=== PATIENT | female | born 1955 | race Two or more races ===

== ENCOUNTER 2024-04-03 16:12 | Inpatient (IN) | payer MEDICAID ==
[~2024-04-03] VITALS: Ht 165.1 cm; Wt 78.1 kg
[~2024-04-03 16:12] MED LIST: CEPH-37 PO; CIPR-173 PO; FURO1TAB31 PO; FURO40TA4; IBUP-1456; LISI10TA34; METO25TA5; OXYGEN; POTA-220 PO; POTA-264 OR; WARF-110 PO
[2024-04-03 18:14] LABS: Urine Bacteria FEW /hpf (None Seen); Urine Blood 2+ /uL (Negative); Urine Clarity Turbid (Clear); Urine Color Colorless (Yellow); Urine Hyaline Cast FEW /lpf (0 - 2); Urine Protein, UAD 1+ (Negative); Urine Specific Gravity 1.009 (1.001-1.035); Urine Urobilinogen Normal (Negative); Urine WBC 110 /hpf (0 - 5); Urine pH 5.5 (5.0-9.0)
[2024-04-03 18:49] LABS: Basophils # (auto) 0 10 ^3/uL (0-0.2); Basophils % (auto) 0.6 % (0.0-2.0); Eosinophils # (auto) 0.2 10 ^3/uL (0-0.8); Eosinophils % (auto) 2.1 % (0.0-7.0); Hematocrit 38.7 % (36.0-46.0); Hemoglobin 12.5 g/dL (12.2-16.2); Lymphocytes # (auto) 1.1 10 ^3/uL (0.4-5.4); Mean Corpuscular Hemoglobin 32.1 pg (28.0-32.0); Mean Corpuscular Hgb Conc. 32.3 g/dL (32.0-36.0); Mean Corpuscular Volume 99.4 fL (80.0-100.0); Monocytes # (auto) 0.5 10 ^3/uL (0-1.3); Monocytes % (auto) 7.1 % (0.0-12.0); Neutrophils # (auto) 5.5 10 ^3/uL (1.6-8.6); Neutrophils % (auto) 75.2 % (37.0-80.0); Nucleated Red Blood Cells % 0.1 %; Red Blood Cells 3.89 10^6/uL (4.0-5.20); Red Cell Distribution Width 14.5 % (11.8-14.3); White Blood Cell 7.3 10^3/uL (4.4-10.8)
[2024-04-03 19:01] LABS: Alanine Aminotransferase 10 U/L (7-40); Albumin 4.2 g/dL (3.2-4.8); Alkaline Phosphatase 101 U/L (46-116); Anion Gap 4 (5-15); Aspartate Aminotransferase 16 U/L (13-40); Bilirubin, Total 0.4 mg/dL (0.2-1.0); Blood Urea Nitrogen 50 mg/dL (9-23); Calcium 9.7 mg/dL (8.5-10.1); Carbon Dioxide 35 mmol/L (20-30); Chloride 101 mmol/L (98-107); Glucose 128 mg/dL (74-106); Sodium 140 mmol/L (136-145); Total Protein 7.4 g/dL (5.7-8.2)
[2024-04-03] MEDS ORDERED: ALBUTEROL SULF 2.5 MG/0.5ML(0.5%) NEB SOLN NEB ONE (19:30)
[2024-04-03] MEDS: CALCIUM GLUC 1,000mg/50ml-NS 50 ML IV ONE (21:08)
[2024-04-03] MEDS: FUROSEMIDE 20 MG/2 ML VIAL IV ONE (21:09)
[2024-04-03] MEDS: SODIUM ZIRCONIUM CYCL 10 GM PAK PO ONE (21:09)
[2024-04-03] MEDS: InsuLIN REG 1unit/0.01ml Soln (100units/ml) IV ONE (21:10)
[2024-04-03] MEDS: DEXTROSE (50%) 50ML SYRG IV ONE (21:19)
[2024-04-03] MEDS: SODIUM BICARB 8.4% 50Meq/50ml SYR INJ IV ONE (21:19)
[2024-04-03] MEDS ORDERED: ONDANSETRON HCL 4 MG/2 ML VIAL IV PRN (21:45)
[2024-04-03] MEDS ORDERED: DEXTROSE (50%) 50ML SYRG IV PRN (21:45)
[2024-04-03] MEDS ORDERED: ALBUTEROL SULF 2.5 MG/0.5ML(0.5%) NEB SOLN NEB PRN (21:45)
[2024-04-03] MEDS ORDERED: NITROGLYCERIN 0.4 MG SL TAB SL PRN (21:45)
[2024-04-03] MEDS: cefTRIAXone 1GM/50ML D5W 50 ML IV ONE (22:15)
[2024-04-03] MEDS: ATORVASTATIN 20 MG TAB PO SCH (22:15)
[2024-04-03 22:40] LABS: INR 1.02 (0.9-1.15); Partial Thromboplastin Time 23.8 SEC (24.5-34.5); Prothrombin Time 10.8 sec (9.3-11.8)
[2024-04-03] MEDS: InsuLIN REG 1unit/0.01ml Soln (100units/ml) SC SCH (22:49)
[2024-04-03] MEDS: ACCU-CHEK COMFORT CURVE STRIP VI SCH (22:49)
[2024-04-03] MEDS: METOPROLOL TARTRATE 50 MG TAB PO ONE (22:54)
[2024-04-03 23:43] VITALS: BP 147/69; PULSE 109; RESP 20; TEMP 98; O2SAT 100; O2SAT 97
[2024-04-04] MEDS: HYDROcodone-ACET 7.5/325MG TAB ONE (01:17)
[2024-04-04] MEDS: HYDROcodone-ACET 7.5/325MG TAB PO PRN (01:54)
[2024-04-04 05:02] LABS: Basophils # (auto) 0 10 ^3/uL (0-0.2); Basophils % (auto) 0.4 % (0.0-2.0); Eosinophils # (auto) 0.1 10 ^3/uL (0-0.8); Lymphocytes % (auto) 12.5 % (10.0-50.0); Mean Corpuscular Hemoglobin 32.7 pg (28.0-32.0); Mean Corpuscular Hgb Conc. 32.3 g/dL (32.0-36.0); Mean Corpuscular Volume 101.2 fL (80.0-100.0); Monocytes # (auto) 0.6 10 ^3/uL (0-1.3); Monocytes % (auto) 7.9 % (0.0-12.0); Neutrophils # (auto) 6.4 10 ^3/uL (1.6-8.6); Neutrophils % (auto) 78.2 % (37.0-80.0); Nucleated Red Blood Cells % 0.1 %; Red Blood Cells 3.66 10^6/uL (4.0-5.20); Red Cell Distribution Width 14.5 % (11.8-14.3); White Blood Cell 8.2 10^3/uL (4.4-10.8)
[2024-04-04] MEDS: ENOXAPARIN SOD 100 MG/1 ML SYRINGE SC ONE (05:27)
[2024-04-04 05:51] LABS: Albumin 3.7 g/dL (3.2-4.8); Alkaline Phosphatase 89 U/L (46-116); Anion Gap 6 (5-15); Aspartate Aminotransferase 16 U/L (13-40); BUN/Creatinine Ratio 26.3 (10.0-20.0); Bilirubin, Total 0.3 mg/dL (0.2-1.0); Calcium 9.4 mg/dL (8.5-10.1); Carbon Dioxide 27 mmol/L (20-30); Chloride 101 mmol/L (98-107); Glucose 131 mg/dL (74-106); Potassium 4.8 mmol/L (3.5-5.1); Total Protein 7.1 g/dL (5.7-8.2)
[2024-04-04 05:52] LABS: Alanine Aminotransferase 9 U/L (7-40); Blood Urea Nitrogen 30 mg/dL (9-23); Sodium 134 mmol/L (136-145)
[2024-04-04] MEDS: FUROSEMIDE 20 MG/2 ML VIAL IV SCH (06:50)
[2024-04-04 07:23] VITALS: PULSE 96; RESP 18; O2SAT 91
[2024-04-04] MEDS: ASPirin 81 mg TAB PO SCH ×2 (10:00→10:18)
[2024-04-04] MEDS: SPIRONOLACTONE 25 MG TAB PO SCH (10:18)
[2024-04-04] MEDS: BENAZEPRIL HCL 10 MG TAB PO SCH (10:19)
[2024-04-04] MEDS: METOPROLOL TARTRATE 50 MG TAB PO SCH (10:19)
[2024-04-04 10:26] VITALS: O2SAT 99
[2024-04-04 11:48] LABS: Magnesium 2.6 mg/dL (1.6-2.6)
[2024-04-04 11:50] LABS: Phosphorus 3.9 mg/dL (2.4-5.1)
[2024-04-04 12:53] LABS: Protein, Urine 14.4 mg/dL (0.0-11.9)
[2024-04-04 12:56] LABS: Creatinine, Urine 32.18 mg/dL (30.0-125.0); Urine Protein/Creatinine Ratio 0.45
[2024-04-04 13:19] LABS: Base Excess 7.8 mmol/L (-2.0-2.0)
[2024-04-04 18:34] VITALS: BP 106/62; PULSE 99; RESP 17; TEMP 98.1; O2SAT 95
[2024-04-04] MEDS ORDERED: BENA-36 PO (18:55)
[2024-04-04] MEDS ORDERED: ASPI81CH59 PO (18:56)
[2024-04-04] MEDS ORDERED: SPIR25TA8 PO (18:56)
[2024-04-04] MEDS ORDERED: METO25TA5 PO (18:57)
[2024-04-04] MEDS ORDERED: FURO80TA3 PO (18:58)
[2024-04-04] MEDS ORDERED: IBUP-1454 PO (19:02)
[2024-04-04] MEDS ORDERED: HYDR-4798 PO (19:04)
[2024-04-04 20:00] VITALS: BP 111/55; PULSE 107; PULSE 87; RESP 22; TEMP 97.7; O2SAT 96
[2024-04-04 20:55] LABS: Triglycerides 163 mg/dL (< 150)
[2024-04-04 20:56] LABS: LDL Cholesterol 127 mg/dL (< 100)
[2024-04-04 20:57] LABS: Cholesterol 192 mg/dL (< 200); HDL Cholesterol 48 mg/dL (40-59)
[2024-04-04 21:00] VITALS: BP 111/55; PULSE 87; RESP 22; TEMP 97.7; O2SAT 95
[2024-04-04] MEDS ORDERED: AZITHROMYCIN 500MG/ 250ML 250 ML IV SCH (21:00)
[2024-04-04] MEDS: DOXYCYCLINE 100MG/250ML 250 ML IV SCH (21:01)
[2024-04-04] MEDS: cefTRIAXone 1GM/50ML D5W 50 ML IV SCH (21:01)
[2024-04-04] MEDS: ATORVASTATIN 20 MG TAB PO SCH (21:02)
[2024-04-04] MEDS: ENOXAPARIN SOD 150 MG/1 ML SYRINGE SC SCH (23:00)
[2024-04-05] VITALS (9 sets, daily range): BP systolic 98–131; BP diastolic 62–75; PULSE 69–107; RESP 15–18; TEMP 97.6–98.4; O2SAT 94–100
[2024-04-05 07:36] LABS: Base Excess 8.2 mmol/L (-2.0-2.0)
[2024-04-05] MEDS: ASPirin 81 mg TAB PO SCH (08:52)
[2024-04-05] MEDS ORDERED: ENOXAPARIN SOD 100 MG/1 ML SYRINGE SC SCH (09:00)
[2024-04-05 09:59] LABS: Basophils # (auto) 0 10 ^3/uL (0-0.2); Basophils % (auto) 0.7 % (0.0-2.0); Eosinophils # (auto) 0.2 10 ^3/uL (0-0.8); Eosinophils % (auto) 2.9 % (0.0-7.0); Hematocrit 36.8 % (36.0-46.0); Hemoglobin 11.7 g/dL (12.2-16.2); Lymphocytes # (auto) 0.9 10 ^3/uL (0.4-5.4); Lymphocytes % (auto) 15.5 % (10.0-50.0); Mean Corpuscular Hemoglobin 31.8 pg (28.0-32.0); Mean Corpuscular Hgb Conc. 31.7 g/dL (32.0-36.0); Mean Corpuscular Volume 100.3 fL (80.0-100.0); Monocytes # (auto) 0.4 10 ^3/uL (0-1.3); Monocytes % (auto) 6.8 % (0.0-12.0); Neutrophils # (auto) 4.1 10 ^3/uL (1.6-8.6); Neutrophils % (auto) 74.1 % (37.0-80.0); Nucleated Red Blood Cells % 0.2 %; Red Blood Cells 3.67 10^6/uL (4.0-5.20); Red Cell Distribution Width 14.1 % (11.8-14.3); White Blood Cell 5.6 10^3/uL (4.4-10.8)
[2024-04-05 10:35] LABS: Albumin 3.7 g/dL (3.2-4.8); Alkaline Phosphatase 90 U/L (46-116); Anion Gap 4 (5-15); Aspartate Aminotransferase 18 U/L (13-40); BUN/Creatinine Ratio 27.4 (10.0-20.0); Bilirubin, Total 0.4 mg/dL (0.2-1.0); Blood Urea Nitrogen 26 mg/dL (9-23); Calcium 9.5 mg/dL (8.5-10.1); Carbon Dioxide 34 mmol/L (20-30); Chloride 98 mmol/L (98-107); Glucose 141 mg/dL (74-106); Magnesium 2.3 mg/dL (1.6-2.6); Potassium 4.6 mmol/L (3.5-5.1); Sodium 136 mmol/L (136-145)
[2024-04-05 10:53] LABS: Alanine Aminotransferase < 9 U/L (7-40)
[2024-04-05] MEDS: LACTULOSE 20Gm/30ML SOLN PO SCH (14:57)
[2024-04-06] VITALS (7 sets, daily range): BP systolic 91–146; BP diastolic 55–70; PULSE 72–107; RESP 16–20; TEMP 36.8; O2SAT 93–98
[2024-04-06] MEDS ORDERED: AMOX500T86 PO (09:14)
== END 2024-04-06 14:45 | disposition home or self-care (01) | DRG 137 ==
LOC: ER 16:12 → TELE 21:53 → TELE-CENTR 04-04 17:54
PROVIDERS: ADMIT Internal Medicine Pulmonary Disease; ATTEND Internal Medicine Pulmonary Disease
DX: J15.69 Pneumonia due to other Gram-negative bacteria (principal); J96.01 Acute respiratory failure with hypoxia; I50.33 Acute on chronic diastolic (congestive) heart failure; I13.0 Hypertensive heart and chronic kidney disease with heart failure and stage 1 through stage 4 chronic kidney disease, or unspecified chronic kidney disease; E87.4 Mixed disorder of acid-base balance; E11.22 Type 2 diabetes mellitus with diabetic chronic kidney disease; J15.9 Unspecified bacterial pneumonia; E87.5 Hyperkalemia; Z68.28 Body mass index [BMI] 28.0-28.9, adult; E66.01 Morbid (severe) obesity due to excess calories; N18.9 Chronic kidney disease, unspecified; G47.33 Obstructive sleep apnea (adult) (pediatric); E78.5 Hyperlipidemia, unspecified; M19.90 Unspecified osteoarthritis, unspecified site; I48.20 Chronic atrial fibrillation, unspecified; I25.10 Atherosclerotic heart disease of native coronary artery without angina pectoris; N95.0 Postmenopausal bleeding; Z79.82 Long term (current) use of aspirin; Z79.899 Other long term (current) drug therapy
CPT/HCPCS: 36415; 36600; 71045; 71275; 76604; 76775; 76830; 76856; 80053; 80061; 81001; 82306; 82570; 82805; 82962; 83036; 83735; 83880; 83970; 84100; 84156; 84300; 84484; 85025; 85379; 85610; 85730; 93005; 93306; 93970; 94644; G0378; J1815; J3490

== ENCOUNTER 2024-06-27 03:04 | Inpatient (IN) | payer MEDICAID ==
[~2024-06-27] VITALS: Ht 165.1 cm; Wt 178.0 kg
[~2024-06-27 03:04] MED LIST changes: +AMOX500T86 PO; +ASPI81CH59 PO; +BENA-36 PO; -CEPH-37 PO; -CIPR-173 PO; -FURO1TAB31 PO; -FURO40TA4; +FURO80TA3 PO; +HYDR-4798 PO; +IBUP-1454 PO; -IBUP-1456; -LISI10TA34; -METO25TA5; +METO25TA5 PO; -POTA-220 PO; +SPIR25TA8 PO; -WARF-110 PO
[2024-06-27 03:27] LABS: Basophils # (auto) 0 10 ^3/uL (0-0.2); Basophils % (auto) 0.6 % (0.0-2.0); Eosinophils # (auto) 0.1 10 ^3/uL (0-0.8); Eosinophils % (auto) 1.9 % (0.0-7.0); Hematocrit 35.6 % (36.0-46.0); Hemoglobin 11.1 g/dL (12.2-16.2); Lymphocytes # (auto) 1.3 10 ^3/uL (0.4-5.4); Lymphocytes % (auto) 21.4 % (10.0-50.0); Mean Corpuscular Hemoglobin 27.9 pg (28.0-32.0); Mean Corpuscular Hgb Conc. 31.2 g/dL (32.0-36.0); Mean Corpuscular Volume 89.3 fL (80.0-100.0); Monocytes # (auto) 0.5 10 ^3/uL (0-1.3); Monocytes % (auto) 8.6 % (0.0-12.0); Neutrophils # (auto) 4.2 10 ^3/uL (1.6-8.6); Neutrophils % (auto) 67.5 % (37.0-80.0); Nucleated Red Blood Cells % 0.1 %; Red Blood Cells 3.99 10^6/uL (4.0-5.20); Red Cell Distribution Width 16.7 % (11.8-14.3); White Blood Cell 6.2 10^3/uL (4.4-10.8)
[2024-06-27 03:40] LABS: Albumin 4.2 g/dL (3.2-4.8); Alkaline Phosphatase 91 U/L (46-116); Anion Gap 4 (5-15); Aspartate Aminotransferase < 8 U/L (13-40); BUN/Creatinine Ratio 26.8 (10.0-20.0); Blood Urea Nitrogen 33 mg/dL (9-23); Calcium 9.8 mg/dL (8.7-10.4); Carbon Dioxide 35 mmol/L (20-30); Chloride 99 mmol/L (98-107); Glucose 129 mg/dL (74-106); Magnesium 2.7 mg/dL (1.6-2.6); Potassium 5.4 mmol/L (3.5-5.1); Sodium 138 mmol/L (136-145)
[2024-06-27 03:41] LABS: Bilirubin, Total 0.6 mg/dL (0.2-1.0); Total Protein 7.4 g/dL (5.7-8.2)
[2024-06-27 03:44] LABS: INR 1.05 (0.9-1.15); Partial Thromboplastin Time 24.5 SEC (24.5-34.5); Prothrombin Time 11.1 sec (9.3-11.8)
[2024-06-27 03:45] LABS: Alanine Aminotransferase < 9 U/L (7-40)
[2024-06-27] MEDS: dilTIAZem 125mg/125ml BAG KIT 125 ML IV ONE (04:35)
[2024-06-27] MEDS: dilTIAZem 25 MG/5 ML VIAL IV ONE ×2 (04:41→05:55)
[2024-06-27 04:51] LABS: INR 1.03 (0.9-1.15); Prothrombin Time 10.9 sec (9.3-11.8)
[2024-06-27] MEDS: HYDROcodone-ACET 10/325MG TAB PO ONE (04:57)
[2024-06-27] MEDS: ASPirin 81 mg TAB PO ONE (05:50)
[2024-06-27 06:12] LABS: Urine Bacteria FEW /hpf (None Seen); Urine Blood TRACE /uL (Negative); Urine Clarity Clear (Clear); Urine Color Yellow (Yellow); Urine Protein, UAD Negative (Negative); Urine Urobilinogen Normal (Negative); Urine WBC 6 /hpf (0 - 5); Urine pH 6.5 (5.0-9.0)
[2024-06-27] MEDS ORDERED: PATIENTS OWN MEDICATION (Lisinopril 40 MG) PO SCH (10:00)
[2024-06-27] MEDS ORDERED: NITROGLYCERIN 0.4 MG SL TAB SL PRN (10:00)
[2024-06-27] MEDS ORDERED: PATIENTS OWN MEDICATION (Carvedilol (Coreg) 1 TAB) PO SCH (10:00)
[2024-06-27] MEDS: HYDROcodone-ACET 5/325MG TAB PO PRN (10:52)
[2024-06-27] MEDS: SODIUM ZIRCONIUM CYCL 10 GM PAK PO ONE (10:52)
[2024-06-27] MEDS: BUMETANIDE 2.5mg/10ml (0.25 mg/ml) INJ IV ONE (10:56)
[2024-06-27 11:17] LABS: Triglycerides 98 mg/dL (< 150)
[2024-06-27 11:18] LABS: LDL Cholesterol 43 mg/dL (< 100)
[2024-06-27 11:19] LABS: Cholesterol 105 mg/dL (< 200); HDL Cholesterol 48 mg/dL (40-59)
[2024-06-27 11:49] LABS: Amphetamine Screen, Urine Neg (NEGATIVE); Barbiturate Scree,Urine Neg (NEGATIVE); Benzodiazephine Screen, Urine Neg (NEGATIVE); Cannabinoid Screen, Urine Neg (NEGATIVE); Cocaine Screen, Urine Neg (NEGATIVE); Opiate Scree,Urine Pos (NEGATIVE); Phencyclidine Screen, Urine Neg (NEGATIVE)
[2024-06-27 12:25] VITALS: BP 112/64; PULSE 94; RESP 16; TEMP 98.1; O2SAT 96
[2024-06-27 16:00] VITALS: BP 101/67; PULSE 83; RESP 20; TEMP 98.3; O2SAT 98
[2024-06-27] MEDS: BUMETANIDE 2.5mg/10ml (0.25 mg/ml) INJ IV SCH (18:22)
[2024-06-27] MEDS: dilTIAZem HCL 60 MG TAB PO SCH (18:23)
[2024-06-27 20:00] VITALS: PULSE 115; PULSE 92; RESP 20; O2SAT 96
[2024-06-27 21:00] VITALS: BP 102/56; PULSE 92; RESP 20; TEMP 98.8; O2SAT 96
[2024-06-27] MEDS: ATORVASTATIN 20 MG TAB PO SCH (22:12)
[2024-06-27] MEDS: CARVEDILOL 12.5 MG TAB PO SCH (22:13)
[2024-06-28] VITALS (9 sets, daily range): BP systolic 83–134; BP diastolic 37–89; PULSE 59–95; RESP 16–20; TEMP 97.5–98.7; O2SAT 93–99
[2024-06-28 06:44] LABS: Basophils # (auto) 0 10 ^3/uL (0-0.2); Basophils % (auto) 0.5 % (0.0-2.0); Eosinophils # (auto) 0.1 10 ^3/uL (0-0.8); Eosinophils % (auto) 2.3 % (0.0-7.0); Hematocrit 31.8 % (36.0-46.0); Hemoglobin 9.9 g/dL (12.2-16.2); Lymphocytes # (auto) 0.7 10 ^3/uL (0.4-5.4); Lymphocytes % (auto) 14.8 % (10.0-50.0); Mean Corpuscular Hemoglobin 27.8 pg (28.0-32.0); Mean Corpuscular Hgb Conc. 31.2 g/dL (32.0-36.0); Monocytes # (auto) 0.4 10 ^3/uL (0-1.3); Monocytes % (auto) 8.6 % (0.0-12.0); Neutrophils # (auto) 3.7 10 ^3/uL (1.6-8.6); Neutrophils % (auto) 73.8 % (37.0-80.0); Nucleated Red Blood Cells % 0.1 %; Red Blood Cells 3.57 10^6/uL (4.0-5.20)
[2024-06-28 06:50] LABS: Albumin 3.6 g/dL (3.2-4.8); Alkaline Phosphatase 76 U/L (46-116); Anion Gap 0 (5-15); Aspartate Aminotransferase < 8 U/L (13-40); BUN/Creatinine Ratio 28.6 (10.0-20.0); Bilirubin, Total 0.8 mg/dL (0.2-1.0); Blood Urea Nitrogen 30 mg/dL (9-23); Calcium 9.4 mg/dL (8.7-10.4); Carbon Dioxide 39 mmol/L (20-30); Chloride 100 mmol/L (98-107); Glucose 103 mg/dL (74-106); Sodium 139 mmol/L (136-145); Total Protein 6.4 g/dL (5.7-8.2)
[2024-06-28 07:20] LABS: Alanine Aminotransferase < 9 U/L (7-40); Potassium 5.6 mmol/L (3.5-5.1)
[2024-06-28] MEDS: SODIUM ZIRCONIUM CYCL 10 GM PAK PO ONE (09:37)
[2024-06-28] MEDS: LISINOPRIL 20 MG TAB PO SCH (09:38)
[2024-06-28] MEDS: LORazepam 2MG/ML-1ML VIAL IV PRN (09:39)
[2024-06-28] MEDS ORDERED: CYCL-839 PO (17:20)
[2024-06-28] MEDS ORDERED: OMEP1CAP70 PO (17:20)
[2024-06-28] MEDS ORDERED: ATOR20TA PO (17:20)
[2024-06-28] MEDS ORDERED: BUMEX2MG PO (17:20)
[2024-06-28 23:24] LABS: Alkaline Phosphatase 72 U/L (46-116); Aspartate Aminotransferase 12 U/L (13-40); BUN/Creatinine Ratio 31.1 (10.0-20.0); Blood Urea Nitrogen 32 mg/dL (9-23); Carbon Dioxide 37 mmol/L (20-30); Chloride 100 mmol/L (98-107); Glucose 119 mg/dL (74-106); Potassium 5.4 mmol/L (3.5-5.1)
[2024-06-28 23:25] LABS: Albumin 3.5 g/dL (3.2-4.8); Bilirubin, Total 0.5 mg/dL (0.2-1.0); Total Protein 6.2 g/dL (5.7-8.2)
[2024-06-28 23:45] LABS: Alanine Aminotransferase < 9 U/L (7-40); Anion Gap 0 (5-15); Sodium 134 mmol/L (136-145)
[2024-06-29] VITALS (8 sets, daily range): BP systolic 102–114; BP diastolic 42–58; PULSE 67–91; RESP 17–20; TEMP 97.4–98.4; O2SAT 90–97
[2024-06-29 06:22] LABS: Basophils # (auto) 0 10 ^3/uL (0-0.2); Basophils % (auto) 0.5 % (0.0-2.0); Eosinophils # (auto) 0.1 10 ^3/uL (0-0.8); Eosinophils % (auto) 1.9 % (0.0-7.0); Hematocrit 31.1 % (36.0-46.0); Hemoglobin 9.9 g/dL (12.2-16.2); Lymphocytes # (auto) 0.9 10 ^3/uL (0.4-5.4); Lymphocytes % (auto) 16.6 % (10.0-50.0); Mean Corpuscular Hemoglobin 28.6 pg (28.0-32.0); Mean Corpuscular Hgb Conc. 31.8 g/dL (32.0-36.0); Mean Corpuscular Volume 89.7 fL (80.0-100.0); Monocytes # (auto) 0.5 10 ^3/uL (0-1.3); Monocytes % (auto) 8.4 % (0.0-12.0); Neutrophils # (auto) 3.9 10 ^3/uL (1.6-8.6); Neutrophils % (auto) 72.6 % (37.0-80.0); Red Blood Cells 3.46 10^6/uL (4.0-5.20); Red Cell Distribution Width 16.4 % (11.8-14.3); White Blood Cell 5.4 10^3/uL (4.4-10.8)
[2024-06-29 07:46] LABS: Alanine Aminotransferase < 9 U/L (7-40); Albumin 3.7 g/dL (3.2-4.8); Alkaline Phosphatase 75 U/L (46-116); Anion Gap 3 (5-15); Aspartate Aminotransferase 9 U/L (13-40); Bilirubin, Total 0.6 mg/dL (0.2-1.0); Blood Urea Nitrogen 24 mg/dL (9-23); Calcium 9.2 mg/dL (8.7-10.4); Carbon Dioxide 35 mmol/L (20-30); Chloride 99 mmol/L (98-107); Glucose 95 mg/dL (74-106); Potassium 5.1 mmol/L (3.5-5.1); Sodium 137 mmol/L (136-145); Total Protein 6.5 g/dL (5.7-8.2)
[2024-06-30] VITALS (7 sets, daily range): BP systolic 89–126; BP diastolic 52–81; PULSE 65–91; RESP 18–20; TEMP 97.7–98.6; O2SAT 93–96
[2024-06-30 06:27] LABS: Basophils # (auto) 0 10 ^3/uL (0-0.2); Basophils % (auto) 0.4 % (0.0-2.0); Eosinophils # (auto) 0.1 10 ^3/uL (0-0.8); Eosinophils % (auto) 1.8 % (0.0-7.0); Hematocrit 31.3 % (36.0-46.0); Lymphocytes # (auto) 0.9 10 ^3/uL (0.4-5.4); Lymphocytes % (auto) 16.4 % (10.0-50.0); Mean Corpuscular Hemoglobin 28.4 pg (28.0-32.0); Mean Corpuscular Hgb Conc. 32.1 g/dL (32.0-36.0); Mean Corpuscular Volume 88.3 fL (80.0-100.0); Monocytes # (auto) 0.5 10 ^3/uL (0-1.3); Monocytes % (auto) 9.8 % (0.0-12.0); Neutrophils % (auto) 71.6 % (37.0-80.0); Nucleated Red Blood Cells % 0.1 %; Red Blood Cells 3.54 10^6/uL (4.0-5.20); Red Cell Distribution Width 16.7 % (11.8-14.3); White Blood Cell 5.6 10^3/uL (4.4-10.8)
[2024-06-30 07:11] LABS: Erythrocyte Sedimentation Rate 27 mm/hr (0-20)
[2024-06-30] MEDS: DOCUSATE SOD 100 MG CAP PO PRN (14:01)
[2024-06-30] MEDS: dilTIAZem 120MG ER CAP PO ONE (14:02)
[2024-06-30] MEDS: POLYETHYLENE GLYCOL 17 GM PWDR PO ONE (17:26)
[2024-07-01 01:00] VITALS: BP 109/67; PULSE 81; RESP 18; TEMP 98; O2SAT 94
[2024-07-01 05:00] VITALS: BP 104/61; PULSE 84; RESP 18; TEMP 97.5; O2SAT 91
[2024-07-01 08:00] VITALS: PULSE 82; PULSE 88; RESP 20; O2SAT 94
[2024-07-01 08:50] VITALS: BP 115/79; PULSE 88; RESP 20; TEMP 98.5; O2SAT 94
[2024-07-01] MEDS: dilTIAZem 120MG ER CAP PO SCH (08:58)
[2024-07-01] MEDS: POLYETHYLENE GLYCOL 17 GM PWDR PO SCH (08:58)
[2024-07-01 12:30] VITALS: BP 126/69; PULSE 71; RESP 20; TEMP 98.4; O2SAT 94
[2024-07-01] MEDS ORDERED: DILT-29 PO (15:48)
[2024-07-01 16:25] VITALS: BP 115/57; PULSE 76; RESP 19; TEMP 98.3; O2SAT 96
[2024-07-02 09:22] LABS: Hepatitis B Core Total AB Negative (Negative)
[2024-07-02 10:58] LABS: Hepatitis A Total Antibody Positive (Negative)
[2024-07-02 10:59] LABS: Hepatitis B Surface Antibody Negative (Negative); Hepatitis B Surface Antigen Negative (Negative); Hepatitis C Antibody Negative (Negative)
== END 2024-07-01 16:50 | disposition home or self-care (01) | DRG 133 ==
LOC: ER 03:04 → TELE 10:15 → ER 10:15 → EDUNIT# 10:15 → TELE-WESTW 12:16
PROVIDERS: ADMIT Internal Medicine Geriatric Medicine; ATTEND Internal Medicine Geriatric Medicine
DX: J96.01 Acute respiratory failure with hypoxia (principal); N17.0 Acute kidney failure with tubular necrosis; I21.A1 Myocardial infarction type 2; I50.43 Acute on chronic combined systolic (congestive) and diastolic (congestive) heart failure; D69.6 Thrombocytopenia, unspecified; I27.20 Pulmonary hypertension, unspecified; I48.20 Chronic atrial fibrillation, unspecified; J44.1 Chronic obstructive pulmonary disease with (acute) exacerbation; I13.0 Hypertensive heart and chronic kidney disease with heart failure and stage 1 through stage 4 chronic kidney disease, or unspecified chronic kidney disease; Z68.44 Body mass index [BMI] 60.0-69.9, adult; E66.01 Morbid (severe) obesity due to excess calories; E87.5 Hyperkalemia; K74.60 Unspecified cirrhosis of liver; N18.9 Chronic kidney disease, unspecified; N93.9 Abnormal uterine and vaginal bleeding, unspecified; K80.20 Calculus of gallbladder without cholecystitis without obstruction; G47.33 Obstructive sleep apnea (adult) (pediatric); F41.9 Anxiety disorder, unspecified; E78.5 Hyperlipidemia, unspecified; D50.9 Iron deficiency anemia, unspecified; K59.00 Constipation, unspecified; R73.03 Prediabetes; Z98.61 Coronary angioplasty status; Z99.81 Dependence on supplemental oxygen; Z79.84 Long term (current) use of oral hypoglycemic drugs; Z79.899 Other long term (current) drug therapy; Z79.82 Long term (current) use of aspirin; Z83.3 Family history of diabetes mellitus; Z74.01 Bed confinement status; Z99.3 Dependence on wheelchair
CPT/HCPCS: 36415; 71045; 73502; 74176; 76856; 80053; 80061; 80307; 81001; 82140; 82270; 82728; 82962; 83036; 83605; 83735; 83880; 84443; 84484; 85025; 85379; 85610; 85652; 85730; 86038; 86141; 86704; 86706; 86708; 86803; 87340; 93005; 93306; 96365; 96375; G0378

== ENCOUNTER 2025-02-19 10:53 | Inpatient (IN) | payer MEDICAID ==
[~2025-02-19] VITALS: Ht 165.1 cm; Wt 152.5 kg
[~2025-02-19 10:53] MED LIST changes: -AMOX500T86 PO; +ATOR20TA PO; +BUMEX2MG PO; +CYCL-839 PO; +DILT-29 PO; -FURO80TA3 PO; -IBUP-1454 PO; +OMEP1CAP70 PO; -OXYGEN; -POTA-264 OR
--- NOTE | 2025-02-19 11:19 | ED.PDOC ---
History of Present Illness HPI Comments This is a 69-year-old female who comes in with chief complaint of bilateral leg swelling times approximately one month. The patient was also complaining of some shortness for breath and chest pain. She was rolled into the emergency department's in a wheelchair by her family. The patient states that the shor tness a breath has been worsening and the leg swelling has been significantly increasing. She was actually admitted to [facility] about 1-1/2 months ago for an elevated potassium as well as significant anemia and elevated CO2 level. She is currently on home oxygen at 2 L nasal cannula. She has had a cough which is somewhat productive with white sputum. She denies any fever or chills. There is no one else in the house who was ill at this time. Does take a water pill which she states that she takes consistently but the symptoms seem to be worsening at this time. Chief Complaint: Extremity Swelling Time Seen by MD: 10:55 Reviewed Notes: Nurses Notes, Medications, Allergies (No allergies to medications) Allergies: Coded Allergies: NO KNOWN ALLERGIES (Unverified , 02/19/25) Information Source: Patient Mode of Arrival: Ambulatory Severity: Moderate Timing: Days Duration: Since onset Prehospital treatment: None Associated signs and symptoms Bilateral leg swelling with chest pressure and shortness for breath Past Medical History PAST MEDICAL HISTORY: AFIB, CHF, CKF, DM, HTN Surgical History: [employer] History: Denies all [employer] Hx Family History Family History: Reviewed,noncontributory to illness Social History Smoker: Non-Smoker Alcohol: Denies ETOH Use Drugs: Denies Drug Use Lives In: Home Constitutional: reports: weakness; denies: chills, diaphoresis, fatigue, fever, malaise, sweats, others EENTM: denies: blurred vision, double vision, ear bleeding, ear discharge, ear drainage, ear pain, ear ringing, eye pain, eye redness, hearing loss, mouth pain, mouth swelling, nasal discharge, nose bleeding, nose congestion, nose pain, photophobia, tearing, throat pain, throat swelling, voice changes, others Respiratory: reports: cough, shortness of breath; denies: hemoptysis, orthopnea, SOB at rest, SOB with excertion, stridor, wheezing, others Cardiovascular: reports: chest pain; denies: dizzy spells, diaphoresis, Dyspnea on exertion, edema, irregular heart beat, left arm pain, lightheadedness, palpitations, PND, syncope, others Gastrointestinal: denies: abdomen distended, abdominal pain, blood streaked bow els, constipated, diarrhea, dysphagia, difficulty swallowing, hematemesis, melena, nausea, poor appetite, poor fluid intake, rectal bleeding, rectal pain, vomiting, others Genitourinary: denies: abnormal vagina bleeding, burning, dyspareunia, dysuria, flank pain, frequency, hematuria, incontinence, pain, , vagina discharge, urgency, others Neurological: denies: dizziness, fainting, headache, left sided numbness, left sided weakness, numbness, paresthesia, pre-existing deficit, right sided numbness, right sided weakness, seizure, speech problems, tingling, tremors, weakness, others Musculoskeletal: reports: others (Bilateral leg swelling); denies: back pain, gout, joint pain, joint swelling, muscle pain, muscle stiffness, neck pain Integumetry: denies: bruises, change in color, change in hair/nails, dryness, laceration, lesions, lumps, rash, wounds, others Allergic/Immunocompromised: denies: Difficulty Healing, Frequent Infections, Hives, Itching, others Hematologic/Lymphatic: denies: anemia, blood clots, easy bleeding, easy bruising, swollen glands, others Endocrine: denies: excessive hunger, excessive sweating, excessive thirst, excessive urination, flushing, intolerance to cold, intolerance to heat, unex plained weight gain, unexplained weight loss, others Psychiatric: denies: anxiety, bipolar disorder, depression, hopeless, panic disorder, schizophrenia, sleepless, suicidal, others Physical Exam General Appearance: Moderate Distress, Obese HEENT: Pale Conjuntivae (L), Pale Conjuntivae (R), Pharynx Normal, TMs Normal Neck: Full Range of Motion, Non-Tender, Normal, Normal Inspection Respiratory: Chest Non-Tender, Decreased Breath Sounds, No Accessory Muscle Use, Rales, Respiratory Distress Cardiovascular: No Edema, No JVD, No Murmur, No Gallop, Normal Peripheral Pulses, Regular Rate/Rhythm Breast Exam: Deferred Gastrointestinal: No Organomegaly, Non Tender, No Pulsatile Mass, Normal Bowel Sounds, Soft Genitalia: Deferred Pelvic: Deferred Rectal: Deferred Extremities: No calf tenderness, Normal capillary refill, Pedal edema Musculoskeletal : Apperance: Normal Neurologic: Alert, colorer II-XII nml as Tested, Motor Weakness, Normal Affect, Normal Mood, No Sensory Deficits Cerebellar Function: Normal Reflexes: Normal Skin: Dry, Pallor, Warm Lymphatic: No Adenopathy Was a procedure done? Was a procedure done?: No Differential Dx Considerations may include: CHF, PE, generalized weakness, electrolyte imbalance, acute on chronic diastolic heart failure X-Ray, Labs, Meds, VS Vital Signs Date Time Temp Pulse Resp B/P (MAP) Pulse Ox O2 Delivery O2 Flow Rate FiO2 02/19/25 14:49 98.3 90 19 104/70 (81) 95 98.3 02/19/25 12:34 18 98 Room Air* 0 21 02/19/25 12:32 103/66 02/19/25 12:27 83 17 95 Room Air 2.0 02/19/25 12:27 97.5 83 17 103/66 (78) 95 97.5 02/19/25 11:07 97.9 75 20 96/64 (75) 97 97.9 Lab Test 02/19/25 13:11 02/19/25 11:28 Range/Units Troponin I High Sensitivity 44 *H 42 *H </=34 ng/L White Blood Count 5.7 4.4-10.8 10^3/uL Red Blood Count 3.33 L 4.0-5.20 10^6/uL Hemoglobin 10.2 L 12.2-16.2 g/dL Hematocrit 32.6 L 36.0-46.0 % Mean Corpuscular Volume 97.9 80.0-100.0 fL Mean Corpuscular Hemoglobin 30.5 28.0-32.0 pg Mean Corpuscular Hemoglobin Concent 31.1 L 32.0-36.0 g/dL Red Cell Distribution Width 24.2 H 11.8-14.3 % Platelet Count 124 L 140-450 10^3/uL Mean Platelet Volume 8.3 6.9-10.8 fL Neutrophils (%) (Auto) 79.5 37.0-80.0 % Lymphocytes (%) (Auto) 10.0 10.0-50.0 % Monocytes (%) (Auto) 10.1 0.0-12.0 % Eosinophils (%) (Auto) 0.1 0.0-7.0 % Basophils (%) (Auto) 0.3 0.0-2.0 % Neutrophils # (Auto) 4.6 1.6-8.6 10 ^3/uL Lymphocytes # (Auto) 0.6 0.4-5.4 10 ^3/uL Monocytes # (Auto) 0.6 0-1.3 10 ^3/uL Eosinophils # (Auto) 0 0-0.8 10 ^3/uL Basophils # (Auto) 0 0-0.2 10 ^3/uL Nucleated Red Blood Cells 0.7 % Platelet Estimate Decreased Anisocytosis (manual) Slight B-Type Natriuretic Peptide 551.22 0-100 pg/mL The troponin level is elevated x2. The patient's CBC is within normal limits The BNP is 551.22 The patient was initially hypotensive but now the blood pressure has increased The chest x-ray shows: IMPRESSION: Pulmonary edema and/or multifocal airspace disease. The patient was given Lasix 40 mg IV push The patient was being admitted at this time Images Reviewed?: Images reviewed and evaluated by me Time of 1ST Reevaluation: 11:19 Reevaluation 1ST: Unchanged Patient Education/Counseling: Diagnosis, Treatment, Prognosis Family Education/Counseling: Diagnosis, Treatment, Prognosis Departure 1 Departure Time of Disposition: 15:21 Impression: Primary Impression: Acute on chronic diastolic heart failure Additional Impressions: Pulmonary edema Qualified Codes: J81.0 - Acute pulmonary edema Leg edema Elevated troponin Disposition: ADMITTED INPATIENT Admit to: [facility] Condition: Fair Critical Care Note Critical Care Time?: Yes (55 min-critical care time only) Stability Stability form required: Yes Unstable for transfer: Telemetry monitoring (Telemetry monitoring required), ED Physician Assesment (Clinical assesment) Heart Score Heart Score: Heart Score Response (Comments) Value History Moderate Suspicious 1 EKG Repolarization Disturb 1 Age >65 2 Risk Factors >3 or Hx ASHD 2 Troponin Normal limit 0 Total 6 MANNY TAVERA MD Feb 19, 2025 11:19
--- NOTE | 2025-02-19 11:37 | DVH ---
CHEST RADIOGRAPH Indication: sob Technique: Single frontal view of the chest was obtained COMPARISON: None FINDINGS: Lines and Tubes: None Lungs: Multifocal airspace disease. Pleura: No effusion. No pneumothorax. Cardiomediastinal contours: Cardiomegaly Bones: Unremarkable IMPRESSION: Pulmonary edema and/or multifocal airspace disease.
[2025-02-19 11:51] LABS: Basophils # (auto) 0 10 ^3/uL (0-0.2); Eosinophils # (auto) 0 10 ^3/uL (0-0.8); Eosinophils % (auto) 0.1 % (0.0-7.0); Hemoglobin 10.2 g/dL (12.2-16.2); Mean Corpuscular Hemoglobin 30.5 pg (28.0-32.0); Neutrophils # (auto) 4.6 10 ^3/uL (1.6-8.6); Nucleated Red Blood Cells % 0.7 %; Platelet Count (auto) 124 10^3/uL (140-450); Red Blood Cells 3.33 10^6/uL (4.0-5.20); White Blood Cell 5.7 10^3/uL (4.4-10.8)
[2025-02-19 11:53] LABS: Basophils % (auto) 0.3 % (0.0-2.0); Hematocrit 32.6 % (36.0-46.0); Lymphocytes # (auto) 0.6 10 ^3/uL (0.4-5.4); Mean Corpuscular Hgb Conc. 31.1 g/dL (32.0-36.0); Mean Corpuscular Volume 97.9 fL (80.0-100.0); Monocytes # (auto) 0.6 10 ^3/uL (0-1.3); Monocytes % (auto) 10.1 % (0.0-12.0); Neutrophils % (auto) 79.5 % (37.0-80.0)
[2025-02-19 12:00] LABS: Red Cell Distribution Width 24.2 % (11.8-14.3)
[2025-02-19 12:20] LABS: Anisocytosis Slight; Platelet Estimate Decreased
[2025-02-19] MEDS: FUROSEMIDE 40 MG/4 ML VIAL IV ONE (12:32)
[2025-02-19 12:34] VITALS: RESP 18; O2SAT 98
[2025-02-19] MEDS ORDERED: NITROGLYCERIN 0.4 MG SL TAB SL PRN (15:15)
--- NOTE | 2025-02-19 15:19 | DVHHPRES ---
History of Present Illness Resident Creating Document: NIKIA DAWN RESIDENT History of Present Illness This is a 69-year-old female with past medical history of hypertension, type 2 diabetes mellitus, atrial fibrillation with Eliquis, CHF, COPD on 2 L home oxygen presented to the ED with a chief complaint of bilateral leg swelling for last 1 month that prior to this admission. the patient states that bilateral leg swelling started 1 month ago getting worse and associated with shortness of breath and chest pain that prompted this visit. she also mentioned cough with productive greenish sputum for the same duration. According to the family She was admitted to [facility] 1-2 months ago for elevated potassium, anemia and elevated carbon dioxide and later diagnosed with arrhythmia. denies fever, chills, dizziness, palpitation, abdominal pain, nausea, vomiting, dysuria or any change in bowel and bladder habit. Cardiovascular: AFIB, CHF, HTN, hyperipidemia Pulmonary: COPD Past Medical History Hypertension, type 2 diabetes mellitus, atrial fibrillation with Eliquis, CHF, COPD on 2 L home oxygen Past Surgical History None Family History No significant family history of cardiac disease Past Social History Nonsmoker, nonalcoholic and never tried any drugs Lives with family Review of Systems Review of Systems Constitutional: No: Fever, Chills, Sweats, Weakness, Malaise, Other Eyes: No: Pain, Vision change, Conjunctivae inflammation, Eyelid inflammation, Other, Redness ENT: No: Ear pain, Ear discharge, Nose pain, Nose discharge, Nose congestion, M outh pain, Mouth swelling, Throat pain, Throat swelling, Other Respiratory: Shortness of breath, Cough, sputum, Dry,Wheezing, Hemoptysis, Pleuritic Pain, Sputum, Wheezing, Other Cardiovascular: No: Chest Pain, Palpitations, Orthopnea, Paroxysmal Noc. Dyspnea, Edema, Lt Headedness, Other Gastrointestinal: No: Nausea, Vomiting, Abdominal Pain, Diarrhea, Constipation, Melena, Hematochezia, Other Musculoskeletal: No: other, neck pain, shoulder pain, arm pain, back pain, hand pain, leg pain, foot pain Neurological:; No: Weakness, Numbness, Incoordination, Change in speech, Confusion, Seizures Allergies: Coded Allergies: NO KNOWN ALLERGIES (Unverified , 02/19/25) Medications Current Medications Medications Dose Ordered Sig/[facility] Route Start Time Stop Time Status Last Admin Dose Admin Nitroglycerin 0.4 mg Q5MINP PRN SL 02/19/25 15:15 UNV Morphine Sulfate 2 mg Q30M PRN IV 02/19/25 15:15 UNV Furosemide 40 mg BID IV 02/19/25 22:00 UNV Albuterol 2.5 mg Q6HR NEB 02/19/25 18:00 UNV Ipratropium [place] 0.5 mg Q6HR NEB 02/19/25 18:00 UNV Metoprolol Tartrate 25 mg BID PO 02/19/25 22:00 UNV Apixaban 5 mg BID PO 02/19/25 22:00 UNV Exam Vital Signs Vital Signs Date Time Temp Pulse Resp B/P (MAP) Pulse Ox O2 Delivery O2 Flow Rate FiO2 02/19/25 14:49 98.3 90 19 104/70 (81) 95 98.3 02/19/25 12:34 Room Air* 0 21 Exam Physical examination: General Appearance: Alert, Oriented X3, Cooperative, mild distress and on 3 L oxygen HEENT: Atraumatic, PERRLA, EOMI, Mucous membrane moist/pink Respiratory: Bilateral decreased breath sounds and basal crackles. Cardiovascular: Regular rate, Normal S1, Normal S2, No murmurs, no chest wall tenderness Abdominal: Normal bowel sounds, Soft, No tenderness, No hepatospenomegaly, No masses Extremities: Bilateral pedal edema 1+, No clubbing, No cyanosis, Normal pulses, No tenderness/swelling Skin: No rashes, No breakdown, No significant lesion Neuro: Normal speech, Strength at 5/5 X4 ext, Normal tone, Sensation intact, grossly intact cranial nerves. Psych/Mental Status: Mental status NL, Mood NL Labs/Xrays Labs Test 02/19/25 13:11 02/19/25 11:28 Range/Units Troponin I High Sensitivity 44 *H </=34 ng/L White Blood Count 5.7 4.4-10.8 10^3/uL Red Blood Count 3.33 L 4.0-5.20 10^6/uL Hemoglobin 10.2 L 12.2-16.2 g/dL Hematocrit 32.6 L 36.0-46.0 % Mean Corpuscular Volume 97.9 80.0-100.0 fL Mean Corpuscular Hemoglobin 30.5 28.0-32.0 pg Mean Corpuscular Hemoglobin Concent 31.1 L 32.0-36.0 g/dL Red Cell Distribution Width 24.2 H 11.8-14.3 % Platelet Count 124 L 140-450 10^3/uL Mean Platelet Volume 8.3 6.9-10.8 fL Neutrophils (%) (Auto) 79.5 37.0-80.0 % Lymphocytes (%) (Auto) 10.0 10.0-50.0 % Monocytes (%) (Auto) 10.1 0.0-12.0 % Eosinophils (%) (Auto) 0.1 0.0-7.0 % Basophils (%) (Auto) 0.3 0.0-2.0 % Neutrophils # (Auto) 4.6 1.6-8.6 10 ^3/uL Lymphocytes # (Auto) 0.6 0.4-5.4 10 ^3/uL Monocytes # (Auto) 0.6 0-1.3 10 ^3/uL Eosinophils # (Auto) 0 0-0.8 10 ^3/uL Basophils # (Auto) 0 0-0.2 10 ^3/uL Nucleated Red Blood Cells 0.7 % Platelet Estimate Decreased Anisocytosis (manual) Slight B-Type Natriuretic Peptide 551.22 0-100 pg/mL Assessment/Plan Assessment/Plan Assessment and plan: # Acute on chronic hypoxic hypercapnic respiratory failure likely due to acute exacerbation of chronic diastolic heart failure # Possible community acquired Gram-positive/Gram-negative pneumonia # NSTEMI likely type 2 secondary to above # Chronic COPD # History of obstructive sleep apnea - Patient is on 3 L oxygen with saturation 95% - CXR demonstrated pulmonary edema and or multifocal airspace disease. - BNP is elevated - med neb with albuterol and ipratropium q.6 hours - IV ceftriaxone 1 g daily and IV azithromycin 500 mg daily - IV Lasix 40 mg b.i.d. - Pending echo and sputum C/S - CPAP at night # Paroxysmal atrial fibrillation with secondary hypercoagulable state [id number] score 5 - Continue metoprolol 25 mg b.i.d. and Eliquis 5 mg b.i.d. # DVT prophylaxis - Lovenox 40 mg sc daily Goal of care discussed with the patient for more than 20 minutes full code Plan discussed with Dr. Jacobs Plan discussed with: Patient, Other My Orders Orders - NIKIA DAWN RESIDENT Procedure Category Date Status Time Admit ADMIT 02/19/25 Transmitted 15:10 Nitroglycerin PHA 02/19/25 Logged Sublingual (Ntrostat 15:15 Morphine Sulfate PHA 02/19/25 Logged Injection 15:15 Oxygen By Nasal RT 02/19/25 Transmitted Cannula 15:10 Stat Ekg For Chest [facility] 02/19/25 In Process Pain 15:10 Notify Md Of Changes [facility] 02/19/25 In Process From Base 15:10 Delinquent Account Clerk For [facility] 02/19/25 In Process 24 Hours 15:10 Emergency Dysrhythmia [facility] 02/19/25 In Process Protocol 15:10 Rhythm Strips Once [facility] 02/19/25 In Process Every Shift 15:10 Furosemide Injection PHA 02/19/25 Logged (Lasix Injection) 22:00 Albuterol Medneb PHA 02/19/25 Logged (Ventolin Medneb) 18:00 Ipratropium Medneb PHA 02/19/25 Logged (Atrovent Medneb) 18:00 Metoprolol Tartrate [facility] 02/19/25 Logged Tablet (Lopressor Ta 22:00 Apixaban (Eliquis) PHA 02/19/25 Logged 22:00 Methylprednisolone PHA 02/20/25 Verified Sod Succ (Solu Medrol 10:00 Date of Service: Feb 19, 2025 Billing Provider: ZIGGY JACOBS MD Common Visit Codes: [id number] INP/OBS CARE (HIGH) Secondary Visit Codes: [id number] CARE PLAN 30 MINUTES NIKIA DAWN RESIDENT Feb 19, 2025 15:19 ZIGGY JACOBS MD Feb 19, 2025 17:26
[2025-02-19 15:20] VITALS: BP 104/70; PULSE 90; RESP 19; TEMP 98.3; O2SAT 95
[2025-02-19 16:07] VITALS: O2SAT 95
[2025-02-19 17:23] LABS: Alanine Aminotransferase 16 U/L (7-40); Albumin 4.4 g/dL (3.2-4.8); Anion Gap 13 (5-15); Aspartate Aminotransferase 31 U/L (13-40); BUN/Creatinine Ratio 18.1 (10.0-20.0); Bilirubin, Total 0.9 mg/dL (0.2-1.0); Calcium 9.8 mg/dL (8.7-10.4); Carbon Dioxide 27 mmol/L (20-31); Glucose 89 mg/dL (74-106); Total Protein 7.9 g/dL (5.7-8.2)
[2025-02-19 17:29] LABS: Alkaline Phosphatase 137 U/L (46-116); Blood Urea Nitrogen 42 mg/dL (9-23); Chloride 89 mmol/L (98-107); Sodium 129 mmol/L (136-145)
[2025-02-19 17:31] LABS: Potassium 6.5 mmol/L (3.5-5.1)
[2025-02-19] MEDS: ALBUTEROL SULF 2.5 MG/0.5ML(0.5%) NEB SOLN NEB SCH (18:00)
--- NOTE | 2025-02-19 18:13 | ECG ---
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
--- NOTE | 2025-02-19 18:21 | DVH ---
Bilateral lower extremity venous duplex Clinical History: leg swelling Comparison: None Technique: Duplex Doppler evaluation of the deep venous systems of both lower extremities from the co mmon femoral veins to the popliteal veins including color Doppler and spectral/pulsed waveform analys is was performed. Findings: Evaluation is very limited due to presence of open ones and body habitus. The bilateral common femor al, greater saphenous junction and femoral veins could not be evaluated. The bilateral popliteal, tib ioperoneal trunks and posterior tibial veins are seen and are patent. The popliteal veins are compre ssible bilaterally. Moderate subcutaneous edema in the bilateral calves noted. No drainable fluid col lection is seen. Impression: 1. Suboptimal exam due to open wounds and body habitus. The bilateral Common femoral and femoral vei ns were not evaluated. 2. No evidence of DVT in the bilateral popliteal, tibioperoneal trunk posterior tibial veins.
[2025-02-19 18:25] VITALS: PULSE 103; RESP 16; O2SAT 94
[2025-02-19] MEDS: ALBUTEROL SULF 2.5 MG/0.5ML(0.5%) NEB SOLN NEB ONE (18:26)
[2025-02-19] MEDS: IPRATROPIUM BROM 0.5 MG/2.5ML INH SOL NEB SCH (18:29)
[2025-02-19] MEDS: CALCIUM GLUC 1,000mg/50ml-NS 50 ML IV ONE (18:49)
[2025-02-19 19:11] LABS: Urine Bacteria None Seen /hpf (None Seen)
[2025-02-19 19:27] LABS: Urine Blood 1+ /uL (Negative); Urine Clarity Turbid (Clear); Urine Color Yellow (Yellow); Urine Hyaline Cast MANY /lpf (0 - 2); Urine Protein, UAD 2+ (Negative); Urine Specific Gravity 1.019 (1.001-1.035); Urine Squamous Epithelial Cell FEW /hpf (<5); Urine Urobilinogen Normal (Negative); Urine WBC 14 /HPF (0-5)
[2025-02-19 19:30] VITALS: PULSE 120; RESP 20; O2SAT 95
[2025-02-19] MEDS: InsuLIN REG 1unit/0.01ml Soln (100units/ml) IV ONE (20:16)
[2025-02-19] MEDS: DEXTROSE (50%) 50ML SYRG IV ONE (20:17)
[2025-02-19] MEDS: SODIUM ZIRCONIUM CYCL 10 GM PAK PO ONE (20:34)
[2025-02-19] MEDS: FUROSEMIDE 20 MG/2 ML VIAL IV ONE (20:34)
[2025-02-19] MEDS: cefTRIAXone 1GM/50ML D5W 50 ML IV ONE (20:34)
[2025-02-19] MEDS: AZITHROMYCIN 500MG/ 250ML 250 ML IV ONE (20:51)
[2025-02-19] MEDS: MORPHINE SULFATE INJ 2 MG/ml SYRG IV PRN (21:24)
[2025-02-20] VITALS (12 sets, daily range): BP systolic 91–129; BP diastolic 44–90; PULSE 70–151; RESP 18–28; O2SAT 88–100
[2025-02-20] MEDS: METOPROLOL TARTRATE 25 MG TAB PO SCH (03:35)
[2025-02-20] MEDS: FUROSEMIDE 40 MG/4 ML VIAL IV SCH (03:36)
[2025-02-20 04:42] LABS: Hemoglobin 10.5 g/dL (12.2-16.2); Mean Corpuscular Hgb Conc. 29.9 g/dL (32.0-36.0); Nucleated Red Blood Cells % 0.7 %
[2025-02-20 04:43] LABS: Basophils # (auto) 0 10 ^3/uL (0-0.2); Basophils % (auto) 0.1 % (0.0-2.0); Eosinophils # (auto) 0 10 ^3/uL (0-0.8); Eosinophils % (auto) 0.1 % (0.0-7.0); Hematocrit 35.1 % (36.0-46.0); Lymphocytes # (auto) 0.4 10 ^3/uL (0.4-5.4); Lymphocytes % (auto) 5.1 % (10.0-50.0); Mean Corpuscular Hemoglobin 30.6 pg (28.0-32.0); Mean Corpuscular Volume 102.4 fL (80.0-100.0); Monocytes # (auto) 0.9 10 ^3/uL (0-1.3); Monocytes % (auto) 11.3 % (0.0-12.0); Neutrophils # (auto) 6.8 10 ^3/uL (1.6-8.6); Neutrophils % (auto) 83.4 % (37.0-80.0); Platelet Count (auto) 128 10^3/uL (140-450); Red Blood Cells 3.43 10^6/uL (4.0-5.20); White Blood Cell 8.2 10^3/uL (4.4-10.8)
[2025-02-20 04:45] LABS: Anion Gap 7 (5-15); Calcium 9.6 mg/dL (8.7-10.4); Carbon Dioxide 28 mmol/L (20-31)
[2025-02-20 04:50] LABS: BUN/Creatinine Ratio 16.7 (10.0-20.0); Glucose 97 mg/dL (74-106)
[2025-02-20 04:52] LABS: Blood Urea Nitrogen 43 mg/dL (9-23); Chloride 93 mmol/L (98-107); Sodium 128 mmol/L (136-145)
[2025-02-20 04:54] LABS: Potassium 5.7 mmol/L (3.5-5.1)
--- NOTE | 2025-02-20 05:18 | DVH ---
EXAM: XR Chest, 1 View CLINICAL INDICATION: Shortness of breath TECHNIQUE: Frontal view of the chest. COMPARISON: XY CHEST PORTABLE on DOS: 02/19/25 FINDINGS: LUNGS AND PLEURAL SPACES: See below. HEART: Cardiomegaly with moderate congestion. MEDIASTINUM: Unremarkable. Normal mediastinal contour. BONES/JOINTS: Unremarkable. No acute fracture. OTHER FINDINGS: . .. IMPRESSION: Cardiomegaly with moderate congestion.
[2025-02-20] MEDS: ALBUTEROL SULF 2.5 MG/0.5ML(0.5%) NEB SOLN NEB ONE (05:31)
[2025-02-20] MEDS: DEXTROSE (50%) 50ML SYRG IV ONE (05:37)
[2025-02-20] MEDS: CALCIUM GLUC 1,000mg/50ml-NS 50 ML IV ONE (05:37)
[2025-02-20] MEDS: InsuLIN REG 1unit/0.01ml Soln (100units/ml) IV ONE (05:42)
[2025-02-20] MEDS: SODIUM ZIRCONIUM CYCL 10 GM PAK PO ONE (05:49)
[2025-02-20] MEDS: FUROSEMIDE 20 MG/2 ML VIAL IV ONE (05:49)
[2025-02-20 08:07] LABS: Base Excess 0.8 mmol/L (-2.0-3.0)
[2025-02-20] MEDS: ETOMIDATE (2MG/ML) 20ML VIAL IV ONE (09:15)
[2025-02-20] MEDS: MIDAZOLAM DRIP 50 mg/50mL 50 ML IV SCH (09:15)
[2025-02-20] MEDS: MIDAZOLAM DRIP 50 mg/50mL 50 ML IV ONE (09:16)
[2025-02-20] MEDS: ROCURONIUM 10MG/ML 10ML VIAL IV ONE (09:16)
[2025-02-20 09:48] LABS: Base Excess 0.8 mmol/L (-2.0-3.0)
--- NOTE | 2025-02-20 09:56 | DVHNC2 ---
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 Physician Indication: Hypotension, CVP monitoring Room prepared for procedure: Yes Timber Buyer performed hand hygien: Yes Maximal sterile barrier precau: Mask/Eye shield, Sterile gown Skin Preparation: Chlorhexidine gluconate, Providine iodine Skin preparation completely dr: Yes Insertion site: Left, Internal jugular Central line catheter type: Eyv-uzreieau-oiz dialysis Number of lumens: 3 Antiseptic ointment applied to: Yes Post Assessment: Chest X-Ray Intubation Indication: Respiratory Insufficiency Prep: Preoxygenation Pretreated with: Analgesia, Sedation Medicated with: Vecuronium Intubation Approach: Orotracheal Intubation size: cm (8) Date of Service: Feb 20, 2025 Billing Provider: GURMEET RODRIGUEZ MD Common Visit Codes: 38036-[id number] INP/OBS CARE (HIGH) Secondary Visit Codes: 13278-[id number] [employer] Consultation Codes: 22776-[id number] CONSULT <45MIN Procedure Codes: 55120-[id number], 48652-DKXFBI NON-TUNNEL CV CATH GURMEET RODRIGUEZ MD Feb 20, 2025 09:56
[2025-02-20] MEDS ORDERED: CEFEPIME 1GM/ 50ML 50 ML IV SCH (10:00)
[2025-02-20] MEDS ORDERED: cefTRIAXone 1GM/50ML D5W 50 ML IV SCH (10:00)
[2025-02-20] MEDS ORDERED: methylPREDNISolone SOD SUCC 40 MG/ML VL IV SCH (10:00)
[2025-02-20] MEDS ORDERED: AZITHROMYCIN 500MG/ 250ML 250 ML IV SCH (10:00)
[2025-02-20] MEDS ORDERED: ENOXAPARIN SOD 40 MG/0.4 ML SYRINGE SC SCH (10:00)
[2025-02-20] MEDS: DOXYCYCLINE 100MG/100ML 100 ML IV SCH (10:20)
[2025-02-20] MEDS: APIXABAN 5 MG TAB PO SCH (10:20)
[2025-02-20] MEDS: FUROSEMIDE INJECTION 100 MG in SODIUM CHL 0.9% 100 ML IV SCH (10:20)
--- NOTE | 2025-02-20 10:31 | DVH ---
EXAM: XY CHEST XRAY 1 VIEW Indication: S/P INTUBATION Technique: Single frontal view of the chest was obtained Comparison: XY CHEST XRAY 1 VIEW on DOS: 02/20/25, XY CHEST PORTABLE on DOS: 02/19/25 FINDINGS: Lines and Tubes: Endotracheal tube projects 2 cm above the sejal. Left internal jugular central veno us catheter tip projects over the brachiocephalic vein. Lungs: Complete opacification of the left hemithorax. No pneumothorax. Cardiomediastinal contours: Obscured. Bones: No acute osseous abnormality. IMPRESSION: Complete opacification of the left hemithorax, worsened compared to prior exam.
[2025-02-20] MEDS: AMIODARONE BOLUS KIT 100 ML IV ONE (11:30)
[2025-02-20] MEDS: fentaNYL Drip 2500mCg/250mlNS 250 ML IV SCH (11:30)
[2025-02-20] MEDS: AMIODARONE 360mg/200mL PREMIX 200 ML IV ONE (11:44)
[2025-02-20] MEDS: methylPREDNISolone SOD SUCC 40 MG/ML VL IV ONE (11:56)
[2025-02-20 12:09] LABS: Base Excess 1.3 mmol/L (-2.0-3.0)
[2025-02-20] MEDS: CEFEPIME 2GM/50ML NS 50 ML IV SCH (13:41)
[2025-02-20] MEDS: NOREPINEPHRINE 8 MG/250ML KIT 250 ML IV SCH (14:00)
--- NOTE | 2025-02-20 16:50 | DVHPNRES ---
Progress Note Date Seen: Feb 20, 2025 Resident Creating Document: NIKIA DAWN RESIDENT Medical Necessity Reason Pt with a Central, PICC or Fol: Yes Subjective Review of Systems Patient was seen and examined on the bedside. The patient was intubated and on mechanical ventilation with tidal volume 500, PEEP 5 and FiO2 50%. Objective vital signs Vital Sign Date Time Temp Pulse Resp B/P (MAP) Pulse Ox O2 Delivery O2 Flow Rate FiO2 02/20/25 16:15 77 24 112/64 (80) 99 40 02/20/25 14:00 98.5 98.5 02/20/25 07:30 Bi-Pap+ 02/20/25 05:31 8 Total Intake and Output 02/19/25 02/19/25 02/20/25 15:00 23:00 07:00 Intake Total 100 ml Balance 100 ml medications Current Medications Medications Dose Ordered Sig/Adolfo Route Start Time Stop Time Status Last Admin Dose Admin Nitroglycerin 0.4 mg Q5MINP PRN SL 02/19/25 15:15 Morphine Sulfate 2 mg Q30M PRN IV 02/19/25 15:15 02/19/25 21:24 2 MG Albuterol 2.5 mg Q6HR NEB 02/19/25 18:00 02/20/25 12:30 2.5 MG Ipratropium [place] 0.5 mg Q6HR NEB 02/19/25 18:00 02/20/25 12:29 0.5 MG Metoprolol Tartrate 25 mg BID PO 02/19/25 22:00 Hold Apixaban 5 mg BID PO 02/19/25 22:00 02/20/25 10:20 5 MG Midazolam HCl 50 ml @ 1 mls/hr Q24H IV 02/20/25 08:30 02/20/25 16:00 1 MLS/HR Furosemide 100 mg/ Sodium Chloride 110 ml @ 4.4 mls/hr Q24H IV 02/20/25 09:45 02/20/25 10:20 4.4 MLS/HR Norepinephrine Bitartrate 250 ml @ 3.75 mls/hr Q24H IV 02/20/25 09:45 02/20/25 14:00 3.75 MLS/HR Doxycycline Hyclate 100 ml @ 50 mls/hr Q12H IV 02/20/25 10:00 02/20/25 10:20 50 MLS/HR Methylprednisolone Sodium Succinate 40 mg DAILY IV 02/21/25 10:00 Fentanyl Citrate 250 ml @ 2.5 mls/hr Q24H IV 02/20/25 11:00 02/20/25 11:30 2.5 MLS/HR Cefepime HCl 50 ml @ 12.5 mls/hr Q12H IV 02/20/25 11:30 02/20/25 13:41 12.5 MLS/HR Examination Physical examination: General Appearance: Intubated and on mechanical ventilation . HEENT: Atraumatic, PERRLA, EOMI, Mucous membrane moist/pink Respiratory: Lt sided absent breath sound and rt sided crackles and wheezing. Cardiovascular: Regular rate, Normal S1, Normal S2, No murmurs, no chest wall tenderness Abdominal: Normal bowel sounds, Soft, No tenderness, No hepatospenomegaly, No masses Extremities: Bilateral pedal edema+, No clubbing, No cyanosis, No edema, Normal pulses, No tenderness/swelling Skin: No rashes, No breakdown, No significant lesion laboratory and microbiology Laboratory Tests 02/20/25 04:18 Test 02/20/25 04:18 Range/Units Serum Glucose 97 74-106 mg/dL Labs and/or images reviewed: Labs reviewed by me, Image(s) reviewed by me Problem List/Assessment/Plan Problem List/Assessment/Plan Assessment and plan: # Acute on chronic hypoxic hypercapnic respiratory failure likely due to acute exacerbation of chronic diastolic heart failure # Possible community acquired Gram-positive/Gram-negative pneumonia # NSTEMI likely type 2 secondary to above # AN on CKD likely hemodynamically mediated/VMN # Chronic COPD # History of obstructive sleep apnea - Patient is on mechanical ventilation with tidal volume 500, PEEP and FIO2 50% - Patient is on IV Levophed as per protocol, fentanyl drip and Versed - CXR complete opacification of the left hemidiaphragm worsened from the previous exam - BNP is elevated - med neb with albuterol and ipratropium q.6 hours - IV cefepime 1 g b.i.d. and IV doxycycline 100 mg b.i.d. - IV Lasix drip at 4 microgram/hours - IV methylprednisolone 40 mg daily - Pending echo and sputum C/S - Pulmonology on board # Paroxysmal atrial fibrillation with secondary hypercoagulable state [id number] score 5 - Continue metoprolol 25 mg b.i.d. and Eliquis 5 mg b.i.d. # DVT prophylaxis - Patient is on Eloquis Goal of care discussed with the family for more than 20 minutes full code Plan discussed with Dr. Francisco Plan discussed with: Patient, Other My Orders My Orders Orders - NIKIA DAWN Procedure Category Date Status Time Chest Xray 1 View XY 02/20/25 Resulted 04:00 Basic Metabolic Panel LAB 02/20/25 Logged 00:10 Sodium Chl 0.9% PHA 02/20/25 In Process (So... W/Furosemide 09:45 Norepinephrine 8 PHA 02/20/25 In Process Mg/250ml Kit 09:45 Doxycycline PHA 02/20/25 In Process 100mg/100ml 10:00 Abg W/ Co-Ox RT 02/20/25 Logged 11:00 Mrsa Screen MINA 02/20/25 Uncollected 10:03 Methylprednisolone PHA 02/21/25 In Process Sod Succ (Solu Medrol 10:00 *Consult CONS 02/20/25 Transmitted / 14:29 Date of Service: Feb 20, 2025 Billing Provider: EZINA CARPIO MD Common Visit Codes: [id number] CARE 30-74 MIN NIKIA DAWN Feb 20, 2025 16:50 ZEINA CARPIO MD Feb 24, 2025 22:49
[2025-02-20] MEDS: AMIODARONE 360mg/200mL PREMIX 200 ML IV SCH (17:09)
[2025-02-20 17:53] LABS: Base Excess 1.6 mmol/L (-2.0-3.0)
--- NOTE | 2025-02-20 18:41 | DVHNC2 ---
Procedure - Bronchoscopy procedure note: Indications: Left lung collapse, Possible mucous plugging. Medicines: See [facility] notes. Complications: None Procedure: Patient medications and allergies reviewed. The risks and benefits of the procedure and the sedation options and risk were discussed with the patient's healthcare proxy. All questions were answered and informed consent was obtained. Patient identification and proposed procedure were verified prior to the procedure by the physician, and a nurse, and the respiratory therapist in ED room. The heart rate, respiratory rate, oxygen saturations, blood pressure, adequacy of pulmonary ventilation, and response to care were monitored throughout the procedure. The physical status of the patient was reassessed after the procedure. After obtaining informed consent, the bronchoscope was introduced through the endotracheal tube and advanced into the trachea bronchial tree of both lungs. The procedure was accomplished without difficulty. The patient tolerated the procedure well. Findings: The trachea is in normal caliber. The sejal is sharp. The tracheobronchial tree of the right lung was examined to at least the first subsegmental level. The bronchial mucosa and anatomy in the right lung are normal. There are no endobronchial lesions. There was scant whitish secretions from right main stem bronchus onward throughout R1-R10. Right middle lobe (RML) Bronchoalveolar lavage (BAL) obtained. RML BAL sent for gram stain and culture,and fungal culture. The left upper lobe, lingula, and left lower lobe were examined to at least the first subsegmental level. Bronchial mucosa and anatomy in the left upper lobe and lingula are normal. There were no endobronchial lesions. There was copious whitish secretions from left main stem bronchus onward throughout L1-L10. Mucous plugging removed from L1-L10. 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 There was no active bleeding at the completion of the procedure. Estimated blood loss: Less than 5 mL. Impression: Left lung collapse due to mucous plugging Mucous plugging from L1-L10 RML BAL performed Recommendation: Follow-up RML BAL results. Procedure codes: 39360, bronchoscopy, rigid and flexible, including fluoroscopic guidance, one performed; with bronchial endobronchial broncho-alveolar lavage, single or multiple sites RADHA BRANDT MD Feb 20, 2025 18:41
--- NOTE | 2025-02-20 18:43 | DVHINCON2 ---
Date of service: Feb 20, [address] Roa Reason for Consultation Assess for bronchoscopy and ventilator management. History of Present Illness 69-year-old woman history of hypertension, type 2 diabetes, atrial fibrillation on Eliquis, CHF, COPD, chronic hypoxic respiratory failure, dependence on supplemental oxygen presented to the ED with a chief complaint of bilateral lower extremity swelling for the last month. She was currently sedated, intubated on mechanical ventilator. Chest x-ray had complete opacification of the left lung field. Pulmonary consultation is called due to acute hypoxic respiratory failure and abnormal chest x-ray. Review of systems: Unable to obtain due to patient's critical condition. Past medical history: Hypertension, type 2 diabetes mellitus, atrial fibrillation, Eliquis, CHF, COPD, chronic hypoxic respiratory failure, dependence on supplemental oxygen Past surgical history: None mentioned in prior surgeries. Medications: Reviewed Allergies: No known drug allergies. Family history: No family history of premature CAD. No family history of lung disease. Social history: Nonsmoker. No alcohol or illicit drug use. Lives with family. Allergies: Coded Allergies: NO KNOWN ALLERGIES (Unverified , 02/19/25) Home Meds Reported Medications Spironolactone (Spironolactone) 25 Mg Tab, 1 TAB PO DAILY for 90 Days, #90 02/20/25 Estradiol Vaginal (Estradiol) 0.1 Mg/Gm Cre, 2 GRAMS VA TWICE WEEKLY for 70 Days, #42.5 02/20/25 Fluticasone Propionate (Nasal) (Fluticasone Propionate Na) 50 Mcg/Act Spr, 2 SPRAYS EACHNOSTRI DAILY for 30 Days, #16 02/20/25 Albuterol Sulfate (Albuterol Sulfate Hfa) 108 Mcg/Act Aer, 2 PUFF IN Q4HR PRN for 16 Days, #8.5 02/20/25 Benazepril Hcl (Benazepril Hcl) 20 Mg Tab, 1 TAB PO DAILY for 90 Days, #90 02/20/25 Senna (Senokot) 8.6 Mg Tab, 1 TAB PO QPM PRN for FOR CONSTIPATION for 30 Days, #30 02/20/25 Ferrous Sulfate (Ferosul) 325 Mg Tab, 1 TAB PO DAILY for 30 Days, #30 02/20/25 B-Complex W/ C & Folic Acid (Maryana-Jennifer Rx) Tab, 1 TAB PO DAILY for 30 Days, #30 02/20/25 Apixaban Base (ELIQUIS) 5 Mg Tab, 1 TAB PO BID for 30 Days, #60 02/20/25 Pantoprazole Sodium Sesquihydr (Protonix) 40 Mg Tab, 1 TAB PO DAILY for 30 Days, #30 02/20/25 Furosemide (Furosemide) 40 Mg Tab, 1 TAB PO BID for 30 Days, #60 02/20/25 Metoprolol Tartrate (LOPRESSOR TABLET) 50 Mg Tb, 1 TAB PO BID for 30 Days, #60 02/20/25 Diclofenac Sodium (Topical) (Voltaren Arthritis Pain) 1 % Gel, 2 GRAMS TOP QID PRN for 25 Days, #200 02/20/25 Hydrocodone-Acetaminophen (Hydrocodone Bitartrate/AC 10-325 mg) 1 Tab Tab, 1 TAB PO TID PRN for 30 Days, #90 02/20/25 Aspirin (Aspirin Low Dose) 81 Mg Chw, 1 TAB PO DAILY for 30 Days, #30 02/20/25 Cholecalciferol (VITAMIN D3) 2,000 Unit Tab, 1 TAB PO DAILY for 90 Days, #90 02/20/25 Current Medications Current Medications Medications (Trade) Dose Ordered Sig/Adolfo Route PRN Reason Start Time Stop Time Status Last Admin Furosemide (Lasix Injection) 40 mg BID IV 02/19/25 22:00 02/20/25 09:49 DC Metoprolol Tartrate (Lopressor Tablet) 25 mg BID PO 02/19/25 22:00 Hold Apixaban (Eliquis) 5 mg BID PO 02/19/25 22:00 02/20/25 10:20 Methylprednisolone Sodium Succinate (Solu Medrol) 40 mg DAILY IV 02/20/25 10:00 02/19/25 15:25 DC Ceftriaxone Sodium 50 ml @ 100 mls/hr DAILY IV 02/20/25 10:00 02/20/25 09:49 DC Azithromycin 250 ml @ 125 mls/hr DAILY IV 02/20/25 10:00 02/20/25 09:49 DC Enoxaparin Sodium (Lovenox) 40 mg DAILY SC 02/20/25 10:00 02/20/25 07:36 DC Midazolam HCl 50 ml @ 1 mls/hr Q24H IV 02/20/25 08:30 02/20/25 16:00 Furosemide 100 mg/ Sodium Chloride 110 ml @ 4.4 mls/hr Q24H IV 02/20/25 09:45 02/20/25 10:20 Norepinephrine Bitartrate 250 ml @ 3.75 mls/hr Q24H IV 02/20/25 09:45 02/20/25 14:00 Cefepime HCl 50 ml @ 12.5 mls/hr DAILY IV 02/20/25 10:00 02/20/25 11:00 DC Doxycycline Hyclate 100 ml @ 50 mls/hr Q12H IV 02/20/25 10:00 02/20/25 10:20 Methylprednisolone Sodium Succinate (Solu Medrol) 40 mg DAILY IV 02/21/25 10:00 Cefepime HCl 50 ml @ 12.5 mls/hr DAILY IV 02/21/25 10:00 02/20/25 11:04 DC Fentanyl Citrate 250 ml @ 2.5 mls/hr Q24H IV 02/20/25 11:00 02/20/25 11:30 Cefepime HCl 50 ml @ 12.5 mls/hr Q12H IV 02/20/25 11:30 02/20/25 13:41 Vital Signs Vital Signs Date Time Temp Pulse Resp B/P (MAP) Pulse Ox O2 Delivery O2 Flow Rate FiO2 02/20/25 18:00 109/59 02/20/25 18:00 77 23 93 02/20/25 16:15 40 02/20/25 16:00 98.4 98.4 02/20/25 07:30 Bi-Pap+ 02/20/25 05:31 8 Physical Exam Gen.: Patient lying in bed in medical ICU. Sedated, intubated on mechanical ventilator. Head: Normocephalic, atraumatic. Eyes: PERRLA. Ears: Normal external anatomy. Throat: Endotracheal tube and orogastric tube in place. Neck: Supple, trachea midline. Chest: Transmitted breath sounds bilaterally. Decreased air entry bilaterally. No wheezing. Bibasilar crackles. Cardio vascular: Positive S1, positive S2. Regular rate and rhythm. Abdomen: Positive bowel sounds in all 4 quadrants. Soft, nontender, nondistended. : Colin in place. Normal external genitalia. Rectal: Deferred Skin: Warm, dry. Intact. Extremities: 2+ radial pulses bilaterally. No lower extremity edema. Neuro: Sedated. Labs/Diagnostic Data Labs Test 02/20/25 17:49 02/20/25 11:40 02/20/25 04:18 02/19/25 19:01 Range/Units Blood Gas Specimen Type Arterial Blood Gas Sample Site Left radial Blood Gas Patient Temperature 37.0 Arterial Blood Date Drawn [id number] Arterial Blood pH 7.379 7.350-7.450 Arterial Blood Partial Pressure CO2 47.0 H 32.0-45.0 mmHg Arterial Blood Partial Pressure O2 55.6 L 83.0-108.0 mmHg Arterial Blood HCO3 27.1 21.0-28.0 mmol/L Arterial Blood Oxygen Saturation 89.0 L 94.0-98.0 % Arterial Blood Base Excess 1.6 -2.0-3.0 mmol/L Arterial Blood Oxyhemoglobin 87.9 L 94.0-98.0 % Arterial Blood Carboxyhemoglobin 0.5 0.5-1.5 % Arterial Blood Methemoglobin 0.7 0.0-1.5 % Rodrigo Test Modified Blood Gas Total Hemoglobin 10.20 L 12.0-16.0 g/dL Blood Gas Set Respiration Rate 28.0 Blood Gas Modality Vent - ac FiO2 % 30.0 Blood Gas Tidal Volume 450.0 Blood Gas PEEP or CPAP 5.0 Blood Gas Critical Value Read Back Yes Blood Gas Notified Whom jaskaran Francisco md Blood Gas Notified Time [id number] Blood Gas Notified By Sakina maier rrt White Blood Count 8.2 # 4.4-10.8 10^3/uL Red Blood Count 3.43 L 4.0-5.20 10^6/uL Hemoglobin 10.5 L 12.2-16.2 g/dL Hematocrit 35.1 L 36.0-46.0 % Mean Corpuscular Volume 102.4 #H 80.0-100.0 fL Mean Corpuscular Hemoglobin 30.6 28.0-32.0 pg Mean Corpuscular Hemoglobin Concent 29.9 L 32.0-36.0 g/dL Red Cell Distribution Width 24.0 H 11.8-14.3 % Platelet Count 128 L 140-450 10^3/uL Mean Platelet Volume 8.1 6.9-10.8 fL Neutrophils (%) (Auto) 83.4 H 37.0-80.0 % Lymphocytes (%) (Auto) 5.1 L 10.0-50.0 % Monocytes (%) (Auto) 11.3 0.0-12.0 % Eosinophils (%) (Auto) 0.1 0.0-7.0 % Basophils (%) (Auto) 0.1 0.0-2.0 % Neutrophils # (Auto) 6.8 1.6-8.6 10 ^3/uL Lymphocytes # (Auto) 0.4 0.4-5.4 10 ^3/uL Monocytes # (Auto) 0.9 0-1.3 10 ^3/uL Eosinophils # (Auto) 0 0-0.8 10 ^3/uL Basophils # (Auto) 0 0-0.2 10 ^3/uL Nucleated Red Blood Cells 0.7 % Sodium Level 128 L 136-145 mmol/L Potassium Level 5.7 *H 3.5-5.1 mmol/L Chloride Level 93 L 98-107 mmol/L Carbon Dioxide Level 28 20-31 mmol/L Anion Gap 7 5-15 Blood Urea Nitrogen 43 H 9-23 mg/dL Creatinine 2.57 H 0.550-1.02 mg/dL Glomerular Filtration Rate Calc 20 >90 mL/min BUN/Creatinine Ratio 16.7 10.0-20.0 Serum Glucose 97 74-106 mg/dL Calcium Level 9.6 8.7-10.4 mg/dL Urine Color Yellow Yellow Urine Clarity Turbid H Clear Urine pH 5.0 5.0-9.0 Urine Specific [place] 1.019 1.001-1.035 Urine Protein 2+ H Negative Urine Ketones Negative Negative Urine Blood 1+ H Negative /uL Urine Nitrite Negative Negative Urine Bilirubin Negative Negative Urine Urobilinogen Normal Negative mg/dL Urine Leukocyte Esterase Trace Negative /uL Urine RBC 6 0 - 4 /hpf Urine Microscopic WBC 14 H 0-5 /HPF Urine Squamous Epithelial Cells Few <5 /hpf Urine Bacteria None seen None Seen /hpf Urine Hyaline Casts Many 0 - 2 /lpf Urine Glucose Normal Normal mg/dL Test 02/19/25 15:21 02/19/25 13:11 02/19/25 11:28 Range/Units Troponin I High Sensitivity 48 *H </=34 ng/L Total Bilirubin 0.9 0.2-1.0 mg/dL Aspartate Amino Transferase (AST) 31 13-40 U/L Alanine Aminotransferase (ALT) 16 7-40 U/L Alkaline Phosphatase 137 H 46-116 U/L Total Protein 7.9 5.7-8.2 g/dL Albumin 4.4 3.2-4.8 g/dL Platelet Estimate Decreased Anisocytosis (manual) Slight B-Type Natriuretic Peptide 551.22 0-100 pg/mL Thyroid Stimulating Hormone (TSH) 6.93 H 0.55-4.78 uIU/mL Assessment Impression: Acute on chronic hypoxic respiratory failure Acute on chronic hypercarbic respiratory failure On mechanical ventilator Tracheobronchomalacia NSTEMI Pneumonia Gram-positive/Gram-negative pneumonia COPD Obstructive sleep apnea Morbid obesity, BMI 63.4 Paroxysmal atrial fibrillation Plan: s/p intubation on mechanical ventilator CXR image and report reviewed. ABG reviewed. Acidemia, Co2 65.7 Placed on RR 28, Vt 450 mL, Peep 5, FIo2 30% Titrate FIO2 to keep O2 saturation 88-94%. VAP bundle Daily ABG and CXR while intubated. Sedate for ventilatory synchrony Bronchodilators IV steroids On pressors for hemodynamic support. Titrate to keep MAP above 65 mmHg/SBP above 90 mmHg. Continue antibiotics. F/u cultures. F/u RML BAL Amio drip F/u Cardio recs On Lasix drip for diuresis Monitor renal function due to Acute kidney injury. Monitor electrolytes. Supplement as necessary. Monitor ins/outs Nutritional support. Accucheks, ISS. DVT prophylaxis- on Eliquis. Condition: Critical Prognosis: Poor given multiple comorbidities. Rest of plan per hospitalist and other consultants. A total of 40 minutes of critical care time was spent reviewing the patient record, examining the patient, making a diagnostic and therapeutic plan, discussing this plan with the medical personnel, following up on diagnostic studies and following the patient for clinical stability excluding any and all procedures. At least 50% of this time was spent in direct, [id number] contact. Thank you Dr. Roa for allowing me to participate in this patient's care. Further recommendations will depend on patient's clinical course. Please do not hesitate to contact me if you have any questions or concerns. This medical document was created using an electronic medical record system with [employer] dictation system. Although this document has been carefully reviewed, there may still be some phonetic and typographical errors. These areas are purely typographical due to imperfections of the software programs, and do not reflect any compromise in the patient's medical care. Plan discussed with: Spouse, Other (RN Theo, RT, MD) RADHA BRANDT MD Feb 20, 2025 18:43
--- NOTE | 2025-02-20 18:49 | DVHSR ---
APPROVED REPORT EXAM: LIMITED Two-dimensional and M-mode echocardiogram with Doppler and color Doppler. Blood Pressure: 100/64 mmHg INDICATION SOB RISK FACTORS Obesity: Height: 5' 5", Weight: 380 DIMENSIONS LVDd5.1 (3.8-5.7cm)LA (2D)5.6 (1.9-4.0cm)Aortic Root3.6 (2.0-3.7cm) LVDs3.6 (2.5-4.0cm)LA (MM) (1.9-4.0cm)Aortic Cusp Exc1.5 (1.5-2.0cm) EF (%) 55.0 (55-70%)Rt. Atrium6.5 (1.9-4.0cm)Asc. Aorta cm IVSd1.2 (0.7-1.1cm)RV (D) (1.8-2.4cm) PWd1.3 (0.7-1.1cm) Mitral Valve MitralMitral Stenosis E wave1.20m/sMV Mean GR.mmHg E/A ratio0.02D MVAcm2 Aortic Valve Aortic ValveAortic Stenosis V10.80m/Mena Mean GR.4mmHg V21.20m/Mena Peak GR.6mmHg LVOT Diameter2.1 (1.8-2.4cm)Doppler AVA2.31cm2 Pulmonic Valve V20.90m/s Tricuspid Valve TR Velocity3.30m/s [id number] Other Information Quality : Technically LimitedRhythm : Atrial Fibrillation Technically limited study due to body habitus, body habitus, on vent and patient moving. Conclusion Technically good study. Underlying atrial fibrillation. Right ventricular and left atrial enlargement. Aortic sclerosis. Mild mitral annular calcification. Left ventricular function appears preserved. EF of about 50-55% with moderately decreased RV functio n. Doming of the interventricular septum in systole highly suggestive of pulmonary hypertension. Ri ght ventricular pressure overload. Mild mitral regurgitation. [id number] tricuspid regurgitation with moderate pulmonic insuffi ciency. Noted pulmonary hypertension. There is a moderate pericardial effusion. It does not appear to be hemodynamically significant were impinging upon filling of the RV or RA. It appears to be mostly inferiorly and does not appear to be accessible subcostally. No masses or vegetations discernible.
--- NOTE | 2025-02-20 19:21 | DVH ---
EXAM: XR Chest, 1 View CLINICAL INDICATION: s/p bronch TECHNIQUE: Frontal view of the chest. COMPARISON: XY CHEST XRAY 1 VIEW on DOS: 02/20/25, XY CHEST XRAY 1 VIEW on DOS: 02/20/25, XY CHEST PO RTABLE on DOS: 02/19/25 FINDINGS: LUNGS AND PLEURAL SPACES: See below. HEART: Cardiomegaly with pulmonary congestion and edema. Superimposed pneumonia cannot be excluded. MEDIASTINUM: Unremarkable. Normal mediastinal contour. BONES/JOINTS: Unremarkable. No acute fracture. TUBES, LINES AND DEVICES: The endotracheal tube (ETT) is in satisfactory position. Left internal j ugular central venous catheter tip in the superior vena cava. Enteric tube tip in the stomach. OTHER FINDINGS: . IMPRESSION: Cardiomegaly with pulmonary congestion and edema. Superimposed pneumonia cannot be excluded.
[2025-02-20 22:13] LABS: Basophils # (auto) 0 10 ^3/uL (0-0.2); Basophils % (auto) 0.1 % (0.0-2.0); Eosinophils # (auto) 0 10 ^3/uL (0-0.8); Hematocrit 28.5 % (36.0-46.0); Lymphocytes # (auto) 0.2 10 ^3/uL (0.4-5.4); Lymphocytes % (auto) 4.8 % (10.0-50.0); Mean Corpuscular Hemoglobin 30.4 pg (28.0-32.0); Mean Corpuscular Hgb Conc. 31.5 g/dL (32.0-36.0); Mean Corpuscular Volume 96.7 fL (80.0-100.0); Monocytes # (auto) 0.1 10 ^3/uL (0-1.3); Neutrophils # (auto) 4.3 10 ^3/uL (1.6-8.6); Neutrophils % (auto) 93.1 % (37.0-80.0); Nucleated Red Blood Cells % 0.3 %; Platelet Count (auto) 103 10^3/uL (140-450); Red Blood Cells 2.95 10^6/uL (4.0-5.20); White Blood Cell 4.7 10^3/uL (4.4-10.8)
[2025-02-20 22:15] LABS: Red Cell Distribution Width 23.2 % (11.8-14.3)
[2025-02-20 22:17] LABS: Anion Gap 11 (5-15); Carbon Dioxide 28 mmol/L (20-31)
[2025-02-20 22:18] LABS: Calcium 9.1 mg/dL (8.7-10.4)
[2025-02-20 22:22] LABS: BUN/Creatinine Ratio 18.6 (10.0-20.0)
[2025-02-20 22:23] LABS: Base Excess 0.4 mmol/L (-2.0-3.0)
[2025-02-20 22:25] LABS: Blood Urea Nitrogen 45 mg/dL (9-23); Chloride 92 mmol/L (98-107); Glucose 114 mg/dL (74-106); Potassium 5.5 mmol/L (3.5-5.1); Sodium 131 mmol/L (136-145)
[2025-02-21] VITALS (81 sets, daily range): BP systolic 97–137; BP diastolic 38–73; PULSE 64–163; RESP 19–34; TEMP 97.7–98.4; O2SAT 93–100
[2025-02-21] MEDS: ALBUTEROL SULF 2.5 MG/0.5ML(0.5%) NEB SOLN NEB ONE
[2025-02-21] MEDS: CALCIUM GLUC 1,000mg/50ml-NS 50 ML IV ONE (00:02)
--- NOTE | 2025-02-21 05:40 | DVH ---
EXAM: XR Chest, 1 View CLINICAL INDICATION: Patient is intubated, pneumonia TECHNIQUE: Frontal view of the chest. COMPARISON: XY CHEST XRAY 1 VIEW on DOS: 02/20/25, XY CHEST XRAY 1 VIEW on DOS: 02/20/25, XY CHEST XR AY 1 VIEW on DOS: 02/20/25, XY CHEST PORTABLE on DOS: 02/19/25 FINDINGS: LUNGS AND PLEURAL SPACES: See below. HEART: Cardiomegaly with pulmonary congestion and edema. Superimposed pneumonia cannot be excluded. MEDIASTINUM: Unremarkable. Normal mediastinal contour. BONES/JOINTS: Unremarkable. No acute fracture. TUBES, LINES AND DEVICES: Stable tubes and lines. OTHER FINDINGS: . .. IMPRESSION: 1. Cardiomegaly with pulmonary congestion and edema. Superimposed pneumonia cannot be excluded. 2. No significant change from the prior exam.
[2025-02-21 06:29] LABS: Basophils # (auto) 0 10 ^3/uL (0-0.2); Basophils % (auto) 0.1 % (0.0-2.0); Eosinophils # (auto) 0 10 ^3/uL (0-0.8); Hematocrit 27.8 % (36.0-46.0); Hemoglobin 8.8 g/dL (12.2-16.2); Lymphocytes # (auto) 0.2 10 ^3/uL (0.4-5.4); Lymphocytes % (auto) 5.9 % (10.0-50.0); Mean Corpuscular Hemoglobin 30.6 pg (28.0-32.0); Mean Corpuscular Hgb Conc. 31.7 g/dL (32.0-36.0); Mean Corpuscular Volume 96.5 fL (80.0-100.0); Monocytes # (auto) 0.1 10 ^3/uL (0-1.3); Monocytes % (auto) 3.2 % (0.0-12.0); Neutrophils # (auto) 3.4 10 ^3/uL (1.6-8.6); Neutrophils % (auto) 90.8 % (37.0-80.0); Nucleated Red Blood Cells % 0.3 %; Platelet Count (auto) 105 10^3/uL (140-450); Red Blood Cells 2.88 10^6/uL (4.0-5.20); Red Cell Distribution Width 23.5 % (11.8-14.3); White Blood Cell 3.8 10^3/uL (4.4-10.8)
[2025-02-21 06:39] LABS: Alanine Aminotransferase 12 U/L (7-40); Alkaline Phosphatase 100 U/L (46-116); Anion Gap 9 (5-15); BUN/Creatinine Ratio 22.1 (10.0-20.0); Calcium 9.3 mg/dL (8.7-10.4); Carbon Dioxide 29 mmol/L (20-31)
[2025-02-21 06:40] LABS: Albumin 3.2 g/dL (3.2-4.8); Aspartate Aminotransferase 19 U/L (13-40); Bilirubin, Total 0.6 mg/dL (0.2-1.0); Blood Urea Nitrogen 50 mg/dL (9-23); Chloride 93 mmol/L (98-107); Glucose 122 mg/dL (74-106); Potassium 5.3 mmol/L (3.5-5.1); Sodium 131 mmol/L (136-145)
[2025-02-21] MEDS ORDERED: CEFEPIME 2GM/50ML NS 50 ML IV SCH (10:00)
[2025-02-21] MEDS ORDERED: SODIUM ZIRCONIUM CYCL 10 GM PAK PO SCH (10:00)
[2025-02-21] MEDS: methylPREDNISolone SOD SUCC 40 MG/ML VL IV SCH (10:13)
[2025-02-21] MEDS: FUROSEMIDE INJECTION 100 MG in SODIUM CHL 0.9% 100 ML IV SCH (11:27)
[2025-02-21] MEDS: SODIUM ZIRCONIUM CYCL 10 GM PAK ONE (11:48)
[2025-02-21] MEDS: SODIUM ZIRCONIUM CYCL 10 GM PAK PO SCH (12:17)
[2025-02-21] MEDS: Glucerna 1.2 Cal 1Liter BOTTLE GT SCH (20:39)
--- NOTE | 2025-02-21 20:55 | DVHPNRES ---
Progress Note Date Seen: Feb 21, 2025 Resident Creating Document: NIKIA DAWN RESIDENT Medical Necessity Reason Pt with a Central, PICC or Fol: Yes Subjective Review of Systems Patient was seen and examined on the bedside. The patient was intubated and on mechanical ventilation with tidal volume 450, PEEP 8 and FiO2 40% and RR 28. Objective vital signs Vital Sign Date Time Temp Pulse Resp B/P (MAP) Pulse Ox O2 Delivery O2 Flow Rate FiO2 02/21/25 20:19 94 28 117/61 (79) 97 40 02/21/25 19:30 98.1 98.1 02/21/25 19:30 Mechanical Ventilator+ 02/20/25 05:31 8 Total Intake and Output 02/20/25 02/20/25 02/21/25 15:00 23:00 07:00 Intake Total 193.32 ml 354.52 ml 432.32 ml Output Total 500 ml 1500 ml Balance 193.32 ml -145.48 ml -1067.68 ml medications Current Medications Medications Dose Ordered Sig/Adolfo Route Start Time Stop Time Status Last Admin Dose Admin Nitroglycerin 0.4 mg Q5MINP PRN SL 02/19/25 15:15 Morphine Sulfate 2 mg Q30M PRN IV 02/19/25 15:15 02/19/25 21:24 2 MG Albuterol 2.5 mg Q6HR NEB 02/19/25 18:00 02/21/25 19:44 2.5 MG Ipratropium [place] 0.5 mg Q6HR NEB 02/19/25 18:00 02/21/25 19:44 0.5 MG Metoprolol Tartrate 25 mg BID PO 02/19/25 22:00 Hold Apixaban 5 mg BID PO 02/19/25 22:00 02/21/25 10:13 5 MG Midazolam HCl 50 ml @ 1 mls/hr Q24H IV 02/20/25 08:30 02/21/25 09:08 13 MLS/HR Norepinephrine Bitartrate 250 ml @ 3.75 mls/hr Q24H IV 02/20/25 09:45 02/20/25 14:00 3.75 MLS/HR Doxycycline Hyclate 100 ml @ 50 mls/hr Q12H IV 02/20/25 10:00 02/21/25 10:11 50 MLS/HR Methylprednisolone Sodium Succinate 40 mg DAILY IV 02/21/25 10:00 02/21/25 10:13 40 MG Fentanyl Citrate 250 ml @ 2.5 mls/hr Q24H IV 02/20/25 11:00 02/20/25 11:30 2.5 MLS/HR Cefepime HCl 50 ml @ 12.5 mls/hr Q12H IV 02/20/25 11:30 02/21/25 12:17 12.5 MLS/HR Enteral Nutritional Formula 1,000 ml 30ML/HR GT 02/21/25 10:15 02/21/25 20:39 1,000 ML Furosemide 100 mg/ Sodium Chloride 110 ml @ 6.6 mls/hr [id number] IV 02/21/25 11:00 02/21/25 11:27 6.6 MLS/HR Zirconium Oxide 10 gm BID PO 02/21/25 11:00 02/21/25 12:17 10 GM Examination Physical examination: General Appearance: Intubated and on mechanical ventilation . HEENT: Atraumatic, PERRLA, EOMI, Mucous membrane moist/pink Respiratory: Lt sided absent breath sound and rt sided crackles and wheezing. Cardiovascular: Regular rate, Normal S1, Normal S2, No murmurs, no chest wall tenderness Abdominal: Normal bowel sounds, Soft, No tenderness, No hepatospenomegaly, No masses Extremities: Bilateral pedal edema+, No clubbing, No cyanosis, No edema, Normal pulses, No tenderness/swelling Skin: No rashes, No breakdown, No significant lesion laboratory and microbiology Laboratory Tests 02/21/25 05:50 Test 02/21/25 05:50 Range/Units Serum Glucose 122 H 74-106 mg/dL Microbiology Date/Time Source Procedure Growth Status 02/20/25 18:28 Other Pending Resulted 02/20/25 18:28 Other Pending Resulted 02/20/25 18:28 Other Pending Resulted 02/20/25 18:28 Other Pending Resulted 02/20/25 18:28 Other - Final See Separate Report... Resulted 02/20/25 18:28 Bronchial Washings Gram Stain - Final Resulted 02/20/25 18:28 Bronchial Washings Respiratory Culture - Preliminary Resulted Labs and/or images reviewed: Labs reviewed by me, Image(s) reviewed by me Problem List/Assessment/Plan Problem List/Assessment/Plan Assessment and plan: # Acute on chronic hypoxic hypercapnic respiratory failure likely due to acute exacerbation of chronic diastolic heart failure # Possible community acquired Gram-positive/Gram-negative pneumonia # NSTEMI likely type 2 secondary to above # AN on CKD likely hemodynamically mediated/VMN # Chronic COPD # History of obstructive sleep apnea - Patient is on mechanical ventilation with tidal volume 500, PEEP and FIO2 50% - Patient is on IV Levophed as per protocol, fentanyl drip and Versed - CXR complete opacification of the left hemidiaphragm worsened from the previous exam - BNP is elevated - med neb with albuterol and ipratropium q.6 hours - IV cefepime 1 g b.i.d. and IV doxycycline 100 mg b.i.d. - IV Lasix drip at 6 microgram/hours - IV methylprednisolone 40 mg daily - Pending echo and sputum C/S - Pulmonology on board - the patient underwent bronchoscopy yesterday and the BAL sent for cytology and culture - CPAP trial tomorrow AM # Paroxysmal atrial fibrillation with secondary hypercoagulable state [id number] score 5 - Continue metoprolol 25 mg b.i.d. and Eliquis 5 mg b.i.d. # DVT prophylaxis - Patient is on Eloquis Goal of care discussed with the family for more than 20 minutes full code Plan discussed with Dr. Francisco Plan discussed with: Patient, Other My Orders My Orders Orders - NIKIA DAWN RESIDENT Procedure Category Date Status Time Blood Culture MINA 02/21/25 In Process 11:23 Urine Bacterial MINA 02/21/25 In Process Culture 09:51 Insert Midline ORDERS 02/21/25 Transmitted 10:03 Sodium Chl 0.9% PHA 02/21/25 In Process (So... W/Furosemide 11:00 Sodium Zirconium PHA 02/21/25 In Process Cyclosilicate 11:00 * Wound Consult CONS 02/21/25 Transmitted * Dietary Consult CONS 02/21/25 Transmitted 15:03 * Canvas Cutter Machine CONS 02/21/25 Transmitted Consult Complete Blood Count LAB 02/22/25 Verified 04:00 Basic Metabolic Panel LAB 02/22/25 Verified 04:00 Cpap/Sed Vacation Med ORDERS 02/21/25 Transmitted Weaning 19:12 Cpap Trial For Am ORDERS 02/21/25 Transmitted 19:12 Potassium LAB 02/21/25 Logged 20:47 Date of Service: Feb 21, 2025 Billing Provider: ZEINA CARPIO MD Common Visit Codes: [id number] CARE 30-74 MIN NIKIA DAWN RESIDENT Feb 21, 2025 20:55 ZEINA CARPIO MD Feb 24, 2025 22:50
--- NOTE | 2025-02-21 22:37 | DVHPN2 ---
Progress Note - Dictate Date Seen: Feb 21, 2025 Medical Necessity Reason Pt with a Central, PICC or Fol: Yes The following are medically ne: Serrano Catheter Reason for serrano catheter: Strict I&O Subjective Patient seen and examined at bedside. Intubated on mechanical ventilator. Overnight events reviewed vital signs Vital Sign Date Time Temp Pulse Resp B/P (MAP) Pulse Ox O2 Delivery O2 Flow Rate FiO2 02/21/25 22:30 92 28 103/60 (74) 95 02/21/25 22:00 Mechanical Ventilator+ 40 40 02/21/25 20:00 98.4 98.4 02/20/25 05:31 8 Total Intake and Output 02/20/25 02/20/25 02/21/25 15:00 23:00 07:00 Intake Total 193.32 ml 354.52 ml 432.32 ml Output Total 500 ml 1500 ml Balance 193.32 ml -145.48 ml -1067.68 ml medications Current Medications Medications Dose Ordered Sig/Adolfo Route Start Time Stop Time Status Last Admin Dose Admin Nitroglycerin 0.4 mg Q5MINP PRN SL 02/19/25 15:15 Morphine Sulfate 2 mg Q30M PRN IV 02/19/25 15:15 02/19/25 21:24 2 MG Albuterol 2.5 mg Q6HR NEB 02/19/25 18:00 02/21/25 19:44 2.5 MG Ipratropium [place] 0.5 mg Q6HR NEB 02/19/25 18:00 02/21/25 19:44 0.5 MG Metoprolol Tartrate 25 mg BID PO 02/19/25 22:00 Hold Apixaban 5 mg BID PO 02/19/25 22:00 02/21/25 21:59 5 MG Midazolam HCl 50 ml @ 1 mls/hr Q24H IV 02/20/25 08:30 02/21/25 09:08 13 MLS/HR Norepinephrine Bitartrate 250 ml @ 3.75 mls/hr Q24H IV 02/20/25 09:45 02/20/25 14:00 3.75 MLS/HR Doxycycline Hyclate 100 ml @ 50 mls/hr Q12H IV 02/20/25 10:00 02/21/25 21:59 50 MLS/HR Methylprednisolone Sodium Succinate 40 mg DAILY IV 02/21/25 10:00 02/21/25 10:13 40 MG Fentanyl Citrate 250 ml @ 2.5 mls/hr Q24H IV 02/20/25 11:00 02/20/25 11:30 2.5 MLS/HR Cefepime HCl 50 ml @ 12.5 mls/hr Q12H IV 02/20/25 11:30 02/21/25 12:17 12.5 MLS/HR Enteral Nutritional Formula 1,000 ml 30ML/HR GT 02/21/25 10:15 02/21/25 20:39 1,000 ML Furosemide 100 mg/ Sodium Chloride 110 ml @ 6.6 mls/hr [id number] IV 02/21/25 11:00 02/21/25 21:59 6.6 MLS/HR Zirconium Oxide 10 gm BID PO 02/21/25 11:00 02/21/25 12:17 10 GM objective Gen.: Patient lying in bed in medical ICU. Intubated on mechanical ventilator. Head: Normocephalic, atraumatic. Eyes: PERRLA. Ears: Normal external anatomy. Throat: Endotracheal tube and orogastric tube in place. Neck: Supple, trachea midline. Chest: Transmitted breath sounds bilaterally. Decreased air entry bilaterally. No wheezing. Bibasilar crackles. Cardiovascular: Positive S1, positive S2. Regular rate and rhythm. Abdomen: Positive bowel sounds in all 4 quadrants. Soft, nontender, nondistended. : Serrano in place. Normal external genitalia. Rectal: Deferred. Skin: Warm, dry. Intact. Extremities: 2+ radial pulses bilaterally. No lower extremity edema. Neuro: Off sedation laboratory and microbiology Laboratory Tests 02/21/25 20:55 02/21/25 05:50 Test 02/21/25 05:50 Range/Units Serum Glucose 122 H 74-106 mg/dL Assessment/Plan Impression: Acute on chronic hypoxic respiratory failure Acute on chronic hypercarbic respiratory failure On mechanical ventilator Tracheobronchomalacia NSTEMI Pneumonia Gram-positive/Gram-negative pneumonia COPD Obstructive sleep apnea Morbid obesity, BMI 63.4 Paroxysmal atrial fibrillation Events: Remains on vent support Tapered sedation Off Versed, Fentanyl since 2 PM CPAP with PS 8, PEEP of 5 OK to use Precedex drip if necessary Amiodarone drip Diurese to euvolemia w/ Lasix Monitor renal function due to Acute kidney injury. Monitor electrolytes. Supplement as necessary. ABG reviewed, compensated. CXR reviewed, cardiomegaly with pulmonary congestion and edema. Superimposed pneumonia cannot be excluded. Labs and imaging reviewed. Rest of plan as noted below. Plan: s/p intubation on mechanical ventilator AC mode w/ RR 28, Vt 450 mL, Peep 8, FIo2 40% Titrate FIO2 to keep O2 saturation 88-94%. VAP bundle Daily ABG and CXR while intubated. Off sedation Bronchodilators IV steroids Pressors as necessary for hemodynamic support. Titrate to keep MAP above 65 mmHg/SBP above 90 mmHg. Continue antibiotics. F/u cultures. F/u RML BAL Amio drip Cardio recs appreciated On Lasix drip for diuresis Monitor renal function due to Acute kidney injury. Monitor electrolytes. Supplement as necessary. Monitor ins/outs Nutritional support. Accucheks, ISS. DVT prophylaxis- on Eliquis. Condition: Critical Prognosis: Poor given multiple comorbidities. Rest of plan per hospitalist and other consultants. A total of 35 minutes of critical care time was spent reviewing the patient record, examining the patient, making a diagnostic and therapeutic plan, discussing this plan with the medical personnel, following up on diagnostic studies and following the patient for clinical stability excluding any and all procedures. At least 50% of this time was spent in direct, [id number] contact. Thank you Dr. Roa for allowing me to participate in this patient's care. Further recommendations will depend on patient's clinical course. Please do not hesitate to contact me if you have any questions or concerns. This medical document was created using an electronic medical record system with [employer] dictation system. Although this document has been carefully reviewed, there may still be some phonetic and typographical errors. These areas are purely typographical due to imperfections of the software programs, and do not reflect any compromise in the patient's medical care. Plan discussed with: Other (BETSEY Hinojosa) Critical Care Time(min): 35 RADHA BRANDT MD Feb 21, 2025 22:37
[2025-02-22] VITALS (110 sets, daily range): BP systolic 75–132; BP diastolic 22–82; PULSE 67–192; RESP 13–43; TEMP 97.5–98.8; O2SAT 90–99
[2025-02-22] MEDS: AMIODARONE 360mg/200mL PREMIX 200 ML IV ONE ×2 (00:23→02:20)
[2025-02-22 00:26] LABS: Basophils # (auto) 0 10 ^3/uL (0-0.2); Eosinophils # (auto) 0 10 ^3/uL (0-0.8); Hematocrit 30.1 % (36.0-46.0); Hemoglobin 10.1 g/dL (12.2-16.2); Lymphocytes # (auto) 0.3 10 ^3/uL (0.4-5.4); Lymphocytes % (auto) 5.3 % (10.0-50.0); Mean Corpuscular Hemoglobin 31.5 pg (28.0-32.0); Mean Corpuscular Hgb Conc. 33.6 g/dL (32.0-36.0); Mean Corpuscular Volume 93.9 fL (80.0-100.0); Monocytes # (auto) 0.2 10 ^3/uL (0-1.3); Monocytes % (auto) 3.1 % (0.0-12.0); Neutrophils # (auto) 4.6 10 ^3/uL (1.6-8.6); Neutrophils % (auto) 91.6 % (37.0-80.0); Nucleated Red Blood Cells % 0.1 %; Platelet Count (auto) 127 10^3/uL (140-450); Red Blood Cells 3.21 10^6/uL (4.0-5.20); Red Cell Distribution Width 24.6 % (11.8-14.3)
[2025-02-22 00:36] LABS: Alanine Aminotransferase 14 U/L (7-40); Albumin 3.8 g/dL (3.2-4.8); Alkaline Phosphatase 110 U/L (46-116); Anion Gap 9 (5-15); Aspartate Aminotransferase 19 U/L (13-40); BUN/Creatinine Ratio 24.4 (10.0-20.0); Bilirubin, Total 0.6 mg/dL (0.2-1.0); Calcium 9.8 mg/dL (8.7-10.4); Carbon Dioxide 30 mmol/L (20-31); Potassium 4.7 mmol/L (3.5-5.1); Total Protein 6.8 g/dL (5.7-8.2)
[2025-02-22 00:41] LABS: Blood Urea Nitrogen 50 mg/dL (9-23); Chloride 93 mmol/L (98-107); Glucose 164 mg/dL (74-106); Sodium 132 mmol/L (136-145)
[2025-02-22] MEDS: AMIODARONE 360mg/200mL PREMIX 200 ML IV SCH ×2 (01:04→08:55)
[2025-02-22] MEDS: VASOPRESSIN 20 UNIT/ML ONE (02:30)
[2025-02-22] MEDS: PHENYLEPHRINE IV 250 ML IV SCH (02:30)
[2025-02-22] MEDS: VASOPRESSIN 20 UNITS in SODIUM CHL 0.9% 99 ML IV SCH (02:30)
[2025-02-22] MEDS: PROPOFOL 100 ML IV SCH (03:00)
[2025-02-22 03:50] LABS: Basophils # (auto) 0 10 ^3/uL (0-0.2); Eosinophils # (auto) 0 10 ^3/uL (0-0.8); Hematocrit 31.5 % (36.0-46.0); Hemoglobin 10.1 g/dL (12.2-16.2); Lymphocytes # (auto) 0.2 10 ^3/uL (0.4-5.4); Lymphocytes % (auto) 3.6 % (10.0-50.0); Mean Corpuscular Hemoglobin 30.3 pg (28.0-32.0); Mean Corpuscular Hgb Conc. 32.1 g/dL (32.0-36.0); Mean Corpuscular Volume 94.4 fL (80.0-100.0); Monocytes # (auto) 0.2 10 ^3/uL (0-1.3); Monocytes % (auto) 4.4 % (0.0-12.0); Nucleated Red Blood Cells % 0.1 %; Platelet Count (auto) 117 10^3/uL (140-450); Red Blood Cells 3.33 10^6/uL (4.0-5.20); Red Cell Distribution Width 24.4 % (11.8-14.3); White Blood Cell 4.4 10^3/uL (4.4-10.8)
[2025-02-22 04:02] LABS: Potassium 4.5 mmol/L (3.5-5.1)
[2025-02-22 04:03] LABS: Anion Gap 12 (5-15); Calcium 9.9 mg/dL (8.7-10.4); Carbon Dioxide 28 mmol/L (20-31)
[2025-02-22 04:08] LABS: BUN/Creatinine Ratio 24.9 (10.0-20.0)
[2025-02-22 04:16] LABS: Blood Urea Nitrogen 52 mg/dL (9-23); Chloride 92 mmol/L (98-107); Glucose 181 mg/dL (74-106); Sodium 132 mmol/L (136-145)
[2025-02-22] MEDS ORDERED: DEXTROSE (50%) 50ML SYRG IV PRN (07:15)
[2025-02-22] MEDS: ACCU-CHEK COMFORT CURVE STRIP VI SCH (07:19)
[2025-02-22 07:25] LABS: Base Excess 1.2 mmol/L (-2.0-3.0)
[2025-02-22] MEDS: InsuLIN REG 1unit/0.01ml Soln (100units/ml) SC SCH (09:02)
--- NOTE | 2025-02-22 09:18 | DVHPNRES ---
Progress Note Date Seen: Feb 22, 2025 Resident Creating Document: NIKIA DAWN RESIDENT Medical Necessity Reason Pt with a Central, PICC or Fol: Yes The following are medically ne: Serrano Catheter Reason for serrano catheter: Strict I&O Subjective Review of Systems Patient was seen and examined on the bedside. She is intubated and on mechanical ventilation with tidal volume 450 mL, PEEP 8, respiratory 28 and FiO2 40%. patient had an episode of AFib with RVR yesterday. Sedation/ vacation started since yesterday and today morning patient failed CPAP trial. We will try again CPAP trial tomorrow. Objective vital signs Vital Sign Date Time Temp Pulse Resp B/P (MAP) Pulse Ox O2 Delivery O2 Flow Rate FiO2 02/22/25 09:13 113/59 02/22/25 07:38 103 28 95 40 02/22/25 06:30 97.7 207.9 02/22/25 06:00 Mechanical Ventilator+ Total Intake and Output 02/21/25 02/21/25 02/22/25 15:00 23:00 07:00 Intake Total 356.78 ml 298.58 ml 541.451 ml Output Total 1800 ml 1375 ml Balance 356.78 ml -1501.42 ml -833.549 ml medications Current Medications Medications Dose Ordered Sig/Adolfo Route Start Time Stop Time Status Last Admin Dose Admin Nitroglycerin 0.4 mg Q5MINP PRN SL 02/19/25 15:15 Morphine Sulfate 2 mg Q30M PRN IV 02/19/25 15:15 02/19/25 21:24 2 MG Albuterol 2.5 mg Q6HR NEB 02/19/25 18:00 02/22/25 05:58 2.5 MG Ipratropium [place] 0.5 mg Q6HR NEB 02/19/25 18:00 02/22/25 05:58 0.5 MG Metoprolol Tartrate 25 mg BID PO 02/19/25 22:00 Hold Apixaban 5 mg BID PO 02/19/25 22:00 02/22/25 09:12 5 MG Midazolam HCl 50 ml @ 1 mls/hr Q24H IV 02/20/25 08:30 02/22/25 06:34 15 MLS/HR Norepinephrine Bitartrate 250 ml @ 3.75 mls/hr Q24H IV 02/20/25 09:45 02/22/25 02:21 3.75 MLS/HR Doxycycline Hyclate 100 ml @ 50 mls/hr Q12H IV 02/20/25 10:00 02/22/25 09:12 50 MLS/HR Methylprednisolone Sodium Succinate 40 mg DAILY IV 02/21/25 10:00 02/22/25 09:03 40 MG Fentanyl Citrate 250 ml @ 2.5 mls/hr Q24H IV 02/20/25 11:00 02/21/25 23:00 2.5 MLS/HR Cefepime HCl 50 ml @ 12.5 mls/hr Q12H IV 02/20/25 11:30 02/21/25 23:07 12.5 MLS/HR Enteral Nutritional Formula 1,000 ml 30ML/HR GT 02/21/25 10:15 02/21/25 20:39 1,000 ML Furosemide 100 mg/ Sodium Chloride 110 ml @ 6.6 mls/hr [id number] IV 02/21/25 11:00 02/21/25 21:59 6.6 MLS/HR Zirconium Oxide 10 gm BID PO 02/21/25 11:00 02/21/25 12:17 10 GM Propofol 100 ml @ 5.181 mls/ hr [id number] IV 02/22/25 00:30 02/22/25 08:16 36.267 MLS/HR Phenylephrine HCl 250 ml @ 30 mls/hr Q8H20M IV 02/22/25 02:30 Vasopressin 20 units/Sodium Chloride 100 ml @ 9 mls/hr Q11H7M IV 02/22/25 02:30 02/22/25 02:30 9 MLS/HR Diagnostic Test (Pha) 1 strip ACHS 02/22/25 07:19 02/22/25 07:19 1 STRIP Insulin Human Regular ACHS SC 02/22/25 07:19 02/22/25 09:02 4 UNITS Dextrose 50 ml UD PRN IV 02/22/25 07:15 Examination Physical examination: General Appearance: Intubated and on mechanical ventilation . HEENT: Atraumatic, PERRLA, EOMI, Mucous membrane moist/pink Respiratory: Lt sided absent breath sound and rt sided crackles and wheezing. Cardiovascular: Regular rate, Normal S1, Normal S2, No murmurs, no chest wall tenderness Abdominal: Normal bowel sounds, Soft, No tenderness, No hepatospenomegaly, No masses Extremities: Bilateral pedal edema+, No clubbing, No cyanosis, No edema, Normal pulses, No tenderness/swelling Skin: No rashes, No breakdown, No significant lesion laboratory and microbiology Laboratory Tests 02/22/25 03:30 Test 02/22/25 03:30 Range/Units Serum Glucose 181 H 74-106 mg/dL Microbiology Date/Time Source Procedure Growth Status 02/20/25 18:28 Other Pending Resulted 02/20/25 18:28 Other Pending Resulted 02/20/25 18:28 Other Pending Resulted 02/20/25 18:28 Other Pending Resulted 02/20/25 18: Other - Final See Separate Report... Resulted 02/20/25 18:28 Bronchial Washings Gram Stain - Final Resulted 02/20/25 18:28 Bronchial Washings Respiratory Culture - Preliminary Resulted Labs and/or images reviewed: Labs reviewed by me, Image(s) reviewed by me Problem List/Assessment/Plan Problem List/Assessment/Plan Assessment and plan: # Acute on chronic hypoxic hypercapnic respiratory failure likely due to acute exacerbation of chronic diastolic heart failure # Possible community acquired Gram-positive/Gram-negative pneumonia # NSTEMI likely type 2 secondary to above # Chronic COPD # History of obstructive sleep apnea - Patient is on mechanical ventilation with tidal volume 500, PEEP and FIO2 50% - Patient is on IV Levophed as per protocol, fentanyl drip and Versed, vesopressin. - CXR complete opacification of the left hemidiaphragm worsened from the previous exam - BNP is elevated - med neb with albuterol and ipratropium q.6 hours - IV cefepime 1 g b.i.d. and IV doxycycline 100 mg b.i.d. - IV Lasix drip at 6 microgram/hours - IV methylprednisolone 40 mg daily - Pending echo and sputum C/S - Pulmonology on board - patient underwent bronchoscopy and the BAL sent for cytology and culture - patient's fail CPAP trial today and we will try again tomorrow. # Paroxysmal atrial fibrillation with secondary hypercoagulable state [id number] score 5 - IV amiodarone as per protocol. - Continue metoprolol 25 mg b.i.d. and Eliquis 5 mg b.i.d. # DVT prophylaxis - Patient is on Eloquis Goal of care discussed with the family for more than 20 minutes full code Plan discussed with Dr. Francisco Plan discussed with: Patient, Other My Orders My Orders Orders - NIKIA DAWN Procedure Category Date Status Time Blood Culture MINA 02/21/25 In Process 11:23 Urine Bacterial MINA 02/21/25 In Process Culture 09:51 Insert Midline ORDERS 02/21/25 Transmitted 10:03 Sodium Chl 0.9% PHA 02/21/25 In Process (So... W/Furosemide 11:00 Sodium Zirconium PHA 02/21/25 In Process Cyclosilicate 11:00 * Wound Consult CONS 02/21/25 Transmitted * Dietary Consult CONS 02/21/25 Transmitted 15:03 * Physician Assistant Certified CONS 02/21/25 Transmitted Consult Cpap/Sed Vacation Med ORDERS 02/21/25 Transmitted Weaning 19:12 Cpap Trial For Am ORDERS 02/21/25 Transmitted 19:12 Glucose Blood PHA 02/22/25 In Process (Accu-Chek Comfort 07:19 Insulin R (Human) PHA 02/22/25 In Process (Insulin R) 07:19 Dextrose 50% Syringe PHA 02/22/25 In Process 07:15 Amiodarone PHA 02/22/25 In Process 360mg/200ml Premix 08:41 Date of Service: Feb 22, 2025 Billing Provider: ZEINA CARPIO MD Common Visit Codes: [id number] CARE 30-74 MIN NIKIA DAWN RESIDENT Feb 22, 2025 09:18 ZEINA CARPIO MD Feb 24, 2025 22:51
--- NOTE | 2025-02-22 09:27 | DVH ---
INDICATION: vented TECHNIQUE: Frontal view of the chest. COMPARISON: XY CHEST PORTABLE on DOS: 02/21/25, XY CHEST XRAY 1 VIEW on DOS: 02/20/25, XY CHEST XRAY 1 VIEW on DOS: 02/20/25, XY CHEST XRAY 1 VIEW on DOS: 02/20/25, XY CHEST PORTABLE on DOS: 02/19/25, XY YAA ST PORTABLE on DOS: 02/21/25 FINDINGS: LUNGS AND PLEURAL SPACES: See below. HEART: Cardiomegaly with pulmonary congestion and edema. Superimposed pneumonia cannot be excluded. MEDIASTINUM: Unremarkable. Normal mediastinal contour. BONES/JOINTS: Unremarkable. No acute fracture. TUBES, LINES AND DEVICES: Stable tubes and lines. OTHER FINDINGS: . .. IMPRESSION: 1. Cardiomegaly with pulmonary congestion and edema. Superimposed pneumonia cannot be excluded. 2. No significant change from the prior exam.
--- NOTE | 2025-02-22 23:31 | DVHPN2 ---
Progress Note - Dictate Date Seen: Feb 22, 2025 Medical Necessity Reason Pt with a Central, PICC or Fol: Yes The following are medically ne: Serrano Catheter Reason for serrano catheter: Strict I&O Subjective Patient seen and examined at bedside. Sedated, intubated on mechanical ventilator. Overnight events reviewed vital signs Vital Sign Date Time Temp Pulse Resp B/P (MAP) Pulse Ox O2 Delivery O2 Flow Rate FiO2 02/22/25 22:52 105/66 02/22/25 22:14 82 28 95 50 02/22/25 18:15 97.8 97.8 02/22/25 18:00 Mechanical Ventilator+ Total Intake and Output 02/21/25 02/21/25 02/22/25 14:59 22:59 06:59 Intake Total 365.08 ml 261.08 ml 614.711 ml Output Total 1800 ml 1375 ml Balance 365.08 ml -1538.92 ml -760.289 ml medications Current Medications Medications Dose Ordered Sig/Adolfo Route Start Time Stop Time Status Last Admin Dose Admin Nitroglycerin 0.4 mg Q5MINP PRN SL 02/19/25 15:15 Morphine Sulfate 2 mg Q30M PRN IV 02/19/25 15:15 02/19/25 21:24 2 MG Albuterol 2.5 mg Q6HR NEB 02/19/25 18:00 02/22/25 18:05 2.5 MG Ipratropium [place] 0.5 mg Q6HR NEB 02/19/25 18:00 02/22/25 18:05 0.5 MG Metoprolol Tartrate 25 mg BID PO 02/19/25 22:00 Hold Apixaban 5 mg BID PO 02/19/25 22:00 02/22/25 22:48 5 MG Midazolam HCl 50 ml @ 1 mls/hr Q24H IV 02/20/25 08:30 02/22/25 22:32 15 MLS/HR Norepinephrine Bitartrate 250 ml @ 3.75 mls/hr Q24H IV 02/20/25 09:45 02/22/25 02:21 3.75 MLS/HR Doxycycline Hyclate 100 ml @ 50 mls/hr Q12H IV 02/20/25 10:00 02/22/25 23:21 50 MLS/HR Methylprednisolone Sodium Succinate 40 mg DAILY IV 02/21/25 10:00 02/22/25 09:03 40 MG Fentanyl Citrate 250 ml @ 2.5 mls/hr Q24H IV 02/20/25 11:00 02/22/25 22:52 10 MLS/HR Cefepime HCl 50 ml @ 12.5 mls/hr Q12H IV 02/20/25 11:30 02/22/25 23:22 12.5 MLS/HR Enteral Nutritional Formula 1,000 ml 30ML/HR GT 02/21/25 10:15 02/21/25 20:39 1,000 ML Furosemide 100 mg/ Sodium Chloride 110 ml @ 6.6 mls/hr [id number] IV 02/21/25 11:00 02/22/25 18:34 6.6 MLS/HR Zirconium Oxide 10 gm BID PO 02/21/25 11:00 02/22/25 22:53 10 GM Propofol 100 ml @ 5.181 mls/ hr [id number] IV 02/22/25 00:30 02/22/25 22:33 31.086 MLS/HR Phenylephrine HCl 250 ml @ 30 mls/hr Q8H20M IV 02/22/25 02:30 Vasopressin 20 units/Sodium Chloride 100 ml @ 9 mls/hr Q11H7M IV 02/22/25 02:30 02/22/25 12:16 9 MLS/HR Diagnostic Test (Pha) 1 strip ACHS 02/22/25 07:19 02/22/25 22:54 1 STRIP Insulin Human Regular ACHS SC 02/22/25 07:19 02/22/25 22:53 2 UNITS Dextrose 50 ml UD PRN IV 02/22/25 07:15 Dexmedetomidine HCl 400 mcg/ Dextrose 100 ml @ 8.87 mls/hr [id number] IV 02/22/25 17:30 02/22/25 22:49 8.87 MLS/HR objective Gen.: Patient lying in bed in medical ICU. Sedated, intubated on mechanical ventilator. Head: Normocephalic, atraumatic. Eyes: PERRLA. Ears: Normal external anatomy. Throat: Endotracheal tube and orogastric tube in place. Neck: Supple, trachea midline. Chest: Transmitted breath sounds bilaterally. Decreased air entry bilaterally. No wheezing. Bibasilar crackles. Cardiovascular: Positive S1, positive S2. Regular rate and rhythm. Abdomen: Positive bowel sounds in all 4 quadrants. Soft, nontender, nondistended. : Serrano in place. Normal external genitalia. Rectal: Deferred. Skin: Warm, dry. Intact. Extremities: 2+ radial pulses bilaterally. No lower extremity edema. Neuro: Sedated laboratory and microbiology Laboratory Tests 02/22/25 03:30 Test 02/22/25 03:30 Range/Units Serum Glucose 181 H 74-106 mg/dL Assessment/Plan Impression: Acute on chronic hypoxic respiratory failure Acute on chronic hypercarbic respiratory failure On mechanical ventilator Tracheobronchomalacia NSTEMI Pneumonia Gram-positive/Gram-negative pneumonia COPD Obstructive sleep apnea Morbid obesity, BMI 63.4 Paroxysmal atrial fibrillation Events: Remains on vent support AC mode w/ RR 28, Vt 450 mL, Peep 8, FIo2 45% Sedated on Versed, Fentanyl, Propofol Amiodarone drip Precedex drip Pressors for hemodynamic support. On vasopressin 0.03 units/min Titrate to keep MAP above 65 mmHg/SBP above 90 mmHg. Diurese to euvolemia w/ Lasix drip Monitor renal function due to Acute kidney injury. Monitor electrolytes. Supplement as necessary. Taper sedation CPAP in AM with PS 8, PEEP 5. Obtain chest x-ray and ABG in AM. Labs and imaging reviewed. Rest of plan as noted below. Plan: s/p intubation on mechanical ventilator AC mode w/ RR 28, Vt 450 mL, Peep 8, FIo2 45% Titrate FIO2 to keep O2 saturation 88-94%. VAP bundle Daily ABG and CXR while intubated. Sedate for vent synchrony Bronchodilators IV steroids Pressors for hemodynamic support. Titrate to keep MAP above 65 mmHg/SBP above 90 mmHg. Continue antibiotics. F/u cultures. F/u RML BAL Amio drip Cardio recs appreciated On Lasix drip for diuresis Monitor renal function due to Acute kidney injury. Monitor electrolytes. Supplement as necessary. Monitor ins/outs Nutritional support. Accucheks, ISS. DVT prophylaxis- on Eliquis. Condition: Critical Prognosis: Poor given multiple comorbidities. Rest of plan per hospitalist and other consultants. A total of 35 minutes of critical care time was spent reviewing the patient record, examining the patient, making a diagnostic and therapeutic plan, discussing this plan with the medical personnel, following up on diagnostic studies and following the patient for clinical stability excluding any and all procedures. At least 50% of this time was spent in direct, [id number] contact. Thank you Dr. Roa for allowing me to participate in this patient's care. Further recommendations will depend on patient's clinical course. Please do not hesitate to contact me if you have any questions or concerns. This medical document was created using an electronic medical record system with [employer] dictation system. Although this document has been carefully reviewed, there may still be some phonetic and typographical errors. These areas are purely typographical due to imperfections of the software programs, and do not reflect any compromise in the patient's medical care. Dietary Evaluation Review Comments: 1. Disagree with current TF orders, change to Vital HP @ 40 ml/hr continuously 2. Provide free water flushes of 30 ml Q8 hrs (90 ml total); adjust PRN 3. Monitor BMP/lytes and replete to WNL 4. When appropriate for oral diet, recommend Cardiac diet as tolerated TF Provision: TF at goal to provide 960 ml total volume, 960 kcal (+958 kcal via propofol = 1918 kcal), 84 gm pro, 0 gm fiber, 107 gm CHO, 801 ml H20 (meets 100% est. kcal needs, 100% est. pro needs) Expected Outcomes/Goals: Improved nutritional status, hemodynamic stability. Plan discussed with: Other (BETSEY Bertrand) Critical Care Time(min): 35 RADHA BRANDT MD Feb 22, 2025 23:31
[2025-02-23] VITALS (108 sets, daily range): BP systolic 96–175; BP diastolic 55–95; PULSE 67–138; RESP 12–41; TEMP 97.6–98.2; O2SAT 94–100
[2025-02-23 03:42] LABS: Basophils # (auto) 0 10 ^3/uL (0-0.2); Basophils % (auto) 0.3 % (0.0-2.0); Eosinophils # (auto) 0 10 ^3/uL (0-0.8); Hematocrit 27.7 % (36.0-46.0); Hemoglobin 9.2 g/dL (12.2-16.2); Lymphocytes # (auto) 0.2 10 ^3/uL (0.4-5.4); Mean Corpuscular Hemoglobin 31.2 pg (28.0-32.0); Mean Corpuscular Hgb Conc. 33.2 g/dL (32.0-36.0); Mean Corpuscular Volume 93.9 fL (80.0-100.0); Monocytes # (auto) 0.1 10 ^3/uL (0-1.3); Monocytes % (auto) 4.6 % (0.0-12.0); Neutrophils # (auto) 2.6 10 ^3/uL (1.6-8.6); Neutrophils % (auto) 89.1 % (37.0-80.0); Nucleated Red Blood Cells % 0.3 %; Platelet Count (auto) 104 10^3/uL (140-450); Red Blood Cells 2.95 10^6/uL (4.0-5.20); White Blood Cell 2.9 10^3/uL (4.4-10.8)
--- NOTE | 2025-02-23 03:50 | DVH ---
CHEST RADIOGRAPH Indication: pneumonia Technique: Single frontal view of the chest was obtained COMPARISON: XY CHEST PORTABLE on DOS: 02/22/25, XY CHEST PORTABLE on DOS: 02/21/25, XY CHEST XRAY 1 VIE W on DOS: 02/20/25, XY CHEST XRAY 1 VIEW on DOS: 02/20/25, XY CHEST XRAY 1 VIEW on DOS: 02/20/25 FINDINGS: Lines and Tubes: Unchanged. Lungs: Stable appearing diffuse increased prominence of the pulmonary vasculature. Bibasilar airspace disease not excluded. Pleura: No definite effusion. No pneumothorax. Cardiomediastinal contours: Cardiomegaly. Bones: Unremarkable IMPRESSION: 1. Stable appearing diffuse increased prominence of the pulmonary vasculature and cardiomegaly. 2. Bibasilar pulmonary airspace disease not excluded. 3. Lines and tubes unchanged.
[2025-02-23 03:52] LABS: Anion Gap 11 (5-15); Carbon Dioxide 30 mmol/L (20-31)
[2025-02-23 03:53] LABS: Calcium 9.7 mg/dL (8.7-10.4)
[2025-02-23 03:55] LABS: Chloride 91 mmol/L (98-107); Sodium 132 mmol/L (136-145)
[2025-02-23 04:15] LABS: Blood Urea Nitrogen 51 mg/dL (9-23); Glucose 210 mg/dL (74-106)
[2025-02-23 08:49] LABS: Base Excess 4.4 mmol/L (-2.0-3.0)
[2025-02-23] MEDS: METOPROLOL TARTRATE 50 MG TAB PO SCH (11:51)
--- NOTE | 2025-02-23 17:17 | DVHPN2 ---
Subjective 02/23-while sedated the patient's heart rate AFib is rate controlled. We will try CPAP trial today again and start metoprolol. Cardiology consult has still not seen patient or have given any recommendations for AFib. We will continue diuresis and try extubation. Reviewed: H&P Changes from previous H/P or p: No Changes General: Per HPI Objective Vitals Vital Signs Date Time Temp Pulse Resp B/P (MAP) Pulse Ox O2 Delivery O2 Flow Rate FiO2 02/23/25 16:40 100 20 144/57 (86) 98 40 02/23/25 16:00 Mechanical Ventilator+ 02/23/25 12:00 97.7 97.7 Intake/Output Intake and Output 02/23/25 07:00 Intake Total 2343.465 ml Output Total 3050 ml Balance -706.535 ml Intake Oral 60 ml IV Total 2283.465 ml Output Urine Total 3050 ml Exam General Appearance: Intubated and on mechanical ventilation . HEENT: Atraumatic, PERRLA, EOMI, Mucous membrane moist/pink Respiratory: Lt sided absent breath sound and rt sided crackles and wheezing. Cardiovascular: Regular rate, Normal S1, Normal S2, No murmurs, no chest wall tenderness Abdominal: Normal bowel sounds, Soft, No tenderness, No hepatospenomegaly, No masses Extremities: Bilateral pedal edema+, No clubbing, No cyanosis, No edema, Normal pulses, No tenderness/swelling Skin: No rashes, No breakdown, No significant lesion Medications Current Medications Medications Dose Ordered Sig/Adolfo Route Start Time Stop Time Status Last Admin Dose Admin Nitroglycerin 0.4 mg Q5MINP PRN SL 02/19/25 15:15 Morphine Sulfate 2 mg Q30M PRN IV 02/19/25 15:15 02/19/25 21:24 2 MG Albuterol 2.5 mg Q6HR NEB 02/19/25 18:00 02/23/25 11:41 2.5 MG Ipratropium [place] 0.5 mg Q6HR NEB 02/19/25 18:00 02/23/25 11:42 0.5 MG Apixaban 5 mg BID PO 02/19/25 22:00 02/23/25 10:15 5 MG Midazolam HCl 50 ml @ 1 mls/hr Q24H IV 02/20/25 08:30 02/23/25 02:38 7 MLS/HR Norepinephrine Bitartrate 250 ml @ 3.75 mls/hr Q24H IV 02/20/25 09:45 02/22/25 02:21 3.75 MLS/HR Doxycycline Hyclate 100 ml @ 50 mls/hr Q12H IV 02/20/25 10:00 02/23/25 10:15 50 MLS/HR Methylprednisolone Sodium Succinate 40 mg DAILY IV 02/21/25 10:00 02/23/25 10:15 40 MG Fentanyl Citrate 250 ml @ 2.5 mls/hr Q24H IV 02/20/25 11:00 02/22/25 22:52 7.5 MLS/HR Cefepime HCl 50 ml @ 12.5 mls/hr Q12H IV 02/20/25 11:30 02/23/25 11:51 12.5 MLS/HR Enteral Nutritional Formula 1,000 ml 30ML/HR GT 02/21/25 10:15 02/21/25 20:39 1,000 ML Furosemide 100 mg/ Sodium Chloride 110 ml @ 6.6 mls/hr [id number] IV 02/21/25 11:00 02/23/25 06:50 6.6 MLS/HR Propofol 100 ml @ 5.181 mls/ hr [id number] IV 02/22/25 00:30 02/23/25 06:38 15.543 MLS/HR Phenylephrine HCl 250 ml @ 30 mls/hr Q8H20M IV 02/22/25 02:30 Vasopressin 20 units/Sodium Chloride 100 ml @ 9 mls/hr Q11H7M IV 02/22/25 02:30 02/23/25 06:50 9 MLS/HR Diagnostic Test (Pha) 1 strip ACHS 02/22/25 07:19 02/23/25 11:51 1 STRIP Insulin Human Regular ACHS SC 02/22/25 07:19 02/23/25 12:00 4 UNITS Dextrose 50 ml UD PRN IV 02/22/25 07:15 Dexmedetomidine HCl 400 mcg/ Dextrose 100 ml @ 8.87 mls/hr [id number] IV 02/22/25 17:30 02/23/25 10:47 13.305 MLS/HR Metoprolol Tartrate 50 mg BID PO 02/23/25 11:00 02/23/25 11:51 50 MG Zirconium Oxide 10 gm DAILY PO 02/23/25 22:00 Laboratory Results Laboratory Tests 02/23/25 03:11 Chemistry Test 02/23/25 03:11 Calcium Level 9.7 mg/dL (8.7-10.4) Urinalysis Test 02/19/25 19:01 Urine Color Yellow (Yellow) Urine Clarity Turbid (Clear) H Urine pH 5.0 (5.0-9.0) Urine Specific [place] 1.019 (1.001-1.035) Urine Protein 2+ (Negative) H Urine Ketones Negative (Negative) Urine Blood 1+ /uL (Negative) H Urine Nitrite Negative (Negative) Urine Bilirubin Negative (Negative) Urine Urobilinogen Normal mg/dL (Negative) Urine Leukocyte Esterase Trace /uL (Negative) Urine RBC 6 /hpf (0 - 4) Urine Microscopic WBC 14 /HPF (0-5) H Urine Squamous Epithelial Cells Few /hpf (<5) Urine Bacteria None seen /hpf (None Seen) Urine Hyaline Casts Many /lpf (0 - 2) Urine Glucose Normal mg/dL (Normal) Blood Gas Results Test 02/23/25 08:17 Arterial Blood pH 7.452 (7.350-7.450) FiO2 % 45.0 Microbiology Microbiology Date/Time Source Procedure Growth Status 02/21/25 11:22 Blood Blood Culture - Preliminary NO GROWTH AFTER 48 HOURS OF INCUBATION. Resulted 02/21/25 09:30 Nose MRSA Screen - Final Complete 02/21/25 09:30 Voided Urine Urine Culture - Final Complete 02/20/25 18:28 Bronchial Washings Gram Stain - Final Resulted 02/20/25 18:28 Bronchial Washings Respiratory Culture - Preliminary Resulted Labs and/or images reviewed: Labs reviewed by me, Image(s) reviewed by me Assessment/Plan Assessment/Plan 02/23-while sedated the patient's heart rate AFib is rate controlled. We will try CPAP trial today again and start metoprolol. Cardiology consult has still not seen patient or have given any recommendations for AFib. We will continue diuresis and try extubation. # Acute on chronic hypoxic hypercapnic respiratory failure, requiring invasive mechanical ventilation, likely due to acute exacerbation of chronic diastolic heart failure # Possible community acquired pneumonia, Gram-positive/Gram-negative likely # NSTEMI likely type 2 secondary to above # Chronic COPD # obstructive sleep apnea # obesity hyperventilation syndrome - Patient is on mechanical ventilation - Patient is on IV Levophed as per protocol, fentanyl drip and Versed, - CXR complete opacification of the left hemidiaphragm worsened from the previous exam - BNP is elevated - med neb with albuterol and ipratropium q.6 hours - IV cefepime 1 g b.i.d. and IV doxycycline 100 mg b.i.d. - IV Lasix drip at 6 microgram/hours - IV methylprednisolone 40 mg daily - Pending echo and sputum C/S - Pulmonology on board - patient underwent bronchoscopy and the BAL sent for cytology and culture - patient's fail CPAP trial today # Paroxysmal atrial fibrillation with secondary hypercoagulable state [id number] score 5 - IV amiodarone as per protocol. - Continue metoprolol 25 mg b.i.d. and Eliquis 5 mg b.i.d. # DVT prophylaxis - Patient is on Eloquis Plan discussed with: Patient My Orders Orders - ZEINA CARPIO MD Procedure Category Date Status Time Metoprolol Tartrate PHA 02/23/25 In Process Tablet (Lopressor Ta 11:00 Sodium Zirconium PHA 02/23/25 In Process Cyclosilicate 22:00 Date of Service: Feb 23, 2025 Billing Provider: ZEINA CARPIO MD Common Visit Codes: 22786-[id number] CARE 30-74 MIN ZEINA CARPIO MD Feb 23, 2025 17:17
[2025-02-23] MEDS: SODIUM ZIRCONIUM CYCL 10 GM PAK PO SCH (21:53)
--- NOTE | 2025-02-23 23:30 | DVHPN2 ---
Progress Note - Dictate Date Seen: Feb 23, 2025 Medical Necessity Reason Pt with a Central, PICC or Fol: Yes The following are medically ne: Serrano Catheter Reason for serrano catheter: Strict I&O Subjective Patient seen and examined at bedside. Sedated, intubated on mechanical ventilator. Overnight events reviewed vital signs Vital Sign Date Time Temp Pulse Resp B/P (MAP) Pulse Ox O2 Delivery O2 Flow Rate FiO2 02/23/25 23:02 123/66 02/23/25 22:01 123 28 98 40 02/23/25 18:00 Mechanical Ventilator+ 02/23/25 16:00 97.9 97.9 Total Intake and Output 02/22/25 02/22/25 02/23/25 15:00 23:00 07:00 Intake Total 754.745 ml 745.380 ml 843.340 ml Output Total 1200 ml 1850 ml Balance 754.745 ml -454.620 ml -1006.660 ml medications Current Medications Medications Dose Ordered Sig/Adolfo Route Start Time Stop Time Status Last Admin Dose Admin Nitroglycerin 0.4 mg Q5MINP PRN SL 02/19/25 15:15 Morphine Sulfate 2 mg Q30M PRN IV 02/19/25 15:15 02/19/25 21:24 2 MG Albuterol 2.5 mg Q6HR NEB 02/19/25 18:00 02/23/25 18:15 2.5 MG Ipratropium [place] 0.5 mg Q6HR NEB 02/19/25 18:00 02/23/25 18:15 0.5 MG Apixaban 5 mg BID PO 02/19/25 22:00 02/23/25 21:54 5 MG Midazolam HCl 50 ml @ 1 mls/hr Q24H IV 02/20/25 08:30 02/23/25 02:38 7 MLS/HR Norepinephrine Bitartrate 250 ml @ 3.75 mls/hr Q24H IV 02/20/25 09:45 02/22/25 02:21 3.75 MLS/HR Doxycycline Hyclate 100 ml @ 50 mls/hr Q12H IV 02/20/25 10:00 02/23/25 21:53 50 MLS/HR Methylprednisolone Sodium Succinate 40 mg DAILY IV 02/21/25 10:00 02/23/25 10:15 40 MG Fentanyl Citrate 250 ml @ 2.5 mls/hr Q24H IV 02/20/25 11:00 02/22/25 22:52 7.5 MLS/HR Cefepime HCl 50 ml @ 12.5 mls/hr Q12H IV 02/20/25 11:30 02/23/25 21:54 12.5 MLS/HR Enteral Nutritional Formula 1,000 ml 30ML/HR GT 02/21/25 10:15 02/21/25 20:39 1,000 ML Furosemide 100 mg/ Sodium Chloride 110 ml @ 6.6 mls/hr [id number] IV 02/21/25 11:00 02/23/25 21:54 6.6 MLS/HR Propofol 100 ml @ 5.181 mls/ hr [id number] IV 02/22/25 00:30 02/23/25 06:38 15.543 MLS/HR Phenylephrine HCl 250 ml @ 30 mls/hr Q8H20M IV 02/22/25 02:30 Vasopressin 20 units/Sodium Chloride 100 ml @ 9 mls/hr Q11H7M IV 02/22/25 02:30 02/23/25 06:50 9 MLS/HR Diagnostic Test (Pha) 1 strip ACHS 02/22/25 07:19 02/23/25 21:55 1 STRIP Insulin Human Regular ACHS SC 02/22/25 07:19 02/23/25 22:16 3 UNITS Dextrose 50 ml UD PRN IV 02/22/25 07:15 Dexmedetomidine HCl 400 mcg/ Dextrose 100 ml @ 8.87 mls/hr [id number] IV 02/22/25 17:30 02/23/25 10:47 13.305 MLS/HR Metoprolol Tartrate 50 mg BID PO 02/23/25 11:00 02/23/25 21:55 50 MG Zirconium Oxide 10 gm DAILY PO 02/23/25 22:00 02/23/25 21:53 10 GM objective Gen.: Patient lying in bed in medical ICU. Sedated, intubated on mechanical ventilator. Head: Normocephalic, atraumatic. Eyes: PERRLA. Ears: Normal external anatomy. Throat: Endotracheal tube and orogastric tube in place. Neck: Supple, trachea midline. Chest: Transmitted breath sounds bilaterally. Decreased air entry bilaterally. No wheezing. Bibasilar crackles. Cardiovascular: Positive S1, positive S2. Regular rate and rhythm. Abdomen: Positive bowel sounds in all 4 quadrants. Soft, nontender, nondistended. : Serrano in place. Normal external genitalia. Rectal: Deferred. Skin: Warm, dry. Intact. Extremities: 2+ radial pulses bilaterally. No lower extremity edema. Neuro: Sedated laboratory and microbiology Laboratory Tests 02/23/25 03:11 Test 02/23/25 03:11 Range/Units Serum Glucose 210 H 74-106 mg/dL Assessment/Plan Impression: Acute on chronic hypoxic respiratory failure Acute on chronic hypercarbic respiratory failure On mechanical ventilator Tracheobronchomalacia NSTEMI Pneumonia Gram-positive/Gram-negative pneumonia COPD Obstructive sleep apnea Morbid obesity, BMI 63.4 Paroxysmal atrial fibrillation Events: Remains on vent support AC mode w/ RR 28, Vt 450 mL, Peep 8, FIo2 45% ABG notable for alkalemia CXR reviewed; stable appearing diffuse increased prominence of the pulmonary vasculature and cardiomegaly. Bibasilar pulmonary airspace disease not excluded. Devices in place. Sedated on Versed, Propofol Precedex drip Pressors for hemodynamic support. On vasopressin 0.01 units/min Titrate to keep MAP above 65 mmHg/SBP above 90 mmHg. Off Amiodarone drip Continue antibiotics Tube feeds for nutritional support Diurese to euvolemia w/ Lasix drip Monitor renal function due to Acute kidney injury. Monitor electrolytes. Supplement as necessary. CPAP with PS 14, PEEP 8. Patient failed CPAP, RR of 8 Labs and imaging reviewed. Rest of plan as noted below. Plan: s/p intubation on mechanical ventilator AC mode w/ RR 28, Vt 450 mL, Peep 8, FIo2 45% Titrate FIO2 to keep O2 saturation 88-94%. VAP bundle Daily ABG and CXR while intubated. Sedate for vent synchrony Bronchodilators IV steroids Pressors for hemodynamic support. Titrate to keep MAP above 65 mmHg/SBP above 90 mmHg. Continue antibiotics. F/u cultures. F/u RML BAL Amio drip - held Cardio recs appreciated On Lasix drip for diuresis Monitor renal function due to Acute kidney injury. Monitor electrolytes. Supplement as necessary. Monitor ins/outs Nutritional support. Accu-Cheks, ISS. DVT prophylaxis- on Eliquis. Condition: Critical Prognosis: Poor given multiple comorbidities. Rest of plan per hospitalist and other consultants. A total of 35 minutes of critical care time was spent reviewing the patient record, examining the patient, making a diagnostic and therapeutic plan, discussing this plan with the medical personnel, following up on diagnostic studies and following the patient for clinical stability excluding any and all procedures. At least 50% of this time was spent in direct, [id number] contact. Thank you Dr. Roa for allowing me to participate in this patient's care. Further recommendations will depend on patient's clinical course. Please do not hesitate to contact me if you have any questions or concerns. This medical document was created using an electronic medical record system with [employer] dictation system. Although this document has been carefully reviewed, there may still be some phonetic and typographical errors. These areas are purely typographical due to imperfections of the software programs, and do not reflect any compromise in the patient's medical care. Dietary Evaluation Review Comments: 1. Disagree with current TF orders, change to Vital HP @ 40 ml/hr continuously 2. Provide free water flushes of 30 ml Q8 hrs (90 ml total); adjust PRN 3. Monitor BMP/lytes and replete to WNL 4. When appropriate for oral diet, recommend Cardiac diet as tolerated TF Provision: TF at goal to provide 960 ml total volume, 960 kcal (+958 kcal via propofol = 1918 kcal), 84 gm pro, 0 gm fiber, 107 gm CHO, 801 ml H20 (meets 100% est. kcal needs, 100% est. pro needs) Expected Outcomes/Goals: Improved nutritional status, hemodynamic stability. Plan discussed with: Other (BETSEY Morales) Critical Care Time(min): 35 RADHA BRANDT MD Feb 23, 2025 23:30
[2025-02-24] VITALS (108 sets, daily range): BP systolic 81–145; BP diastolic 48–86; PULSE 83–144; RESP 18–29; TEMP 97–100; O2SAT 92–100
[2025-02-24 04:17] LABS: Basophils # (auto) 0 10 ^3/uL (0-0.2); Basophils % (auto) 0.1 % (0.0-2.0); Eosinophils # (auto) 0 10 ^3/uL (0-0.8); Hematocrit 32.9 % (36.0-46.0); Hemoglobin 10.4 g/dL (12.2-16.2); Lymphocytes # (auto) 0.2 10 ^3/uL (0.4-5.4); Lymphocytes % (auto) 3.2 % (10.0-50.0); Mean Corpuscular Hemoglobin 29.3 pg (28.0-32.0); Mean Corpuscular Hgb Conc. 31.6 g/dL (32.0-36.0); Mean Corpuscular Volume 92.8 fL (80.0-100.0); Monocytes # (auto) 0.3 10 ^3/uL (0-1.3); Monocytes % (auto) 4.6 % (0.0-12.0); Neutrophils # (auto) 5.6 10 ^3/uL (1.6-8.6); Neutrophils % (auto) 92.1 % (37.0-80.0); Nucleated Red Blood Cells % 0.1 %; Platelet Count (auto) 150 10^3/uL (140-450); Red Blood Cells 3.54 10^6/uL (4.0-5.20)
[2025-02-24 04:22] LABS: Potassium 3.7 mmol/L (3.5-5.1)
[2025-02-24 04:23] LABS: Anion Gap 8 (5-15)
[2025-02-24 04:24] LABS: Calcium 9.8 mg/dL (8.7-10.4)
[2025-02-24 04:28] LABS: BUN/Creatinine Ratio 26.9 (10.0-20.0)
[2025-02-24 04:29] LABS: Red Cell Distribution Width 24.2 % (11.8-14.3)
[2025-02-24 04:49] LABS: Blood Urea Nitrogen 53 mg/dL (9-23); Carbon Dioxide 33 mmol/L (20-31); Chloride 91 mmol/L (98-107); Glucose 188 mg/dL (74-106); Sodium 132 mmol/L (136-145)
[2025-02-24 05:50] LABS: Anisocytosis Moderate; Platelet Estimate Adequate
[2025-02-24 07:51] LABS: Base Excess 8.3 mmol/L (-2.0-3.0)
[2025-02-24] MEDS: LACTULOSE 20Gm/30ML SOLN PO SCH (10:22)
--- NOTE | 2025-02-24 10:55 | DVHPNRES ---
Progress Note Date Seen: Feb 24, 2025 Resident Creating Document: NIKIA DAWN Medical Necessity Reason Pt with a Central, PICC or Fol: Yes The following are medically ne: Serrano Catheter Reason for serrano catheter: Strict I&O Subjective Review of Systems Patient was seen and examined on the bedside. She is on intubated and on mechanical ventilation. The patient failed CPAP trial 2 times and we will do another trial tomorrow morning. Objective vital signs Vital Sign Date Time Temp Pulse Resp B/P (MAP) Pulse Ox O2 Delivery O2 Flow Rate FiO2 02/24/25 10:06 119 28 116/65 (82) 95 40 02/24/25 08:00 98.4 209.1 02/24/25 06:00 Mechanical Ventilator+ Total Intake and Output 02/23/25 02/23/25 02/24/25 15:00 23:00 07:00 Intake Total 409.537 ml 430.202 ml 473.035 ml Output Total 2000 ml 1150 ml Balance 409.537 ml -1569.798 ml -676.965 ml medications Current Medications Medications Dose Ordered Sig/Adolfo Route Start Time Stop Time Status Last Admin Dose Admin Nitroglycerin 0.4 mg Q5MINP PRN SL 02/19/25 15:15 Morphine Sulfate 2 mg Q30M PRN IV 02/19/25 15:15 02/19/25 21:24 2 MG Albuterol 2.5 mg Q6HR NEB 02/19/25 18:00 02/24/25 06:28 2.5 MG Ipratropium [place] 0.5 mg Q6HR NEB 02/19/25 18:00 02/24/25 06:28 0.5 MG Apixaban 5 mg BID PO 02/19/25 22:00 02/24/25 10:22 5 MG Midazolam HCl 50 ml @ 1 mls/hr Q24H IV 02/20/25 08:30 02/24/25 03:30 2 MLS/HR Norepinephrine Bitartrate 250 ml @ 3.75 mls/hr Q24H IV 02/20/25 09:45 02/22/25 02:21 3.75 MLS/HR Doxycycline Hyclate 100 ml @ 50 mls/hr Q12H IV 02/20/25 10:00 02/24/25 10:21 50 MLS/HR Methylprednisolone Sodium Succinate 40 mg DAILY IV 02/21/25 10:00 02/24/25 10:22 40 MG Fentanyl Citrate 250 ml @ 2.5 mls/hr Q24H IV 02/20/25 11:00 02/22/25 22:52 7.5 MLS/HR Cefepime HCl 50 ml @ 12.5 mls/hr Q12H IV 02/20/25 11:30 02/23/25 21:54 12.5 MLS/HR Enteral Nutritional Formula 1,000 ml 30ML/HR GT 02/21/25 10:15 02/21/25 20:39 1,000 ML Furosemide 100 mg/ Sodium Chloride 110 ml @ 6.6 mls/hr [id number] IV 02/21/25 11:00 02/23/25 21:54 6.6 MLS/HR Propofol 100 ml @ 5.181 mls/ hr [id number] IV 02/22/25 00:30 02/24/25 01:20 15.543 MLS/HR Phenylephrine HCl 250 ml @ 30 mls/hr Q8H20M IV 02/22/25 02:30 Vasopressin 20 units/Sodium Chloride 100 ml @ 9 mls/hr Q11H7M IV 02/22/25 02:30 02/23/25 06:50 9 MLS/HR Diagnostic Test (Pha) 1 strip ACHS 02/22/25 07:19 02/24/25 05:51 1 STRIP Insulin Human Regular ACHS SC 02/22/25 07:19 02/24/25 06:45 3 UNITS Dextrose 50 ml UD PRN IV 02/22/25 07:15 Dexmedetomidine HCl 400 mcg/ Dextrose 100 ml @ 8.87 mls/hr [id number] IV 02/22/25 17:30 02/23/25 10:47 13.305 MLS/HR Metoprolol Tartrate 50 mg BID PO 02/23/25 11:00 02/23/25 21:55 50 MG Zirconium Oxide 10 gm DAILY PO 02/23/25 22:00 02/23/25 21:53 10 GM Lactulose 30 ml DAILY PO 02/24/25 10:00 02/24/25 10:22 30 ML Examination Physical examination: General Appearance: Intubated and on mechanical ventilation . HEENT: Atraumatic, PERRLA, EOMI, Mucous membrane moist/pink Respiratory: Bilateral basal crackles Cardiovascular: Regular rate, Normal S1, Normal S2, No murmurs, no chest wall tenderness Abdominal: Normal bowel sounds, Soft, No tenderness, No hepatospenomegaly, No masses Extremities: Bilateral pedal edema+, No clubbing, No cyanosis, No edema, Normal pulses, No tenderness/swelling Skin: No rashes, No breakdown, No significant lesion laboratory and microbiology Laboratory Tests 02/24/25 03:20 Test 02/24/25 03:20 Range/Units Serum Glucose 188 H 74-106 mg/dL Microbiology Date/Time Source Procedure Growth Status 02/21/25 11:22 Blood Blood Culture - Preliminary NO GROWTH AFTER 48 HOURS OF INCUBATION. Resulted 02/21/25 09:30 Nose MRSA Screen - Final Complete 02/21/25 09:30 Voided Urine Urine Culture - Final Complete 02/20/25 18:28 Bronchial Washings Gram Stain - Final Resulted 02/20/25 18:28 Bronchial Washings Respiratory Culture - Preliminary Resulted Labs and/or images reviewed: Labs reviewed by me, Image(s) reviewed by me Problem List/Assessment/Plan Problem List/Assessment/Plan Assessment and plan: # Acute on chronic hypoxic hypercapnic respiratory failure likely due to acute exacerbation of chronic diastolic heart failure # Possible community acquired Gram-positive/Gram-negative pneumonia # NSTEMI likely type 2 secondary to above # AN on CKD likely hemodynamically mediated/VMN # Chronic COPD # History of obstructive sleep apnea - Patient is on mechanical ventilation with tidal volume 450, PEEP 8 and FIO2 40%, RR 28 - Patient is on IV Levophed as per protocol, fentanyl drip and Versed - CXR showed increased cardiac silhouette and pulmonary vascular congestion - BNP is elevated - med neb with albuterol and ipratropium q.6 hours - IV cefepime 1 g b.i.d. and IV doxycycline 100 mg b.i.d. - IV Lasix drip at 6 microgram/hours - IV methylprednisolone 40 mg daily - Sputum c/s negative - Pulmonology on board - BAL was negative for gram stain and culture and pending fungal culture - Echo revealed ejection fraction 50-55% and RVSP 60 mm Hg - CPAP trial tomorrow AM # Paroxysmal atrial fibrillation with RVR and secondary hypercoagulable state [id number] score 5 - Continue metoprolol 25 mg b.i.d. and Eliquis 5 mg b.i.d. # DVT prophylaxis - Patient is on Eloquis Goal of care discussed with the family for more than 20 minutes full code Plan discussed with Dr. Francisco Plan discussed with: Patient, Other My Orders My Orders Orders - NIKIA DAWN Procedure Category Date Status Time Chest Xray 1 View XY 02/24/25 Taken 05:00 Lactulose Oral PHA 02/24/25 In Process 10:00 Dietary Evaluation Review Comments: 1. Disagree with current TF orders, change to Vital HP @ 40 ml/hr continuously 2. Provide free water flushes of 30 ml Q8 hrs (90 ml total); adjust PRN 3. Monitor BMP/lytes and replete to WNL 4. When appropriate for oral diet, recommend Cardiac diet as tolerated TF Provision: TF at goal to provide 960 ml total volume, 960 kcal (+958 kcal via propofol = 1918 kcal), 84 gm pro, 0 gm fiber, 107 gm CHO, 801 ml H20 (meets 100% est. kcal needs, 100% est. pro needs) Expected Outcomes/Goals: Improved nutritional status, hemodynamic stability. Date of Service: Feb 24, 2025 Billing Provider: ZEINA CARPIO MD Common Visit Codes: [id number] CARE 30-74 MIN NIKIA DAWN Feb 24, 2025 10:55 ZEINA CARPIO MD Feb 24, 2025 22:52
--- NOTE | 2025-02-24 11:48 | DVH ---
CHEST RADIOGRAPH Indication: ET and OG Tube Placement Confirmation Technique: Single frontal view of the chest was obtained COMPARISON: XY CHEST XRAY 1 VIEW on DOS: 02/23/25, XY CHEST PORTABLE on DOS: 02/22/25, XY CHEST PORTABL E on DOS: 02/21/25, XY CHEST XRAY 1 VIEW on DOS: 02/20/25, XY CHEST XRAY 1 VIEW on DOS: 02/20/25 FINDINGS: Lines and Tubes: Endotracheal tube terminates above the sejal. Enteric tube courses below the diaph ragm with tip in the region of the proximal stomach Lungs: Multifocal pneumonia throughout both lungs. Pleura: No effusion. No pneumothorax. Cardiomediastinal contours: Cardiomegaly Bones: Unremarkable IMPRESSION: 1. Multifocal pneumonia throughout both lungs 2. Lines and tubes as above. 3.
--- NOTE | 2025-02-24 23:17 | DVHPN2 ---
Progress Note - Dictate Date Seen: Feb 24, 2025 Medical Necessity Reason Pt with a Central, PICC or Fol: Yes The following are medically ne: Serrano Catheter Reason for serrano catheter: Strict I&O Subjective Patient seen and examined at bedside. Intubated on mechanical ventilator. Overnight events reviewed vital signs Vital Sign Date Time Temp Pulse Resp B/P (MAP) Pulse Ox O2 Delivery O2 Flow Rate FiO2 02/24/25 22:27 107 28 118/74 (89) 95 40 02/24/25 18:30 99.9 211.8 02/24/25 18:00 Mechanical Ventilator+ Total Intake and Output 02/23/25 02/23/25 02/24/25 15:00 23:00 07:00 Intake Total 409.537 ml 430.202 ml 473.035 ml Output Total 2000 ml 1150 ml Balance 409.537 ml -1569.798 ml -676.965 ml medications Current Medications Medications Dose Ordered Sig/Adolfo Route Start Time Stop Time Status Last Admin Dose Admin Nitroglycerin 0.4 mg Q5MINP PRN SL 02/19/25 15:15 Morphine Sulfate 2 mg Q30M PRN IV 02/19/25 15:15 02/19/25 21:24 2 MG Albuterol 2.5 mg Q6HR NEB 02/19/25 18:00 02/24/25 18:24 2.5 MG Ipratropium [place] 0.5 mg Q6HR NEB 02/19/25 18:00 02/24/25 18:24 0.5 MG Apixaban 5 mg BID PO 02/19/25 22:00 02/24/25 22:10 5 MG Midazolam HCl 50 ml @ 1 mls/hr Q24H IV 02/20/25 08:30 02/24/25 03:30 2 MLS/HR Norepinephrine Bitartrate 250 ml @ 3.75 mls/hr Q24H IV 02/20/25 09:45 02/22/25 02:21 3.75 MLS/HR Doxycycline Hyclate 100 ml @ 50 mls/hr Q12H IV 02/20/25 10:00 02/24/25 22:26 50 MLS/HR Methylprednisolone Sodium Succinate 40 mg DAILY IV 02/21/25 10:00 02/24/25 10:22 40 MG Fentanyl Citrate 250 ml @ 2.5 mls/hr Q24H IV 02/20/25 11:00 02/22/25 22:52 7.5 MLS/HR Cefepime HCl 50 ml @ 12.5 mls/hr Q12H IV 02/20/25 11:30 02/24/25 22:11 12.5 MLS/HR Enteral Nutritional Formula 1,000 ml 30ML/HR GT 02/21/25 10:15 02/21/25 20:39 1,000 ML Furosemide 100 mg/ Sodium Chloride 110 ml @ 6.6 mls/hr [id number] IV 02/21/25 11:00 02/24/25 16:20 6.6 MLS/HR Propofol 100 ml @ 5.181 mls/ hr [id number] IV 02/22/25 00:30 02/24/25 01:20 15.543 MLS/HR Phenylephrine HCl 250 ml @ 30 mls/hr Q8H20M IV 02/22/25 02:30 Vasopressin 20 units/Sodium Chloride 100 ml @ 9 mls/hr Q11H7M IV 02/22/25 02:30 02/23/25 06:50 9 MLS/HR Diagnostic Test (Pha) 1 strip ACHS 02/22/25 07:19 02/24/25 22:11 1 STRIP Insulin Human Regular ACHS SC 02/22/25 07:19 02/24/25 22:12 4 UNITS Dextrose 50 ml UD PRN IV 02/22/25 07:15 Dexmedetomidine HCl 400 mcg/ Dextrose 100 ml @ 8.87 mls/hr [id number] IV 02/22/25 17:30 02/24/25 22:27 8.87 MLS/HR Metoprolol Tartrate 50 mg BID PO 02/23/25 11:00 02/24/25 22:10 50 MG Zirconium Oxide 10 gm DAILY PO 02/23/25 22:00 02/23/25 21:53 10 GM Lactulose 30 ml DAILY PO 02/24/25 10:00 02/24/25 10:22 30 ML objective Gen.: Patient lying in bed in medical ICU. Intubated on mechanical ventilator. Head: Normocephalic, atraumatic. Eyes: PERRLA. Ears: Normal external anatomy. Throat: Endotracheal tube and orogastric tube in place. Neck: Supple, trachea midline. Chest: Transmitted breath sounds bilaterally. Decreased air entry bilaterally. No wheezing. Bibasilar crackles. Cardiovascular: Positive S1, positive S2. Regular rate and rhythm. Abdomen: Positive bowel sounds in all 4 quadrants. Soft, nontender, nondistended. : Serrano in place. Normal external genitalia. Rectal: Deferred. Skin: Warm, dry. Intact. Extremities: 2+ radial pulses bilaterally. No lower extremity edema. Neuro: Off sedation laboratory and microbiology Laboratory Tests 02/24/25 03:20 Test 02/24/25 03:20 Range/Units Serum Glucose 188 H 74-106 mg/dL Assessment/Plan Impression: Acute on chronic hypoxic respiratory failure Acute on chronic hypercarbic respiratory failure On mechanical ventilator Tracheobronchomalacia NSTEMI Pneumonia Gram-positive/Gram-negative pneumonia COPD Obstructive sleep apnea Morbid obesity, BMI 63.4 Paroxysmal atrial fibrillation Events: Remains on vent support AC mode w/ RR 28, Vt 450 mL, Peep 8, FIo2 40% ABG notable for alkalemia CXR reviewed; multifocal pneumonia throughout both lungs. Devices in place. Off sedation Off vasopressin, hemodynamically stable. Patient failed CPAP - developed tachycardia, AFib with RVR AFib - on Amiodarone drip Awaiting further Cardiology recommendations CPAP in AM with PS 12, PEEP 8 OK to increase PS to max 20 cmH2O to achieve tidal volume 400-500 mL. Continue antibiotics Continue bronchodilators Tube feeds for nutritional support Diurese to euvolemia w/ Lasix drip Monitor renal function due to Acute kidney injury. Monitor electrolytes. Supplement as necessary. Labs and imaging reviewed. Rest of plan as noted below. Plan: s/p intubation on mechanical ventilator AC mode w/ RR 28, Vt 450 mL, Peep 8, FIo2 40% Titrate FIO2 to keep O2 saturation 88-94%. VAP bundle Daily ABG and CXR while intubated. Off sedation Bronchodilators IV steroids Pressors if necessary for hemodynamic support. Titrate to keep MAP above 65 mmHg/SBP above 90 mmHg. Continue antibiotics. F/u cultures. F/u RML BAL Amio drip Cardio recs appreciated On Lasix drip for diuresis Monitor renal function due to Acute kidney injury. Monitor electrolytes. Supplement as necessary. Monitor ins/outs Nutritional support. Accu-Cheks, ISS. DVT prophylaxis- on Eliquis. Condition: Critical Prognosis: Poor given multiple comorbidities. Rest of plan per hospitalist and other consultants. A total of 35 minutes of critical care time was spent reviewing the patient record, examining the patient, making a diagnostic and therapeutic plan, discussing this plan with the medical personnel, following up on diagnostic studies and following the patient for clinical stability excluding any and all procedures. At least 50% of this time was spent in direct, ihlu-do-srid contact. Thank you Dr. Roa for allowing me to participate in this patient's care. Further recommendations will depend on patient's clinical course. Please do not hesitate to contact me if you have any questions or concerns. This medical document was created using an electronic medical record system with [employer] dictation system. Although this document has been carefully reviewed, there may still be some phonetic and typographical errors. These areas are purely typographical due to imperfections of the software programs, and do not reflect any compromise in the patient's medical care. Dietary Evaluation Review Comments: 1. Disagree with current TF orders, change to Vital HP @ 40 ml/hr continuously 2. Provide free water flushes of 30 ml Q8 hrs (90 ml total); adjust PRN 3. Monitor BMP/lytes and replete to WNL 4. When appropriate for oral diet, recommend Cardiac diet as tolerated TF Provision: TF at goal to provide 960 ml total volume, 960 kcal (+958 kcal via propofol = 1918 kcal), 84 gm pro, 0 gm fiber, 107 gm CHO, 801 ml H20 (meets 100% est. kcal needs, 100% est. pro needs) Expected Outcomes/Goals: Improved nutritional status, hemodynamic stability. Plan discussed with: Other (BETSEY Hinojosa) Critical Care Time(min): 35 RADHA BRANDT MD Feb 24, 2025 23:17
[2025-02-25] VITALS (107 sets, daily range): BP systolic 43–160; BP diastolic 24–97; PULSE 73–157; RESP 11–31; TEMP 97.9–100; O2SAT 91–100
[2025-02-25 03:36] LABS: Basophils # (auto) 0 10 ^3/uL (0-0.2); Eosinophils # (auto) 0 10 ^3/uL (0-0.8); Hematocrit 30.5 % (36.0-46.0); Hemoglobin 10.2 g/dL (12.2-16.2); Lymphocytes # (auto) 0.2 10 ^3/uL (0.4-5.4); Lymphocytes % (auto) 4.1 % (10.0-50.0); Mean Corpuscular Hemoglobin 31.1 pg (28.0-32.0); Mean Corpuscular Hgb Conc. 33.5 g/dL (32.0-36.0); Mean Corpuscular Volume 92.7 fL (80.0-100.0); Monocytes # (auto) 0.3 10 ^3/uL (0-1.3); Monocytes % (auto) 5.8 % (0.0-12.0); Neutrophils # (auto) 5.4 10 ^3/uL (1.6-8.6); Neutrophils % (auto) 90.1 % (37.0-80.0); Nucleated Red Blood Cells % 0.2 %; Platelet Count (auto) 100 10^3/uL (140-450); Red Cell Distribution Width 24.2 % (11.8-14.3)
[2025-02-25 03:51] LABS: Anion Gap 7 (5-15); Potassium 3.6 mmol/L (3.5-5.1)
[2025-02-25 03:53] LABS: Calcium 9.9 mg/dL (8.7-10.4)
[2025-02-25 03:58] LABS: BUN/Creatinine Ratio 28.6 (10.0-20.0)
[2025-02-25 04:07] LABS: Blood Urea Nitrogen 54 mg/dL (9-23); Carbon Dioxide 37 mmol/L (20-31); Chloride 90 mmol/L (98-107); Glucose 223 mg/dL (74-106); Sodium 134 mmol/L (136-145)
--- NOTE | 2025-02-25 04:43 | DVH ---
CHEST RADIOGRAPH Indication: pneumonia Technique: Single frontal view of the chest was obtained Comparison: XY CHEST XRAY 1 VIEW on DOS: 02/24/25 FINDINGS: Lines and Tubes: The endotracheal tube terminates 3.8 cm above the sejal. The enteric tube courses b elow the left hemidiaphragm and the tip extends outside the field of view. Left central venous cathet er not visualized. Lungs: Patient rotation limits evaluation. Bilateral airspace disease. Pleura: No effusion. No pneumothorax. Cardiomediastinal contours: Cardiomegaly. Bones: No acute osseous abnormality. IMPRESSION: 1. Rotation limits evaluation. Left central venous catheter not visualized and May have been removed. 2. Hazy bilateral airspace disease which may reflect multifocal pneumonia. 3. Cardiomegaly.
[2025-02-25 05:17] LABS: Anisocytosis Moderate; Platelet Estimate Decreased
[2025-02-25] MEDS: FUROSEMIDE INJECTION 10 ML ONE (06:50)
[2025-02-25 07:12] LABS: Base Excess 10.2 mmol/L (-2.0-3.0)
--- NOTE | 2025-02-25 10:18 | DVHPNRES ---
Progress Note Date Seen: Feb 25, 2025 Resident Creating Document: PILI AGLICIA Medical Necessity Reason Pt with a Central, PICC or Fol: Yes The following are medically ne: Serrano Catheter Reason for serrano catheter: Strict I&O Subjective Review of Systems Patient is 69 years old female with a past medical history of hypertension, type 2 diabetes mellitus, atrial fibrillation on Eliquis, CHF, COPD on [place] O2 2 L/min at home came to the ER with a complaint of bilateral leg swelling. Information was gathered from chart review and speaking to the family. As per patient patient has been having bilateral leg swelling for last 1 month which was getting worse. Patient also endorsed shortness of breath and chest pain that prompted this visit. Patient also reported productive cough with greenish sputum for the same duration according to the family She was admitted to [facility] 1-1/2 months ago for elevated potassium, anemia and elevated carbon dioxide and later diagnosed with arrhythmia. Lab workup revealed WBC 5.7, hemoglobin 10.1, BUN 124, sodium 129, potassium 6.5, anion gap 13, BUN 42, serum creatinine 2.32, lactic acid 0.7, calcium 9.8, Ambien 0.9, AST 31, ALT 16, alkaline phosphatase 137, troponin I 42>> 44 48, BNP 551, TSH 4.0, albumin 4.4. Urinalysis negative for UTI. CXR revealed pulmonary edema/Tuesday airspace disease. Doppler study of the lower extremity negative for DVT. On 02/21/2020 Echo 2D revealed LVEF 50-55% with moderately decreased RV function, Doming of the interventricular septum in systole highly suggestive of pulmonary hypertension. Right ventricular pressure overload. Mild MR, uxcbumgb-ay-[id number] TR, moderate pulmonary insufficiency, noted pulmonary hypertension. Moderate pericardial effusion. Patient had tracheostomy before during COVID infection around 2020 and had tracheostomy for 2 months patient had an episode of AFib with RVR on admission. [id number] score 5. P ost admission patient was retaining CO2 as per ABG patient was put on CPAP but later on patient became very confused and poorly responsive and patient was intubated 05/23/2025.. PMH-hypertension, type 2 diabetes mellitus, atrial fibrillation on Eliquis, CHF, COPD on [place] O2 2 L/min at home PSH- Allergy- NKDA Personal History/ Social History- lives with family, Nonsmoker, nonalcoholic and never tried any drugs Patient was intubated on 02/20/2025 Central line placed on 02/20/2025 Patient had bronchoscopy on 02/20/2025Left lung collapse due to mucous plugging, Mucous plugging from L1-L10. RML BAL performed CPAP trial done on 02/22/25-CPAP trial-patient's arrival to open her eyes, very weak On 02/23/2025 patient was placed on CPAP trial and patient went apneic Patient was seen today for clinical evaluation. Labs and chart reviewed Ordered cardiology consult acute heart failure with atrial fibrillation and rapid ventricular rate Ordered Gynecology and Obstetrics consult due to vaginal bleeding Pelvic Ultrasound and vaginal ultrasound-Unable to visualize uterus and both ovaries. On 02/21/2025-blood culture no growth BAL-report pending On 0 02/21/25-urine culture no growth MRSA screening negative Started metoprolol 25 b.i.d. On 02/20/2025 respiratory culture no growth Over last Couple of day patient had 4 failed CPAP trial. overnight BP was ranging from -BP 87-118 /51-67, pulse 77-98, 99.1-100.0 I/O- intake 1170, output 5300, negative balance 4129 Labs revealed PH 7.50, pCO2 46.5, PO2 70.3, bicarbonate 35.4 WBC 5.7> 0.2> 3.8> 5.0> 4.8> 2.9> 6.0> 6.0 Hemoglobin 10.2> 10.5> 9.0> 8.8> 10.1> 10.1> 9.2> 10.8> 10.2 Platelet 127> 128> 103>> 105>127> 117> 104> 150> 100 Sodium 129> 128> 131> 131> 132> 132> 132>134 Potassium 6.5> 5.7> 5.5> 5.3>> 4.7 4.7> 4.5> 4.0> 3.7>3.6 BUN 42>> 43> 45 >50> 52> 51> 53> 54 Serum creatinine 2.32> 2.57> 2.42> 2.06> 2.05> 2.09> 2.04> 1.97> 1.89 GFR 22> 20>> 21> 23 >26> 25> 26> 27>28 On 02/21/2020 Echo 2D revealed LVEF 50-55% with moderately decreased RV function, Doming of the interventricular septum in systole highly suggestive of pulmonary hypertension. Right ventricular pressure overload. IR, [id number]-zy-[id number] TR, moderate pulmonary insufficiency, noted pulmonary hypertension. Moderate pericardial effusion. Spoke to patient's Danae , viscous versus current medical condition, plan of care and answered his questions Objective vital signs Vital Sign Date Time Temp Pulse Resp B/P (MAP) Pulse Ox O2 Delivery O2 Flow Rate FiO2 02/25/25 09:39 95 22 110/74 (86) 98 40 02/25/25 06:00 Mechanical Ventilator+ 02/25/25 05:45 99.0 210.2 Total Intake and Output 02/24/25 02/24/25 02/25/25 15:00 23:00 07:00 Intake Total 365.19 ml 332.04 ml 464.54 ml Output Total 2000 ml 3300 ml Balance 365.19 ml -1667.96 ml -2835.46 ml medications Current Medications Medications Dose Ordered Sig/Adolfo Route Start Time Stop Time Status Last Admin Dose Admin Nitroglycerin 0.4 mg Q5MINP PRN SL 02/19/25 15:15 Morphine Sulfate 2 mg Q30M PRN IV 02/19/25 15:15 02/19/25 21:24 2 MG Albuterol 2.5 mg Q6HR NEB 02/19/25 18:00 02/25/25 06:50 2.5 MG Ipratropium [place] 0.5 mg Q6HR NEB 02/19/25 18:00 02/25/25 06:49 0.5 MG Apixaban 5 mg BID PO 02/19/25 22:00 02/24/25 22:10 5 MG Midazolam HCl 50 ml @ 1 mls/hr Q24H IV 02/20/25 08:30 02/24/25 03:30 2 MLS/HR Norepinephrine Bitartrate 250 ml @ 3.75 mls/hr Q24H IV 02/20/25 09:45 02/22/25 02:21 3.75 MLS/HR Doxycycline Hyclate 100 ml @ 50 mls/hr Q12H IV 02/20/25 10:00 02/25/25 09:08 50 MLS/HR Methylprednisolone Sodium Succinate 40 mg DAILY IV 02/21/25 10:00 02/25/25 09:09 40 MG Fentanyl Citrate 250 ml @ 2.5 mls/hr Q24H IV 02/20/25 11:00 02/22/25 22:52 7.5 MLS/HR Cefepime HCl 50 ml @ 12.5 mls/hr Q12H IV 02/20/25 11:30 02/24/25 22:11 12.5 MLS/HR Enteral Nutritional Formula 1,000 ml 30ML/HR GT 02/21/25 10:15 02/21/25 20:39 1,000 ML Furosemide 100 mg/ Sodium Chloride 110 ml @ 6.6 mls/hr [id number] IV 02/21/25 11:00 02/25/25 06:50 6.6 MLS/HR Propofol 100 ml @ 5.181 mls/ hr [id number] IV 02/22/25 00:30 02/24/25 01:20 15.543 MLS/HR Phenylephrine HCl 250 ml @ 30 mls/hr Q8H20M IV 02/22/25 02:30 Vasopressin 20 units/Sodium Chloride 100 ml @ 9 mls/hr Q11H7M IV 02/22/25 02:30 02/23/25 06:50 9 MLS/HR Diagnostic Test (Pha) 1 strip ACHS 02/22/25 07:19 02/25/25 06:29 1 STRIP Insulin Human Regular ACHS SC 02/22/25 07:19 02/25/25 06:32 6 UNITS Dextrose 50 ml UD PRN IV 02/22/25 07:15 Dexmedetomidine HCl 400 mcg/ Dextrose 100 ml @ 8.87 mls/hr [id number] IV 02/22/25 17:30 02/24/25 22:27 8.87 MLS/HR Metoprolol Tartrate 50 mg BID PO 02/23/25 11:00 02/25/25 09:09 50 MG Zirconium Oxide 10 gm DAILY PO 02/23/25 22:00 02/23/25 21:53 10 GM Lactulose 30 ml DAILY PO 02/24/25 10:00 02/25/25 09:08 30 ML Examination General examination- morbid obesity HEENT- PEERLA, no acute nasal discharge Cardiovascular- S1-S2 audible, rate and rhythm irregular Respiratory-bilateral lung crackles+ Gastrointestinal-nontender, bowel sound+. Nondistended, skin blister on the bilateral abdominal wall Musculoskeletal-no acute joint swelling or tenderness or redness Lower extremity- + leg edema bilateral Skin- bruise on the arms laboratory and microbiology Laboratory Tests 02/25/25 03:00 Test 02/25/25 03:00 Range/Units Serum Glucose 223 H 74-106 mg/dL Microbiology Date/Time Source Procedure Growth Status 02/21/25 11:22 Blood Blood Culture - Preliminary NO GROWTH AFTER 72 HOURS OF INCUBATION. Resulted 02/21/25 09:30 Nose MRSA Screen - Final Complete 02/21/25 09:30 Voided Urine Urine Culture - Final Complete 02/20/25 18:28 Bronchial Washings Gram Stain - Final Complete 02/20/25 18:28 Bronchial Washings Respiratory Culture - Final Complete Problem List/Assessment/Plan Problem List/Assessment/Plan Assessment and plan #Neurology -metabolic encephalopathy likely due acute hypoxic respiratory failure/acute hypercapnic respiratory failure/septic shock Patient on mechanical ventilation -continue current management #Cardiovascular -Septic shock AcuteHFpEF, EF 50-55% AF with RVR - NSTEMI Type2 -pericardial effusion Continue dialysis as prescribed #Respiratory -acute hypoxic respiratory failure Acute hypoxemic respiratory failure Acute mg positive BC Gram-negative -acute pulmonary edema -history of obstructive sleep apnea - continue antibiotic cefepime and doxycycline #Gastrointestinal -on PPI prophylaxis #Renal/genitourinary -AN on CKD likely due to VMN -avoid dehydration and nephrotoxic drugs #Hematology Secondary hypercoagulable state Moderate anemia -thrombocytopenia #Infectious disease Septic shock likely due to pneumonia Pneumonia Gram-positive versus Gram-negative #Metabolic or endocrine disorder -hyperkalemia corrected -morbid obesity, BMI 64.9 #Skin/elementary -skin discharged with the excoriation on the abdominal wall # Reproductive system -acute vaginal bleeding Central Line -left internal jugular-on 02/20/2025 ETT-intubated on 02/20/2025 Serrano's catheter Goals of care, Code status ; discussed with >25 minutes PUD prophylaxis: Pantoprazole DVT prophylaxis: SCD Plan discussed with Dr. Holley , nursing staff, Total time spent on patient evaluation, chart review, total time spent for critical care including mechanical ventilation excluding procedures 84 minute Plan discussed with: Patient, Spouse (RN), Daughter, Other (RN) Dietary Evaluation Review Comments: 1. Disagree with current TF orders, change to Vital HP @ 40 ml/hr continuously 2. Provide free water flushes of 30 ml Q8 hrs (90 ml total); adjust PRN 3. Monitor BMP/lytes and replete to WNL 4. When appropriate for oral diet, recommend Cardiac diet as tolerated TF Provision: TF at goal to provide 960 ml total volume, 960 kcal (+958 kcal via propofol = 1918 kcal), 84 gm pro, 0 gm fiber, 107 gm CHO, 801 ml H20 (meets 100% est. kcal needs, 100% est. pro needs) Expected Outcomes/Goals: Improved nutritional status, hemodynamic stability. Date of Service: Feb 25, 2025 Billing Provider: MARY LOU HOLLEY MD Common Visit Codes: 21259-[id number] CARE 30-74 MIN, 83046-[id number] CARE-EACH +30MIN PILI GALICIA RESIDENT Feb 25, 2025 10:18 MARY LOU HOLLEY MD Feb 26, 2025 16:20
[2025-02-25] MEDS ORDERED: FUROSEMIDE 40 MG/4 ML VIAL IV ONE (11:45)
[2025-02-25 12:04] LABS: Magnesium 2.1 mg/dL (1.6-2.6)
--- NOTE | 2025-02-25 12:24 | DVHINCON2 ---
Date Seen: Feb 25, 2025 Referring Physician MD Annabelle Reason for Consultation A-fib with RVR History of Present Illness This is a 69-year-old female who presented to the emergency room with a chief complaint of lower extremity edema. At time of assessment, the patient was found endotracheally intubated with a 40% FiO2, off sedation, off pressors, and on an amiodarone drip. Information obtained from records which indicate she presented with a chief complaint of progressive bilateral lower extremity edema associated with shortness of breath, a productive cough with white sputum, and unspecified chest pain. She was admitted dual [facility] approximately 1.5 months ago for hyperkalemia and elevated CO2 levels. Per and daughter over the phone primary mass communications professor is Dr. Coyne. A 12 lead electrocardiogram revealed an atrial fibrillation rhythm with rapid ventricular rate at 108 bpm. Serial troponin levels remained flat in the 40s ng/L. Significant medical history includes unspecified atrial fibrillation on Eliquis/Lopressor, congestive heart failure with HFpEF, hypertension, dyslipidemia, COPD with home O2 dependence, diabetes mellitus, and morbid obesity. Past Medical History Past medical history reviewed. No other significant than mentioned above. Past Surgical History Unknown past surgical history. Family History: FH: cancer Family History Unknown family history. Social History Unknown social history. Allergies: Coded Allergies: NO KNOWN ALLERGIES (Unverified , 02/19/25) Home Meds Reported Medications Spironolactone (Spironolactone) 25 Mg Tab, 1 TAB PO DAILY for 90 Days, #90 02/20/25 Estradiol Vaginal (Estradiol) 0.1 Mg/Gm Cre, 2 GRAMS VA TWICE WEEKLY for 70 Days, #42.5 02/20/25 Fluticasone Propionate (Nasal) (Fluticasone Propionate Na) 50 Mcg/Act Spr, 2 SPRAYS EACHNOSTRI DAILY for 30 Days, #16 02/20/25 Albuterol Sulfate (Albuterol Sulfate Hfa) 108 Mcg/Act Aer, 2 PUFF IN Q4HR PRN for 16 Days, #8.5 02/20/25 Benazepril Hcl (Benazepril Hcl) 20 Mg Tab, 1 TAB PO DAILY for 90 Days, #90 02/20/25 Senna (Senokot) 8.6 Mg Tab, 1 TAB PO QPM PRN for FOR CONSTIPATION for 30 Days, #30 02/20/25 Ferrous Sulfate (Ferosul) 325 Mg Tab, 1 TAB PO DAILY for 30 Days, #30 02/20/25 B-Complex W/ C & Folic Acid (Maryana-Jennifer Rx) Tab, 1 TAB PO DAILY for 30 Days, #30 02/20/25 Apixaban Base (ELIQUIS) 5 Mg Tab, 1 TAB PO BID for 30 Days, #60 02/20/25 Pantoprazole Sodium Sesquihydr (Protonix) 40 Mg Tab, 1 TAB PO DAILY for 30 Days, #30 02/20/25 Furosemide (Furosemide) 40 Mg Tab, 1 TAB PO BID for 30 Days, #60 02/20/25 Metoprolol Tartrate (LOPRESSOR TABLET) 50 Mg Tb, 1 TAB PO BID for 30 Days, #60 02/20/25 Diclofenac Sodium (Topical) (Voltaren Arthritis Pain) 1 % Gel, 2 GRAMS TOP QID PRN for 25 Days, #200 02/20/25 Hydrocodone-Acetaminophen (Hydrocodone Bitartrate/AC 10-325 mg) 1 Tab Tab, 1 TAB PO TID PRN for 30 Days, #90 02/20/25 Aspirin (Aspirin Low Dose) 81 Mg Chw, 1 TAB PO DAILY for 30 Days, #30 02/20/25 Cholecalciferol (VITAMIN D3) 2,000 Unit Tab, 1 TAB PO DAILY for 90 Days, #90 02/20/25 Home Meds Home medications reviewed. Current Medications Current Medications Medications (Trade) Dose Ordered Sig/Adolfo Route PRN Reason Start Time Stop Time Status Last Admin Pantoprazole Sodium (Protonix) 40 mg DAILY IV 02/26/25 10:00 UNV Review of Systems Constitutional: No symptom reported Ears, Nose, & Throat: No symptom reported Eyes: No symptom reported Neurological: No symptoms reported Pulmonary/Respiratory: SOB, productive cough Cardiovascular: BLE edema, chest pain Gastrointestinal: No symptom reported Genitourinary: No symptom reported Musculoskeletal: No symptom reported Skin: No symptom reported Psychiatric: No symptom reported Endocrine: No symptom reported Hemotologic/Lymphatic: No symptom reported Vital Signs Vital Signs Date Time Temp Pulse Resp B/P (MAP) Pulse Ox O2 Delivery O2 Flow Rate FiO2 02/25/25 09:39 95 22 110/74 (86) 98 40 02/25/25 06:00 Mechanical Ventilator+ 02/25/25 05:45 99.0 210.2 Physical Exam General Appearance: Off sedation following very simple commands. Endotracheally intubated 40% FiO2. Morbidly obese Head Exam: Normal inspection Neck Exam: Normal inspection. Normal alignment Pulmonary/Respiratory: Coarse bilateral breath sounds. Endotracheally intubated with a% FiO2, PEEP 8.0 Cardiovascular/Chest: Regular rate and rhythm. S1, S2. No murmurs. No JVD. Peripheral Pulses: 2+ Radial (R). 2+ Radial (L). 2+ Pedal (R). 2+ Pedal (L) Abdominal Exam: Normal bowel sounds. Soft. Ankle Exam: Negative ankle edema Lower extremities: Negative lower extremity edema Neuro/Mental Status: Off sedation following simple commands Thoughts/Psych: Unable to assess at this time Appearance: In no acute distress Skin Exam: Normal inspection. Normal color. Warm. Dry Labs/Diagnostic Data Labs Test 02/25/25 10:20 02/25/25 06:58 02/25/25 06:28 02/25/25 03:00 Range/Units Blood Gas Specimen Type Arterial Blood Gas Sample Site Left radial Blood Gas Patient Temperature 37.0 Arterial Blood Date Drawn [id number] Arterial Blood pH 7.500 H 7.350-7.450 Arterial Blood Partial Pressure CO2 46.5 H 32.0-45.0 mmHg Arterial Blood Partial Pressure O2 70.3 L 83.0-108.0 mmHg Arterial Blood HCO3 35.4 H 21.0-28.0 mmol/L Arterial Blood Oxygen Saturation 93.9 L 94.0-98.0 % Arterial Blood Base Excess 11.0 H -2.0-3.0 mmol/L Arterial Blood Oxyhemoglobin 93.4 L 94.0-98.0 % Arterial Blood Carboxyhemoglobin 0.3 L 0.5-1.5 % Arterial Blood Methemoglobin 0.2 0.0-1.5 % Rodrigo Test Modified Blood Gas Total Hemoglobin 11.40 L 12.0-16.0 g/dL Blood Gas Set Respiration Rate 22.0 Blood Gas Modality Vent - ac FiO2 % 40.0 Blood Gas Tidal Volume 450.0 Blood Gas PEEP or CPAP 8.0 Blood Gas Critical Value Read Back yes Blood Gas Notified Whom Blood Gas Notified Time [id number] Blood Gas Notified By dk martin POC Glucose 254 H 70-106 mg/dl White Blood Count 6.0 4.4-10.8 10^3/uL Red Blood Count 3.30 L 4.0-5.20 10^6/uL Hemoglobin 10.2 L 12.2-16.2 g/dL Hematocrit 30.5 L 36.0-46.0 % Mean Corpuscular Volume 92.7 80.0-100.0 fL Mean Corpuscular Hemoglobin 31.1 28.0-32.0 pg Mean Corpuscular Hemoglobin Concent 33.5 32.0-36.0 g/dL Red Cell Distribution Width 24.2 H 11.8-14.3 % Platelet Count 100 L 140-450 10^3/uL Mean Platelet Volume 8.3 6.9-10.8 fL Neutrophils (%) (Auto) 90.1 H 37.0-80.0 % Lymphocytes (%) (Auto) 4.1 L 10.0-50.0 % Monocytes (%) (Auto) 5.8 0.0-12.0 % Eosinophils (%) (Auto) 0.0 0.0-7.0 % Basophils (%) (Auto) 0.0 0.0-2.0 % Neutrophils # (Auto) 5.4 1.6-8.6 10 ^3/uL Lymphocytes # (Auto) 0.2 L 0.4-5.4 10 ^3/uL Monocytes # (Auto) 0.3 0-1.3 10 ^3/uL Eosinophils # (Auto) 0 0-0.8 10 ^3/uL Basophils # (Auto) 0 0-0.2 10 ^3/uL Nucleated Red Blood Cells 0.2 % Platelet Estimate Decreased Clumped Platelets Few Anisocytosis (manual) Moderate Sodium Level 134 L 136-145 mmol/L Potassium Level 3.6 3.5-5.1 mmol/L Chloride Level 90 L 98-107 mmol/L Carbon Dioxide Level 37 H 20-31 mmol/L Anion Gap 7 5-15 Blood Urea Nitrogen 54 H 9-23 mg/dL Creatinine 1.89 H 0.550-1.02 mg/dL Glomerular Filtration Rate Calc 28 >90 mL/min BUN/Creatinine Ratio 28.6 H 10.0-20.0 Serum Glucose 223 H 74-106 mg/dL Calcium Level 9.9 8.7-10.4 mg/dL Test 02/24/25 07:22 02/22/25 00:00 02/21/25 17:13 02/19/25 19:01 Range/Units Specimen Drawn By Gabby hicks Total Bilirubin 0.6 0.2-1.0 mg/dL Aspartate Amino Transferase (AST) 19 13-40 U/L Alanine Aminotransferase (ALT) 14 7-40 U/L Alkaline Phosphatase 110 46-116 U/L Total Protein 6.8 5.7-8.2 g/dL Albumin 3.8 3.2-4.8 g/dL Lactic Acid Level 0.7 0.4-2.0 mmol/L Urine Color Yellow Yellow Urine Clarity Turbid H Clear Urine pH 5.0 5.0-9.0 Urine Specific [place] 1.019 1.001-1.035 Urine Protein 2+ H Negative Urine Ketones Negative Negative Urine Blood 1+ H Negative /uL Urine Nitrite Negative Negative Urine Bilirubin Negative Negative Urine Urobilinogen Normal Negative mg/dL Urine Leukocyte Esterase Trace Negative /uL Urine RBC 6 0 - 4 /hpf Urine Microscopic WBC 14 H 0-5 /HPF Urine Squamous Epithelial Cells Few <5 /hpf Urine Bacteria None seen None Seen /hpf Urine Hyaline Casts Many 0 - 2 /lpf Urine Glucose Normal Normal mg/dL Test 02/19/25 15:21 02/19/25 11:28 Range/Units Troponin I High Sensitivity 48 *H </=34 ng/L Thyroid Stimulating Hormone (TSH) 6.93 H 0.55-4.78 uIU/mL Microbiology Date/Time Source Procedure Growth Status 02/21/25 11:22 Blood Blood Culture - Preliminary NO GROWTH AFTER 72 HOURS OF INCUBATION. Resulted 02/21/25 09:30 Nose MRSA Screen - Final Complete 02/21/25 09:30 Voided Urine Urine Culture - Final Complete 02/20/25 18:28 Bronchial Washings Gram Stain - Final Complete 02/20/25 18:28 Bronchial Washings Respiratory Culture - Final Complete Assessment Acute on chronic decompensated HFpEF with LVEF 50-55%, NYHA Class III Unspecified atrial fibrillation with rapid ventricular rate, on Eliquis therapy, now controlled rate Pulmonary hypertension with decreased RV function, [id number] degree Tricuspid regurgitation, [id number] degree Pericardial effusion, moderate degree Sepsis with multifocal pneumonia Acute on chronic hypoxic respiratory failure Acute kidney injury Vaginal bleed Borderline thrombocytopenia Morbid obesity Plan/Recommendation We will continue the following plan/recommendations (Dr. Bowie): * Transthoracic echocardiogram revealed EF 50-55% * Moderately decreased RV function. PAH at 60 mmHg. Moderate to severe TR. Moderate pericardial effusion * Repeat limited transthoracic echocardiogram for Pericardial Effusion reassessment * Antiarrhythmic therapy, continue amiodarone drip per pharmacy protocol * Rate control, held at this time given borderline BPs * DOAC therapy, Eliquis therapy held given reported vaginal bleed * [id number] Score: 5 points. HAS-BLED Score: 3 points * At high risk for CVA being off DOAC therapy * Nephrology consultation for AN. Pulmonology/ELECTR[employer] APPLIANCE SERVICER recommendations * Thyroid work-up & ABX therapy per primary care team * Obtain COVID-19 & Influenza swabs * DVT prophylaxis: SCDs Thank you for allowing us to participate in this patient's care. Please call if you have any questions or concerns. Critical care time: 45 min. This medical document was created using an electronic medical record system with voice recognition software and computerized dictation system. Although this document has been carefully reviewed, there might still be some phonetic and typographical errors. Occasional wrong-word or ``sound-alike substitutions may have occurred due to the inherent limitations of voice recognition software. These areas are purely typographical due to imperfections of the software programs and do not reflect any compromise in the patient's medical care. Please read the chart carefully and recognize, using context, where these substitutions have occurred. Plan discussed with: Spouse, Daughter, Other NYHA Physical activity limitations: Class3(Marked) ordinary (activity causes symtoms) Date of Service: Feb 25, 2025 Billing Provider: PAUL PASCAL Cardiology Common Codes: 46202-MMGUPQTU CARE 30-74 MIN PAUL PASCAL Feb 25, 2025 12:24
--- NOTE | 2025-02-25 12:41 | DVH ---
INDICATION: heavy vaginal bleeding TECHNIQUE: Multiple real-time grayscale transabdominal and transvaginal. sonographic images along wit h color and duplex Doppler of the uterus and ovaries were obtained. COMPARISON: None FINDINGS: Unable to visualize uterus and both ovaries. IMPRESSION: 1. Unable to visualize uterus and both ovaries.
[2025-02-25] MEDS: PANTOPRAZOLE 40 MG/10 ML VIAL INJ IV ONE (12:50)
[2025-02-25] MEDS: FUROSEMIDE 20 MG/2 ML VIAL IV SCH (12:51)
[2025-02-25] MEDS: POTASSIUM CHL 20MEQ/50ML 50 ML IV ONE (12:56)
--- NOTE | 2025-02-25 13:55 | DVHINCON2 ---
CHIEF COMPLAINT: Postmenopausal bleeding. HISTORY OF PRESENT ILLNESS: The patient is a 69-year-old 6 para 4-0-2-4, intubated female in ICU who has been having a lot of vaginal bleeding for the last week or so. The patient's family reports she has been having bleeding for couple of years but it has been heavy the last two days. The patient is intubated, cannot give any history. There is no report of whether the patient has had Pap smear. She is morbidly obese. She was brought in for shortness of breath, diagnosed with CHF and AFib. PAST MEDICAL HISTORY: AFib, CHF, COPD, diabetes, hypertension. PAST SURGICAL HISTORY: C-sections. SOCIAL HISTORY: Unremarkable. FAMILY HISTORY: Unremarkable. ALLERGIES: No known drug allergies. REVIEW OF SYSTEMS: Consistent with HPI. PHYSICAL EXAMINATION: GENERAL: The patient remains intubated. BREASTS: Symmetrical. No masses. ABDOMEN: Morbidly obese. PELVIC: Reveals some dark blood on the pad. I was unable to reach her cervix and uterus due to morbid obesity. Subsequently, pelvic ultrasound is ordered. EXTREMITIES: Bilateral clubbing and edema. IMPRESSION: * Postmenopausal bleeding, suspect cancer. In view of morbid obesity, the patient is very high risk for endometrial cancer. * Morbid obesity. * Atrial fibrillation, congestive heart failure, hypertension, diabetes, chronic obstructive pulmonary disease per history. RECOMMENDATION: * Pelvic ultrasound to assess endometrial thickness and assessment of cervix. * Hold any blood thinners. * Supportive care. Thank you very much for this consultation. DO CHRISTINA Mendez TID: [id number] RECEIPT: [id number]
[2025-02-25 14:11] LABS: COVID19 ANTIGEN SOFIA FIA NEGATIVE (NEGATIVE)
[2025-02-25 14:12] LABS: Rapid Influenza A Negative (Negative); Rapid Influenza B Negative (Negative)
--- NOTE | 2025-02-25 14:13 | ECG ---
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
[2025-02-25] MEDS: METOPROLOL TARTRATE 25 MG TAB PO ONE (15:00)
[2025-02-25 16:56] LABS: Free T4 (Free Thyroxine) 1.36 ng/dL (0.89-1.76); T3 Total 0.53 ng/mL (0.60-1.81)
[2025-02-25] MEDS ORDERED: FUROSEMIDE 40 MG/4 ML VIAL IV SCH (18:00)
[2025-02-25] MEDS: NOREPINEPHRINE 8 MG/250ML KIT 250 ML IV ONE (18:34)
[2025-02-25] MEDS: NOREPINEPHRINE 8 MG/250ML KIT 250 ML IV SCH (18:45)
[2025-02-25] MEDS: VASOPRESSIN 40 UNITS in D5W 5% 198 ML IV SCH (18:45)
[2025-02-25 19:21] LABS: Hematocrit 26.8 % (36.0-46.0); Hemoglobin 8.7 g/dL (12.2-16.2)
[2025-02-25] MEDS: VASOPRESSIN 20 UNIT/ML ONE ×2 (22:19→22:24)
[2025-02-25] MEDS: ATORVASTATIN 20 MG TAB PO SCH (22:39)
[2025-02-25] MEDS: METOPROLOL TARTRATE 25 MG TAB PO SCH (22:39)
[2025-02-26] VITALS (102 sets, daily range): BP systolic 77–154; BP diastolic 36–102; PULSE 69–145; RESP 12–30; TEMP 98–99.7; O2SAT 95–100
[2025-02-26 04:12] LABS: Alanine Aminotransferase 14 U/L (7-40); Alkaline Phosphatase 79 U/L (46-116); Anion Gap 7 (5-15); BUN/Creatinine Ratio 30.7 (10.0-20.0); Calcium 9.6 mg/dL (8.7-10.4)
[2025-02-26 04:13] LABS: Albumin 3.3 g/dL (3.2-4.8); Aspartate Aminotransferase 18 U/L (13-40); Bilirubin, Total 0.6 mg/dL (0.2-1.0)
[2025-02-26 04:14] LABS: Blood Urea Nitrogen 54 mg/dL (9-23); Carbon Dioxide 38 mmol/L (20-31); Chloride 89 mmol/L (98-107); Glucose 226 mg/dL (74-106); Sodium 134 mmol/L (136-145)
[2025-02-26 04:16] LABS: Basophils # (auto) 0 10 ^3/uL (0-0.2); Basophils % (auto) 0.2 % (0.0-2.0); Eosinophils # (auto) 0 10 ^3/uL (0-0.8); Eosinophils % (auto) 0.1 % (0.0-7.0); Hematocrit 27.9 % (36.0-46.0); Lymphocytes # (auto) 0.6 10 ^3/uL (0.4-5.4); Lymphocytes % (auto) 4.8 % (10.0-50.0); Mean Corpuscular Hemoglobin 29.8 pg (28.0-32.0); Mean Corpuscular Hgb Conc. 32.4 g/dL (32.0-36.0); Mean Corpuscular Volume 91.9 fL (80.0-100.0); Monocytes # (auto) 0.8 10 ^3/uL (0-1.3); Monocytes % (auto) 6.2 % (0.0-12.0); Neutrophils # (auto) 11.8 10 ^3/uL (1.6-8.6); Neutrophils % (auto) 88.7 % (37.0-80.0); Nucleated Red Blood Cells % 0.1 %; Platelet Count (auto) 99 10^3/uL (140-450); Red Blood Cells 3.03 10^6/uL (4.0-5.20); Red Cell Distribution Width 22.6 % (11.8-14.3); White Blood Cell 13.3 10^3/uL (4.4-10.8)
--- NOTE | 2025-02-26 05:13 | DVH ---
EXAM: XR Chest, 1 View CLINICAL INDICATION: PT INTUBATED TECHNIQUE: Frontal view of the chest. COMPARISON: XY CHEST XRAY 1 VIEW on DOS: 02/25/25, XY CHEST XRAY 1 VIEW on DOS: 02/24/25, XY CHEST XR AY 1 VIEW on DOS: 02/23/25, XY CHEST PORTABLE on DOS: 02/22/25, XY CHEST PORTABLE on DOS: 02/21/25 FINDINGS: LUNGS AND PLEURAL SPACES: Pleural effusions. HEART: Cardiomegaly with mild congestion. MEDIASTINUM: Unremarkable. Normal mediastinal contour. BONES/JOINTS: Unremarkable. No acute fracture. TUBES, LINES AND DEVICES: The endotracheal tube (ETT) is in satisfactory position. Enteric tube ti p in the stomach. OTHER FINDINGS: . IMPRESSION: Cardiomegaly with mild congestion.
[2025-02-26 05:15] LABS: Anisocytosis Slight; Stomatocytes Few
[2025-02-26 05:16] LABS: Platelet Estimate Decreased
[2025-02-26 05:17] LABS: Ovalocytes FEW
[2025-02-26] MEDS ORDERED: POTASSIUM CHL 20MEQ/100ML 100 ML IV SCH (07:15)
--- NOTE | 2025-02-26 07:40 | DVHSR ---
APPROVED REPORT EXAM: LIMITED Two-dimensional and M-mode echocardiogram. Blood Pressure: 137/94 mmHg INDICATION Limited for pericardial effusion re-assessment RISK FACTORS Obesity: Height: 5'5", Weight: 389 Mitral Valve MitralMitral Stenosis E/A ratio0.02D MVAcm2 Other Information Quality : Technically LimitedRhythm : Technically limited study due to body habitus, patient laying on right side. Limited repeat. Conclusion lvef 45-50% by visual estiate left atrium enlarged trivial effusion of pericardium adjacent to RV< mild adjacnet to LV, no HD compromise
--- NOTE | 2025-02-26 07:43 | DVHPNRES ---
Progress Note Date Seen: Feb 26, 2025 Resident Creating Document: PILI GALICIA Medical Necessity Reason Pt with a Central, PICC or Fol: Yes The following are medically ne: Serrano Catheter Reason for serrano catheter: Strict I&O Subjective Review of Systems Patient is 69 years old female with a past medical history of hypertension, type 2 diabetes mellitus, atrial fibrillation on Eliquis, CHF, COPD on [place] O2 2 L/min at home came to the ER with a complaint of bilateral leg swelling. Information was gathered from chart review and speaking to the family. As per patient patient has been having bilateral leg swelling for last 1 month which was getting worse. Patient also endorsed shortness of breath and chest pain that prompted this visit. Patient also reported productive cough with greenish sputum for the same duration according to the family She was admitted to [facility] 1-1/2 months ago for elevated potassium, anemia and elevated carbon dioxide and later diagnosed with arrhythmia. Lab workup revealed WBC 5.7, hemoglobin 10.1, BUN 124, sodium 129, potassium 6.5, anion gap 13, BUN 42, serum creatinine 2.32, lactic acid 0.7, calcium 9.8, Ambien 0.9, AST 31, ALT 16, alkaline phosphatase 137, troponin I 42>> 44> 48, BNP 551, TSH 4.0, albumin 4.4. Urinalysis negative for UTI. Negative for COVID-19 and influenza type A and B. CXR revealed pulmonary edema/Tuesday airspace disease. Doppler study of the lower extremity negative for DVT. On 02/21/2020 Echo 2D revealed LVEF 50-55% with moderately decreased RV function, Doming of the interventricular septum in systole highly suggestive of pulmonary hypertension. Right ventricular pressure overload. Mild MR, bwjdbuhm-mp-hsidac TR, moderate pulmonary insufficiency, noted pulmonary hypertension. Moderate pericardial effusion. Patient had tracheostomy before during COVID infection around 2020 and had tracheostomy for 2 months patient had an episode of AFib with RVR on admission. [id number] score 5. P ost admission patient was retaining CO2 as per ABG patient was put on CPAP but later on patient became very confused and poorly responsive and patient was intubated 05/23/2025.. PMH-hypertension, type 2 diabetes mellitus, atrial fibrillation on Eliquis, CHF, COPD on [place] O2 2 L/min at home PSH- Allergy- NKDA Personal History/ Social History- lives with family, Nonsmoker, nonalcoholic and never tried any drugs Patient was intubated on 02/20/2025 Central line placed on 02/20/2025 Patient had bronchoscopy on 02/20/2025Left lung collapse due to mucous plugging, Mucous plugging from L1-L10. RML BAL performed CPAP trial done on 02/22/25-CPAP trial-patient's arrival to open her eyes, very weak On 02/23/2025 patient was placed on CPAP trial and patient went apneic Patient was seen today for clinical evaluation. Labs and chart reviewed Patient had. CPAP trial toda on 02/27/2020 Discontinuing metoprolol, ordered digoxin overnight BP was ranging from -BP-75-147 /45-102, pulse 70-110, temperature- 98.3 99.3 I/O- intake 723, output 7300, negative balance 6576 Labs revealed PH-PH 7.52, PCO2 47.4, PO2 95.9, HCO3 38.3 WBC 5.7> 0.2> 3.8> 5.0> 4.8> 2.9> 6.0> 6.0> 13.3 Hemoglobin 10.2> 10.5> 9.0> 8.8> 10.1> 10.1> 9.2> 10.8> 10.2>> 8.7 9.0 Platelet 127> 128> 103>> 105>127> 117> 104> 150> 100> 99 Sodium 129> 128> 131> 131> 132> 132> 132>134> 134 Potassium 6.5> 5.7> 5.5> 5.3>> 4.7 4.7> 4.5> 4.0> 3.7>3.6> 3.0 BUN 42>> 43> 45 >50> 52> 51> 53> 54> 54 Serum creatinine 2.32> 2.57> 2.42> 2.06> 2.05> 2.09> 2.04> 1.97> 1.89> 1.76 GFR 22> 20>> 21> 23 >26> 25> 26> 27>28> 31 On 02/21/2020 Echo 2D revealed LVEF 50-55% with moderately decreased RV function, Doming of the interventricular septum in systole highly suggestive of pulmonary hypertension. Right ventricular pressure overload. IR, xihgtboh-vr-gowmad TR, moderate pulmonary insufficiency, noted pulmonary hypertension. Moderate pericardial effusion. Pelvic Ultrasound and vaginal ultrasound-Unable to visualize uterus and both ovaries. On 02/21/2025 urine CS no growth Blood CS no growth MRSA screening negative ON 02/20/2025 respiratory culture no growth Spoke to patient's Danae , viscous versus current medical condition, plan of care and answered his questions Objective vital signs Vital Sign Date Time Temp Pulse Resp B/P (MAP) Pulse Ox O2 Delivery O2 Flow Rate FiO2 02/26/25 07:15 75/45 02/26/25 06:46 81 22 98 02/26/25 06:24 40 02/26/25 06:00 Mechanical Ventilator+ 02/26/25 00:00 98.3 98.3 Total Intake and Output 02/25/25 02/25/25 02/26/25 15:00 23:00 07:00 Intake Total 322.18 ml 181.28 ml 187.5 ml Output Total 3600 ml 3700 ml Balance 322.18 ml -3418.72 ml -3512.5 ml medications Current Medications Medications Dose Ordered Sig/Adolfo Route Start Time Stop Time Status Last Admin Dose Admin Nitroglycerin 0.4 mg Q5MINP PRN SL 02/19/25 15:15 Morphine Sulfate 2 mg Q30M PRN IV 02/19/25 15:15 02/19/25 21:24 2 MG Ipratropium [place] 0.5 mg Q6HR NEB 02/19/25 18:00 02/26/25 06:23 0.5 MG Midazolam HCl 50 ml @ 1 mls/hr Q24H IV 02/20/25 08:30 02/24/25 03:30 2 MLS/HR Doxycycline Hyclate 100 ml @ 50 mls/hr Q12H IV 02/20/25 10:00 02/25/25 22:31 50 MLS/HR Fentanyl Citrate 250 ml @ 2.5 mls/hr Q24H IV 02/20/25 11:00 02/22/25 22:52 7.5 MLS/HR Cefepime HCl 50 ml @ 12.5 mls/hr Q12H IV 02/20/25 11:30 02/25/25 22:31 12.5 MLS/HR Propofol 100 ml @ 5.181 mls/ hr [id number] IV 02/22/25 00:30 02/24/25 01:20 15.543 MLS/HR Diagnostic Test (Pha) 1 strip ACHS 02/22/25 07:19 02/25/25 22:00 1 STRIP Insulin Human Regular ACHS SC 02/22/25 07:19 02/26/25 06:35 6 UNITS Dextrose 50 ml UD PRN IV 02/22/25 07:15 Dexmedetomidine HCl 400 mcg/ Dextrose 100 ml @ 8.87 mls/hr [id number] IV 02/22/25 17:30 02/25/25 23:47 8.87 MLS/HR Lactulose 30 ml DAILY PO 02/24/25 10:00 02/25/25 09:08 30 ML Pantoprazole Sodium 40 mg DAILY IV 02/26/25 10:00 Furosemide 20 mg DAILY IV 02/25/25 11:51 02/25/25 12:51 20 MG Atorvastatin Calcium 40 mg HS PO 02/25/25 22:00 02/25/25 22:39 40 MG Metoprolol Tartrate 25 mg BID PO 02/25/25 22:00 02/25/25 22:39 25 MG Enteral Nutritional Formula 1,000 ml 30ML/HR GT 02/25/25 14:30 Norepinephrine Bitartrate 250 ml @ 3.75 mls/hr Q24H IV 02/25/25 18:45 02/25/25 18:45 11.25 MLS/HR Vasopressin 40 units/Dextrose 200 ml @ 60 mls/hr Q3H20M IV 02/25/25 18:45 02/25/25 22:31 60 MLS/HR Potassium Chloride 100 ml @ 50 mls/hr Q2H IV 02/26/25 07:15 02/26/25 13:14 UNV Potassium Chloride 100 ml @ 50 mls/hr Q2H IV 02/26/25 07:15 02/26/25 13:14 UNV Examination General examination- morbid obesity HEENT- PEERLA, no acute nasal discharge Cardiovascular- S1-S2 audible, rate and rhythm irregular Respiratory-bilateral lung crackles+ Gastrointestinal-nontender, bowel sound+. Nondistended, skin blister on the bilateral abdominal wall Musculoskeletal-no acute joint swelling or tenderness or redness Lower extremity- + leg edema bilateral Skin- bruise on the arms laboratory and microbiology Laboratory Tests 02/26/25 03:33 Test 02/26/25 03:33 Range/Units Serum Glucose 226 H 74-106 mg/dL Microbiology Date/Time Source Procedure Growth Status 02/21/25 11:22 Blood Blood Culture - Preliminary NO GROWTH AFTER 72 HOURS OF INCUBATION. Resulted 02/21/25 09:30 Nose MRSA Screen - Final Complete 02/21/25 09:30 Voided Urine Urine Culture - Final Complete 02/20/25 18:28 Bronchial Washings Gram Stain - Final Complete 02/20/25 18:28 Bronchial Washings Respiratory Culture - Final Complete Problem List/Assessment/Plan Problem List/Assessment/Plan Assessment and plan #Neurology -metabolic encephalopathy likely due acute hypoxic respiratory failure/acute hypercapnic respiratory failure/septic shock Patient on mechanical ventilation -continue current management #Cardiovascular -Septic shock AcuteHFpEF, EF 50-55% AF with RVR - NSTEMI Type2 -pericardial effusion Continue lasix as prescribed -continue digoxin as per Cardiology recommendation #Respiratory -acute hypoxic respiratory failure Acute hypercapnic respiratory failure Acute pneumonia Gram-positive versus Gram-negative -acute pulmonary edema -history of obstructive sleep apnea - continue antibiotic cefepime and doxycycline #Gastrointestinal -on PPI prophylaxis #Renal/genitourinary -AN on CKD likely due to VMN -avoid dehydration and nephrotoxic drugs #Hematology Secondary hypercoagulable state Moderate anemia -thrombocytopenia #Infectious disease Septic shock likely due to pneumonia Pneumonia Gram-positive versus Gram-negative -continue cefepime and doxycycline as prescribed #Metabolic or endocrine disorder -hyperkalemia corrected -morbid obesity, BMI 64.9 #Skin/elementary -skin discharged with the excoriation on the abdominal wall # Reproductive system -acute vaginal bleeding -pelvic ultrasound and transvaginal ultrasound not well visualized Status post banding and obesity consult Central Line -left internal jugular-on 02/20/2025 ETT-intubated on 02/20/2025 Serrano's catheter Goals of care, Code status ; discussed with >25 minutes PUD prophylaxis: Pantoprazole DVT prophylaxis: SCD Plan discussed with Dr. Holley , nursing staff, Total time spent on patient evaluation, chart review, total time spent for critical care including mechanical ventilation including CPAP trial, excluding procedure 89 minute Plan discussed with: Spouse, Other (RN) My Orders My Orders Orders - BABU,MOHAMMED RESIDENT Procedure Category Date Status Time * Cardiology Consult CONS 02/25/25 Transmitted 11:01 * Spring Tacker Consultation CONS 02/25/25 Transmitted 11:01 Pantoprazole PHA 02/26/25 In Process (Protonix) 10:00 Sequential THEO 02/25/25 In Process Compression Device 11:29 Transvaginal Us Non Ob US 02/25/25 Resulted Norepinephrine 8 PHA 02/25/25 In Process Mg/250ml Kit 18:45 D5w 5% (Dextrose 5%) PHA 02/25/25 In Process W/Vasopressin 18:45 Chest Portable XY 02/26/25 Resulted 04:00 Abg W/ Co-Ox RT 02/26/25 Logged 05:25 Cpap Trial For Am ORDERS 02/26/25 Transmitted 06:31 Communication Order ORDERS 02/26/25 Transmitted 06:36 Potassium Chl PHA 02/26/25 Logged 20meq/100ml 07:15 Potassium Chl PHA 02/26/25 Logged 20meq/100ml 07:15 Dietary Evaluation Review Comments: 1. Disagree with current TF orders, change to Vital HP @ 40 ml/hr continuously 2. Provide free water flushes of 30 ml Q8 hrs (90 ml total); adjust PRN 3. Monitor BMP/lytes and replete to WNL 4. When appropriate for oral diet, recommend Cardiac diet as tolerated TF Provision: TF at goal to provide 960 ml total volume, 960 kcal (+958 kcal via propofol = 1918 kcal), 84 gm pro, 0 gm fiber, 107 gm CHO, 801 ml H20 (meets 100% est. kcal needs, 100% est. pro needs) Expected Outcomes/Goals: Improved nutritional status, hemodynamic stability. Date of Service: Feb 26, 2025 Billing Provider: MARY LOU HOLLEY MD Common Visit Codes: 25883-[id number] CARE 30-74 MIN, 83476-[id number] CARE-EACH +30MIN PILI GALICIA Feb 26, 2025 07:43 MARY LOU HOLLEY MD Mar 09, 2025 20:17
[2025-02-26 09:59] LABS: Base Excess 12.1 mmol/L (-2.0-3.0)
[2025-02-26] MEDS: PANTOPRAZOLE 40 MG/10 ML VIAL INJ IV SCH (10:58)
[2025-02-26] MEDS: POTASSIUM CHL 20MEQ/50ML 50 ML IV SCH (12:10)
--- NOTE | 2025-02-26 12:34 | DVHPN2 ---
Consult Progress Note Date Seen: Feb 26, 2025 Subjective Other Systems: Notified of A-fib with RVR during CPAP trial Objective vital signs Vital Sign Date Time Temp Pulse Resp B/P (MAP) Pulse Ox O2 Delivery O2 Flow Rate FiO2 02/26/25 12:11 106 119/71 02/26/25 12:07 16 99 40 02/26/25 10:00 Mechanical Ventilator+ 02/26/25 08:00 98.0 98.0 Total Intake and Output 02/25/25 02/25/25 02/26/25 15:00 23:00 07:00 Intake Total 322.18 ml 181.28 ml 216.78 ml Output Total 3600 ml 3700 ml Balance 322.18 ml -3418.72 ml -3483.22 ml medications Current Medications Medications Dose Ordered Sig/Adolfo Route Start Time Stop Time Status Last Admin Dose Admin Nitroglycerin 0.4 mg Q5MINP PRN SL 02/19/25 15:15 Morphine Sulfate 2 mg Q30M PRN IV 02/19/25 15:15 02/19/25 21:24 2 MG Ipratropium [place] 0.5 mg Q6HR NEB 02/19/25 18:00 02/26/25 12:13 0.5 MG Midazolam HCl 50 ml @ 1 mls/hr Q24H IV 02/20/25 08:30 02/24/25 03:30 2 MLS/HR Doxycycline Hyclate 100 ml @ 50 mls/hr Q12H IV 02/20/25 10:00 02/26/25 10:58 50 MLS/HR Fentanyl Citrate 250 ml @ 2.5 mls/hr Q24H IV 02/20/25 11:00 02/22/25 22:52 7.5 MLS/HR Cefepime HCl 50 ml @ 12.5 mls/hr Q12H IV 02/20/25 11:30 02/26/25 10:58 12.5 MLS/HR Propofol 100 ml @ 5.181 mls/ hr [id number] IV 02/22/25 00:30 02/24/25 01:20 15.543 MLS/HR Diagnostic Test (Pha) 1 strip ACHS 02/22/25 07:19 02/26/25 10:58 1 STRIP Insulin Human Regular ACHS SC 02/22/25 07:19 02/26/25 11:07 3 UNITS Dextrose 50 ml UD PRN IV 02/22/25 07:15 Dexmedetomidine HCl 400 mcg/ Dextrose 100 ml @ 8.87 mls/hr [id number] IV 02/22/25 17:30 02/25/25 23:47 8.87 MLS/HR Lactulose 30 ml DAILY PO 02/24/25 10:00 02/26/25 10:57 30 ML Pantoprazole Sodium 40 mg DAILY IV 02/26/25 10:00 02/26/25 10:58 40 MG Furosemide 20 mg DAILY IV 02/25/25 11:51 02/26/25 10:57 20 MG Atorvastatin Calcium 40 mg HS PO 02/25/25 22:00 02/25/25 22:39 40 MG Metoprolol Tartrate 25 mg BID PO 02/25/25 22:00 02/26/25 10:57 25 MG Enteral Nutritional Formula 1,000 ml 30ML/HR GT 02/25/25 14:30 Norepinephrine Bitartrate 250 ml @ 3.75 mls/hr Q24H IV 02/25/25 18:45 02/25/25 18:45 11.25 MLS/HR Vasopressin 40 units/Dextrose 200 ml @ 60 mls/hr Q3H20M IV 02/25/25 18:45 02/25/25 22:31 60 MLS/HR Potassium Chloride 50 ml @ 25 mls/hr Q2H IV 02/26/25 09:45 02/26/25 15:44 02/26/25 12:10 25 MLS/HR Acetaminophen/ Hydrocodone Bitart 1 tab Q4HP PRN PO 02/26/25 09:45 Examination: GENERAL:Abnormal (Morbidly obese), LUNGS:Abnormal (Endotracheally intubated 40% FiO2), CVS:Abnormal (A-fib controlled rate. On levophed drip), NEURO:Normal (Followd simple commands) laboratory and microbiology Laboratory Tests 02/26/25 03:33 Test 02/26/25 03:33 Range/Units Serum Glucose 226 H 74-106 mg/dL Problem List/Assessment/Plan Problem List/Assessment/Plan Acute on chronic decompensated HFpEF with LVEF 50-55%, NYHA Class III Unspecified atrial fibrillation with rapid ventricular rate, on Eliquis therapy, now controlled rate Pulmonary hypertension with decreased RV function, [id number] degree Tricuspid regurgitation, [id number] degree Pericardial effusion, resolved Sepsis with multifocal pneumonia Acute on chronic hypoxic respiratory failure Acute kidney injury Vaginal bleed Borderline thrombocytopenia Morbid obesity Plan/Recommendation (Dr. Bowie) * Transthoracic echocardiogram revealed EF 50-55% * Moderately decreased RV function. PAH at 60 mmHg. Moderate to severe TR. Moderate pericardial effusion * Antiarrhythmic therapy, continue amiodarone drip per pharmacy protocol * Rate control, discontinue metoprolol and initiate digoxin therapy including loading dose * DOAC therapy, Eliquis therapy held given reported vaginal bleed * [id number] Score: 5 points. 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 Please call if you have any questions or concerns. Critical care time: 45 min. This medical document was created using an electronic medical record system with voice recognition software and computerized dictation system. Although this document has been carefully reviewed, there might still be some phonetic and typographical errors. Occasional wrong-word or ``sound-alike substitutions may have occurred due to the inherent limitations of voice recognition software. These areas are purely typographical due to imperfections of the software programs and do not reflect any compromise in the patient's medical care. Please read the chart carefully and recognize, using context, where these substitutions have occurred. Plan discussed with: Patient, Spouse, Other Dietary Evaluation Review Comments: 1. Disagree with current TF orders, change to Vital HP @ 40 ml/hr continuously 2. Provide free water flushes of 30 ml Q8 hrs (90 ml total); adjust PRN 3. Monitor BMP/lytes and replete to WNL 4. When appropriate for oral diet, recommend Cardiac diet as tolerated TF Provision: TF at goal to provide 960 ml total volume, 960 kcal (+958 kcal via propofol = 1918 kcal), 84 gm pro, 0 gm fiber, 107 gm CHO, 801 ml H20 (meets 100% est. kcal needs, 100% est. pro needs) Expected Outcomes/Goals: Improved nutritional status, hemodynamic stability. Date of Service: Feb 26, 2025 Billing Provider: PAUL PASCAL Cardiology Common Codes: 52570-[id number] CARE 30-74 MIN PAUL PASCAL Feb 26, 2025 12:33
[2025-02-26] MEDS: HYDROcodone-ACET 10/325MG TAB PO PRN (12:53)
[2025-02-26] MEDS: DIGOXIN (250MCG/ML) 2 ML AMPULE IV ONE (12:53)
[2025-02-26] MEDS: Glucerna 1.2 Cal 1Liter BOTTLE GT SCH (15:51)
[2025-02-26 20:09] LABS: Anion Gap 6 (5-15); Calcium 9.6 mg/dL (8.7-10.4)
[2025-02-26 20:14] LABS: BUN/Creatinine Ratio 28.7 (10.0-20.0)
[2025-02-26 20:15] LABS: Carbon Dioxide 38 mmol/L (20-31); Chloride 90 mmol/L (98-107); Potassium 3.5 mmol/L (3.5-5.1); Sodium 134 mmol/L (136-145)
[2025-02-26 20:16] LABS: Blood Urea Nitrogen 51 mg/dL (9-23); Glucose 198 mg/dL (74-106)
[2025-02-26] MEDS: FUROSEMIDE 20 MG/2 ML VIAL IV SCH (21:11)
[2025-02-27] VITALS (108 sets, daily range): BP systolic 87–150; BP diastolic 42–83; PULSE 75–151; RESP 10–30; TEMP 98–99.2; O2SAT 94–100
[2025-02-27 04:27] LABS: Basophils # (auto) 0.1 10 ^3/uL (0-0.2); Basophils % (auto) 0.4 % (0.0-2.0); Eosinophils # (auto) 0.1 10 ^3/uL (0-0.8); Eosinophils % (auto) 0.8 % (0.0-7.0); Hematocrit 25.2 % (36.0-46.0); Hemoglobin 8.3 g/dL (12.2-16.2); Lymphocytes # (auto) 0.9 10 ^3/uL (0.4-5.4); Lymphocytes % (auto) 5.6 % (10.0-50.0); Mean Corpuscular Hemoglobin 30.5 pg (28.0-32.0); Mean Corpuscular Volume 92.6 fL (80.0-100.0); Monocytes % (auto) 6.5 % (0.0-12.0); Neutrophils # (auto) 13.7 10 ^3/uL (1.6-8.6); Neutrophils % (auto) 86.7 % (37.0-80.0); Nucleated Red Blood Cells % 0.1 %; Platelet Count (auto) 88 10^3/uL (140-450); Red Blood Cells 2.72 10^6/uL (4.0-5.20); White Blood Cell 15.8 10^3/uL (4.4-10.8)
[2025-02-27 04:50] LABS: Alanine Aminotransferase 13 U/L (7-40); Albumin 3.3 g/dL (3.2-4.8); Alkaline Phosphatase 76 U/L (46-116); Anion Gap 6 (5-15); Aspartate Aminotransferase 20 U/L (13-40); BUN/Creatinine Ratio 31.4 (10.0-20.0); Bilirubin, Total 0.6 mg/dL (0.2-1.0); Calcium 9.4 mg/dL (8.7-10.4); Magnesium 1.8 mg/dL (1.6-2.6); Sodium 136 mmol/L (136-145); Total Protein 5.8 g/dL (5.7-8.2)
[2025-02-27 04:56] LABS: Blood Urea Nitrogen 54 mg/dL (9-23); Carbon Dioxide 40 mmol/L (20-31); Chloride 90 mmol/L (98-107); Glucose 147 mg/dL (74-106); Potassium 3.1 mmol/L (3.5-5.1)
--- NOTE | 2025-02-27 05:11 | DVH ---
EXAM: XR Chest, 1 View CLINICAL INDICATION: PNA TECHNIQUE: Frontal view of the chest. COMPARISON: XY CHEST XRAY 1 VIEW on DOS: 04/05/24, XY CHEST PORTABLE on DOS: 04/03/24 FINDINGS: LUNGS AND PLEURAL SPACES: Bilateral pleural effusions. HEART: Cardiomegaly with mild congestion. MEDIASTINUM: Unremarkable. Normal mediastinal contour. BONES/JOINTS: Unremarkable. No acute fracture. TUBES, LINES AND DEVICES: The endotracheal tube (ETT) is in satisfactory position. Tip of the ente mariella tube can not be clearly visualized. OTHER FINDINGS: . .. IMPRESSION: 1. Cardiomegaly with mild congestion. 2. Bilateral pleural effusions.
[2025-02-27 06:04] LABS: Base Excess 10.7 mmol/L (-2.0-3.0)
--- NOTE | 2025-02-27 06:42 | DVHPNRES ---
Progress Note Date Seen: Feb 27, 2025 Resident Creating Document: PILI GALICIA Medical Necessity Reason Pt with a Central, PICC or Fol: Yes The following are medically ne: Serrano Catheter Reason for serrano catheter: Strict I&O Subjective Review of Systems Patient is 69 years old female with a past medical history of hypertension, type 2 diabetes mellitus, atrial fibrillation on Eliquis, CHF, COPD on [place] O2 2 L/min at home came to the ER with a complaint of bilateral leg swelling. Information was gathered from chart review and speaking to the family. As per patient patient has been having bilateral leg swelling for last 1 month which was getting worse. Patient also endorsed shortness of breath and chest pain that prompted this visit. Patient also reported productive cough with greenish sputum for the same duration according to the family She was admitted to [facility] 1-1/2 months ago for elevated potassium, anemia and elevated carbon dioxide and later diagnosed with arrhythmia. Lab workup revealed WBC 5.7, hemoglobin 10.1, BUN 124, sodium 129, potassium 6.5, anion gap 13, BUN 42, serum creatinine 2.32, lactic acid 0.7, calcium 9.8, Ambien 0.9, AST 31, ALT 16, alkaline phosphatase 137, troponin I 42>> 44> 48, BNP 551, TSH 4.0, albumin 4.4. Urinalysis negative for UTI. Negative for COVID-19 and influenza type A and B. CXR revealed pulmonary edema/Multifocal airspace disease. Doppler study of the lower extremity negative for DVT. On 02/21/2020 Echo 2D revealed LVEF 50-55% with moderately decreased RV function, Doming of the interventricular septum in systole highly suggestive of pulmonary hypertension. Right ventricular pressure overload. Mild MR, bdhzpzvl-cq-nvskty TR, moderate pulmonary insufficiency, noted pulmonary hypertension. Moderate pericardial effusion. Patient had tracheostomy before during COVID infection around 2020 and had tracheostomy for 2 months patient had an episode of AFib with RVR on admission. [id number] score 5. P ost admission patient was retaining CO2 as per ABG patient was put on CPAP but later on patient became very confused and poorly responsive and patient was intubated 05/23/2025.. PMH-hypertension, type 2 diabetes mellitus, atrial fibrillation on Eliquis, CHF, COPD on [place] O2 2 L/min at home PSH- Allergy- NKDA Personal History/ Social History- lives with family, Nonsmoker, nonalcoholic and never tried any drugs Patient was intubated on 02/20/2025 Central line placed on 02/20/2025 Patient had bronchoscopy on 02/20/2025Left lung collapse due to mucous plugging, Mucous plugging from L1-L10. RML BAL performed CPAP trial done on 02/22/25-CPAP trial-patient's arrival to open her eyes, very weak On 02/23/2025 patient was placed on CPAP trial and patient went apneic Patient was seen today for clinical evaluation. Labs and chart reviewed On 02/26/25 Patient had a failed CPAP trial at a.m., On 02/27/2025 patient had failed CPAP trial at a.m.. patient has no air leak, patient was put on methylprednisolone 60 mg q.8h. Discontinued cefepime Ordered acetazolamide 250 IV b.i.d. for 3 days Lovenox DVT prophylaxis was on hold due to thrombocytopenia overnight BP was ranging from -BP-94-126 /52-66, pulse 75-106, temperature-97.9-98.9 I/O- intake 1262, output 4250, negative balance 2987 Labs revealed PH-pH 7.52, pCO2 42.2, PO2 83.1, HCO3-34.4 WBC 5.7> 0.2> 3.8> 5.0> 4.8> 2.9> 6.0> 6.0> 13.3> 15.8 Hemoglobin 10.2> 10.5> 9.0> 8.8> 10.1> 10.1> 9.2> 10.8> 10.2>> 8.7 >9.0> 8.3 Platelets-124> 128> 103> 105> 127> 117> 104> 150> 100> 99> 88 Sodium-129> 128> 131> 132> 132>> 134 134> 136 Potassium 6.5> 5.7> 5.5> 5.3>> 4.7 4.7> 4.5> 4.0> 3.7>3.6> 3.0> 3.5> 3.1 supplimented BUN 42>> 43> 45 >50> 52> 51> 53> 54> 54> 54 Serum creatinine 2.32> 2.57> 2.42> 2.06> 2.05> 2.09> 2.04> 1.97> 1.89> 1.76> 1.72 GFR 22> 20>> 21> 23 >26> 25> 26> 27>28> 31> 32 On 02/21/2020 Echo 2D revealed LVEF 50-55% with moderately decreased RV function, Doming of the interventricular septum in systole highly suggestive of pulmonary hypertension. Right ventricular pressure overload. IR, [id number]-po-whluax TR, moderate pulmonary insufficiency, noted pulmonary hypertension. Moderate pericardial effusion. Pelvic Ultrasound and vaginal ultrasound-Unable to visualize uterus and both ovaries. On 02/21/2025 urine CS no growth Blood CS no growth MRSA screening negative On 02/20/2025 respiratory culture no growth Spoke to patient's Bipin mckeon , viscous versus current medical condition, plan of care and answered his question Objective vital signs Vital Sign Date Time Temp Pulse Resp B/P (MAP) Pulse Ox O2 Delivery O2 Flow Rate FiO2 02/27/25 06:30 79 22 94/49 (64) 99 02/27/25 06:00 98.8 98.8 02/27/25 06:00 Mechanical Ventilator+ 35 35 Total Intake and Output 02/26/25 02/26/25 02/27/25 14:59 22:59 06:59 Intake Total 412.99 ml 413.76 ml 436.02 ml Output Total 1750 ml 2500 ml Balance 412.99 ml -1336.24 ml -2063.98 ml medications Current Medications Medications Dose Ordered Sig/Adolfo Route Start Time Stop Time Status Last Admin Dose Admin Nitroglycerin 0.4 mg Q5MINP PRN SL 02/19/25 15:15 Morphine Sulfate 2 mg Q30M PRN IV 02/19/25 15:15 02/19/25 21:24 2 MG Ipratropium [place] 0.5 mg Q6HR NEB 02/19/25 18:00 02/27/25 05:45 0.5 MG Midazolam HCl 50 ml @ 1 mls/hr Q24H IV 02/20/25 08:30 02/24/25 03:30 2 MLS/HR Doxycycline Hyclate 100 ml @ 50 mls/hr Q12H IV 02/20/25 10:00 02/26/25 22:00 50 MLS/HR Fentanyl Citrate 250 ml @ 2.5 mls/hr Q24H IV 02/20/25 11:00 02/22/25 22:52 7.5 MLS/HR Cefepime HCl 50 ml @ 12.5 mls/hr Q12H IV 02/20/25 11:30 02/26/25 23:47 12.5 MLS/HR Propofol 100 ml @ 5.181 mls/ hr [id number] IV 02/22/25 00:30 02/24/25 01:20 15.543 MLS/HR Diagnostic Test (Pha) 1 strip ACHS 02/22/25 07:19 02/27/25 06:26 1 STRIP Insulin Human Regular ACHS SC 02/22/25 07:19 02/27/25 06:24 3 UNITS Dextrose 50 ml UD PRN IV 02/22/25 07:15 Dexmedetomidine HCl 400 mcg/ Dextrose 100 ml @ 8.87 mls/hr [id number] IV 02/22/25 17:30 02/27/25 03:33 8.87 MLS/HR Lactulose 30 ml DAILY PO 02/24/25 10:00 02/26/25 10:57 30 ML Pantoprazole Sodium 40 mg DAILY IV 02/26/25 10:00 02/26/25 10:58 40 MG Atorvastatin Calcium 40 mg HS PO 02/25/25 22:00 02/26/25 21:12 40 MG Enteral Nutritional Formula 1,000 ml 30ML/HR GT 02/25/25 14:30 02/26/25 15:51 1,000 ML Norepinephrine Bitartrate 250 ml @ 3.75 mls/hr Q24H IV 02/25/25 18:45 02/26/25 23:51 7.5 MLS/HR Acetaminophen/ Hydrocodone Bitart 1 tab Q4HP PRN PO 02/26/25 09:45 02/26/25 19:14 1 TAB Digoxin 0.125 mg EOD PO 02/28/25 10:00 Furosemide 20 mg BID IV 02/26/25 22:00 02/26/25 21:11 20 MG Examination General examination- morbid obesity HEENT- PEERLA, no acute nasal discharge Cardiovascular- S1-S2 audible, rate and rhythm irregular Respiratory-bilateral lung crackles+ Gastrointestinal-nontender, bowel sound+. Nondistended, skin blister on the bilateral abdominal wall Musculoskeletal-no acute joint swelling or tenderness or redness Lower extremity- + leg edema bilateral Skin- bruise on the arms laboratory and microbiology Laboratory Tests 02/27/25 03:35 Test 02/27/25 03:35 Range/Units Serum Glucose 147 H 74-106 mg/dL Microbiology Date/Time Source Procedure Growth Status 02/21/25 11:22 Blood Blood Culture - Final NO GROWTH AFTER 5 DAYS OF INCUBATION. Complete 02/21/25 09:30 Nose MRSA Screen - Final Complete 02/21/25 09:30 Voided Urine Urine Culture - Final Complete 02/20/25 18:28 Bronchial Washings Gram Stain - Final Complete 02/20/25 18:28 Bronchial Washings Respiratory Culture - Final Complete Problem List/Assessment/Plan Problem List/Assessment/Plan Assessment and plan #Neurology -metabolic encephalopathy likely due acute hypoxic respiratory failure/acute hypercapnic respiratory failure/septic shock Patient on mechanical ventilation -continue current management #Cardiovascular -Septic shock AcuteHFpEF, EF 50-55% AF with RVR - NSTEMI Type2 -pericardial effusion Continue lasix as prescribed -continue digoxin as per Cardiology recommendation #Respiratory -acute hypoxic respiratory failure Acute hypercapnic respiratory failure Acute pneumonia Gram-positive versus Gram-negative -acute pulmonary edema -history of obstructive sleep apnea - continue antibiotic cefepime and doxycycline -continue methylprednisolone 60 mg IV q.8h On 02/26/25 Patient had a failed CPAP trial at a.m., On 02/27/2025 patient had failed CPAP trial at a.m. #Gastrointestinal -on PPI prophylaxis #Renal/genitourinary -AN on CKD likely due to VMN -avoid dehydration and nephrotoxic drugs #Hematology Secondary hypercoagulable state Moderate anemia -thrombocytopenia #Infectious disease Septic shock likely due to pneumonia Pneumonia Gram-positive versus Gram-negative -continue cefepime and doxycycline as prescribed #Metabolic or endocrine disorder -hyperkalemia corrected -morbid obesity, BMI 64.9 #Skin/elementary -skin discharged with the excoriation on the abdominal wall # Reproductive system -acute vaginal bleeding -pelvic ultrasound and transvaginal ultrasound not well visualized Status post banding and obesity consult Central Line -left internal jugular-on 02/20/2025 ETT-intubated on 02/20/2025 Serrano's catheter Goals of care, Code status ; discussed with >25 minutes PUD prophylaxis: Pantoprazole DVT prophylaxis: SCD, no Lovenox as patient has thrombocytopenia Plan discussed with Dr. Asif , nursing staff, Total time spent on patient evaluation, chart review, total time spent for critical care including mechanical ventilation including CPAP trial, excluding procedure 87 minute Plan discussed with: Spouse, Other (RN) My Orders My Orders Orders - PILI GALICIA Procedure Category Date Status Time Hydrocodone-Acet PHA 02/26/25 In Process 10/325mg Tab ([place] 09:45 Abg W/ Co-Ox RT 02/26/25 Logged 09:40 Cpap Trial For Am ORDERS 02/26/25 Transmitted 11:05 Chest Portable XY 02/27/25 Resulted 04:00 Dietary Evaluation Review Comments: 1. Disagree with current TF orders, change to Vital HP @ 40 ml/hr continuously 2. Provide free water flushes of 30 ml Q8 hrs (90 ml total); adjust PRN 3. Monitor BMP/lytes and replete to WNL 4. When appropriate for oral diet, recommend Cardiac diet as tolerated TF Provision: TF at goal to provide 960 ml total volume, 960 kcal (+958 kcal via propofol = 1918 kcal), 84 gm pro, 0 gm fiber, 107 gm CHO, 801 ml H20 (meets 100% est. kcal needs, 100% est. pro needs) Expected Outcomes/Goals: Improved nutritional status, hemodynamic stability. Date of Service: Feb 27, 2025 Billing Provider: CARTER ASIF MD Common Visit Codes: NOT BILLABLE PILI GALICIA Feb 27, 2025 06:42 CARTER ASIF MD Mar 12, 2025 09:40
[2025-02-27] MEDS: POTASSIUM CHL 20MEQ/50ML 50 ML IV SCH ×2 (07:39→12:22)
[2025-02-27] MEDS: METOCLOPRAMIDE HCL 5MG/ml INJ 2ml VIAL IV ONE (09:09)
--- NOTE | 2025-02-27 09:20 | DVHPN2 ---
Consult Progress Note Date Seen: Feb 27, 2025 Subjective Other Systems: No overnight cardiac events reported Objective vital signs Vital Sign Date Time Temp Pulse Resp B/P (MAP) Pulse Ox O2 Delivery O2 Flow Rate FiO2 02/27/25 08:45 88 23 99/49 (66) 98 02/27/25 08:19 Mechanical Ventilator+ 35 35 02/27/25 08:00 98.9 98.9 Total Intake and Output 02/26/25 02/26/25 02/27/25 15:00 23:00 07:00 Intake Total 437.99 ml 442.51 ml 386.02 ml Output Total 1750 ml 2500 ml Balance 437.99 ml -1307.49 ml -2113.98 ml medications Current Medications Medications Dose Ordered Sig/Adolfo Route Start Time Stop Time Status Last Admin Dose Admin Nitroglycerin 0.4 mg Q5MINP PRN SL 02/19/25 15:15 Morphine Sulfate 2 mg Q30M PRN IV 02/19/25 15:15 02/19/25 21:24 2 MG Ipratropium [place] 0.5 mg Q6HR NEB 02/19/25 18:00 02/27/25 05:45 0.5 MG Midazolam HCl 50 ml @ 1 mls/hr Q24H IV 02/20/25 08:30 02/24/25 03:30 2 MLS/HR Doxycycline Hyclate 100 ml @ 50 mls/hr Q12H IV 02/20/25 10:00 02/27/25 09:00 50 MLS/HR Fentanyl Citrate 250 ml @ 2.5 mls/hr Q24H IV 02/20/25 11:00 02/22/25 22:52 7.5 MLS/HR Cefepime HCl 50 ml @ 12.5 mls/hr Q12H IV 02/20/25 11:30 02/26/25 23:47 12.5 MLS/HR Propofol 100 ml @ 5.181 mls/ hr [id number] IV 02/22/25 00:30 02/24/25 01:20 15.543 MLS/HR Diagnostic Test (Pha) 1 strip ACHS 02/22/25 07:19 02/27/25 07:39 1 STRIP Insulin Human Regular ACHS SC 02/22/25 07:19 02/27/25 06:24 3 UNITS Dextrose 50 ml UD PRN IV 02/22/25 07:15 Dexmedetomidine HCl 400 mcg/ Dextrose 100 ml @ 8.87 mls/hr [id number] IV 02/22/25 17:30 02/27/25 03:33 8.87 MLS/HR Pantoprazole Sodium 40 mg DAILY IV 02/26/25 10:00 02/27/25 07:39 40 MG Atorvastatin Calcium 40 mg HS PO 02/25/25 22:00 02/26/25 21:12 40 MG Enteral Nutritional Formula 1,000 ml 30ML/HR GT 02/25/25 14:30 02/26/25 15:51 1,000 ML Norepinephrine Bitartrate 250 ml @ 3.75 mls/hr Q24H IV 02/25/25 18:45 02/26/25 23:51 7.5 MLS/HR Acetaminophen/ Hydrocodone Bitart 1 tab Q4HP PRN PO 02/26/25 09:45 02/26/25 19:14 1 TAB Digoxin 0.125 mg EOD PO 02/28/25 10:00 Furosemide 20 mg BID IV 02/26/25 22:00 02/27/25 07:39 20 MG Potassium Chloride 50 ml @ 25 mls/hr Q2H IV 02/27/25 07:30 02/27/25 11:29 02/27/25 07:47 25 MLS/HR Lactulose 30 ml TID PO 02/27/25 14:00 Examination: LUNGS:Abnormal (Endotracheally intubated 35% FiO2 PEEP 8.0), CVS:Abnormal (A-fib controlled rate. On low dose levophed), NEURO:Normal (Awake, following commands) laboratory and microbiology Laboratory Tests 02/27/25 03:35 Test 02/27/25 03:35 Range/Units Serum Glucose 147 H 74-106 mg/dL Problem List/Assessment/Plan Problem List/Assessment/Plan Acute on chronic decompensated HFpEF with LVEF 50-55%, NYHA Class III Unspecified atrial fibrillation with rapid ventricular rate, on Eliquis therapy, now controlled rate Pulmonary hypertension with decreased RV function, [id number]-[id number] degree Tricuspid regurgitation, [id number] degree Pericardial effusion, resolved Sepsis with multifocal pneumonia Acute on chronic hypoxic respiratory failure Acute kidney injury Vaginal bleed Borderline thrombocytopenia Morbid obesity Plan/Recommendation (Dr. Bowie) * Transthoracic echocardiogram revealed EF 50-55% * Moderately decreased RV function. PAH at 60 mmHg. Moderate to severe TR. Moderate pericardial effusion * Antiarrhythmic therapy, continue amiodarone drip per pharmacy protocol * Rate control, digoxin therapy EOD * DOAC therapy, Eliquis therapy held given reported vaginal bleed/thrombocytopenia * [id number] Score: 5 points. HAS-BLED Score: 3 points * At high risk for CVA being off DOAC therapy * Replete electrolytes as necessary, K>4 and Mg>2 * Nephrology/Pulmonology/COMPUTING CONSULTANT recommendations * Thyroid work-up & ABX therapy per primary care team * DVT prophylaxis: SCDs Thank you for allowing us to participate in this patient's care. Please call if you have any questions or concerns. Critical care time: 30 min. This medical document was created using an electronic medical record system with voice recognition software and computerized dictation system. Although this document has been carefully reviewed, there might still be some phonetic and typographical errors. Occasional wrong-word or ``sound-alike substitutions may have occurred due to the inherent limitations of voice recognition software. These areas are purely typographical due to imperfections of the software programs and do not reflect any compromise in the patient's medical care. Please read the chart carefully and recognize, using context, where these substitutions have occurred. Plan discussed with: Patient, Other Dietary Evaluation Review Comments: 1. Disagree with current TF orders, change to Vital HP @ 40 ml/hr continuously 2. Provide free water flushes of 30 ml Q8 hrs (90 ml total); adjust PRN 3. Monitor BMP/lytes and replete to WNL 4. When appropriate for oral diet, recommend Cardiac diet as tolerated TF Provision: TF at goal to provide 960 ml total volume, 960 kcal (+958 kcal via propofol = 1918 kcal), 84 gm pro, 0 gm fiber, 107 gm CHO, 801 ml H20 (meets 100% est. kcal needs, 100% est. pro needs) Expected Outcomes/Goals: Improved nutritional status, hemodynamic stability. Date of Service: Feb 27, 2025 Billing Provider: PAUL PASCAL Cardiology Common Codes: 24068-[id number] CARE 30-74 MIN PAUL PASCAL Feb 27, 2025 09:20
[2025-02-27] MEDS: MAGNESIUM SULFATE 1GM/100ML 100 ML IV ONE (09:39)
[2025-02-27] MEDS ORDERED: ENOXAPARIN SOD 40 MG/0.4 ML SYRINGE SC SCH (11:23)
[2025-02-27] MEDS ORDERED: ENOXAPARIN SOD 40 MG/0.4 ML SYRINGE SC ONE (11:30)
[2025-02-27 11:47] LABS: Sodium 137 mmol/L (136-145)
[2025-02-27 11:48] LABS: Calcium 9.6 mg/dL (8.7-10.4)
[2025-02-27] MEDS: methylPREDNISolone SOD SUCC 125 MG/2 ML VL IV ONE (11:52)
[2025-02-27 11:53] LABS: Chloride 90 mmol/L (98-107); Potassium 3.3 mmol/L (3.5-5.1)
[2025-02-27 11:54] LABS: Anion Gap 6.99999 (5-15); Carbon Dioxide > 40 mmol/L (20-31)
[2025-02-27 11:55] LABS: BUN/Creatinine Ratio 29.9 (10.0-20.0); Blood Urea Nitrogen 53 mg/dL (9-23); Glucose 163 mg/dL (74-106)
[2025-02-27] MEDS: LACTULOSE 20Gm/30ML SOLN PO SCH (11:59)
[2025-02-27] MEDS: methylPREDNISolone SOD SUCC 125 MG/2 ML VL IV SCH (12:31)
[2025-02-27] MEDS: acetaZOLAMIDE SODIUM 500 MG VL IV ONE (12:42)
[2025-02-27] MEDS: METOCLOPRAMIDE HCL 5MG/ml INJ 2ml VIAL IV SCH (16:29)
[2025-02-27 16:39] LABS: Potassium 4.1 mmol/L (3.5-5.1); Sodium 137 mmol/L (136-145)
[2025-02-27 16:40] LABS: Anion Gap 6 (5-15); Calcium 9.7 mg/dL (8.7-10.4)
[2025-02-27 16:45] LABS: BUN/Creatinine Ratio 28.8 (10.0-20.0); Blood Urea Nitrogen 53 mg/dL (9-23); Carbon Dioxide 39 mmol/L (20-31); Chloride 92 mmol/L (98-107); Glucose 197 mg/dL (74-106)
[2025-02-27] MEDS: acetaZOLAMIDE SODIUM 500 MG VL IV SCH (22:06)
[2025-02-28] VITALS (118 sets, daily range): BP systolic 82–154; BP diastolic 46–104; PULSE 96–147; RESP 15–37; TEMP 98.1–99.3; O2SAT 84–99
[2025-02-28 03:59] LABS: Basophils # (auto) 0 10 ^3/uL (0-0.2); Eosinophils # (auto) 0 10 ^3/uL (0-0.8); Hemoglobin 8.2 g/dL (12.2-16.2); Lymphocytes # (auto) 0.2 10 ^3/uL (0.4-5.4); Mean Corpuscular Hgb Conc. 32.3 g/dL (32.0-36.0); Nucleated Red Blood Cells % 0.1 %; Platelet Count (auto) 71 10^3/uL (140-450); Red Cell Distribution Width 21.9 % (11.8-14.3); White Blood Cell 6.1 10^3/uL (4.4-10.8)
[2025-02-28 04:02] LABS: Basophils % (auto) 0.1 % (0.0-2.0); Hematocrit 25.3 % (36.0-46.0); Mean Corpuscular Hemoglobin 30.3 pg (28.0-32.0); Mean Corpuscular Volume 93.8 fL (80.0-100.0); Monocytes # (auto) 0.2 10 ^3/uL (0-1.3); Neutrophils # (auto) 5.6 10 ^3/uL (1.6-8.6); Neutrophils % (auto) 92.9 % (37.0-80.0); Red Blood Cells 2.69 10^6/uL (4.0-5.20)
[2025-02-28 04:12] LABS: Alanine Aminotransferase 21 U/L (7-40); Albumin 3.4 g/dL (3.2-4.8); Alkaline Phosphatase 108 U/L (46-116); Anion Gap 6 (5-15); Aspartate Aminotransferase 28 U/L (13-40); BUN/Creatinine Ratio 27.8 (10.0-20.0); Calcium 9.5 mg/dL (8.7-10.4); Sodium 138 mmol/L (136-145)
[2025-02-28 04:13] LABS: Bilirubin, Total 0.7 mg/dL (0.2-1.0)
[2025-02-28 04:30] LABS: Blood Urea Nitrogen 55 mg/dL (9-23); Carbon Dioxide 36 mmol/L (20-31); Chloride 96 mmol/L (98-107); Glucose 177 mg/dL (74-106); Potassium 3.2 mmol/L (3.5-5.1)
[2025-02-28] MEDS: POTASSIUM CHL 20MEQ/100ML 100 ML IV ONE (05:15)
[2025-02-28 05:23] LABS: Anisocytosis Slight; Stomatocytes Few
[2025-02-28 05:24] LABS: Platelet Estimate Decreased
--- NOTE | 2025-02-28 05:45 | DVH ---
CHEST RADIOGRAPH Indication: CHF Technique: Single frontal view of the chest was obtained Comparison: XY CHEST PORTABLE on DOS: 02/27/25 FINDINGS: Lines and Tubes: The endotracheal tube terminates 4.1 cm sejal left central venous catheter terminat es in the superior vena cava. Lungs: Mild hazy bilateral prominence. Left basilar opacities. Pleura: Left pleural effusion. Improved right pleural effusion. No pneumothorax. Cardiomediastinal contours: Cardiomegaly. Bones: No acute osseous abnormality. IMPRESSION: 1. Pulmonary congestion. Improved right pleural effusion. 2. Cardiomegaly.
--- NOTE | 2025-02-28 07:05 | DVHPNRES ---
Progress Note Date Seen: Feb 28, 2025 Resident Creating Document: PILI GALICIA Medical Necessity Reason Pt with a Central, PICC or Fol: Yes The following are medically ne: Serrano Catheter Reason for serrano catheter: Strict I&O Subjective Review of Systems Patient is 69 years old female with a past medical history of hypertension, type 2 diabetes mellitus, atrial fibrillation on Eliquis, CHF, COPD on [place] O2 2 L/min at home came to the ER with a complaint of bilateral leg swelling. Information was gathered from chart review and speaking to the family. As per patient patient has been having bilateral leg swelling for last 1 month which was getting worse. Patient also endorsed shortness of breath and chest pain that prompted this visit. Patient also reported productive cough with greenish sputum for the same duration according to the family She was admitted to [facility] 1-1/2 months ago for elevated potassium, anemia and elevated carbon dioxide and later diagnosed with arrhythmia. Lab workup revealed WBC 5.7, hemoglobin 10.1, BUN 124, sodium 129, potassium 6.5, anion gap 13, BUN 42, serum creatinine 2.32, lactic acid 0.7, calcium 9.8, Ambien 0.9, AST 31, ALT 16, alkaline phosphatase 137, troponin I 42>> 44> 48, BNP 551, TSH 4.0, albumin 4.4. Urinalysis negative for UTI. Negative for COVID-19 and influenza type A and B. CXR revealed pulmonary edema/Multifocal airspace disease. Doppler study of the lower extremity negative for DVT. On 02/21/2020 Echo 2D revealed LVEF 50-55% with moderately decreased RV function, Doming of the interventricular septum in systole highly suggestive of pulmonary hypertension. Right ventricular pressure overload. Mild MR, rhtqjhwi-vq-nynxsg TR, moderate pulmonary insufficiency, noted pulmonary hypertension. Moderate pericardial effusion. patient had an episode of AFib with RVR on admission. [id number] score 5. Post admission patient was retaining CO2 as per ABG patient was put on CPAP but later on patient became very confused and poorly responsive and patient was intubated 05/23/2025.Central line placed on 02/20/2025. Patient had bronchoscopy on 02/20/2025Left lung collapse due to mucous plugging, Mucous plugging from L1- L10. RML BAL performed . CPAP trial done on 02/22/25-CPAP trial-patient's arrival to open her eyes, very weak. On 02/23/2025 patient was placed on CPAP trial and patient went apneic. Post admission patient had several episodes of vaginal bleeding. Patient was seen by hotel clerk. Ultrasound of the pelvis and transvaginal ultrasound was nonsignificant because of the patient's body status. On 02/26/25 Patient had a failed CPAP trial at a.m. On 02/27/2025 patient had failed CPAP trial at a.m.. patient has no air leak, Lovenox DVT prophylaxis was on hold due to thrombocytopenia. On 02/28/2025-following a CPAP trial Patient was extubated today at a.m. after extubation patient was doing well for short period of time then patient started having some stridor. Methylprednisolone stat 60 mg was given also breathing treatment with racemic was given as well. On 02/21/2025 urine CS no growth, Blood CS no growth, MRSA screening negative. On 02/20/2025 respiratory culture no growth. Patient is being followed by Cardiology for atrial fibrillation. Patient on digoxin. Plan is to add beta tia with a stable BP. Patient on Levophed for hypotension. Once the blood pressure is stable without a vasopressor support we can restart metoprolol. Patient on IV antibiotic doxycycline. Patient had tracheostomy before during COVID infection around 2020 and had tracheostomy for 2 months PMH-hypertension, type 2 diabetes mellitus, atrial fibrillation on Eliquis, CHF, COPD on [place] O2 2 L/min at home PSH- Allergy- NKDA Personal History/ Social History- lives with family, Nonsmoker, nonalcoholic and never tried any drugs Patient was intubated on 02/20/2025 Central line placed on 02/20/2025 Patient had bronchoscopy on 02/20/2025Left lung collapse due to mucous plugging, Mucous plugging from L1-L10. RML BAL performed CPAP trial done on 02/22/25-CPAP trial-patient's arrival to open her eyes, very weak On 02/23/2025 patient was placed on CPAP trial and patient went apneic Patient was seen today for clinical evaluation. Labs and chart reviewed On 02/26/25 Patient had a failed CPAP trial at a.m., On 02/27/2025 patient had failed CPAP trial at a.m.. patient has no air leak, Lovenox DVT prophylaxis was on hold due to thrombocytopenia On 02/28/2025-following a CPAP trial Patient was extubated today at a.m. after extubation patient was doing well for short period of time then patient started having some stridor. Methylprednisolone stat 60 mg was given also breathing treatment with racemic was given as well Dr. Asif has been informed, waiting for response overnight BP was ranging from -BP -82- 124 /55-67, pulse 98-135, temperature-98.0-99.7 I/O- intake 3, output 4150, negative balance 2696 Labs revealed On 02/28/2025 CXR pulmonary congestion, improved right pleural effusion, cardiomegaly ABG on 02/28/2025-pH 7.46, pCO2 49.8, PO2 67.2, HC03 35.1 WBC 5.7> 0.2> 3.8> 5.0> 4.8> 2.9> 6.0> 6.0> 13.3> 15.8> 6.1 Hemoglobin 10.2> 10.5> 9.0> 8.8> 10.1> 10.1> 9.2> 10.8> 10.2>> 8.7 >9.0> 8.3> 8.2 Platelets-124> 128> 103> 105> 127> 117> 104> 150> 100> 99> 88> 71 Sodium-129> 128> 131> 132> 132>> 134 134> 136> 138 Potassium 6.5> 5.7> 5.5> 5.3>> 4.7 4.7> 4.5> 4.0> 3.7>3.6> 3.0> 3.5> 3.1> 4.1> 3.2-supplemented BUN 42>> 43> 45 >50> 52> 51> 53> 54> 54> 54> 55 Serum creatinine 2.32> 2.57> 2.42> 2.06> 2.05> 2.09> 2.04> 1.97> 1.89> 1.76> 1.72> 1.84 1.98 GFR 22> 20>> 21> 23 >26> 25> 26> 27>28> 31> 32> 27 On 02/21/2020 Echo 2D revealed LVEF 50-55% with moderately decreased RV function, Doming of the interventricular septum in systole highly suggestive of pulmonary hypertension. Right ventricular pressure overload. IR, rfenqjwd-va-omahcn TR, moderate pulmonary insufficiency, noted pulmonary hypertension. Moderate pericardial effusion. Pelvic Ultrasound and vaginal ultrasound-Unable to visualize uterus and both ovaries. On 02/21/2025 urine CS no growth Blood CS no growth MRSA screening negative On 02/20/2025 respiratory culture no growth Spoke to patient's Bipin mckeon , viscous versus current medical condition, plan of care and answered his question Objective vital signs Vital Sign Date Time Temp Pulse Resp B/P (MAP) Pulse Ox O2 Delivery O2 Flow Rate FiO2 02/28/25 06:45 106 22 111/60 (77) 97 02/28/25 06:00 35 02/28/25 06:00 Mechanical Ventilator+ 02/28/25 04:00 98.1 98.1 Total Intake and Output 02/27/25 02/27/25 02/28/25 15:00 23:00 07:00 Intake Total 603.795 ml 343.63 ml 472.87 ml Output Total 2200 ml 1950 ml Balance 603.795 ml -1856.37 ml -1477.13 ml medications Current Medications Medications Dose Ordered Sig/Adolfo Route Start Time Stop Time Status Last Admin Dose Admin Nitroglycerin 0.4 mg Q5MINP PRN SL 02/19/25 15:15 Morphine Sulfate 2 mg Q30M PRN IV 02/19/25 15:15 02/19/25 21:24 2 MG Ipratropium [place] 0.5 mg Q6HR NEB 02/19/25 18:00 02/28/25 00:04 0.5 MG Midazolam HCl 50 ml @ 1 mls/hr Q24H IV 02/20/25 08:30 02/24/25 03:30 2 MLS/HR Doxycycline Hyclate 100 ml @ 50 mls/hr Q12H IV 02/20/25 10:00 02/27/25 22:09 50 MLS/HR Fentanyl Citrate 250 ml @ 2.5 mls/hr Q24H IV 02/20/25 11:00 02/27/25 12:13 2.5 MLS/HR Propofol 100 ml @ 5.181 mls/ hr [id number] IV 02/22/25 00:30 02/24/25 01:20 15.543 MLS/HR Diagnostic Test (Pha) 1 strip ACHS 02/22/25 07:19 02/28/25 06:30 1 STRIP Insulin Human Regular ACHS SC 02/22/25 07:19 02/28/25 06:27 3 UNITS Dextrose 50 ml UD PRN IV 02/22/25 07:15 Dexmedetomidine HCl 400 mcg/ Dextrose 100 ml @ 8.87 mls/hr [id number] IV 02/22/25 17:30 02/27/25 03:33 8.87 MLS/HR Pantoprazole Sodium 40 mg DAILY IV 02/26/25 10:00 02/27/25 07:39 40 MG Atorvastatin Calcium 40 mg HS PO 02/25/25 22:00 02/27/25 22:09 40 MG Enteral Nutritional Formula 1,000 ml 30ML/HR GT 02/25/25 14:30 02/26/25 15:51 1,000 ML Norepinephrine Bitartrate 250 ml @ 3.75 mls/hr Q24H IV 02/25/25 18:45 02/26/25 23:51 7.5 MLS/HR Acetaminophen/ Hydrocodone Bitart 1 tab Q4HP PRN PO 02/26/25 09:45 02/26/25 19:14 1 TAB Digoxin 0.125 mg EOD PO 02/28/25 10:00 Furosemide 20 mg BID IV 02/26/25 22:00 02/27/25 22:06 20 MG Lactulose 30 ml TID PO 02/27/25 14:00 02/28/25 05:52 30 ML Methylprednisolone Sodium Succinate 60 mg Q8HR IV 02/27/25 14:00 02/28/25 05:52 60 MG Enoxaparin Sodium 40 mg DAILY SC 02/27/25 11:23 Hold Acetazolamide Sodium 250 mg Q12HR IV 02/27/25 22:00 03/02/25 21:59 02/27/25 22:06 250 MG Metoclopramide HCl 5 mg Q6HR IV 02/27/25 18:00 02/28/25 05:52 5 MG Examination General examination- morbid obesity HEENT- PEERLA, no acute nasal discharge Cardiovascular- S1-S2 audible, rate and rhythm irregular Respiratory-bilateral lung crackles+ Gastrointestinal-nontender, bowel sound+. Nondistended, skin blister on the bilateral abdominal wall Musculoskeletal-no acute joint swelling or tenderness or redness Lower extremity- + leg edema bilateral Skin- bruise on the arms laboratory and microbiology Laboratory Tests 02/28/25 03:40 Test 02/28/25 03:40 Range/Units Serum Glucose 177 H 74-106 mg/dL Microbiology Date/Time Source Procedure Growth Status 02/21/25 11:22 Blood Blood Culture - Final NO GROWTH AFTER 5 DAYS OF INCUBATION. Complete 02/21/25 09:30 Nose MRSA Screen - Final Complete 02/21/25 09:30 Voided Urine Urine Culture - Final Complete 02/20/25 18:28 Bronchial Washings Gram Stain - Final Complete 02/20/25 18:28 Bronchial Washings Respiratory Culture - Final Complete Problem List/Assessment/Plan Problem List/Assessment/Plan Assessment and plan #Neurology -metabolic encephalopathy likely due acute hypoxic respiratory failure/acute hypercapnic respiratory failure/septic shock -patient was extubated on 02/28/2025 -continue current management #Cardiovascular -Septic shock AcuteHFpEF, EF 50-55% AF with RVR - NSTEMI Type2 -pericardial effusion Continue lasix as prescribed -continue digoxin as per Cardiology recommendation #Respiratory -acute hypoxic respiratory failure Acute hypercapnic respiratory failure Acute pneumonia Gram-positive versus Gram-negative -acute pulmonary edema -history of obstructive sleep apnea -stridor-methylprednisolone and racemic treatment was given - continue antibiotic cefepime and doxycycline -continue methylprednisolone 60 mg IV q.8h On 02/26/25 Patient had a failed CPAP trial at a.m., On 02/27/2025 patient had failed CPAP trial at a.m. #Gastrointestinal -on PPI prophylaxis #Renal/genitourinary -AN on CKD likely due to VMN -avoid dehydration and nephrotoxic drugs #Hematology Secondary hypercoagulable state Moderate anemia -thrombocytopenia #Infectious disease Septic shock likely due to pneumonia Pneumonia Gram-positive versus Gram-negative -continue cefepime and doxycycline as prescribed #Metabolic or endocrine disorder -hyperkalemia corrected -morbid obesity, BMI 64.9 #Skin/elementary -skin discharged with the excoriation on the abdominal wall # Reproductive system -acute vaginal bleeding -pelvic ultrasound and transvaginal ultrasound not well visualized Status post banding and obesity consult Central Line -left internal jugular-on 02/20/2025 ETT-intubated on 02/20/2025 Serrano's catheter Goals of care, Code status ; discussed with >25 minutes PUD prophylaxis: Pantoprazole DVT prophylaxis: SCD, no Lovenox as patient has thrombocytopenia Plan discussed with Dr. Asif , nursing staff, Total time spent on patient evaluation, chart review, total time spent for critical care including mechanical ventilation including CPAP trial, excluding procedure 87 minute Plan discussed with: Spouse, Other (RN) My Orders My Orders Orders - PILI GALICIA Procedure Category Date Status Time Lactulose Oral PHA 02/27/25 In Process 14:00 Methylprednisolone PHA 02/27/25 In Process Sod Succ (Solu Medrol 14:00 Chest Portable XY 02/28/25 Resulted 04:00 Abg W/ Co-Ox RT 02/28/25 Logged 04:00 Acetazolamide PHA 02/27/25 In Process Injection (Diamox 22:00 Enoxaparin Sodium PHA 02/27/25 In Process (Lovenox) 11:23 Pharmacy THEO 02/27/25 In Process Clarification: 23:59 Metoclopramide PHA 02/27/25 In Process Injection (Reglan 18:00 Dietary Evaluation Review Comments: 1. Disagree with current TF orders, change to Vital HP @ 40 ml/hr continuously 2. Provide free water flushes of 30 ml Q8 hrs (90 ml total); adjust PRN 3. Monitor BMP/lytes and replete to WNL 4. When appropriate for oral diet, recommend Cardiac diet as tolerated TF Provision: TF at goal to provide 960 ml total volume, 960 kcal (+958 kcal via propofol = 1918 kcal), 84 gm pro, 0 gm fiber, 107 gm CHO, 801 ml H20 (meets 100% est. kcal needs, 100% est. pro needs) Expected Outcomes/Goals: Improved nutritional status, hemodynamic stability. Date of Service: Feb 28, 2025 Billing Provider: CARTER ASIF MD Common Visit Codes: NOT BILLABLE PILI GALICIA Feb 28, 2025 07:05 CARTER ASIF MD Mar 12, 2025 09:42
[2025-02-28] MEDS: POTASSIUM CHL 20MEQ/50ML 50 ML IV ONE (09:45)
[2025-02-28] MEDS: DIGOXIN 0.125 MG TAB PO SCH (10:07)
[2025-02-28] MEDS: MAGNESIUM SULFATE 1GM/100ML 100 ML IV ONE ×2 (10:18→20:23)
[2025-02-28 10:27] LABS: Base Excess 10.2 mmol/L (-2.0-3.0)
--- NOTE | 2025-02-28 12:01 | DVHPN2 ---
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 Patient remains mechanically ventilated at time of assessment Objective vital signs Vital Sign Date Time Temp Pulse Resp B/P (MAP) Pulse Ox O2 Delivery O2 Flow Rate FiO2 02/28/25 11:41 92 Cool Aerosol 10 N/A 02/28/25 11:29 118 28 02/28/25 11:19 138/74 02/28/25 04:00 98.1 98.1 Total Intake and Output 02/27/25 02/27/25 02/28/25 15:00 23:00 07:00 Intake Total 603.795 ml 343.63 ml 472.87 ml Output Total 2200 ml 1950 ml Balance 603.795 ml -1856.37 ml -1477.13 ml medications Current Medications Medications Dose Ordered Sig/Adolfo Route Start Time Stop Time Status Last Admin Dose Admin Nitroglycerin 0.4 mg Q5MINP PRN SL 02/19/25 15:15 Morphine Sulfate 2 mg Q30M PRN IV 02/19/25 15:15 02/19/25 21:24 2 MG Ipratropium [place] 0.5 mg Q6HR NEB 02/19/25 18:00 02/28/25 11:14 0.5 MG Midazolam HCl 50 ml @ 1 mls/hr Q24H IV 02/20/25 08:30 02/24/25 03:30 2 MLS/HR Doxycycline Hyclate 100 ml @ 50 mls/hr Q12H IV 02/20/25 10:00 02/28/25 10:07 50 MLS/HR Fentanyl Citrate 250 ml @ 2.5 mls/hr Q24H IV 02/20/25 11:00 02/27/25 12:13 2.5 MLS/HR Propofol 100 ml @ 5.181 mls/ hr [id number] IV 02/22/25 00:30 02/24/25 01:20 15.543 MLS/HR Diagnostic Test (Pha) 1 strip ACHS 02/22/25 07:19 02/28/25 11:41 1 STRIP Insulin Human Regular ACHS SC 02/22/25 07:19 02/28/25 11:44 3 UNITS Dextrose 50 ml UD PRN IV 02/22/25 07:15 Dexmedetomidine HCl 400 mcg/ Dextrose 100 ml @ 8.87 mls/hr [id number] IV 02/22/25 17:30 02/27/25 03:33 8.87 MLS/HR Pantoprazole Sodium 40 mg DAILY IV 02/26/25 10:00 02/28/25 09:41 40 MG Atorvastatin Calcium 40 mg HS PO 02/25/25 22:00 02/27/25 22:09 40 MG Enteral Nutritional Formula 1,000 ml 30ML/HR GT 02/25/25 14:30 02/26/25 15:51 1,000 ML Norepinephrine Bitartrate 250 ml @ 3.75 mls/hr Q24H IV 02/25/25 18:45 02/26/25 23:51 7.5 MLS/HR Acetaminophen/ Hydrocodone Bitart 1 tab Q4HP PRN PO 02/26/25 09:45 02/26/25 19:14 1 TAB Digoxin 0.125 mg EOD PO 02/28/25 10:00 02/28/25 10:07 0.125 MG Furosemide 20 mg BID IV 02/26/25 22:00 02/28/25 11:15 20 MG Lactulose 30 ml TID PO 02/27/25 14:00 02/28/25 05:52 30 ML Methylprednisolone Sodium Succinate 60 mg Q8HR IV 02/27/25 14:00 02/28/25 05:52 60 MG Enoxaparin Sodium 40 mg DAILY SC 02/27/25 11:23 Hold Acetazolamide Sodium 250 mg Q12HR IV 02/27/25 22:00 03/02/25 21:59 02/28/25 11:19 250 MG Metoclopramide HCl 5 mg Q6HR IV 02/27/25 18:00 02/28/25 05:52 5 MG Examination: GENERAL:Abnormal (Generalized weakness), LUNGS:Abnormal (Mechanically ventilated), CVS:Abnormal (Atrial fibrillation), NEURO:Abnormal (Chemically sedated, able to follow commands) laboratory and microbiology Laboratory Tests 02/28/25 03:40 Test 02/28/25 03:40 Range/Units Serum Glucose 177 H 74-106 mg/dL Problem List/Assessment/Plan Problem List/Assessment/Plan Acute on chronic decompensated HFpEF with LVEF 50-55%, NYHA Class III Unspecified atrial fibrillation with rapid ventricular rate, on Eliquis therapy, now controlled rate Pulmonary hypertension with decreased RV function, okxkzxii-od-acjkuu degree Tricuspid regurgitation, wsgggauw-oa-kmvcme degree Pericardial effusion, resolved Sepsis with multifocal pneumonia Acute on chronic hypoxic respiratory failure Acute kidney injury Vaginal bleed Borderline thrombocytopenia Morbid obesity Plan/Recommendation (Dr. Ruiz) * Transthoracic echocardiogram revealed EF 50-55% * Moderately decreased RV function. PAH at 60 mmHg. Moderate to severe TR. Moderate pericardial effusion * Antiarrhythmic therapy, continue amiodarone drip per pharmacy protocol * Rate control, digoxin therapy EOD. Add beta-tia with stable BP * DOAC therapy, Eliquis therapy held given reported vaginal bleed/thrombocytopenia * [id number] Score: 5 points. HAS-BLED Score: 3 points * At high risk for CVA being off DOAC therapy * Replete electrolytes as necessary, K>4 and Mg>2 * Nephrology/Pulmonology/GLEASON OPERATOR recommendations * Thyroid work-up & ABX therapy per primary care team * DVT prophylaxis: SCDs Thank you for allowing us to participate in this patient's care. Please call if you have any questions or concerns. Critical care time: 30 min. This medical document was created using an electronic medical record system with voice recognition software and computerized dictation system. Although this document has been carefully reviewed, there might still be some phonetic and typographical errors. Occasional wrong-word or ``sound-alike substitutions may have occurred due to the inherent limitations of voice recognition software. These areas are purely typographical due to imperfections of the software programs and do not reflect any compromise in the patient's medical care. Please read the chart carefully and recognize, using context, where these substitutions have occurred. Plan discussed with: Other (Bedside RN) Dietary Evaluation Review Comments: 1. Disagree with current TF orders, change to Vital HP @ 40 ml/hr continuously 2. Provide free water flushes of 30 ml Q8 hrs (90 ml total); adjust PRN 3. Monitor BMP/lytes and replete to WNL 4. When appropriate for oral diet, recommend Cardiac diet as tolerated TF Provision: TF at goal to provide 960 ml total volume, 960 kcal (+958 kcal via propofol = 1918 kcal), 84 gm pro, 0 gm fiber, 107 gm CHO, 801 ml H20 (meets 100% est. kcal needs, 100% est. pro needs) Expected Outcomes/Goals: Improved nutritional status, hemodynamic stability. Date of Service: Feb 28, 2025 Billing Provider: AUGIE MONROY Common Visit Codes: 30117-[id number] CARE 30-74 MIN AUGIE MONROY Feb 28, 2025 12:01
[2025-02-28] MEDS: EPINEPHrine HCL 0.5 ML NEB ONE ×3 (12:02→12:31)
[2025-02-28] MEDS: HYDROCORTISONE SOD SUCC 100 MG/2ML INJ VIAL IV ONE (12:24)
[2025-02-28] MEDS ORDERED: EPINEPHrine HCL 0.5 ML NEB NEB ONE (12:45)
[2025-02-28 13:46] LABS: Base Excess 7.8 mmol/L (-2.0-3.0)
[2025-02-28] MEDS: POTASSIUM CHL 20MEQ/50ML 50 ML IV SCH (21:13)
[2025-03-01] VITALS (110 sets, daily range): BP systolic 101–159; BP diastolic 46–98; PULSE 87–129; RESP 16–38; TEMP 97.9–98.8; O2SAT 87–100
[2025-03-01 01:00] LABS: Sodium 138 mmol/L (136-145)
[2025-03-01 01:01] LABS: Anion Gap 8 (5-15)
[2025-03-01 01:06] LABS: BUN/Creatinine Ratio 25.2 (10.0-20.0)
[2025-03-01 01:08] LABS: Blood Urea Nitrogen 61 mg/dL (9-23); Carbon Dioxide 35 mmol/L (20-31); Chloride 95 mmol/L (98-107); Glucose 221 mg/dL (74-106); Potassium 3.4 mmol/L (3.5-5.1)
[2025-03-01 04:15] LABS: Basophils # (auto) 0 10 ^3/uL (0-0.2); Basophils % (auto) 0.1 % (0.0-2.0); Eosinophils # (auto) 0 10 ^3/uL (0-0.8); Hematocrit 27.6 % (36.0-46.0); Hemoglobin 8.9 g/dL (12.2-16.2); Lymphocytes # (auto) 0.4 10 ^3/uL (0.4-5.4); Lymphocytes % (auto) 4.3 % (10.0-50.0); Mean Corpuscular Hemoglobin 30.7 pg (28.0-32.0); Mean Corpuscular Hgb Conc. 32.3 g/dL (32.0-36.0); Mean Corpuscular Volume 94.9 fL (80.0-100.0); Monocytes # (auto) 0.4 10 ^3/uL (0-1.3); Monocytes % (auto) 4.2 % (0.0-12.0); Neutrophils # (auto) 8.2 10 ^3/uL (1.6-8.6); Neutrophils % (auto) 91.4 % (37.0-80.0); Nucleated Red Blood Cells % 0.1 %; Platelet Count (auto) 128 10^3/uL (140-450); Red Blood Cells 2.91 10^6/uL (4.0-5.20); Red Cell Distribution Width 21.6 % (11.8-14.3); White Blood Cell 8.9 10^3/uL (4.4-10.8)
[2025-03-01 04:35] LABS: Alanine Aminotransferase 37 U/L (7-40); Albumin 3.9 g/dL (3.2-4.8); Alkaline Phosphatase 143 U/L (46-116); Anion Gap 12 (5-15); Aspartate Aminotransferase 33 U/L (13-40); Bilirubin, Total 0.7 mg/dL (0.2-1.0); Blood Urea Nitrogen 63 mg/dL (9-23); Calcium 10.2 mg/dL (8.7-10.4); Carbon Dioxide 34 mmol/L (20-31); Chloride 92 mmol/L (98-107); Glucose 220 mg/dL (74-106); Magnesium 2.6 mg/dL (1.6-2.6); Potassium 3.3 mmol/L (3.5-5.1); Sodium 138 mmol/L (136-145); Total Protein 6.7 g/dL (5.7-8.2)
--- NOTE | 2025-03-01 05:15 | DVH ---
INDICATION: HF TECHNIQUE: Single frontal view of the chest was obtained COMPARISON: XY CHEST PORTABLE on DOS: 02/28/25, XY CHEST PORTABLE on DOS: 02/27/25, XY CHEST XRAY 1 VIEW on DOS: 04/05/24, XY CHEST PORTABLE on DOS: 04/03/24, XY CHEST PORTABLE on DOS: 02/28/25 FINDINGS: Lines and Tubes: ET Tube not seen. NG Tube in stomach Lungs: Mild hazy bilateral prominence. Left basilar opacities. Pleura: Left pleural effusion. Improved right pleural effusion. No pneumothorax. Cardiomediastinal contours: Cardiomegaly. Bones: No acute osseous abnormality. IMPRESSION: 1. Pulmonary congestion. Improved right pleural effusion. 2. Cardiomegaly.
[2025-03-01 05:36] LABS: Anisocytosis Slight; Platelet Estimate Decreased
[2025-03-01 05:37] LABS: Stomatocytes Few
[2025-03-01 05:38] LABS: Ovalocytes FEW
[2025-03-01] MEDS: POTASSIUM CHL 20MEQ/50ML 50 ML IV SCH (06:28)
--- NOTE | 2025-03-01 09:19 | DVHPN2 ---
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 The patient was extubated yesterday Objective vital signs Vital Sign Date Time Temp Pulse Resp B/P (MAP) Pulse Ox O2 Delivery O2 Flow Rate FiO2 03/01/25 08:00 111 03/01/25 08:00 25 93 Bi-Pap+ 40 40 03/01/25 07:28 145/89 03/01/25 04:00 98.5 98.5 02/28/25 16:00 10 Total Intake and Output 02/28/25 02/28/25 03/01/25 15:00 23:00 07:00 Intake Total 385.78 ml 163.28 ml 416.62 ml Output Total 600 ml 325 ml Balance 385.78 ml -436.72 ml 91.62 ml medications Current Medications Medications Dose Ordered Sig/Adolfo Route Start Time Stop Time Status Last Admin Dose Admin Nitroglycerin 0.4 mg Q5MINP PRN SL 02/19/25 15:15 Ipratropium [place] 0.5 mg Q6HR NEB 02/19/25 18:00 03/01/25 06:26 0.5 MG Midazolam HCl 50 ml @ 1 mls/hr Q24H IV 02/20/25 08:30 02/24/25 03:30 2 MLS/HR Doxycycline Hyclate 100 ml @ 50 mls/hr Q12H IV 02/20/25 10:00 02/28/25 21:18 50 MLS/HR Fentanyl Citrate 250 ml @ 2.5 mls/hr Q24H IV 02/20/25 11:00 02/27/25 12:13 2.5 MLS/HR Diagnostic Test (Pha) 1 strip ACHS 02/22/25 07:19 03/01/25 05:20 1 STRIP Insulin Human Regular ACHS SC 02/22/25 07:19 03/01/25 05:25 4 UNITS Dextrose 50 ml UD PRN IV 02/22/25 07:15 Dexmedetomidine HCl 400 mcg/ Dextrose 100 ml @ 8.87 mls/hr [id number] IV 02/22/25 17:30 02/27/25 03:33 8.87 MLS/HR Pantoprazole Sodium 40 mg DAILY IV 02/26/25 10:00 02/28/25 09:41 40 MG Atorvastatin Calcium 40 mg HS PO 02/25/25 22:00 02/28/25 21:18 40 MG Enteral Nutritional Formula 1,000 ml 30ML/HR GT 02/25/25 14:30 02/26/25 15:51 1,000 ML Norepinephrine Bitartrate 250 ml @ 3.75 mls/hr Q24H IV 02/25/25 18:45 02/26/25 23:51 7.5 MLS/HR Acetaminophen/ Hydrocodone Bitart 1 tab Q4HP PRN PO 02/26/25 09:45 02/28/25 22:44 1 TAB Digoxin 0.125 mg EOD PO 02/28/25 10:00 02/28/25 10:07 0.125 MG Furosemide 20 mg BID IV 02/26/25 22:00 02/28/25 21:18 20 MG Lactulose 30 ml TID PO 02/27/25 14:00 03/01/25 05:19 30 ML Methylprednisolone Sodium Succinate 60 mg Q8HR IV 02/27/25 14:00 03/01/25 05:19 60 MG Enoxaparin Sodium 40 mg DAILY SC 02/27/25 11:23 Hold Acetazolamide Sodium 250 mg Q12HR IV 02/27/25 22:00 03/02/25 21:59 02/28/25 21:29 250 MG Metoclopramide HCl 5 mg Q6HR IV 02/27/25 18:00 03/01/25 05:20 5 MG Potassium Chloride 50 ml @ 25 mls/hr Q2H IV 03/01/25 06:15 03/01/25 10:14 03/01/25 08:42 25 MLS/HR Examination: GENERAL:Abnormal (Generalized weakness), LUNGS:Abnormal (On BiPAP), CVS:Abnormal (Atrial fibrillation), NEURO:Normal laboratory and microbiology Laboratory Tests 03/01/25 03:20 Test 03/01/25 03:20 Range/Units Serum Glucose 220 H 74-106 mg/dL Problem List/Assessment/Plan Problem List/Assessment/Plan Acute on chronic decompensated HFpEF with LVEF 50-55%, NYHA Class III Unspecified atrial fibrillation with rapid ventricular rate, on Eliquis therapy, now controlled rate Pulmonary hypertension with decreased RV function, avwikfsl-hv-[id number] degree Tricuspid regurgitation, fctzgodl-cp-[id number] degree Pericardial effusion, resolved Sepsis with multifocal pneumonia Acute on chronic hypoxic respiratory failure Acute kidney injury Vaginal bleed Borderline thrombocytopenia Morbid obesity Plan/Recommendation (Dr. Ruiz) * Transthoracic echocardiogram revealed EF 50-55% * Moderately decreased RV function. PAH at 60 mmHg. Moderate to severe TR. Moderate pericardial effusion * Antiarrhythmic therapy, continue amiodarone drip per pharmacy protocol * Rate control, digoxin therapy EOD. * Initiate low-dose beta-tia, up titrate as tolerated by BP * DOAC therapy, Eliquis therapy held given reported vaginal bleed/thrombocytopenia * [id number] Score: 5 points. HAS-BLED Score: 3 points * At high risk for CVA being off DOAC therapy * Replete electrolytes as necessary, K>4 and Mg>2 * Nephrology/Pulmonology/EXTENSION SERVICE SPECIALIST IN CHARGE recommendations * DVT prophylaxis: SCDs Thank you for allowing us to participate in this patient's care. Please call if you have any questions or concerns. Critical care time: 30 min. This medical document was created using an electronic medical record system with voice recognition software and computerized dictation system. Although this document has been carefully reviewed, there might still be some phonetic and typographical errors. Occasional wrong-word or ``sound-alike substitutions may have occurred due to the inherent limitations of voice recognition software. These areas are purely typographical due to imperfections of the software programs and do not reflect any compromise in the patient's medical care. Please read the chart carefully and recognize, using context, where these substitutions have occurred. Plan discussed with: Patient, Other (Bedside RN) Dietary Evaluation Review Comments: 1. Disagree with current TF orders, change to Vital HP @ 40 ml/hr continuously 2. Provide free water flushes of 30 ml Q8 hrs (90 ml total); adjust PRN 3. Monitor BMP/lytes and replete to WNL 4. When appropriate for oral diet, recommend Cardiac diet as tolerated TF Provision: TF at goal to provide 960 ml total volume, 960 kcal (+958 kcal via propofol = 1918 kcal), 84 gm pro, 0 gm fiber, 107 gm CHO, 801 ml H20 (meets 100% est. kcal needs, 100% est. pro needs) Expected Outcomes/Goals: Improved nutritional status, hemodynamic stability. Date of Service: Mar 01, 2025 Billing Provider: AUGIE MONROY Common Visit Codes: [id number] CARE 30-74 MIN AUGIE MONROY Mar 01, 2025 09:18
[2025-03-01 10:48] LABS: Base Excess 4.1 mmol/L (-2.0-3.0)
--- NOTE | 2025-03-01 11:35 | DVHPN2 ---
Progress Note - Dictate Date Seen: Mar 01, 2025 Medical Necessity Reason Pt with a Central, PICC or Fol: Yes The following are medically ne: Serrano Catheter Reason for serrano catheter: Strict I&O Subjective Covering for Dr. Recio Patient seen and examined Overnight events reviewed vital signs Vital Sign Date Time Temp Pulse Resp B/P (MAP) Pulse Ox O2 Delivery O2 Flow Rate FiO2 03/01/25 10:45 112 29 126/60 (82) 93 03/01/25 10:27 Facial BiPAP Mask 70 03/01/25 08:00 97.9 97.9 02/28/25 16:00 10 Total Intake and Output 02/28/25 02/28/25 03/01/25 15:00 23:00 07:00 Intake Total 385.78 ml 163.28 ml 458.28 ml Output Total 600 ml 325 ml Balance 385.78 ml -436.72 ml 133.28 ml medications Current Medications Medications Dose Ordered Sig/Adolfo Route Start Time Stop Time Status Last Admin Dose Admin Nitroglycerin 0.4 mg Q5MINP PRN SL 02/19/25 15:15 Ipratropium [place] 0.5 mg Q6HR NEB 02/19/25 18:00 03/01/25 06:26 0.5 MG Midazolam HCl 50 ml @ 1 mls/hr Q24H IV 02/20/25 08:30 02/24/25 03:30 2 MLS/HR Doxycycline Hyclate 100 ml @ 50 mls/hr Q12H IV 02/20/25 10:00 03/01/25 10:19 50 MLS/HR Fentanyl Citrate 250 ml @ 2.5 mls/hr Q24H IV 02/20/25 11:00 02/27/25 12:13 2.5 MLS/HR Diagnostic Test (Pha) 1 strip ACHS 02/22/25 07:19 03/01/25 05:20 1 STRIP Insulin Human Regular ACHS SC 02/22/25 07:19 03/01/25 05:25 4 UNITS Dextrose 50 ml UD PRN IV 02/22/25 07:15 Dexmedetomidine HCl 400 mcg/ Dextrose 100 ml @ 8.87 mls/hr [id number] IV 02/22/25 17:30 02/27/25 03:33 8.87 MLS/HR Pantoprazole Sodium 40 mg DAILY IV 02/26/25 10:00 03/01/25 10:19 40 MG Atorvastatin Calcium 40 mg HS PO 02/25/25 22:00 02/28/25 21:18 40 MG Enteral Nutritional Formula 1,000 ml 30ML/HR GT 02/25/25 14:30 02/26/25 15:51 1,000 ML Acetaminophen/ Hydrocodone Bitart 1 tab Q4HP PRN PO 02/26/25 09:45 02/28/25 22:44 1 TAB Digoxin 0.125 mg EOD PO 02/28/25 10:00 02/28/25 10:07 0.125 MG Furosemide 20 mg BID IV 02/26/25 22:00 03/01/25 10:19 20 MG Lactulose 30 ml TID PO 02/27/25 14:00 03/01/25 05:19 30 ML Methylprednisolone Sodium Succinate 60 mg Q8HR IV 02/27/25 14:00 03/01/25 05:19 60 MG Enoxaparin Sodium 40 mg DAILY SC 02/27/25 11:23 Hold Acetazolamide Sodium 250 mg Q12HR IV 02/27/25 22:00 03/02/25 21:59 03/01/25 10:18 250 MG Metoclopramide HCl 5 mg Q6HR IV 02/27/25 18:00 03/01/25 05:20 5 MG Metoprolol Tartrate 12.5 mg BID PO 03/01/25 22:00 laboratory and microbiology Laboratory Tests 03/01/25 03:20 Test 03/01/25 03:20 Range/Units Serum Glucose 220 H 74-106 mg/dL Assessment/Plan Impression Acute hypoxemic respiratory failure Septic shock NSTEMI Pneumonia Patient seen and examined in ICU Events Required bipap overnight Desaturations reported upon turning Respiratory status tenuous Labs and imaging reviewed BUn/Creatinine trending up ABG reviewed pH 7.27, pCO2 71, pO2 69 Management Supplemental oxygen Titrate to maintain sats 90% or above Incentive spirometry Aspiration precautions Prn bipap Continue antibiotics Bronchodilators Monitor renal function F/u nephrology, management deferred Monitor electrolytes Supplement as needed Observe for signs of decline Patient is at significant risk for re-intubation DVT prophylaxis Critical care time 35 minutes Dietary Evaluation Review Comments: 1. Disagree with current TF orders, change to Vital HP @ 40 ml/hr continuously 2. Provide free water flushes of 30 ml Q8 hrs (90 ml total); adjust PRN 3. Monitor BMP/lytes and replete to WNL 4. When appropriate for oral diet, recommend Cardiac diet as tolerated TF Provision: TF at goal to provide 960 ml total volume, 960 kcal (+958 kcal via propofol = 1918 kcal), 84 gm pro, 0 gm fiber, 107 gm CHO, 801 ml H20 (meets 100% est. kcal needs, 100% est. pro needs) Expected Outcomes/Goals: Improved nutritional status, hemodynamic stability. Plan discussed with: Patient, Other (Rn) CARTER ARCE MD Mar 01, 2025 11:35
[2025-03-01] MEDS: METOPROLOL TARTRATE 25 MG TAB PO ONE (12:28)
[2025-03-01] MEDS: FLEET ENEMA(ADULT) 135 ML PR ONE (12:43)
[2025-03-01] MEDS: MORPHINE SULFATE INJ 2 MG/ml SYRG IV ONE (12:45)
[2025-03-01] MEDS: FUROSEMIDE 40 MG/4 ML VIAL IV SCH (15:34)
[2025-03-01] MEDS: METOPROLOL TARTRATE 25 MG TAB PO SCH (22:58)
[2025-03-02] VITALS (113 sets, daily range): BP systolic 89–155; BP diastolic 42–102; PULSE 88–149; RESP 15–33; TEMP 97.7–98.7; O2SAT 86–100
[2025-03-02 03:42] LABS: Basophils # (auto) 0 10 ^3/uL (0-0.2); Eosinophils # (auto) 0 10 ^3/uL (0-0.8); Hemoglobin 8.2 g/dL (12.2-16.2); Lymphocytes # (auto) 0.2 10 ^3/uL (0.4-5.4); Monocytes # (auto) 0.5 10 ^3/uL (0-1.3)
[2025-03-02 03:46] LABS: Hematocrit 25.3 % (36.0-46.0); Lymphocytes % (auto) 2.9 % (10.0-50.0); Mean Corpuscular Hemoglobin 30.6 pg (28.0-32.0); Mean Corpuscular Hgb Conc. 32.2 g/dL (32.0-36.0); Mean Corpuscular Volume 95.2 fL (80.0-100.0); Monocytes % (auto) 7.9 % (0.0-12.0); Neutrophils # (auto) 5.9 10 ^3/uL (1.6-8.6); Neutrophils % (auto) 89.2 % (37.0-80.0); Platelet Count (auto) 122 10^3/uL (140-450); Red Blood Cells 2.66 10^6/uL (4.0-5.20); Red Cell Distribution Width 21.5 % (11.8-14.3); White Blood Cell 6.6 10^3/uL (4.4-10.8)
[2025-03-02 04:01] LABS: Potassium 3.7 mmol/L (3.5-5.1); Sodium 139 mmol/L (136-145)
[2025-03-02 04:02] LABS: Anion Gap 9 (5-15); Calcium 9.8 mg/dL (8.7-10.4)
[2025-03-02 04:08] LABS: BUN/Creatinine Ratio 23.5 (10.0-20.0); Blood Urea Nitrogen 72 mg/dL (9-23); Carbon Dioxide 34 mmol/L (20-31); Chloride 96 mmol/L (98-107); Glucose 191 mg/dL (74-106)
[2025-03-02 05:17] LABS: Anisocytosis Slight; Platelet Estimate Decreased; Stomatocytes Few
[2025-03-02 07:05] LABS: Base Excess 4.7 mmol/L (-2.0-3.0)
[2025-03-02] MEDS: BUMETANIDE INJECTION 25 MG in GIVE UN-DILUTED 0 ML IV SCH (09:00)
--- NOTE | 2025-03-02 10:14 | DVH ---
EXAM: US Retroperitoneal Limited, Renal CLINICAL INDICATION: AN TECHNIQUE: Real-time limited ultrasound of the retroperitoneum with image documentation. COMPARISON: US KIDNEY on DOS: 04/04/24 FINDINGS: RIGHT KIDNEY: Right kidney measures up to 10.9 cm. No stones. No hydronephrosis. LEFT KIDNEY: Left kidney measures up to 11.3 cm. No stones. No hydronephrosis. OTHER FINDINGS: . . IMPRESSION: No acute findings in the retroperitoneum.
--- NOTE | 2025-03-02 10:33 | DVHPN2 ---
Assessment/Plan Assessment/Plan ICU notes 69 F with afib on eliquis, HFpEF, pHTN, RV failure, COPD group E on home O2, IDDM admitted for SOB, intubated 02/20/2025, extubated 02/28. Seen by me today during rounds, on bipap past 48 hours. will have to titrate off Physical exam morbidly obese alert on bipap exam limited by habitus LE edema Labs EKG imaging reviewed Assessment and plan metabolic encephalopathy septic shock acute diastolic heart failure HFpEF RV failure pHTN HERVE/OHS acute on chronic hypoxic hypercarbic RF PNA gp vs gn AN VMN on CKD Type 2 KS anemia thrombocytopenia morbid obesity vaginal bleeding c/w sup o2 maintain spo2 >90% cardio consult appreciated c/w amio drip, dig, metop hold lovenox thrombocytopenia c/w steroid breathing tx c/w abx cefepime and doxy BIPAP at night bumex drip lines serrano TLC R IJ full code condition critical prognosis poor diet NPO on bipap dvt ppx on hold gi ppx protonix critical care time 60 minutes Plan discussed with: Patient Date of Service: Mar 02, 2025 Billing Provider: LIANNA ARTEAGA MD Common Visit Codes: [id number] CARE 30-74 MIN LIANNA ARTEAGA MD Mar 02, 2025 10:33
[2025-03-02] MEDS: METOPROLOL TARTRATE 25 MG TAB PO SCH (10:49)
--- NOTE | 2025-03-02 11:11 | DVH ---
EXAM: XR Chest, 1 View CLINICAL INDICATION: bipap/ work of breathing TECHNIQUE: Frontal view of the chest. COMPARISON: XY CHEST PORTABLE on DOS: 03/01/25, XY CHEST PORTABLE on DOS: 02/28/25, XY CHEST PORTABLE o n DOS: 02/27/25, XY CHEST XRAY 1 VIEW on DOS: 04/05/24, XY CHEST PORTABLE on DOS: 04/03/24 FINDINGS: LUNGS AND PLEURAL SPACES: See below. HEART: Cardiomegaly with mild congestion. MEDIASTINUM: Unremarkable. Normal mediastinal contour. BONES/JOINTS: Unremarkable. No acute fracture. OTHER FINDINGS: . IMPRESSION: Cardiomegaly with mild congestion.
--- NOTE | 2025-03-02 11:26 | DVHPN2 ---
Consult Progress Note Subjective Review of Systems: RESPIRATORY:Abnormal (SOB) Objective vital signs Vital Sign Date Time Temp Pulse Resp B/P (MAP) Pulse Ox O2 Delivery O2 Flow Rate FiO2 03/02/25 10:52 108 03/02/25 10:49 122/101 03/02/25 09:57 98 Facial BiPAP Mask 70 03/02/25 08:00 28 03/02/25 04:00 98.7 98.7 02/28/25 16:00 10 Total Intake and Output 03/01/25 03/01/25 03/02/25 15:00 23:00 07:00 Intake Total 308.28 ml 263.28 ml 233.28 ml Output Total 150 ml 100 ml Balance 308.28 ml 113.28 ml 133.28 ml medications Current Medications Medications Dose Ordered Sig/Adolfo Route Start Time Stop Time Status Last Admin Dose Admin Nitroglycerin 0.4 mg Q5MINP PRN SL 02/19/25 15:15 Ipratropium [place] 0.5 mg Q6HR NEB 02/19/25 18:00 03/02/25 06:17 0.5 MG Doxycycline Hyclate 100 ml @ 50 mls/hr Q12H IV 02/20/25 10:00 03/01/25 21:02 50 MLS/HR Diagnostic Test (Pha) 1 strip ACHS 02/22/25 07:19 03/02/25 06:39 1 STRIP Insulin Human Regular ACHS SC 02/22/25 07:19 03/02/25 06:38 3 UNITS Dextrose 50 ml UD PRN IV 02/22/25 07:15 Pantoprazole Sodium 40 mg DAILY IV 02/26/25 10:00 03/02/25 10:48 40 MG Atorvastatin Calcium 40 mg HS PO 02/25/25 22:00 03/01/25 22:58 40 MG Enteral Nutritional Formula 1,000 ml 30ML/HR GT 02/25/25 14:30 02/26/25 15:51 1,000 ML Acetaminophen/ Hydrocodone Bitart 1 tab Q4HP PRN PO 02/26/25 09:45 02/28/25 22:44 1 TAB Digoxin 0.125 mg EOD PO 02/28/25 10:00 03/02/25 10:52 0.125 MG Lactulose 30 ml TID PO 02/27/25 14:00 03/02/25 05:23 30 ML Methylprednisolone Sodium Succinate 60 mg Q8HR IV 02/27/25 14:00 03/02/25 05:22 60 MG Metoclopramide HCl 5 mg Q6HR IV 02/27/25 18:00 03/02/25 05:23 5 MG Metoprolol Tartrate 25 mg BID PO 03/02/25 10:00 03/02/25 10:49 25 MG Bumetanide 25 mg/ Miscellaneous 100 ml @ 4 mls/hr Q24H IV 03/02/25 09:00 03/02/25 09:00 4 MLS/HR Examination: LUNGS:Abnormal (Bipap, 70% FiO2), CVS:Abnormal (Telemetry reviewed, consistent with atrial fibrillation with RVR 104 beats per minute. ), MSK:Normal ((-) LE edema) laboratory and microbiology Laboratory Tests 03/02/25 03:23 Test 03/02/25 03:23 Range/Units Serum Glucose 191 H 74-106 mg/dL Problem List/Assessment/Plan Problem List/Assessment/Plan Problem List/Assessment/Plan Acute on chronic decompensated HFpEF with LVEF 50-55%, NYHA Class III Unspecified atrial fibrillation with rapid ventricular rate, on Eliquis therapy, now controlled rate Pulmonary hypertension with decreased RV function, rccihqvq-qh-nmshig degree Tricuspid regurgitation, vmyxwzdt-fc-zbcalh degree Pericardial effusion, resolved Sepsis with multifocal pneumonia Acute on chronic hypoxic respiratory failure Acute kidney injury Vaginal bleed Borderline thrombocytopenia Morbid obesity Plan/Recommendation (Dr. Ruiz) * Transthoracic echocardiogram revealed EF 50-55% * Moderately decreased RV function. PAH at 60 mmHg. Moderate to severe TR. Moderate pericardial effusion * Antiarrhythmic therapy, continue amiodarone drip per pharmacy protocol * Rate control, digoxin therapy EOD. * Metoprolol increased to 50 mg p.o. twice daily. * Eliquis held given reported vaginal bleed/thrombocytopenia * [id number] Score: 5 points. HAS-BLED Score: 3 points * At high risk for CVA being off DOAC therapy * Replete electrolytes as necessary, K>4 and Mg>2 * Nephrology/Pulmonology/TELECOMMUNICATIONS MANAGER recommendations * DVT prophylaxis: SCDs Patient with worsening kidney function, Lasix discontinued, now on Bumex drip, nephrology on board, follow up recs. Metoprolol increased to 50 mg p.o. twice daily, continue trending and titrate as tolerated. Patient continues to be on BiPAP at 70%. Thank you for allowing us to participate in this patient's care. Please call if you have any questions or concerns. Plan discussed with: Patient, Other (bedside RN) Dietary Evaluation Review Comments: 1. Disagree with current TF orders, change to Vital HP @ 40 ml/hr continuously 2. Provide free water flushes of 30 ml Q8 hrs (90 ml total); adjust PRN 3. Monitor BMP/lytes and replete to WNL 4. When appropriate for oral diet, recommend Cardiac diet as tolerated TF Provision: TF at goal to provide 960 ml total volume, 960 kcal (+958 kcal via propofol = 1918 kcal), 84 gm pro, 0 gm fiber, 107 gm CHO, 801 ml H20 (meets 100% est. kcal needs, 100% est. pro needs) Expected Outcomes/Goals: Improved nutritional status, hemodynamic stability. Date of Service: Mar 02, 2025 Billing Provider: MAC ARCE Common Visit Codes: [id number] INP/OBS CARE(HIGH), [id number] CARE 30-74 MIN MAC ARCE Mar 02, 2025 11:25
--- NOTE | 2025-03-02 15:22 | DVHINCON2 ---
Date of service: Mar 02, 2025 Referring Physician Reason for Consultation AN History of Present Illness 69 years old female with past medical history of type 2 diabetes, hypertension, Chronic kidney disease, atrial fibrillation, Congestive heart failure, COPD, morbid obesity, chronic hypoxic respiratory failure, BMI greater than 50 presented with chief complaints of bilateral leg swelling for the past one month prior to admission on February 19, patient was intubated for worsening respiratory failure she also needed Levophed for hypotension, eventually she got extubated and was placed on BiPAP Her Levophed has been turned off On admission GFR was found to be 22 which improved to 31 range and then later dropped down to 16 and Nephrology was consulted at this point Patient has been here since February 19 She has been diuresed since admission Currently patient is on BiPAP, in moderate respiratory distress her is bedside Also been treated with IV steroids 3 times a day She had postmenopausal bleeding and OB then was consulted unknown etiology Cardiology has been consulted for atrial fibrillation with rapid ventricular rate and management of congestive heart failure she also has pulmonary hypertension tricuspid regurgitation and pneumonia She has multiple medical comorbidities Her urine output has been going down since yesterday Past Medical History As per HPI Past Surgical History As documented in HPI Allergies: Coded Allergies: NO KNOWN ALLERGIES (Unverified , 04/04/24) Home Meds Active Scripts Diltiazem Hcl (DILTIAZEM HCL ER) 240 Mg Cap, 240 MG PO DAILY for 30 Days, #60 CAP Prov:LARISSA CA RESIDENT 07/01/24 Reported Medications Atorvastatin Calcium (Lipitor) 20 Mg Tab, 1 TAB PO DAILY 06/28/24 Omeprazole (Omeprazole Dr) 20 Mg Cap, 1 CAP PO QAM 06/28/24 Cyclobenzaprine Hcl (Cyclobenzaprine Hcl) 10 Mg Tab, 1 TAB PO TID PRN for FOR MUSCLE SPASM 06/28/24 Bumetanide (Bumex) 2 Mg Tab, 1 TAB PO DAILY 06/28/24 Hydrocodone-Acetaminophen (Hydrocodone Bitartrate/AC 10-325 mg) 1 Tab Tab, 1 TAB PO Q8HR PRN for PAIN SCALE 7 THRU 10 04/04/24 Metoprolol Tartrate (Metoprolol Tartrate) 25 Mg Tab, 1 TAB PO BID, #60 TAB 5 Refills 04/04/24 Spironolactone (Spironolactone) 25 Mg Tab, 1 TAB PO DAILY, #90 TAB 1 Refill 04/04/24 Aspirin (Aspirin Low Dose) 81 Mg Chw, 1 TAB PO DAILY, #30 TAB 3 Refills 04/04/24 Benazepril Hcl (Benazepril Hcl) 20 Mg Tab, 1 TAB PO DAILY, #30 TAB 5 Refills 04/04/24 Current Medications Current Medications Medications (Trade) Dose Ordered Sig/Adolfo Route PRN Reason Start Time Stop Time Status Last Admin Metoprolol Tartrate (Lopressor Tablet) 12.5 mg BID PO 03/01/25 22:00 03/02/25 08:23 DC 03/01/25 22:58 Metoprolol Tartrate (Lopressor Tablet) 25 mg BID PO 03/02/25 10:00 03/02/25 10:49 Furosemide (Lasix Injection) 40 mg BID IV 03/02/25 22:00 03/02/25 09:13 DC Bumetanide 25 mg/ Miscellaneous 100 ml @ 4 mls/hr Q24H IV 03/02/25 09:00 03/02/25 09:00 Levalbuterol HCl (Xopenex Medneb) 1.25 mg Q6HR NEB 03/02/25 18:00 Family History: Patient reports no known family medical history. Review of Systems Unable to obtain H&P Exam Vital Signs/I&O Vital Sign Date Time Temp Pulse Resp B/P (MAP) Pulse Ox O2 Delivery O2 Flow Rate FiO2 03/02/25 14:01 102 131/92 97 Facial BiPAP Mask 60 03/02/25 14:00 26 03/02/25 12:00 98.0 98.0 02/28/25 16:00 10 Intake and Output 03/01/25 03/02/25 19:00 07:00 Intake Total 404.92 ml 399.92 ml Output Total 150 ml 100 ml Balance 254.92 ml 299.92 ml Intake Oral 30 ml 100 ml IV Total 374.92 ml 299.92 ml Output Urine Total 150 ml 100 ml Physical Exam General- obese in respiratory distress HEENT-normocephalic, no icterus, no pallor, neck supple Respiratory-fair air entry bilateral, [id number] heard, irregular rhythm Abdominal-soft, Musculoskeletal-no pedal edema, no calf tenderness Genitourinary-deferred Neuro-awake alert oriented, Psychiatric-not agitated, cooperative, Labs/Diagnostic Data Labs/Diagnostic Data Laboratory Tests Test 03/02/25 07:00 03/02/25 03:23 03/01/25 15:21 03/01/25 10:37 Range/Units Blood Gas Specimen Type Arterial Arterial Blood Gas Sample Site Right radial Right radial Blood Gas Patient Temperature 37.0 37.0 Arterial Blood Date Drawn [id number] Arterial Blood pH 7.391 7.270 L 7.350-7.450 Arterial Blood Partial Pressure CO2 51.1 H 71.9 *H 32.0-45.0 mmHg Arterial Blood Partial Pressure O2 76.1 L 69.3 L 83.0-108.0 mmHg Arterial Blood HCO3 30.3 H 32.3 H 21.0-28.0 mmol/L Arterial Blood Oxygen Saturation 94.9 90.5 L 94.0-98.0 % Arterial Blood Base Excess 4.7 H 4.1 H -2.0-3.0 mmol/L Arterial Blood Oxyhemoglobin 94.3 90.0 L 94.0-98.0 % Arterial Blood Carboxyhemoglobin 0.5 0.4 L 0.5-1.5 % Arterial Blood Methemoglobin 0.1 0.2 0.0-1.5 % Rodrigo Test Modified Modified Blood Gas Total Hemoglobin 8.80 L 9.50 L 12.0-16.0 g/dL Blood Gas Modality Mask - bipap Mask - bipap FiO2 % 70.0 70.0 Blood Gas Pressure Support 8 Blood Gas EPAP 10 7 Blood Gas IPAP 18 14 White Blood Count 6.6 # 4.4-10.8 10^3/uL Red Blood Count 2.66 L 4.0-5.20 10^6/uL Hemoglobin 8.2 L 12.2-16.2 g/dL Hematocrit 25.3 L 36.0-46.0 % Mean Corpuscular Volume 95.2 80.0-100.0 fL Mean Corpuscular Hemoglobin 30.6 28.0-32.0 pg Mean Corpuscular Hemoglobin Concent 32.2 32.0-36.0 g/dL Red Cell Distribution Width 21.5 H 11.8-14.3 % Platelet Count 122 L 140-450 10^3/uL Mean Platelet Volume 8.4 6.9-10.8 fL Neutrophils (%) (Auto) 89.2 H 37.0-80.0 % Lymphocytes (%) (Auto) 2.9 L 10.0-50.0 % Monocytes (%) (Auto) 7.9 0.0-12.0 % Eosinophils (%) (Auto) 0.0 0.0-7.0 % Basophils (%) (Auto) 0.0 0.0-2.0 % Neutrophils # (Auto) 5.9 1.6-8.6 10 ^3/uL Lymphocytes # (Auto) 0.2 L 0.4-5.4 10 ^3/uL Monocytes # (Auto) 0.5 0-1.3 10 ^3/uL Eosinophils # (Auto) 0 0-0.8 10 ^3/uL Basophils # (Auto) 0 0-0.2 10 ^3/uL Nucleated Red Blood Cells 0.0 % Platelet Estimate Decreased Anisocytosis (manual) Slight Stomatocytes Few Sodium Level 139 136-145 mmol/L Potassium Level 3.7 3.7 3.5-5.1 mmol/L Chloride Level 96 L 98-107 mmol/L Carbon Dioxide Level 34 H 20-31 mmol/L Anion Gap 9 5-15 Blood Urea Nitrogen 72 H 9-23 mg/dL Creatinine 3.06 H 0.550-1.02 mg/dL Glomerular Filtration Rate Calc 16 >90 mL/min BUN/Creatinine Ratio 23.5 H 10.0-20.0 Serum Glucose 191 H 74-106 mg/dL Calcium Level 9.8 8.7-10.4 mg/dL Digoxin Level 1.76 0.8-2 ng/mL Blood Gas Set Respiration Rate 12.0 Blood Gas Critical Value Read Back yes Blood Gas Notified Whom rajeev Alanis md Blood Gas Notified Time [id number] Blood Gas Notified By Test 03/01/25 03:20 03/01/25 00:00 02/28/25 18:14 02/28/25 13:38 Range/Units White Blood Count 8.9 # 4.4-10.8 10^3/uL Red Blood Count 2.91 L 4.0-5.20 10^6/uL Hemoglobin 8.9 L 12.2-16.2 g/dL Hematocrit 27.6 L 36.0-46.0 % Mean Corpuscular Volume 94.9 80.0-100.0 fL Mean Corpuscular Hemoglobin 30.7 28.0-32.0 pg Mean Corpuscular Hemoglobin Concent 32.3 32.0-36.0 g/dL Red Cell Distribution Width 21.6 H 11.8-14.3 % Platelet Count 128 L 140-450 10^3/uL Mean Platelet Volume 8.8 6.9-10.8 fL Neutrophils (%) (Auto) 91.4 H 37.0-80.0 % Lymphocytes (%) (Auto) 4.3 L 10.0-50.0 % Monocytes (%) (Auto) 4.2 0.0-12.0 % Eosinophils (%) (Auto) 0.0 0.0-7.0 % Basophils (%) (Auto) 0.1 0.0-2.0 % Neutrophils # (Auto) 8.2 1.6-8.6 10 ^3/uL Lymphocytes # (Auto) 0.4 0.4-5.4 10 ^3/uL Monocytes # (Auto) 0.4 0-1.3 10 ^3/uL Eosinophils # (Auto) 0 0-0.8 10 ^3/uL Basophils # (Auto) 0 0-0.2 10 ^3/uL Nucleated Red Blood Cells 0.1 % Platelet Estimate Decreased Anisocytosis (manual) Slight Ovalocytes Few Stomatocytes Few Sodium Level 138 138 136-145 mmol/L Potassium Level 3.3 L 3.4 L 3.2 L 3.5-5.1 mmol/L Chloride Level 92 L 95 L 98-107 mmol/L Carbon Dioxide Level 34 H 35 H 20-31 mmol/L Anion Gap 12 8 5-15 Blood Urea Nitrogen 63 H 61 H 9-23 mg/dL Creatinine 2.42 H 2.42 H 0.550-1.02 mg/dL Glomerular Filtration Rate Calc 21 21 >90 mL/min BUN/Creatinine Ratio 26.0 H 25.2 H 10.0-20.0 Serum Glucose 220 H 221 H 74-106 mg/dL Calcium Level 10.2 10.0 8.7-10.4 mg/dL Magnesium Level 2.6 1.6-2.6 mg/dL Total Bilirubin 0.7 0.2-1.0 mg/dL Aspartate Amino Transferase (AST) 33 13-40 U/L Alanine Aminotransferase (ALT) 37 7-40 U/L Alkaline Phosphatase 143 H 46-116 U/L Total Protein 6.7 5.7-8.2 g/dL Albumin 3.9 3.2-4.8 g/dL Blood Gas Specimen Type Arterial Blood Gas Sample Site Left radial Blood Gas Patient Temperature 37.0 Arterial Blood Date Drawn [id number] Arterial Blood pH 7.472 H 7.350-7.450 Arterial Blood Partial Pressure CO2 45.1 H 32.0-45.0 mmHg Arterial Blood Partial Pressure O2 78.9 L 83.0-108.0 mmHg Arterial Blood HCO3 32.2 H 21.0-28.0 mmol/L Arterial Blood Oxygen Saturation 95.6 94.0-98.0 % Arterial Blood Base Excess 7.8 H -2.0-3.0 mmol/L Arterial Blood Oxyhemoglobin 95.0 94.0-98.0 % Arterial Blood Carboxyhemoglobin 0.5 0.5-1.5 % Arterial Blood Methemoglobin 0.1 0.0-1.5 % Rodrigo Test Yes Blood Gas Total Hemoglobin 9.00 L 12.0-16.0 g/dL Blood Gas Modality Mask - bipap Blood Gas Spontaneous Rate 25 FiO2 % 40.0 Blood Gas Spontaneous Tidal Volume 457 Blood Gas EPAP 7 Blood Gas IPAP 14 Test 02/28/25 11:40 02/28/25 10:20 02/28/25 06:25 02/28/25 03:40 Range/Units POC Glucose 183 H 188 H 70-106 mg/dl Blood Gas Specimen Type Arterial Blood Gas Sample Site Right radial Blood Gas Patient Temperature 37.0 Arterial Blood Date Drawn [id number] Arterial Blood pH 7.466 H 7.350-7.450 Arterial Blood Partial Pressure CO2 49.8 H 32.0-45.0 mmHg Arterial Blood Partial Pressure O2 67.2 L 83.0-108.0 mmHg Arterial Blood HCO3 35.1 H 21.0-28.0 mmol/L Arterial Blood Oxygen Saturation 93.4 L 94.0-98.0 % Arterial Blood Base Excess 10.2 H -2.0-3.0 mmol/L Arterial Blood Oxyhemoglobin 91.8 L 94.0-98.0 % Arterial Blood Carboxyhemoglobin 1.5 0.5-1.5 % Arterial Blood Methemoglobin 0.2 0.0-1.5 % Rodrigo Test Modified Blood Gas Total Hemoglobin 8.40 L 12.0-16.0 g/dL Blood Gas Modality Vent - cpap Blood Gas Spontaneous Rate 24 FiO2 % 35.0 Blood Gas Spontaneous Tidal Volume 462 Blood Gas Pressure Support 7 Blood Gas PEEP or CPAP 5.0 White Blood Count 6.1 # 4.4-10.8 10^3/uL Red Blood Count 2.69 L 4.0-5.20 10^6/uL Hemoglobin 8.2 L 12.2-16.2 g/dL Hematocrit 25.3 L 36.0-46.0 % Mean Corpuscular Volume 93.8 80.0-100.0 fL Mean Corpuscular Hemoglobin 30.3 28.0-32.0 pg Mean Corpuscular Hemoglobin Concent 32.3 32.0-36.0 g/dL Red Cell Distribution Width 21.9 H 11.8-14.3 % Platelet Count 71 L 140-450 10^3/uL Mean Platelet Volume 8.8 6.9-10.8 fL Neutrophils (%) (Auto) 92.9 H 37.0-80.0 % Lymphocytes (%) (Auto) 4.0 L 10.0-50.0 % Monocytes (%) (Auto) 3.0 0.0-12.0 % Eosinophils (%) (Auto) 0.0 0.0-7.0 % Basophils (%) (Auto) 0.1 0.0-2.0 % Neutrophils # (Auto) 5.6 1.6-8.6 10 ^3/uL Lymphocytes # (Auto) 0.2 L 0.4-5.4 10 ^3/uL Monocytes # (Auto) 0.2 0-1.3 10 ^3/uL Eosinophils # (Auto) 0 0-0.8 10 ^3/uL Basophils # (Auto) 0 0-0.2 10 ^3/uL Nucleated Red Blood Cells 0.1 % Platelet Estimate Decreased Anisocytosis (manual) Slight Stomatocytes Few Sodium Level 138 136-145 mmol/L Potassium Level 3.2 L 3.5-5.1 mmol/L Chloride Level 96 L 98-107 mmol/L Carbon Dioxide Level 36 H 20-31 mmol/L Anion Gap 6 5-15 Blood Urea Nitrogen 55 H 9-23 mg/dL Creatinine 1.98 H 0.550-1.02 mg/dL Glomerular Filtration Rate Calc 27 >90 mL/min BUN/Creatinine Ratio 27.8 H 10.0-20.0 Serum Glucose 177 H 74-106 mg/dL Calcium Level 9.5 8.7-10.4 mg/dL Magnesium Level 2.0 1.6-2.6 mg/dL Total Bilirubin 0.7 0.2-1.0 mg/dL Aspartate Amino Transferase (AST) 28 13-40 U/L Alanine Aminotransferase (ALT) 21 7-40 U/L Alkaline Phosphatase 108 46-116 U/L Total Protein 6.0 5.7-8.2 g/dL Albumin 3.4 3.2-4.8 g/dL Test 02/27/25 22:04 02/27/25 16:30 02/27/25 16:15 02/27/25 11:00 Range/Units POC Glucose 211 H 204 H 70-106 mg/dl Sodium Level 137 137 136-145 mmol/L Potassium Level 4.1 3.3 L 3.5-5.1 mmol/L Chloride Level 92 L 90 L 98-107 mmol/L Carbon Dioxide Level 39 H > 40 *H 20-31 mmol/L Anion Gap 6 6.90072 5-15 Blood Urea Nitrogen 53 H 53 H 9-23 mg/dL Creatinine 1.84 H 1.77 H 0.550-1.02 mg/dL Glomerular Filtration Rate Calc 29 31 >90 mL/min BUN/Creatinine Ratio 28.8 H 29.9 H 10.0-20.0 Serum Glucose 197 H 163 H 74-106 mg/dL Calcium Level 9.7 9.6 8.7-10.4 mg/dL Test 02/27/25 06:20 02/27/25 06:00 02/27/25 03:35 02/26/25 21:57 Range/Units POC Glucose 163 H 175 H 70-106 mg/dl Blood Gas Specimen Type Arterial Blood Gas Sample Site Right radial Blood Gas Patient Temperature 37.0 Arterial Blood Date Drawn [id number] Arterial Blood pH 7.529 H 7.350-7.450 Arterial Blood Partial Pressure CO2 42.2 32.0-45.0 mmHg Arterial Blood Partial Pressure O2 83.1 83.0-108.0 mmHg Arterial Blood HCO3 34.4 H 21.0-28.0 mmol/L Arterial Blood Oxygen Saturation 96.1 94.0-98.0 % Arterial Blood Base Excess 10.7 H -2.0-3.0 mmol/L Arterial Blood Oxyhemoglobin 95.5 94.0-98.0 % Arterial Blood Carboxyhemoglobin 0.3 L 0.5-1.5 % Arterial Blood Methemoglobin 0.3 0.0-1.5 % Rodrigo Test Modified Blood Gas Total Hemoglobin 9.30 L 12.0-16.0 g/dL Blood Gas Set Respiration Rate 22.0 Blood Gas Modality Vent - ac FiO2 % 35.0 Blood Gas Tidal Volume 450.0 Blood Gas PEEP or CPAP 8.0 White Blood Count 15.8 H 4.4-10.8 10^3/uL Red Blood Count 2.72 L 4.0-5.20 10^6/uL Hemoglobin 8.3 L 12.2-16.2 g/dL Hematocrit 25.2 L 36.0-46.0 % Mean Corpuscular Volume 92.6 80.0-100.0 fL Mean Corpuscular Hemoglobin 30.5 28.0-32.0 pg Mean Corpuscular Hemoglobin Concent 33.0 32.0-36.0 g/dL Red Cell Distribution Width 22.0 H 11.8-14.3 % Platelet Count 88 L 140-450 10^3/uL Mean Platelet Volume 8.6 6.9-10.8 fL Neutrophils (%) (Auto) 86.7 H 37.0-80.0 % Lymphocytes (%) (Auto) 5.6 L 10.0-50.0 % Monocytes (%) (Auto) 6.5 0.0-12.0 % Eosinophils (%) (Auto) 0.8 0.0-7.0 % Basophils (%) (Auto) 0.4 0.0-2.0 % Neutrophils # (Auto) 13.7 H 1.6-8.6 10 ^3/uL Lymphocytes # (Auto) 0.9 0.4-5.4 10 ^3/uL Monocytes # (Auto) 1.0 0-1.3 10 ^3/uL Eosinophils # (Auto) 0.1 0-0.8 10 ^3/uL Basophils # (Auto) 0.1 0-0.2 10 ^3/uL Nucleated Red Blood Cells 0.1 % Sodium Level 136 136-145 mmol/L Potassium Level 3.1 L 3.5-5.1 mmol/L Chloride Level 90 L 98-107 mmol/L Carbon Dioxide Level 40 H 20-31 mmol/L Anion Gap 6 5-15 Blood Urea Nitrogen 54 H 9-23 mg/dL Creatinine 1.72 H 0.550-1.02 mg/dL Glomerular Filtration Rate Calc 32 >90 mL/min BUN/Creatinine Ratio 31.4 H 10.0-20.0 Serum Glucose 147 H 74-106 mg/dL Calcium Level 9.4 8.7-10.4 mg/dL Magnesium Level 1.8 1.6-2.6 mg/dL Total Bilirubin 0.6 0.2-1.0 mg/dL Aspartate Amino Transferase (AST) 20 13-40 U/L Alanine Aminotransferase (ALT) 13 7-40 U/L Alkaline Phosphatase 76 46-116 U/L Total Protein 5.8 5.7-8.2 g/dL Albumin 3.3 3.2-4.8 g/dL Test 02/26/25 19:31 02/26/25 17:23 02/26/25 11:01 02/26/25 09:53 Range/Units Sodium Level 134 L 136-145 mmol/L Potassium Level 3.5 3.5-5.1 mmol/L Chloride Level 90 L 98-107 mmol/L Carbon Dioxide Level 38 H 20-31 mmol/L Anion Gap 6 5-15 Blood Urea Nitrogen 51 H 9-23 mg/dL Creatinine 1.78 H 0.550-1.02 mg/dL Glomerular Filtration Rate Calc 31 >90 mL/min BUN/Creatinine Ratio 28.7 H 10.0-20.0 Serum Glucose 198 H 74-106 mg/dL Calcium Level 9.6 8.7-10.4 mg/dL POC Glucose 187 H 193 H 70-106 mg/dl Blood Gas Specimen Type Arterial Blood Gas Sample Site Right radial Blood Gas Patient Temperature 37.0 Arterial Blood Date Drawn [id number] Arterial Blood pH 7.534 H 7.350-7.450 Arterial Blood Partial Pressure CO2 43.6 32.0-45.0 mmHg Arterial Blood Partial Pressure O2 87.4 83.0-108.0 mmHg Arterial Blood HCO3 35.9 H 21.0-28.0 mmol/L Arterial Blood Oxygen Saturation 96.7 94.0-98.0 % Arterial Blood Base Excess 12.1 H -2.0-3.0 mmol/L Arterial Blood Oxyhemoglobin 96.1 94.0-98.0 % Arterial Blood Carboxyhemoglobin 0.3 L 0.5-1.5 % Arterial Blood Methemoglobin 0.3 0.0-1.5 % Rodrigo Test Yes Blood Gas Total Hemoglobin 10.00 L 12.0-16.0 g/dL Blood Gas Modality Vent - cpap FiO2 % 40.0 Blood Gas Pressure Support 8 Blood Gas PEEP or CPAP 5.0 Test 02/26/25 07:43 02/26/25 06:24 02/26/25 03:33 02/25/25 22:46 Range/Units Blood Gas Specimen Type Arterial Blood Gas Sample Site Right radial Blood Gas Patient Temperature 37.0 Arterial Blood Date Drawn [id number] Arterial Blood pH 7.525 H 7.350-7.450 Arterial Blood Partial Pressure CO2 47.4 H 32.0-45.0 mmHg Arterial Blood Partial Pressure O2 95.9 83.0-108.0 mmHg Arterial Blood HCO3 38.3 H 21.0-28.0 mmol/L Arterial Blood Oxygen Saturation 97.2 94.0-98.0 % Arterial Blood Base Excess 14.0 H -2.0-3.0 mmol/L Arterial Blood Oxyhemoglobin 96.6 94.0-98.0 % Arterial Blood Carboxyhemoglobin 0.3 L 0.5-1.5 % Arterial Blood Methemoglobin 0.3 0.0-1.5 % Rodrigo Test Yes Blood Gas Total Hemoglobin 9.80 L 12.0-16.0 g/dL Blood Gas Set Respiration Rate 22.0 Blood Gas Modality Vent - ac FiO2 % 40.0 Blood Gas Tidal Volume 450.0 Blood Gas PEEP or CPAP 8.0 POC Glucose 280 H 252 H 70-106 mg/dl White Blood Count 13.3 #H 4.4-10.8 10^3/uL Red Blood Count 3.03 L 4.0-5.20 10^6/uL Hemoglobin 9.0 L 12.2-16.2 g/dL Hematocrit 27.9 L 36.0-46.0 % Mean Corpuscular Volume 91.9 80.0-100.0 fL Mean Corpuscular Hemoglobin 29.8 28.0-32.0 pg Mean Corpuscular Hemoglobin Concent 32.4 32.0-36.0 g/dL Red Cell Distribution Width 22.6 H 11.8-14.3 % Platelet Count 99 L 140-450 10^3/uL Mean Platelet Volume 8.7 6.9-10.8 fL Neutrophils (%) (Auto) 88.7 H 37.0-80.0 % Lymphocytes (%) (Auto) 4.8 L 10.0-50.0 % Monocytes (%) (Auto) 6.2 0.0-12.0 % Eosinophils (%) (Auto) 0.1 0.0-7.0 % Basophils (%) (Auto) 0.2 0.0-2.0 % Neutrophils # (Auto) 11.8 H 1.6-8.6 10 ^3/uL Lymphocytes # (Auto) 0.6 0.4-5.4 10 ^3/uL Monocytes # (Auto) 0.8 0-1.3 10 ^3/uL Eosinophils # (Auto) 0 0-0.8 10 ^3/uL Basophils # (Auto) 0 0-0.2 10 ^3/uL Nucleated Red Blood Cells 0.1 % Platelet Estimate Decreased Clumped Platelets Few Anisocytosis (manual) Slight Ovalocytes Few Stomatocytes Few Sodium Level 134 L 136-145 mmol/L Potassium Level 3.0 L 3.5-5.1 mmol/L Chloride Level 89 L 98-107 mmol/L Carbon Dioxide Level 38 H 20-31 mmol/L Anion Gap 7 5-15 Blood Urea Nitrogen 54 H 9-23 mg/dL Creatinine 1.76 H 0.550-1.02 mg/dL Glomerular Filtration Rate Calc 31 >90 mL/min BUN/Creatinine Ratio 30.7 H 10.0-20.0 Serum Glucose 226 H 74-106 mg/dL Calcium Level 9.6 8.7-10.4 mg/dL Total Bilirubin 0.6 0.2-1.0 mg/dL Aspartate Amino Transferase (AST) 18 13-40 U/L Alanine Aminotransferase (ALT) 14 7-40 U/L Alkaline Phosphatase 79 46-116 U/L Total Protein 6.0 5.7-8.2 g/dL Albumin 3.3 3.2-4.8 g/dL Test 02/25/25 18:45 02/25/25 16:29 02/25/25 16:10 02/25/25 13:00 Range/Units Hemoglobin 8.7 L 12.2-16.2 g/dL Hematocrit 26.8 #L 36.0-46.0 % POC Glucose 230 H 70-106 mg/dl Free Thyroxine (T4) Calculated 1.36 0.89-1.76 ng/dL Total Triiodothyronine (TT3) 0.53 L 0.60-1.81 ng/mL Influenza Type A Antigen Negative Negative Influenza Type B Antigen Negative Negative SARS-CoV-2 Antigen (Rapid) Negative NEGATIVE Test 02/25/25 12:26 02/25/25 10:20 02/25/25 06:58 02/25/25 06:28 Range/Units POC Glucose 212 H 254 H 70-106 mg/dl Blood Gas Specimen Type Arterial Arterial Blood Gas Sample Site Left radial Left radial Blood Gas Patient Temperature 37.0 37.0 Arterial Blood Date Drawn [id number] Arterial Blood pH 7.500 H 7.560 *H 7.350-7.450 Arterial Blood Partial Pressure CO2 46.5 H 37.8 32.0-45.0 mmHg Arterial Blood Partial Pressure O2 70.3 L 62.1 L 83.0-108.0 mmHg Arterial Blood HCO3 35.4 H 33.1 H 21.0-28.0 mmol/L Arterial Blood Oxygen Saturation 93.9 L 92.5 L 94.0-98.0 % Arterial Blood Base Excess 11.0 H 10.2 H -2.0-3.0 mmol/L Arterial Blood Oxyhemoglobin 93.4 L 92.0 L 94.0-98.0 % Arterial Blood Carboxyhemoglobin 0.3 L 0.3 L 0.5-1.5 % Arterial Blood Methemoglobin 0.2 0.2 0.0-1.5 % Rodrigo Test Modified Modified Blood Gas Total Hemoglobin 11.40 L 11.10 L 12.0-16.0 g/dL Blood Gas Set Respiration Rate 22.0 28.0 Blood Gas Modality Vent - ac Vent - ac FiO2 % 40.0 40.0 Blood Gas Tidal Volume 450.0 450.0 Blood Gas PEEP or CPAP 8.0 8.0 Blood Gas Critical Value Read Back yes Blood Gas Notified Whom Blood Gas Notified Time [id number] Blood Gas Notified By dk martin Test 02/25/25 03:00 02/24/25 22:07 02/24/25 17:37 02/24/25 12:05 Range/Units White Blood Count 6.0 4.4-10.8 10^3/uL Red Blood Count 3.30 L 4.0-5.20 10^6/uL Hemoglobin 10.2 L 12.2-16.2 g/dL Hematocrit 30.5 L 36.0-46.0 % Mean Corpuscular Volume 92.7 80.0-100.0 fL Mean Corpuscular Hemoglobin 31.1 28.0-32.0 pg Mean Corpuscular Hemoglobin Concent 33.5 32.0-36.0 g/dL Red Cell Distribution Width 24.2 H 11.8-14.3 % Platelet Count 100 L 140-450 10^3/uL Mean Platelet Volume 8.3 6.9-10.8 fL Neutrophils (%) (Auto) 90.1 H 37.0-80.0 % Lymphocytes (%) (Auto) 4.1 L 10.0-50.0 % Monocytes (%) (Auto) 5.8 0.0-12.0 % Eosinophils (%) (Auto) 0.0 0.0-7.0 % Basophils (%) (Auto) 0.0 0.0-2.0 % Neutrophils # (Auto) 5.4 1.6-8.6 10 ^3/uL Lymphocytes # (Auto) 0.2 L 0.4-5.4 10 ^3/uL Monocytes # (Auto) 0.3 0-1.3 10 ^3/uL Eosinophils # (Auto) 0 0-0.8 10 ^3/uL Basophils # (Auto) 0 0-0.2 10 ^3/uL Nucleated Red Blood Cells 0.2 % Platelet Estimate Decreased Clumped Platelets Few Anisocytosis (manual) Moderate Sodium Level 134 L 136-145 mmol/L Potassium Level 3.6 3.5-5.1 mmol/L Chloride Level 90 L 98-107 mmol/L Carbon Dioxide Level 37 H 20-31 mmol/L Anion Gap 7 5-15 Blood Urea Nitrogen 54 H 9-23 mg/dL Creatinine 1.89 H 0.550-1.02 mg/dL Glomerular Filtration Rate Calc 28 >90 mL/min BUN/Creatinine Ratio 28.6 H 10.0-20.0 Serum Glucose 223 H 74-106 mg/dL Hemoglobin A1c 5.3 <5.7 % A1C Calcium Level 9.9 8.7-10.4 mg/dL Magnesium Level 2.1 1.6-2.6 mg/dL B-Type Natriuretic Peptide 168.53 0-100 pg/mL Triglycerides Level 116 < 150 mg/dL Cholesterol Level 209 H < 200 mg/dL LDL Cholesterol 124 H < 100 mg/dL HDL Cholesterol 64 H 40-59 mg/dL POC Glucose 227 H 262 H 218 H 70-106 mg/dl Test 02/24/25 07:22 02/24/25 06:00 02/24/25 03:20 02/23/25 21:56 Range/Units Blood Gas Specimen Type Arterial Blood Gas Sample Site Right radial Blood Gas Patient Temperature 37.0 Arterial Blood Date Drawn [id number] Arterial Blood pH 7.512 H 7.350-7.450 Arterial Blood Partial Pressure CO2 40.8 32.0-45.0 mmHg Arterial Blood Partial Pressure O2 67.5 L 83.0-108.0 mmHg Arterial Blood HCO3 32.0 H 21.0-28.0 mmol/L Arterial Blood Oxygen Saturation 93.8 L 94.0-98.0 % Arterial Blood Base Excess 8.3 H -2.0-3.0 mmol/L Arterial Blood Oxyhemoglobin 93.2 L 94.0-98.0 % Arterial Blood Carboxyhemoglobin 0.3 L 0.5-1.5 % Arterial Blood Methemoglobin 0.3 0.0-1.5 % Rodrigo Test Modified Blood Gas Total Hemoglobin 12.00 12.0-16.0 g/dL Blood Gas Set Respiration Rate 28.0 Blood Gas Modality Vent - ac FiO2 % 40.0 Blood Gas Tidal Volume 450.0 Blood Gas PEEP or CPAP 8.0 Specimen Drawn By Gabby mock up maker POC Glucose 195 H 189 H 70-106 mg/dl White Blood Count 6.0 # 4.4-10.8 10^3/uL Red Blood Count 3.54 L 4.0-5.20 10^6/uL Hemoglobin 10.4 L 12.2-16.2 g/dL Hematocrit 32.9 #L 36.0-46.0 % Mean Corpuscular Volume 92.8 80.0-100.0 fL Mean Corpuscular Hemoglobin 29.3 28.0-32.0 pg Mean Corpuscular Hemoglobin Concent 31.6 L 32.0-36.0 g/dL Red Cell Distribution Width 24.2 H 11.8-14.3 % Platelet Count 150 140-450 10^3/uL Mean Platelet Volume 8.3 6.9-10.8 fL Neutrophils (%) (Auto) 92.1 H 37.0-80.0 % Lymphocytes (%) (Auto) 3.2 L 10.0-50.0 % Monocytes (%) (Auto) 4.6 0.0-12.0 % Eosinophils (%) (Auto) 0.0 0.0-7.0 % Basophils (%) (Auto) 0.1 0.0-2.0 % Neutrophils # (Auto) 5.6 1.6-8.6 10 ^3/uL Lymphocytes # (Auto) 0.2 L 0.4-5.4 10 ^3/uL Monocytes # (Auto) 0.3 0-1.3 10 ^3/uL Eosinophils # (Auto) 0 0-0.8 10 ^3/uL Basophils # (Auto) 0 0-0.2 10 ^3/uL Nucleated Red Blood Cells 0.1 % Platelet Estimate Adequate Anisocytosis (manual) Moderate Sodium Level 132 L 136-145 mmol/L Potassium Level 3.7 3.5-5.1 mmol/L Chloride Level 91 L 98-107 mmol/L Carbon Dioxide Level 33 H 20-31 mmol/L Anion Gap 8 5-15 Blood Urea Nitrogen 53 H 9-23 mg/dL Creatinine 1.97 H 0.550-1.02 mg/dL Glomerular Filtration Rate Calc 27 >90 mL/min BUN/Creatinine Ratio 26.9 H 10.0-20.0 Serum Glucose 188 H 74-106 mg/dL Calcium Level 9.8 8.7-10.4 mg/dL Test 02/23/25 17:12 02/23/25 11:53 02/23/25 10:09 02/23/25 08:17 Range/Units POC Glucose 218 H 243 H 228 H 70-106 mg/dl Blood Gas Specimen Type Arterial Blood Gas Sample Site Right radial Blood Gas Patient Temperature 37.0 Arterial Blood Date Drawn [id number] Arterial Blood pH 7.452 H 7.350-7.450 Arterial Blood Partial Pressure CO2 42.2 32.0-45.0 mmHg Arterial Blood Partial Pressure O2 81.3 L 83.0-108.0 mmHg Arterial Blood HCO3 28.8 H 21.0-28.0 mmol/L Arterial Blood Oxygen Saturation 95.5 94.0-98.0 % Arterial Blood Base Excess 4.4 H -2.0-3.0 mmol/L Arterial Blood Oxyhemoglobin 95.2 94.0-98.0 % Arterial Blood Carboxyhemoglobin 0.3 L 0.5-1.5 % Arterial Blood Methemoglobin 0.0 0.0-1.5 % Rodrigo Test Modified Blood Gas Total Hemoglobin 12.10 12.0-16.0 g/dL Blood Gas Set Respiration Rate 28.0 Blood Gas Modality Vent - ac FiO2 % 45.0 Blood Gas Tidal Volume 450.0 Blood Gas PEEP or CPAP 8.0 Test 02/23/25 05:47 02/23/25 03:11 02/22/25 21:07 02/22/25 16:35 Range/Units POC Glucose 222 H 208 H 202 H 70-106 mg/dl White Blood Count 2.9 L 4.4-10.8 10^3/uL Red Blood Count 2.95 L 4.0-5.20 10^6/uL Hemoglobin 9.2 L 12.2-16.2 g/dL Hematocrit 27.7 #L 36.0-46.0 % Mean Corpuscular Volume 93.9 80.0-100.0 fL Mean Corpuscular Hemoglobin 31.2 28.0-32.0 pg Mean Corpuscular Hemoglobin Concent 33.2 32.0-36.0 g/dL Red Cell Distribution Width 24.0 H 11.8-14.3 % Platelet Count 104 L 140-450 10^3/uL Mean Platelet Volume 8.0 6.9-10.8 fL Neutrophils (%) (Auto) 89.1 H 37.0-80.0 % Lymphocytes (%) (Auto) 6.0 L 10.0-50.0 % Monocytes (%) (Auto) 4.6 0.0-12.0 % Eosinophils (%) (Auto) 0.0 0.0-7.0 % Basophils (%) (Auto) 0.3 0.0-2.0 % Neutrophils # (Auto) 2.6 1.6-8.6 10 ^3/uL Lymphocytes # (Auto) 0.2 L 0.4-5.4 10 ^3/uL Monocytes # (Auto) 0.1 0-1.3 10 ^3/uL Eosinophils # (Auto) 0 0-0.8 10 ^3/uL Basophils # (Auto) 0 0-0.2 10 ^3/uL Nucleated Red Blood Cells 0.3 % Sodium Level 132 L 136-145 mmol/L Potassium Level 4.0 3.5-5.1 mmol/L Chloride Level 91 L 98-107 mmol/L Carbon Dioxide Level 30 20-31 mmol/L Anion Gap 11 5-15 Blood Urea Nitrogen 51 H 9-23 mg/dL Creatinine 2.04 H 0.550-1.02 mg/dL Glomerular Filtration Rate Calc 26 >90 mL/min BUN/Creatinine Ratio 25.0 H 10.0-20.0 Serum Glucose 210 H 74-106 mg/dL Calcium Level 9.7 8.7-10.4 mg/dL Test 02/22/25 11:47 02/22/25 08:57 02/22/25 07:16 02/22/25 03:30 Range/Units POC Glucose 208 H 209 H 70-106 mg/dl Blood Gas Specimen Type Arterial Blood Gas Sample Site Left radial Blood Gas Patient Temperature 37.0 Arterial Blood Date Drawn [id number] Arterial Blood pH 7.390 7.350-7.450 Arterial Blood Partial Pressure CO2 44.7 32.0-45.0 mmHg Arterial Blood Partial Pressure O2 83.7 83.0-108.0 mmHg Arterial Blood HCO3 26.5 21.0-28.0 mmol/L Arterial Blood Oxygen Saturation 95.0 94.0-98.0 % Arterial Blood Base Excess 1.2 -2.0-3.0 mmol/L Arterial Blood Oxyhemoglobin 94.6 94.0-98.0 % Arterial Blood Carboxyhemoglobin 0.3 L 0.5-1.5 % Arterial Blood Methemoglobin 0.1 0.0-1.5 % Rodrigo Test Modified Blood Gas Total Hemoglobin 10.60 L 12.0-16.0 g/dL Blood Gas Set Respiration Rate 28.0 Blood Gas Modality Vent - ac FiO2 % 40.0 Blood Gas Tidal Volume 450.0 Blood Gas PEEP or CPAP 8.0 White Blood Count 4.4 4.4-10.8 10^3/uL Red Blood Count 3.33 L 4.0-5.20 10^6/uL Hemoglobin 10.1 L 12.2-16.2 g/dL Hematocrit 31.5 L 36.0-46.0 % Mean Corpuscular Volume 94.4 80.0-100.0 fL Mean Corpuscular Hemoglobin 30.3 28.0-32.0 pg Mean Corpuscular Hemoglobin Concent 32.1 32.0-36.0 g/dL Red Cell Distribution Width 24.4 H 11.8-14.3 % Platelet Count 117 L 140-450 10^3/uL Mean Platelet Volume 8.1 6.9-10.8 fL Neutrophils (%) (Auto) 92.0 H 37.0-80.0 % Lymphocytes (%) (Auto) 3.6 L 10.0-50.0 % Monocytes (%) (Auto) 4.4 0.0-12.0 % Eosinophils (%) (Auto) 0.0 0.0-7.0 % Basophils (%) (Auto) 0.0 0.0-2.0 % Neutrophils # (Auto) 4.0 1.6-8.6 10 ^3/uL Lymphocytes # (Auto) 0.2 L 0.4-5.4 10 ^3/uL Monocytes # (Auto) 0.2 0-1.3 10 ^3/uL Eosinophils # (Auto) 0 0-0.8 10 ^3/uL Basophils # (Auto) 0 0-0.2 10 ^3/uL Nucleated Red Blood Cells 0.1 % Sodium Level 132 L 136-145 mmol/L Potassium Level 4.5 3.5-5.1 mmol/L Chloride Level 92 L 98-107 mmol/L Carbon Dioxide Level 28 20-31 mmol/L Anion Gap 12 5-15 Blood Urea Nitrogen 52 H 9-23 mg/dL Creatinine 2.09 H 0.550-1.02 mg/dL Glomerular Filtration Rate Calc 25 >90 mL/min BUN/Creatinine Ratio 24.9 H 10.0-20.0 Serum Glucose 181 H 74-106 mg/dL Calcium Level 9.9 8.7-10.4 mg/dL Test 02/22/25 00:00 02/21/25 20:55 02/21/25 17:13 02/21/25 05:50 Range/Units White Blood Count 5.0 # 3.8 L 4.4-10.8 10^3/uL Red Blood Count 3.21 L 2.88 L 4.0-5.20 10^6/uL Hemoglobin 10.1 L 8.8 L 12.2-16.2 g/dL Hematocrit 30.1 L 27.8 L 36.0-46.0 % Mean Corpuscular Volume 93.9 96.5 80.0-100.0 fL Mean Corpuscular Hemoglobin 31.5 30.6 28.0-32.0 pg Mean Corpuscular Hemoglobin Concent 33.6 31.7 L 32.0-36.0 g/dL Red Cell Distribution Width 24.6 H 23.5 H 11.8-14.3 % Platelet Count 127 L 105 L 140-450 10^3/uL Mean Platelet Volume 8.3 8.4 6.9-10.8 fL Neutrophils (%) (Auto) 91.6 H 90.8 H 37.0-80.0 % Lymphocytes (%) (Auto) 5.3 L 5.9 L 10.0-50.0 % Monocytes (%) (Auto) 3.1 3.2 0.0-12.0 % Eosinophils (%) (Auto) 0.0 0.0 0.0-7.0 % Basophils (%) (Auto) 0.0 0.1 0.0-2.0 % Neutrophils # (Auto) 4.6 3.4 1.6-8.6 10 ^3/uL Lymphocytes # (Auto) 0.3 L 0.2 L 0.4-5.4 10 ^3/uL Monocytes # (Auto) 0.2 0.1 0-1.3 10 ^3/uL Eosinophils # (Auto) 0 0 0-0.8 10 ^3/uL Basophils # (Auto) 0 0 0-0.2 10 ^3/uL Nucleated Red Blood Cells 0.1 0.3 % Sodium Level 132 L 131 L 136-145 mmol/L Potassium Level 4.7 4.7 5.3 H 3.5-5.1 mmol/L Chloride Level 93 L 93 L 98-107 mmol/L Carbon Dioxide Level 30 29 20-31 mmol/L Anion Gap 9 9 5-15 Blood Urea Nitrogen 50 H 50 H 9-23 mg/dL Creatinine 2.05 H 2.26 H 0.550-1.02 mg/dL Glomerular Filtration Rate Calc 26 23 >90 mL/min BUN/Creatinine Ratio 24.4 H 22.1 H 10.0-20.0 Serum Glucose 164 H 122 H 74-106 mg/dL Calcium Level 9.8 9.3 8.7-10.4 mg/dL Total Bilirubin 0.6 0.6 0.2-1.0 mg/dL Aspartate Amino Transferase (AST) 19 19 13-40 U/L Alanine Aminotransferase (ALT) 14 12 7-40 U/L Alkaline Phosphatase 110 100 46-116 U/L Total Protein 6.8 6.0 5.7-8.2 g/dL Albumin 3.8 3.2 3.2-4.8 g/dL Lactic Acid Level 0.7 0.4-2.0 mmol/L Test 02/21/25 05:45 02/20/25 22:18 02/20/25 21:54 02/20/25 17:49 Range/Units Blood Gas Specimen Type Arterial Arterial Arterial Blood Gas Sample Site Right radial Left radial Left radial Blood Gas Patient Temperature 37.0 37.0 37.0 Arterial Blood Date Drawn [id number] Arterial Blood pH 7.422 7.384 7.379 7.350-7.450 Arterial Blood Partial Pressure CO2 38.1 43.8 47.0 H 32.0-45.0 mmHg Arterial Blood Partial Pressure O2 62.3 L 84.3 55.6 L 83.0-108.0 mmHg Arterial Blood HCO3 24.3 25.6 27.1 21.0-28.0 mmol/L Arterial Blood Oxygen Saturation 91.0 L 95.8 89.0 L 94.0-98.0 % Arterial Blood Base Excess 0.0 0.4 1.6 -2.0-3.0 mmol/L Arterial Blood Oxyhemoglobin 90.1 L 94.8 87.9 L 94.0-98.0 % Arterial Blood Carboxyhemoglobin 0.4 L 0.4 L 0.5 0.5-1.5 % Arterial Blood Methemoglobin 0.6 0.6 0.7 0.0-1.5 % Rodrigo Test Modified Modified Modified Blood Gas Total Hemoglobin 9.80 L 9.90 L 10.20 L 12.0-16.0 g/dL Blood Gas Set Respiration Rate 28.0 28.0 28.0 Blood Gas Modality Vent - ac Vent - ac Vent - ac FiO2 % 40.0 50.0 30.0 Blood Gas Tidal Volume 450.0 450.0 450.0 Blood Gas PEEP or CPAP 8.0 8.0 5.0 White Blood Count 4.7 # 4.4-10.8 10^3/uL Red Blood Count 2.95 L 4.0-5.20 10^6/uL Hemoglobin 9.0 L 12.2-16.2 g/dL Hematocrit 28.5 #L 36.0-46.0 % Mean Corpuscular Volume 96.7 # 80.0-100.0 fL Mean Corpuscular Hemoglobin 30.4 28.0-32.0 pg Mean Corpuscular Hemoglobin Concent 31.5 L 32.0-36.0 g/dL Red Cell Distribution Width 23.2 H 11.8-14.3 % Platelet Count 103 L 140-450 10^3/uL Mean Platelet Volume 8.2 6.9-10.8 fL Neutrophils (%) (Auto) 93.1 H 37.0-80.0 % Lymphocytes (%) (Auto) 4.8 L 10.0-50.0 % Monocytes (%) (Auto) 2.0 0.0-12.0 % Eosinophils (%) (Auto) 0.0 0.0-7.0 % Basophils (%) (Auto) 0.1 0.0-2.0 % Neutrophils # (Auto) 4.3 1.6-8.6 10 ^3/uL Lymphocytes # (Auto) 0.2 L 0.4-5.4 10 ^3/uL Monocytes # (Auto) 0.1 0-1.3 10 ^3/uL Eosinophils # (Auto) 0 0-0.8 10 ^3/uL Basophils # (Auto) 0 0-0.2 10 ^3/uL Nucleated Red Blood Cells 0.3 % Sodium Level 131 L 136-145 mmol/L Potassium Level 5.5 H 3.5-5.1 mmol/L Chloride Level 92 L 98-107 mmol/L Carbon Dioxide Level 28 20-31 mmol/L Anion Gap 11 5-15 Blood Urea Nitrogen 45 H 9-23 mg/dL Creatinine 2.42 H 0.550-1.02 mg/dL Glomerular Filtration Rate Calc 21 >90 mL/min BUN/Creatinine Ratio 18.6 10.0-20.0 Serum Glucose 114 H 74-106 mg/dL Calcium Level 9.1 8.7-10.4 mg/dL Test 02/20/25 11:40 02/20/25 09:40 02/20/25 07:52 02/20/25 04:18 Range/Units Blood Gas Specimen Type Arterial Arterial Arterial Blood Gas Sample Site Right radial Right radial Right radial Blood Gas Patient Temperature 37.0 37.0 37.0 Arterial Blood Date Drawn [id number] Arterial Blood pH 7.269 L 7.234 *L 7.148 *L 7.350-7.450 Arterial Blood Partial Pressure CO2 65.7 *H 71.7 *H 93.3 *H 32.0-45.0 mmHg Arterial Blood Partial Pressure O2 67.3 L 108.1 H 78.8 L 83.0-108.0 mmHg Arterial Blood HCO3 29.4 H 29.6 H 31.6 H 21.0-28.0 mmol/L Arterial Blood Oxygen Saturation 92.8 L 97.9 93.6 L 94.0-98.0 % Arterial Blood Base Excess 1.3 0.8 0.8 -2.0-3.0 mmol/L Arterial Blood Oxyhemoglobin 91.4 L 96.5 92.1 L 94.0-98.0 % Arterial Blood Carboxyhemoglobin 1.2 1.0 1.2 0.5-1.5 % Arterial Blood Methemoglobin 0.3 0.4 0.4 0.0-1.5 % Rodrigo Test Modified Modified Yes Blood Gas Total Hemoglobin 11.10 L 11.10 L 10.80 L 12.0-16.0 g/dL Blood Gas Set Respiration Rate 24.0 18.0 Blood Gas Modality Vent - ac Vent - ac Mask - bipap FiO2 % 50.0 60.0 50.0 Blood Gas Tidal Volume 500.0 500.0 Blood Gas PEEP or CPAP 5.0 5.0 Blood Gas Critical Value Read Back Yes Yes Yes Blood Gas Notified Whom jaskaran Francisco md, t. md Biswas, s. md Blood Gas Notified Time [id number] Blood Gas Notified By Sakina maier camera person Sakina maier camera person grant Lawson camera person White Blood Count 8.2 # 4.4-10.8 10^3/uL Red Blood Count 3.43 L 4.0-5.20 10^6/uL Hemoglobin 10.5 L 12.2-16.2 g/dL Hematocrit 35.1 L 36.0-46.0 % Mean Corpuscular Volume 102.4 #H 80.0-100.0 fL Mean Corpuscular Hemoglobin 30.6 28.0-32.0 pg Mean Corpuscular Hemoglobin Concent 29.9 L 32.0-36.0 g/dL Red Cell Distribution Width 24.0 H 11.8-14.3 % Platelet Count 128 L 140-450 10^3/uL Mean Platelet Volume 8.1 6.9-10.8 fL Neutrophils (%) (Auto) 83.4 H 37.0-80.0 % Lymphocytes (%) (Auto) 5.1 L 10.0-50.0 % Monocytes (%) (Auto) 11.3 0.0-12.0 % Eosinophils (%) (Auto) 0.1 0.0-7.0 % Basophils (%) (Auto) 0.1 0.0-2.0 % Neutrophils # (Auto) 6.8 1.6-8.6 10 ^3/uL Lymphocytes # (Auto) 0.4 0.4-5.4 10 ^3/uL Monocytes # (Auto) 0.9 0-1.3 10 ^3/uL Eosinophils # (Auto) 0 0-0.8 10 ^3/uL Basophils # (Auto) 0 0-0.2 10 ^3/uL Nucleated Red Blood Cells 0.7 % Sodium Level 128 L 136-145 mmol/L Potassium Level 5.7 *H 3.5-5.1 mmol/L Chloride Level 93 L 98-107 mmol/L Carbon Dioxide Level 28 20-31 mmol/L Anion Gap 7 5-15 Blood Urea Nitrogen 43 H 9-23 mg/dL Creatinine 2.57 H 0.550-1.02 mg/dL Glomerular Filtration Rate Calc 20 >90 mL/min BUN/Creatinine Ratio 16.7 10.0-20.0 Serum Glucose 97 74-106 mg/dL Calcium Level 9.6 8.7-10.4 mg/dL Test 02/19/25 19:01 02/19/25 15:21 02/19/25 13:11 02/19/25 11:28 Range/Units Urine Color Yellow Yellow Urine Clarity Turbid H Clear Urine pH 5.0 5.0-9.0 Urine Specific [place] 1.019 1.001-1.035 Urine Protein 2+ H Negative Urine Ketones Negative Negative Urine Blood 1+ H Negative /uL Urine Nitrite Negative Negative Urine Bilirubin Negative Negative Urine Urobilinogen Normal Negative mg/dL Urine Leukocyte Esterase Trace Negative /uL Urine RBC 6 0 - 4 /hpf Urine Microscopic WBC 14 H 0-5 /HPF Urine Squamous Epithelial Cells Few <5 /hpf Urine Bacteria None seen None Seen /hpf Urine Hyaline Casts Many 0 - 2 /lpf Urine Glucose Normal Normal mg/dL Troponin I High Sensitivity 48 *H 44 *H 42 *H </=34 ng/L Sodium Level 129 L 136-145 mmol/L Potassium Level 6.5 *H 3.5-5.1 mmol/L Chloride Level 89 L 98-107 mmol/L Carbon Dioxide Level 27 20-31 mmol/L Anion Gap 13 5-15 Blood Urea Nitrogen 42 H 9-23 mg/dL Creatinine 2.32 H 0.550-1.02 mg/dL Glomerular Filtration Rate Calc 22 >90 mL/min BUN/Creatinine Ratio 18.1 10.0-20.0 Serum Glucose 89 74-106 mg/dL Calcium Level 9.8 8.7-10.4 mg/dL Total Bilirubin 0.9 0.2-1.0 mg/dL Aspartate Amino Transferase (AST) 31 13-40 U/L Alanine Aminotransferase (ALT) 16 7-40 U/L Alkaline Phosphatase 137 H 46-116 U/L Total Protein 7.9 5.7-8.2 g/dL Albumin 4.4 3.2-4.8 g/dL White Blood Count 5.7 4.4-10.8 10^3/uL Red Blood Count 3.33 L 4.0-5.20 10^6/uL Hemoglobin 10.2 L 12.2-16.2 g/dL Hematocrit 32.6 L 36.0-46.0 % Mean Corpuscular Volume 97.9 80.0-100.0 fL Mean Corpuscular Hemoglobin 30.5 28.0-32.0 pg Mean Corpuscular Hemoglobin Concent 31.1 L 32.0-36.0 g/dL Red Cell Distribution Width 24.2 H 11.8-14.3 % Platelet Count 124 L 140-450 10^3/uL Mean Platelet Volume 8.3 6.9-10.8 fL Neutrophils (%) (Auto) 79.5 37.0-80.0 % Lymphocytes (%) (Auto) 10.0 10.0-50.0 % Monocytes (%) (Auto) 10.1 0.0-12.0 % Eosinophils (%) (Auto) 0.1 0.0-7.0 % Basophils (%) (Auto) 0.3 0.0-2.0 % Neutrophils # (Auto) 4.6 1.6-8.6 10 ^3/uL Lymphocytes # (Auto) 0.6 0.4-5.4 10 ^3/uL Monocytes # (Auto) 0.6 0-1.3 10 ^3/uL Eosinophils # (Auto) 0 0-0.8 10 ^3/uL Basophils # (Auto) 0 0-0.2 10 ^3/uL Nucleated Red Blood Cells 0.7 % Platelet Estimate Decreased Anisocytosis (manual) Slight B-Type Natriuretic Peptide 551.22 0-100 pg/mL Thyroid Stimulating Hormone (TSH) 6.93 H 0.55-4.78 uIU/mL Microbiology Date/Time Source Procedure Growth Status 02/21/25 11:22 Blood Blood Culture - Final NO GROWTH AFTER 5 DAYS OF INCUBATION. Complete 02/21/25 09:30 Nose MRSA Screen - Final Complete 02/21/25 09:30 Voided Urine Urine Culture - Final Complete 02/20/25 18:28 Bronchial Washings Gram Stain - Final Complete 02/20/25 18:28 Bronchial Washings Respiratory Culture - Final Complete Assessment Acute kidney injury likely ATN Acute hypoxic respiratory failure status post intubation and extubation currently on BiPAP Atrial fibrillation with RVR Anemia Vaginal bleeding Morbid obesity BMI greater than 50 Congestive heart failure Pulmonary hypertension Severe tricuspid regurg Recommendations Check urine protein creatinine ratio urine electrolytes, urine analysis Kidney ultrasound Bumex drip IV as ordered Currently remains oliguric 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 Thank you for allowing me to participate in the care of your patient. Plan discussed with: Patient, Spouse NAEEM PHELPS MD Mar 02, 2025 15:21
[2025-03-02] MEDS: LEVALBUTEROL HCL 1.25 MG/3 ML NEB NEB SCH (18:06)
[2025-03-02] MEDS: PHENYLEPHRINE IV 250 ML IV ONE (19:12)
--- NOTE | 2025-03-02 20:16 | DVHPN2 ---
Progress Note - Dictate Date Seen: Mar 02, 2025 Medical Necessity Reason Pt with a Central, PICC or Fol: Yes The following are medically ne: Serrano Catheter Reason for serrano catheter: Strict I&O Subjective Patient seen and examined at bedside. S/p extubation, currently on BiPAP Overnight events reviewed. vital signs Vital Sign Date Time Temp Pulse Resp B/P (MAP) Pulse Ox O2 Delivery O2 Flow Rate FiO2 03/02/25 20:04 112 125/77 93 Facial BiPAP Mask 50 03/02/25 19:15 20 03/02/25 16:00 98.3 98.3 02/28/25 16:00 10 Total Intake and Output 03/01/25 03/01/25 03/02/25 15:00 23:00 07:00 Intake Total 308.28 ml 263.28 ml 233.28 ml Output Total 150 ml 100 ml Balance 308.28 ml 113.28 ml 133.28 ml medications Current Medications Medications Dose Ordered Sig/Adolfo Route Start Time Stop Time Status Last Admin Dose Admin Nitroglycerin 0.4 mg Q5MINP PRN SL 02/19/25 15:15 Ipratropium Brady 0.5 mg Q6HR NEB 02/19/25 18:00 03/02/25 18:06 0.5 MG Doxycycline Hyclate 100 ml @ 50 mls/hr Q12H IV 02/20/25 10:00 03/02/25 12:35 50 MLS/HR Diagnostic Test (Pha) 1 strip ACHS 02/22/25 07:19 03/02/25 17:38 1 STRIP Insulin Human Regular ACHS SC 02/22/25 07:19 03/02/25 17:38 4 UNITS Dextrose 50 ml UD PRN IV 02/22/25 07:15 Pantoprazole Sodium 40 mg DAILY IV 02/26/25 10:00 03/02/25 10:48 40 MG Atorvastatin Calcium 40 mg HS PO 02/25/25 22:00 03/01/25 22:58 40 MG Enteral Nutritional Formula 1,000 ml 30ML/HR GT 02/25/25 14:30 02/26/25 15:51 1,000 ML Acetaminophen/ Hydrocodone Bitart 1 tab Q4HP PRN PO 02/26/25 09:45 02/28/25 22:44 1 TAB Digoxin 0.125 mg EOD PO 02/28/25 10:00 03/02/25 10:52 0.125 MG Lactulose 30 ml TID PO 02/27/25 14:00 03/02/25 13:58 30 ML Methylprednisolone Sodium Succinate 60 mg Q8HR IV 02/27/25 14:00 03/02/25 13:58 60 MG Metoclopramide HCl 5 mg Q6HR IV 02/27/25 18:00 03/02/25 17:52 5 MG Metoprolol Tartrate 25 mg BID PO 03/02/25 10:00 03/02/25 10:49 25 MG Bumetanide 25 mg/ Miscellaneous 100 ml @ 4 mls/hr Q24H IV 03/02/25 09:00 03/02/25 09:00 4 MLS/HR Levalbuterol HCl 1.25 mg Q6HR NEB 03/02/25 18:00 03/02/25 18:06 1.25 MG objective Gen.: Patient lying in bed in no apparent distress. On BiPAP Head: Normocephalic, atraumatic. Eyes: EOMI/PERRLA. Ears: Normal hearing. Normal anatomy. Neck/trachea: Trachea midline, supple. Nose: Normal external anatomy. Mouth: Moist mucous membranes. Chest: Decreased air entry bilaterally. No wheezing or rhonchi. Cardiovascular: Positive S1, positive S2. Regular rate and rhythm. Abdomen: Positive bowel sounds in all 4 quadrants. Soft, non-tender, non- distended. : Deferred. Rectal: Deferred. Skin: Warm, dry. Intact. Extremities: 2+ radial pulses bilaterally. No lower extremity edema. Neuro: Awake, alert, oriented x3. No gross motor or sensory deficits. Cranial nerves II through XII intact. Gait not assessed. laboratory and microbiology Laboratory Tests 03/02/25 03:23 Test 03/02/25 03:23 Range/Units Serum Glucose 191 H 74-106 mg/dL Assessment/Plan Impression: Acute on chronic hypoxic respiratory failure Acute on chronic hypercarbic respiratory failure Tracheobronchomalacia NSTEMI Pneumonia Gram-positive/Gram-negative pneumonia COPD Obstructive sleep apnea Morbid obesity, BMI 63.4 Paroxysmal atrial fibrillation Events: Currently on BiPAP - IPAP 18, EPAP 10, RR 12, FiO2 70% Taper FiO2 as tolerated Monitor respiratory status closely. Patient is awake, alert Off pressors, hemodynamically stable. CXR reviewed, remarkable for mild congestion and cardiomegaly. AFib - On Amiodarone 0.5 mg drip Cardiology recommendations appreciated IV Solu-Medrol Continue bronchodilators Continue antibiotics Tube feeds for nutritional support Diurese to euvolemia w/ Bumex Monitor renal function due to acute kidney injury. BUN/Creatinine trending up Monitor electrolytes. Supplement as necessary. Labs and imaging reviewed. Rest of plan as noted below. Plan: s/p extubation on 02/28/25. Continue BiPAP Titrate to keep O2 sats above 92%. Off sedation Pressors if necessary for hemodynamic support. Titrate to keep MAP above 65 mmHg/SBP above 90 mmHg. Bronchodilators IV steroids Continue antibiotics. F/u cultures. Amio drip Cardio recs appreciated Monitor renal function due to Acute kidney injury. Monitor electrolytes. Supplement as necessary. Monitor ins/outs Nutritional support. Accu-Cheks, ISS. DVT prophylaxis- on Eliquis. Condition: Critical Prognosis: Poor given multiple comorbidities. Rest of plan per hospitalist and other consultants. A total of 35 minutes of critical care time was spent reviewing the patient record, examining the patient, making a diagnostic and therapeutic plan, discussing this plan with the medical personnel, following up on diagnostic studies and following the patient for clinical stability excluding any and all procedures. At least 50% of this time was spent in direct, vscf-fr-roer contact. Thank you Dr. Roa for allowing me to participate in this patient's care. Further recommendations will depend on patient's clinical course. Please do not hesitate to contact me if you have any questions or concerns. This medical document was created using an electronic medical record system with [employer] dictation system. Although this document has been carefully reviewed, there may still be some phonetic and typographical errors. These areas are purely typographical due to imperfections of the software programs, and do not reflect any compromise in the patient's medical care. Dietary Evaluation Review Comments: 1. Disagree with current TF orders, change to Vital HP @ 40 ml/hr continuously 2. Provide free water flushes of 30 ml Q8 hrs (90 ml total); adjust PRN 3. Monitor BMP/lytes and replete to WNL 4. When appropriate for oral diet, recommend Cardiac diet as tolerated TF Provision: TF at goal to provide 960 ml total volume, 960 kcal (+958 kcal via propofol = 1918 kcal), 84 gm pro, 0 gm fiber, 107 gm CHO, 801 ml H20 (meets 100% est. kcal needs, 100% est. pro needs) Expected Outcomes/Goals: Improved nutritional status, hemodynamic stability. Plan discussed with: Patient, Other (BETSEY Calderón) RADHA BRANDT MD Mar 02, 2025 20:16
[2025-03-02] MEDS ORDERED: FUROSEMIDE 40 MG/4 ML VIAL IV SCH (22:00)
[2025-03-03] VITALS (107 sets, daily range): BP systolic 78–138; BP diastolic 42–92; PULSE 77–129; RESP 18–42; TEMP 97.9–98.2; O2SAT 76–100
[2025-03-03 04:28] LABS: Basophils # (auto) 0 10 ^3/uL (0-0.2); Eosinophils # (auto) 0 10 ^3/uL (0-0.8); Monocytes # (auto) 0.3 10 ^3/uL (0-1.3); Nucleated Red Blood Cells % 0.2 %
[2025-03-03 04:29] LABS: Basophils % (auto) 0.1 % (0.0-2.0); Hematocrit 24.1 % (36.0-46.0); Hemoglobin 7.7 g/dL (12.2-16.2); Lymphocytes # (auto) 0.2 10 ^3/uL (0.4-5.4); Lymphocytes % (auto) 3.6 % (10.0-50.0); Mean Corpuscular Hemoglobin 30.1 pg (28.0-32.0); Mean Corpuscular Hgb Conc. 31.8 g/dL (32.0-36.0); Mean Corpuscular Volume 94.5 fL (80.0-100.0); Monocytes % (auto) 6.9 % (0.0-12.0); Neutrophils % (auto) 89.4 % (37.0-80.0); Platelet Count (auto) 119 10^3/uL (140-450); Red Blood Cells 2.55 10^6/uL (4.0-5.20); Red Cell Distribution Width 20.8 % (11.8-14.3); White Blood Cell 4.4 10^3/uL (4.4-10.8)
[2025-03-03 04:38] LABS: Anion Gap 12 (5-15)
[2025-03-03 04:42] LABS: Anisocytosis Slight; Hypochromia Slight; Platelet Estimate Decreased
[2025-03-03 04:49] LABS: Alanine Aminotransferase 44 U/L (7-40); Albumin 3.4 g/dL (3.2-4.8); Alkaline Phosphatase 126 U/L (46-116); Aspartate Aminotransferase 33 U/L (13-40); Bilirubin, Total 0.6 mg/dL (0.2-1.0); Calcium 9.5 mg/dL (8.7-10.4); Carbon Dioxide 32 mmol/L (20-31); Chloride 93 mmol/L (98-107); Glucose 210 mg/dL (74-106); Magnesium 2.4 mg/dL (1.6-2.6); Phosphorus 5.6 mg/dL (2.4-5.1); Potassium 3.7 mmol/L (3.5-5.1); Sodium 137 mmol/L (136-145); Total Protein 5.7 g/dL (5.7-8.2)
[2025-03-03 04:50] LABS: Blood Urea Nitrogen 85 mg/dL (9-23)
--- NOTE | 2025-03-03 08:24 | DVH ---
History: serrano placement in bladder Comparison: None Technique: Grayscale and color Doppler ultrasound of the pelvis was obtained Findings: Nonvisualization of the bladder. No free pelvic fluid seen in the provided images. IMPRESSION: 1. Non visualization of the bladder secondary to habitus / possible bladder decompression. CT pelvis can be obtained to further characterize.
--- NOTE | 2025-03-03 08:55 | DVH ---
CHEST RADIOGRAPH Indication: pulm congestion Technique: Single frontal view of the chest was obtained Comparison: XY CHEST PORTABLE on DOS: 03/02/25, XY CHEST PORTABLE on DOS: 03/01/25, XY CHEST PORTABLE on DOS: 02/28/25, XY CHEST PORTABLE on DOS: 02/27/25, XY CHEST XRAY 1 VIEW on DOS: 04/05/24 FINDINGS: There is a nasogastric tube however the tip is not adequately visualized. Left IJ catheter tip projecting over the confluence of the left brachiocephalic vein and SVC. The cardiac silhouette is enlarged. The lungs demonstrate patchy airspace opacities. The pulmonary va sculature is prominent. Moderate left and small to moderate right pleural effusions. There is no pneu mothorax. IMPRESSION: 1. As above. Recommend dedicated abdominal radiograph to assess the nasogastric tube positioning. T he tip is not adequately visualized on this examination
[2025-03-03] MEDS: HEPARIN 1,000 UNITS/ml 1ML VIAL IV ONE (10:30)
--- NOTE | 2025-03-03 10:31 | DVHPN2 ---
Assessment/Plan Assessment/Plan ICU notes 69 F with afib on eliquis, HFpEF, pHTN, RV failure, COPD group E on home O2, IDDM admitted for SOB, intubated 02/20/2025, extubated 02/28. on bipap since, diuresed with lasix and bumex, seen by nephro, for HD. Seen by me today during rounds, still on bipap, discussed with pulm regarding reintubation, family and patient agrees, also discussed trach if reintubation with family, will reassess. slighly improved on bumex drip however output was not addequate. discussed with renal for HD, will place HD cath Physical exam morbidly obese alert on bipap exam limited by habitus LE edema Labs EKG imaging reviewed Assessment and plan metabolic encephalopathy septic shock acute diastolic heart failure HFpEF RV failure pHTN HERVE/OHS acute on chronic hypoxic hypercarbic RF PNA gp vs gn AN ATN Type 2 NM anemia thrombocytopenia morbid obesity vaginal bleeding c/w sup o2 maintain spo2 >90% cardio consult appreciated c/w amio drip, dig, metop hold lovenox thrombocytopenia c/w steroid breathing tx c/w abx cefepime and doxy BIPAP at night bumex drip place HD cath likely starting HD urgently start clinimix lines serrano TLC L IJ placing HDcath full code condition critical prognosis poor diet NPO on bipap dvt ppx on hold gi ppx protonix critical care time 120 minutes Plan discussed with: Patient My Orders Orders - LIANNA ARTEAGA MD Procedure Category Date Status Time Us Guided Vascular US 03/03/25 Logged Access 10:24 Heparin Sodium PHA 03/03/25 Logged (Porcine) 10:30 Date of Service: Mar 03, 2025 Billing Provider: LIANNA ARTEAGA MD Common Visit Codes: [id number] CARE 30-74 MIN, [id number] CARE-EACH +30MIN LIANNA ARTEAGA MD Mar 03, 2025 10:31
[2025-03-03] MEDS: SODIUM CHL 0.9% 1000 ML BAG XX ONE (10:45)
--- NOTE | 2025-03-03 11:31 | DVHPN2 ---
Consult Progress Note Subjective Patient reports: Feels worse Objective vital signs Vital Sign Date Time Temp Pulse Resp B/P (MAP) Pulse Ox O2 Delivery O2 Flow Rate FiO2 03/03/25 10:00 100 117/70 95 Facial BiPAP Mask 70 03/03/25 09:15 25 03/03/25 08:00 98.2 98.2 Total Intake and Output 03/02/25 03/02/25 03/03/25 15:00 23:00 07:00 Intake Total 257.28 ml 319.28 ml 315.94 ml Output Total 120 ml 90 ml Balance 257.28 ml 199.28 ml 225.94 ml medications Current Medications Medications Dose Ordered Sig/Adolfo Route Start Time Stop Time Status Last Admin Dose Admin Nitroglycerin 0.4 mg Q5MINP PRN SL 02/19/25 15:15 Ipratropium [place] 0.5 mg Q6HR NEB 02/19/25 18:00 03/03/25 06:11 0.5 MG Doxycycline Hyclate 100 ml @ 50 mls/hr Q12H IV 02/20/25 10:00 03/03/25 09:03 50 MLS/HR Diagnostic Test (Pha) 1 strip ACHS 02/22/25 07:19 03/03/25 06:15 1 STRIP Insulin Human Regular ACHS SC 02/22/25 07:19 03/03/25 06:16 4 UNITS Dextrose 50 ml UD PRN IV 02/22/25 07:15 Pantoprazole Sodium 40 mg DAILY IV 02/26/25 10:00 03/03/25 09:08 40 MG Atorvastatin Calcium 40 mg HS PO 02/25/25 22:00 03/02/25 22:19 40 MG Enteral Nutritional Formula 1,000 ml 30ML/HR GT 02/25/25 14:30 02/26/25 15:51 1,000 ML Acetaminophen/ Hydrocodone Bitart 1 tab Q4HP PRN PO 02/26/25 09:45 03/02/25 23:52 1 TAB Digoxin 0.125 mg EOD PO 02/28/25 10:00 03/02/25 10:52 0.125 MG Lactulose 30 ml TID PO 02/27/25 14:00 03/03/25 06:01 30 ML Methylprednisolone Sodium Succinate 60 mg Q8HR IV 02/27/25 14:00 03/03/25 06:00 60 MG Metoclopramide HCl 5 mg Q6HR IV 02/27/25 18:00 03/03/25 06:00 5 MG Metoprolol Tartrate 25 mg BID PO 03/02/25 10:00 03/03/25 09:03 25 MG Bumetanide 25 mg/ Miscellaneous 100 ml @ 4 mls/hr Q24H IV 03/02/25 09:00 03/03/25 02:11 4 MLS/HR Levalbuterol HCl 1.25 mg Q6HR NEB 03/02/25 18:00 03/03/25 06:11 1.25 MG Examination: LUNGS:Abnormal (Bipap FiO2 70%), CVS:Abnormal (Telemetry consistent with atirla fibrillation with RVR at 105bpm. ), NEURO:Abnormal (lethargic) laboratory and microbiology Laboratory Tests 03/03/25 04:19 Test 03/03/25 04:19 Range/Units Serum Glucose 210 H 74-106 mg/dL Problem List/Assessment/Plan Problem List/Assessment/Plan Problem List/Assessment/Plan Acute on chronic decompensated HFpEF with LVEF 50-55%, NYHA Class III Unspecified atrial fibrillation with rapid ventricular rate, on Eliquis therapy, now controlled rate Pulmonary hypertension with decreased RV function, ssxdyher-cl-mzldio degree Tricuspid regurgitation, [id number] degree Pericardial effusion, resolved Sepsis with multifocal pneumonia Acute on chronic hypoxic respiratory failure Acute kidney injury Vaginal bleed Borderline thrombocytopenia Morbid obesity Bilateral pleural effusion Plan/Recommendation (Dr. Ruiz) * Transthoracic echocardiogram revealed EF 50-55% * Moderately decreased RV function. PAH at 60 mmHg. Moderate to severe TR. Moderate pericardial effusion * Antiarrhythmic therapy, continue amiodarone drip per pharmacy protocol * Rate control, digoxin therapy EOD. * Metoprolol increased to 50 mg p.o. twice daily. * Eliquis held given reported vaginal bleed/thrombocytopenia * [id number] Score: 5 points. HAS-BLED Score: 3 points * At high risk for CVA being off DOAC therapy * Replete electrolytes as necessary, K>4 and Mg>2 * Nephrology/Pulmonology/ELECTRICAL PANEL BUILDER recommendations * DVT prophylaxis: SCDs Patient on Bumex drip, kidneys continue to worsen creatinine 3.86 BUN 85 today. Patient does not seem fluid overloaded though CXR showing patchy airspace opacities with pulmonary vascular congestion, moderate left and small to moderate right pleural effusions. Nephrology on board, follow up recs. Metoprolol continued at 50 mg p.o. twice daily, continue trending and titrate as tolerated. Patient continues to be on BiPAP at 70%. Follow up pulmonology recs, possible thoracentesis. Thank you for allowing us to participate in this patient's care. Please call if you have any questions or concerns. Plan discussed with: Patient, Other (Bedside RN) Dietary Evaluation Review Comments: 1. Disagree with current TF orders, change to Vital HP @ 40 ml/hr continuously 2. Provide free water flushes of 30 ml Q8 hrs (90 ml total); adjust PRN 3. Monitor BMP/lytes and replete to WNL 4. When appropriate for oral diet, recommend Cardiac diet as tolerated TF Provision: TF at goal to provide 960 ml total volume, 960 kcal (+958 kcal via propofol = 1918 kcal), 84 gm pro, 0 gm fiber, 107 gm CHO, 801 ml H20 (meets 100% est. kcal needs, 100% est. pro needs) Expected Outcomes/Goals: Improved nutritional status, hemodynamic stability. Date of Service: Mar 03, 2025 Billing Provider: MAC ARCE Common Visit Codes: [id number] INP/OBS CARE(HIGH), 26048-[id number] CARE 30-74 MIN MAC ARCE Mar 03, 2025 11:31
[2025-03-03] MEDS: MORPHINE SULFATE INJ 2 MG/ml SYRG IV ONE (11:56)
--- NOTE | 2025-03-03 12:16 | DVHNC2 ---
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 Indication: Other (dialysis) Room prepared for procedure: Yes [employer] performed hand hygien: Yes Maximal sterile barrier precau: Mask/Eye shield, Sterile gown, Cap, Sterlie gloves, Large sterlie drape Skin Preparation: Chlorhexidine gluconate Skin preparation completely dr: Yes Insertion site: Right, Internal jugular Central line catheter type: Dialysis non-tunneled Number of lumens: 2 Post Assessment: Chest X-Ray, Proper placement, No Pneumothorax Informed consent obtained: Yes Risks/benefits/alt described: Yes Date of Service: Mar 03, 2025 Billing Provider: LIANNA ARTEAGA MD Common Visit Codes: PROCEDURE ONLY Procedure Codes: [id number] NON-TUNNEL CV CATH LIANNA ARTEAGA MD Mar 03, 2025 12:16
--- NOTE | 2025-03-03 14:38 | DVH ---
CHEST RADIOGRAPH Indication: hd cath placement verification Technique: Single frontal view of the chest was obtained Comparison: XY CHEST PORTABLE on DOS: 03/03/25, XY CHEST PORTABLE on DOS: 03/02/25, XY CHEST PORTABLE on DOS: 03/01/25 FINDINGS: Lines and Tubes: Bilateral internal jugular catheter is in place in the superior vena cava. Enteric t ube below the diaphragm. Lungs: No focal consolidation. Pleura: No effusion. No pneumothorax. Cardiomediastinal contours: Marked cardiomegaly concerning for cardiomyopathy or pericardial effusion Bones: No acute osseous abnormality. IMPRESSION: 1. Cardiomegaly, correlate for cardiomyopathy or pericardial effusion. 2. Bilateral internal jugular catheter is in place in superior vena cava. 3. Enteric tube below the diaphragm in the stomach 4.
--- NOTE | 2025-03-03 15:27 | DVHPN2 ---
Progress Note Date Seen: Mar 03, 2025 Medical Necessity Reason Pt with a Central, PICC or Fol: Yes The following are medically ne: Serrano Catheter Reason for serrano catheter: Strict I&O Subjective Patient reports: Other (Patient remains on BiPAP) Review of Systems: Deferred Objective vital signs Vital Sign Date Time Temp Pulse Resp B/P (MAP) Pulse Ox O2 Delivery O2 Flow Rate FiO2 03/03/25 14:16 105 91/55 91 Facial BiPAP Mask 70 03/03/25 14:00 24 03/03/25 12:00 98.2 98.2 Total Intake and Output 03/02/25 03/02/25 03/03/25 15:00 23:00 07:00 Intake Total 257.28 ml 319.28 ml 315.94 ml Output Total 120 ml 90 ml Balance 257.28 ml 199.28 ml 225.94 ml medications Current Medications Medications Dose Ordered Sig/Adolfo Route Start Time Stop Time Status Last Admin Dose Admin Nitroglycerin 0.4 mg Q5MINP PRN SL 02/19/25 15:15 Ipratropium [place] 0.5 mg Q6HR NEB 02/19/25 18:00 03/03/25 11:33 0.5 MG Diagnostic Test (Pha) 1 strip ACHS 02/22/25 07:19 03/03/25 11:30 1 STRIP Insulin Human Regular ACHS SC 02/22/25 07:19 03/03/25 13:25 4 UNITS Dextrose 50 ml UD PRN IV 02/22/25 07:15 Pantoprazole Sodium 40 mg DAILY IV 02/26/25 10:00 03/03/25 09:08 40 MG Atorvastatin Calcium 40 mg HS PO 02/25/25 22:00 03/02/25 22:19 40 MG Enteral Nutritional Formula 1,000 ml 30ML/HR GT 02/25/25 14:30 02/26/25 15:51 1,000 ML Acetaminophen/ Hydrocodone Bitart 1 tab Q4HP PRN PO 02/26/25 09:45 03/02/25 23:52 1 TAB Digoxin 0.125 mg EOD PO 02/28/25 10:00 03/02/25 10:52 0.125 MG Lactulose 30 ml TID PO 02/27/25 14:00 03/03/25 13:40 30 ML Methylprednisolone Sodium Succinate 60 mg Q8HR IV 02/27/25 14:00 03/03/25 13:40 60 MG Metoclopramide HCl 5 mg Q6HR IV 02/27/25 18:00 03/03/25 13:40 5 MG Metoprolol Tartrate 25 mg BID PO 03/02/25 10:00 03/03/25 09:03 25 MG Levalbuterol HCl 1.25 mg Q6HR NEB 03/02/25 18:00 03/03/25 11:33 1.25 MG Examination: GENERAL:Abnormal, LUNGS:Abnormal, ABDOMEN:Abnormal, MSK:Abnormal, SKIN:Abnormal, NEURO:Normal laboratory and microbiology Laboratory Tests 03/03/25 04:19 Test 03/03/25 04:19 Range/Units Serum Glucose 210 H 74-106 mg/dL Microbiology Date/Time Source Procedure Growth Status 02/21/25 11:22 Blood Blood Culture - Final NO GROWTH AFTER 5 DAYS OF INCUBATION. Complete 02/21/25 09:30 Nose MRSA Screen - Final Complete 02/21/25 09:30 Voided Urine Urine Culture - Final Complete 02/20/25 18:28 Bronchial Washings Gram Stain - Final Complete 02/20/25 18:28 Bronchial Washings Respiratory Culture - Final Complete Problem List/Assessment/Plan Problem List/Assessment/Plan Acute kidney injury likely ATN Acute hypoxic respiratory failure status post intubation and extubation currently on BiPAP Atrial fibrillation with RVR Anemia Vaginal bleeding Morbid obesity BMI greater than 50 Congestive heart failure Pulmonary hypertension Severe tricuspid regurg recs Patient failed diuretic challenge remains oliguric with Bumex drip Recommend renal replacement therapy Informed benefits and risks of dialysis to patient's and patient's daughter they both verbalized understanding and consented for dialysis Temporary catheter to be placed by hospitalist Discussed with hospitalist bedside Tentatively HD today We will follow closely Plan discussed with: Spouse My Orders My Orders Orders - NAEEM PHELPS MD Procedure Category Date Status Time Vitamin D, 25-Hydroxy LAB 03/03/25 In Process 04:00 Dialysis Nursing THEO 03/03/25 In Process Message 10:40 Document Fluid Input THEO 03/03/25 In Process And Outpu 10:40 Epoetin Javan-Epbx PHA 03/03/25 In Process (Retacrit) 21:00 Acute Hepatitis Panel LAB 03/03/25 In Process 12:26 Hemodialysis Orders ORDERS 03/03/25 Transmitted 12:53 Dietary Evaluation Review Comments: 1. Disagree with current TF orders, change to Vital HP @ 40 ml/hr continuously 2. Provide free water flushes of 30 ml Q8 hrs (90 ml total); adjust PRN 3. Monitor BMP/lytes and replete to WNL 4. When appropriate for oral diet, recommend Cardiac diet as tolerated TF Provision: TF at goal to provide 960 ml total volume, 960 kcal (+958 kcal via propofol = 1918 kcal), 84 gm pro, 0 gm fiber, 107 gm CHO, 801 ml H20 (meets 100% est. kcal needs, 100% est. pro needs) Expected Outcomes/Goals: Improved nutritional status, hemodynamic stability. Critical Care Time (mins): 45 NAEEM PHELPS MD Mar 03, 2025 15:27
[2025-03-03] MEDS: MIDAZOLAM DRIP 50 mg/50mL 50 ML IV ONE (16:18)
[2025-03-03] MEDS: fentaNYL Drip 2500mCg/250mlNS 250 ML IV ONE (16:18)
[2025-03-03] MEDS: ETOMIDATE (2MG/ML) 20ML VIAL IV ONE ×2 (16:18→16:36)
[2025-03-03] MEDS: NOREPINEPHRINE 8 MG/250ML KIT 250 ML IV ONE (16:18)
[2025-03-03] MEDS: SUCCINYLCHOLINE CHLORIDE 20 MG/ML 10ML VIAL IV ONE ×2 (16:18→16:45)
[2025-03-03] MEDS: NOREPINEPHRINE 8 MG/250ML KIT 250 ML IV SCH (16:37)
--- NOTE | 2025-03-03 16:41 | DVHNC2 ---
Intubation Indication: Respiratory Insufficiency Prep: Preoxygenation Pretreated with: Sedation Medicated with: Succinylcholine Intubation Approach: Orotracheal Intubation size: cm (7.5) Informed consent obtained: Yes Risks/benefits/alt described: Yes Date of Service: Mar 03, 2025 Billing Provider: LIANNA ARTEAGA MD Common Visit Codes: PROCEDURE ONLY Procedure Codes: [id number] LIANNA ARTEAGA MD Mar 03, 2025 16:41
[2025-03-03] MEDS: fentaNYL Drip 2500mCg/250mlNS 250 ML IV SCH (16:55)
[2025-03-03] MEDS: MIDAZOLAM DRIP 50 mg/50mL 50 ML IV SCH (16:57)
--- NOTE | 2025-03-03 17:08 | DVH ---
CHEST RADIOGRAPH Indication: INTUBATION Technique: Single frontal view of the chest was obtained Comparison: XY CHEST XRAY 1 VIEW on DOS: 03/03/25, XY CHEST PORTABLE on DOS: 03/03/25, XY CHEST PORTABLE on DOS: 03/02/25 FINDINGS: Lines and Tubes: Endotracheal tube 3.3 cm above the sejal. Right internal jugular catheter in place in superior above the right atrium. Appears to be a left internal jugular catheter in place in superi or vena cava. Enteric tube below the left diaphragm in the stomach. Lungs: No focal consolidation. Pleura: No effusion. No pneumothorax. Cardiomediastinal contours: Unremarkable Bones: No acute osseous abnormality. IMPRESSION: 1. Endotracheal tube 3.3 cm above the sejal. 2. Internal jugular catheter is in place unchanged 3. Cardiac size and pulmonary airspace disease unimproved. 4. Enteric tube in the stomach.
[2025-03-03 18:06] LABS: Base Excess -0.7 mmol/L (-2.0-3.0)
--- NOTE | 2025-03-03 18:51 | DVHPN2 ---
Progress Note - Dictate Date Seen: Mar 03, 2025 Medical Necessity Reason Pt with a Central, PICC or Fol: Yes The following are medically ne: Serrano Catheter Reason for serrano catheter: Strict I&O Subjective Patient seen and examined at bedside. Remains on BiPAP Overnight events reviewed. vital signs Vital Sign Date Time Temp Pulse Resp B/P (MAP) Pulse Ox O2 Delivery O2 Flow Rate FiO2 03/03/25 18:21 103 27 130/75 (93) 100 90 03/03/25 18:00 Mechanical Ventilator+ 03/03/25 12:00 98.2 98.2 Total Intake and Output 03/02/25 03/02/25 03/03/25 15:00 23:00 07:00 Intake Total 257.28 ml 319.28 ml 315.94 ml Output Total 120 ml 90 ml Balance 257.28 ml 199.28 ml 225.94 ml medications Current Medications Medications Dose Ordered Sig/Adolfo Route Start Time Stop Time Status Last Admin Dose Admin Nitroglycerin 0.4 mg Q5MINP PRN SL 02/19/25 15:15 Ipratropium [place] 0.5 mg Q6HR NEB 02/19/25 18:00 03/03/25 18:20 0.5 MG Diagnostic Test (Pha) 1 strip ACHS 02/22/25 07:19 03/03/25 17:00 1 STRIP Insulin Human Regular ACHS SC 02/22/25 07:19 03/03/25 18:07 4 UNITS Dextrose 50 ml UD PRN IV 02/22/25 07:15 Pantoprazole Sodium 40 mg DAILY IV 02/26/25 10:00 03/03/25 09:08 40 MG Atorvastatin Calcium 40 mg HS PO 02/25/25 22:00 03/02/25 22:19 40 MG Enteral Nutritional Formula 1,000 ml 30ML/HR GT 02/25/25 14:30 02/26/25 15:51 1,000 ML Acetaminophen/ Hydrocodone Bitart 1 tab Q4HP PRN PO 02/26/25 09:45 03/02/25 23:52 1 TAB Digoxin 0.125 mg EOD PO 02/28/25 10:00 03/02/25 10:52 0.125 MG Lactulose 30 ml TID PO 02/27/25 14:00 03/03/25 13:40 30 ML Methylprednisolone Sodium Succinate 60 mg Q8HR IV 02/27/25 14:00 03/03/25 13:40 60 MG Metoclopramide HCl 5 mg Q6HR IV 02/27/25 18:00 03/03/25 17:38 5 MG Metoprolol Tartrate 25 mg BID PO 03/02/25 10:00 03/03/25 09:03 25 MG Levalbuterol HCl 1.25 mg Q6HR NEB 03/02/25 18:00 03/03/25 18:20 1.25 MG Norepinephrine Bitartrate 250 ml @ 3.75 mls/hr Q24H IV 03/03/25 16:15 03/03/25 16:37 3.75 MLS/HR Midazolam HCl 50 ml @ 1 mls/hr Q24H IV 03/03/25 16:15 03/03/25 16:57 1 MLS/HR Fentanyl Citrate 250 ml @ 2.5 mls/hr Q24H IV 03/03/25 16:15 03/03/25 16:55 2.5 MLS/HR objective Gen.: Patient lying in bed in no apparent distress. On BiPAP Head: Normocephalic, atraumatic. Eyes: EOMI/PERRLA. Ears: Normal hearing. Normal anatomy. Neck/trachea: Trachea midline, supple. Nose: Normal external anatomy. Mouth: Moist mucous membranes. Chest: Decreased air entry bilaterally. No wheezing or rhonchi. Cardiovascular: Positive S1, positive S2. Regular rate and rhythm. Abdomen: Positive bowel sounds in all 4 quadrants. Soft, non-tender, non- distended. : Deferred. Rectal: Deferred. Skin: Warm, dry. Intact. Extremities: 2+ radial pulses bilaterally. No lower extremity edema. Neuro: Awake, alert, oriented x3. No gross motor or sensory deficits. Cranial nerves II through XII intact. Gait not assessed. laboratory and microbiology Laboratory Tests 03/03/25 04:19 Test 03/03/25 04:19 Range/Units Serum Glucose 210 H 74-106 mg/dL Assessment/Plan Impression: Acute on chronic hypoxic respiratory failure Acute on chronic hypercarbic respiratory failure Tracheobronchomalacia NSTEMI Pneumonia Gram-positive/Gram-negative pneumonia COPD Obstructive sleep apnea Morbid obesity, BMI 63.4 Paroxysmal atrial fibrillation Events: Remains on BiPAP - IPAP 18, EPAP 10, RR 12, FiO2 70% Taper FiO2 as tolerated ABG done this morning on 50% FiO2 demonstrated hypoxia. Patient resumed to 70% Fio2 Monitor respiratory status closely. Patient is awake, alert Off pressors, hemodynamically stable. CXR reviewed, remarkable for cardiomegaly and pulmonary airspace disease unimproved. IV Solu-Medrol Continue bronchodilators Continue antibiotics Tube feeds for nutritional support Diurese to euvolemia w/ Bumex - CVP 5 mmHg Urine output 90 mL Monitor renal function due to acute kidney injury - increased BUN/Creatinine. BUN/Creatinine trending up Monitor electrolytes. Supplement as necessary. Nephrology following. Cardiology recommendations appreciated Labs and imaging reviewed. Rest of plan as noted below. Plan: s/p extubation on 02/28/25. Continue BiPAP Titrate to keep O2 sats above 92%. Off sedation Pressors if necessary for hemodynamic support. Titrate to keep MAP above 65 mmHg/SBP above 90 mmHg. Bronchodilators IV steroids Continue antibiotics. F/u cultures. Amio drip Cardio recs appreciated Monitor renal function due to Acute kidney injury. Monitor electrolytes. Supplement as necessary. Monitor ins/outs Nutritional support. Accu-Cheks, ISS. DVT prophylaxis- on Eliquis. Condition: Critical Prognosis: Poor given multiple comorbidities. Rest of plan per hospitalist and other consultants. A total of 35 minutes of critical care time was spent reviewing the patient record, examining the patient, making a diagnostic and therapeutic plan, discussing this plan with the medical personnel, following up on diagnostic studies and following the patient for clinical stability excluding any and all procedures. At least 50% of this time was spent in direct, [id number] contact. Thank you Dr. Roa for allowing me to participate in this patient's care. Further recommendations will depend on patient's clinical course. Please do not hesitate to contact me if you have any questions or concerns. This medical document was created using an electronic medical record system with [employer] system. Although this document has been carefully reviewed, there may still be some phonetic and typographical errors. These areas are purely typographical due to imperfections of the software programs, and do not reflect any compromise in the patient's medical care. Dietary Evaluation Review Comments: 1. Disagree with current TF orders, change to Vital HP @ 40 ml/hr continuously 2. Provide free water flushes of 30 ml Q8 hrs (90 ml total); adjust PRN 3. Monitor BMP/lytes and replete to WNL 4. When appropriate for oral diet, recommend Cardiac diet as tolerated TF Provision: TF at goal to provide 960 ml total volume, 960 kcal (+958 kcal via propofol = 1918 kcal), 84 gm pro, 0 gm fiber, 107 gm CHO, 801 ml H20 (meets 100% est. kcal needs, 100% est. pro needs) Expected Outcomes/Goals: Improved nutritional status, hemodynamic stability. Plan discussed with: Patient, Other (BETSEY Calderón) RADHA BRANDT MD Mar 03, 2025 18:51
[2025-03-03 21:26] LABS: Base Excess 1.4 mmol/L (-2.0-3.0)
--- NOTE | 2025-03-03 21:51 | DVHNC2 ---
Procedure - Bronchoscopy procedure note: Indications: Atelectasis, Possible mucous plugging. Increased ET tube secretions. Physician: Dr Andrew Braxton RN Elza Time out: 21:30 Medicines: See [facility] [employer] PROGRAM REPRESENTATIVE notes. Complications: None Procedure: Patient medications and allergies reviewed. The risks and benefits of the procedure and the sedation options and risk were discussed with the patient's healthcare proxy. All questions were answered and informed consent was obt ained. Patient identification and proposed procedure were verified prior to the procedure by the physician, and a nurse, and the respiratory therapist in ICU room. The heart rate, respiratory rate, oxygen saturations, blood pressure, adequacy of pulmonary ventilation, and response to care were monitored throughout the procedure. The physical status of the patient was reassessed after the procedure. After obtaining informed consent, the bronchoscope was introduced through the endotracheal tube and advanced into the trachea bronchial tree of both lungs. The procedure was accomplished without difficulty. The patient tolerated the procedure well. Findings: The trachea is in normal caliber. The sejal is sharp. The tracheobronchial tree of the right lung was examined to at least the first subsegmental level. The bronchial mucosa and anatomy in the right lung are normal. There are no endobronchial lesions. There was copious greenish secretions from right main stem bronchus onward throughout R1-R3 and R6-R10. The left upper lobe, lingula, and left lower lobe were examined to at least the first subsegmental level. Bronchial mucosa and anatomy in the left upper lobe and lingula are normal. There were no endobronchial lesions. There was copious greenish/brownish secretions from left main stem bronchus onward throughout L1- L3. Mucous plugging removed from L1-L3. There was no active bleeding at the completion of the procedure. Estimated blood loss: Less than 5 mL. Impression: Left and right lower lobe atelectasis due to mucous plugging Mucous plugging from L1-L3 and R1-R3 and R6-R10 Recommendation: Pulmonary toileting Procedure codes: 15872, bronchoscopy, rigid and flexible, including fluoroscopic guidance, one performed; with bronchial endobronchial removal of mucous plugging, single or multiple sites RAHDA BRANDT MD Mar 03, 2025 21:51
[2025-03-03] MEDS: CEFEPIME 1GM/ 50ML 50 ML IV SCH (22:18)
[2025-03-03] MEDS: EPOETIN ALFA-EPBX 4,000 UNIT/ML VIAL SC ONE (22:21)
[2025-03-04] VITALS (107 sets, daily range): BP systolic 93–159; BP diastolic 31–93; PULSE 95–132; RESP 21–53; TEMP 97.9–99.1; O2SAT 94–99
[2025-03-04 04:03] LABS: Albumin 3.7 g/dL (3.2-4.8); Anion Gap 13 (5-15); Aspartate Aminotransferase 28 U/L (13-40); BUN/Creatinine Ratio 18.5 (10.0-20.0); Calcium 9.7 mg/dL (8.7-10.4); Carbon Dioxide 29 mmol/L (20-31); Potassium 3.7 mmol/L (3.5-5.1); Sodium 137 mmol/L (136-145); Total Protein 6.1 g/dL (5.7-8.2)
[2025-03-04 04:04] LABS: Bilirubin, Total 0.6 mg/dL (0.2-1.0)
[2025-03-04 04:08] LABS: Basophils # (auto) 0 10 ^3/uL (0-0.2); Eosinophils # (auto) 0 10 ^3/uL (0-0.8); Hemoglobin 8.4 g/dL (12.2-16.2); Lymphocytes # (auto) 0.2 10 ^3/uL (0.4-5.4); Monocytes # (auto) 0.7 10 ^3/uL (0-1.3); Neutrophils # (auto) 8.9 10 ^3/uL (1.6-8.6); Nucleated Red Blood Cells % 0.1 %; Platelet Count (auto) 138 10^3/uL (140-450); White Blood Cell 9.8 10^3/uL (4.4-10.8)
[2025-03-04 04:10] LABS: Basophils % (auto) 0.2 % (0.0-2.0); Hematocrit 25.3 % (36.0-46.0); Mean Corpuscular Hemoglobin 31.3 pg (28.0-32.0); Mean Corpuscular Volume 94.8 fL (80.0-100.0); Monocytes % (auto) 6.8 % (0.0-12.0); Red Blood Cells 2.67 10^6/uL (4.0-5.20)
[2025-03-04 04:11] LABS: Red Cell Distribution Width 20.8 % (11.8-14.3)
[2025-03-04 04:19] LABS: Alanine Aminotransferase 53 U/L (7-40); Alkaline Phosphatase 137 U/L (46-116); Blood Urea Nitrogen 66 mg/dL (9-23); Chloride 95 mmol/L (98-107); Glucose 227 mg/dL (74-106)
--- NOTE | 2025-03-04 05:07 | DVH ---
EXAM: XR Chest, 1 View CLINICAL INDICATION: Intubated TECHNIQUE: Frontal view of the chest. COMPARISON: XY CHEST XRAY 1 VIEW on DOS: 03/03/25, XY CHEST XRAY 1 VIEW on DOS: 04/05/24 FINDINGS: LUNGS AND PLEURAL SPACES: See below. HEART: Cardiomegaly with mild congestion. MEDIASTINUM: Unremarkable. Normal mediastinal contour. BONES/JOINTS: Unremarkable. No acute fracture. TUBES, LINES AND DEVICES: The endotracheal tube (ETT) is in satisfactory position. Right internal jugular central venous catheter tip in the superior vena cava. Enteric tube tip cannot be seen but i s below the diaphragm. OTHER FINDINGS: . .. IMPRESSION: Cardiomegaly with mild congestion.
[2025-03-04 05:52] LABS: Anisocytosis Slight; Platelet Estimate Decreased; Stomatocytes Moderate
[2025-03-04 07:45] LABS: Base Excess 0.6 mmol/L (-2.0-3.0)
[2025-03-04 10:37] LABS: Hepatitis A Ab IgM Negative; Hepatitis B Core IgM Negative (Negative); Hepatitis B Surface Antigen Negative (Negative); Hepatitis C Antibody Negative (Negative)
[2025-03-04 10:42] LABS: Urine Bacteria FEW /hpf (None Seen); Urine Blood 3+ /uL (Negative); Urine Color Yellow (Yellow); Urine Protein, UAD 1+ (Negative); Urine Specific Gravity 1.017 (1.001-1.035); Urine Squamous Epithelial Cell FEW /hpf (<5); Urine Urobilinogen Normal (Negative); Urine WBC 12 /HPF (0-5); Urine pH 5.5 (5.0-9.0)
[2025-03-04 10:44] LABS: Urine Clarity Cloudy (Clear)
--- NOTE | 2025-03-04 11:15 | DVHPNRES ---
Progress Note Date Seen: Mar 04, 2025 Resident Creating Document: NENA ZHOU RESIDENT Medical Necessity Reason Pt with a Central, PICC or Fol: Yes The following are medically ne: Serrano Catheter Reason for serrano catheter: Strict I&O Subjective Review of Systems Patient was seen and examined at bedside. She remains on mechanical ventilator, FiO2 was brought down to 40% from 55%. Peep was brought down to 8. Respiratory rate still at 26. Patient still on Levophed at four, she is on fentanyl and Versed. We will continue titrating down peep and FiO2 Objective vital signs Vital Sign Date Time Temp Pulse Resp B/P (MAP) Pulse Ox O2 Delivery O2 Flow Rate FiO2 03/04/25 10:53 100 26 116/63 (80) 97 50 03/04/25 10:00 99.1 210.4 03/04/25 10:00 Mechanical Ventilator+ Total Intake and Output 03/03/25 03/03/25 03/04/25 15:00 23:00 07:00 Intake Total 261.28 ml 345.10 ml 450.28 ml Output Total 75 ml 0 ml Balance 261.28 ml 270.10 ml 450.28 ml medications Current Medications Medications Dose Ordered Sig/Adolfo Route Start Time Stop Time Status Last Admin Dose Admin Nitroglycerin 0.4 mg Q5MINP PRN SL 02/19/25 15:15 Ipratropium [place] 0.5 mg Q6HR NEB 02/19/25 18:00 03/04/25 06:03 0.5 MG Diagnostic Test (Pha) 1 strip ACHS 02/22/25 07:19 03/04/25 06:39 1 STRIP Insulin Human Regular ACHS SC 02/22/25 07:19 03/04/25 06:53 4 UNITS Dextrose 50 ml UD PRN IV 02/22/25 07:15 Pantoprazole Sodium 40 mg DAILY IV 02/26/25 10:00 03/04/25 09:22 40 MG Atorvastatin Calcium 40 mg HS PO 02/25/25 22:00 03/03/25 22:20 40 MG Enteral Nutritional Formula 1,000 ml 30ML/HR GT 02/25/25 14:30 02/26/25 15:51 1,000 ML Acetaminophen/ Hydrocodone Bitart 1 tab Q4HP PRN PO 02/26/25 09:45 03/02/25 23:52 1 TAB Digoxin 0.125 mg EOD PO 02/28/25 10:00 03/04/25 09:22 0.125 MG Lactulose 30 ml TID PO 02/27/25 14:00 03/04/25 06:39 30 ML Metoclopramide HCl 5 mg Q6HR IV 02/27/25 18:00 03/04/25 06:39 5 MG Metoprolol Tartrate 25 mg BID PO 03/02/25 10:00 03/03/25 22:19 25 MG Levalbuterol HCl 1.25 mg Q6HR NEB 03/02/25 18:00 03/04/25 06:03 1.25 MG Norepinephrine Bitartrate 250 ml @ 3.75 mls/hr Q24H IV 03/03/25 16:15 03/03/25 16:37 3.75 MLS/HR Midazolam HCl 50 ml @ 1 mls/hr Q24H IV 03/03/25 16:15 03/04/25 06:38 6 MLS/HR Fentanyl Citrate 250 ml @ 2.5 mls/hr Q24H IV 03/03/25 16:15 03/03/25 16:55 2.5 MLS/HR Cefepime HCl 50 ml @ 12.5 mls/hr HS IV 03/03/25 22:00 03/03/25 22:18 12.5 MLS/HR Methylprednisolone Sodium Succinate 40 mg BID IV 03/04/25 22:00 Heparin Sodium (Porcine) 5,000 units Q8HR SC 03/04/25 14:00 Examination Physical examination as below: General: Mechanically ventilated, intubated HEENT: Head is normocephalic and atraumatic. Pupils are equal, round, and reactive to light. Neck: Supple with no cervical lymphadenopathy. Heart: Regular rate without murmur, rub, or gallop. Lungs: Mild bilateral diffuse crackles and scattered wheezing Abdomen: No external sign of injury. Bowel sounds are present. Abdomen is soft, nontender. Extremities: Strong peripheral pulses. There is no clubbing, no cyanosis, and no edema. Skin: No rash. Neurologic: Sedated laboratory and microbiology Laboratory Tests 03/04/25 03:19 Test 03/04/25 03:19 Range/Units Serum Glucose 227 H 74-106 mg/dL Microbiology Date/Time Source Procedure Growth Status 03/03/25 16:40 Sputum Gram Stain Pending Resulted 03/03/25 16:40 Sputum Respiratory Culture - Preliminary Resulted 02/21/25 11:22 Blood Blood Culture - Final NO GROWTH AFTER 5 DAYS OF INCUBATION. Complete 02/21/25 09:30 Nose MRSA Screen - Final Complete 02/21/25 09:30 Voided Urine Urine Culture - Final Complete Labs and/or images reviewed: Labs reviewed by me, Image(s) reviewed by me Problem List/Assessment/Plan Problem List/Assessment/Plan Neurology #Metabolic encephalopathy due to sepsis Cardiovascular #Acute on chronic diastolic CHF with RV failure #Pulmonary hypertension, class 2 vs 3, moderate-severe #NSTEMI likely type 2 #Atrial fibrillation with rapid ventricular rate #Tricuspid regurgitation, ucvzutvo-[id number] degree #Pericardial effusion, resolved On amiodarone drip 0.5 Digoxin po .125mg during dialysis On hemodialysis Cardiology following Lipitor Urine output 40cc Pulmonology #Acute on chronic hypoxic and hypercarbic respiratory failure, on mechanical ventilator #Obstructive sleep apnea #Obesity hypoventilation syndrome #Respiratory acidosis, compensated #Pneumonia, gram (+) vs gram (-), atypicals #COPD exacerbation #Mucous plugs s/p bronch 03/03/25 On MV: FIO2: 55-40%. PEEP: 10-8. RR: 26. TV: 400ml, will continue waning down Solumedorl 40mg IV bid DuoNebs q6hrs Cefepime IV Nephrology #AN, likely ATN Monitor, continue HD Nephrology following Endocrinology #Morbid obesity Gastroenterology On tube feeding: Glucerna Reglan IV Lactulose po #Transaminitis, likely due to sepsis Monitor, trending down Hematology and Oncology #Thrombocytopenia likely due to sepsis Improving #Anemia normocytic normochromic Monitor, currently stable Infectious Disease #Septic shock due to Pneumonia, gram (+) vs gram (-), atypicals Dermatology X Gynecology #Vaginal bleeding Consulted [facility] [employer], bleeding stopped Pelvic US: Unable to visualize uterus and both ovaries. DVT ppx Heparin PUD ppx Protonix Drips Levo Fent Versed -> Propofol Lines TLC left IJ 02/20/25 PRITI right, non-tunneled dialysis 03/03/25 ReIntubated 03/03/25 Updated family member on patient's current status. Goals of care were discussed for over 30 minutes. FULL CODE. Critical care time spent 60 mins Case was discussed with Dr. Mays Plan discussed with: Spouse, Other (RN) My Orders My Orders Orders - NENA ZHOU RESIDENT Procedure Category Date Status Time Abg W/ Co-Ox RT 03/04/25 Logged 07:45 Ventilator Orders RT 03/04/25 Transmitted 09:18 Heparin Sodium PHA 03/04/25 In Process (Porcine) 14:00 Methylprednisolone PHA 03/04/25 In Process Sod Succ (Solu Medrol 22:00 Urine Bacterial MINA 03/04/25 Logged Culture 11:03 Full Code THEO 03/04/25 In Process 11:07 Code Status CODE 03/04/25 Transmitted 11:07 Dietary Evaluation Review Comments: 1. Disagree with current TF orders, change to Vital HP @ 40 ml/hr continuously 2. Provide free water flushes of 30 ml Q8 hrs (90 ml total); adjust PRN 3. Monitor BMP/lytes and replete to WNL 4. When appropriate for oral diet, recommend Cardiac diet as tolerated TF Provision: TF at goal to provide 960 ml total volume, 960 kcal (+958 kcal via propofol = 1918 kcal), 84 gm pro, 0 gm fiber, 107 gm CHO, 801 ml H20 (meets 100% est. kcal needs, 100% est. pro needs) Expected Outcomes/Goals: Improved nutritional status, hemodynamic stability. Date of Service: Mar 04, 2025 Billing Provider: CARTER ARCE MD Common Visit Codes: NOT BILLABLE NENA ZHOU RESIDENT Mar 04, 2025 11:15 CARTER ARCE MD Mar 12, 2025 09:41
--- NOTE | 2025-03-04 11:41 | DVHPN2 ---
Progress Note Date Seen: Mar 04, 2025 Medical Necessity Reason Pt with a Central, PICC or Fol: Yes The following are medically ne: Serrano Catheter Reason for serrano catheter: Strict I&O Subjective Review of Systems: RESPIRATORY:Abnormal Other Systems: Patient seen and examined by myself today in follow-up, patient remained intubated on ventilator Patient examined hemodialysis, blood pressure stable Objective vital signs Vital Sign Date Time Temp Pulse Resp B/P (MAP) Pulse Ox O2 Delivery O2 Flow Rate FiO2 03/04/25 10:53 100 26 116/63 (80) 97 50 03/04/25 10:00 99.1 210.4 03/04/25 10:00 Mechanical Ventilator+ Total Intake and Output 03/03/25 03/03/25 03/04/25 15:00 23:00 07:00 Intake Total 261.28 ml 345.10 ml 450.28 ml Output Total 75 ml 0 ml Balance 261.28 ml 270.10 ml 450.28 ml medications Current Medications Medications Dose Ordered Sig/Adolfo Route Start Time Stop Time Status Last Admin Dose Admin Nitroglycerin 0.4 mg Q5MINP PRN SL 02/19/25 15:15 Ipratropium [place] 0.5 mg Q6HR NEB 02/19/25 18:00 03/04/25 11:19 0.5 MG Diagnostic Test (Pha) 1 strip ACHS 02/22/25 07:19 03/04/25 11:20 1 STRIP Insulin Human Regular ACHS SC 02/22/25 07:19 03/04/25 11:20 4 UNITS Dextrose 50 ml UD PRN IV 02/22/25 07:15 Pantoprazole Sodium 40 mg DAILY IV 02/26/25 10:00 03/04/25 09:22 40 MG Atorvastatin Calcium 40 mg HS PO 02/25/25 22:00 03/03/25 22:20 40 MG Enteral Nutritional Formula 1,000 ml 30ML/HR GT 02/25/25 14:30 02/26/25 15:51 1,000 ML Acetaminophen/ Hydrocodone Bitart 1 tab Q4HP PRN PO 02/26/25 09:45 03/02/25 23:52 1 TAB Digoxin 0.125 mg EOD PO 02/28/25 10:00 03/04/25 09:22 0.125 MG Lactulose 30 ml TID PO 02/27/25 14:00 03/04/25 06:39 30 ML Metoclopramide HCl 5 mg Q6HR IV 02/27/25 18:00 03/04/25 11:29 5 MG Metoprolol Tartrate 25 mg BID PO 03/02/25 10:00 03/03/25 22:19 25 MG Levalbuterol HCl 1.25 mg Q6HR NEB 03/02/25 18:00 03/04/25 11:19 1.25 MG Norepinephrine Bitartrate 250 ml @ 3.75 mls/hr Q24H IV 03/03/25 16:15 03/03/25 16:37 3.75 MLS/HR Midazolam HCl 50 ml @ 1 mls/hr Q24H IV 03/03/25 16:15 03/04/25 06:38 6 MLS/HR Fentanyl Citrate 250 ml @ 2.5 mls/hr Q24H IV 03/03/25 16:15 03/03/25 16:55 2.5 MLS/HR Cefepime HCl 50 ml @ 12.5 mls/hr HS IV 03/03/25 22:00 03/03/25 22:18 12.5 MLS/HR Methylprednisolone Sodium Succinate 40 mg BID IV 03/04/25 22:00 Heparin Sodium (Porcine) 5,000 units Q8HR SC 03/04/25 14:00 Examination: LUNGS:Normal, CVS:Normal, MSK:Abnormal laboratory and microbiology Laboratory Tests 03/04/25 03:19 Test 03/04/25 03:19 Range/Units Serum Glucose 227 H 74-106 mg/dL Microbiology Date/Time Source Procedure Growth Status 03/03/25 16:40 Sputum Gram Stain Pending Resulted 03/03/25 16:40 Sputum Respiratory Culture - Preliminary Resulted 02/21/25 11:22 Blood Blood Culture - Final NO GROWTH AFTER 5 DAYS OF INCUBATION. Complete 02/21/25 09:30 Nose MRSA Screen - Final Complete 02/21/25 09:30 Voided Urine Urine Culture - Final Complete Problem List/Assessment/Plan Problem List/Assessment/Plan Acute kidney injury likely ATN , anuric requiring intermittent hemodialysis Acute hypoxic respiratory failure, patient intubated on ventilator Atrial fibrillation with RVR Anemia Vaginal bleeding COPD Congestive heart failure Pulmonary hypertension Recommendations Continue with UF to 3 L as tolerated Epogen 34676 subQ 3 times weekly Albumin 25% p.r.n. hemodialysis Serrano catheter Strict I&Os We will continue to follow I discussed my plan of care with the , daughter and the primary nurse at bedside Plan discussed with: Other (Nurse) Dietary Evaluation Review Comments: 1. Disagree with current TF orders, change to Vital HP @ 40 ml/hr continuously 2. Provide free water flushes of 30 ml Q8 hrs (90 ml total); adjust PRN 3. Monitor BMP/lytes and replete to WNL 4. When appropriate for oral diet, recommend Cardiac diet as tolerated TF Provision: TF at goal to provide 960 ml total volume, 960 kcal (+958 kcal via propofol = 1918 kcal), 84 gm pro, 0 gm fiber, 107 gm CHO, 801 ml H20 (meets 100% est. kcal needs, 100% est. pro needs) Expected Outcomes/Goals: Improved nutritional status, hemodynamic stability. KATJA ZIMMERMAN MD Mar 04, 2025 11:41
[2025-03-04] MEDS ORDERED: ALBUMIN 25% 100 ML IV PRN (11:45)
[2025-03-04] MEDS ORDERED: EPOETIN ALFA-EPBX 10,000 UNIT/1ML VIAL SC SCH (12:00)
[2025-03-04 12:05] LABS: Protein, Urine 211.8 mg/dL (1-14)
[2025-03-04 12:08] LABS: Creatinine, Urine 57.03 mg/dL (30.0-125.0)
[2025-03-04] MEDS: NOREPINEPHRINE 8 MG/250ML KIT 250 ML IV SCH (12:45)
[2025-03-04] MEDS: PROPOFOL 100 ML IV SCH (13:15)
[2025-03-04] MEDS: HEPARIN SODIUM (PORCINE) 5000 UNITS/ML 1ML VIAL SC SCH (13:26)
--- NOTE | 2025-03-04 14:24 | DVHPN2 ---
Consult Progress Note Date Seen: Mar 04, 2025 Subjective Other Systems: No overnight cardiac events reported Objective vital signs Vital Sign Date Time Temp Pulse Resp B/P (MAP) Pulse Ox O2 Delivery O2 Flow Rate FiO2 03/04/25 13:51 98 27 121/57 (78) 95 50 03/04/25 12:00 Mechanical Ventilator+ 03/04/25 12:00 99.0 210.2 Total Intake and Output 03/03/25 03/03/25 03/04/25 15:00 23:00 07:00 Intake Total 261.28 ml 345.10 ml 450.28 ml Output Total 75 ml 0 ml Balance 261.28 ml 270.10 ml 450.28 ml medications Current Medications Medications Dose Ordered Sig/Adolfo Route Start Time Stop Time Status Last Admin Dose Admin Nitroglycerin 0.4 mg Q5MINP PRN SL 02/19/25 15:15 Ipratropium [place] 0.5 mg Q6HR NEB 02/19/25 18:00 03/04/25 11:19 0.5 MG Diagnostic Test (Pha) 1 strip ACHS 02/22/25 07:19 03/04/25 11:20 1 STRIP Insulin Human Regular ACHS SC 02/22/25 07:19 03/04/25 11:20 4 UNITS Dextrose 50 ml UD PRN IV 02/22/25 07:15 Pantoprazole Sodium 40 mg DAILY IV 02/26/25 10:00 03/04/25 09:22 40 MG Atorvastatin Calcium 40 mg HS PO 02/25/25 22:00 03/03/25 22:20 40 MG Enteral Nutritional Formula 1,000 ml 30ML/HR GT 02/25/25 14:30 02/26/25 15:51 1,000 ML Acetaminophen/ Hydrocodone Bitart 1 tab Q4HP PRN PO 02/26/25 09:45 03/02/25 23:52 1 TAB Digoxin 0.125 mg EOD PO 02/28/25 10:00 03/04/25 09:22 0.125 MG Lactulose 30 ml TID PO 02/27/25 14:00 03/04/25 13:26 30 ML Metoclopramide HCl 5 mg Q6HR IV 02/27/25 18:00 03/04/25 11:29 5 MG Metoprolol Tartrate 25 mg BID PO 03/02/25 10:00 03/03/25 22:19 25 MG Levalbuterol HCl 1.25 mg Q6HR NEB 03/02/25 18:00 03/04/25 11:19 1.25 MG Midazolam HCl 50 ml @ 1 mls/hr Q24H IV 03/03/25 16:15 03/04/25 06:38 6 MLS/HR Fentanyl Citrate 250 ml @ 2.5 mls/hr Q24H IV 03/03/25 16:15 03/03/25 16:55 2.5 MLS/HR Cefepime HCl 50 ml @ 12.5 mls/hr HS IV 03/03/25 22:00 03/03/25 22:18 12.5 MLS/HR Methylprednisolone Sodium Succinate 40 mg BID IV 03/04/25 22:00 Heparin Sodium (Porcine) 5,000 units Q8HR SC 03/04/25 14:00 03/04/25 13:26 5,000 UNITS Propofol 100 ml @ 4.326 mls/ hr Q23H7M IV 03/04/25 11:45 03/04/25 13:15 4.326 MLS/HR Epoetin Javan-epbx 10,000 unit 2XW SC 03/04/25 12:00 Norepinephrine Bitartrate 250 ml @ 3.75 mls/hr Q24H IV 03/04/25 12:45 Examination: LUNGS:Abnormal (Endotracheally intubated 40% FiO2 PEEP 8.0), CVS:Abnormal (A-fib controlled rate. On levophed drip), NEURO:Abnormal (Chemically sedated) laboratory and microbiology Laboratory Tests 03/04/25 03:19 Test 03/04/25 03:19 Range/Units Serum Glucose 227 H 74-106 mg/dL Problem List/Assessment/Plan Problem List/Assessment/Plan Acute on chronic decompensated HFpEF with LVEF 50-55%, NYHA Class III Unspecified atrial fibrillation with rapid ventricular rate, on Eliquis therapy, now controlled rate Pulmonary hypertension with decreased RV function, ixzogijn-rw-[id number] degree Tricuspid regurgitation, yrsauwzy-[id number]-uenotg degree Pericardial effusion, resolved Sepsis with multifocal pneumonia Acute on chronic hypoxic respiratory failure Acute kidney injury ?Vaginal bleed, resolved Borderline thrombocytopenia Morbid obesity Plan/Recommendation (Dr. Ruiz) * Transthoracic echocardiogram revealed EF 50-55% * Moderately decreased RV function. PAH at 60 mmHg. Moderate to severe TR * Antiarrhythmic therapy, continue amiodarone drip per pharmacy protocol * Rate control, digoxin therapy EOD * DOAC therapy, Eliquis therapy held given reported vaginal bleed/thrombocytopenia * [id number] Score: 5 points. HAS-BLED Score: 3 points * At high risk for CVA being off DOAC therapy * Replete electrolytes as necessary, K>4 and Mg>2 * Nephrology/Pulmonology/MARINE FITTER recommendations * DVT prophylaxis: Heparin SC started today Thank you for allowing us to participate in this patient's care. Please call if you have any questions or concerns. Critical care time: 30 min. This medical document was created using an electronic medical record system with voice recognition software and computerized dictation system. Although this document has been carefully reviewed, there might still be some phonetic and typographical errors. Occasional wrong-word or ``sound-alike substitutions may have occurred due to the inherent limitations of voice recognition software. These areas are purely typographical due to imperfections of the software programs and do not reflect any compromise in the patient's medical care. Please read the chart carefully and recognize, using context, where these substitutions have occurred. Plan discussed with: Spouse, Other Dietary Evaluation Review Comments: 1. Disagree with current TF orders, change to Vital HP @ 40 ml/hr continuously 2. Provide free water flushes of 30 ml Q8 hrs (90 ml total); adjust PRN 3. Monitor BMP/lytes and replete to WNL 4. When appropriate for oral diet, recommend Cardiac diet as tolerated TF Provision: TF at goal to provide 960 ml total volume, 960 kcal (+958 kcal via propofol = 1918 kcal), 84 gm pro, 0 gm fiber, 107 gm CHO, 801 ml H20 (meets 100% est. kcal needs, 100% est. pro needs) Expected Outcomes/Goals: Improved nutritional status, hemodynamic stability. Date of Service: Mar 04, 2025 Billing Provider: PAUL PASCAL Cardiology Common Codes: [id number] CARE 30-74 MIN PAUL PASCAL Mar 04, 2025 14:24
[2025-03-04] MEDS: ALBUMIN 25% 100 ML IV ONE ×2 (17:30→17:35)
[2025-03-04] MEDS: EPOETIN ALFA-EPBX 10,000 UNIT/1ML VIAL SC SCH (20:50)
[2025-03-04] MEDS: methylPREDNISolone SOD SUCC 40 MG/ML VL IV SCH (22:01)
[2025-03-05] VITALS (105 sets, daily range): BP systolic 92–141; BP diastolic 37–83; PULSE 87–124; RESP 16–29; TEMP 97.3–99.5; O2SAT 93–100
[2025-03-05 04:19] LABS: Basophils # (auto) 0 10 ^3/uL (0-0.2); Basophils % (auto) 0.2 % (0.0-2.0); Eosinophils # (auto) 0 10 ^3/uL (0-0.8); Hemoglobin 7.7 g/dL (12.2-16.2); Lymphocytes # (auto) 0.2 10 ^3/uL (0.4-5.4); Mean Corpuscular Hemoglobin 30.4 pg (28.0-32.0); Mean Corpuscular Hgb Conc. 32.2 g/dL (32.0-36.0); Mean Corpuscular Volume 94.5 fL (80.0-100.0); Monocytes # (auto) 0.8 10 ^3/uL (0-1.3); Monocytes % (auto) 13.4 % (0.0-12.0); Neutrophils % (auto) 82.4 % (37.0-80.0); Nucleated Red Blood Cells % 0.2 %; Platelet Count (auto) 126 10^3/uL (140-450); Red Blood Cells 2.54 10^6/uL (4.0-5.20); Red Cell Distribution Width 20.9 % (11.8-14.3); White Blood Cell 6.1 10^3/uL (4.4-10.8)
[2025-03-05 04:36] LABS: Albumin 3.8 g/dL (3.2-4.8); Anion Gap 11 (5-15); Aspartate Aminotransferase 26 U/L (13-40); BUN/Creatinine Ratio 16.8 (10.0-20.0); Calcium 9.7 mg/dL (8.7-10.4); Carbon Dioxide 29 mmol/L (20-31); Magnesium 2.2 mg/dL (1.6-2.6); Potassium 3.6 mmol/L (3.5-5.1)
[2025-03-05 04:37] LABS: Alanine Aminotransferase 60 U/L (7-40); Alkaline Phosphatase 129 U/L (46-116); Bilirubin, Total 0.6 mg/dL (0.2-1.0); Blood Urea Nitrogen 47 mg/dL (9-23); Chloride 95 mmol/L (98-107); Glucose 231 mg/dL (74-106); Sodium 135 mmol/L (136-145)
[2025-03-05 04:57] LABS: Anisocytosis Slight
[2025-03-05 04:58] LABS: Polychromasia Slight
[2025-03-05 04:59] LABS: Platelet Estimate Decreased; Stomatocytes Few
--- NOTE | 2025-03-05 05:32 | DVH ---
EXAM: XR Chest, 1 View CLINICAL INDICATION: sob TECHNIQUE: Frontal view of the chest. COMPARISON: XY CHEST XRAY 1 VIEW on DOS: 03/04/25, XY CHEST PORTABLE on DOS: 03/03/25, XY CHEST XRAY 1 VIEW on DOS: 03/03/25, XY CHEST PORTABLE on DOS: 03/03/25, XY CHEST PORTABLE on DOS: 03/02/25 FINDINGS: LUNGS AND PLEURAL SPACES: See below. HEART: Cardiomegaly with mild congestion. MEDIASTINUM: Unremarkable. Normal mediastinal contour. BONES/JOINTS: Unremarkable. No acute fracture. TUBES, LINES AND DEVICES: Stable tubes and lines. OTHER FINDINGS: . .. IMPRESSION: 1. Cardiomegaly with mild congestion. 2. No significant change from the prior exam.
[2025-03-05 07:20] LABS: Base Excess 0.3 mmol/L (-2.0-3.0)
[2025-03-05] MEDS ORDERED: DEXTROSE (50%) 50ML SYRG IV PRN (07:30)
--- NOTE | 2025-03-05 08:09 | DVH ---
Bilateral Chest Sonogram Date: 03/05/2025 07:26 AM Clinical history: left sided pleural eff Technique: Limited sonographic evaluation of the bilateral chest was performed to evaluate for pleur al effusion. Finding/Impression: No pleural effusions visualized.
--- NOTE | 2025-03-05 09:44 | DVHPN2 ---
Consult Progress Note Date Seen: Mar 05, 2025 Subjective Other Systems: No overnight cardiac events Objective vital signs Vital Sign Date Time Temp Pulse Resp B/P (MAP) Pulse Ox O2 Delivery O2 Flow Rate FiO2 03/05/25 09:15 98.8 93 26 112/66 (81) 97 209.8 03/05/25 08:16 40 03/05/25 08:00 Mechanical Ventilator+ Total Intake and Output 03/04/25 03/04/25 03/05/25 15:00 23:00 07:00 Intake Total 331.736 ml 667.104 ml 785.23 ml Output Total 30 ml 127 ml Balance 331.736 ml 637.104 ml 658.23 ml medications Current Medications Medications Dose Ordered Sig/Adolfo Route Start Time Stop Time Status Last Admin Dose Admin Nitroglycerin 0.4 mg Q5MINP PRN SL 02/19/25 15:15 Ipratropium [place] 0.5 mg Q6HR NEB 02/19/25 18:00 03/05/25 06:12 0.5 MG Diagnostic Test (Pha) 1 strip ACHS 02/22/25 07:19 03/05/25 06:13 1 STRIP Dextrose 50 ml UD PRN IV 02/22/25 07:15 Cancel Pantoprazole Sodium 40 mg DAILY IV 02/26/25 10:00 03/04/25 09:22 40 MG Atorvastatin Calcium 40 mg HS PO 02/25/25 22:00 03/04/25 22:01 40 MG Enteral Nutritional Formula 1,000 ml 30ML/HR GT 02/25/25 14:30 03/04/25 21:00 1,000 ML Acetaminophen/ Hydrocodone Bitart 1 tab Q4HP PRN PO 02/26/25 09:45 03/02/25 23:52 1 TAB Digoxin 0.125 mg EOD PO 02/28/25 10:00 03/04/25 09:22 0.125 MG Lactulose 30 ml TID PO 02/27/25 14:00 03/05/25 06:12 30 ML Metoclopramide HCl 5 mg Q6HR IV 02/27/25 18:00 03/05/25 06:12 5 MG Levalbuterol HCl 1.25 mg Q6HR NEB 03/02/25 18:00 03/05/25 06:12 1.25 MG Midazolam HCl 50 ml @ 1 mls/hr Q24H IV 03/03/25 16:15 03/04/25 06:38 6 MLS/HR Fentanyl Citrate 250 ml @ 2.5 mls/hr Q24H IV 03/03/25 16:15 03/04/25 23:16 10 MLS/HR Cefepime HCl 50 ml @ 12.5 mls/hr HS IV 03/03/25 22:00 03/04/25 22:01 12.5 MLS/HR Methylprednisolone Sodium Succinate 40 mg BID IV 03/04/25 22:00 03/04/25 22:01 40 MG Propofol 100 ml @ 4.326 mls/ hr Q23H7M IV 03/04/25 11:45 03/05/25 06:45 12.978 MLS/HR Norepinephrine Bitartrate 250 ml @ 3.75 mls/hr Q24H IV 03/04/25 12:45 03/04/25 23:19 18.75 MLS/HR Epoetin Javan-epbx 10,000 unit 2XW SC 03/04/25 21:00 03/04/25 20:50 10,000 UNIT Enoxaparin Sodium 140 mg DAILY SC 03/05/25 10:00 UNV Diagnostic Test (Pha) 1 strip Q6HR 03/05/25 12:00 Insulin Human Regular Q6HR SC 03/05/25 12:00 Dextrose 50 ml UD PRN IV 03/05/25 07:30 Insulin Glargine 20 units DAILY@1000 SC 03/05/25 10:00 Enoxaparin Sodium 140 mg DAILY SC 03/05/25 10:00 Examination: GENERAL:Abnormal, LUNGS:Abnormal (Endotracheally intubated), CVS:Normal (A-fib with PVCs controlled rate), NEURO:Abnormal (Chemically sedated) laboratory and microbiology Laboratory Tests 03/05/25 04:00 Test 03/05/25 04:00 Range/Units Serum Glucose 231 H 74-106 mg/dL Problem List/Assessment/Plan Problem List/Assessment/Plan Acute on chronic decompensated HFpEF with LVEF 50-55%, NYHA Class III Unspecified atrial fibrillation with rapid ventricular rate, on Eliquis therapy, now controlled rate Pulmonary hypertension with decreased RV function, fdbmvzsi-cp-saicug degree Tricuspid regurgitation, gsbogkir-np-hdnjai degree Pericardial effusion, resolved Sepsis with multifocal pneumonia Acute on chronic hypoxic respiratory failure Acute kidney injury ?Vaginal bleed, resolved Borderline thrombocytopenia Morbid obesity Plan/Recommendation (Dr. Ruiz) * Transthoracic echocardiogram revealed EF 50-55% * Moderately decreased RV function. PAH at 60 mmHg. Moderate to severe TR * Antiarrhythmic therapy, discontinue amiodarone drip. Likely persistent a-fib * Rate control, digoxin therapy EOD * DOAC therapy, Eliquis therapy held given reported vaginal bleed/thrombocytopenia/decreased H&H * On therapeutic Lovenox per primary care team. Monitor H&H closely * [id number] Score: 5 points. HAS-BLED Score: 3 points * Replete electrolytes as necessary, K>4 and Mg>2 * Nephrology/Pulmonology/[employer]IST[employer] recommendations We will sign off at this time. Kindly call if in need to continue following up. Thank you for allowing us to participate in this patient's care. Critical care time: 30 min. This medical document was created using an electronic medical record system with voice recognition software and computerized dictation system. Although this document has been carefully reviewed, there might still be some phonetic and typographical errors. Occasional wrong-word or ``sound-alike substitutions may have occurred due to the inherent limitations of voice recognition software. These areas are purely typographical due to imperfections of the software programs and do not reflect any compromise in the patient's medical care. Please read the chart carefully and recognize, using context, where these substitutions have occurred. Plan discussed with: Other Dietary Evaluation Review Comments: 1. Disagree with current TF orders, change to Vital HP @ 40 ml/hr continuously 2. Provide free water flushes of 30 ml Q8 hrs (90 ml total); adjust PRN 3. Monitor BMP/lytes and replete to WNL 4. When appropriate for oral diet, recommend Cardiac diet as tolerated TF Provision: TF at goal to provide 960 ml total volume, 960 kcal (+958 kcal via propofol = 1918 kcal), 84 gm pro, 0 gm fiber, 107 gm CHO, 801 ml H20 (meets 100% est. kcal needs, 100% est. pro needs) Expected Outcomes/Goals: Improved nutritional status, hemodynamic stability. Date of Service: Mar 05, 2025 Billing Provider: PAUL PASCAL Cardiology Common Codes: [id number] CARE 30-74 MIN PAUL PASCAL [facility] Mar 05, 2025 09:44
--- NOTE | 2025-03-05 09:44 | DVHPN2 ---
Progress Note Date Seen: Mar 05, 2025 Medical Necessity Reason Pt with a Central, PICC or Fol: Yes The following are medically ne: Serrano Catheter Reason for serrano catheter: Strict I&O Subjective Review of Systems: RESPIRATORY:Abnormal Other Systems: Patient seen and examined by myself today in follow-up, patient remained intubated on ventilator Objective vital signs Vital Sign Date Time Temp Pulse Resp B/P (MAP) Pulse Ox O2 Delivery O2 Flow Rate FiO2 03/05/25 09:15 98.8 93 26 112/66 (81) 97 209.8 03/05/25 08:16 40 03/05/25 08:00 Mechanical Ventilator+ Total Intake and Output 03/04/25 03/04/25 03/05/25 15:00 23:00 07:00 Intake Total 331.736 ml 667.104 ml 785.23 ml Output Total 30 ml 127 ml Balance 331.736 ml 637.104 ml 658.23 ml medications Current Medications Medications Dose Ordered Sig/Adolfo Route Start Time Stop Time Status Last Admin Dose Admin Nitroglycerin 0.4 mg Q5MINP PRN SL 02/19/25 15:15 Ipratropium [place] 0.5 mg Q6HR NEB 02/19/25 18:00 03/05/25 06:12 0.5 MG Diagnostic Test (Pha) 1 strip ACHS 02/22/25 07:19 03/05/25 06:13 1 STRIP Dextrose 50 ml UD PRN IV 02/22/25 07:15 Cancel Pantoprazole Sodium 40 mg DAILY IV 02/26/25 10:00 03/04/25 09:22 40 MG Atorvastatin Calcium 40 mg HS PO 02/25/25 22:00 03/04/25 22:01 40 MG Enteral Nutritional Formula 1,000 ml 30ML/HR GT 02/25/25 14:30 03/04/25 21:00 1,000 ML Acetaminophen/ Hydrocodone Bitart 1 tab Q4HP PRN PO 02/26/25 09:45 03/02/25 23:52 1 TAB Digoxin 0.125 mg EOD PO 02/28/25 10:00 03/04/25 09:22 0.125 MG Lactulose 30 ml TID PO 02/27/25 14:00 03/05/25 06:12 30 ML Metoclopramide HCl 5 mg Q6HR IV 02/27/25 18:00 03/05/25 06:12 5 MG Levalbuterol HCl 1.25 mg Q6HR NEB 03/02/25 18:00 03/05/25 06:12 1.25 MG Midazolam HCl 50 ml @ 1 mls/hr Q24H IV 03/03/25 16:15 03/04/25 06:38 6 MLS/HR Fentanyl Citrate 250 ml @ 2.5 mls/hr Q24H IV 03/03/25 16:15 03/04/25 23:16 10 MLS/HR Cefepime HCl 50 ml @ 12.5 mls/hr HS IV 03/03/25 22:00 03/04/25 22:01 12.5 MLS/HR Methylprednisolone Sodium Succinate 40 mg BID IV 03/04/25 22:00 03/04/25 22:01 40 MG Propofol 100 ml @ 4.326 mls/ hr Q23H7M IV 03/04/25 11:45 03/05/25 06:45 12.978 MLS/HR Norepinephrine Bitartrate 250 ml @ 3.75 mls/hr Q24H IV 03/04/25 12:45 03/04/25 23:19 18.75 MLS/HR Epoetin Javan-epbx 10,000 unit 2XW SC 03/04/25 21:00 03/04/25 20:50 10,000 UNIT Enoxaparin Sodium 140 mg DAILY SC 03/05/25 10:00 UNV Diagnostic Test (Pha) 1 strip Q6HR 03/05/25 12:00 Insulin Human Regular Q6HR SC 03/05/25 12:00 Dextrose 50 ml UD PRN IV 03/05/25 07:30 Insulin Glargine 20 units DAILY@1000 SC 03/05/25 10:00 Enoxaparin Sodium 140 mg DAILY SC 03/05/25 10:00 Examination: LUNGS:Normal, CVS:Normal, MSK:Normal laboratory and microbiology Laboratory Tests 03/05/25 04:00 Test 03/05/25 04:00 Range/Units Serum Glucose 231 H 74-106 mg/dL Microbiology Date/Time Source Procedure Growth Status 03/03/25 16:40 Sputum Gram Stain - Final Resulted 03/03/25 16:40 Sputum Respiratory Culture - Preliminary Resulted 02/21/25 11:22 Blood Blood Culture - Final NO GROWTH AFTER 5 DAYS OF INCUBATION. Complete 02/21/25 09:30 Nose MRSA Screen - Final Complete 02/21/25 09:30 Voided Urine Urine Culture - Final Complete Problem List/Assessment/Plan Problem List/Assessment/Plan Acute kidney injury superimposed Chronic Kidney Disease stage III secondary to ATN, FeNa > 2%, anuric/oliguric requiring intermittent hemodialysis Acute hypoxic respiratory failure, intubated on ventilator Atrial fibrillation with RVR Anemia Vaginal bleeding COPD Congestive heart failure Pulmonary hypertension Recommendations Hemodialysis tomorrow Epogen 91214 subQ 3 times weekly Albumin 25% p.r.n. hemodialysis Serrano catheter Strict I&Os We will continue to follow I discussed my plan of care with the , daughter and the primary nurse at bedside Plan discussed with: Other (Nurse) My Orders My Orders Orders - KATJA ZIMMERMAN MD Procedure Category Date Status Time Communication Order ORDERS 03/04/25 Transmitted 11:39 Norepinephrine 8 PHA 03/04/25 In Process Mg/250ml Kit 12:45 Epoetin Javan-Epbx PHA 03/04/25 In Process (Retacrit) 21:00 Dietary Evaluation Review Comments: 1. Disagree with current TF orders, change to Vital HP @ 40 ml/hr continuously 2. Provide free water flushes of 30 ml Q8 hrs (90 ml total); adjust PRN 3. Monitor BMP/lytes and replete to WNL 4. When appropriate for oral diet, recommend Cardiac diet as tolerated TF Provision: TF at goal to provide 960 ml total volume, 960 kcal (+958 kcal via propofol = 1918 kcal), 84 gm pro, 0 gm fiber, 107 gm CHO, 801 ml H20 (meets 100% est. kcal needs, 100% est. pro needs) Expected Outcomes/Goals: Improved nutritional status, hemodynamic stability. KATJA ZIMMERMAN MD Mar 05, 2025 09:44
[2025-03-05] MEDS ORDERED: ENOXAPARIN SOD 100 MG/1 ML SYRINGE SC SCH (10:00)
[2025-03-05] MEDS: ENOXAPARIN SOD 150 MG/1 ML SYRINGE SC SCH (10:21)
--- NOTE | 2025-03-05 10:37 | DVH ---
Date: 03/05/2025 09:09 AM Examination: XY KUB ABDOMEN SINGLE VIEW History: abdominal distention Comparison: None TECHNIQUE: Frontal views of the abdomen was obtained. FINDINGS/IMPRESSION: Evaluation is significantly limited due to body habitus and technique of the exam. Dilated loops of small bowel are visualized. Enteric tube tip projects over the expected region of the stomach.
[2025-03-05] MEDS: INSULIN LANTUS (GLARGINE) 1 /0.01ml (100units/ml) SC SCH (10:40)
[2025-03-05] MEDS: ACCU-CHEK COMFORT CURVE STRIP VI SCH (12:33)
[2025-03-05] MEDS: InsuLIN REG 1unit/0.01ml Soln (100units/ml) SC SCH (12:34)
--- NOTE | 2025-03-05 13:31 | DVHPNRES ---
Progress Note Date Seen: Mar 05, 2025 Resident Creating Document: NENA ZHOU RESIDENT Medical Necessity Reason Pt with a Central, PICC or Fol: Yes The following are medically ne: Serrano Catheter Reason for serrano catheter: Strict I&O Subjective Review of Systems Patient was seen and examined at bedside. She remains on mechanical ventilator, FiO2 was brought down to 35% from 40%. Peep was brought down to 6. Respiratory rate still at 26. Patient still on Levophed at four, she is on fentanyl and Versed. We will continue titrating down peep and FiO2. Ordered a kub, showing dilated bowels, held feeding, placed NG to LIS and ordered tap water enema Objective vital signs Vital Sign Date Time Temp Pulse Resp B/P (MAP) Pulse Ox O2 Delivery O2 Flow Rate FiO2 03/05/25 12:00 99.0 97 26 114/38 (63) 93 210.2 03/05/25 12:00 Mechanical Ventilator+ 35 35 Total Intake and Output 03/04/25 03/04/25 03/05/25 15:00 23:00 07:00 Intake Total 331.736 ml 667.104 ml 843.62 ml Output Total 30 ml 127 ml Balance 331.736 ml 637.104 ml 716.62 ml medications Current Medications Medications Dose Ordered Sig/Adolfo Route Start Time Stop Time Status Last Admin Dose Admin Nitroglycerin 0.4 mg Q5MINP PRN SL 02/19/25 15:15 Ipratropium [place] 0.5 mg Q6HR NEB 02/19/25 18:00 03/05/25 11:57 0.5 MG Dextrose 50 ml UD PRN IV 02/22/25 07:15 Cancel Pantoprazole Sodium 40 mg DAILY IV 02/26/25 10:00 03/05/25 10:21 40 MG Atorvastatin Calcium 40 mg HS PO 02/25/25 22:00 03/04/25 22:01 40 MG Enteral Nutritional Formula 1,000 ml 30ML/HR GT 02/25/25 14:30 03/04/25 21:00 1,000 ML Acetaminophen/ Hydrocodone Bitart 1 tab Q4HP PRN PO 02/26/25 09:45 03/02/25 23:52 1 TAB Digoxin 0.125 mg EOD PO 02/28/25 10:00 03/04/25 09:22 0.125 MG Lactulose 30 ml TID PO 02/27/25 14:00 03/05/25 06:12 30 ML Metoclopramide HCl 5 mg Q6HR IV 02/27/25 18:00 03/05/25 12:28 5 MG Levalbuterol HCl 1.25 mg Q6HR NEB 03/02/25 18:00 03/05/25 11:57 1.25 MG Midazolam HCl 50 ml @ 1 mls/hr Q24H IV 03/03/25 16:15 03/04/25 06:38 6 MLS/HR Fentanyl Citrate 250 ml @ 2.5 mls/hr Q24H IV 03/03/25 16:15 03/04/25 23:16 10 MLS/HR Cefepime HCl 50 ml @ 12.5 mls/hr HS IV 03/03/25 22:00 03/04/25 22:01 12.5 MLS/HR Methylprednisolone Sodium Succinate 40 mg BID IV 03/04/25 22:00 03/05/25 10:21 40 MG Propofol 100 ml @ 4.326 mls/ hr Q23H7M IV 03/04/25 11:45 03/05/25 06:45 12.978 MLS/HR Norepinephrine Bitartrate 250 ml @ 3.75 mls/hr Q24H IV 03/04/25 12:45 03/04/25 23:19 18.75 MLS/HR Epoetin Javan-epbx 10,000 unit 2XW SC 03/04/25 21:00 03/04/25 20:50 10,000 UNIT Enoxaparin Sodium 140 mg DAILY SC 03/05/25 10:00 UNV Diagnostic Test (Pha) 1 strip Q6HR 03/05/25 12:00 03/05/25 12:33 1 STRIP Insulin Human Regular Q6HR SC 03/05/25 12:00 03/05/25 12:34 6 UNITS Dextrose 50 ml UD PRN IV 03/05/25 07:30 Insulin Glargine 20 units DAILY@1000 SC 03/05/25 10:00 03/05/25 10:40 20 UNITS Enoxaparin Sodium 140 mg DAILY SC 03/05/25 10:00 03/05/25 10:21 140 MG Examination Physical examination as below: General: Mechanically ventilated, intubated HEENT: Head is normocephalic and atraumatic. Pupils are equal, round, and reactive to light. Neck: Supple with no cervical lymphadenopathy. Heart: Regular rate without murmur, rub, or gallop. Lungs: Mild bilateral diffuse crackles and scattered wheezing Abdomen: No external sign of injury. Bowel sounds are present. Abdomen is soft, nontender. Distended Extremities: Strong peripheral pulses. There is no clubbing, no cyanosis, and no edema. Skin: No rash. Neurologic: Sedated laboratory and microbiology Laboratory Tests 03/05/25 04:00 Test 03/05/25 04:00 Range/Units Serum Glucose 231 H 74-106 mg/dL Microbiology Date/Time Source Procedure Growth Status 03/03/25 16:40 Sputum Gram Stain - Final Resulted 03/03/25 16:40 Sputum Respiratory Culture - Preliminary Resulted 02/21/25 11:22 Blood Blood Culture - Final NO GROWTH AFTER 5 DAYS OF INCUBATION. Complete 02/21/25 09:30 Nose MRSA Screen - Final Complete 02/21/25 09:30 Voided Urine Urine Culture - Final Complete Labs and/or images reviewed: Labs reviewed by me, Image(s) reviewed by me Problem List/Assessment/Plan Problem List/Assessment/Plan Neurology #Metabolic encephalopathy due to sepsis On fentanyl and propofol Cardiovascular #Acute on chronic diastolic CHF with RV failure #Pulmonary hypertension, class 2 vs 3, moderate-severe #NSTEMI likely type 2 #Atrial fibrillation with rapid ventricular rate #Tricuspid regurgitation, [id number] degree #Pericardial effusion, resolved DC amiodarone drip 0.5 Digoxin po .125mg EOD On hemodialysis as needed Cardiology following Urine output 10cc Lovenox 1mg/kg qd due to GFR<30 Pulmonology #Acute on chronic hypoxic and hypercarbic respiratory failure, on mechanical ventilator #Obstructive sleep apnea #Obesity hypoventilation syndrome #Respiratory acidosis, compensated #Pneumonia, gram (+) vs gram (-), atypicals #COPD exacerbation #Mucous plugs s/p bronch 03/03/25 On MV: FIO2: 35%. PEEP: 6. RR: 26. TV: 400ml, will continue waning down Solumedorl 40mg IV bid DuoNebs q6hrs Cefepime IV Nephrology #AN, likely ATN Monitor, continue HD Nephrology following Endocrinology #Morbid obesity Gastroenterology #Bowel distention, possible SBO, ileus #Constipation Reviewed KUB, cannot fit CAT scan NG to LIS Tap water enema Held tube feeding: Glucerna DC Reglan IV DC Lactulose po #Transaminitis, likely due to sepsis Monitor, trending down Hematology and Oncology #Thrombocytopenia likely due to sepsis Improving #Anemia normocytic normochromic Monitor, currently stable Infectious Disease #Septic shock due to Pneumonia, gram (+) vs gram (-), atypicals Dermatology X Gynecology #Vaginal bleeding Consulted [employer], bleeding stopped Pelvic US: Unable to visualize uterus and both ovaries. DVT ppx Lovenox PUD ppx Protonix Drips Levo Fent Versed -> Propofol Lines TLC left IJ 02/20/25, ordered PICC line PRITI right, non-tunneled dialysis 03/03/25 ReIntubated 03/03/25 Intubated 02/20, extubated 03/01 Updated family member on patient's current status. Goals of care were discussed for over 30 minutes. FULL CODE. Critical care time spent excluding procedures was 81 mins Case was discussed with Dr. Holley Plan discussed with: Daughter, Other (RN) My Orders My Orders Orders - NENA ZHOU RESIDENT Procedure Category Date Status Time Chest Portable XY 03/05/25 Resulted 04:00 Abg W/ Co-Ox RT 03/05/25 Logged 04:00 Stool Occult Blood LAB 03/05/25 Logged 04:00 Chest Ultrasound US 03/05/25 Resulted 06:38 Glucose Blood PHA 03/05/25 In Process (Accu-Chek Comfort 12:00 Insulin R (Human) PHA 03/05/25 In Process (Insulin R) 12:00 Dextrose 50% Syringe PHA 03/05/25 In Process 07:30 Insulin Lantus PHA 03/05/25 In Process (Glargine) (Lantus) 10:00 Enoxaparin Sodium PHA 03/05/25 In Process (Lovenox) 10:00 Kub Abdomen Single XY 03/05/25 Resulted View 09:04 Ventilator Orders RT 03/05/25 Transmitted 09:05 Dietary Evaluation Review Comments: 1. Disagree with current TF orders, change to Vital HP @ 40 ml/hr continuously 2. Provide free water flushes of 30 ml Q8 hrs (90 ml total); adjust PRN 3. Monitor BMP/lytes and replete to WNL 4. When appropriate for oral diet, recommend Cardiac diet as tolerated TF Provision: TF at goal to provide 960 ml total volume, 960 kcal (+958 kcal via propofol = 1918 kcal), 84 gm pro, 0 gm fiber, 107 gm CHO, 801 ml H20 (meets 100% est. kcal needs, 100% est. pro needs) Expected Outcomes/Goals: Improved nutritional status, hemodynamic stability. Date of Service: Mar 05, 2025 Billing Provider: MARY LOU HOLLEY MD Common Visit Codes: 94261-[id number] CARE 30-74 MIN, [id number] CARE-EACH +30MIN NENA ZHOU Mar 05, 2025 13:31 MARY LOU HOLLEY MD Mar 06, 2025 15:06
[2025-03-05 18:36] LABS: INR 1.22 (0.9-1.15); Partial Thromboplastin Time 27.4 SEC (24.5-34.5); Prothrombin Time 12.7 sec (9.3-11.8)
[2025-03-06] VITALS (107 sets, daily range): BP systolic 87–167; BP diastolic 39–96; PULSE 62–132; RESP 20–27; TEMP 97.3–98.4; O2SAT 89–100
[2025-03-06 03:56] LABS: Basophils # (auto) 0 10 ^3/uL (0-0.2); Eosinophils # (auto) 0 10 ^3/uL (0-0.8); Lymphocytes # (auto) 0.3 10 ^3/uL (0.4-5.4); Platelet Count (auto) 101 10^3/uL (140-450); Red Cell Distribution Width 20.3 % (11.8-14.3)
[2025-03-06 03:58] LABS: Basophils % (auto) 0.2 % (0.0-2.0); Hematocrit 24.8 % (36.0-46.0); Hemoglobin 8.3 g/dL (12.2-16.2); Lymphocytes % (auto) 1.7 % (10.0-50.0); Mean Corpuscular Hemoglobin 31.3 pg (28.0-32.0); Mean Corpuscular Hgb Conc. 33.4 g/dL (32.0-36.0); Mean Corpuscular Volume 93.9 fL (80.0-100.0); Monocytes % (auto) 5.5 % (0.0-12.0); Neutrophils # (auto) 16.6 10 ^3/uL (1.6-8.6); Neutrophils % (auto) 92.6 % (37.0-80.0); Nucleated Red Blood Cells % 0.2 %; Red Blood Cells 2.64 10^6/uL (4.0-5.20); White Blood Cell 17.9 10^3/uL (4.4-10.8)
[2025-03-06 04:17] LABS: Albumin 3.5 g/dL (3.2-4.8); Anion Gap 12 (5-15); BUN/Creatinine Ratio 18.4 (10.0-20.0); Calcium 9.7 mg/dL (8.7-10.4); Carbon Dioxide 28 mmol/L (20-31); Potassium 3.9 mmol/L (3.5-5.1)
[2025-03-06 04:18] LABS: Bilirubin, Total 0.5 mg/dL (0.2-1.0)
[2025-03-06 04:21] LABS: Alanine Aminotransferase 42 U/L (7-40); Alkaline Phosphatase 129 U/L (46-116); Aspartate Aminotransferase 10 U/L (13-40); Blood Urea Nitrogen 62 mg/dL (9-23); Chloride 93 mmol/L (98-107); Glucose 204 mg/dL (74-106); Sodium 133 mmol/L (136-145); Total Protein 5.7 g/dL (5.7-8.2)
[2025-03-06 05:00] LABS: Anisocytosis Slight
[2025-03-06 05:01] LABS: Platelet Estimate Decreased; Stomatocytes Few
--- NOTE | 2025-03-06 05:14 | DVH ---
EXAM: XR Chest, 1 View CLINICAL INDICATION: sob TECHNIQUE: Frontal view of the chest. COMPARISON: XY CHEST PORTABLE on DOS: 03/05/25, XY CHEST PORTABLE on DOS: 03/03/25, XY CHEST PORTABLE o n DOS: 03/03/25, XY CHEST PORTABLE on DOS: 03/02/25, XY CHEST PORTABLE on DOS: 03/01/25 FINDINGS: LUNGS AND PLEURAL SPACES: Mild congestive heart failure. No consolidation. No pneumothorax. HEART: Unremarkable. No cardiomegaly. MEDIASTINUM: Unremarkable. Normal mediastinal contour. BONES/JOINTS: Unremarkable. No acute fracture. TUBES, LINES AND DEVICES: Right internal jugular central venous catheter tip in the superior vena c esdras. The endotracheal tube (ETT) is in satisfactory position. Enteric tube tip in the stomach. OTHER FINDINGS: . IMPRESSION: Mild congestive heart failure.
[2025-03-06 06:14] LABS: Base Excess -0.9 mmol/L (-2.0-3.0)
[2025-03-06] MEDS ORDERED: BUMETANIDE INJECTION 25 MG in GIVE UN-DILUTED 0 ML IV SCH (10:00)
[2025-03-06] MEDS: ALBUMIN 25% 100 ML IV ONE ×2 (10:45)
[2025-03-06] MEDS: SODIUM CHLOR 0.9% PF (SALINE LOCK) 10ML VIAL/SYR IV SCH (10:47)
[2025-03-06] MEDS: LINEZOLID 600MG/300ML 300 ML IV SCH (11:10)
--- NOTE | 2025-03-06 12:00 | DVHPN2 ---
Progress Note Date Seen: Mar 06, 2025 Medical Necessity Reason Pt with a Central, PICC or Fol: Yes The following are medically ne: Serrano Catheter Reason for serrano catheter: Strict I&O Subjective Review of Systems: RESPIRATORY:Abnormal Other Systems: Patient seen and examined by myself today in follow-up, patient remained intubated on ventilator Patient examined hemodialysis, blood pressure stable Objective vital signs Vital Sign Date Time Temp Pulse Resp B/P (MAP) Pulse Ox O2 Delivery O2 Flow Rate FiO2 03/06/25 11:00 125 26 97/44 (61) 100 03/06/25 10:23 35 03/06/25 10:00 Mechanical Ventilator+ 03/06/25 10:00 98.2 208.8 Total Intake and Output 03/05/25 03/05/25 03/06/25 15:00 23:00 07:00 Intake Total 269.66 ml 512.080 ml 311.324 ml Output Total 260 ml 65 ml Balance 269.66 ml 252.080 ml 246.324 ml medications Current Medications Medications Dose Ordered Sig/Adolfo Route Start Time Stop Time Status Last Admin Dose Admin Nitroglycerin 0.4 mg Q5MINP PRN SL 02/19/25 15:15 Ipratropium [place] 0.5 mg Q6HR NEB 02/19/25 18:00 03/06/25 06:18 0.5 MG Dextrose 50 ml UD PRN IV 02/22/25 07:15 Cancel Pantoprazole Sodium 40 mg DAILY IV 02/26/25 10:00 03/06/25 10:47 40 MG Digoxin 0.125 mg EOD PO 02/28/25 10:00 03/04/25 09:22 0.125 MG Levalbuterol HCl 1.25 mg Q6HR NEB 03/02/25 18:00 03/06/25 06:18 1.25 MG Midazolam HCl 50 ml @ 1 mls/hr Q24H IV 03/03/25 16:15 03/04/25 06:38 6 MLS/HR Fentanyl Citrate 250 ml @ 2.5 mls/hr Q24H IV 03/03/25 16:15 03/05/25 23:17 10 MLS/HR Cefepime HCl 50 ml @ 12.5 mls/hr HS IV 03/03/25 22:00 03/05/25 22:09 12.5 MLS/HR Propofol 100 ml @ 4.326 mls/ hr Q23H7M IV 03/04/25 11:45 03/06/25 09:16 12.978 MLS/HR Norepinephrine Bitartrate 250 ml @ 3.75 mls/hr Q24H IV 03/04/25 12:45 03/05/25 20:03 15 MLS/HR Epoetin Javan-epbx 10,000 unit 2XW SC 03/04/25 21:00 03/04/25 20:50 10,000 UNIT Enoxaparin Sodium 140 mg DAILY SC 03/05/25 10:00 UNV Diagnostic Test (Pha) 1 strip Q6HR 03/05/25 12:00 03/06/25 05:41 1 STRIP Insulin Human Regular Q6HR SC 03/05/25 12:00 03/06/25 05:38 3 UNITS Dextrose 50 ml UD PRN IV 03/05/25 07:30 Enoxaparin Sodium 140 mg DAILY SC 03/05/25 10:00 03/05/25 10:21 140 MG Sodium Chloride 10 ml QSHIFT@10,22 IV 03/06/25 10:00 03/06/25 10:47 10 ML Linezolid 300 ml @ 150 mls/hr Q12HR IV 03/06/25 10:00 03/06/25 11:10 150 MLS/HR Examination: LUNGS:Normal, CVS:Normal, MSK:Abnormal laboratory and microbiology Laboratory Tests 03/06/25 03:20 Test 03/06/25 03:20 Range/Units Serum Glucose 204 H 74-106 mg/dL Microbiology Date/Time Source Procedure Growth Status 03/04/25 10:05 Voided Urine Urine Culture - Final Enterococcus faecium - VRE Complete 03/03/25 16:40 Sputum Gram Stain - Final Resulted 03/03/25 16:40 Sputum Respiratory Culture - Preliminary Resulted 02/21/25 11:22 Blood Blood Culture - Final NO GROWTH AFTER 5 DAYS OF INCUBATION. Complete 02/21/25 09:30 Nose MRSA Screen - Final Complete Problem List/Assessment/Plan Problem List/Assessment/Plan Acute kidney injury superimposed Chronic Kidney Disease stage III secondary to ATN, FeNa > 2%, anuric/oliguric requiring intermittent hemodialysis Acute hypoxic respiratory failure, intubated on ventilator Atrial fibrillation with RVR Anemia Vaginal bleeding COPD Congestive heart failure Pulmonary hypertension Ileus Leukocytosis Septic shock Recommendations Continue with UF 2L as tolerated Epogen 20140 subQ 3 times weekly Albumin 25% p.r.n. hemodialysis Serrano catheter Strict I&Os NGT to intermittent suction Sepsis workup per primary team Noted plan for tracheostomy We will continue to follow Plan discussed with: Other (Nurse) My Orders My Orders Orders - KATJA ZIMMERMAN MD Procedure Category Date Status Time Communication Order ORDERS 03/05/25 Transmitted 16:44 Hemodialysis Orders ORDERS 03/06/25 Transmitted 07:00 Kub Abdomen Single XY 03/06/25 Logged View 11:52 Dietary Evaluation Review Comments: 1. Disagree with current TF orders, change to Vital HP @ 40 ml/hr continuously 2. Provide free water flushes of 30 ml Q8 hrs (90 ml total); adjust PRN 3. Monitor BMP/lytes and replete to WNL 4. When appropriate for oral diet, recommend Cardiac diet as tolerated TF Provision: TF at goal to provide 960 ml total volume, 960 kcal (+958 kcal via propofol = 1918 kcal), 84 gm pro, 0 gm fiber, 107 gm CHO, 801 ml H20 (meets 100% est. kcal needs, 100% est. pro needs) Expected Outcomes/Goals: Improved nutritional status, hemodynamic stability. KATJA ZIMMERMAN MD Mar 06, 2025 12:00
--- NOTE | 2025-03-06 14:06 | DVH ---
Date: 03/06/2025 01:17 PM Examination: XY KUB ABDOMEN SINGLE VIEW History: ABDOMINAL DISTENTION Comparison: XY KUB ABDOMEN SINGLE VIEW on DOS: 03/05/25 TECHNIQUE: Frontal views of the abdomen was obtained. FINDINGS/IMPRESSION: Significant gaseous distended loops of colon are visualized. Coarse calcification in the pelvis may represent fibroid. Lung bases are collimated from field of view. Further evaluation with CT is recommended.
--- NOTE | 2025-03-06 19:29 | DVHPNRES ---
Progress Note Date Seen: Mar 06, 2025 Resident Creating Document: NENA ZHOU RESIDENT Medical Necessity Reason Pt with a Central, PICC or Fol: Yes The following are medically ne: Serrano Catheter Reason for serrano catheter: Strict I&O Subjective Review of Systems Patient was seen and examined at bedside. She remains on mechanical ventilator, FiO2 was 35%. Peep was brought down to 6. Respiratory rate still at 26. Patient still on Levophed at 10, she is on fentanyl and Versed. We will continue titrating down peep and FiO2. Ordered a kub, showing dilated bowels, held feeding, placed NG to LIS and ordered tap water enema. Repeat KUB shows more bowel dilation, consulted GI doctor for possible decompression. Performed rectal examination, no hard stools found. Measured intraabdominal pressure through intravesical catheter, currently at 19mmhg. Objective vital signs Vital Sign Date Time Temp Pulse Resp B/P (MAP) Pulse Ox O2 Delivery O2 Flow Rate FiO2 03/06/25 18:00 30 03/06/25 18:00 83 03/06/25 18:00 26 100 Mechanical Ventilator+ 03/06/25 17:15 115/60 03/06/25 14:45 98.1 208.6 Total Intake and Output 03/05/25 03/05/25 03/06/25 15:00 23:00 07:00 Intake Total 269.66 ml 512.080 ml 311.324 ml Output Total 260 ml 65 ml Balance 269.66 ml 252.080 ml 246.324 ml medications Current Medications Medications Dose Ordered Sig/Adolfo Route Start Time Stop Time Status Last Admin Dose Admin Nitroglycerin 0.4 mg Q5MINP PRN SL 02/19/25 15:15 Ipratropium [place] 0.5 mg Q6HR NEB 02/19/25 18:00 03/06/25 18:26 0.5 MG Dextrose 50 ml UD PRN IV 02/22/25 07:15 Cancel Pantoprazole Sodium 40 mg DAILY IV 02/26/25 10:00 03/06/25 10:47 40 MG Levalbuterol HCl 1.25 mg Q6HR NEB 03/02/25 18:00 03/06/25 18:26 1.25 MG Midazolam HCl 50 ml @ 1 mls/hr Q24H IV 03/03/25 16:15 03/04/25 06:38 6 MLS/HR Fentanyl Citrate 250 ml @ 2.5 mls/hr Q24H IV 03/03/25 16:15 03/05/25 23:17 10 MLS/HR Cefepime HCl 50 ml @ 12.5 mls/hr HS IV 03/03/25 22:00 03/05/25 22:09 12.5 MLS/HR Propofol 100 ml @ 4.326 mls/ hr Q23H7M IV 03/04/25 11:45 03/06/25 09:16 12.978 MLS/HR Norepinephrine Bitartrate 250 ml @ 3.75 mls/hr Q24H IV 03/04/25 12:45 03/05/25 20:03 15 MLS/HR Epoetin Javan-epbx 10,000 unit 2XW SC 03/04/25 21:00 03/04/25 20:50 10,000 UNIT Enoxaparin Sodium 140 mg DAILY SC 03/05/25 10:00 UNV Diagnostic Test (Pha) 1 strip Q6HR 03/05/25 12:00 03/06/25 18:22 1 STRIP Insulin Human Regular Q6HR SC 03/05/25 12:00 03/06/25 05:38 3 UNITS Dextrose 50 ml UD PRN IV 03/05/25 07:30 Enoxaparin Sodium 140 mg DAILY SC 03/05/25 10:00 03/05/25 10:21 140 MG Sodium Chloride 10 ml QSHIFT@10,22 IV 03/06/25 10:00 03/06/25 10:47 10 ML Linezolid 300 ml @ 150 mls/hr Q12HR IV 03/06/25 10:00 03/06/25 11:10 150 MLS/HR Examination Physical examination as below: General: Mechanically ventilated, intubated HEENT: Head is normocephalic and atraumatic. Pupils are equal, round, and reactive to light. Neck: Supple with no cervical lymphadenopathy. Heart: Regular rate without murmur, rub, or gallop. Lungs: Mild bilateral diffuse crackles and scattered wheezing Abdomen: No external sign of injury. Bowel sounds are present. Abdomen is soft, nontender. Distended Extremities: Strong peripheral pulses. There is no clubbing, no cyanosis, and no edema. Skin: No rash. Neurologic: Sedated laboratory and microbiology Laboratory Tests 03/06/25 03:20 Test 03/06/25 03:20 Range/Units Serum Glucose 204 H 74-106 mg/dL Microbiology Date/Time Source Procedure Growth Status 03/04/25 10:05 Voided Urine Urine Culture - Final Enterococcus faecium - VRE Complete 03/03/25 16:40 Sputum Gram Stain - Final Resulted 03/03/25 16:40 Sputum Respiratory Culture - Preliminary Resulted 02/21/25 11:22 Blood Blood Culture - Final NO GROWTH AFTER 5 DAYS OF INCUBATION. Complete 02/21/25 09:30 Nose MRSA Screen - Final Complete Labs and/or images reviewed: Labs reviewed by me, Image(s) reviewed by me Problem List/Assessment/Plan Problem List/Assessment/Plan Neurology #Metabolic encephalopathy due to sepsis On fentanyl and propofol Cardiovascular #Acute on chronic diastolic CHF with RV failure #Pulmonary hypertension, class 2 vs 3, moderate-severe #NSTEMI likely type 2 #Atrial fibrillation with rapid ventricular rate #Tricuspid regurgitation, efpwvlcp-or-ilagwt degree #Pericardial effusion, resolved DC Digoxin po .125mg EOD On hemodialysis as needed Cardiology following Urine output 10cc Held Lovenox 1mg/kg qd Pulmonology #Acute on chronic hypoxic and hypercarbic respiratory failure, on mechanical ventilator #Obstructive sleep apnea #Obesity hypoventilation syndrome #Respiratory acidosis, compensated #Pneumonia, gram (+) vs gram (-), atypicals #COPD exacerbation #Mucous plugs s/p bronch 03/03/25 On MV: FIO2: 35%. PEEP: 6. RR: 26. TV: 400ml, will continue waning down DuoNebs q6hrs Cefepime IV Nephrology #AN, likely ATN Monitor, continue HD Nephrology following Endocrinology #Morbid obesity Gastroenterology #Bowel distention, possible SBO, ileus #Constipation # intra abdominal hypertension Reviewed KUB, cannot fit CAT scan NG to LIS for decompression Tap water enema Consulted GI for possible decompression Performed rectal examination, no hard stools. 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 DVT ppx Lovenox PUD ppx Protonix Drips Levo 10 Fent Propofol Lines TLC left IJ 02/20/25, ordered PICC line PRITI right, non-tunneled dialysis 03/03/25 ReIntubated 03/03/25 Intubated 02/20, extubated 03/01 Updated family member on patient's current status. Goals of care were discussed for over 30 minutes. FULL CODE. Critical care time spent excluding procedures was 93 mins Case was discussed with Dr. Holley Plan discussed with: Spouse, Other (RN) My Orders My Orders Orders - NENA ZHOU RESIDENT Procedure Category Date Status Time Chest Portable XY 03/06/25 Resulted 04:00 Abg W/ Co-Ox RT 03/06/25 Logged 04:00 Intra-Abdominal THEO 03/06/25 In Process Pressure 06:25 Respiratory Culture MINA 03/06/25 Logged W/ Gs 06:27 Blood Culture MINA 03/06/25 In Process 06:27 Linezolid 600mg/300ml PHA 03/06/25 In Process (Zyvox) 10:00 Communication Order ORDERS 03/06/25 Transmitted 09:56 Respiratory Misc. RT 03/06/25 Transmitted Order 10:23 Ventilator Orders RT 03/06/25 Transmitted 12:57 Dietary Evaluation Review Comments: 1. Disagree with current TF orders, change to Vital HP @ 40 ml/hr continuously 2. Provide free water flushes of 30 ml Q8 hrs (90 ml total); adjust PRN 3. Monitor BMP/lytes and replete to WNL 4. When appropriate for oral diet, recommend Cardiac diet as tolerated TF Provision: TF at goal to provide 960 ml total volume, 960 kcal (+958 kcal via propofol = 1918 kcal), 84 gm pro, 0 gm fiber, 107 gm CHO, 801 ml H20 (meets 100% est. kcal needs, 100% est. pro needs) Expected Outcomes/Goals: Improved nutritional status, hemodynamic stability. Date of Service: Mar 06, 2025 Billing Provider: MARY LOU HOLLEY MD Common Visit Codes: 57835-[id number] CARE 30-74 MIN, [id number] CARE-EACH +30MIN NENA ZHOU RESIDENT Mar 06, 2025 19:29 MARY LOU HOLLEY MD Mar 07, 2025 14:12
--- NOTE | 2025-03-06 21:33 | DVHINCON2 ---
Date of service: Mar 06, 2025 Family History: Patient reports no known family medical history. Allergies: Coded Allergies: NO KNOWN ALLERGIES (Unverified , 04/04/24) Home Meds Active Scripts Diltiazem Hcl (DILTIAZEM HCL ER) 240 Mg Cap, 240 MG PO DAILY for 30 Days, #60 CAP Prov:ROLAPRIMOLARISSA RESIDENT 07/01/24 Reported Medications Atorvastatin Calcium (Lipitor) 20 Mg Tab, 1 TAB PO DAILY 06/28/24 Omeprazole (Omeprazole Dr) 20 Mg Cap, 1 CAP PO QAM 06/28/24 Cyclobenzaprine Hcl (Cyclobenzaprine Hcl) 10 Mg Tab, 1 TAB PO TID PRN for FOR MUSCLE SPASM 06/28/24 Bumetanide (Bumex) 2 Mg Tab, 1 TAB PO DAILY 06/28/24 Hydrocodone-Acetaminophen (Hydrocodone Bitartrate/AC 10-325 mg) 1 Tab Tab, 1 TAB PO Q8HR PRN for PAIN SCALE 7 THRU 10 04/04/24 Metoprolol Tartrate (Metoprolol Tartrate) 25 Mg Tab, 1 TAB PO BID, #60 TAB 5 Refills 04/04/24 Spironolactone (Spironolactone) 25 Mg Tab, 1 TAB PO DAILY, #90 TAB 1 Refill 04/04/24 Aspirin (Aspirin Low Dose) 81 Mg Chw, 1 TAB PO DAILY, #30 TAB 3 Refills 04/04/24 Benazepril Hcl (Benazepril Hcl) 20 Mg Tab, 1 TAB PO DAILY, #30 TAB 5 Refills 04/04/24 Current Medications Current Medications Medications (Trade) Dose Ordered Sig/Adolfo Route PRN Reason Start Time Stop Time Status Last Admin Sodium Chloride (Saline Lock Ns) 10 ml QSHIFT@10,22 IV 03/06/25 10:00 03/06/25 10:47 Bumetanide 25 mg/ Miscellaneous 100 ml @ 4 mls/hr Q24H IV 03/06/25 10:00 03/06/25 09:56 DC Linezolid 300 ml @ 150 mls/hr Q12HR IV 03/06/25 10:00 03/06/25 11:10 Vital Signs Vital Signs Date Time Temp Pulse Resp B/P (MAP) Pulse Ox O2 Delivery O2 Flow Rate FiO2 03/06/25 20:00 26 99 Mechanical Ventilator+ 30 30 03/06/25 20:00 97.3 111 97.3 Labs/Diagnostic Data Labs Test 03/06/25 11:25 03/06/25 06:07 03/06/25 03:20 03/05/25 17:47 Range/Units Lactic Acid Level 1.0 0.4-2.0 mmol/L Blood Gas Specimen Type Arterial Blood Gas Sample Site Right radial Blood Gas Patient Temperature 37.0 Arterial Blood Date Drawn [id number] Arterial Blood pH 7.364 7.350-7.450 Arterial Blood Partial Pressure CO2 44.0 32.0-45.0 mmHg Arterial Blood Partial Pressure O2 69.9 L 83.0-108.0 mmHg Arterial Blood HCO3 24.5 21.0-28.0 mmol/L Arterial Blood Oxygen Saturation 92.7 L 94.0-98.0 % Arterial Blood Base Excess -0.9 -2.0-3.0 mmol/L Arterial Blood Oxyhemoglobin 92.2 L 94.0-98.0 % Arterial Blood Carboxyhemoglobin 0.5 0.5-1.5 % Arterial Blood Methemoglobin 0.0 0.0-1.5 % Rodrigo Test Modified Blood Gas Total Hemoglobin 9.30 L 12.0-16.0 g/dL Blood Gas Set Respiration Rate 26.0 Blood Gas Modality Vent - ac FiO2 % 35.0 Blood Gas Tidal Volume 400.0 Blood Gas PEEP or CPAP 6.0 White Blood Count 17.9 #H 4.4-10.8 10^3/uL Red Blood Count 2.64 L 4.0-5.20 10^6/uL Hemoglobin 8.3 L 12.2-16.2 g/dL Hematocrit 24.8 L 36.0-46.0 % Mean Corpuscular Volume 93.9 80.0-100.0 fL Mean Corpuscular Hemoglobin 31.3 28.0-32.0 pg Mean Corpuscular Hemoglobin Concent 33.4 32.0-36.0 g/dL Red Cell Distribution Width 20.3 H 11.8-14.3 % Platelet Count 101 L 140-450 10^3/uL Mean Platelet Volume 8.9 6.9-10.8 fL Neutrophils (%) (Auto) 92.6 H 37.0-80.0 % Lymphocytes (%) (Auto) 1.7 L 10.0-50.0 % Monocytes (%) (Auto) 5.5 0.0-12.0 % Eosinophils (%) (Auto) 0.0 0.0-7.0 % Basophils (%) (Auto) 0.2 0.0-2.0 % Neutrophils # (Auto) 16.6 H 1.6-8.6 10 ^3/uL Lymphocytes # (Auto) 0.3 L 0.4-5.4 10 ^3/uL Monocytes # (Auto) 1.0 0-1.3 10 ^3/uL Eosinophils # (Auto) 0 0-0.8 10 ^3/uL Basophils # (Auto) 0 0-0.2 10 ^3/uL Nucleated Red Blood Cells 0.2 % Platelet Estimate Decreased Anisocytosis (manual) Slight Stomatocytes Few Sodium Level 133 L 136-145 mmol/L Potassium Level 3.9 3.5-5.1 mmol/L Chloride Level 93 L 98-107 mmol/L Carbon Dioxide Level 28 20-31 mmol/L Anion Gap 12 5-15 Blood Urea Nitrogen 62 #H 9-23 mg/dL Creatinine 3.37 H 0.550-1.02 mg/dL Glomerular Filtration Rate Calc 14 >90 mL/min BUN/Creatinine Ratio 18.4 10.0-20.0 Serum Glucose 204 H 74-106 mg/dL Calcium Level 9.7 8.7-10.4 mg/dL Total Bilirubin 0.5 0.2-1.0 mg/dL Aspartate Amino Transferase (AST) 10 L 13-40 U/L Alanine Aminotransferase (ALT) 42 H 7-40 U/L Alkaline Phosphatase 129 H 46-116 U/L Total Protein 5.7 5.7-8.2 g/dL Albumin 3.5 3.2-4.8 g/dL Digoxin Level 2.21 *H 0.8-2 ng/mL Prothrombin Time 12.7 H 9.3-11.8 sec Prothrombin Time INR 1.22 H 0.9-1.15 Activated Partial Thromboplast Time 27.4 24.5-34.5 SEC Test 03/05/25 04:00 03/04/25 10:05 03/03/25 08:30 03/03/25 04:19 Range/Units Polychromasia Slight Magnesium Level 2.2 1.6-2.6 mg/dL Iron Level 17 L 50-170 ug/dL Total Iron Binding Capacity 212 L 250-425 ug/dL Percent Iron Saturation 8.0 L 15-50 % Ferritin 52.8 10-291 ng/mL Urine Color Yellow Yellow Urine Clarity Cloudy H Clear Urine pH 5.5 5.0-9.0 Urine Specific [place] 1.017 1.001-1.035 Urine Protein 1+ H Negative Urine Ketones Negative Negative Urine Blood 3+ H Negative /uL Urine Nitrite Negative Negative Urine Bilirubin Negative Negative Urine Urobilinogen Normal Negative mg/dL Urine Leukocyte Esterase 1+ Negative /uL Urine RBC 24 0 - 4 /hpf Urine Microscopic WBC 12 H 0-5 /HPF Urine Squamous Epithelial Cells Few <5 /hpf Urine Bacteria Few H None Seen /hpf Urine Creatinine 57.03 30.0-125.0 mg/dL Urine Sodium 50 40-220 mmol/L Urine Glucose Trace Normal mg/dL Urine Total Protein 211.8 H 1-14 mg/dL Blood Gas EPAP 10 Blood Gas IPAP 18 Hypochromasia (manual) Slight Phosphorus Level 5.6 H 2.4-5.1 mg/dL Test 03/03/25 03:23 03/02/25 07:00 03/01/25 10:37 03/01/25 03:20 Range/Units Vitamin D 25-Hydroxy 19.0 L 30.0-100 ng/mL Parathyroid Hormone (Intact) 409.2 H 18.4-80.1 pg/mL Hepatitis A IgM Antibody Negative Hepatitis B Surface Antigen Negative Negative Hepatitis B Core IgM Antibody Negative Negative Hepatitis C Antibody Negative Negative Blood Gas Pressure Support 8 Blood Gas Critical Value Read Back yes Blood Gas Notified Whom rajeev Alanis md Blood Gas Notified Time [id number] Blood Gas Notified By Ovalocytes Few Test 02/28/25 13:38 02/28/25 11:40 02/26/25 03:33 02/25/25 16:10 Range/Units Blood Gas Spontaneous Rate 25 Blood Gas Spontaneous Tidal Volume 457 POC Glucose 183 H 70-106 mg/dl Clumped Platelets Few Free Thyroxine (T4) Calculated 1.36 0.89-1.76 ng/dL Total Triiodothyronine (TT3) 0.53 L 0.60-1.81 ng/mL Test 02/25/25 13:00 02/25/25 03:00 02/24/25 07:22 02/19/25 19:01 Range/Units Influenza Type A Antigen Negative Negative Influenza Type B Antigen Negative Negative SARS-CoV-2 Antigen (Rapid) Negative NEGATIVE Hemoglobin A1c 5.3 <5.7 % A1C B-Type Natriuretic Peptide 168.53 0-100 pg/mL Triglycerides Level 116 < 150 mg/dL Cholesterol Level 209 H < 200 mg/dL LDL Cholesterol 124 H < 100 mg/dL HDL Cholesterol 64 H 40-59 mg/dL Specimen Drawn By Gbaby circuit board drafter Urine Hyaline Casts Many 0 - 2 /lpf Test 02/19/25 15:21 02/19/25 11:28 Range/Units Troponin I High Sensitivity 48 *H </=34 ng/L Thyroid Stimulating Hormone (TSH) 6.93 H 0.55-4.78 uIU/mL Microbiology Date/Time Source Procedure Growth Status 03/04/25 10:05 Voided Urine Urine Culture - Final Enterococcus faecium - VRE Complete 03/03/25 16:40 Sputum Gram Stain - Final Resulted 03/03/25 16:40 Sputum Respiratory Culture - Preliminary Resulted 02/21/25 11:22 Blood Blood Culture - Final NO GROWTH AFTER 5 DAYS OF INCUBATION. Complete 02/21/25 09:30 Nose MRSA Screen - Final Complete Assessment [id number] INTUBATED HEMODYNAMICALLY LABILE ON VASOPRESSOR WBC ELEVATED SOURCE OF SEPSIS TO BE DETERMINED ABD SOFT DISTENDED DIFFICULT EVAL SEC TO MORBID OBESITY AND INTUBATION RECTAL EXAM AND DISIMPACTION DONE RECTAL TUBE PLACED LIQUID STOOL NOTED HIGH RISK FOR SURGERY CONTINUE CLOSE OBSERVATION Plan discussed with: Other DONNA SAHA MD Mar 06, 2025 21:33
--- NOTE | 2025-03-06 21:59 | DVHINCON2 ---
HISTORY OF PRESENT ILLNESS: This is consultation done at the request of Dr. Recio. This patient is referred to me in the ICU, unable to give history. Most of the information obtained from the chart. She is 69 years old with past medical history of hypertension, diabetes, atrial fibrillation, CHF, COPD and on home oxygen, complaining of bilateral leg swelling. She is morbidly obese and she got intubated because of COPD and possibility of pneumonia, shortness of breath and recently she had no bowel activity, but she did have bowel activity yesterday and were loose bowels, and I was asked to see her with regards to a possibility of sepsis from the abdomen and at this point, there is no history available other than the information of the nursing staff and the chart. She was admitted to [place] a month and half ago for elevated potassium, anemia and was diagnosed with arrhythmia, but no fever or chills. PAST MEDICAL HISTORY: AFib, CHF, hypertension, pulmonary COPD. She is on Eliquis. CHF and home oxygen. PAST SURGICAL HISTORY: Not available. PHYSICAL EXAMINATION: VITAL SIGNS: She is intubated, morbidly obese. GENERAL: Mildly pale. No cyanosis or jaundice. NECK: Supple, nontender with no thyromegaly, lymphadenopathy. CHEST AND LUNGS: Relatively clear. ABDOMEN: Distended, cannot be evaluated because of intubation and morbid obesity. RECTAL: Examination was carried out. Fecal disimpaction was done and a rectal tube was placed. Liquid stool was obtained, and there is a possibility that this could have been secondary to ileus or colitis. PLAN: At this point, she is very high risk for surgery, and there is no immediate emergency condition that requires emergent surgery. She needs close observation and monitoring of her stool activity and intravenous antibiotics and ongoing evaluation to determine the need for surgery based upon source of sepsis. MD KENNEDY Spence/TRIPP TID: [id number] RECEIPT: [id number] cc: Enoc Recio MD
[2025-03-06] MEDS: EPOETIN ALFA-EPBX 10,000 UNIT/1ML VIAL SC ONE (22:34)
--- NOTE | 2025-03-06 22:40 | DVHINCON2 ---
Date of service: Mar 06, [address] Ward Reason for Consultation Abdominal and cecal distention History of Present Illness Patient is a 69-year-old lady who was morbidly obese and admitted due to hypoxic respiratory failure requiring intubation for COPD exacerbation Patient has been noted to have increasing abdominal distention and GI was consulted because of moderate large bowel and cecal distention. Patient did have a response to an enema treatment yesterday and had a large bowel movement according to the nurse Today the enema was given but patient only had some liquid stool coming out. A rectal examination was performed by Dr. Lopez and there was no residual stool in the rectal vault and no fecal disimpaction required Abdominal x-ray shows diffusely dilated loops of small and large intestine with moderate suspected cecal distention Patient was recently hospitalized at [facility] also for some cardiac arrhythmia and hyperkalemia Past Medical History Past medical history: Hypertension, type 2 diabetes mellitus, atrial fibrillation, Eliquis, CHF, COPD, chronic hypoxic respiratory failure, dependence on supplemental oxygen morbid obesity Family History: Patient reports no known family medical history. Allergies: Coded Allergies: NO KNOWN ALLERGIES (Unverified , 04/04/24) Home Meds Active Scripts Diltiazem Hcl (DILTIAZEM HCL ER) 240 Mg Cap, 240 MG PO DAILY for 30 Days, #60 CAP Prov:LARISSA CA RESIDENT 07/01/24 Reported Medications Atorvastatin Calcium (Lipitor) 20 Mg Tab, 1 TAB PO DAILY 06/28/24 Omeprazole (Omeprazole Dr) 20 Mg Cap, 1 CAP PO QAM 06/28/24 Cyclobenzaprine Hcl (Cyclobenzaprine Hcl) 10 Mg Tab, 1 TAB PO TID PRN for FOR MUSCLE SPASM 06/28/24 Bumetanide (Bumex) 2 Mg Tab, 1 TAB PO DAILY 06/28/24 Hydrocodone-Acetaminophen (Hydrocodone Bitartrate/AC 10-325 mg) 1 Tab Tab, 1 TAB PO Q8HR PRN for PAIN SCALE 7 THRU 10 04/04/24 Metoprolol Tartrate (Metoprolol Tartrate) 25 Mg Tab, 1 TAB PO BID, #60 TAB 5 Refills 04/04/24 Spironolactone (Spironolactone) 25 Mg Tab, 1 TAB PO DAILY, #90 TAB 1 Refill 04/04/24 Aspirin (Aspirin Low Dose) 81 Mg Chw, 1 TAB PO DAILY, #30 TAB 3 Refills 04/04/24 Benazepril Hcl (Benazepril Hcl) 20 Mg Tab, 1 TAB PO DAILY, #30 TAB 5 Refills 04/04/24 Current Medications Current Medications Medications (Trade) Dose Ordered Sig/Adolfo Route PRN Reason Start Time Stop Time Status Last Admin Sodium Chloride (Saline Lock Ns) 10 ml QSHIFT@10,22 IV 03/06/25 10:00 03/06/25 10:47 Bumetanide 25 mg/ Miscellaneous 100 ml @ 4 mls/hr Q24H IV 03/06/25 10:00 03/06/25 09:56 DC Linezolid 300 ml @ 150 mls/hr Q12HR IV 03/06/25 10:00 03/06/25 11:10 Vital Signs Vital Signs Date Time Temp Pulse Resp B/P (MAP) Pulse Ox O2 Delivery O2 Flow Rate FiO2 03/06/25 20:00 26 99 Mechanical Ventilator+ 30 30 03/06/25 20:00 97.3 111 97.3 Physical Exam VITAL SIGNS: She is intubated, morbidly obese. GENERAL: CRISTIANE No cyanosis or jaundice.; NG tube output is minimal and bilious clear NECK: Supple, nontender with no thyromegaly, lymphadenopathy. CHEST AND LUNGS: Relatively clear.decreased BS at bases ABDOMEN: soft Distended, obese; hypoactive bowel sounds RECTAL: Reported no fecal impaction and no stool in the vault Labs/Diagnostic Data Labs Test 03/06/25 11:25 03/06/25 06:07 03/06/25 03:20 03/05/25 17:47 Range/Units Lactic Acid Level 1.0 0.4-2.0 mmol/L Blood Gas Specimen Type Arterial Blood Gas Sample Site Right radial Blood Gas Patient Temperature 37.0 Arterial Blood Date Drawn [id number] Arterial Blood pH 7.364 7.350-7.450 Arterial Blood Partial Pressure CO2 44.0 32.0-45.0 mmHg Arterial Blood Partial Pressure O2 69.9 L 83.0-108.0 mmHg Arterial Blood HCO3 24.5 21.0-28.0 mmol/L Arterial Blood Oxygen Saturation 92.7 L 94.0-98.0 % Arterial Blood Base Excess -0.9 -2.0-3.0 mmol/L Arterial Blood Oxyhemoglobin 92.2 L 94.0-98.0 % Arterial Blood Carboxyhemoglobin 0.5 0.5-1.5 % Arterial Blood Methemoglobin 0.0 0.0-1.5 % Rodrigo Test Modified Blood Gas Total Hemoglobin 9.30 L 12.0-16.0 g/dL Blood Gas Set Respiration Rate 26.0 Blood Gas Modality Vent - ac FiO2 % 35.0 Blood Gas Tidal Volume 400.0 Blood Gas PEEP or CPAP 6.0 White Blood Count 17.9 #H 4.4-10.8 10^3/uL Red Blood Count 2.64 L 4.0-5.20 10^6/uL Hemoglobin 8.3 L 12.2-16.2 g/dL Hematocrit 24.8 L 36.0-46.0 % Mean Corpuscular Volume 93.9 80.0-100.0 fL Mean Corpuscular Hemoglobin 31.3 28.0-32.0 pg Mean Corpuscular Hemoglobin Concent 33.4 32.0-36.0 g/dL Red Cell Distribution Width 20.3 H 11.8-14.3 % Platelet Count 101 L 140-450 10^3/uL Mean Platelet Volume 8.9 6.9-10.8 fL Neutrophils (%) (Auto) 92.6 H 37.0-80.0 % Lymphocytes (%) (Auto) 1.7 L 10.0-50.0 % Monocytes (%) (Auto) 5.5 0.0-12.0 % Eosinophils (%) (Auto) 0.0 0.0-7.0 % Basophils (%) (Auto) 0.2 0.0-2.0 % Neutrophils # (Auto) 16.6 H 1.6-8.6 10 ^3/uL Lymphocytes # (Auto) 0.3 L 0.4-5.4 10 ^3/uL Monocytes # (Auto) 1.0 0-1.3 10 ^3/uL Eosinophils # (Auto) 0 0-0.8 10 ^3/uL Basophils # (Auto) 0 0-0.2 10 ^3/uL Nucleated Red Blood Cells 0.2 % Platelet Estimate Decreased Anisocytosis (manual) Slight Stomatocytes Few Sodium Level 133 L 136-145 mmol/L Potassium Level 3.9 3.5-5.1 mmol/L Chloride Level 93 L 98-107 mmol/L Carbon Dioxide Level 28 20-31 mmol/L Anion Gap 12 5-15 Blood Urea Nitrogen 62 #H 9-23 mg/dL Creatinine 3.37 H 0.550-1.02 mg/dL Glomerular Filtration Rate Calc 14 >90 mL/min BUN/Creatinine Ratio 18.4 10.0-20.0 Serum Glucose 204 H 74-106 mg/dL Calcium Level 9.7 8.7-10.4 mg/dL Total Bilirubin 0.5 0.2-1.0 mg/dL Aspartate Amino Transferase (AST) 10 L 13-40 U/L Alanine Aminotransferase (ALT) 42 H 7-40 U/L Alkaline Phosphatase 129 H 46-116 U/L Total Protein 5.7 5.7-8.2 g/dL Albumin 3.5 3.2-4.8 g/dL Digoxin Level 2.21 *H 0.8-2 ng/mL Prothrombin Time 12.7 H 9.3-11.8 sec Prothrombin Time INR 1.22 H 0.9-1.15 Activated Partial Thromboplast Time 27.4 24.5-34.5 SEC Test 03/05/25 04:00 03/04/25 10:05 03/03/25 08:30 03/03/25 04:19 Range/Units Polychromasia Slight Magnesium Level 2.2 1.6-2.6 mg/dL Iron Level 17 L 50-170 ug/dL Total Iron Binding Capacity 212 L 250-425 ug/dL Percent Iron Saturation 8.0 L 15-50 % Ferritin 52.8 10-291 ng/mL Urine Color Yellow Yellow Urine Clarity Cloudy H Clear Urine pH 5.5 5.0-9.0 Urine Specific [place]ss[place] 1.017 1.001-1.035 Urine Protein 1+ H Negative Urine Ketones Negative Negative Urine Blood 3+ H Negative /uL Urine Nitrite Negative Negative Urine Bilirubin Negative Negative Urine Urobilinogen Normal Negative mg/dL Urine Leukocyte Esterase 1+ Negative /uL Urine RBC 24 0 - 4 /hpf Urine Microscopic WBC 12 H 0-5 /HPF Urine Squamous Epithelial Cells Few <5 /hpf Urine Bacteria Few H None Seen /hpf Urine Creatinine 57.03 30.0-125.0 mg/dL Urine Sodium 50 40-220 mmol/L Urine Glucose Trace Normal mg/dL Urine Total Protein 211.8 H 1-14 mg/dL Blood Gas EPAP 10 Blood Gas IPAP 18 Hypochromasia (manual) Slight Phosphorus Level 5.6 H 2.4-5.1 mg/dL Test 03/03/25 03:23 03/02/25 07:00 03/01/25 10:37 03/01/25 03:20 Range/Units Vitamin D 25-Hydroxy 19.0 L 30.0-100 ng/mL Parathyroid Hormone (Intact) 409.2 H 18.4-80.1 pg/mL Hepatitis A IgM Antibody Negative Hepatitis B Surface Antigen Negative Negative Hepatitis B Core IgM Antibody Negative Negative Hepatitis C Antibody Negative Negative Blood Gas Pressure Support 8 Blood Gas Critical Value Read Back yes Blood Gas Notified Whom rajeev Alanis md Blood Gas Notified Time [id number] Blood Gas Notified By Ovalocytes Few Test 02/28/25 13:38 02/28/25 11:40 02/26/25 03:33 02/25/25 16:10 Range/Units Blood Gas Spontaneous Rate 25 Blood Gas Spontaneous Tidal Volume 457 POC Glucose 183 H 70-106 mg/dl Clumped Platelets Few Free Thyroxine (T4) Calculated 1.36 0.89-1.76 ng/dL Total Triiodothyronine (TT3) 0.53 L 0.60-1.81 ng/mL Test 02/25/25 13:00 02/25/25 03:00 02/24/25 07:22 02/19/25 19:01 Range/Units Influenza Type A Antigen Negative Negative Influenza Type B Antigen Negative Negative SARS-CoV-2 Antigen (Rapid) Negative NEGATIVE Hemoglobin A1c 5.3 <5.7 % A1C B-Type Natriuretic Peptide 168.53 0-100 pg/mL Triglycerides Level 116 < 150 mg/dL Cholesterol Level 209 H < 200 mg/dL LDL Cholesterol 124 H < 100 mg/dL HDL Cholesterol 64 H 40-59 mg/dL Specimen Drawn By Gabby hicks Urine Hyaline Casts Many 0 - 2 /lpf Test 02/19/25 15:21 02/19/25 11:28 Range/Units Troponin I High Sensitivity 48 *H </=34 ng/L Thyroid Stimulating Hormone (TSH) 6.93 H 0.55-4.78 uIU/mL Microbiology Date/Time Source Procedure Growth Status 03/04/25 10:05 Voided Urine Urine Culture - Final Enterococcus faecium - VRE Complete 03/03/25 16:40 Sputum Gram Stain - Final Resulted 03/03/25 16:40 Sputum Respiratory Culture - Preliminary Resulted 02/21/25 11:22 Blood Blood Culture - Final NO GROWTH AFTER 5 DAYS OF INCUBATION. Complete 02/21/25 09:30 Nose MRSA Screen - Final Complete CHEST ABDOMINAL XRAY FINDINGS/IMPRESSION: Significant gaseous distended loops of colon are visualized. Coarse calcification in the pelvis may represent fibroid. Lung bases are collimated from field of view. Problems(with codes): (1) Gaseous distention of intestine determined by X-ray (2) Gaseous abdominal distention (3) Acute on chronic diastolic heart failure (4) Pulmonary edema (5) Non-STEMI (non-ST elevated myocardial infarction) (6) CHF (congestive heart failure) (7) Morbid obesity Plan/Recommendation Plan Patient was examined and at bedside She does not appear to need an emergent colonic decompression at this time I will try a rectal tube to see if that will allow adequate decompression We will also follow her with serial abdominal x-ray tonight and tomorrow morning If the patient has persistent cecal or large bowel distention then I will be standing by for a possible sigmoidoscopy with decompression Risks of perforation with a sigmoidoscopy and also possible risk of spontaneous rupture of the cecum because of gaseous distention were discussed with the patient's and daughter There appeared to comprehend and were in agreement with this course of action Monitor labs Plan discussed with: Daughter, Other (ICU Nurse; Dr Lopez; Dr Ward) ROLAN SAHA MD Mar 06, 2025 22:40
[2025-03-07] VITALS (106 sets, daily range): BP systolic 69–130; BP diastolic 33–69; PULSE 86–160; RESP 21–39; TEMP 97.8–98.9; O2SAT 89–100
--- NOTE | 2025-03-07 02:53 | DVH ---
Exam: XY KUB ABDOMEN SINGLE VIEW Indication: TRACKING PROGRESS OF BOWEL GAS Comparison: XY KUB ABDOMEN SINGLE VIEW on DOS: 03/06/25, XY KUB ABDOMEN SINGLE VIEW on DOS: 03/05/25 Technique: Limited radiograph of the abdomen. The study is limited by the patient's body habitus a nd generalized underpenetration of the images. Findings: There is notable gaseous distention of bowel loops throughout the abdomen. There is no definite evidence for pneumoperitoneum. No abnormal calcifications noted. Impression: 1. Extremely limited study. 2. gaseous distention.Persistent
[2025-03-07 04:03] LABS: Basophils # (auto) 0 10 ^3/uL (0-0.2); Basophils % (auto) 0.1 % (0.0-2.0); Eosinophils # (auto) 0.1 10 ^3/uL (0-0.8); Eosinophils % (auto) 0.3 % (0.0-7.0); Hemoglobin 7.5 g/dL (12.2-16.2); Nucleated Red Blood Cells % 0.2 %
[2025-03-07 04:05] LABS: Hematocrit 23.2 % (36.0-46.0); Lymphocytes # (auto) 0.6 10 ^3/uL (0.4-5.4); Lymphocytes % (auto) 3.1 % (10.0-50.0); Mean Corpuscular Hgb Conc. 32.2 g/dL (32.0-36.0); Mean Corpuscular Volume 93.2 fL (80.0-100.0); Monocytes # (auto) 0.7 10 ^3/uL (0-1.3); Monocytes % (auto) 3.7 % (0.0-12.0); Neutrophils # (auto) 16.9 10 ^3/uL (1.6-8.6); Neutrophils % (auto) 92.8 % (37.0-80.0); Platelet Count (auto) 69 10^3/uL (140-450); Red Blood Cells 2.49 10^6/uL (4.0-5.20); Red Cell Distribution Width 20.8 % (11.8-14.3); White Blood Cell 18.2 10^3/uL (4.4-10.8)
[2025-03-07 04:30] LABS: Alanine Aminotransferase 24 U/L (7-40); Albumin 3.6 g/dL (3.2-4.8); Alkaline Phosphatase 93 U/L (46-116); Anion Gap 12 (5-15); Calcium 9.4 mg/dL (8.7-10.4); Carbon Dioxide 27 mmol/L (20-31); Magnesium 2.1 mg/dL (1.6-2.6); Potassium 3.7 mmol/L (3.5-5.1)
[2025-03-07 04:31] LABS: Bilirubin, Total 0.8 mg/dL (0.2-1.0)
[2025-03-07 04:35] LABS: Aspartate Aminotransferase < 8 U/L (13-40); Blood Urea Nitrogen 51 mg/dL (9-23); Chloride 93 mmol/L (98-107); Glucose 153 mg/dL (74-106); Sodium 132 mmol/L (136-145); Total Protein 5.5 g/dL (5.7-8.2)
[2025-03-07 04:47] LABS: BUN/Creatinine Ratio 17.6 (10.0-20.0)
[2025-03-07 05:24] LABS: Anisocytosis Slight; Platelet Estimate Decreased
[2025-03-07 05:25] LABS: Stomatocytes Few
[2025-03-07 06:17] LABS: Base Excess -1.1 mmol/L (-2.0-3.0)
--- NOTE | 2025-03-07 08:23 | DVH ---
XY KUB ABDOMEN SINGLE VIEW HISTORY: for sigmoidoscopy TECHNICAL DATA: 1 view of the abdomen. COMPARISON: XY KUB ABDOMEN SINGLE VIEW on DOS: 03/07/25, XY KUB ABDOMEN SINGLE VIEW on DOS: 03/06/25, XY KUB ABDOMEN SINGLE VIEW on DOS: 03/05/25 FINDINGS: Large colonic gas. Enteric tube is partially seen. A calcified uterus fibroid is seen. Collapse of the right femoral head. IMPRESSION: Large colonic gaseous amount.
--- NOTE | 2025-03-07 08:53 | DVH ---
INDICATION: sob TECHNIQUE: Single frontal view of the chest was obtained COMPARISON: XY CHEST PORTABLE on DOS: 03/06/25, XY CHEST PORTABLE on DOS: 03/06/25, XY CHEST PORTABLE on DOS: 03/05/25, XY CHEST XRAY 1 VIEW on DOS: 03/04/25, XY CHEST PORTABLE on DOS: 03/03/25, XY CHEST PORTABLE on DOS: 03/06/25 FINDINGS: Lines and Tubes: Endotracheal tube projects 4 cm above the sejal. Enteric tube courses below the ann phragm. Right PICC tip projects over the brachiocephalic vein. Recommend advancement. Lungs: Multifocal bibasilar opacities. Pleura: Trace bilateral pleural effusions No pneumothorax. Cardiomediastinal contours: Cardiomegaly. Bones: No acute osseous abnormality. IMPRESSION: 1. Right PICC tip projects over the brachiocephalic vein. Recommend advancement.
--- NOTE | 2025-03-07 10:04 | DVHPNRES ---
Progress Note Date Seen: Mar 07, 2025 Resident Creating Document: NENA ZHOU RESIDENT Medical Necessity Reason Pt with a Central, PICC or Fol: Yes The following are medically ne: Serrano Catheter Reason for serrano catheter: Strict I&O Subjective Review of Systems Patient was seen and examined at bedside. She remains on mechanical ventilator, FiO2 was 35%. Peep was brought down to 5. Respiratory rate still at 26. Patient on Levophed at 20, she is on fentanyl and Versed. Repeat KUB shows more bowel dilation, consulted GI doctor for decompression to be performed today. Measured intraabdominal pressure through intravesical catheter, currently at 13mmhg, coming down Objective vital signs Vital Sign Date Time Temp Pulse Resp B/P (MAP) Pulse Ox O2 Delivery O2 Flow Rate FiO2 03/07/25 09:47 119 26 103/46 (65) 91 30 03/07/25 06:00 Mechanical Ventilator+ 03/07/25 00:00 97.9 97.9 Total Intake and Output 03/06/25 03/06/25 03/07/25 15:00 23:00 07:00 Intake Total 502.574 ml 428.824 ml 553.814 ml Output Total 0 ml 0 ml Balance 502.574 ml 428.824 ml 553.814 ml medications Current Medications Medications Dose Ordered Sig/Adolfo Route Start Time Stop Time Status Last Admin Dose Admin Nitroglycerin 0.4 mg Q5MINP PRN SL 02/19/25 15:15 Ipratropium [place] 0.5 mg Q6HR NEB 02/19/25 18:00 03/07/25 05:52 0.5 MG Dextrose 50 ml UD PRN IV 02/22/25 07:15 Cancel Pantoprazole Sodium 40 mg DAILY IV 02/26/25 10:00 03/06/25 10:47 40 MG Levalbuterol HCl 1.25 mg Q6HR NEB 03/02/25 18:00 03/07/25 05:52 1.25 MG Midazolam HCl 50 ml @ 1 mls/hr Q24H IV 03/03/25 16:15 03/04/25 06:38 6 MLS/HR Fentanyl Citrate 250 ml @ 2.5 mls/hr Q24H IV 03/03/25 16:15 03/06/25 22:32 10 MLS/HR Cefepime HCl 50 ml @ 12.5 mls/hr HS IV 03/03/25 22:00 03/06/25 22:19 12.5 MLS/HR Propofol 100 ml @ 4.326 mls/ hr Q23H7M IV 03/04/25 11:45 03/07/25 07:50 12.978 MLS/HR Norepinephrine Bitartrate 250 ml @ 3.75 mls/hr Q24H IV 03/04/25 12:45 03/07/25 02:59 22.5 MLS/HR Epoetin Javan-epbx 10,000 unit 2XW SC 03/04/25 21:00 03/04/25 20:50 10,000 UNIT Enoxaparin Sodium 140 mg DAILY SC 03/05/25 10:00 UNV Diagnostic Test (Pha) 1 strip Q6HR 03/05/25 12:00 03/07/25 06:46 1 STRIP Insulin Human Regular Q6HR SC 03/05/25 12:00 03/06/25 05:38 3 UNITS Dextrose 50 ml UD PRN IV 03/05/25 07:30 Sodium Chloride 10 ml QSHIFT@10,22 IV 03/06/25 10:00 03/06/25 22:13 10 ML Linezolid 300 ml @ 150 mls/hr Q12HR IV 03/06/25 10:00 03/06/25 22:20 150 MLS/HR Norepinephrine Bitartrate 32 mg/ Sodium Chloride 250 ml @ 0.938 mls/ hr Q24H IV 03/07/25 09:00 Vasopressin 20 units/Sodium Chloride 100 ml @ 9 mls/hr Q11H7M IV 03/07/25 09:00 Examination Physical examination as below: General: Mechanically ventilated, intubated HEENT: Head is normocephalic and atraumatic. Pupils are equal, round, and reactive to light. Neck: Supple with no cervical lymphadenopathy. Heart: Regular rate without murmur, rub, or gallop. Lungs: Mild bilateral diffuse crackles and scattered wheezing Abdomen: No external sign of injury. Bowel sounds are present. Abdomen is soft, nontender. Distended Extremities: Strong peripheral pulses. There is no clubbing, no cyanosis, and no edema. Skin: No rash. Neurologic: Sedated laboratory and microbiology Laboratory Tests 03/07/25 03:25 Test 03/07/25 03:25 Range/Units Serum Glucose 153 H 74-106 mg/dL Microbiology Date/Time Source Procedure Growth Status 03/04/25 10:05 Voided Urine Urine Culture - Final Enterococcus faecium - VRE Complete 03/03/25 16:40 Sputum Gram Stain - Final Complete 03/03/25 16:40 Sputum Respiratory Culture - Final Complete 02/21/25 11:22 Blood Blood Culture - Final NO GROWTH AFTER 5 DAYS OF INCUBATION. Complete 02/21/25 09:30 Nose MRSA Screen - Final Complete Labs and/or images reviewed: Labs reviewed by me, Image(s) reviewed by me Problem List/Assessment/Plan Problem List/Assessment/Plan Neurology #Metabolic encephalopathy due to sepsis On fentanyl and propofol Cardiovascular #Acute on chronic diastolic CHF with RV failure #Pulmonary hypertension, class 2 vs 3, moderate-severe #NSTEMI likely type 2 #Atrial fibrillation with rapid ventricular rate #Tricuspid regurgitation, [id number] degree #Pericardial effusion, resolved On hemodialysis as needed Cardiology following Held Lovenox 1mg/kg qd due to thrombocytopenia Pulmonology #Acute on chronic hypoxic and hypercarbic respiratory failure, on mechanical ventilator #Obstructive sleep apnea #Obesity hypoventilation syndrome #Respiratory acidosis, compensated #Pneumonia, gram (+) vs gram (-), atypicals #COPD exacerbation #Mucous plugs s/p bronch 03/03/25 On MV: FIO2: 35%. PEEP: 6. RR: 26. TV: 400ml, will continue waning down DuoNebs q6hrs Cefepime IV Nephrology #AN, likely ATN Monitor, continue HD Nephrology following Endocrinology #Morbid obesity Gastroenterology #Bowel distention, possible SBO, ileus #Constipation Reviewed KUB, cannot fit CAT scan NG to LIS for decompression Tap water enema Consulted GI for decompression Performed rectal examination, no hard stools. 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 DVT ppx Lovenox PUD ppx Protonix Drips Levo 10 Vasopressin Fent Propofol Lines TLC left IJ 02/20/25, ordered PICC line PRITI right, non-tunneled dialysis 03/03/25 ReIntubated 03/03/25 Intubated 02/20, extubated 03/01 Updated family member on patient's current status. Had a discussion with spouse about tracheostomy, he wants to purse it. Goals of care were discussed for over 30 minutes. FULL CODE. Critical care time spent excluding procedures including monitoring intraabdominal pressuress was 83 mins Case was discussed with Dr. Holley Plan discussed with: Spouse, Other (RN) My Orders My Orders Orders - NENA ZHOU Procedure Category Date Status Time Communication Order ORDERS 03/06/25 Transmitted 09:56 Respiratory Misc. RT 03/06/25 Transmitted Order 10:23 Ventilator Orders RT 03/06/25 Transmitted 19:25 Chest Portable XY 03/07/25 Resulted 04:00 Abg W/ Co-Ox RT 03/07/25 Logged 04:00 Ventilator Orders RT 03/07/25 Transmitted 06:24 Sodium Chl 0.9% PHA 03/07/25 In Process (Ns... 09:00 Sodium Chl 0.9% PHA 03/07/25 In Process (So... W/Vasopressin 09:00 Dietary Evaluation Review Comments: 1. Disagree with current TF orders, change to Vital HP @ 40 ml/hr continuously 2. Provide free water flushes of 30 ml Q8 hrs (90 ml total); adjust PRN 3. Monitor BMP/lytes and replete to WNL 4. When appropriate for oral diet, recommend Cardiac diet as tolerated TF Provision: TF at goal to provide 960 ml total volume, 960 kcal (+958 kcal via propofol = 1918 kcal), 84 gm pro, 0 gm fiber, 107 gm CHO, 801 ml H20 (meets 100% est. kcal needs, 100% est. pro needs) Expected Outcomes/Goals: Improved nutritional status, hemodynamic stability. Date of Service: Mar 07, 2025 Billing Provider: MARY LOU HOLLEY MD Common Visit Codes: 31901-GCJLAYHL CARE 30-74 MIN, 84814-ROXHXIHC CARE-EACH +30MIN NENA ZHOU Mar 07, 2025 10:04 MARY LOU HOLLEY MD Mar 09, 2025 20:29
--- NOTE | 2025-03-07 10:26 | DVHOP2 ---
Operative Report DATE OF OPERATION: 03/07/25 PROCEDURE: INCOMPLETE COLONOSCOPY WITH COLONIC DECOMPRESSION PREOPERATIVE INDICATION: The patient is a 69 -year-old female undergoing colonoscopy for colonic and large intestinal ileus POSTOPERATIVE DIAGNOSES: 1. Patient had a moderate amount of residual liquid and solid stool seen throughout the extent of the examination up to the splenic flexure beyond which the colonoscope could not be advanced safely 2. Irrigation and aspiration was performed and colonic decompression was done and no underlying gross lesion was found PROCEDURE PERFORMED BY: Rolan Recio M.D. SCOPE: Olympus videocolonoscope. ASA CLASS: 3. PREOPERATIVE MEDICATIONS: Patient is ICU intubated sedated PROCEDURE IN DETAIL: After obtaining an informed consent, the patient was placed on left lateral decubitus position. She was then sedated with the above medications. A rectal examination was performed that was normal. The colonoscope was then passed through the anus into the rectosigmoid and through the descending colon up to the splenic flexure to about 50 cm above the anal verge. The colonoscope was then withdrawn as there was too much debris and stool above the level of this area. It was not safe to pass the colonoscope beyond this area because of poor visualization Moderate amount of irrigation and aspiration and decompression was performed Patient was noted to be passing moderate amount of flatus during the procedure No gross lesions were seen. The colonoscope was then withdrawn The patient tolerated the procedure well without difficulty. WITHDRAWAL TIME: Not adequate QUALITY OF THE PREP: [place] Bowel Prep score: Not applicable COMPLICATIONS : None SPECIMENS: None DISPOSITION: Monitor in ICU PLAN: 1. Patient needs to be given laxative to get a good bowel cleanout 2. We can start her with the MiraLax 17 g p.o. daily 3. We will start her on GoLYTELY 1 gal p.o. slowly via the NG tube over the next 24 hours 4. If required a rectal tube can be reinserted especially when the stools become more liquid 5. IV Reglan 5 mg q.8 hours 6. I will check with pharmacy if the patient is able to get any physostigmine or neostigmine ROLAN RECIO MD Mar 07, 2025 10:26
[2025-03-07] MEDS: METOCLOPRAMIDE HCL 5MG/ml INJ 2ml VIAL ONE (10:39)
--- NOTE | 2025-03-07 10:48 | DVHPN2 ---
Progress Note Date Seen: Mar 07, 2025 Medical Necessity Reason Pt with a Central, PICC or Fol: Yes The following are medically ne: Serrano Catheter Reason for serrano catheter: Strict I&O Objective vital signs Vital Sign Date Time Temp Pulse Resp B/P (MAP) Pulse Ox O2 Delivery O2 Flow Rate FiO2 03/07/25 09:47 119 26 103/46 (65) 91 30 03/07/25 06:00 Mechanical Ventilator+ 03/07/25 00:00 97.9 97.9 Total Intake and Output 03/06/25 03/06/25 03/07/25 15:00 23:00 07:00 Intake Total 502.574 ml 428.824 ml 553.814 ml Output Total 0 ml 0 ml Balance 502.574 ml 428.824 ml 553.814 ml medications Current Medications Medications Dose Ordered Sig/Adolfo Route Start Time Stop Time Status Last Admin Dose Admin Nitroglycerin 0.4 mg Q5MINP PRN SL 02/19/25 15:15 Ipratropium [place] 0.5 mg Q6HR NEB 02/19/25 18:00 03/07/25 05:52 0.5 MG Dextrose 50 ml UD PRN IV 02/22/25 07:15 Cancel Pantoprazole Sodium 40 mg DAILY IV 02/26/25 10:00 03/06/25 10:47 40 MG Levalbuterol HCl 1.25 mg Q6HR NEB 03/02/25 18:00 03/07/25 05:52 1.25 MG Midazolam HCl 50 ml @ 1 mls/hr Q24H IV 03/03/25 16:15 03/04/25 06:38 6 MLS/HR Fentanyl Citrate 250 ml @ 2.5 mls/hr Q24H IV 03/03/25 16:15 03/06/25 22:32 10 MLS/HR Cefepime HCl 50 ml @ 12.5 mls/hr HS IV 03/03/25 22:00 03/06/25 22:19 12.5 MLS/HR Propofol 100 ml @ 4.326 mls/ hr Q23H7M IV 03/04/25 11:45 03/07/25 07:50 12.978 MLS/HR Norepinephrine Bitartrate 250 ml @ 3.75 mls/hr Q24H IV 03/04/25 12:45 03/07/25 02:59 22.5 MLS/HR Epoetin Javan-epbx 10,000 unit 2XW SC 03/04/25 21:00 03/04/25 20:50 10,000 UNIT Enoxaparin Sodium 140 mg DAILY SC 03/05/25 10:00 UNV Diagnostic Test (Pha) 1 strip Q6HR 03/05/25 12:00 03/07/25 06:46 1 STRIP Insulin Human Regular Q6HR SC 03/05/25 12:00 03/06/25 05:38 3 UNITS Dextrose 50 ml UD PRN IV 03/05/25 07:30 Sodium Chloride 10 ml QSHIFT@10,22 IV 03/06/25 10:00 03/06/25 22:13 10 ML Linezolid 300 ml @ 150 mls/hr Q12HR IV 03/06/25 10:00 Hold 03/06/25 22:20 150 MLS/HR Norepinephrine Bitartrate 32 mg/ Sodium Chloride 250 ml @ 0.938 mls/ hr Q24H IV 03/07/25 09:00 Vasopressin 20 units/Sodium Chloride 100 ml @ 9 mls/hr Q11H7M IV 03/07/25 09:00 Metoclopramide HCl 5 mg Q8HPRN IV 03/07/25 14:00 UNV laboratory and microbiology Laboratory Tests 03/07/25 03:25 Test 03/07/25 03:25 Range/Units Serum Glucose 153 H 74-106 mg/dL Microbiology Date/Time Source Procedure Growth Status 03/04/25 10:05 Voided Urine Urine Culture - Final Enterococcus faecium - VRE Complete 03/03/25 16:40 Sputum Gram Stain - Final Complete 03/03/25 16:40 Sputum Respiratory Culture - Final Complete 02/21/25 11:22 Blood Blood Culture - Final NO GROWTH AFTER 5 DAYS OF INCUBATION. Complete 02/21/25 09:30 Nose MRSA Screen - Final Complete Problem List/Assessment/Plan Problem List/Assessment/Plan INTUBATED HEMODYNAMICALLY LABILE ABD SOFT DISTENDED BM + COLONIC DECOMPRESSION PER GI WITH POSSIBLE COLONOSCOPY HIGH RISK FOR SURGERY Plan discussed with: Other Dietary Evaluation Review Comments: 1. Disagree with current TF orders, change to Vital HP @ 40 ml/hr continuously 2. Provide free water flushes of 30 ml Q8 hrs (90 ml total); adjust PRN 3. Monitor BMP/lytes and replete to WNL 4. When appropriate for oral diet, recommend Cardiac diet as tolerated TF Provision: TF at goal to provide 960 ml total volume, 960 kcal (+958 kcal via propofol = 1918 kcal), 84 gm pro, 0 gm fiber, 107 gm CHO, 801 ml H20 (meets 100% est. kcal needs, 100% est. pro needs) Expected Outcomes/Goals: Improved nutritional status, hemodynamic stability. DONNA SAHA MD Mar 07, 2025 10:48
[2025-03-07] MEDS: NOREPINEPHRINE BITARTRATE 32 MG in SODIUM CHL 0.9% 218 ML IV SCH (11:11)
[2025-03-07] MEDS: VASOPRESSIN 20 UNITS in SODIUM CHL 0.9% 99 ML IV SCH (11:11)
--- NOTE | 2025-03-07 13:31 | DVHPN2 ---
Progress Note Date Seen: Mar 07, 2025 Medical Necessity Reason Pt with a Central, PICC or Fol: Yes The following are medically ne: Serrano Catheter Reason for serrano catheter: Strict I&O Subjective Review of Systems: RESPIRATORY:Abnormal Other Systems: Patient seen and examined by myself today in follow-up Patient remained intubated on ventilator Objective vital signs Vital Sign Date Time Temp Pulse Resp B/P (MAP) Pulse Ox O2 Delivery O2 Flow Rate FiO2 03/07/25 11:39 119 26 118/50 (72) 96 30 03/07/25 06:00 Mechanical Ventilator+ 03/07/25 00:00 97.9 97.9 Total Intake and Output 03/06/25 03/06/25 03/07/25 15:00 23:00 07:00 Intake Total 502.574 ml 428.824 ml 553.814 ml Output Total 0 ml 0 ml Balance 502.574 ml 428.824 ml 553.814 ml medications Current Medications Medications Dose Ordered Sig/Adolfo Route Start Time Stop Time Status Last Admin Dose Admin Nitroglycerin 0.4 mg Q5MINP PRN SL 02/19/25 15:15 Ipratropium [place] 0.5 mg Q6HR NEB 02/19/25 18:00 03/07/25 11:39 0.5 MG Dextrose 50 ml UD PRN IV 02/22/25 07:15 Cancel Pantoprazole Sodium 40 mg DAILY IV 02/26/25 10:00 03/07/25 11:08 40 MG Levalbuterol HCl 1.25 mg Q6HR NEB 03/02/25 18:00 03/07/25 11:39 1.25 MG Midazolam HCl 50 ml @ 1 mls/hr Q24H IV 03/03/25 16:15 03/04/25 06:38 6 MLS/HR Fentanyl Citrate 250 ml @ 2.5 mls/hr Q24H IV 03/03/25 16:15 03/06/25 22:32 10 MLS/HR Cefepime HCl 50 ml @ 12.5 mls/hr HS IV 03/03/25 22:00 03/06/25 22:19 12.5 MLS/HR Propofol 100 ml @ 4.326 mls/ hr Q23H7M IV 03/04/25 11:45 03/07/25 07:50 12.978 MLS/HR Norepinephrine Bitartrate 250 ml @ 3.75 mls/hr Q24H IV 03/04/25 12:45 03/07/25 02:59 22.5 MLS/HR Epoetin Javan-epbx 10,000 unit 2XW SC 03/04/25 21:00 03/04/25 20:50 10,000 UNIT Enoxaparin Sodium 140 mg DAILY SC 03/05/25 10:00 UNV Diagnostic Test (Pha) 1 strip Q6HR 03/05/25 12:00 03/07/25 11:15 1 STRIP Insulin Human Regular Q6HR SC 03/05/25 12:00 03/06/25 05:38 3 UNITS Dextrose 50 ml UD PRN IV 03/05/25 07:30 Sodium Chloride 10 ml QSHIFT@10,22 IV 03/06/25 10:00 03/07/25 11:08 10 ML Linezolid 300 ml @ 150 mls/hr Q12HR IV 03/06/25 10:00 Hold 03/06/25 22:20 150 MLS/HR Norepinephrine Bitartrate 32 mg/ Sodium Chloride 250 ml @ 0.938 mls/ hr Q24H IV 03/07/25 09:00 03/07/25 11:11 11.25 MLS/HR Vasopressin 20 units/Sodium Chloride 100 ml @ 9 mls/hr Q11H7M IV 03/07/25 09:00 03/07/25 11:11 9 MLS/HR Metoclopramide HCl 5 mg Q8HPRN IV 03/07/25 14:00 Examination: LUNGS:Normal, CVS:Normal, MSK:Abnormal laboratory and microbiology Laboratory Tests 03/07/25 03:25 Test 03/07/25 03:25 Range/Units Serum Glucose 153 H 74-106 mg/dL Microbiology Date/Time Source Procedure Growth Status 03/06/25 11:25 Blood Blood Culture - Preliminary NO GROWTH AFTER 24 HOURS OF INCUBATION. Resulted 03/04/25 10:05 Voided Urine Urine Culture - Final Enterococcus faecium - VRE Complete 03/03/25 16:40 Sputum Gram Stain - Final Complete 03/03/25 16:40 Sputum Respiratory Culture - Final Complete 02/21/25 09:30 Nose MRSA Screen - Final Complete Problem List/Assessment/Plan Problem List/Assessment/Plan Acute kidney injury superimposed Chronic Kidney Disease stage III secondary to ATN, FeNa > 2%, anuric/oliguric requiring intermittent hemodialysis Acute hypoxic respiratory failure, intubated on ventilator Atrial fibrillation with RVR Anemia Vaginal bleeding COPD Congestive heart failure Pulmonary hypertension Ileus Leukocytosis Septic shock Iron deficiency Recommendations Hemodialysis tomorrow Epogen 62849 subQ 3 times weekly Albumin 25% p.r.n. hemodialysis Serrano catheter Strict I&Os IV Venofer NGT to intermittent suction Sepsis workup per primary team Noted plan for tracheostomy We will continue to follow Plan discussed with: Other (Nurse) My Orders My Orders Orders - KATJA ZIMMERMAN MD Procedure Category Date Status Time Hemodialysis Orders ORDERS 03/08/25 Verified 07:00 Dialysis Nursing THEO 03/08/25 Verified Message 07:00 Heparin Sodium PHA 03/08/25 Verified (Porcine) 07:00 Sodium Chloride 0.9% PHA 03/08/25 Verified 07:00 Document Fluid Input THEO 03/08/25 Verified And Outpu 07:00 Retacrit 10,000unit PHA 03/08/25 Verified Sc Xone 21:00 Iron Ivpb PHA 03/08/25 Verified 12:00 Dietary Evaluation Review Comments: 1. Disagree with current TF orders, change to Vital HP @ 40 ml/hr continuously 2. Provide free water flushes of 30 ml Q8 hrs (90 ml total); adjust PRN 3. Monitor BMP/lytes and replete to WNL 4. When appropriate for oral diet, recommend Cardiac diet as tolerated TF Provision: TF at goal to provide 960 ml total volume, 960 kcal (+958 kcal via propofol = 1918 kcal), 84 gm pro, 0 gm fiber, 107 gm CHO, 801 ml H20 (meets 100% est. kcal needs, 100% est. pro needs) Expected Outcomes/Goals: Improved nutritional status, hemodynamic stability. KATJA ZIMMERMAN MD Mar 07, 2025 13:31
[2025-03-07] MEDS ORDERED: Nepro With Carb Steady 1 Liter Bottle GT SCH (14:15)
[2025-03-07] MEDS: GOLYTELY 4L KIT PO ONE (14:30)
[2025-03-07] MEDS: METOCLOPRAMIDE HCL 5MG/ml INJ 2ml VIAL IV SCH (14:31)
[2025-03-07] MEDS: IRON SUCROSE COMPLEX 110 ML IV SCH (14:32)
[2025-03-08] VITALS (78 sets, daily range): BP systolic 82–144; BP diastolic 40–76; PULSE 65–121; RESP 17–28; TEMP 97.5–99.1; O2SAT 87–100
[2025-03-08 04:30] LABS: Basophils # (auto) 0 10 ^3/uL (0-0.2); Eosinophils # (auto) 0.1 10 ^3/uL (0-0.8); Hemoglobin 7.2 g/dL (12.2-16.2); Neutrophils % (auto) 91.2 % (37.0-80.0); Platelet Count (auto) 62 10^3/uL (140-450); White Blood Cell 14.1 10^3/uL (4.4-10.8)
[2025-03-08 04:33] LABS: Basophils % (auto) 0.2 % (0.0-2.0); Eosinophils % (auto) 0.4 % (0.0-7.0); Hematocrit 21.6 % (36.0-46.0); Lymphocytes # (auto) 0.3 10 ^3/uL (0.4-5.4); Lymphocytes % (auto) 2.5 % (10.0-50.0); Mean Corpuscular Hemoglobin 31.1 pg (28.0-32.0); Mean Corpuscular Hgb Conc. 33.3 g/dL (32.0-36.0); Mean Corpuscular Volume 93.4 fL (80.0-100.0); Monocytes # (auto) 0.8 10 ^3/uL (0-1.3); Monocytes % (auto) 5.7 % (0.0-12.0); Neutrophils # (auto) 12.9 10 ^3/uL (1.6-8.6); Red Blood Cells 2.32 10^6/uL (4.0-5.20); Red Cell Distribution Width 20.5 % (11.8-14.3)
[2025-03-08 04:53] LABS: Alanine Aminotransferase 18 U/L (7-40); Albumin 3.4 g/dL (3.2-4.8); Alkaline Phosphatase 100 U/L (46-116); Anion Gap 13 (5-15); Calcium 9.6 mg/dL (8.7-10.4); Carbon Dioxide 24 mmol/L (20-31); Magnesium 2.3 mg/dL (1.6-2.6)
[2025-03-08 04:54] LABS: Bilirubin, Total 0.8 mg/dL (0.2-1.0)
[2025-03-08 05:00] LABS: Aspartate Aminotransferase < 8 U/L (13-40); Blood Urea Nitrogen 62 mg/dL (9-23); Chloride 93 mmol/L (98-107); Glucose 160 mg/dL (74-106); Sodium 130 mmol/L (136-145); Total Protein 5.4 g/dL (5.7-8.2)
--- NOTE | 2025-03-08 05:31 | DVH ---
EXAM: XR Chest, 1 View CLINICAL INDICATION: sob TECHNIQUE: Frontal view of the chest. COMPARISON: XY CHEST PORTABLE on DOS: 03/07/25, XY CHEST PORTABLE on DOS: 03/06/25, XY CHEST PORTABLE on DOS: 03/06/25, XY CHEST PORTABLE on DOS: 03/05/25, XY CHEST XRAY 1 VIEW on DOS: 03/04/25 FINDINGS: LUNGS AND PLEURAL SPACES: See below. HEART: Cardiomegaly with mild congestion. MEDIASTINUM: Unremarkable. Normal mediastinal contour. BONES/JOINTS: Unremarkable. No acute fracture. TUBES, LINES AND DEVICES: Right internal jugular central venous catheter tip in the superior vena c esdras. The endotracheal tube (ETT) is in satisfactory position. Enteric tube tip cannot be seen but i s below the diaphragm. OTHER FINDINGS: . . .. IMPRESSION: Cardiomegaly with mild congestion.
[2025-03-08 06:43] LABS: Base Excess 0.1 mmol/L (-2.0-3.0)
[2025-03-08 06:54] LABS: Anisocytosis Slight
[2025-03-08 06:55] LABS: Platelet Estimate Decreased; Stomatocytes Few
[2025-03-08] MEDS: PHYTONADIONE (VIT K)10 MG/ML 1ML VIAL SUBCUT ONE (09:35)
--- NOTE | 2025-03-08 10:56 | DVHPN2 ---
Progress Note Date Seen: Mar 08, 2025 Medical Necessity Reason Pt with a Central, PICC or Fol: Yes The following are medically ne: Serrano Catheter Reason for serrano catheter: Strict I&O Subjective Review of Systems: RESPIRATORY:Abnormal Other Systems: Patient seen and examined by myself today in follow-up, patient remained intubated on ventilator Patient examined hemodialysis, blood pressure stable Objective vital signs Vital Sign Date Time Temp Pulse Resp B/P (MAP) Pulse Ox O2 Delivery O2 Flow Rate FiO2 03/08/25 10:27 30 03/08/25 10:27 103 03/08/25 10:27 26 96 Mechanical Ventilator+ 03/08/25 09:42 93/43 (60) 03/08/25 06:45 98.1 208.6 Total Intake and Output 03/07/25 03/07/25 03/08/25 15:00 23:00 07:00 Intake Total 519.200 ml 900.662 ml 887.284 ml Output Total 0 ml 25 ml Balance 519.200 ml 900.662 ml 862.284 ml medications Current Medications Medications Dose Ordered Sig/Adolfo Route Start Time Stop Time Status Last Admin Dose Admin Nitroglycerin 0.4 mg Q5MINP PRN SL 02/19/25 15:15 Ipratropium [place] 0.5 mg Q6HR NEB 02/19/25 18:00 03/08/25 05:52 0.5 MG Dextrose 50 ml UD PRN IV 02/22/25 07:15 Cancel Pantoprazole Sodium 40 mg DAILY IV 02/26/25 10:00 03/08/25 09:34 40 MG Levalbuterol HCl 1.25 mg Q6HR NEB 03/02/25 18:00 03/08/25 05:52 1.25 MG Midazolam HCl 50 ml @ 1 mls/hr Q24H IV 03/03/25 16:15 03/04/25 06:38 6 MLS/HR Fentanyl Citrate 250 ml @ 2.5 mls/hr Q24H IV 03/03/25 16:15 03/08/25 01:47 10 MLS/HR Cefepime HCl 50 ml @ 12.5 mls/hr HS IV 03/03/25 22:00 03/07/25 21:00 12.5 MLS/HR Propofol 100 ml @ 4.326 mls/ hr Q23H7M IV 03/04/25 11:45 03/08/25 01:46 12.978 MLS/HR Epoetin Javan-epbx 10,000 unit 2XW SC 03/04/25 21:00 03/07/25 16:03 10,000 UNIT Enoxaparin Sodium 140 mg DAILY SC 03/05/25 10:00 UNV Diagnostic Test (Pha) 1 strip Q6HR 03/05/25 12:00 03/08/25 06:19 1 STRIP Insulin Human Regular Q6HR SC 03/05/25 12:00 03/08/25 06:18 2 UNITS Dextrose 50 ml UD PRN IV 03/05/25 07:30 Sodium Chloride 10 ml QSHIFT@10,22 IV 03/06/25 10:00 03/08/25 09:35 10 ML Norepinephrine Bitartrate 32 mg/ Sodium Chloride 250 ml @ 0.938 mls/ hr Q24H IV 03/07/25 09:00 03/07/25 11:11 11.25 MLS/HR Vasopressin 20 units/Sodium Chloride 100 ml @ 9 mls/hr Q11H7M IV 03/07/25 09:00 03/08/25 05:21 9 MLS/HR Metoclopramide HCl 5 mg Q8HPRN IV 03/07/25 14:00 03/08/25 05:21 5 MG Iron Sucrose 110 ml @ 110 mls/hr DAILY@1200 IV 03/07/25 13:43 03/11/25 12:59 03/07/25 14:32 110 MLS/HR Enteral Nutritional Formula 1,000 ml 30ML/HR GT 03/07/25 14:15 Examination: LUNGS:Normal, CVS:Normal, MSK:Abnormal laboratory and microbiology Laboratory Tests 03/08/25 03:30 Test 03/08/25 03:30 Range/Units Serum Glucose 160 H 74-106 mg/dL Microbiology Date/Time Source Procedure Growth Status 03/06/25 11:25 Blood Blood Culture - Preliminary NO GROWTH AFTER 24 HOURS OF INCUBATION. Resulted 03/04/25 10:05 Voided Urine Urine Culture - Final Enterococcus faecium - VRE Complete 03/03/25 16:40 Sputum Gram Stain - Final Complete 03/03/25 16:40 Sputum Respiratory Culture - Final Complete 02/21/25 09:30 Nose MRSA Screen - Final Complete Problem List/Assessment/Plan Problem List/Assessment/Plan Acute kidney injury superimposed Chronic Kidney Disease stage III secondary to ATN, FeNa > 2%, anuric/oliguric requiring intermittent hemodialysis Acute hypoxic respiratory failure, intubated on ventilator Atrial fibrillation with RVR Anemia Vaginal bleeding COPD Congestive heart failure Pulmonary hypertension Ileus Leukocytosis Septic shock Iron deficiency Recommendations Continue with UF to 3 L as tolerated Epogen 34913 subQ 3 times weekly Albumin 25% p.r.n. hemodialysis Transfuse 1 unit of packed red blood cell with hemodialysis Serrano catheter Strict I&Os IV Venofer NGT to intermittent suction Sepsis workup per primary team Noted plan for tracheostomy We will continue to follow Plan discussed with: Daughter, Other My Orders My Orders Orders - KATJA ZIMMERMAN MD Procedure Category Date Status Time Hemodialysis Orders ORDERS 03/08/25 Transmitted 07:00 Dialysis Nursing THEO 03/08/25 In Process Message 07:00 Document Fluid Input THEO 03/08/25 In Process And Outpu 07:00 Epoetin Javan-Epbx PHA 03/08/25 In Process (Retacrit) 21:00 Iron Sucrose Complex PHA 03/07/25 In Process (Venofer) 13:43 Dietary Evaluation Review Comments: 1. Disagree with current TF orders, change to Vital HP @ 40 ml/hr continuously 2. Provide free water flushes of 30 ml Q8 hrs (90 ml total); adjust PRN 3. Monitor BMP/lytes and replete to WNL 4. When appropriate for oral diet, recommend Cardiac diet as tolerated TF Provision: TF at goal to provide 960 ml total volume, 960 kcal (+958 kcal via propofol = 1918 kcal), 84 gm pro, 0 gm fiber, 107 gm CHO, 801 ml H20 (meets 100% est. kcal needs, 100% est. pro needs) Expected Outcomes/Goals: Improved nutritional status, hemodynamic stability. KATJA ZIMMERMAN MD Mar 08, 2025 10:56
--- NOTE | 2025-03-08 13:24 | DVHPNRES ---
Progress Note Date Seen: Mar 08, 2025 Resident Creating Document: NENA ZHOU RESIDENT Medical Necessity Reason Pt with a Central, PICC or Fol: Yes The following are medically ne: Serrano Catheter Reason for serrano catheter: Strict I&O Subjective Review of Systems Patient was seen and examined at bedside. She remains on mechanical ventilator, FiO2 was 35%. Peep 5. Respiratory rate still at 26. Patient on Levophed at 10, she is on fentanyl and Versed. Measured intraabdominal pressure through intravesical catheter, currently at 5mmhg, coming down. Trach on tuesday Objective vital signs Vital Sign Date Time Temp Pulse Resp B/P (MAP) Pulse Ox O2 Delivery O2 Flow Rate FiO2 03/08/25 11:36 81 26 119/59 (79) 98 30 03/08/25 11:34 Mechanical Ventilator+ 03/08/25 06:45 98.1 208.6 Total Intake and Output 03/07/25 03/07/25 03/08/25 15:00 23:00 07:00 Intake Total 519.200 ml 900.662 ml 924.887 ml Output Total 0 ml 25 ml Balance 519.200 ml 900.662 ml 899.887 ml medications Current Medications Medications Dose Ordered Sig/Adolfo Route Start Time Stop Time Status Last Admin Dose Admin Nitroglycerin 0.4 mg Q5MINP PRN SL 02/19/25 15:15 Ipratropium [place] 0.5 mg Q6HR NEB 02/19/25 18:00 03/08/25 11:36 0.5 MG Dextrose 50 ml UD PRN IV 02/22/25 07:15 Cancel Pantoprazole Sodium 40 mg DAILY IV 02/26/25 10:00 03/08/25 09:34 40 MG Levalbuterol HCl 1.25 mg Q6HR NEB 03/02/25 18:00 03/08/25 11:36 1.25 MG Midazolam HCl 50 ml @ 1 mls/hr Q24H IV 03/03/25 16:15 03/04/25 06:38 6 MLS/HR Fentanyl Citrate 250 ml @ 2.5 mls/hr Q24H IV 03/03/25 16:15 03/08/25 01:47 10 MLS/HR Cefepime HCl 50 ml @ 12.5 mls/hr HS IV 03/03/25 22:00 03/07/25 21:00 12.5 MLS/HR Propofol 100 ml @ 4.326 mls/ hr Q23H7M IV 03/04/25 11:45 03/08/25 11:29 8.652 MLS/HR Epoetin Javan-epbx 10,000 unit 2XW SC 03/04/25 21:00 03/07/25 16:03 10,000 UNIT Enoxaparin Sodium 140 mg DAILY SC 03/05/25 10:00 UNV Diagnostic Test (Pha) 1 strip Q6HR 03/05/25 12:00 03/08/25 06:19 1 STRIP Insulin Human Regular Q6HR SC 03/05/25 12:00 03/08/25 06:18 2 UNITS Dextrose 50 ml UD PRN IV 03/05/25 07:30 Sodium Chloride 10 ml QSHIFT@10,22 IV 03/06/25 10:00 03/08/25 09:35 10 ML Norepinephrine Bitartrate 32 mg/ Sodium Chloride 250 ml @ 0.938 mls/ hr Q24H IV 03/07/25 09:00 03/07/25 11:11 11.25 MLS/HR Vasopressin 20 units/Sodium Chloride 100 ml @ 9 mls/hr Q11H7M IV 03/07/25 09:00 03/08/25 05:21 9 MLS/HR Metoclopramide HCl 5 mg Q8HPRN IV 03/07/25 14:00 03/08/25 05:21 5 MG Iron Sucrose 110 ml @ 110 mls/hr DAILY@1200 IV 03/07/25 13:43 03/11/25 12:59 03/08/25 11:31 110 MLS/HR Enteral Nutritional Formula 1,000 ml 30ML/HR GT 03/07/25 14:15 Examination Physical examination as below: General: Mechanically ventilated, intubated HEENT: Head is normocephalic and atraumatic. Pupils are equal, round, and reactive to light. Neck: Supple with no cervical lymphadenopathy. Heart: Regular rate without murmur, rub, or gallop. Lungs: Mild bilateral diffuse crackles and scattered wheezing Abdomen: No external sign of injury. Bowel sounds are present. Abdomen is soft, nontender. Distended Extremities: Strong peripheral pulses. There is no clubbing, no cyanosis, and no edema. Skin: No rash. Neurologic: Sedated laboratory and microbiology Laboratory Tests 03/08/25 03:30 Test 03/08/25 03:30 Range/Units Serum Glucose 160 H 74-106 mg/dL Microbiology Date/Time Source Procedure Growth Status 03/07/25 20:36 Urine - [place] Urine Culture - Preliminary Resulted 03/06/25 11:25 Blood Blood Culture - Preliminary NO GROWTH AFTER 48 HOURS OF INCUBATION. Resulted 03/03/25 16:40 Sputum Gram Stain - Final Complete 03/03/25 16:40 Sputum Respiratory Culture - Final Complete 02/21/25 09:30 Nose MRSA Screen - Final Complete Labs and/or images reviewed: Labs reviewed by me, Image(s) reviewed by me Problem List/Assessment/Plan Problem List/Assessment/Plan Neurology #Metabolic encephalopathy due to sepsis On fentanyl and propofol Cardiovascular #Acute on chronic diastolic CHF with RV failure #Pulmonary hypertension, class 2 vs 3, moderate-severe #NSTEMI likely type 2 #Atrial fibrillation with rapid ventricular rate #Tricuspid regurgitation, [id number] degree #Pericardial effusion, resolved On hemodialysis as needed Cardiology following Held Lovenox 1mg/kg qd due to thrombocytopenia Pulmonology #Acute on chronic hypoxic and hypercarbic respiratory failure, on mechanical ventilator #Obstructive sleep apnea #Obesity hypoventilation syndrome #Respiratory acidosis, compensated #Pneumonia, gram (+) vs gram (-), atypicals #COPD exacerbation #Mucous plugs s/p bronch 03/03/25 On MV: FIO2: 35%. PEEP: 6. RR: 26. TV: 400ml, will continue waning down DuoNebs q6hrs Cefepime IV Tracheostomy on tuesday by dr. forman Nephrology #AN, likely ATN Monitor, continue HD Nephrology following Endocrinology #Morbid obesity Gastroenterology #Bowel distention, possible SBO, ileus #Constipation Reviewed KUB, cannot fit CAT scan NG to LIS for decompression Tap water enema Consulted GI for decompression, performed on 03/07/25 Performed rectal examination, no hard stools. Golytely yesterday 03/07/25 intrabdominal pressure down from 19-13 to 5 today 03/08/25 Held tube feeding: Glucerna, may restart tomorrow #Transaminitis, likely due to sepsis Monitor, trending down Hematology and Oncology #Thrombocytopenia likely due to sepsis Improving #Anemia normocytic normochromic Monitor, currently stable Infectious Disease #Septic shock due to Pneumonia, gram (+) vs gram (-), atypicals #UTI, complicated, growing VRE possible colonization repeat urine culture Dermatology X Gynecology #Vaginal bleeding Consulted SCRUB TECH, bleeding stopped Pelvic US: Unable to visualize uterus and both ovaries. DVT ppx Lovenox PUD ppx Protonix Drips Levo 10 Vasopressin Fent Propofol Lines TLC left IJ 02/20/25, ordered PICC line 03/06/25 PRITI right, non-tunneled dialysis 03/03/25 ReIntubated 03/03/25 Intubated 02/20, extubated 03/01 Updated family member on patient's current status. Had a discussion with spouse about tracheostomy, he wants to purse it. Goals of care were discussed for over 30 minutes. FULL CODE. Critical care time spent excluding procedures was 83 mins Case was discussed with Dr. Hood Plan discussed with: Spouse, Other (RN) My Orders My Orders Orders - NENA ZHOU RESIDENT Procedure Category Date Status Time Urine Bacterial MINA 03/07/25 In Process Culture 20:35 Chest Portable XY 03/08/25 Resulted 04:00 Abg W/ Co-Ox RT 03/08/25 Logged 04:00 Obtain Consent For: ORDERS 03/08/25 Transmitted 07:52 Type And Screen BBK 03/08/25 In Process 07:52 Dietary Evaluation Review Comments: 1. Disagree with current TF orders, change to Vital HP @ 40 ml/hr continuously 2. Provide free water flushes of 30 ml Q8 hrs (90 ml total); adjust PRN 3. Monitor BMP/lytes and replete to WNL 4. When appropriate for oral diet, recommend Cardiac diet as tolerated TF Provision: TF at goal to provide 960 ml total volume, 960 kcal (+958 kcal via propofol = 1918 kcal), 84 gm pro, 0 gm fiber, 107 gm CHO, 801 ml H20 (meets 100% est. kcal needs, 100% est. pro needs) Expected Outcomes/Goals: Improved nutritional status, hemodynamic stability. NENA ZHOU RESIDENT Mar 08, 2025 13:24
[2025-03-08] MEDS ORDERED: ALBUMIN 25% 50 ML IV PRN (14:30)
--- NOTE | 2025-03-08 20:07 | DVHPN2 ---
Progress Note - Dictate Date Seen: Mar 08, 2025 Medical Necessity Reason Pt with a Central, PICC or Fol: Yes The following are medically ne: Serrano Catheter Reason for serrano catheter: Strict I&O Subjective Patient is seen at bedside She has just completed dialysis Patient had a large bowel movement today She has received about a half a gal of GoLYTELY Abdomen is softer and less distended Intra-abdominal pressure is down to five vital signs Vital Sign Date Time Temp Pulse Resp B/P (MAP) Pulse Ox O2 Delivery O2 Flow Rate FiO2 03/08/25 19:56 97 26 98 Mechanical Ventilator+ 30 30 03/08/25 19:40 116/50 03/08/25 16:09 97.5 97.5 Total Intake and Output 03/07/25 03/07/25 03/08/25 15:00 23:00 07:00 Intake Total 519.200 ml 900.662 ml 924.887 ml Output Total 0 ml 25 ml Balance 519.200 ml 900.662 ml 899.887 ml medications Current Medications Medications Dose Ordered Sig/Adolfo Route Start Time Stop Time Status Last Admin Dose Admin Nitroglycerin 0.4 mg Q5MINP PRN SL 02/19/25 15:15 Ipratropium [place] 0.5 mg Q6HR NEB 02/19/25 18:00 03/08/25 18:41 0.5 MG Dextrose 50 ml UD PRN IV 02/22/25 07:15 Cancel Pantoprazole Sodium 40 mg DAILY IV 02/26/25 10:00 03/08/25 09:34 40 MG Levalbuterol HCl 1.25 mg Q6HR NEB 03/02/25 18:00 03/08/25 18:40 1.25 MG Midazolam HCl 50 ml @ 1 mls/hr Q24H IV 03/03/25 16:15 03/04/25 06:38 6 MLS/HR Fentanyl Citrate 250 ml @ 2.5 mls/hr Q24H IV 03/03/25 16:15 03/08/25 01:47 10 MLS/HR Cefepime HCl 50 ml @ 12.5 mls/hr HS IV 03/03/25 22:00 03/07/25 21:00 12.5 MLS/HR Propofol 100 ml @ 4.326 mls/ hr Q23H7M IV 03/04/25 11:45 03/08/25 19:40 12.978 MLS/HR Epoetin Javan-epbx 10,000 unit 2XW SC 03/04/25 21:00 03/07/25 16:03 10,000 UNIT Enoxaparin Sodium 140 mg DAILY SC 03/05/25 10:00 UNV Diagnostic Test (Pha) 1 strip Q6HR 03/05/25 12:00 03/08/25 18:00 1 STRIP Insulin Human Regular Q6HR SC 03/05/25 12:00 03/08/25 06:18 2 UNITS Dextrose 50 ml UD PRN IV 03/05/25 07:30 Sodium Chloride 10 ml QSHIFT@10,22 IV 03/06/25 10:00 03/08/25 09:35 10 ML Norepinephrine Bitartrate 32 mg/ Sodium Chloride 250 ml @ 0.938 mls/ hr Q24H IV 03/07/25 09:00 03/07/25 11:11 11.25 MLS/HR Vasopressin 20 units/Sodium Chloride 100 ml @ 9 mls/hr Q11H7M IV 03/07/25 09:00 03/08/25 05:21 9 MLS/HR Metoclopramide HCl 5 mg Q8HPRN IV 03/07/25 14:00 03/08/25 14:11 5 MG Iron Sucrose 110 ml @ 110 mls/hr DAILY@1200 IV 03/07/25 13:43 03/11/25 12:59 03/08/25 11:31 110 MLS/HR Enteral Nutritional Formula 1,000 ml 30ML/HR GT 03/07/25 14:15 Albumin Human 50 ml @ 100 mls/hr NERIQUE PRN IV 03/08/25 14:30 03/13/25 14:29 Cancel objective VITAL SIGNS: She is intubated, morbidly obese. GENERAL: CRISTIANE No cyanosis or jaundice.; NG tube output is minimal and bilious clear NECK: Supple, nontender with no thyromegaly, lymphadenopathy. CHEST AND LUNGS: Relatively clear.decreased BS at bases ABDOMEN: soft less Distended, obese; hypoactive bowel sounds RECTAL: Reported no fecal impaction and no stool in the vault laboratory and microbiology Laboratory Tests 03/08/25 03:30 Test 03/08/25 03:30 Range/Units Serum Glucose 160 H 74-106 mg/dL Problems(with codes): (1) Gaseous distention of intestine determined by X-ray (2) Gaseous abdominal distention (3) Morbid obesity Prognosis Plan Continue to gently and slowly give her the GoLYTELY until it is finished We will plan on starting Glucerna or tube feedings tomorrow Overall prognosis remains guarded due to multiorgan involvement and morbid obesity Dietary Evaluation Review Comments: 1. Disagree with current TF orders, change to Vital HP @ 40 ml/hr continuously 2. Provide free water flushes of 30 ml Q8 hrs (90 ml total); adjust PRN 3. Monitor BMP/lytes and replete to WNL 4. When appropriate for oral diet, recommend Cardiac diet as tolerated TF Provision: TF at goal to provide 960 ml total volume, 960 kcal (+958 kcal via propofol = 1918 kcal), 84 gm pro, 0 gm fiber, 107 gm CHO, 801 ml H20 (meets 100% est. kcal needs, 100% est. pro needs) Expected Outcomes/Goals: Improved nutritional status, hemodynamic stability. Plan discussed with: Other (ICU Nurse) ROLAN SAHA MD Mar 08, 2025 20:07
[2025-03-08] MEDS: EPOETIN ALFA-EPBX 10,000 UNIT/1ML VIAL SC ONE (21:03)
[2025-03-09] VITALS (111 sets, daily range): BP systolic 83–139; BP diastolic 40–73; PULSE 76–135; RESP 25–27; TEMP 98.1–98.6; O2SAT 91–100
[2025-03-09 04:21] LABS: Basophils # (auto) 0 10 ^3/uL (0-0.2); Eosinophils # (auto) 0.2 10 ^3/uL (0-0.8); Hemoglobin 8.3 g/dL (12.2-16.2); Lymphocytes # (auto) 0.4 10 ^3/uL (0.4-5.4); Monocytes # (auto) 0.8 10 ^3/uL (0-1.3)
[2025-03-09 04:24] LABS: Basophils % (auto) 0.1 % (0.0-2.0); Hematocrit 24.6 % (36.0-46.0); Lymphocytes % (auto) 4.1 % (10.0-50.0); Mean Corpuscular Hemoglobin 30.9 pg (28.0-32.0); Mean Corpuscular Hgb Conc. 33.8 g/dL (32.0-36.0); Mean Corpuscular Volume 91.3 fL (80.0-100.0); Monocytes % (auto) 8.8 % (0.0-12.0); Neutrophils # (auto) 7.8 10 ^3/uL (1.6-8.6); Nucleated Red Blood Cells % 0.1 %; Platelet Count (auto) 65 10^3/uL (140-450); Red Blood Cells 2.69 10^6/uL (4.0-5.20); Red Cell Distribution Width 20.4 % (11.8-14.3); White Blood Cell 9.2 10^3/uL (4.4-10.8)
[2025-03-09 04:39] LABS: Alanine Aminotransferase 15 U/L (7-40); Albumin 3.4 g/dL (3.2-4.8); Alkaline Phosphatase 101 U/L (46-116); Anion Gap 13 (5-15); BUN/Creatinine Ratio 16.5 (10.0-20.0); Calcium 9.1 mg/dL (8.7-10.4); Carbon Dioxide 28 mmol/L (20-31); Magnesium 2.2 mg/dL (1.6-2.6); Potassium 3.8 mmol/L (3.5-5.1); Sodium 138 mmol/L (136-145)
[2025-03-09 04:40] LABS: Bilirubin, Total 0.7 mg/dL (0.2-1.0)
[2025-03-09 04:42] LABS: Aspartate Aminotransferase < 8 U/L (13-40); Blood Urea Nitrogen 38 mg/dL (9-23); Chloride 97 mmol/L (98-107); Glucose 111 mg/dL (74-106); Total Protein 5.3 g/dL (5.7-8.2)
--- NOTE | 2025-03-09 06:38 | DVH ---
INDICATION: sob TECHNIQUE: Frontal view of the chest. COMPARISON: XY CHEST PORTABLE on DOS: 03/08/25, XY CHEST PORTABLE on DOS: 03/07/25, XY CHEST PORTABLE o n DOS: 03/06/25, XY CHEST PORTABLE on DOS: 03/06/25, XY CHEST PORTABLE on DOS: 03/05/25, XY CHEST PORTABLE on DOS: 03/08/25 FINDINGS: LUNGS AND PLEURAL SPACES: See below. HEART: Cardiomegaly with mild congestion. MEDIASTINUM: Unremarkable. Normal mediastinal contour. BONES/JOINTS: Unremarkable. No acute fracture. TUBES, LINES AND DEVICES: Right internal jugular central venous catheter tip in the superior vena c esdras. The endotracheal tube (ETT) is in satisfactory position. Enteric tube tip cannot be seen but i s below the diaphragm. IMPRESSION: Cardiomegaly with mild congestion.
[2025-03-09 06:45] LABS: Base Excess 2.7 mmol/L (-2.0-3.0)
[2025-03-09 06:51] LABS: Anisocytosis Slight; Platelet Estimate Decreased
[2025-03-09 06:52] LABS: Stomatocytes Few
[2025-03-09] MEDS: SODIUM CHL 0.9% 1000 ML BAG XX ONE ×2 (10:20→16:17)
--- NOTE | 2025-03-09 10:48 | DVHPN2 ---
Progress Note Date Seen: Mar 09, 2025 Medical Necessity Reason Pt with a Central, PICC or Fol: Yes The following are medically ne: Serrano Catheter Reason for serrano catheter: Strict I&O Subjective Review of Systems: RESPIRATORY:Abnormal Other Systems: Patient seen and examined by myself today in follow-up, patient remained intubated Objective vital signs Vital Sign Date Time Temp Pulse Resp B/P (MAP) Pulse Ox O2 Delivery O2 Flow Rate FiO2 03/09/25 09:17 104 26 130/60 (83) 98 30 03/09/25 08:45 98.1 208.6 03/09/25 07:30 Mechanical Ventilator+ Total Intake and Output 03/08/25 03/08/25 03/09/25 15:00 23:00 07:00 Intake Total 600.542 ml 313.687 ml 1843.040 ml Output Total 25 ml 75 ml Balance 600.542 ml 288.687 ml 1768.040 ml medications Current Medications Medications Dose Ordered Sig/Adolfo Route Start Time Stop Time Status Last Admin Dose Admin Nitroglycerin 0.4 mg Q5MINP PRN SL 02/19/25 15:15 Ipratropium [place] 0.5 mg Q6HR NEB 02/19/25 18:00 03/09/25 09:17 0.5 MG Dextrose 50 ml UD PRN IV 02/22/25 07:15 Cancel Pantoprazole Sodium 40 mg DAILY IV 02/26/25 10:00 03/09/25 10:20 40 MG Levalbuterol HCl 1.25 mg Q6HR NEB 03/02/25 18:00 03/09/25 09:17 1.25 MG Midazolam HCl 50 ml @ 1 mls/hr Q24H IV 03/03/25 16:15 03/04/25 06:38 6 MLS/HR Fentanyl Citrate 250 ml @ 2.5 mls/hr Q24H IV 03/03/25 16:15 03/09/25 00:54 12.5 MLS/HR Cefepime HCl 50 ml @ 12.5 mls/hr HS IV 03/03/25 22:00 03/08/25 21:03 12.5 MLS/HR Propofol 100 ml @ 4.326 mls/ hr Q23H7M IV 03/04/25 11:45 03/09/25 10:09 21.63 MLS/HR Epoetin Javan-epbx 10,000 unit 2XW SC 03/04/25 21:00 03/07/25 16:03 10,000 UNIT Enoxaparin Sodium 140 mg DAILY SC 03/05/25 10:00 UNV Diagnostic Test (Pha) 1 strip Q6HR 03/05/25 12:00 03/09/25 05:54 1 STRIP Insulin Human Regular Q6HR SC 03/05/25 12:00 03/08/25 06:18 2 UNITS Dextrose 50 ml UD PRN IV 03/05/25 07:30 Sodium Chloride 10 ml QSHIFT@10,22 IV 03/06/25 10:00 03/09/25 10:11 10 ML Norepinephrine Bitartrate 32 mg/ Sodium Chloride 250 ml @ 0.938 mls/ hr Q24H IV 03/07/25 09:00 03/09/25 00:55 5.625 MLS/HR Vasopressin 20 units/Sodium Chloride 100 ml @ 9 mls/hr Q11H7M IV 03/07/25 09:00 03/08/25 05:21 9 MLS/HR Metoclopramide HCl 5 mg Q8HPRN IV 03/07/25 14:00 03/09/25 05:18 5 MG Iron Sucrose 110 ml @ 110 mls/hr DAILY@1200 IV 03/07/25 13:43 03/11/25 12:59 03/08/25 11:31 110 MLS/HR Enteral Nutritional Formula 1,000 ml 30ML/HR GT 03/07/25 14:15 Albumin Human 50 ml @ 100 mls/hr ENRIQUE PRN IV 03/08/25 14:30 03/13/25 14:29 Cancel Examination: LUNGS:Normal, CVS:Normal, MSK:Abnormal laboratory and microbiology Laboratory Tests 03/09/25 03:58 Test 03/09/25 03:58 Range/Units Serum Glucose 111 H 74-106 mg/dL Microbiology Date/Time Source Procedure Growth Status 03/07/25 20:36 Urine - S[place] Urine Culture - Preliminary Resulted 03/06/25 11:25 Blood Blood Culture - Preliminary NO GROWTH AFTER 48 HOURS OF INCUBATION. Resulted 03/03/25 16:40 Sputum Gram Stain - Final Complete 03/03/25 16:40 Sputum Respiratory Culture - Final Complete 02/21/25 09:30 Nose MRSA Screen - Final Complete Problem List/Assessment/Plan Problem List/Assessment/Plan Acute kidney injury superimposed Chronic Kidney Disease stage III secondary to ATN, FeNa > 2%, anuric/oliguric requiring intermittent hemodialysis Acute hypoxic respiratory failure, intubated on ventilator Atrial fibrillation with RVR Anemia Vaginal bleeding COPD Congestive heart failure Pulmonary hypertension Ileus Leukocytosis Septic shock Iron deficiency Recommendations Next hemodialysis Epogen 99493 subQ 3 times weekly Albumin 25% p.r.n. hemodialysis Transfuse 1 unit of packed red blood cell with hemodialysis Serrano catheter Strict I&Os IV Venofer NGT to intermittent suction Sepsis workup per primary team Noted plan for tracheostomy We will continue to follow Plan discussed with: Spouse, Other (Nurse) My Orders My Orders Orders - KATJA ZIMMERMAN MD Procedure Category Date Status Time Hemodialysis Orders ORDERS 03/08/25 Transmitted 10:56 Dietary Evaluation Review Comments: 1. Disagree with current TF orders, change to Vital HP @ 40 ml/hr continuously 2. Provide free water flushes of 30 ml Q8 hrs (90 ml total); adjust PRN 3. Monitor BMP/lytes and replete to WNL 4. When appropriate for oral diet, recommend Cardiac diet as tolerated TF Provision: TF at goal to provide 960 ml total volume, 960 kcal (+958 kcal via propofol = 1918 kcal), 84 gm pro, 0 gm fiber, 107 gm CHO, 801 ml H20 (meets 100% est. kcal needs, 100% est. pro needs) Expected Outcomes/Goals: Improved nutritional status, hemodynamic stability. KATJA ZIMMERMAN MD Mar 09, 2025 10:48
--- NOTE | 2025-03-09 11:36 | DVHPN2 ---
Progress Note - Dictate Date Seen: Mar 09, 2025 Medical Necessity Reason Pt with a Central, PICC or Fol: Yes The following are medically ne: Serrano Catheter Reason for serrano catheter: Strict I&O Subjective Covering for Dr. Recio Patient seen and examined Overnight events reviewed vital signs Vital Sign Date Time Temp Pulse Resp B/P (MAP) Pulse Ox O2 Delivery O2 Flow Rate FiO2 03/09/25 11:00 98.4 129 26 105/45 (65) 96 209.1 03/09/25 09:30 Mechanical Ventilator+ 30 30 Total Intake and Output 03/08/25 03/08/25 03/09/25 15:00 23:00 07:00 Intake Total 600.542 ml 313.687 ml 1843.040 ml Output Total 25 ml 75 ml Balance 600.542 ml 288.687 ml 1768.040 ml medications Current Medications Medications Dose Ordered Sig/Adolfo Route Start Time Stop Time Status Last Admin Dose Admin Nitroglycerin 0.4 mg Q5MINP PRN SL 02/19/25 15:15 Ipratropium [place] 0.5 mg Q6HR NEB 02/19/25 18:00 03/09/25 09:17 0.5 MG Dextrose 50 ml UD PRN IV 02/22/25 07:15 Cancel Pantoprazole Sodium 40 mg DAILY IV 02/26/25 10:00 03/09/25 10:20 40 MG Levalbuterol HCl 1.25 mg Q6HR NEB 03/02/25 18:00 03/09/25 09:17 1.25 MG Midazolam HCl 50 ml @ 1 mls/hr Q24H IV 03/03/25 16:15 03/04/25 06:38 6 MLS/HR Fentanyl Citrate 250 ml @ 2.5 mls/hr Q24H IV 03/03/25 16:15 03/09/25 00:54 12.5 MLS/HR Cefepime HCl 50 ml @ 12.5 mls/hr HS IV 03/03/25 22:00 03/08/25 21:03 12.5 MLS/HR Propofol 100 ml @ 4.326 mls/ hr Q23H7M IV 03/04/25 11:45 03/09/25 10:09 21.63 MLS/HR Epoetin Javan-epbx 10,000 unit 2XW SC 03/04/25 21:00 03/07/25 16:03 10,000 UNIT Enoxaparin Sodium 140 mg DAILY SC 03/05/25 10:00 UNV Diagnostic Test (Pha) 1 strip Q6HR 03/05/25 12:00 03/09/25 05:54 1 STRIP Insulin Human Regular Q6HR SC 03/05/25 12:00 03/08/25 06:18 2 UNITS Dextrose 50 ml UD PRN IV 03/05/25 07:30 Sodium Chloride 10 ml QSHIFT@10,22 IV 03/06/25 10:00 03/09/25 10:11 10 ML Norepinephrine Bitartrate 32 mg/ Sodium Chloride 250 ml @ 0.938 mls/ hr Q24H IV 03/07/25 09:00 03/09/25 00:55 5.625 MLS/HR Vasopressin 20 units/Sodium Chloride 100 ml @ 9 mls/hr Q11H7M IV 03/07/25 09:00 03/08/25 05:21 9 MLS/HR Metoclopramide HCl 5 mg Q8HPRN IV 03/07/25 14:00 03/09/25 05:18 5 MG Iron Sucrose 110 ml @ 110 mls/hr DAILY@1200 IV 03/07/25 13:43 03/11/25 12:59 03/08/25 11:31 110 MLS/HR Enteral Nutritional Formula 1,000 ml 30ML/HR GT 03/07/25 14:15 Albumin Human 50 ml @ 100 mls/hr ENRIQUE PRN IV 03/08/25 14:30 03/13/25 14:29 Cancel laboratory and microbiology Laboratory Tests 03/09/25 03:58 Test 03/09/25 03:58 Range/Units Serum Glucose 111 H 74-106 mg/dL Assessment/Plan Impression Acute hypoxemic respiratory failure Morbid obesity Septic shock NSTEMI Pneumonia Patient seen and examined in ICU Events On mechanical ventilation S/p re-intubation PEEP 5, FiO2 30% Labs and imaging reviewed ABG reviewed Management Vent support Titrate to maintain sats 90% or above Sedation holiday daily If patient follows commands, proceed to weaning trial Pressure support /5, extubate when ready Continue antibiotics F/u cultures Bronchodilators Monitor renal function F/u nephrology, management deferred Monitor electrolytes Supplement as needed Pressors as needed for hemodynamic support To maintain a mean arterial pressure of 65 mmHg DVT prophylaxis Critical care time 35 minutes Dietary Evaluation Review Comments: 1. Disagree with current TF orders, change to Vital HP @ 40 ml/hr continuously 2. Provide free water flushes of 30 ml Q8 hrs (90 ml total); adjust PRN 3. Monitor BMP/lytes and replete to WNL 4. When appropriate for oral diet, recommend Cardiac diet as tolerated TF Provision: TF at goal to provide 960 ml total volume, 960 kcal (+958 kcal via propofol = 1918 kcal), 84 gm pro, 0 gm fiber, 107 gm CHO, 801 ml H20 (meets 100% est. kcal needs, 100% est. pro needs) Expected Outcomes/Goals: Improved nutritional status, hemodynamic stability. Plan discussed with: Other (Rn) CARTER ARCE MD Mar 09, 2025 11:36
[2025-03-09] MEDS: LIDOCAINE 1% (LOCAL ANESTH.) PF 5ml SDV ID ONE (11:58)
--- NOTE | 2025-03-09 12:13 | DVHPN2 ---
Assessment/Plan Assessment/Plan ICU progress note 69 F with afib on eliquis, HFpEF, pHTN, RV failure, COPD group E on home O2, IDDM admitted for SOB, intubated 02/20/2025, extubated 02/28. reintubated, now on HD. patient seen during rounds, in sync with vent, minimal settings, on levophed. IAP 11, given golytely, still no BM. hold feeding. for dialysis today. plan for trach Physical exam intubated, sedated on mechanical ventilator morbidly obese intact reflexes MMM mechanical breath sounds s1 s2 RRR distant abdomen distended b/l LE edema vent AC?VC 35% Peep 6, 400cc, rr 26 drips levo Labs, EKG, imaging reviewed Assessment and plan septic shock acute on chronic diastolic CHF with RV failure pHTN class 2/3 Type 2 CO afib with RVR mod to severe TR pericardial effusion acute on chornic hypoxic hypercarbic respiratory failure req mehcanical vent s/p extubation and reintubation HERVE/OHS PNA gp gn COPD group E with exacerbation AN ATN morbid obesity bowel distention likely ileus slow transit constipation transaminitis thrombocytopenic normocytic anemia AUB vs vaginal brleeding c/w mechanical vent c/w pressors, titrate down to keep MAP >65 c/w sedation maintain RAAS -3 plan for trach c.w abx coverage daily IAP bowel reg after BM hold feeding until BM hold anticoagulation lines LIJ TLC PICC HD cath RIJ ETT OGT serrano diet hold Keep K 4, Ph 3, Mg 2 DVT ppx on hold GI ppx protonix condition critical prognosis poor full code GOC curative 60 minutes critical care time, excluding procedures Plan discussed with: Other Date of Service: Mar 09, 2025 Billing Provider: LIANNA ARTEAGA MD Common Visit Codes: [id number] CARE 30-74 MIN LIANNA ARTEAGA MD Mar 09, 2025 12:13
--- NOTE | 2025-03-09 23:30 | DVHPN2 ---
Progress Note - Dictate Date Seen: Mar 09, 2025 Medical Necessity Reason Pt with a Central, PICC or Fol: Yes The following are medically ne: Serrano Catheter Reason for serrano catheter: Strict I&O Subjective Pt completed Golytely last night No BM recorded today Abdomen is softer and less distended Intra-abdominal pressure improved Still hypotensive requiring pressors vital signs Vital Sign Date Time Temp Pulse Resp B/P (MAP) Pulse Ox O2 Delivery O2 Flow Rate FiO2 03/09/25 22:47 102/47 03/09/25 22:00 113 26 95 30 03/09/25 20:00 Mechanical Ventilator+ 03/09/25 18:15 98.6 209.5 Total Intake and Output 03/08/25 03/08/25 03/09/25 15:00 23:00 07:00 Intake Total 600.542 ml 313.687 ml 1843.040 ml Output Total 25 ml 75 ml Balance 600.542 ml 288.687 ml 1768.040 ml medications Current Medications Medications Dose Ordered Sig/Adolfo Route Start Time Stop Time Status Last Admin Dose Admin Nitroglycerin 0.4 mg Q5MINP PRN SL 02/19/25 15:15 Ipratropium [place] 0.5 mg Q6HR NEB 02/19/25 18:00 03/09/25 19:07 0.5 MG Dextrose 50 ml UD PRN IV 02/22/25 07:15 Cancel Pantoprazole Sodium 40 mg DAILY IV 02/26/25 10:00 03/09/25 10:20 40 MG Levalbuterol HCl 1.25 mg Q6HR NEB 03/02/25 18:00 03/09/25 19:07 1.25 MG Midazolam HCl 50 ml @ 1 mls/hr Q24H IV 03/03/25 16:15 03/04/25 06:38 6 MLS/HR Fentanyl Citrate 250 ml @ 2.5 mls/hr Q24H IV 03/03/25 16:15 03/09/25 21:03 12.5 MLS/HR Cefepime HCl 50 ml @ 12.5 mls/hr HS IV 03/03/25 22:00 03/09/25 21:27 12.5 MLS/HR Propofol 100 ml @ 4.326 mls/ hr Q23H7M IV 03/04/25 11:45 03/09/25 22:47 21.63 MLS/HR Epoetin Javan-epbx 10,000 unit 2XW SC 03/04/25 21:00 03/07/25 16:03 10,000 UNIT Enoxaparin Sodium 140 mg DAILY SC 03/05/25 10:00 UNV Diagnostic Test (Pha) 1 strip Q6HR 03/05/25 12:00 03/09/25 17:21 1 STRIP Insulin Human Regular Q6HR SC 03/05/25 12:00 03/08/25 06:18 2 UNITS Dextrose 50 ml UD PRN IV 03/05/25 07:30 Sodium Chloride 10 ml QSHIFT@10,22 IV 03/06/25 10:00 03/09/25 21:27 10 ML Norepinephrine Bitartrate 32 mg/ Sodium Chloride 250 ml @ 0.938 mls/ hr Q24H IV 03/07/25 09:00 03/09/25 00:55 5.625 MLS/HR Vasopressin 20 units/Sodium Chloride 100 ml @ 9 mls/hr Q11H7M IV 03/07/25 09:00 03/08/25 05:21 9 MLS/HR Metoclopramide HCl 5 mg Q8HPRN IV 03/07/25 14:00 03/09/25 21:26 5 MG Iron Sucrose 110 ml @ 110 mls/hr DAILY@1200 IV 03/07/25 13:43 03/11/25 12:59 03/09/25 13:15 110 MLS/HR Enteral Nutritional Formula 1,000 ml 30ML/HR GT 03/07/25 14:15 Albumin Human 50 ml @ 100 mls/hr ENRIQUE PRN IV 03/08/25 14:30 03/13/25 14:29 Cancel objective VITAL SIGNS: She is intubated, morbidly obese. GENERAL: CRISTIANE No cyanosis or jaundice.; NG tube output is minimal and bilious clear NECK: Supple, nontender with no thyromegaly, lymphadenopathy. CHEST AND LUNGS: Relatively clear.decreased BS at bases ABDOMEN: soft less Distended, obese; hypoactive bowel sounds RECTAL: Reported no fecal impaction and no stool in the vault laboratory and microbiology Laboratory Tests 03/09/25 03:58 Test 03/09/25 03:58 Range/Units Serum Glucose 111 H 74-106 mg/dL Problems(with codes): (1) Gaseous abdominal distention (2) Morbid obesity (3) Acute on chronic diastolic heart failure (4) Leg edema Prognosis PLAN Start trickle tube feeds Nepro 20 ml/hr advance to 45 ml/hr Document bowel activity regularly Monitor closely Dietary Evaluation Review Comments: 1. Disagree with current TF orders, change to Vital HP @ 40 ml/hr continuously 2. Provide free water flushes of 30 ml Q8 hrs (90 ml total); adjust PRN 3. Monitor BMP/lytes and replete to WNL 4. When appropriate for oral diet, recommend Cardiac diet as tolerated TF Provision: TF at goal to provide 960 ml total volume, 960 kcal (+958 kcal via propofol = 1918 kcal), 84 gm pro, 0 gm fiber, 107 gm CHO, 801 ml H20 (meets 100% est. kcal needs, 100% est. pro needs) Expected Outcomes/Goals: Improved nutritional status, hemodynamic stability. Plan discussed with: Other (ICU Nurse) ROLAN SAHA MD Mar 09, 2025 23:30
[2025-03-10] VITALS (106 sets, daily range): BP systolic 80–156; BP diastolic 36–81; PULSE 68–137; RESP 13–45; TEMP 97.5–98.6; O2SAT 93–100
[2025-03-10] MEDS: Nepro With Carb Steady 1 Liter Bottle GT SCH (02:11)
[2025-03-10 03:54] LABS: Basophils # (auto) 0 10 ^3/uL (0-0.2); Eosinophils # (auto) 0.1 10 ^3/uL (0-0.8); Hemoglobin 7.7 g/dL (12.2-16.2); Lymphocytes # (auto) 0.5 10 ^3/uL (0.4-5.4); Monocytes # (auto) 0.7 10 ^3/uL (0-1.3); Nucleated Red Blood Cells % 0.2 %
[2025-03-10 03:57] LABS: Basophils % (auto) 0.4 % (0.0-2.0); Eosinophils % (auto) 2.5 % (0.0-7.0); Hematocrit 21.4 % (36.0-46.0); Lymphocytes % (auto) 8.5 % (10.0-50.0); Mean Corpuscular Hemoglobin 33.1 pg (28.0-32.0); Mean Corpuscular Hgb Conc. 35.8 g/dL (32.0-36.0); Mean Corpuscular Volume 92.4 fL (80.0-100.0); Monocytes % (auto) 11.7 % (0.0-12.0); Neutrophils # (auto) 4.4 10 ^3/uL (1.6-8.6); Neutrophils % (auto) 76.9 % (37.0-80.0); Platelet Count (auto) 49 10^3/uL (140-450); Red Blood Cells 2.31 10^6/uL (4.0-5.20); Red Cell Distribution Width 19.3 % (11.8-14.3); White Blood Cell 5.7 10^3/uL (4.4-10.8)
[2025-03-10 04:07] LABS: Chloride 99 mmol/L (98-107)
[2025-03-10 04:08] LABS: Anion Gap 12 (5-15); Carbon Dioxide 23 mmol/L (20-31)
[2025-03-10 04:13] LABS: BUN/Creatinine Ratio 17.3 (10.0-20.0)
[2025-03-10 04:30] LABS: Potassium 3.4 mmol/L (3.5-5.1); Sodium 134 mmol/L (136-145)
[2025-03-10 04:31] LABS: Blood Urea Nitrogen 41 mg/dL (9-23); Calcium 7.9 mg/dL (8.7-10.4); Glucose 119 mg/dL (74-106)
--- NOTE | 2025-03-10 05:41 | DVH ---
CHEST RADIOGRAPH Indication: intubated Technique: Single frontal view of the chest was obtained COMPARISON: XY CHEST PORTABLE on DOS: 03/09/25, XY CHEST PORTABLE on DOS: 03/08/25, XY CHEST PORTABLE o n DOS: 03/07/25, XY CHEST PORTABLE on DOS: 03/06/25, XY CHEST PORTABLE on DOS: 03/06/25 FINDINGS: Lines and Tubes: Unchanged. Lungs: Slight interval progression in diffuse increased prominence of the pulmonary vasculature. Smal l bilateral pleural effusions are not excluded. No pneumothorax. Cardiomediastinal contours: Stable cardiomegaly. Bones: Unremarkable IMPRESSION: 1. Slight interval progression in diffuse increased prominence of the pulmonary vasculature. Small b ilateral pleural effusions are not excluded. 2. Cardiomegaly. 3. Lines and tubes unchanged.
[2025-03-10 06:57] LABS: Platelet Estimate Markedly Decreased
[2025-03-10 06:58] LABS: Anisocytosis Moderate; Tear Drop Cells FEW
[2025-03-10 07:29] LABS: Base Excess 1.6 mmol/L (-2.0-3.0)
[2025-03-10] MEDS: SODIUM CHL 0.9% IV SCH (11:59)
[2025-03-10] MEDS: DAPTOMYCIN IV SCH (11:59)
--- NOTE | 2025-03-10 12:29 | DVHPN2 ---
Progress Note Date Seen: Mar 10, 2025 Medical Necessity Reason Pt with a Central, PICC or Fol: Yes The following are medically ne: Serrano Catheter Reason for serrano catheter: Strict I&O Subjective Review of Systems: RESPIRATORY:Abnormal Other Systems: Patient seen and examined by myself today in follow-up, patient remained intubated on ventilator Objective vital signs Vital Sign Date Time Temp Pulse Resp B/P (MAP) Pulse Ox O2 Delivery O2 Flow Rate FiO2 03/10/25 10:45 97.7 84 26 116/61 (79) 97 207.9 03/10/25 10:00 Mechanical Ventilator+ 30 30 Total Intake and Output 03/09/25 03/09/25 03/10/25 14:59 22:59 06:59 Intake Total 419.604 ml 387.838 ml 624.7612 ml Output Total 50 ml 200 ml Balance 419.604 ml 337.838 ml 424.7612 ml medications Current Medications Medications Dose Ordered Sig/Adolfo Route Start Time Stop Time Status Last Admin Dose Admin Nitroglycerin 0.4 mg Q5MINP PRN SL 02/19/25 15:15 Ipratropium [place] 0.5 mg Q6HR NEB 02/19/25 18:00 03/10/25 05:50 0.5 MG Dextrose 50 ml UD PRN IV 02/22/25 07:15 Cancel Pantoprazole Sodium 40 mg DAILY IV 02/26/25 10:00 03/10/25 09:09 40 MG Levalbuterol HCl 1.25 mg Q6HR NEB 03/02/25 18:00 03/10/25 05:50 1.25 MG Midazolam HCl 50 ml @ 1 mls/hr Q24H IV 03/03/25 16:15 03/04/25 06:38 6 MLS/HR Fentanyl Citrate 250 ml @ 2.5 mls/hr Q24H IV 03/03/25 16:15 03/10/25 12:12 15 MLS/HR Cefepime HCl 50 ml @ 12.5 mls/hr HS IV 03/03/25 22:00 03/09/25 21:27 12.5 MLS/HR Propofol 100 ml @ 4.326 mls/ hr Q23H7M IV 03/04/25 11:45 03/10/25 12:09 30.282 MLS/HR Epoetin Javan-epbx 10,000 unit 2XW SC 03/04/25 21:00 03/07/25 16:03 10,000 UNIT Enoxaparin Sodium 140 mg DAILY SC 03/05/25 10:00 UNV Diagnostic Test (Pha) 1 strip Q6HR 03/05/25 12:00 03/10/25 11:47 1 STRIP Insulin Human Regular Q6HR SC 03/05/25 12:00 03/08/25 06:18 2 UNITS Dextrose 50 ml UD PRN IV 03/05/25 07:30 Sodium Chloride 10 ml QSHIFT@10,22 IV 03/06/25 10:00 03/10/25 10:00 10 ML Norepinephrine Bitartrate 32 mg/ Sodium Chloride 250 ml @ 0.938 mls/ hr Q24H IV 03/07/25 09:00 03/10/25 05:39 6.563 MLS/HR Vasopressin 20 units/Sodium Chloride 100 ml @ 9 mls/hr Q11H7M IV 03/07/25 09:00 03/08/25 05:21 9 MLS/HR Metoclopramide HCl 5 mg Q8HPRN IV 03/07/25 14:00 03/10/25 05:40 5 MG Iron Sucrose 110 ml @ 110 mls/hr DAILY@1200 IV 03/07/25 13:43 03/11/25 12:59 03/09/25 13:15 110 MLS/HR Albumin Human 50 ml @ 100 mls/hr ENRIQUE PRN IV 03/08/25 14:30 03/13/25 14:29 Cancel Enteral Nutritional Formula 1,000 ml 20ML/HR GT 03/09/25 23:30 03/10/25 02:11 1,000 ML Daptomycin 850 mg/ Sodium Chloride 50 ml @ 100 mls/hr DAILY IV 03/10/25 10:00 03/10/25 11:59 100 MLS/HR Examination: LUNGS:Normal, CVS:Normal, MSK:Abnormal laboratory and microbiology Laboratory Tests 03/10/25 03:37 Test 03/10/25 03:37 Range/Units Serum Glucose 119 H 74-106 mg/dL Microbiology Date/Time Source Procedure Growth Status 03/07/25 20:36 Urine - [place] Urine Culture - Preliminary Resulted 03/06/25 11:25 Blood Blood Culture - Preliminary NO GROWTH AFTER 72 HOURS OF INCUBATION. Resulted 03/03/25 16:40 Sputum Gram Stain - Final Complete 03/03/25 16:40 Sputum Respiratory Culture - Final Complete 02/21/25 09:30 Nose MRSA Screen - Final Complete Problem List/Assessment/Plan Problem List/Assessment/Plan Acute kidney injury superimposed Chronic Kidney Disease stage III secondary to ATN, FeNa > 2%, anuric/oliguric requiring intermittent hemodialysis Acute hypoxic respiratory failure, intubated on ventilator Atrial fibrillation with RVR Anemia Vaginal bleeding COPD Congestive heart failure Pulmonary hypertension Ileus Leukocytosis Septic shock Iron deficiency Hypokalemia Recommendations Hemodialysis tomorrow Epogen 85379 subQ 3 times weekly Albumin 25% p.r.n. hemodialysis Serrano catheter Strict I&Os KCL replacement IV Venofer NGT to intermittent suction Sepsis workup per primary team Noted plan for tracheostomy We will continue to follow Plan discussed with: Other (Nurse) Dietary Evaluation Review Comments: 1. Disagree with current TF orders, change to Vital HP @ 40 ml/hr continuously 2. Provide free water flushes of 30 ml Q8 hrs (90 ml total); adjust PRN 3. Monitor BMP/lytes and replete to WNL 4. When appropriate for oral diet, recommend Cardiac diet as tolerated TF Provision: TF at goal to provide 960 ml total volume, 960 kcal (+958 kcal via propofol = 1918 kcal), 84 gm pro, 0 gm fiber, 107 gm CHO, 801 ml H20 (meets 100% est. kcal needs, 100% est. pro needs) Expected Outcomes/Goals: Improved nutritional status, hemodynamic stability. KATJA ZIMMERMAN MD Mar 10, 2025 12:29
--- NOTE | 2025-03-10 12:39 | DVHPN2 ---
Progress Note - Dictate Date Seen: Mar 10, 2025 Medical Necessity Reason Pt with a Central, PICC or Fol: Yes The following are medically ne: Serrano Catheter Reason for serrano catheter: Strict I&O Subjective Covering for Dr. Recio Patient seen and examined Overnight events reviewed vital signs Vital Sign Date Time Temp Pulse Resp B/P (MAP) Pulse Ox O2 Delivery O2 Flow Rate FiO2 03/10/25 10:45 97.7 84 26 116/61 (79) 97 207.9 03/10/25 10:00 Mechanical Ventilator+ 30 30 Total Intake and Output 03/09/25 03/09/25 03/10/25 14:59 22:59 06:59 Intake Total 419.604 ml 387.838 ml 624.7612 ml Output Total 50 ml 200 ml Balance 419.604 ml 337.838 ml 424.7612 ml medications Current Medications Medications Dose Ordered Sig/Adolfo Route Start Time Stop Time Status Last Admin Dose Admin Nitroglycerin 0.4 mg Q5MINP PRN SL 02/19/25 15:15 Ipratropium [place] 0.5 mg Q6HR NEB 02/19/25 18:00 03/10/25 05:50 0.5 MG Dextrose 50 ml UD PRN IV 02/22/25 07:15 Cancel Pantoprazole Sodium 40 mg DAILY IV 02/26/25 10:00 03/10/25 09:09 40 MG Levalbuterol HCl 1.25 mg Q6HR NEB 03/02/25 18:00 03/10/25 05:50 1.25 MG Midazolam HCl 50 ml @ 1 mls/hr Q24H IV 03/03/25 16:15 03/04/25 06:38 6 MLS/HR Fentanyl Citrate 250 ml @ 2.5 mls/hr Q24H IV 03/03/25 16:15 03/10/25 12:12 15 MLS/HR Cefepime HCl 50 ml @ 12.5 mls/hr HS IV 03/03/25 22:00 03/09/25 21:27 12.5 MLS/HR Propofol 100 ml @ 4.326 mls/ hr Q23H7M IV 03/04/25 11:45 03/10/25 12:09 30.282 MLS/HR Epoetin Javan-epbx 10,000 unit 2XW SC 03/04/25 21:00 03/07/25 16:03 10,000 UNIT Enoxaparin Sodium 140 mg DAILY SC 03/05/25 10:00 UNV Diagnostic Test (Pha) 1 strip Q6HR 03/05/25 12:00 03/10/25 11:47 1 STRIP Insulin Human Regular Q6HR SC 03/05/25 12:00 03/08/25 06:18 2 UNITS Dextrose 50 ml UD PRN IV 03/05/25 07:30 Sodium Chloride 10 ml QSHIFT@10,22 IV 03/06/25 10:00 03/10/25 10:00 10 ML Norepinephrine Bitartrate 32 mg/ Sodium Chloride 250 ml @ 0.938 mls/ hr Q24H IV 03/07/25 09:00 03/10/25 05:39 6.563 MLS/HR Vasopressin 20 units/Sodium Chloride 100 ml @ 9 mls/hr Q11H7M IV 03/07/25 09:00 03/08/25 05:21 9 MLS/HR Metoclopramide HCl 5 mg Q8HPRN IV 03/07/25 14:00 03/10/25 05:40 5 MG Iron Sucrose 110 ml @ 110 mls/hr DAILY@1200 IV 03/07/25 13:43 03/11/25 12:59 03/09/25 13:15 110 MLS/HR Albumin Human 50 ml @ 100 mls/hr ENRIQUE PRN IV 03/08/25 14:30 03/13/25 14:29 Cancel Enteral Nutritional Formula 1,000 ml 20ML/HR GT 03/09/25 23:30 03/10/25 02:11 1,000 ML Daptomycin 850 mg/ Sodium Chloride 50 ml @ 100 mls/hr DAILY IV 03/10/25 10:00 03/10/25 11:59 100 MLS/HR laboratory and microbiology Laboratory Tests 03/10/25 03:37 Test 03/10/25 03:37 Range/Units Serum Glucose 119 H 74-106 mg/dL Assessment/Plan Radar Tester rounds Impression Acute hypoxemic respiratory failure Morbid obesity Septic shock NSTEMI Pneumonia Patient seen and examined in ICU Events On mechanical ventilation S/p re-intubation PEEP 5, FiO2 30% awaiting tracheostomy on tuesday ABG reviewed Management Vent support Titrate to maintain sats 90% or above Continue antibiotics F/u cultures Bronchodilators Monitor renal function F/u nephrology, management deferred Monitor electrolytes Supplement as needed Pressors as needed for hemodynamic support To maintain a mean arterial pressure of 65 mmHg DVT prophylaxis Critical care time 35 minutes Dietary Evaluation Review Comments: 1. Disagree with current TF orders, change to Vital HP @ 40 ml/hr continuously 2. Provide free water flushes of 30 ml Q8 hrs (90 ml total); adjust PRN 3. Monitor BMP/lytes and replete to WNL 4. When appropriate for oral diet, recommend Cardiac diet as tolerated TF Provision: TF at goal to provide 960 ml total volume, 960 kcal (+958 kcal via propofol = 1918 kcal), 84 gm pro, 0 gm fiber, 107 gm CHO, 801 ml H20 (meets 100% est. kcal needs, 100% est. pro needs) Expected Outcomes/Goals: Improved nutritional status, hemodynamic stability. Plan discussed with: Other (rn) CARTER ARCE MD Mar 10, 2025 12:39
--- NOTE | 2025-03-10 14:03 | DVHPN2 ---
Assessment/Plan Assessment/Plan ICU progress note 69 F with afib on eliquis, HFpEF, pHTN, RV failure, COPD group E on home O2, IDDM admitted for SOB, intubated 02/20/2025, extubated 02/28. reintubated, now on HD. patient seen during rounds, in sync with vent, minimal settings, on levophed up than prior, POCUS done, decent contractility, plethoric IVC, did not get HD yesterday, VRE UTI, although thrombocytopenic, started on daptio for UTI. Physical exam intubated, sedated on mechanical ventilator morbidly obese intact reflexes MMM mechanical breath sounds s1 s2 RRR distant abdomen distended b/l LE edema vent AC?VC 35% Peep 6, 400cc, rr 26 drips levo Labs, EKG, imaging reviewed Assessment and plan septic shock acute on chronic diastolic CHF with RV failure pHTN class 2/3 Type 2 DE afib with RVR mod to severe TR pericardial effusion acute on chornic hypoxic hypercarbic respiratory failure req mehcanical vent s/p extubation and reintubation HERVE/OHS PNA gp gn COPD group E with exacerbation AN ATN morbid obesity bowel distention likely ileus slow transit constipation transaminitis thrombocytopenic normocytic anemia AUB vs vaginal brleeding c/w mechanical vent c/w pressors, titrate down to keep MAP >65 c/w sedation maintain RAAS -3 plan for trach c.w start dapto daily IAP bowel reg after BM hold feeding until BM hold anticoagulation lines LIJ TLC PICC HD cath RIJ ETT OGT serrano diet hold Keep K 4, Ph 3, Mg 2 DVT ppx on hold GI ppx protonix condition critical prognosis poor full code GOC curative 60 minutes critical care time, excluding procedures Plan discussed with: Other My Orders Orders - LIANNA ARTEAGA MD Procedure Category Date Status Time Chest Xray 1 View XY 03/10/25 Resulted 04:00 Abg W/ Co-Ox RT 03/10/25 Logged 07:00 Daptomycin (Cubicin) PHA 03/10/25 In Process 10:00 Creatine Kinase LAB 03/11/25 Verified 05:00 Prothrombin Time W/ LAB 03/11/25 Verified INR 04:00 Date of Service: Mar 10, 2025 Billing Provider: LIANNA ARTEAGA MD Common Visit Codes: [id number] CARE 30-74 LIANNA WEST MD Mar 10, 2025 14:03
[2025-03-10] MEDS: ALBUMIN 25% 50 ML IV ONE ×2 (18:30)
--- NOTE | 2025-03-10 21:32 | DVHPN2 ---
Progress Note - Dictate Date Seen: Mar 10, 2025 Medical Necessity Reason Pt with a Central, PICC or Fol: Yes The following are medically ne: Serrano Catheter Reason for serrano catheter: Strict I&O Subjective Patient is still intubated sedated She had a one bowel movement today Abdomen is softer and less distended Intra-abdominal pressure improved Still hypotensive requiring pressors vital signs Vital Sign Date Time Temp Pulse Resp B/P (MAP) Pulse Ox O2 Delivery O2 Flow Rate FiO2 03/10/25 20:25 122/53 03/10/25 19:51 107 26 94 30 03/10/25 19:15 98.6 98.6 03/10/25 18:57 Mechanical Ventilator+ Total Intake and Output 03/09/25 03/09/25 03/10/25 15:00 23:00 07:00 Intake Total 417.729 ml 401.8036 ml 624.7606 ml Output Total 50 ml 200 ml Balance 417.729 ml 351.8036 ml 424.7606 ml medications Current Medications Medications Dose Ordered Sig/Adolfo Route Start Time Stop Time Status Last Admin Dose Admin Nitroglycerin 0.4 mg Q5MINP PRN SL 02/19/25 15:15 Ipratropium [place] 0.5 mg Q6HR NEB 02/19/25 18:00 03/10/25 18:52 0.5 MG Dextrose 50 ml UD PRN IV 02/22/25 07:15 Cancel Pantoprazole Sodium 40 mg DAILY IV 02/26/25 10:00 03/10/25 09:09 40 MG Levalbuterol HCl 1.25 mg Q6HR NEB 03/02/25 18:00 03/10/25 18:52 1.25 MG Midazolam HCl 50 ml @ 1 mls/hr Q24H IV 03/03/25 16:15 03/04/25 06:38 6 MLS/HR Fentanyl Citrate 250 ml @ 2.5 mls/hr Q24H IV 03/03/25 16:15 03/10/25 12:12 15 MLS/HR Cefepime HCl 50 ml @ 12.5 mls/hr HS IV 03/03/25 22:00 03/09/25 21:27 12.5 MLS/HR Propofol 100 ml @ 4.326 mls/ hr Q23H7M IV 03/04/25 11:45 03/10/25 20:25 30.282 MLS/HR Epoetin [place]avan-epbx 10,000 unit 2XW SC 03/04/25 21:00 03/10/25 13:12 10,000 UNIT Enoxaparin Sodium 140 mg DAILY SC 03/05/25 10:00 UNV Diagnostic Test (Pha) 1 strip Q6HR 03/05/25 12:00 03/10/25 18:08 1 STRIP Insulin Human Regular Q6HR SC 03/05/25 12:00 03/08/25 06:18 2 UNITS Dextrose 50 ml UD PRN IV 03/05/25 07:30 Sodium Chloride 10 ml QSHIFT@10,22 IV 03/06/25 10:00 03/10/25 10:00 10 ML Norepinephrine Bitartrate 32 mg/ Sodium Chloride 250 ml @ 0.938 mls/ hr Q24H IV 03/07/25 09:00 03/10/25 05:39 6.563 MLS/HR Vasopressin 20 units/Sodium Chloride 100 ml @ 9 mls/hr Q11H7M IV 03/07/25 09:00 03/08/25 05:21 9 MLS/HR Metoclopramide HCl 5 mg Q8HPRN IV 03/07/25 14:00 03/10/25 14:37 5 MG Iron Sucrose 110 ml @ 110 mls/hr DAILY@1200 IV 03/07/25 13:43 03/11/25 12:59 03/10/25 13:13 110 MLS/HR Albumin Human 50 ml @ 100 mls/hr ENRIQUE PRN IV 03/08/25 14:30 03/13/25 14:29 Cancel Enteral Nutritional Formula 1,000 ml 20ML/HR GT 03/09/25 23:30 03/10/25 02:11 1,000 ML Daptomycin 850 mg/ Sodium Chloride 50 ml @ 100 mls/hr DAILY IV 03/10/25 10:00 03/11/25 23:59 03/10/25 11:59 100 MLS/HR Daptomycin 500 mg/ Sodium Chloride 50 ml @ 100 mls/hr DAILY IV 03/12/25 10:00 objective VITAL SIGNS: She is intubated, morbidly obese. GENERAL: CRISTIANE No cyanosis or jaundice.; NG tube output is minimal and bilious clear NECK: Supple, nontender with no thyromegaly, lymphadenopathy. CHEST AND LUNGS: Relatively clear.decreased BS at bases ABDOMEN: soft less Distended, obese; hypoactive bowel sounds RECTAL: Reported no fecal impaction and no stool in the vault laboratory and microbiology Laboratory Tests 03/10/25 03:37 Test 03/10/25 03:37 Range/Units Serum Glucose 119 H 74-106 mg/dL Problems(with codes): (1) Gaseous distention of intestine determined by X-ray (2) CHF (congestive heart failure) (3) Morbid obesity (4) Elevated troponin (5) Acute on chronic diastolic heart failure Prognosis PLAN Start trickle tube feeds Nepro 20 ml/hr advance to 45 ml/hr Document bowel activity regularly Monitor closely Dietary Evaluation Review Comments: 1. Disagree with current TF orders, change to Vital HP @ 40 ml/hr continuously 2. Provide free water flushes of 30 ml Q8 hrs (90 ml total); adjust PRN 3. Monitor BMP/lytes and replete to WNL 4. When appropriate for oral diet, recommend Cardiac diet as tolerated TF Provision: TF at goal to provide 960 ml total volume, 960 kcal (+958 kcal via propofol = 1918 kcal), 84 gm pro, 0 gm fiber, 107 gm CHO, 801 ml H20 (meets 100% est. kcal needs, 100% est. pro needs) Expected Outcomes/Goals: Improved nutritional status, hemodynamic stability. Plan discussed with: Other (Nurse Johnson) ROLAN SAHA MD Mar 10, 2025 21:32
[2025-03-11] VITALS (110 sets, daily range): BP systolic 91–163; BP diastolic 37–84; PULSE 80–142; RESP 22–29; TEMP 97.2–99.3; O2SAT 93–100
[2025-03-11 04:19] LABS: Basophils # (auto) 0 10 ^3/uL (0-0.2); Eosinophils # (auto) 0.1 10 ^3/uL (0-0.8); Lymphocytes # (auto) 0.3 10 ^3/uL (0.4-5.4); Monocytes # (auto) 0.7 10 ^3/uL (0-1.3)
[2025-03-11 04:22] LABS: Basophils % (auto) 0.1 % (0.0-2.0); Eosinophils % (auto) 3.1 % (0.0-7.0); Lymphocytes % (auto) 8.4 % (10.0-50.0); Mean Corpuscular Hemoglobin 30.6 pg (28.0-32.0); Mean Corpuscular Hgb Conc. 33.2 g/dL (32.0-36.0); Mean Corpuscular Volume 92.3 fL (80.0-100.0); Neutrophils # (auto) 2.9 10 ^3/uL (1.6-8.6); Neutrophils % (auto) 72.4 % (37.0-80.0); Nucleated Red Blood Cells % 0.3 %; Platelet Count (auto) 51 10^3/uL (140-450); Red Cell Distribution Width 19.6 % (11.8-14.3); White Blood Cell 4.1 10^3/uL (4.4-10.8)
[2025-03-11 04:35] LABS: Anion Gap 17 (5-15); Calcium 8.9 mg/dL (8.7-10.4); Carbon Dioxide 25 mmol/L (20-31); Chloride 101 mmol/L (98-107); Potassium 4.3 mmol/L (3.5-5.1); Sodium 143 mmol/L (136-145)
[2025-03-11 04:41] LABS: BUN/Creatinine Ratio 18.2 (10.0-20.0)
[2025-03-11 04:42] LABS: Blood Urea Nitrogen 55 mg/dL (9-23); Creatine Kinase IFCC 108 U/L (34-145); Glucose 136 mg/dL (74-106)
[2025-03-11 04:43] LABS: INR 1.02 (0.9-1.15); Phosphorus 4.6 mg/dL (2.4-5.1); Prothrombin Time 10.8 sec (9.3-11.8)
[2025-03-11 04:51] LABS: Anisocytosis Slight; Platelet Estimate Decreased
--- NOTE | 2025-03-11 05:30 | DVH ---
EXAM: XR Chest, 1 View CLINICAL INDICATION: INTUBATED TECHNIQUE: Frontal view of the chest. COMPARISON: XY CHEST XRAY 1 VIEW on DOS: 03/10/25, XY CHEST PORTABLE on DOS: 03/09/25, XY CHEST SAGAR BLE on DOS: 03/08/25, XY CHEST PORTABLE on DOS: 03/07/25, XY CHEST PORTABLE on DOS: 03/06/25 FINDINGS: LUNGS AND PLEURAL SPACES: See below. HEART: Cardiomegaly with pulmonary congestion and edema. Superimposed pneumonia cannot be excluded. MEDIASTINUM: Unremarkable. Normal mediastinal contour. BONES/JOINTS: Unremarkable. No acute fracture. TUBES, LINES AND DEVICES: Right internal jugular central venous catheter tip in the superior vena c esdras. The endotracheal tube (ETT) is in satisfactory position. Enteric tube tip in the stomach. OTHER FINDINGS: . . .. IMPRESSION: Cardiomegaly with pulmonary congestion and edema. Superimposed pneumonia cannot be excluded.
[2025-03-11 07:55] LABS: Base Excess 0.4 mmol/L (-2.0-3.0)
[2025-03-11] MEDS: SODIUM CHL 0.9% 1000 ML BAG XX ONE (09:15)
[2025-03-11] MEDS ORDERED: FUROSEMIDE 40 MG/4 ML VIAL IV SCH (10:00)
--- NOTE | 2025-03-11 10:41 | DVHPNRES ---
Progress Note Date Seen: Mar 11, 2025 Resident Creating Document: NENA ZHOU RESIDENT Medical Necessity Reason Pt with a Central, PICC or Fol: Yes The following are medically ne: Serrano Catheter Reason for serrano catheter: Strict I&O Subjective Review of Systems Patient was seen and examined at bedside. She remains on mechanical ventilator, FiO2 was 35%. Peep 5. Respiratory rate still at 26. Patient on Levophed at 10, she is on fentanyl and Versed. Measured intraabdominal pressure through intravesical catheter, currently at 8. Trach tomorrow Objective vital signs Vital Sign Date Time Temp Pulse Resp B/P (MAP) Pulse Ox O2 Delivery O2 Flow Rate FiO2 03/11/25 09:58 26 96 Mechanical Ventilator+ 30 30 03/11/25 09:58 108 03/11/25 09:45 97.9 113/60 (77) 208.2 Total Intake and Output 03/10/25 03/10/25 03/11/25 15:00 23:00 07:00 Intake Total 547.290 ml 1083.942 ml 659.072 ml Output Total 150 ml 101 ml Balance 547.290 ml 933.942 ml 558.072 ml medications Current Medications Medications Dose Ordered Sig/Adolfo Route Start Time Stop Time Status Last Admin Dose Admin Nitroglycerin 0.4 mg Q5MINP PRN SL 02/19/25 15:15 Ipratropium [place] 0.5 mg Q6HR NEB 02/19/25 18:00 03/11/25 05:59 0.5 MG Dextrose 50 ml UD PRN IV 02/22/25 07:15 Cancel Pantoprazole Sodium 40 mg DAILY IV 02/26/25 10:00 03/10/25 09:09 40 MG Levalbuterol HCl 1.25 mg Q6HR NEB 03/02/25 18:00 03/11/25 05:59 1.25 MG Midazolam HCl 50 ml @ 1 mls/hr Q24H IV 03/03/25 16:15 03/04/25 06:38 6 MLS/HR Fentanyl Citrate 250 ml @ 2.5 mls/hr Q24H IV 03/03/25 16:15 03/11/25 06:14 15 MLS/HR Cefepime HCl 50 ml @ 12.5 mls/hr HS IV 03/03/25 22:00 03/10/25 22:09 12.5 MLS/HR Propofol 100 ml @ 4.326 mls/ hr Q23H7M IV 03/04/25 11:45 03/11/25 09:14 30.282 MLS/HR Epoetin Javan-epbx 10,000 unit 2XW SC 03/04/25 21:00 03/10/25 13:12 10,000 UNIT Enoxaparin Sodium 140 mg DAILY SC 03/05/25 10:00 UNV Diagnostic Test (Pha) 1 strip Q6HR 03/05/25 12:00 03/11/25 06:05 1 STRIP Insulin Human Regular Q6HR SC 03/05/25 12:00 03/08/25 06:18 2 UNITS Dextrose 50 ml UD PRN IV 03/05/25 07:30 Sodium Chloride 10 ml QSHIFT@10,22 IV 03/06/25 10:00 03/11/25 10:04 10 ML Norepinephrine Bitartrate 32 mg/ Sodium Chloride 250 ml @ 0.938 mls/ hr Q24H IV 03/07/25 09:00 03/11/25 06:08 6.563 MLS/HR Vasopressin 20 units/Sodium Chloride 100 ml @ 9 mls/hr Q11H7M IV 03/07/25 09:00 03/08/25 05:21 9 MLS/HR Metoclopramide HCl 5 mg Q8HPRN IV 03/07/25 14:00 03/11/25 06:05 5 MG Iron Sucrose 110 ml @ 110 mls/hr DAILY@1200 IV 03/07/25 13:43 03/11/25 12:59 03/10/25 13:13 110 MLS/HR Albumin Human 50 ml @ 100 mls/hr ENRIQEU PRN IV 03/08/25 14:30 03/13/25 14:29 Cancel Enteral Nutritional Formula 1,000 ml 20ML/HR GT 03/09/25 23:30 03/11/25 08:22 1,000 ML Albumin Human 100 ml @ 100 mls/hr WD PRN IV 03/11/25 10:15 UNV Examination Physical examination as below: General: Mechanically ventilated, intubated HEENT: Head is normocephalic and atraumatic. Pupils are equal, round, and reactive to light. Neck: Supple with no cervical lymphadenopathy. Heart: Regular rate without murmur, rub, or gallop. Lungs: Mild bilateral diffuse crackles and scattered wheezing Abdomen: No external sign of injury. Bowel sounds are present. Abdomen is soft, nontender. Distended Extremities: Strong peripheral pulses. There is no clubbing, no cyanosis, and no edema. Skin: No rash. Neurologic: Sedated laboratory and microbiology Laboratory Tests 03/11/25 03:57 Test 03/11/25 03:57 Range/Units Serum Glucose 136 H 74-106 mg/dL Microbiology Date/Time Source Procedure Growth Status 03/07/25 20:36 Urine - [place] Urine Culture - Preliminary Resulted 03/06/25 11:25 Blood Blood Culture - Preliminary NO GROWTH AFTER 72 HOURS OF INCUBATION. Resulted 03/03/25 16:40 Sputum Gram Stain - Final Complete 03/03/25 16:40 Sputum Respiratory Culture - Final Complete 02/21/25 09:30 Nose MRSA Screen - Final Complete Labs and/or images reviewed: Labs reviewed by me, Image(s) reviewed by me Problem List/Assessment/Plan Problem List/Assessment/Plan Neurology #Metabolic encephalopathy due to sepsis On fentanyl and propofol Cardiovascular #Acute on chronic diastolic CHF with RV failure #Pulmonary hypertension, class 2 vs 3, moderate-severe #NSTEMI likely type 2 #Atrial fibrillation with rapid ventricular rate #Tricuspid regurgitation, [id number] degree #Pericardial effusion On hemodialysis as needed Cardiology following Held Lovenox 1mg/kg qd due to thrombocytopenia Pulmonology #Acute on chronic hypoxic and hypercarbic respiratory failure, on mechanical ventilator #Obstructive sleep apnea #Obesity hypoventilation syndrome #Respiratory acidosis, compensated #Pneumonia, gram (+) vs gram (-), atypicals #COPD exacerbation #Mucous plugs s/p bronch 03/03/25 On MV: FIO2: 35%. PEEP: 5. RR: 26. TV: 450ml DuoNebs q6hrs Cefepime IV Tracheostomy on tuesday by dr. forman Nephrology #AN, likely ATN Monitor, continue HD Nephrology following Endocrinology #Morbid obesity Gastroenterology #Bowel distention, possible SBO, ileus #Constipation Reviewed KUB, cannot fit CAT scan Consulted GI for decompression, performed on 03/07/25 intrabdominal pressure down from 19-13 to 8 today 03/11/25 Held tube feeding: Glucerna, may restart tomorrow #Transaminitis, likely due to sepsis Monitor, trending down Hematology and Oncology #Thrombocytopenia likely due to sepsis monitor #Anemia normocytic normochromic Monitor, currently stable Infectious Disease #Septic shock due to Pneumonia, gram (+) vs gram (-), atypicals #UTI, complicated, growing VRE possible colonization repeat urine culture, pending Dermatology X Gynecology #Vaginal bleeding Consulted ADMINISTRATIVE DIRECTOR, bleeding intermittently Pelvic US: Unable to visualize uterus and both ovaries. DVT ppx Lovenox PUD ppx Protonix Drips Levo 10 Vasopressin Fent Propofol Lines PICC line 03/06/25 PRITI right, non-tunneled dialysis 03/03/25 ReIntubated 03/03/25 Intubated 02/20, extubated 03/01 Updated family member on patient's current status. Had a discussion with spouse about tracheostomy, he wants to purse it. Goals of care were discussed for over 30 minutes. FULL CODE. Critical care time spent excluding procedures was 83 mins Case was discussed with Dr. Mays Plan discussed with: Spouse, Other (RN) Dietary Evaluation Review Comments: 1. Disagree with current TF orders, change to Vital HP @ 40 ml/hr continuously 2. Provide free water flushes of 30 ml Q8 hrs (90 ml total); adjust PRN 3. Monitor BMP/lytes and replete to WNL 4. When appropriate for oral diet, recommend Cardiac diet as tolerated TF Provision: TF at goal to provide 960 ml total volume, 960 kcal (+958 kcal via propofol = 1918 kcal), 84 gm pro, 0 gm fiber, 107 gm CHO, 801 ml H20 (meets 100% est. kcal needs, 100% est. pro needs) Expected Outcomes/Goals: Improved nutritional status, hemodynamic stability. Date of Service: Mar 11, 2025 Billing Provider: CARTER ARCE MD Common Visit Codes: NOT BILLABLE NENA ZHOU RESIDENT Mar 11, 2025 10:41 CARTER ARCE MD Mar 12, 2025 09:43
--- NOTE | 2025-03-11 10:51 | DVHPN2 ---
Progress Note Date Seen: Mar 11, 2025 Medical Necessity Reason Pt with a Central, PICC or Fol: Yes The following are medically ne: Serrano Catheter Reason for serrano catheter: Strict I&O Subjective Review of Systems: RESPIRATORY:Abnormal Objective vital signs Vital Sign Date Time Temp Pulse Resp B/P (MAP) Pulse Ox O2 Delivery O2 Flow Rate FiO2 03/11/25 09:58 26 96 Mechanical Ventilator+ 30 30 03/11/25 09:58 108 03/11/25 09:45 97.9 113/60 (77) 208.2 Total Intake and Output 03/10/25 03/10/25 03/11/25 14:59 22:59 06:59 Intake Total 544.478 ml 1083.942 ml 661.884 ml Output Total 150 ml 101 ml Balance 544.478 ml 933.942 ml 560.884 ml medications Current Medications Medications Dose Ordered Sig/Adolfo Route Start Time Stop Time Status Last Admin Dose Admin Nitroglycerin 0.4 mg Q5MINP PRN SL 02/19/25 15:15 Ipratropium [place] 0.5 mg Q6HR NEB 02/19/25 18:00 03/11/25 05:59 0.5 MG Dextrose 50 ml UD PRN IV 02/22/25 07:15 Cancel Pantoprazole Sodium 40 mg DAILY IV 02/26/25 10:00 03/10/25 09:09 40 MG Levalbuterol HCl 1.25 mg Q6HR NEB 03/02/25 18:00 03/11/25 05:59 1.25 MG Midazolam HCl 50 ml @ 1 mls/hr Q24H IV 03/03/25 16:15 03/04/25 06:38 6 MLS/HR Fentanyl Citrate 250 ml @ 2.5 mls/hr Q24H IV 03/03/25 16:15 03/11/25 06:14 15 MLS/HR Cefepime HCl 50 ml @ 12.5 mls/hr HS IV 03/03/25 22:00 03/10/25 22:09 12.5 MLS/HR Propofol 100 ml @ 4.326 mls/ hr Q23H7M IV 03/04/25 11:45 03/11/25 09:14 30.282 MLS/HR Epoetin Javan-epbx 10,000 unit 2XW SC 03/04/25 21:00 03/10/25 13:12 10,000 UNIT Enoxaparin Sodium 140 mg DAILY SC 03/05/25 10:00 UNV Diagnostic Test (Pha) 1 strip Q6HR 03/05/25 12:00 03/11/25 06:05 1 STRIP Insulin Human Regular Q6HR SC 03/05/25 12:00 03/08/25 06:18 2 UNITS Dextrose 50 ml UD PRN IV 03/05/25 07:30 Sodium Chloride 10 ml QSHIFT@10,22 IV 03/06/25 10:00 03/11/25 10:04 10 ML Norepinephrine Bitartrate 32 mg/ Sodium Chloride 250 ml @ 0.938 mls/ hr Q24H IV 03/07/25 09:00 03/11/25 06:08 6.563 MLS/HR Vasopressin 20 units/Sodium Chloride 100 ml @ 9 mls/hr Q11H7M IV 03/07/25 09:00 03/08/25 05:21 9 MLS/HR Metoclopramide HCl 5 mg Q8HPRN IV 03/07/25 14:00 03/11/25 06:05 5 MG Iron Sucrose 110 ml @ 110 mls/hr DAILY@1200 IV 03/07/25 13:43 03/11/25 12:59 03/10/25 13:13 110 MLS/HR Albumin Human 50 ml @ 100 mls/hr ENRIQUE PRN IV 03/08/25 14:30 03/13/25 14:29 Cancel Enteral Nutritional Formula 1,000 ml 20ML/HR GT 03/09/25 23:30 03/11/25 08:22 1,000 ML Albumin Human 100 ml @ 100 mls/hr WD PRN IV 03/11/25 10:15 03/12/25 23:59 Examination: GENERAL:Abnormal, LUNGS:Abnormal, ABDOMEN:Abnormal laboratory and microbiology Laboratory Tests 03/11/25 03:57 Test 03/11/25 03:57 Range/Units Serum Glucose 136 H 74-106 mg/dL Microbiology Date/Time Source Procedure Growth Status 03/07/25 20:36 Urine - [place] Urine Culture - Preliminary Resulted 03/06/25 11:25 Blood Blood Culture - Preliminary NO GROWTH AFTER 72 HOURS OF INCUBATION. Resulted 03/03/25 16:40 Sputum Gram Stain - Final Complete 03/03/25 16:40 Sputum Respiratory Culture - Final Complete 02/21/25 09:30 Nose MRSA Screen - Final Complete Problem List/Assessment/Plan Problem List/Assessment/Plan Acute kidney injury due to shock-> acute HD ckd 3a respiratory failure CHF w/ pulm HTN Illeus COPD, morbid obesity sepsis Iron deficiency anemia thrombocytopenia HD today IV iron ABX as per primary team Plan discussed with: Other My Orders My Orders Orders - AMINAH HAIDER MD Procedure Category Date Status Time Albumin 25% (Albutein) PHA 03/11/25 In Process 10:15 Dietary Evaluation Review Comments: 1. Disagree with current TF orders, change to Vital HP @ 40 ml/hr continuously 2. Provide free water flushes of 30 ml Q8 hrs (90 ml total); adjust PRN 3. Monitor BMP/lytes and replete to WNL 4. When appropriate for oral diet, recommend Cardiac diet as tolerated TF Provision: TF at goal to provide 960 ml total volume, 960 kcal (+958 kcal via propofol = 1918 kcal), 84 gm pro, 0 gm fiber, 107 gm CHO, 801 ml H20 (meets 100% est. kcal needs, 100% est. pro needs) Expected Outcomes/Goals: Improved nutritional status, hemodynamic stability. AMINAH HAIDER MD Mar 11, 2025 10:51
[2025-03-11] MEDS: PROPOFOL 100 ML IV SCH (11:57)
[2025-03-11] MEDS: ALBUMIN 25% 100 ML IV PRN (12:14)
[2025-03-11] MEDS: EPOETIN ALFA-EPBX 10,000 UNIT/1ML VIAL SC ONE (21:10)
[2025-03-12] VITALS (98 sets, daily range): BP systolic 71–159; BP diastolic 36–89; PULSE 83–132; RESP 16–28; TEMP 95.5–99.3; O2SAT 78–100
--- NOTE | 2025-03-12 04:43 | DVH ---
CHEST RADIOGRAPH Indication: sob Technique: Single frontal view of the chest was obtained Comparison: XY CHEST XRAY 1 VIEW on DOS: 03/11/25 FINDINGS: Lines and Tubes: There is a right central venous catheter with its tip terminating in the superior ve na cava. Right PICC terminates in the superior vena cava. The endotracheal tube terminates 4.0 cm ab ove the sejal. The enteric tube courses below the left hemidiaphragm and the tip extends outside the field of view. Lungs: Bilateral opacities noted. Pleura: No effusion. No pneumothorax. Cardiomediastinal contours: Cardiomegaly. Bones: No acute osseous abnormality. IMPRESSION: Stable position of the support lines and tubes. Hazy bilateral opacities similar to prior study. Stable cardiomegaly.
[2025-03-12 05:06] LABS: Basophils # (auto) 0 10 ^3/uL (0-0.2); Eosinophils # (auto) 0.1 10 ^3/uL (0-0.8); Lymphocytes # (auto) 0.4 10 ^3/uL (0.4-5.4); Lymphocytes % (auto) 17.6 % (10.0-50.0); Mean Corpuscular Hgb Conc. 32.1 g/dL (32.0-36.0); Neutrophils # (auto) 1.3 10 ^3/uL (1.6-8.6)
[2025-03-12 05:08] LABS: Basophils % (auto) 0.4 % (0.0-2.0); Eosinophils % (auto) 5.2 % (0.0-7.0); Hematocrit 26.3 % (36.0-46.0); Hemoglobin 8.5 g/dL (12.2-16.2); Mean Corpuscular Volume 93.3 fL (80.0-100.0); Monocytes # (auto) 0.3 10 ^3/uL (0-1.3); Monocytes % (auto) 15.8 % (0.0-12.0); Nucleated Red Blood Cells % 0.8 %; Platelet Count (auto) 44 10^3/uL (140-450); Red Blood Cells 2.82 10^6/uL (4.0-5.20); Red Cell Distribution Width 19.6 % (11.8-14.3); White Blood Cell 2.1 10^3/uL (4.4-10.8)
[2025-03-12 05:34] LABS: Alanine Aminotransferase 12 U/L (7-40); Albumin 3.4 g/dL (3.2-4.8); Anion Gap 12 (5-15); Aspartate Aminotransferase 26 U/L (13-40); BUN/Creatinine Ratio 13.7 (10.0-20.0); Calcium 9.4 mg/dL (8.7-10.4); Carbon Dioxide 27 mmol/L (20-31); Potassium 3.7 mmol/L (3.5-5.1); Sodium 136 mmol/L (136-145)
[2025-03-12 05:35] LABS: Bilirubin, Total 0.5 mg/dL (0.2-1.0)
[2025-03-12 05:43] LABS: Alkaline Phosphatase 131 U/L (46-116); Blood Urea Nitrogen 32 mg/dL (9-23); Chloride 97 mmol/L (98-107); Glucose 144 mg/dL (74-106); Total Protein 5.6 g/dL (5.7-8.2)
[2025-03-12] MEDS ORDERED: ROCURONIUM 10MG/ML 10ML VIAL IV ONE ×2 (07:06→08:31)
[2025-03-12 07:11] LABS: Ovalocytes FEW; Platelet Estimate Decreased
[2025-03-12] MEDS ORDERED: SODIUM CHLORIDE LOCK 20 ML ONE (07:42)
--- NOTE | 2025-03-12 09:43 | DVHOP ---
DATE OF SURGERY: 03/12/2025 PREOPERATIVE DIAGNOSIS: Ventilator-dependent respiratory failure. POSTOPERATIVE DIAGNOSIS: Ventilator-dependent respiratory failure. SURGEON: Jose Angel Morrell MD GRINDER OPERATOR: Amari Talbert NP ANESTHESIA: General endotracheal. ANESTHESIOLOGIST: Gabino. DESCRIPTION OF PROCEDURE: Under general anesthesia with the skin prepped and draped, an incision was made, tissues divided with electrocautery. The trachea was exposed. A tracheotomy was performed through the fifth ring. Size 8 tracheostomy tube was advanced to its final position as the endotracheal tube was withdrawn by the anesthesiologist. Following reaching the final position, there was immediate re-capture of CO2 and return of normal ventilation. The tracheostomy was then secured. The patient remained in unchanged clinical condition at the termination of the procedure and left the operating room following an accurate needle and sponge count. Family was thoroughly informed at [phone]. MD CADE Ozuna/BO TID: [id number] RECEIPT: [id number]
--- NOTE | 2025-03-12 09:58 | DVHPN2 ---
Progress Note Date Seen: Mar 12, 2025 Medical Necessity Reason Pt with a Central, PICC or Fol: Yes The following are medically ne: Serrano Catheter Reason for serrano catheter: Strict I&O Subjective Patient reports: Other (s/p trach) Review of Systems: RESPIRATORY:Abnormal Objective vital signs Vital Sign Date Time Temp Pulse Resp B/P (MAP) Pulse Ox O2 Delivery O2 Flow Rate FiO2 03/12/25 06:30 98.4 90 26 120/60 (80) 97 209.1 03/12/25 06:17 30 03/12/25 06:00 Mechanical Ventilator+ Total Intake and Output 03/11/25 03/11/25 03/12/25 14:59 22:59 06:59 Intake Total 525.697 ml 641.384 ml 761.943 ml Output Total 0 ml 100 ml Balance 525.697 ml 641.384 ml 661.943 ml medications Current Medications Medications Dose Ordered Sig/Adolfo Route Start Time Stop Time Status Last Admin Dose Admin Nitroglycerin 0.4 mg Q5MINP PRN SL 02/19/25 15:15 Ipratropium [place] 0.5 mg Q6HR NEB 02/19/25 18:00 03/12/25 00:05 0.5 MG Dextrose 50 ml UD PRN IV 02/22/25 07:15 Cancel Pantoprazole Sodium 40 mg DAILY IV 02/26/25 10:00 03/11/25 12:34 40 MG Levalbuterol HCl 1.25 mg Q6HR NEB 03/02/25 18:00 03/12/25 06:17 1.25 MG Midazolam HCl 50 ml @ 1 mls/hr Q24H IV 03/03/25 16:15 03/04/25 06:38 6 MLS/HR Fentanyl Citrate 250 ml @ 2.5 mls/hr Q24H IV 03/03/25 16:15 03/11/25 21:19 15 MLS/HR Cefepime HCl 50 ml @ 12.5 mls/hr HS IV 03/03/25 22:00 03/11/25 21:09 12.5 MLS/HR Epoetin Javan-epbx 10,000 unit 2XW SC 03/04/25 21:00 03/10/25 13:12 10,000 UNIT Enoxaparin Sodium 140 mg DAILY SC 03/05/25 10:00 UNV Diagnostic Test (Pha) 1 strip Q6HR 03/05/25 12:00 03/12/25 06:02 1 STRIP Insulin Human Regular Q6HR SC 03/05/25 12:00 03/12/25 06:02 2 UNITS Dextrose 50 ml UD PRN IV 03/05/25 07:30 Sodium Chloride 10 ml QSHIFT@10,22 IV 03/06/25 10:00 03/11/25 21:09 10 ML Norepinephrine Bitartrate 32 mg/ Sodium Chloride 250 ml @ 0.938 mls/ hr Q24H IV 03/07/25 09:00 03/11/25 06:08 6.563 MLS/HR Vasopressin 20 units/Sodium Chloride 100 ml @ 9 mls/hr Q11H7M IV 03/07/25 09:00 03/08/25 05:21 9 MLS/HR Metoclopramide HCl 5 mg Q8HPRN IV 03/07/25 14:00 03/12/25 06:02 5 MG Albumin Human 50 ml @ 100 mls/hr ENRIQUE PRN IV 03/08/25 14:30 03/13/25 14:29 Cancel Enteral Nutritional Formula 1,000 ml 20ML/HR GT 03/09/25 23:30 03/11/25 08:22 1,000 ML Albumin Human 100 ml @ 100 mls/hr WD PRN IV 03/11/25 10:15 03/12/25 23:59 03/11/25 12:14 100 MLS/HR Propofol 100 ml @ 4.23 mls/hr [id number] IV 03/11/25 12:00 03/12/25 05:24 29.61 MLS/HR Examination: GENERAL:Abnormal, LUNGS:Abnormal, ABDOMEN:Abnormal laboratory and microbiology Laboratory Tests 03/12/25 04:37 Test 03/12/25 04:37 Range/Units Serum Glucose 144 H 74-106 mg/dL Microbiology Date/Time Source Procedure Growth Status 03/07/25 20:36 Urine - [place] Urine Culture - Final Yeast, not Rekha albicans Complete 03/06/25 11:25 Blood Blood Culture - Final NO GROWTH AFTER 5 DAYS OF INCUBATION. Complete 03/03/25 16:40 Sputum Gram Stain - Final Complete 03/03/25 16:40 Sputum Respiratory Culture - Final Complete 02/21/25 09:30 Nose MRSA Screen - Final Complete Problem List/Assessment/Plan Problem List/Assessment/Plan Acute kidney injury due to shock-> acute HD ckd 3a respiratory failure-> s/p trach CHF w/ pulm HTN Illeus COPD, morbid obesity sepsis Iron deficiency anemia thrombocytopenia HD tomorrow IV iron ABX as per primary team Plan discussed with: Other My Orders My Orders Orders - AMINAH HAIDER MD Procedure Category Date Status Time Albumin 25% (Albutein) PHA 03/11/25 In Process 10:15 Basic Metabolic Panel LAB 03/13/25 Verified 04:00 Dietary Evaluation Review Comments: 1. Disagree with current TF orders, change to Vital HP @ 40 ml/hr continuously 2. Provide free water flushes of 30 ml Q8 hrs (90 ml total); adjust PRN 3. Monitor BMP/lytes and replete to WNL 4. When appropriate for oral diet, recommend Cardiac diet as tolerated TF Provision: TF at goal to provide 960 ml total volume, 960 kcal (+958 kcal via propofol = 1918 kcal), 84 gm pro, 0 gm fiber, 107 gm CHO, 801 ml H20 (meets 100% est. kcal needs, 100% est. pro needs) Expected Outcomes/Goals: Improved nutritional status, hemodynamic stability. Critical Care Time (mins): 33 AMINAH HAIDER MD Mar 12, 2025 09:58
[2025-03-12] MEDS ORDERED: DAPTOmycin 500 MG in SODIUM CHL 0.9% 50 ML IV SCH (10:00)
--- NOTE | 2025-03-12 10:08 | DVHPN2 ---
Progress Note Date Seen: Mar 12, 2025 Medical Necessity Reason Pt with a Central, PICC or Fol: Yes The following are medically ne: Serrano Catheter Reason for serrano catheter: Strict I&O Objective vital signs Vital Sign Date Time Temp Pulse Resp B/P (MAP) Pulse Ox O2 Delivery O2 Flow Rate FiO2 03/12/25 06:30 98.4 90 26 120/60 (80) 97 209.1 03/12/25 06:17 30 03/12/25 06:00 Mechanical Ventilator+ Total Intake and Output 03/11/25 03/11/25 03/12/25 15:00 23:00 07:00 Intake Total 525.025 ml 641.384 ml 710.77 ml Output Total 0 ml 100 ml Balance 525.025 ml 641.384 ml 610.77 ml medications Current Medications Medications Dose Ordered Sig/Adolfo Route Start Time Stop Time Status Last Admin Dose Admin Nitroglycerin 0.4 mg Q5MINP PRN SL 02/19/25 15:15 Ipratropium [place] 0.5 mg Q6HR NEB 02/19/25 18:00 03/12/25 00:05 0.5 MG Dextrose 50 ml UD PRN IV 02/22/25 07:15 Cancel Pantoprazole Sodium 40 mg DAILY IV 02/26/25 10:00 03/11/25 12:34 40 MG Levalbuterol HCl 1.25 mg Q6HR NEB 03/02/25 18:00 03/12/25 06:17 1.25 MG Midazolam HCl 50 ml @ 1 mls/hr Q24H IV 03/03/25 16:15 03/04/25 06:38 6 MLS/HR Fentanyl Citrate 250 ml @ 2.5 mls/hr Q24H IV 03/03/25 16:15 03/11/25 21:19 15 MLS/HR Cefepime HCl 50 ml @ 12.5 mls/hr HS IV 03/03/25 22:00 03/11/25 21:09 12.5 MLS/HR Epoetin Javan-epbx 10,000 unit 2XW SC 03/04/25 21:00 03/10/25 13:12 10,000 UNIT Enoxaparin Sodium 140 mg DAILY SC 03/05/25 10:00 UNV Diagnostic Test (Pha) 1 strip Q6HR 03/05/25 12:00 03/12/25 06:02 1 STRIP Insulin Human Regular Q6HR SC 03/05/25 12:00 03/12/25 06:02 2 UNITS Dextrose 50 ml UD PRN IV 03/05/25 07:30 Sodium Chloride 10 ml QSHIFT@10,22 IV 03/06/25 10:00 03/11/25 21:09 10 ML Norepinephrine Bitartrate 32 mg/ Sodium Chloride 250 ml @ 0.938 mls/ hr Q24H IV 03/07/25 09:00 03/11/25 06:08 6.563 MLS/HR Vasopressin 20 units/Sodium Chloride 100 ml @ 9 mls/hr Q11H7M IV 03/07/25 09:00 03/08/25 05:21 9 MLS/HR Metoclopramide HCl 5 mg Q8HPRN IV 03/07/25 14:00 03/12/25 06:02 5 MG Albumin Human 50 ml @ 100 mls/hr ENRIQUE PRN IV 03/08/25 14:30 03/13/25 14:29 Cancel Enteral Nutritional Formula 1,000 ml 20ML/HR GT 03/09/25 23:30 03/11/25 08:22 1,000 ML Albumin Human 100 ml @ 100 mls/hr WD PRN IV 03/11/25 10:15 03/12/25 23:59 03/11/25 12:14 100 MLS/HR Propofol 100 ml @ 4.23 mls/hr [id number] IV 03/11/25 12:00 03/12/25 05:24 29.61 MLS/HR laboratory and microbiology Laboratory Tests 03/12/25 04:37 Test 03/12/25 04:37 Range/Units Serum Glucose 144 H 74-106 mg/dL Problem List/Assessment/Plan Problem List/Assessment/Plan 03/12/25 repeat tracheostomy(prior tracheostomy of ? age) ,accomplished with size 8 tracheostomy tube, cxr pending, report dictated Plan discussed with: Other Dietary Evaluation Review Comments: 1. Disagree with current TF orders, change to Vital HP @ 40 ml/hr continuously 2. Provide free water flushes of 30 ml Q8 hrs (90 ml total); adjust PRN 3. Monitor BMP/lytes and replete to WNL 4. When appropriate for oral diet, recommend Cardiac diet as tolerated TF Provision: TF at goal to provide 960 ml total volume, 960 kcal (+958 kcal via propofol = 1918 kcal), 84 gm pro, 0 gm fiber, 107 gm CHO, 801 ml H20 (meets 100% est. kcal needs, 100% est. pro needs) Expected Outcomes/Goals: Improved nutritional status, hemodynamic stability. LILLI STANFORD MD Mar 12, 2025 10:08
--- NOTE | 2025-03-12 10:16 | DVH ---
EXAM: XY CHEST PORTABLE HISTORY: post tracheostomy COMPARISON: XY CHEST PORTABLE on DOS: 03/12/25, XY CHEST XRAY 1 VIEW on DOS: 03/11/25, XY CHEST XRAY 1 VIEW on DOS: 03/10/25, XY CHEST PORTABLE on DOS: 03/09/25, XY CHEST PORTABLE on DOS: 03/08/25 TECHNIQUE: Portable AP view of the chest was performed. FINDINGS: Tracheostomy, NG tube, right upper extremity PICC line, and right IJ central line are re-identified. There is increased infiltrate in the right mid lung. There are increased infiltrates in the left mid to lower lung. No pneumothorax. The heart is markedly enlarged. IMPRESSION: 1. Tracheostomy ventilation. Other tubes and lines as above. 2. Increased infiltrates in both lungs, [id number]. 3. Cardiomegaly.
[2025-03-12 11:00] LABS: Base Excess 2.1 mmol/L (-2.0-3.0)
[2025-03-12] MEDS: POTASSIUM EFFERVESENT TAB 25 MEQ GT ONE (15:56)
--- NOTE | 2025-03-12 17:37 | DVHPNRES ---
Progress Note Date Seen: Mar 12, 2025 Resident Creating Document: NENA ZHOU RESIDENT Medical Necessity Reason Pt with a Central, PICC or Fol: Yes The following are medically ne: Serrano Catheter Reason for serrano catheter: Strict I&O Subjective Review of Systems Patient was seen and examined at bedside. She remains on mechanical ventilator, FiO2 was 35%. Peep 5. Respiratory rate still at 26. Patient on Levophed at 10, she is on fentanyl and Versed. Trach today Objective vital signs Vital Sign Date Time Temp Pulse Resp B/P (MAP) Pulse Ox O2 Delivery O2 Flow Rate FiO2 03/12/25 15:55 111 26 99/48 (65) 98 30 03/12/25 15:00 97.7 207.9 03/12/25 14:00 Mechanical Ventilator+ Total Intake and Output 03/11/25 03/11/25 03/12/25 15:00 23:00 07:00 Intake Total 525.025 ml 641.384 ml 762.88 ml Output Total 0 ml 100 ml Balance 525.025 ml 641.384 ml 662.88 ml medications Current Medications Medications Dose Ordered Sig/Adolfo Route Start Time Stop Time Status Last Admin Dose Admin Nitroglycerin 0.4 mg Q5MINP PRN SL 02/19/25 15:15 Ipratropium [place] 0.5 mg Q6HR NEB 02/19/25 18:00 03/12/25 13:17 0.5 MG Dextrose 50 ml UD PRN IV 02/22/25 07:15 Cancel Pantoprazole Sodium 40 mg DAILY IV 02/26/25 10:00 03/11/25 12:34 40 MG Levalbuterol HCl 1.25 mg Q6HR NEB 03/02/25 18:00 03/12/25 13:17 1.25 MG Midazolam HCl 50 ml @ 1 mls/hr Q24H IV 03/03/25 16:15 03/04/25 06:38 6 MLS/HR Fentanyl Citrate 250 ml @ 2.5 mls/hr Q24H IV 03/03/25 16:15 03/12/25 15:53 15 MLS/HR Cefepime HCl 50 ml @ 12.5 mls/hr HS IV 03/03/25 22:00 03/11/25 21:09 12.5 MLS/HR Epoetin Javan-epbx 10,000 unit 2XW SC 03/04/25 21:00 03/10/25 13:12 10,000 UNIT Enoxaparin Sodium 140 mg DAILY SC 03/05/25 10:00 UNV Diagnostic Test (Pha) 1 strip Q6HR 03/05/25 12:00 03/12/25 12:52 1 STRIP Insulin Human Regular Q6HR SC 03/05/25 12:00 03/12/25 06:02 2 UNITS Dextrose 50 ml UD PRN IV 03/05/25 07:30 Sodium Chloride 10 ml QSHIFT@10,22 IV 03/06/25 10:00 03/12/25 10:00 10 ML Norepinephrine Bitartrate 32 mg/ Sodium Chloride 250 ml @ 0.938 mls/ hr Q24H IV 03/07/25 09:00 03/11/25 06:08 6.563 MLS/HR Vasopressin 20 units/Sodium Chloride 100 ml @ 9 mls/hr Q11H7M IV 03/07/25 09:00 03/08/25 05:21 9 MLS/HR Metoclopramide HCl 5 mg Q8HPRN IV 03/07/25 14:00 03/12/25 12:53 5 MG Albumin Human 50 ml @ 100 mls/hr ENRIQUE PRN IV 03/08/25 14:30 03/13/25 14:29 Cancel Enteral Nutritional Formula 1,000 ml 20ML/HR GT 03/09/25 23:30 03/11/25 08:22 1,000 ML Albumin Human 100 ml @ 100 mls/hr WD PRN IV 03/11/25 10:15 03/12/25 23:59 03/11/25 12:14 100 MLS/HR Propofol 100 ml @ 4.23 mls/hr [id number] IV 03/11/25 12:00 03/12/25 16:45 29.61 MLS/HR Micafungin Sodium 100 mg/Sodium Chloride 100 ml @ 100 mls/hr DAILY IV 03/13/25 10:00 Examination Physical examination as below: General: Mechanically ventilated, tracheostomy HEENT: Head is normocephalic and atraumatic. Pupils are equal, round, and reactive to light. Neck: Supple with no cervical lymphadenopathy. Heart: Regular rate without murmur, rub, or gallop. Lungs: Mild bilateral diffuse crackles and scattered wheezing Abdomen: No external sign of injury. Bowel sounds are present. Abdomen is soft, nontender. Distended Extremities: Strong peripheral pulses. There is no clubbing, no cyanosis, and no edema. Skin: No rash. Neurologic: Sedated laboratory and microbiology Laboratory Tests 03/12/25 04:37 Test 03/12/25 04:37 Range/Units Serum Glucose 144 H 74-106 mg/dL Microbiology Date/Time Source Procedure Growth Status 03/07/25 20:36 Urine - [place] Urine Culture - Final Yeast, not Rekha albicans Complete 03/06/25 11:25 Blood Blood Culture - Final NO GROWTH AFTER 5 DAYS OF INCUBATION. Complete 03/03/25 16:40 Sputum Gram Stain - Final Complete 03/03/25 16:40 Sputum Respiratory Culture - Final Complete 02/21/25 09:30 Nose MRSA Screen - Final Complete Labs and/or images reviewed: Labs reviewed by me, Image(s) reviewed by me Problem List/Assessment/Plan Problem List/Assessment/Plan Neurology #Metabolic encephalopathy due to sepsis On fentanyl and propofol Cardiovascular #Acute on chronic diastolic CHF with RV failure #Pulmonary hypertension, class 2 vs 3, moderate-severe #NSTEMI likely type 2 #Atrial fibrillation with rapid ventricular rate #Tricuspid regurgitation, atsdwpyc-ko-whfhlx degree #Pericardial effusion On hemodialysis as needed Cardiology following Held Lovenox 1mg/kg qd due to thrombocytopenia Pulmonology #Acute on chronic hypoxic and hypercarbic respiratory failure, on mechanical ventilator, s/p trachostomy #Obstructive sleep apnea #Obesity hypoventilation syndrome #Respiratory acidosis, compensated #Pneumonia, gram (+) vs gram (-), atypicals #COPD exacerbation #Mucous plugs s/p bronch 03/03/25 On MV: FIO2: 35%. PEEP: 5. RR: 26. TV: 450ml DuoNebs q6hrs Cefepime IV Tracheostomy today by dr. forman Nephrology #AN, likely ATN Monitor, continue HD Nephrology following Endocrinology #Morbid obesity Gastroenterology #Bowel distention, possible SBO, ileus #Constipation Reviewed KUB, cannot fit CAT scan Consulted GI for decompression, performed on 03/07/25 intrabdominal pressure down from 19-13 to 8 today 03/11/25 tube feeding: Glucerna #Transaminitis, likely due to sepsis Monitor, trending down Hematology and Oncology #Thrombocytopenia likely due to sepsis monitor #Anemia normocytic normochromic Monitor, currently stable Infectious Disease #Septic shock due to Pneumonia, gram (+) vs gram (-), atypicals #UTI, complicated, growing VRE possible colonization #Fungal UTI Micafungin iv Dermatology X Gynecology #Vaginal bleeding Consulted RESEARCH GEOLOGIST, bleeding intermittently Pelvic US: Unable to visualize uterus and both ovaries. DVT ppx Lovenox PUD ppx Protonix Drips Levo 10 Vasopressin Fent Propofol Lines PICC line 03/06/25 PRITI right, non-tunneled dialysis 03/03/25 ReIntubated 03/03/25 Intubated 1st 02/20, extubated 03/01, tracheostomy 03/12/25 Updated family member on patient's current status. Had a discussion with spouse about tracheostomy, he wants to purse it. consulted [facility] for [facility] Goals of care were discussed for over 30 minutes. FULL CODE. Critical care time spent excluding procedures was 83 mins Case was discussed with Dr. Holley Plan discussed with: Spouse, Other (RN) My Orders My Orders Orders - NENA ZHOU RESIDENT Procedure Category Date Status Time Micafungin Sodium PHA 03/13/25 In Process (Mycamine) 10:00 Micafungin Sodium PHA 03/12/25 In Process (Mycamine) 16:45 Complete Blood Count LAB 03/13/25 Verified 04:00 Comprehensive LAB 03/13/25 Verified Metabolic Panel 04:00 Magnesium LAB 03/13/25 Verified 04:00 Chest Portable XY 03/13/25 Verified 04:00 Abg W/ Co-Ox RT 03/13/25 Verified 04:00 Dietary Evaluation Review Comments: 1. Disagree with current TF orders, change to Vital HP @ 40 ml/hr continuously 2. Provide free water flushes of 30 ml Q8 hrs (90 ml total); adjust PRN 3. Monitor BMP/lytes and replete to WNL 4. When appropriate for oral diet, recommend Cardiac diet as tolerated TF Provision: TF at goal to provide 960 ml total volume, 960 kcal (+958 kcal via propofol = 1918 kcal), 84 gm pro, 0 gm fiber, 107 gm CHO, 801 ml H20 (meets 100% est. kcal needs, 100% est. pro needs) Expected Outcomes/Goals: Improved nutritional status, hemodynamic stability. Date of Service: Mar 12, 2025 Billing Provider: MARY LOU HOLLEY MD Common Visit Codes: 00111-[id number] CARE 30-74 MIN, [id number] CARE-EACH +30MIN NENA ZHOU Mar 12, 2025 17:37 MARY LOU HOLLEY MD Mar 13, 2025 14:23
[2025-03-12] MEDS: MICAFUNGIN SODIUM 100 MG in SODIUM CHL 0.9% 100 ML IV ONE (18:43)
[2025-03-12 20:21] LABS: Hematocrit 28.3 % (36.0-46.0); Hemoglobin 8.7 g/dL (12.2-16.2)
[2025-03-13] VITALS (109 sets, daily range): BP systolic 55–136; BP diastolic 26–74; PULSE 76–150; RESP 15–27; TEMP 98–99.1; O2SAT 84–100
[2025-03-13 03:47] LABS: Basophils # (auto) 0 10 ^3/uL (0-0.2); Eosinophils # (auto) 0.1 10 ^3/uL (0-0.8); Hemoglobin 7.9 g/dL (12.2-16.2); Lymphocytes # (auto) 0.5 10 ^3/uL (0.4-5.4); Mean Corpuscular Volume 92.9 fL (80.0-100.0); Neutrophils # (auto) 3.7 10 ^3/uL (1.6-8.6)
[2025-03-13 03:51] LABS: Basophils % (auto) 0.6 % (0.0-2.0); Eosinophils % (auto) 1.7 % (0.0-7.0); Hematocrit 24.1 % (36.0-46.0); Lymphocytes % (auto) 11.5 % (10.0-50.0); Mean Corpuscular Hemoglobin 30.5 pg (28.0-32.0); Mean Corpuscular Hgb Conc. 32.8 g/dL (32.0-36.0); Monocytes # (auto) 0.3 10 ^3/uL (0-1.3); Monocytes % (auto) 7.4 % (0.0-12.0); Neutrophils % (auto) 78.8 % (37.0-80.0); Nucleated Red Blood Cells % 0.3 %; Platelet Count (auto) 48 10^3/uL (140-450); Red Cell Distribution Width 19.5 % (11.8-14.3); White Blood Cell 4.7 10^3/uL (4.4-10.8)
[2025-03-13 04:09] LABS: Alanine Aminotransferase 12 U/L (7-40); Anion Gap 16 (5-15); BUN/Creatinine Ratio 15.6 (10.0-20.0); Bilirubin, Total 0.6 mg/dL (0.2-1.0); Calcium 9.1 mg/dL (8.7-10.4); Carbon Dioxide 23 mmol/L (20-31); Magnesium 1.8 mg/dL (1.6-2.6); Phosphorus 2.4 mg/dL (2.4-5.1)
[2025-03-13 04:49] LABS: Alkaline Phosphatase 139 U/L (46-116); Aspartate Aminotransferase 10 U/L (13-40); Blood Urea Nitrogen 41 mg/dL (9-23); Chloride 96 mmol/L (98-107); Glucose 119 mg/dL (74-106); Potassium 3.5 mmol/L (3.5-5.1); Sodium 135 mmol/L (136-145)
--- NOTE | 2025-03-13 05:01 | DVH ---
CHEST RADIOGRAPH Indication: sob Technique: Single frontal view of the chest was obtained Comparison: XY CHEST PORTABLE on DOS: 03/12/25 FINDINGS: Lines and Tubes: Tracheostomy tube is unchanged. Right central venous catheter terminates in the sup erior vena cava. The enteric tube courses below the left hemidiaphragm and the tip extends outside th e field of view. Lungs: Patchy diffuse bilateral consolidation. Pleura: No effusion. No pneumothorax. Cardiomediastinal contours: Cardiomegaly. Bones: No acute osseous abnormality. IMPRESSION: 1. No significant interval change.
[2025-03-13 06:40] LABS: Base Excess 0.1 mmol/L (-2.0-3.0)
[2025-03-13] MEDS: fentaNYL Drip 2500mCg/250mlNS 250 ML IV SCH (06:51)
[2025-03-13] MEDS: SODIUM CHL 0.9% 1000 ML BAG XX ONE (07:45)
[2025-03-13 08:39] LABS: Base Excess -1.6 mmol/L (-2.0-3.0)
[2025-03-13] MEDS ORDERED: POTASSIUM CHL 20MEQ/100ML 100 ML IV SCH (10:00)
[2025-03-13] MEDS: MAGNESIUM SULFATE 1GM/100ML 100 ML IV ONE ×2 (10:03→12:29)
[2025-03-13] MEDS: POTASSIUM CHL 20MEQ/50ML 100 ML IV ONE (10:04)
[2025-03-13] MEDS: POTASSIUM CHL 20MEQ/100ML 50 ML IV SCH (10:05)
[2025-03-13] MEDS: MICAFUNGIN SODIUM 100 MG in SODIUM CHL 0.9% 100 ML IV SCH (12:14)
--- NOTE | 2025-03-13 14:24 | DVHPN2 ---
Progress Note - Dictate Date Seen: Mar 13, 2025 Medical Necessity Reason Pt with a Central, PICC or Fol: Yes The following are medically ne: Serrano Catheter Reason for serrano catheter: Strict I&O Subjective patient is S/P tracheostomy placement yesterday Last bowel movement recorded his on the Abdomen is softer and less distended vital signs Vital Sign Date Time Temp Pulse Resp B/P (MAP) Pulse Ox O2 Delivery O2 Flow Rate FiO2 03/13/25 12:53 93 20 98/51 (67) 96 30 03/13/25 06:00 Mechanical Ventilator+ 03/13/25 04:30 98.8 209.8 Total Intake and Output 03/12/25 03/12/25 03/13/25 15:00 23:00 07:00 Intake Total 404.694 ml 473.758 ml 418.211 ml Output Total 75 ml 25 ml Balance 404.694 ml 398.758 ml 393.211 ml medications Current Medications Medications Dose Ordered Sig/Adolfo Route Start Time Stop Time Status Last Admin Dose Admin Nitroglycerin 0.4 mg Q5MINP PRN SL 02/19/25 15:15 Ipratropium [place] 0.5 mg Q6HR NEB 02/19/25 18:00 03/13/25 12:53 0.5 MG Dextrose 50 ml UD PRN IV 02/22/25 07:15 Cancel Pantoprazole Sodium 40 mg DAILY IV 02/26/25 10:00 03/13/25 10:08 40 MG Levalbuterol HCl 1.25 mg Q6HR NEB 03/02/25 18:00 03/13/25 12:53 1.25 MG Midazolam HCl 50 ml @ 1 mls/hr Q24H IV 03/03/25 16:15 03/04/25 06:38 6 MLS/HR Cefepime HCl 50 ml @ 12.5 mls/hr HS IV 03/03/25 22:00 03/12/25 21:34 12.5 MLS/HR Epoetin Javan-epbx 10,000 unit 2XW SC 03/04/25 21:00 03/13/25 12:21 10,000 UNIT Enoxaparin Sodium 140 mg DAILY SC 03/05/25 10:00 UNV Diagnostic Test (Pha) 1 strip Q6HR 03/05/25 12:00 03/13/25 12:22 1 STRIP Insulin Human Regular Q6HR SC 03/05/25 12:00 03/12/25 06:02 2 UNITS Dextrose 50 ml UD PRN IV 03/05/25 07:30 Sodium Chloride 10 ml QSHIFT@10,22 IV 03/06/25 10:00 03/13/25 10:08 10 ML Norepinephrine Bitartrate 32 mg/ Sodium Chloride 250 ml @ 0.938 mls/ hr Q24H IV 03/07/25 09:00 03/12/25 22:40 6.563 MLS/HR Vasopressin 20 units/Sodium Chloride 100 ml @ 9 mls/hr Q11H7M IV 03/07/25 09:00 03/08/25 05:21 9 MLS/HR Metoclopramide HCl 5 mg Q8HPRN IV 03/07/25 14:00 03/13/25 13:43 5 MG Albumin Human 50 ml @ 100 mls/hr ENRIQUE PRN IV 03/08/25 14:30 03/13/25 14:29 Cancel Enteral Nutritional Formula 1,000 ml 20ML/HR GT 03/09/25 23:30 03/11/25 08:22 1,000 ML Propofol 100 ml @ 4.23 mls/hr [id number] IV 03/11/25 12:00 03/13/25 11:45 29.61 MLS/HR Micafungin Sodium 100 mg/Sodium Chloride 100 ml @ 100 mls/hr DAILY IV 03/13/25 10:00 03/13/25 12:14 100 MLS/HR Fentanyl Citrate 250 ml @ 2.5 mls/hr Q24H IV 03/13/25 06:30 03/13/25 06:51 15 MLS/HR Potassium Chloride 100 ml @ 50 mls/hr Q2H IV 03/13/25 10:00 03/13/25 13:59 UNV objective VITAL SIGNS: She is on ventilator, morbidly obese. GENERAL: CRISTIANE No cyanosis or jaundice.; NG tube output is minimal and bilious clear NECK: Supple, nontender with no thyromegaly, lymphadenopathy. CHEST AND LUNGS: Relatively clear.decreased BS at bases ABDOMEN: soft less Distended, obese; hypoactive bowel sounds RECTAL: Reported no fecal impaction and no stool in the vault laboratory and microbiology Laboratory Tests 03/13/25 03:30 Test 03/13/25 03:30 Range/Units Serum Glucose 119 H 74-106 mg/dL Problems(with codes): (1) Gaseous abdominal distention (2) CHF (congestive heart failure) (3) Morbid obesity (4) Acute on chronic diastolic heart failure (5) Atrial fibrillation (6) Non-STEMI (non-ST elevated myocardial infarction) Prognosis Plan Discharge planning is in progress with possible transferred to [place] I will be out of town until the if GI services are required please contact [facility] on-call Dietary Evaluation Review Comments: 1. Disagree with current TF orders, change to Vital HP @ 40 ml/hr continuously 2. Provide free water flushes of 30 ml Q8 hrs (90 ml total); adjust PRN 3. Monitor BMP/lytes and replete to WNL 4. When appropriate for oral diet, recommend Cardiac diet as tolerated TF Provision: TF at goal to provide 960 ml total volume, 960 kcal (+958 kcal via propofol = 1918 kcal), 84 gm pro, 0 gm fiber, 107 gm CHO, 801 ml H20 (meets 100% est. kcal needs, 100% est. pro needs) Expected Outcomes/Goals: Improved nutritional status, hemodynamic stability. Plan discussed with: Other (None) ROLAN SAHA MD Mar 13, 2025 14:24
--- NOTE | 2025-03-13 16:29 | DVHPN2 ---
Progress Note Date Seen: Mar 13, 2025 Medical Necessity Reason Pt with a Central, PICC or Fol: Yes The following are medically ne: Serrano Catheter Reason for serrano catheter: Strict I&O Subjective Patient reports: Other Review of Systems: RESPIRATORY:Abnormal Objective vital signs Vital Sign Date Time Temp Pulse Resp B/P (MAP) Pulse Ox O2 Delivery O2 Flow Rate FiO2 03/13/25 15:47 107 20 84/42 (56) 96 30 03/13/25 14:00 Mechanical Ventilator+ 03/13/25 12:00 98.0 98.0 Total Intake and Output 03/12/25 03/12/25 03/13/25 14:59 22:59 06:59 Intake Total 408.444 ml 470.945 ml 469.384 ml Output Total 75 ml 25 ml Balance 408.444 ml 395.945 ml 444.384 ml medications Current Medications Medications Dose Ordered Sig/Adolfo Route Start Time Stop Time Status Last Admin Dose Admin Nitroglycerin 0.4 mg Q5MINP PRN SL 02/19/25 15:15 Ipratropium [place] 0.5 mg Q6HR NEB 02/19/25 18:00 03/13/25 12:53 0.5 MG Dextrose 50 ml UD PRN IV 02/22/25 07:15 Cancel Pantoprazole Sodium 40 mg DAILY IV 02/26/25 10:00 03/13/25 10:08 40 MG Levalbuterol HCl 1.25 mg Q6HR NEB 03/02/25 18:00 03/13/25 12:53 1.25 MG Midazolam HCl 50 ml @ 1 mls/hr Q24H IV 03/03/25 16:15 03/04/25 06:38 6 MLS/HR Cefepime HCl 50 ml @ 12.5 mls/hr HS IV 03/03/25 22:00 03/12/25 21:34 12.5 MLS/HR Epoetin Javan-epbx 10,000 unit 2XW SC 03/04/25 21:00 03/13/25 12:21 10,000 UNIT Enoxaparin Sodium 140 mg DAILY SC 03/05/25 10:00 UNV Diagnostic Test (Pha) 1 strip Q6HR 03/05/25 12:00 03/13/25 12:22 1 STRIP Insulin Human Regular Q6HR SC 03/05/25 12:00 03/12/25 06:02 2 UNITS Dextrose 50 ml UD PRN IV 03/05/25 07:30 Sodium Chloride 10 ml QSHIFT@10,22 IV 03/06/25 10:00 03/13/25 10:08 10 ML Norepinephrine Bitartrate 32 mg/ Sodium Chloride 250 ml @ 0.938 mls/ hr Q24H IV 03/07/25 09:00 03/12/25 22:40 6.563 MLS/HR Vasopressin 20 units/Sodium Chloride 100 ml @ 9 mls/hr Q11H7M IV 03/07/25 09:00 03/08/25 05:21 9 MLS/HR Metoclopramide HCl 5 mg Q8HPRN IV 03/07/25 14:00 03/13/25 13:43 5 MG Albumin Human 50 ml @ 100 mls/hr ENRIQUE PRN IV 03/08/25 14:30 03/13/25 14:29 Cancel Enteral Nutritional Formula 1,000 ml 20ML/HR GT 03/09/25 23:30 03/11/25 08:22 1,000 ML Propofol 100 ml @ 4.23 mls/hr [id number] IV 03/11/25 12:00 03/13/25 11:45 29.61 MLS/HR Micafungin Sodium 100 mg/Sodium Chloride 100 ml @ 100 mls/hr DAILY IV 03/13/25 10:00 03/13/25 12:14 100 MLS/HR Fentanyl Citrate 250 ml @ 2.5 mls/hr Q24H IV 03/13/25 06:30 03/13/25 06:51 15 MLS/HR Potassium Chloride 100 ml @ 50 mls/hr Q2H IV 03/13/25 10:00 03/13/25 13:59 UNV Examination: GENERAL:Abnormal, LUNGS:Abnormal, ABDOMEN:Abnormal laboratory and microbiology Laboratory Tests 03/13/25 03:30 Test 03/13/25 03:30 Range/Units Serum Glucose 119 H 74-106 mg/dL Microbiology Date/Time Source Procedure Growth Status 03/07/25 20:36 Urine - [place] Urine Culture - Final Yeast, not Rekha albicans Complete 03/06/25 11:25 Blood Blood Culture - Final NO GROWTH AFTER 5 DAYS OF INCUBATION. Complete 03/03/25 16:40 Sputum Gram Stain - Final Complete 03/03/25 16:40 Sputum Respiratory Culture - Final Complete 02/21/25 09:30 Nose MRSA Screen - Final Complete Problem List/Assessment/Plan Problem List/Assessment/Plan Acute kidney injury due to shock-> acute HD ckd 3a respiratory failure-> s/p trach CHF w/ pulm HTN Illeus COPD, morbid obesity sepsis Iron deficiency anemia thrombocytopenia stable vitals, labs reviewed HD tomorrow IV iron, PRBC today ABX as per primary team Plan discussed with: Other My Orders My Orders Orders - AMINAH HAIDER MD Procedure Category Date Status Time Hemodialysis Orders ORDERS 03/13/25 Transmitted 07:37 Dialysis Nursing THEO 03/13/25 In Process Message 07:37 Document Fluid Input THEO 03/13/25 In Process And Outpu 07:37 Communication Order ORDERS 03/13/25 Transmitted 07:39 Dietary Evaluation Review Comments: 1. Disagree with current TF orders, change to Vital HP @ 40 ml/hr continuously 2. Provide free water flushes of 30 ml Q8 hrs (90 ml total); adjust PRN 3. Monitor BMP/lytes and replete to WNL 4. When appropriate for oral diet, recommend Cardiac diet as tolerated TF Provision: TF at goal to provide 960 ml total volume, 960 kcal (+958 kcal via propofol = 1918 kcal), 84 gm pro, 0 gm fiber, 107 gm CHO, 801 ml H20 (meets 100% est. kcal needs, 100% est. pro needs) Expected Outcomes/Goals: Improved nutritional status, hemodynamic stability. Critical Care Time (mins): 33 AMINAH HAIDER MD Mar 13, 2025 16:29
--- NOTE | 2025-03-13 17:31 | DVHPNRES ---
Progress Note Date Seen: Mar 13, 2025 Resident Creating Document: NENA ZHOU RESIDENT Medical Necessity Reason Pt with a Central, PICC or Fol: Yes The following are medically ne: Serrano Catheter Reason for serrano catheter: Strict I&O Subjective Review of Systems Patient was seen and examined at bedside. She remains on mechanical ventilator, FiO2 was 35%. Peep 5. Respiratory rate still at 26. Patient on Levophed at 10, she is on fentanyl and Versed. ordered panculture. 1 unit rbc pack ordered check h&h Objective vital signs Vital Sign Date Time Temp Pulse Resp B/P (MAP) Pulse Ox O2 Delivery O2 Flow Rate FiO2 03/13/25 15:47 107 20 84/42 (56) 96 30 03/13/25 14:00 Mechanical Ventilator+ 03/13/25 12:00 98.0 98.0 Total Intake and Output 03/12/25 03/12/25 03/13/25 15:00 23:00 07:00 Intake Total 404.694 ml 473.758 ml 462.821 ml Output Total 75 ml 25 ml Balance 404.694 ml 398.758 ml 437.821 ml medications Current Medications Medications Dose Ordered Sig/Adolfo Route Start Time Stop Time Status Last Admin Dose Admin Nitroglycerin 0.4 mg Q5MINP PRN SL 02/19/25 15:15 Ipratropium [place] 0.5 mg Q6HR NEB 02/19/25 18:00 03/13/25 12:53 0.5 MG Dextrose 50 ml UD PRN IV 02/22/25 07:15 Cancel Pantoprazole Sodium 40 mg DAILY IV 02/26/25 10:00 03/13/25 10:08 40 MG Levalbuterol HCl 1.25 mg Q6HR NEB 03/02/25 18:00 03/13/25 12:53 1.25 MG Midazolam HCl 50 ml @ 1 mls/hr Q24H IV 03/03/25 16:15 03/04/25 06:38 6 MLS/HR Epoetin Javan-epbx 10,000 unit 2XW SC 03/04/25 21:00 03/13/25 12:21 10,000 UNIT Enoxaparin Sodium 140 mg DAILY SC 03/05/25 10:00 UNV Diagnostic Test (Pha) 1 strip Q6HR 03/05/25 12:00 03/13/25 12:22 1 STRIP Insulin Human Regular Q6HR SC 03/05/25 12:00 03/12/25 06:02 2 UNITS Dextrose 50 ml UD PRN IV 03/05/25 07:30 Sodium Chloride 10 ml QSHIFT@10,22 IV 03/06/25 10:00 03/13/25 10:08 10 ML Norepinephrine Bitartrate 32 mg/ Sodium Chloride 250 ml @ 0.938 mls/ hr Q24H IV 03/07/25 09:00 03/12/25 22:40 6.563 MLS/HR Vasopressin 20 units/Sodium Chloride 100 ml @ 9 mls/hr Q11H7M IV 03/07/25 09:00 03/08/25 05:21 9 MLS/HR Metoclopramide HCl 5 mg Q8HPRN IV 03/07/25 14:00 03/13/25 13:43 5 MG Albumin Human 50 ml @ 100 mls/hr ENRIQUE PRN IV 03/08/25 14:30 03/13/25 14:29 Cancel Enteral Nutritional Formula 1,000 ml 20ML/HR GT 03/09/25 23:30 03/11/25 08:22 1,000 ML Propofol 100 ml @ 4.23 mls/hr [id number] IV 03/11/25 12:00 03/13/25 11:45 29.61 MLS/HR Micafungin Sodium 100 mg/Sodium Chloride 100 ml @ 100 mls/hr DAILY IV 03/13/25 10:00 03/13/25 12:14 100 MLS/HR Fentanyl Citrate 250 ml @ 2.5 mls/hr Q24H IV 03/13/25 06:30 03/13/25 06:51 15 MLS/HR Potassium Chloride 100 ml @ 50 mls/hr Q2H IV 03/13/25 10:00 03/13/25 13:59 UNV Piperacillin Sod/ Tazobactam Sod 50 ml @ 12.5 mls/hr Q12HR IV 03/13/25 22:00 UNV Examination Physical examination as below: General: Mechanically ventilated, tracheostomy HEENT: Head is normocephalic and atraumatic. Pupils are equal, round, and reactive to light. Neck: Supple with no cervical lymphadenopathy. Heart: Regular rate without murmur, rub, or gallop. Lungs: Mild bilateral diffuse crackles and scattered wheezing Abdomen: No external sign of injury. Bowel sounds are present. Abdomen is soft, nontender. Distended Extremities: Strong peripheral pulses. There is no clubbing, no cyanosis, and no edema. Skin: No rash. Neurologic: Sedated laboratory and microbiology Laboratory Tests 03/13/25 03:30 Test 03/13/25 03:30 Range/Units Serum Glucose 119 H 74-106 mg/dL Microbiology Date/Time Source Procedure Growth Status 03/07/25 20:36 Urine - [place] Urine Culture - Final Yeast, not Rekha albicans Complete 03/06/25 11:25 Blood Blood Culture - Final NO GROWTH AFTER 5 DAYS OF INCUBATION. Complete 03/03/25 16:40 Sputum Gram Stain - Final Complete 03/03/25 16:40 Sputum Respiratory Culture - Final Complete 02/21/25 09:30 Nose MRSA Screen - Final Complete Labs and/or images reviewed: Labs reviewed by me, Image(s) reviewed by me Problem List/Assessment/Plan Problem List/Assessment/Plan Neurology #Metabolic encephalopathy due to sepsis On fentanyl and propofol, waning down Cardiovascular #Acute on chronic diastolic CHF with RV failure #Pulmonary hypertension, class 2 vs 3, moderate-severe #NSTEMI likely type 2 #Atrial fibrillation with rapid ventricular rate #Tricuspid regurgitation, iydsovar-[id number] degree #Pericardial effusion On hemodialysis as needed Cardiology following Held Lovenox 1mg/kg qd due to thrombocytopenia and active bleeding Pulmonology #Acute on chronic hypoxic and hypercarbic respiratory failure, on mechanical ventilator, s/p trachostomy #Obstructive sleep apnea #Obesity hypoventilation syndrome #Respiratory acidosis, compensated #Pneumonia, gram (+) vs gram (-), atypicals #COPD exacerbation #Mucous plugs s/p bronch 03/03/25 On MV: FIO2: 35%. PEEP: 5. RR: 26. TV: 450ml DuoNebs q6hrs zosyn IV Tracheostomy yesterday by dr. dickson gordon trial Nephrology #AN, likely ATN Monitor, continue HD Nephrology following Endocrinology #Morbid obesity Gastroenterology #Bowel distention, possible SBO, ileus #Constipation Reviewed KUB, cannot fit CAT scan Consulted GI for decompression, performed on 03/07/25 intrabdominal pressure down from 19-13 to 8 on 03/11/25 tube feeding: Glucerna #Transaminitis, likely due to sepsis Monitor, trending down Hematology and Oncology #Thrombocytopenia likely due to sepsis monitor ordered desmopressin #Anemia normocytic normochromic Monitor, currently stable Infectious Disease #Septic shock due to Pneumonia, gram (+) vs gram (-), atypicals Zosyn IV #UTI, complicated, growing VRE possible colonization #Fungal UTI Micafungin iv panculture ordered Dermatology X Gynecology #Vaginal bleeding Consulted [employer], bleeding intermittently Pelvic US: Unable to visualize uterus and both ovaries. DVT ppx Lovenox PUD ppx Protonix Drips Levo 10 Vasopressin Fent Propofol Lines PICC line 03/06/25 PRITI right, non-tunneled dialysis 03/03/25 ReIntubated 03/03/25 Intubated 1st 02/20, extubated 03/01, tracheostomy 03/12/25 Updated family member on patient's current status. Had a discussion with spouse about tracheostomy, he wants to purse it. consulted [facility] for LT[facility] Goals of care were discussed for over 30 minutes. FULL CODE. Critical care time spent excluding procedures , including dw was 81 mins Case was discussed with Dr. Holley Plan discussed with: Spouse, Other (RN) My Orders My Orders Orders - NENA ZHOU RESIDENT Procedure Category Date Status Time Chest Portable XY 03/13/25 Resulted 04:00 Abg W/ Co-Ox RT 03/13/25 Logged 04:00 Ventilator Orders RT 03/13/25 Transmitted 06:51 Abg W/ Co-Ox RT 03/13/25 Logged 08:00 Piperacillin-Tazob PHA 03/13/25 Logged 2.25gm (Zosyn 2.25gm) 22:00 Cortisol Am LAB 03/14/25 Verified 08:00 Complete Blood Count LAB 03/14/25 Verified 04:00 Comprehensive LAB 03/14/25 Verified Metabolic Panel 04:00 Magnesium LAB 03/14/25 Verified 04:00 Free T3 LAB 03/14/25 Verified 04:00 Free T4 (Free LAB 03/14/25 Verified Thyroxine) 04:00 Thyroid Stimulating LAB 03/14/25 Verified Hormone 04:00 Lactic Acid W/ Reflex LAB 03/13/25 Logged Order 16:43 Urinalysis LAB 03/13/25 Logged 16:43 Urine Bacterial MINA 03/13/25 Logged Culture 16:43 Blood Culture MINA 03/13/25 Logged 16:43 Respiratory Culture MINA 03/13/25 Logged W/ Gs 16:43 Dietary Evaluation Review Comments: 1. Disagree with current TF orders, change to Vital HP @ 40 ml/hr continuously 2. Provide free water flushes of 30 ml Q8 hrs (90 ml total); adjust PRN 3. Monitor BMP/lytes and replete to WNL 4. When appropriate for oral diet, recommend Cardiac diet as tolerated TF Provision: TF at goal to provide 960 ml total volume, 960 kcal (+958 kcal via propofol = 1918 kcal), 84 gm pro, 0 gm fiber, 107 gm CHO, 801 ml H20 (meets 100% est. kcal needs, 100% est. pro needs) Expected Outcomes/Goals: Improved nutritional status, hemodynamic stability. Date of Service: Mar 13, 2025 Billing Provider: MARY LOU HOLLEY MD Common Visit Codes: 76626-[id number] CARE 30-74 MIN, 11507-[id number] CARE-EACH +30MIN NENA ZHOU RESIDENT Mar 13, 2025 17:31 MARY LOU HOLLEY MD Mar 14, 2025 10:28
[2025-03-13] MEDS ORDERED: LABETALOL HCL 20 MG/4 ML VL IV ONE (19:00)
[2025-03-13] MEDS: LABETALOL HCL 20 MG/4 ML VL IV ONE ×3 (20:29→22:45)
[2025-03-13] MEDS: DESMOPRESSIN INJECTION 20 MCG in SODIUM CHL 0.9% 50 ML IV ONE (22:39)
[2025-03-13] MEDS: PIPERACILLIN-TAZOB 2.25GM 50 ML IV SCH (23:18)
[2025-03-14] VITALS (116 sets, daily range): BP systolic 85–147; BP diastolic 44–104; PULSE 27–147; RESP 8–46; TEMP 97.8–99.3; O2SAT 92–100
[2025-03-14 04:30] LABS: Anion Gap 15 (5-15); BUN/Creatinine Ratio 14.4 (10.0-20.0); Calcium 8.9 mg/dL (8.7-10.4); Carbon Dioxide 22 mmol/L (20-31); Magnesium 2.1 mg/dL (1.6-2.6); Potassium 4.2 mmol/L (3.5-5.1)
[2025-03-14 04:31] LABS: Bilirubin, Total 0.5 mg/dL (0.2-1.0)
[2025-03-14 04:44] LABS: Basophils # (auto) 0 10 ^3/uL (0-0.2); Basophils % (auto) 0.4 % (0.0-2.0); Hemoglobin 8.6 g/dL (12.2-16.2); Lymphocytes # (auto) 0.4 10 ^3/uL (0.4-5.4); Monocytes # (auto) 0.4 10 ^3/uL (0-1.3); Neutrophils # (auto) 3.9 10 ^3/uL (1.6-8.6); White Blood Cell 4.8 10^3/uL (4.4-10.8)
[2025-03-14 04:45] LABS: Free T3 0.46 pg/mL (2.3-4.2); Free T4 (Free Thyroxine) 0.62 ng/dL (0.89-1.76)
[2025-03-14 04:46] LABS: Eosinophils # (auto) 0.1 10 ^3/uL (0-0.8); Eosinophils % (auto) 1.4 % (0.0-7.0); Hematocrit 26.7 % (36.0-46.0); Lymphocytes % (auto) 7.9 % (10.0-50.0); Mean Corpuscular Hgb Conc. 32.3 g/dL (32.0-36.0); Mean Corpuscular Volume 92.9 fL (80.0-100.0); Monocytes % (auto) 7.8 % (0.0-12.0); Neutrophils % (auto) 82.5 % (37.0-80.0); Nucleated Red Blood Cells % 0.1 %; Platelet Count (auto) 53 10^3/uL (140-450); Red Blood Cells 2.87 10^6/uL (4.0-5.20)
[2025-03-14 05:00] LABS: Alanine Aminotransferase < 9 U/L (7-40); Albumin 2.8 g/dL (3.2-4.8); Alkaline Phosphatase 150 U/L (46-116); Aspartate Aminotransferase 8 U/L (13-40); Blood Urea Nitrogen 42 mg/dL (9-23); Chloride 97 mmol/L (98-107); Glucose 117 mg/dL (74-106); Sodium 134 mmol/L (136-145); Total Protein 4.8 g/dL (5.7-8.2)
--- NOTE | 2025-03-14 06:02 | DVH ---
EXAM: XR Chest, 1 View CLINICAL INDICATION: sob TECHNIQUE: Frontal view of the chest. COMPARISON: XY CHEST PORTABLE on DOS: 03/13/25, XY CHEST PORTABLE on DOS: 03/12/25, XY CHEST PORTABLE on DOS: 03/12/25, XY CHEST XRAY 1 VIEW on DOS: 03/11/25, XY CHEST XRAY 1 VIEW on DOS: 03/10/25 FINDINGS: LUNGS AND PLEURAL SPACES: Mild congestive heart failure. No consolidation. No pneumothorax. HEART: Unremarkable. No cardiomegaly. MEDIASTINUM: Unremarkable. Normal mediastinal contour. BONES/JOINTS: Unremarkable. No acute fracture. TUBES, LINES AND DEVICES: Right internal jugular central venous catheter tip in the superior vena c esdras. Tracheostomy tube in satisfactory position. Enteric tube tip in the stomach. OTHER FINDINGS: . IMPRESSION: Mild congestive heart failure.
[2025-03-14 06:32] LABS: Platelet Estimate Decreased
[2025-03-14] MEDS: LEVOTHYROXINE SODIUM 50 MCG TAB PO ONE (06:42)
[2025-03-14] MEDS: SODIUM CHL 0.9% 1000 ML BAG XX ONE (07:00)
[2025-03-14] MEDS: METOPROLOL TARTRATE 1MG/1ML-5ML VIAL IV ONE (08:56)
--- NOTE | 2025-03-14 09:33 | DVHPNRES ---
Progress Note Date Seen: Mar 14, 2025 Resident Creating Document: NENA ZHOU RESIDENT Medical Necessity Reason Pt with a Central, PICC or Fol: Yes The following are medically ne: Serrano Catheter Reason for serrano catheter: Strict I&O Subjective Review of Systems Patient was seen and examined at bedside. She remains on mechanical ventilator, FiO2 was 35%. Peep 5. Respiratory rate still at 26. Patient on Levophed at 4, she is off fentanyl and Versed. HD today transfused platelets Objective vital signs Vital Sign Date Time Temp Pulse Resp B/P (MAP) Pulse Ox O2 Delivery O2 Flow Rate FiO2 03/14/25 08:56 140 132/85 03/14/25 08:23 23 96 30 03/14/25 06:00 Mechanical Ventilator+ 03/14/25 04:01 99.3 99.3 Total Intake and Output 03/13/25 03/13/25 03/14/25 15:00 23:00 07:00 Intake Total 673.231 ml 417.816 ml 19.689 ml Output Total 75 ml 30 ml Balance 673.231 ml 342.816 ml -10.311 ml medications Current Medications Medications Dose Ordered Sig/Adolfo Route Start Time Stop Time Status Last Admin Dose Admin Nitroglycerin 0.4 mg Q5MINP PRN SL 02/19/25 15:15 Ipratropium [place] 0.5 mg Q6HR NEB 02/19/25 18:00 03/14/25 06:55 0.5 MG Dextrose 50 ml UD PRN IV 02/22/25 07:15 Cancel Pantoprazole Sodium 40 mg DAILY IV 02/26/25 10:00 03/13/25 10:08 40 MG Levalbuterol HCl 1.25 mg Q6HR NEB 03/02/25 18:00 03/14/25 06:55 1.25 MG Midazolam HCl 50 ml @ 1 mls/hr Q24H IV 03/03/25 16:15 03/04/25 06:38 6 MLS/HR Epoetin Javan-epbx 10,000 unit 2XW SC 03/04/25 21:00 03/13/25 12:21 10,000 UNIT Enoxaparin Sodium 140 mg DAILY SC 03/05/25 10:00 UNV Diagnostic Test (Pha) 1 strip Q6HR 03/05/25 12:00 03/14/25 06:44 1 STRIP Insulin Human Regular Q6HR SC 03/05/25 12:00 03/12/25 06:02 2 UNITS Dextrose 50 ml UD PRN IV 03/05/25 07:30 Sodium Chloride 10 ml QSHIFT@10,22 IV 03/06/25 10:00 03/13/25 22:43 10 ML Norepinephrine Bitartrate 32 mg/ Sodium Chloride 250 ml @ 0.938 mls/ hr Q24H IV 03/07/25 09:00 03/12/25 22:40 6.563 MLS/HR Vasopressin 20 units/Sodium Chloride 100 ml @ 9 mls/hr Q11H7M IV 03/07/25 09:00 03/08/25 05:21 9 MLS/HR Metoclopramide HCl 5 mg Q8HPRN IV 03/07/25 14:00 03/14/25 06:43 5 MG Albumin Human 50 ml @ 100 mls/hr ENRIQUE PRN IV 03/08/25 14:30 03/13/25 14:29 Cancel Enteral Nutritional Formula 1,000 ml 20ML/HR GT 03/09/25 23:30 03/11/25 08:22 1,000 ML Propofol 100 ml @ 4.23 mls/hr [id number] IV 03/11/25 12:00 03/13/25 11:45 29.61 MLS/HR Micafungin Sodium 100 mg/Sodium Chloride 100 ml @ 100 mls/hr DAILY IV 03/13/25 10:00 03/13/25 12:14 100 MLS/HR Fentanyl Citrate 250 ml @ 2.5 mls/hr Q24H IV 03/13/25 06:30 03/13/25 06:51 15 MLS/HR Potassium Chloride 100 ml @ 50 mls/hr Q2H IV 03/13/25 10:00 03/13/25 13:59 UNV Piperacillin Sod/ Tazobactam Sod 50 ml @ 12.5 mls/hr Q8HR IV 03/13/25 22:00 03/14/25 06:44 12.5 MLS/HR Levothyroxine Sodium 50 mcg QAM@0600 PO 03/15/25 06:00 Examination Physical examination as below: General: Mechanically ventilated, tracheostomy HEENT: Head is normocephalic and atraumatic. Pupils are equal, round, and reactive to light. Neck: Supple with no cervical lymphadenopathy. Heart: Regular rate without murmur, rub, or gallop. Lungs: Mild bilateral diffuse crackles and scattered wheezing Abdomen: No external sign of injury. Bowel sounds are present. Abdomen is soft, nontender. Distended Extremities: Strong peripheral pulses. There is no clubbing, no cyanosis, and no edema. Skin: No rash. laboratory and microbiology Laboratory Tests 03/14/25 03:22 Test 03/14/25 03:22 Range/Units Serum Glucose 117 H 74-106 mg/dL Microbiology Date/Time Source Procedure Growth Status 03/07/25 20:36 Urine - [place] Urine Culture - Final Yeast, not Rekha albicans Complete 03/06/25 11:25 Blood Blood Culture - Final NO GROWTH AFTER 5 DAYS OF INCUBATION. Complete 03/03/25 16:40 Sputum Gram Stain - Final Complete 03/03/25 16:40 Sputum Respiratory Culture - Final Complete 02/21/25 09:30 Nose MRSA Screen - Final Complete Labs and/or images reviewed: Labs reviewed by me, Image(s) reviewed by me Problem List/Assessment/Plan Problem List/Assessment/Plan Neurology #Metabolic encephalopathy due to sepsis On fentanyl and propofol, off Cardiovascular #Acute on chronic diastolic CHF with RV failure #Pulmonary hypertension, class 2 vs 3, moderate-severe #NSTEMI likely type 2 #Atrial fibrillation with rapid ventricular rate #Tricuspid regurgitation, igumbnls-ic-vumysp degree #Pericardial effusion On hemodialysis as needed Cardiology following Held Lovenox 1mg/kg qd due to thrombocytopenia and active bleeding Pulmonology #Acute on chronic hypoxic and hypercarbic respiratory failure, on mechanical ventilator, s/p tracheostomy #Obstructive sleep apnea #Obesity hypoventilation syndrome #Respiratory acidosis, compensated #Pneumonia, gram (+) vs gram (-), atypicals #COPD exacerbation #Mucous plugs s/p bronch 03/03/25 On nargis collar: FIO2: 30%. PEEP: 5. RR: 20. TV: 450ml DuoNebs q6hrs zosyn IV Tracheostomy yesterday by dr. dickson gordon trial Nephrology #AN, likely ATN Monitor, continue HD Nephrology following Endocrinology #Morbid obesity Gastroenterology #Bowel distention, possible SBO, ileus #Constipation Reviewed KUB, cannot fit CAT scan Consulted GI for decompression, performed on 03/07/25 intrabdominal pressure down from 19-13 to 8 on 03/11/25 tube feeding: Glucerna #Transaminitis, likely due to sepsis Monitor, trending down Hematology and Oncology #Thrombocytopenia likely due to sepsis monitor ordered desmopressin one time transfused 1 unit of platelets #Anemia normocytic normochromic Monitor, currently stable Infectious Disease #Septic shock due to Pneumonia, gram (+) vs gram (-), atypicals Zosyn IV #UTI, complicated, growing VRE possible colonization #Fungal UTI Micafungin iv panculture ordered Dermatology X Gynecology #Vaginal bleeding Consulted MANAGER ADOBE, bleeding intermittently Pelvic US: Unable to visualize uterus and both ovaries. DVT ppx Lovenox PUD ppx Protonix Drips Levo 10 Vasopressin Fent Propofol Lines PICC line 03/06/25 PRITI right, non-tunneled dialysis 03/03/25 ReIntubated 03/03/25 Intubated 02/20, extubated 03/01, tracheostomy 03/12/25 Updated family member on patient's current status. Had a discussion with spouse about tracheostomy, he wants to purse it. consulted [facility] for [facility], pending acceptance. report given to [place] doctor by Dr Holley Goals of care were discussed for over 30 minutes. FULL CODE. Critical care time spent excluding procedures was 81 mins Case was discussed with Dr. Holley Plan discussed with: Spouse, Other (RN) My Orders My Orders Orders - NENA ZHOU RESIDENT Procedure Category Date Status Time Piperacillin-Tazob PHA 03/13/25 In Process 2.25gm (Zosyn 2.25gm) 22:00 Cortisol Am LAB 03/14/25 Logged 08:00 Lactic Acid W/ Reflex LAB 03/13/25 Logged Order 16:43 Urinalysis LAB 03/13/25 Logged 16:43 Urine Bacterial MINA 03/13/25 Logged Culture 16:43 Blood Culture MINA 03/13/25 Logged 16:43 Respiratory Culture MINA 03/13/25 Logged W/ Gs 16:43 Chest Portable XY 03/14/25 Resulted 04:00 Abg W/ Co-Ox RT 03/14/25 Logged 04:00 Levothyroxine Tablet PHA 03/15/25 In Process (Synthroid Tablet) 06:00 Dietary Evaluation Review Comments: 1. Disagree with current TF orders, change to Vital HP @ 40 ml/hr continuously 2. Provide free water flushes of 30 ml Q8 hrs (90 ml total); adjust PRN 3. Monitor BMP/lytes and replete to WNL 4. When appropriate for oral diet, recommend Cardiac diet as tolerated TF Provision: TF at goal to provide 960 ml total volume, 960 kcal (+958 kcal via propofol = 1918 kcal), 84 gm pro, 0 gm fiber, 107 gm CHO, 801 ml H20 (meets 100% est. kcal needs, 100% est. pro needs) Expected Outcomes/Goals: Improved nutritional status, hemodynamic stability. Date of Service: Mar 14, 2025 Billing Provider: MARY LOU HOLLEY MD Common Visit Codes: 79968-[id number] CARE 30-74 MIN, 54244-HSYYDOAN CARE-EACH +30MIN NENA ZHOU Mar 14, 2025 09:33 MARY LOU HOLLEY MD Mar 16, 2025 21:18
--- NOTE | 2025-03-14 10:43 | DVHPN2 ---
Progress Note Date Seen: Mar 14, 2025 Medical Necessity Reason Pt with a Central, PICC or Fol: Yes The following are medically ne: Serrano Catheter Reason for serrano catheter: Strict I&O Objective vital signs Vital Sign Date Time Temp Pulse Resp B/P (MAP) Pulse Ox O2 Delivery O2 Flow Rate FiO2 03/14/25 10:22 137 20 93/61 (72) 97 30 03/14/25 08:20 Mechanical Ventilator+ 03/14/25 04:01 99.3 99.3 Total Intake and Output 03/13/25 03/13/25 03/14/25 15:00 23:00 07:00 Intake Total 673.231 ml 417.816 ml 71.564 ml Output Total 75 ml 30 ml Balance 673.231 ml 342.816 ml 41.564 ml medications Current Medications Medications Dose Ordered Sig/Adolfo Route Start Time Stop Time Status Last Admin Dose Admin Nitroglycerin 0.4 mg Q5MINP PRN SL 02/19/25 15:15 Ipratropium [place] 0.5 mg Q6HR NEB 02/19/25 18:00 03/14/25 06:55 0.5 MG Dextrose 50 ml UD PRN IV 02/22/25 07:15 Cancel Pantoprazole Sodium 40 mg DAILY IV 02/26/25 10:00 03/13/25 10:08 40 MG Levalbuterol HCl 1.25 mg Q6HR NEB 03/02/25 18:00 03/14/25 06:55 1.25 MG Midazolam HCl 50 ml @ 1 mls/hr Q24H IV 03/03/25 16:15 03/04/25 06:38 6 MLS/HR Epoetin Javan-epbx 10,000 unit 2XW SC 03/04/25 21:00 03/13/25 12:21 10,000 UNIT Enoxaparin Sodium 140 mg DAILY SC 03/05/25 10:00 UNV Diagnostic Test (Pha) 1 strip Q6HR 03/05/25 12:00 03/14/25 06:44 1 STRIP Insulin Human Regular Q6HR SC 03/05/25 12:00 03/12/25 06:02 2 UNITS Dextrose 50 ml UD PRN IV 03/05/25 07:30 Sodium Chloride 10 ml QSHIFT@, IV 03/06/25 10:00 03/13/25 22:43 10 ML Norepinephrine Bitartrate 32 mg/ Sodium Chloride 250 ml @ 0.938 mls/ hr Q24H IV 03/07/25 09:00 03/12/25 22:40 6.563 MLS/HR Metoclopramide HCl 5 mg Q8HPRN IV 03/07/25 14:00 03/14/25 06:43 5 MG Albumin Human 50 ml @ 100 mls/hr ENRIQUE PRN IV 03/08/25 14:30 03/13/25 14:29 Cancel Enteral Nutritional Formula 1,000 ml 20ML/HR GT 03/09/25 23:30 03/11/25 08:22 1,000 ML Propofol 100 ml @ 4.23 mls/hr [id number] IV 03/11/25 12:00 03/13/25 11:45 29.61 MLS/HR Micafungin Sodium 100 mg/Sodium Chloride 100 ml @ 100 mls/hr DAILY IV 03/13/25 10:00 03/13/25 12:14 100 MLS/HR Fentanyl Citrate 250 ml @ 2.5 mls/hr Q24H IV 03/13/25 06:30 03/13/25 06:51 15 MLS/HR Potassium Chloride 100 ml @ 50 mls/hr Q2H IV 03/13/25 10:00 03/13/25 13:59 UNV Piperacillin Sod/ Tazobactam Sod 50 ml @ 12.5 mls/hr Q8HR IV 03/13/25 22:00 03/14/25 06:44 12.5 MLS/HR Levothyroxine Sodium 50 mcg QAM@0600 PO 03/15/25 06:00 laboratory and microbiology Laboratory Tests 03/14/25 03:22 Test 03/14/25 03:22 Range/Units Serum Glucose 117 H 74-106 mg/dL Problem List/Assessment/Plan Problem List/Assessment/Plan 03/12/25 repeat tracheostomy(prior tracheostomy of ? age) ,accomplished with size 8 tracheostomy tube, cxr pending, report dictated 03/14/25 NO PROBLEMS WITH TRACHEOSTOMY, SITE CLEAN ,CXR UNCHANGED, WILL SIGN OFF, PLEASE RECALL IF NEEDED Plan discussed with: Other Dietary Evaluation Review Comments: 1. Disagree with current TF orders, change to Vital HP @ 40 ml/hr continuously 2. Provide free water flushes of 30 ml Q8 hrs (90 ml total); adjust PRN 3. Monitor BMP/lytes and replete to WNL 4. When appropriate for oral diet, recommend Cardiac diet as tolerated TF Provision: TF at goal to provide 960 ml total volume, 960 kcal (+958 kcal via propofol = 1918 kcal), 84 gm pro, 0 gm fiber, 107 gm CHO, 801 ml H20 (meets 100% est. kcal needs, 100% est. pro needs) Expected Outcomes/Goals: Improved nutritional status, hemodynamic stability. LILLI STANFORD MD Mar 14, 2025 10:43
[2025-03-14 10:55] LABS: Base Excess 2.1 mmol/L (-2.0-3.0)
[2025-03-14] MEDS ORDERED: METOPROLOL TARTRATE 25 MG TAB PO ONE (12:00)
[2025-03-14] MEDS ORDERED: METOPROLOL TARTRATE 25 MG TAB PO SCH (12:00)
--- NOTE | 2025-03-14 14:51 | DVHPN2 ---
Progress Note Date Seen: Mar 14, 2025 Medical Necessity Reason Pt with a Central, PICC or Fol: Yes The following are medically ne: Serrano Catheter Reason for serrano catheter: Strict I&O Subjective Patient reports: Other (intubated) Review of Systems: RESPIRATORY:Abnormal Objective vital signs Vital Sign Date Time Temp Pulse Resp B/P (MAP) Pulse Ox O2 Delivery O2 Flow Rate FiO2 03/14/25 14:27 112 20 112/67 (82) 97 30 03/14/25 12:00 98.0 98.0 03/14/25 12:00 Mechanical Ventilator+ Total Intake and Output 03/13/25 03/13/25 03/14/25 15:00 23:00 07:00 Intake Total 673.231 ml 417.816 ml 71.564 ml Output Total 75 ml 30 ml Balance 673.231 ml 342.816 ml 41.564 ml medications Current Medications Medications Dose Ordered Sig/Adolfo Route Start Time Stop Time Status Last Admin Dose Admin Nitroglycerin 0.4 mg Q5MINP PRN SL 02/19/25 15:15 Ipratropium [place] 0.5 mg Q6HR NEB 02/19/25 18:00 03/14/25 12:26 0.5 MG Dextrose 50 ml UD PRN IV 02/22/25 07:15 Cancel Pantoprazole Sodium 40 mg DAILY IV 02/26/25 10:00 03/14/25 11:28 40 MG Levalbuterol HCl 1.25 mg Q6HR NEB 03/02/25 18:00 03/14/25 12:26 1.25 MG Midazolam HCl 50 ml @ 1 mls/hr Q24H IV 03/03/25 16:15 03/04/25 06:38 6 MLS/HR Epoetin Javan-epbx 10,000 unit 2XW SC 03/04/25 21:00 03/13/25 12:21 10,000 UNIT Enoxaparin Sodium 140 mg DAILY SC 03/05/25 10:00 UNV Diagnostic Test (Pha) 1 strip Q6HR 03/05/25 12:00 03/14/25 11:48 1 STRIP Insulin Human Regular Q6HR SC 03/05/25 12:00 03/12/25 06:02 2 UNITS Dextrose 50 ml UD PRN IV 03/05/25 07:30 Sodium Chloride 10 ml QSHIFT@10,22 IV 03/06/25 10:00 03/14/25 11:30 10 ML Norepinephrine Bitartrate 32 mg/ Sodium Chloride 250 ml @ 0.938 mls/ hr Q24H IV 03/07/25 09:00 03/14/25 11:30 1.875 MLS/HR Metoclopramide HCl 5 mg Q8HPRN IV 03/07/25 14:00 03/14/25 14:32 5 MG Albumin Human 50 ml @ 100 mls/hr ENRIQUE PRN IV 03/08/25 14:30 03/13/25 14:29 Cancel Enteral Nutritional Formula 1,000 ml 20ML/HR GT 03/09/25 23:30 03/11/25 08:22 1,000 ML Propofol 100 ml @ 4.23 mls/hr [id number] IV 03/11/25 12:00 03/13/25 11:45 29.61 MLS/HR Micafungin Sodium 100 mg/Sodium Chloride 100 ml @ 100 mls/hr DAILY IV 03/13/25 10:00 03/14/25 11:29 100 MLS/HR Fentanyl Citrate 250 ml @ 2.5 mls/hr Q24H IV 03/13/25 06:30 03/13/25 06:51 15 MLS/HR Potassium Chloride 100 ml @ 50 mls/hr Q2H IV 03/13/25 10:00 03/13/25 13:59 UNV Piperacillin Sod/ Tazobactam Sod 50 ml @ 12.5 mls/hr Q8HR IV 03/13/25 22:00 03/14/25 14:26 12.5 MLS/HR Levothyroxine Sodium 50 mcg QAM@0600 PO 03/15/25 06:00 Metoprolol Tartrate 25 mg BID PO 03/14/25 12:00 Hold Examination: GENERAL:Abnormal, CVS:Normal laboratory and microbiology Laboratory Tests 03/14/25 03:22 Test 03/14/25 03:22 Range/Units Serum Glucose 117 H 74-106 mg/dL Microbiology Date/Time Source Procedure Growth Status 03/07/25 20:36 Urine - [place] Urine Culture - Final Yeast, not Rekha albicans Complete 03/06/25 11:25 Blood Blood Culture - Final NO GROWTH AFTER 5 DAYS OF INCUBATION. Complete 03/03/25 16:40 Sputum Gram Stain - Final Complete 03/03/25 16:40 Sputum Respiratory Culture - Final Complete 02/21/25 09:30 Nose MRSA Screen - Final Complete Problem List/Assessment/Plan Problem List/Assessment/Plan Acute kidney injury due to shock-> acute HD ckd 3a respiratory failure-> s/p trach CHF w/ pulm HTN Illeus COPD, morbid obesity sepsis Iron deficiency anemia thrombocytopenia stable vitals, labs reviewed HD today no heparin IV iron, PRBC completed yesterday ABX as per primary team Plan discussed with: Other My Orders My Orders Orders - AMINAH HAIDER MD Procedure Category Date Status Time Hemodialysis Orders ORDERS 03/14/25 Transmitted 07:00 Dialysis Nursing THEO 03/14/25 In Process Message 07:00 Document Fluid Input THEO 03/14/25 In Process And Outpu 07:00 Dietary Evaluation Review Comments: 1. Disagree with current TF orders, change to Vital HP @ 40 ml/hr continuously 2. Provide free water flushes of 30 ml Q8 hrs (90 ml total); adjust PRN 3. Monitor BMP/lytes and replete to WNL 4. When appropriate for oral diet, recommend Cardiac diet as tolerated TF Provision: TF at goal to provide 960 ml total volume, 960 kcal (+958 kcal via propofol = 1918 kcal), 84 gm pro, 0 gm fiber, 107 gm CHO, 801 ml H20 (meets 100% est. kcal needs, 100% est. pro needs) Expected Outcomes/Goals: Improved nutritional status, hemodynamic stability. AMINAH HAIDER MD Mar 14, 2025 14:51
[2025-03-15] VITALS (102 sets, daily range): BP systolic 81–165; BP diastolic 30–101; PULSE 69–141; RESP 10–60; TEMP 96.5–98.7; O2SAT 90–100
[2025-03-15 04:11] LABS: Basophils # (auto) 0 10 ^3/uL (0-0.2); Hemoglobin 9.4 g/dL (12.2-16.2); Monocytes # (auto) 0.3 10 ^3/uL (0-1.3); Monocytes % (auto) 6.6 % (0.0-12.0); Nucleated Red Blood Cells % 0.2 %
[2025-03-15 04:13] LABS: Basophils % (auto) 0.5 % (0.0-2.0); Eosinophils # (auto) 0 10 ^3/uL (0-0.8); Eosinophils % (auto) 0.9 % (0.0-7.0); Hematocrit 28.8 % (36.0-46.0); Lymphocytes # (auto) 0.5 10 ^3/uL (0.4-5.4); Lymphocytes % (auto) 9.5 % (10.0-50.0); Mean Corpuscular Hemoglobin 30.8 pg (28.0-32.0); Mean Corpuscular Hgb Conc. 32.7 g/dL (32.0-36.0); Mean Corpuscular Volume 94.2 fL (80.0-100.0); Neutrophils # (auto) 4.2 10 ^3/uL (1.6-8.6); Neutrophils % (auto) 82.5 % (37.0-80.0); Platelet Count (auto) 47 10^3/uL (140-450); Red Blood Cells 3.06 10^6/uL (4.0-5.20); Red Cell Distribution Width 18.6 % (11.8-14.3)
[2025-03-15 04:37] LABS: Alanine Aminotransferase 14 U/L (7-40); Anion Gap 15 (5-15); BUN/Creatinine Ratio 10.6 (10.0-20.0); Bilirubin, Total 0.6 mg/dL (0.2-1.0); Carbon Dioxide 22 mmol/L (20-31); Chloride 100 mmol/L (98-107); Glucose 99 mg/dL (74-106); Magnesium 2.1 mg/dL (1.6-2.6); Potassium 3.5 mmol/L (3.5-5.1); Sodium 137 mmol/L (136-145)
[2025-03-15 04:38] LABS: Albumin 2.9 g/dL (3.2-4.8); Alkaline Phosphatase 150 U/L (46-116); Aspartate Aminotransferase 13 U/L (13-40); Blood Urea Nitrogen 25 mg/dL (9-23); Calcium 8.7 mg/dL (8.7-10.4); Total Protein 5.1 g/dL (5.7-8.2)
[2025-03-15 05:07] LABS: Platelet Estimate Decreased
[2025-03-15] MEDS: LEVOTHYROXINE SODIUM 50 MCG TAB PO SCH (05:41)
--- NOTE | 2025-03-15 06:03 | DVH ---
CHEST RADIOGRAPH Indication: sob Technique: Single frontal view of the chest was obtained Comparison: XY CHEST PORTABLE on DOS: 03/14/25 FINDINGS: Lines and Tubes: Right central venous catheter terminates in the superior vena cava. Right PICC term inates in the superior vena cava. Tracheostomy tube is unchanged. The enteric tube courses below the left hemidiaphragm and the tip extends outside the field of view. Lungs: Mild bilateral pulmonary opacities. Pleura: No effusion. No pneumothorax. Cardiomediastinal contours: Cardiomegaly. Bones: No acute osseous abnormality. IMPRESSION: 1. Cardiomegaly. 2. Bilateral pulmonary opacities which may reflect edema or pneumonia.
[2025-03-15 07:47] LABS: Base Excess -1.2 mmol/L (-2.0-3.0)
--- NOTE | 2025-03-15 10:48 | DVHDSRES ---
Discharge Summary Date of Admission Resident Creating Document: NENA ZHOU RESIDENT Feb 19, 2025 at 15:10 Date of Discharge: Mar 14, 2025 Admitting Diagnosis Pneumonia Labs/Diagnostic Data: Laboratory Results Test 03/15/25 07:37 03/15/25 07:01 03/15/25 03:52 03/14/25 12:10 Blood Gas Specimen Type Arterial Blood Gas Sample Site Left radial Blood Gas Patient Temperature 37.0 Arterial Blood Date Drawn [id number] Arterial Blood pH 7.462 (7.350-7.450) Arterial Blood Partial Pressure CO2 31.6 mmHg (32.0-45.0) Arterial Blood Partial Pressure O2 91.1 mmHg (83.0-108.0) Arterial Blood HCO3 22.1 mmol/L (21.0-28.0) Arterial Blood Oxygen Saturation 96.7 % (94.0-98.0) Arterial Blood Base Excess -1.2 mmol/L (-2.0-3.0) Arterial Blood Oxyhemoglobin 96.3 % (94.0-98.0) Arterial Blood Carboxyhemoglobin 0.2 % (0.5-1.5) Arterial Blood Methemoglobin 0.2 % (0.0-1.5) Rodrigo Test Modified Blood Gas Total Hemoglobin 9.70 g/dL (12.0-16.0) Blood Gas Set Respiration Rate 20.0 Blood Gas Modality Vent - ac Blood Gas Spontaneous Rate 20 FiO2 % 30.0 Blood Gas Tidal Volume 450.0 Blood Gas PEEP or CPAP 5.0 Cortisol AM Sample 23.62 ug/dL (5.27-22.45) White Blood Count 5.0 10^3/uL (4.4-10.8) Red Blood Count 3.06 10^6/uL (4.0-5.20) Hemoglobin 9.4 g/dL (12.2-16.2) Hematocrit 28.8 % (36.0-46.0) Mean Corpuscular Volume 94.2 fL (80.0-100.0) Mean Corpuscular Hemoglobin 30.8 pg (28.0-32.0) Mean Corpuscular Hemoglobin Concent 32.7 g/dL (32.0-36.0) Red Cell Distribution Width 18.6 % (11.8-14.3) Platelet Count 47 10^3/uL (140-450) Mean Platelet Volume 8.1 fL (6.9-10.8) Neutrophils (%) (Auto) 82.5 % (37.0-80.0) Lymphocytes (%) (Auto) 9.5 % (10.0-50.0) Monocytes (%) (Auto) 6.6 % (0.0-12.0) Eosinophils (%) (Auto) 0.9 % (0.0-7.0) Basophils (%) (Auto) 0.5 % (0.0-2.0) Neutrophils # (Auto) 4.2 10 ^3/uL (1.6-8.6) Lymphocytes # (Auto) 0.5 10 ^3/uL (0.4-5.4) Monocytes # (Auto) 0.3 10 ^3/uL (0-1.3) Eosinophils # (Auto) 0 10 ^3/uL (0-0.8) Basophils # (Auto) 0 10 ^3/uL (0-0.2) Nucleated Red Blood Cells 0.2 % Platelet Estimate Decreased Sodium Level 137 mmol/L (136-145) Potassium Level 3.5 mmol/L (3.5-5.1) Chloride Level 100 mmol/L (98-107) Carbon Dioxide Level 22 mmol/L (20-31) Anion Gap 15 (5-15) Blood Urea Nitrogen 25 mg/dL (9-23) Creatinine 2.35 mg/dL (0.550-1.02) Glomerular Filtration Rate Calc 22 mL/min (>90) BUN/Creatinine Ratio 10.6 (10.0-20.0) Serum Glucose 99 mg/dL (74-106) Calcium Level 8.7 mg/dL (8.7-10.4) Magnesium Level 2.1 mg/dL (1.6-2.6) Total Bilirubin 0.6 mg/dL (0.2-1.0) Aspartate Amino Transferase (AST) 13 U/L (13-40) Alanine Aminotransferase (ALT) 14 U/L (7-40) Alkaline Phosphatase 150 U/L (46-116) Total Protein 5.1 g/dL (5.7-8.2) Albumin 2.9 g/dL (3.2-4.8) Lactic Acid Level 1.7 mmol/L (0.4-2.0) Test 03/14/25 10:39 03/14/25 03:22 03/13/25 03:30 03/12/25 04:37 Blood Gas Comments Thyroid Stimulating Hormone (TSH) 10.00 uIU/mL (0.55-4.78) Free Thyroxine (T4) Calculated 0.62 ng/dL (0.89-1.76) Free Triiodothyronine (T3) pg/mL 0.46 pg/mL (2.3-4.2) Phosphorus Level 2.4 mg/dL (2.4-5.1) Ovalocytes Few Test 03/11/25 03:57 03/10/25 03:37 03/09/25 04:00 03/09/25 03:58 Anisocytosis (manual) Slight Prothrombin Time 10.8 sec (9.3-11.8) Prothrombin Time INR 1.02 (0.9-1.15) Creatine Kinase 108 U/L (34-145) Tear Drop Cells Few Digoxin Level 0.92 ng/mL (0.8-2) Stomatocytes Few Test 03/05/25 17:47 03/05/25 04:00 03/04/25 10:05 03/03/25 08:30 Activated Partial Thromboplast Time 27.4 SEC (24.5-34.5) Polychromasia Slight Iron Level 17 ug/dL (50-170) Total Iron Binding Capacity 212 ug/dL (250-425) Percent Iron Saturation 8.0 % (15-50) Ferritin 52.8 ng/mL (10-291) Urine Color Yellow (Yellow) Urine Clarity Cloudy (Clear) Urine pH 5.5 (5.0-9.0) Urine Specific [place] 1.017 (1.001-1.035) Urine Protein 1+ (Negative) Urine Ketones Negative (Negative) Urine Blood 3+ /uL (Negative) Urine Nitrite Negative (Negative) Urine Bilirubin Negative (Negative) Urine Urobilinogen Normal mg/dL (Negative) Urine Leukocyte Esterase 1+ /uL (Negative) Urine RBC 24 /hpf (0 - 4) Urine Microscopic WBC 12 /HPF (0-5) Urine Squamous Epithelial Cells Few /hpf (<5) Urine Bacteria Few /hpf (None Seen) Urine Creatinine 57.03 mg/dL (30.0-125.0) Urine Sodium 50 mmol/L (40-220) Urine Glucose Trace mg/dL (Normal) Urine Total Protein 211.8 mg/dL (1-14) Blood Gas EPAP 10 Blood Gas IPAP 18 Test 03/03/25 04:19 03/03/25 03:23 03/02/25 07:00 03/01/25 10:37 Hypochromasia (manual) Slight Vitamin D 25-Hydroxy 19.0 ng/mL (30.0-100) Parathyroid Hormone (Intact) 409.2 pg/mL (18.4-80.1) Hepatitis A IgM Antibody Negative Hepatitis B Surface Antigen Negative (Negative) Hepatitis B Core IgM Antibody Negative (Negative) Hepatitis C Antibody Negative (Negative) Blood Gas Pressure Support 8 Blood Gas Critical Value Read Back yes Blood Gas Notified Whom rajeev Alanis md Blood Gas Notified Time [id number] Blood Gas Notified By Test 02/28/25 13:38 02/28/25 11:40 02/26/25 03:33 02/25/25 16:10 Blood Gas Spontaneous Tidal Volume 457 POC Glucose 183 mg/dl (70-106) Clumped Platelets Few Total Triiodothyronine (TT3) 0.53 ng/mL (0.60-1.81) Test 02/25/25 13:00 02/25/25 03:00 02/24/25 07:22 02/19/25 19:01 Influenza Type A Antigen Negative (Negative) Influenza Type B Antigen Negative (Negative) SARS-CoV-2 Antigen (Rapid) Negative (NEGATIVE) Hemoglobin A1c 5.3 % A1C (<5.7) B-Type Natriuretic Peptide 168.53 pg/mL (0-100) Triglycerides Level 116 mg/dL (< 150) Cholesterol Level 209 mg/dL (< 200) LDL Cholesterol 124 mg/dL (< 100) HDL Cholesterol 64 mg/dL (40-59) Specimen Drawn By Gabby hicks Urine Hyaline Casts Many /lpf (0 - 2) Test 02/19/25 15:21 Troponin I High Sensitivity 48 ng/L (</=34) Other Laboratory Tests 03/15/25 03:52 Brief Hx & Hospital Course: This is 69 years old female with a past medical history of hypertension, type 2 diabetes mellitus, atrial fibrillation on Eliquis, CHF, COPD on [place] O2 2 L/min at home came to the ER with a complaint of bilateral leg swelling. Patient had tracheostomy before during COVID infection around 2020 and had tracheostomy for 2 months PMH-hypertension, type 2 diabetes mellitus, atrial fibrillation on Eliquis, CHF, COPD on [place] O2 2 L/min at home PSH- Allergy- NKDA Personal History/ Social History- lives with family, Nonsmoker, nonalcoholic and never tried any drugs Information was gathered from chart review and speaking to the family. As per patient's , she has been having bilateral leg swelling for last 1 month which was getting worse. Patient also endorsed shortness of breath and chest pain that prompted this visit. He also reported productive cough with greenish sputum for the same duration. According to the family she was admitted to [facility] 1-1/2 months ago for elevated potassium, anemia and elevated carbon dioxide and later diagnosed with arrhythmia. She was altered on admission likely due to metabolic encephalopathy related to sepsis, hypoxia and hypercarbia. Initial Lab workup revealed WBC 5.7, hemoglobin 10.1, BUN 124, sodium 129, potassium 6.5, anion gap 13, BUN 42, serum creatinine 2.32, lactic acid 0.7, calcium 9.8, Ambien 0.9, AST 31, ALT 16, alkaline phosphatase 137, troponin I 42>> 44> 48, BNP 551, TSH 4.0, albumin 4.4. Urinalysis negative for UTI. Negative for COVID-19 and influenza type A and B. CXR revealed pulmonary edema/Multifocal airspace disease. Doppler study of the lower extremity negative for DVT. On 02/21/2020 Echo 2D revealed LVEF 50-55% with moderately decreased RV function, doming of the interventricular septum in systole highly suggestive of pulmonary hypertension. Right ventricular pressure overload. Mild MR, fycesqdw-dc-nggmog TR, moderate pulmonary insufficiency, noted pulmonary hypertension. Moderate pericardial effusion. Patient had AFib with RVR on admission. [id number] score 5. She was retaining CO2 as per ABG patient was put on CPAP but later on patient became very confused and poorly responsive and patient was intubated 05/23/2025. Central line placed on 02/20/2025. She was given steroids and duonebs due to COPD exacerbation. Patient had bronchoscopy on 02/20/2025 revealing Left lung collapse due to mucous plugging, Mucous plugging from L1-L10. RML BAL performed . CPAP trial done on 02/22/25-CPAP trial-patient's arrival to open her eyes, very weak. On 02/21/2025 urine CS no growth, Blood CS no growth, MRSA screening negative. On 02/20/2025 respiratory culture no growth. Patient is being followed by Cardiology for atrial fibrillation. Patient was on digoxin. Patient was on Levophed for hypotension likely due to septic shock. On 02/23/2025 patient was placed on CPAP trial and patient went apneic. Patient had several episodes of vaginal bleeding. Patient was seen by floor covering printer assistant. Ultrasound of the pelvis and transvaginal ultrasound was nonsignificant because of the patient's body status. On 02/26/25 Patient had a failed CPAP trial at a.m. On 02/27/2025 patient had failed CPAP trial at a.m. patient had no air leak, Lovenox DVT prophylaxis was on hold due to thrombocytopenia. On 02/28/2025-following a CPAP trial Patient was extubated, after extubation patient was doing well for short period of time then patient started having some stridor. Methylprednisolone stat 60 mg was given also breathing treatment with racemic was given as well. Patient had to be reintubated given respiratory distress, she was also started on hemodialysis given declining kidney function. After that patient's respiratory status improved significantly, we kept diuresing her and giving her breathing treatments and Solu-Medrol due to her COPD. Patient continued to be on hemodialysis as kidneys did not improve. She also underwent colon decompression 1st by manual disimpaction and thin by colonoscopy, patient later had significant clinical improvement, her intra-abdominal pressures decreased and she was able to start on feedings, she tolerated well. Patient was continued on IV antibiotics given pneumonia, UTI per urinalysis. She was also quite thrombocytopenic and she received a unit of platelets, she also received a unit of RBC pack given intermittent vaginal bleeding that she was having for the only because of her size she will do feet CAT scan and ultrasound was not be diagnostic. Patient has a tracheostomy done in 03/12/25, we discontinue her sedation, she has been more awake, she was able to be order trach collar, we will continue given her trach collar trials. Physical examination as below: General: Mechanically ventilated, tracheostomy HEENT: Head is normocephalic and atraumatic. Pupils are equal, round, and reactive to light. Neck: Supple with no cervical lymphadenopathy. Heart: Regular rate without murmur, rub, or gallop. Lungs: Mild bilateral diffuse crackles and scattered wheezing Abdomen: No external sign of injury. Bowel sounds are present. Abdomen is soft, nontender. Distended Extremities: Strong peripheral pulses. There is no clubbing, no cyanosis, and no edema. Skin: No rash. Patient will be discharge to LTAC, will continue home medications as prescribed in spread sheet. Follow-up with PCP. Patient verbalized understanding and agree with the DC plan, we spent over 30 minutes explaining the plan. Addendum: patient left on march 19 2025 to LTAC Case was discussed with Dr. Hood Consults/Reason for consult Nephrology was consulted due to AN Surgery was consulted for tracheostomy GI was consulted due to colon dilation Cardiology was consulted due to CHF and afib LEAD TINNER was consulted due to vaginal bleeding Operations or Procedures [place] [address] Ph: [phone] PATIENT: MONSE KWOKAACCT: [id number] : 1955 LOC: ICU [facility] ROOM/ROOM: [address] [place] [address] AGE/SEX: 69/F ADM STATUS: ADM IN ADM DATE: 02/19/25 UNIT: [id number] HEALTH INFORMATION MANAGEMENT PROCEDURE NOTE - DV :[id number] Signed ORDERING PHYSICIAN: PROCEDURE(s): ORDER NUMBER(s): , ACCESSION NUMBER(s): Central Line Recorder of insertion practice: Roll Over Press Operator Occupation of home lending officer: Attending Physician Indication: Hypotension, CVP monitoring Room prepared for procedure: Yes Roll Over Press Operator performed hand hygien: Yes Maximal sterile barrier precau: Mask/Eye shield, Sterile gown Skin Preparation: Chlorhexidine gluconate, Providine iodine Skin preparation completely dr: Yes Insertion site: Left, Internal jugular Central line catheter type: Yak-wnsvciif-bew dialysis Number of lumens: 3 Antiseptic ointment applied to: Yes Post Assessment: Chest X-Ray Intubation Indication: Respiratory Insufficiency Prep: Preoxygenation Pretreated with: Analgesia, Sedation Medicated with: Vecuronium Intubation Approach: Orotracheal Intubation size: cm (8) Date of Service: Feb 20, 2025 Billing Provider: GURMEET RODRIGUEZ MD Common Visit Codes: 09692-XOBJPEW INP/OBS CARE (HIGH) Secondary Visit Codes: 49825-OZMEXRTFI STANDBY SERVICE Consultation Codes: 10457-LVIUWCBLN CONSULT <45MIN Procedure Codes: 99375-LNLTLESGBJ, 84868-PSTQOQ NON-TUNNEL CV CATH GURMEET RODRIGUEZ MD Feb 20, 2025 09:56 DICTATED BY: GURMEET RODRIGUEZ MD DICATED DATE/TIME: 02/20/25955 SIGNED BY: GURMEET RODRIGUEZ MD <<Signature on File>> SIGNED DATE/TIME: 02/20/25 09 CC: [place] [address] Ph: [phone] PATIENT: DALE KWOKCT: [id number] : 1955 LOC: ICU [facility] ROOM/ROOM: [address] [place] [address] AGE/SEX: 69/F ADM STATUS: ADM IN ADM DATE: 02/19/25 UNIT: [id number] HEALTH INFORMATION MANAGEMENT PROCEDURE NOTE - DV :[id number] Signed ORDERING PHYSICIAN: PROCEDURE(s): ORDER NUMBER(s): , ACCESSION NUMBER(s): Procedure - Bronchoscopy procedure note: Indications: Left lung collapse, Possible mucous plugging. Medicines: See PLATE ROLLER notes. Complications: None Procedure: Patient medications and allergies reviewed. The risks and benefits of the procedure and the sedation options and risk were discussed with the patient's healthcare proxy. All questions were answered and informed consent was obtained. Patient identification and proposed procedure were verified prior to the procedure by the physician, and a nurse, and the respiratory therapist in ED room. The heart rate, respiratory rate, oxygen saturations, blood pressure, adequacy of pulmonary ventilation, and response to care were monitored throughout the procedure. The physical status of the patient was reassessed after the procedure. After obtaining informed consent, the bronchoscope was introduced through the endotracheal tube and advanced into the trachea bronchial tree of both lungs. The procedure was accomplished without difficulty. The patient tolerated the procedure well. Findings: The trachea is in normal caliber. The sejal is sharp. The tracheobronchial tree of the right lung was examined to at least the first subsegmental level. The bronchial mucosa and anatomy in the right lung are normal. There are no endobronchial lesions. There was scant whitish secretions from right main stem bronchus onward throughout R1-R10. Right middle lobe (RML) Bronchoalveolar lavage (BAL) obtained. RML BAL sent for gram stain and culture,and fungal culture. The left upper lobe, lingula, and left lower lobe were examined to at least the first subsegmental level. Bronchial mucosa and anatomy in the left upper lobe and lingula are normal. There were no endobronchial lesions. There was copious whitish secretions from left main stem bronchus onward throughout L1-L10. Mucous plugging removed from L1-L10. 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 There was no active bleeding at the completion of the procedure. Estimated blood loss: Less than 5 mL. Impression: Left lung collapse due to mucous plugging Mucous plugging from L1-L10 RML BAL performed Recommendation: Follow-up RML BAL results. Procedure codes: 99677, bronchoscopy, rigid and flexible, including fluoroscopic guidance, one performed; with bronchial endobronchial broncho-alveolar lavage, single or multiple sites RADHA BRANDT MD Feb 20, 2025 18:41 DICTATED BY: RADHA BRANDT MD DICATED DATE/TIME: 02/20/251840 SIGNED BY: RADHA BRANDT MD <<Signature on File>> SIGNED DATE/TIME: 02/20/251840 CC: [place] [address] Ph: [phone] PATIENT: MONSE KWOKAACCT: [id number] : 1955 LOC: [facility] ROOM/ROOM: [address] [place] [address] AGE/SEX: 69/F ADM STATUS: ADM IN ADM DATE: 02/19/25 UNIT: [id number] HEALTH INFORMATION MANAGEMENT PROCEDURE NOTE - DV :[id number] Signed ORDERING PHYSICIAN: PROCEDURE(s): ORDER NUMBER(s): , ACCESSION NUMBER(s): Intubation Indication: Respiratory Insufficiency Prep: Preoxygenation Pretreated with: Sedation Medicated with: Succinylcholine Intubation Approach: Orotracheal Intubation size: cm (7.5) Informed consent obtained: Yes Risks/benefits/alt described: Yes Date of Service: Mar 03, 2025 Billing Provider: LIANNA ARTEAGA MD Common Visit Codes: PROCEDURE ONLY Procedure Codes: 64374-DCHOMVKIHC LIANNA ARTEAGA MD Mar 03, 2025 16:41 DICTATED BY: LIANNA ARTEAGA MD DICATED DATE/TIME: 03/03/251640 SIGNED BY: LIANNA ARTEAGA MD <<Signature on File>> SIGNED DATE/TIME: 03/03/251640 CC: [address] [id number] Ph: [phone] PATIENT: DALE KWOKCT: [id number] : 1955 LOC: ICU [facility] ROOM/ROOM: 0103-CC-A AGE/SEX: 69/F ADM STATUS: ADM IN ADM DATE: 02/19/25 UNIT: [id number] HEALTH INFORMATION MANAGEMENT PROCEDURE NOTE - [facility] :[phone] Signed ORDERING PHYSICIAN: PROCEDURE(s): ORDER NUMBER(s): , ACCESSION NUMBER(s): Procedure - Bronchoscopy procedure note: Indications: Atelectasis, Possible mucous plugging. Increased ET tube secretions. Physician: Dr Andrew Braxton RN Elza Time out: 21:30 Medicines: See PLATE ROLLER notes. Complications: None Procedure: Patient medications and allergies reviewed. The risks and benefits of the procedure and the sedation options and risk were discussed with the patient's healthcare proxy. All questions were answered and informed consent was obtained. Patient identification and proposed procedure were verified prior to the procedure by the physician, and a nurse, and the respiratory therapist in ICU room. The heart rate, respiratory rate, oxygen saturations, blood pressure, adequacy of pulmonary ventilation, and response to care were monitored throughout the procedure. The physical status of the patient was reassessed after the procedure. After obtaining informed consent, the bronchoscope was introduced through the endotracheal tube and advanced into the trachea bronchial tree of both lungs. The procedure was accomplished without difficulty. The patient tolerated the procedure well. Findings: The trachea is in normal caliber. The sejal is sharp. The tracheobronchial tree of the right lung was examined to at least the first subsegmental level. The bronchial mucosa and anatomy in the right lung are normal. There are no endobronchial lesions. There was copious greenish secretions from right main stem bronchus onward throughout R1-R3 and R6-R10. The left upper lobe, lingula, and left lower lobe were examined to at least the first subsegmental level. Bronchial mucosa and anatomy in the left upper lobe and lingula are normal. There were no endobronchial lesions. There was copious greenish/brownish secretions from left main stem bronchus onward throughout L1- L3. Mucous plugging removed from L1-L3. There was no active bleeding at the completion of the procedure. Estimated blood loss: Less than 5 mL. Impression: Left and right lower lobe atelectasis due to mucous plugging Mucous plugging from L1-L3 and R1-R3 and R6-R10 Recommendation: Pulmonary toileting Procedure codes: 28601, bronchoscopy, rigid and flexible, including fluoroscopic guidance, one performed; with bronchial endobronchial removal of mucous plugging, single or multiple sites RADHA BRANDT MD Mar 03, 2025 21:51 DICTATED BY: RADHA BRANDT MD DICATED DATE/TIME: 03/03/252150 SIGNED BY: RADHA BRANDT MD <<Signature on File>> SIGNED DATE/TIME: 03/03/252150 CC: Patient: HENRIETTA KWOK Acct: [id number] : 1955 Loc: [facility] Age/Sex: 69/F Room: [address] [place] [address] / Bed: A Attending Phy: NENA ZHOU RESIDENT Operative Report DATE OF OPERATION: 03/07/25 PROCEDURE: INCOMPLETE COLONOSCOPY WITH COLONIC DECOMPRESSION PREOPERATIVE INDICATION: The patient is a 69 -year-old female undergoing colonoscopy for colonic and large intestinal ileus POSTOPERATIVE DIAGNOSES: 1. Patient had a moderate amount of residual liquid and solid stool seen throughout the extent of the examination up to the splenic flexure beyond which the colonoscope could not be advanced safely 2. Irrigation and aspiration was performed and colonic decompression was done and no underlying gross lesion was found PROCEDURE PERFORMED BY: Rolan Recio M.D. SCOPE: Olympus videocolonoscope. ASA CLASS: 3. PREOPERATIVE MEDICATIONS: Patient is ICU intubated sedated PROCEDURE IN DETAIL: After obtaining an informed consent, the patient was placed on left lateral decubitus position. She was then sedated with the above medications. A rectal examination was performed that was normal. The colonoscope was then passed through the anus into the rectosigmoid and through the descending colon up to the splenic flexure to about 50 cm above the anal verge. The colonoscope was then withdrawn as there was too much debris and stool above the level of this area. It was not safe to pass the colonoscope beyond this area because of poor visualization Moderate amount of irrigation and aspiration and decompression was performed Patient was noted to be passing moderate amount of flatus during the procedure No gross lesions were seen. The colonoscope was then withdrawn The patient tolerated the procedure well without difficulty. WITHDRAWAL TIME: Not adequate QUALITY OF THE PREP: [place] Bowel Prep score: Not applicable COMPLICATIONS : None SPECIMENS: None DISPOSITION: Monitor in ICU PLAN: 1. Patient needs to be given laxative to get a good bowel cleanout 2. We can start her with the MiraLax 17 g p.o. daily 3. We will start her on GoLYTELY 1 gal p.o. slowly via the NG tube over the next 24 hours 4. If required a rectal tube can be reinserted especially when the stools become more liquid 5. IV Reglan 5 mg q.8 hours 6. I will check with pharmacy if the patient is able to get any physostigmine or neostigmine ROLAN RECIO MD Mar 07, 2025 10:26 DICTATED BY:ROLAN RECIO MD DICTATED DATE/TIME:03/07/25 1026 ELECTRONICALLY SIGNED BY:ROLAN RECIO MD 03/07/25 1026 ELECTRONICALLY CO-SIGNED BY: Patient: HENRIETTA KWOK Acct: [id number] : 1955 Loc: [facility] Age/Sex: 69/F Room: [address] [place] [address] / Bed: A Attending Phy: NENA ZHOU DATE OF SURGERY: 03/12/2025 PREOPERATIVE DIAGNOSIS: Ventilator-dependent respiratory failure. POSTOPERATIVE DIAGNOSIS: Ventilator-dependent respiratory failure. SURGEON: Lilli Morrell MD DEMAND MANAGER: Amari Talbert NP ANESTHESIA: General endotracheal. ANESTHESIOLOGIST: Gabino. DESCRIPTION OF PROCEDURE: Under general anesthesia with the skin prepped and draped, an incision was made, tissues divided with electrocautery. The trachea was exposed. A tracheotomy was performed through the fifth ring. Size 8 tracheostomy tube was advanced to its final position as the endotracheal tube was withdrawn by the anesthesiologist. Following reaching the final position, there was immediate re-capture of CO2 and return of normal ventilation. The tracheostomy was then secured. The patient remained in unchanged clinical condition at the termination of the procedure and left the operating room following an accurate needle and sponge count. Family was thoroughly informed at [phone]. Lilli Morrell MD PF/BO TID: [id number] RECEIPT: [id number] DICTATED BY:LILLI MORRELL MD DICTATED DATE/TIME:03/12/25 0736 ELECTRONICALLY SIGNED BY:LILLI MORRELL MD 03/12/25 1331 ELECTRONICALLY CO-SIGNED BY: [place] [address] Ph: [phone] DIAGNOSTIC IMAGING Diagnostic Imaging Report : [id number] Signed PATIENT: EDGAR DIAS AMALIAACCT: [id number] UNIT: [id number] : 1955 LOC: ICU [facility] / BED: [address] [place] [address] A AGE / SEX: 69 / F ADM STATUS: ADM IN SERVICE 1111 ORDERING PHYSICIAN: MANNY TAVERA MD PROCEDURE(s): CXRP - CHEST PORTABLE REASON: sob ORDER NUMBER(s): [id number], ACCESSION NUMBER(s): [id number] CHEST RADIOGRAPH Indication: sob Technique: Single frontal view of the chest was obtained COMPARISON: None FINDINGS: Lines and Tubes: None Lungs: Multifocal airspace disease. Pleura: No effusion. No pneumothorax. Cardiomediastinal contours: Cardiomegaly Bones: Unremarkable IMPRESSION: Pulmonary edema and/or multifocal airspace disease. ATED BY: DANIEL FLORES MD DICTATED DATE/TIME: 02/19/251134 SIGNED BY: DANIEL FLORES MD SIGNED DATE/TIME: 02/19/25 113 CC: [place] [address] Ph: [phone] DIAGNOSTIC IMAGING Diagnostic Imaging Report : [id number] Signed PATIENT: MONSE KWOKAACCT: [id number] UNIT: [id number] : 1955 LOC: ICU SEVERANCE ROOM / BED: [address] [place] [address] AGE / SEX: 69 / F ADM STATUS: ADM IN SERVICE 1111 ORDERING PHYSICIAN: MANNY TAVERA MD PROCEDURE(s): BLDVT - BiLat Lower DVT REASON: leg swelling ORDER NUMBER(s): [id number], ACCESSION NUMBER(s): [id number] Bilateral lower extremity venous duplex Clinical History: leg swelling Comparison: None Technique: Duplex Doppler evaluation of the deep venous systems of both lower extremities from the common femoral veins to the popliteal veins including color Doppler and spectral/pulsed waveform analysis was performed. Findings: Evaluation is very limited due to presence of open ones and body habitus. The bilateral common femoral, greater saphenous junction and femoral veins could not be evaluated. The bilateral popliteal, tibioperoneal trunks and posterior tibial veins are seen and are patent. The popliteal veins are compressible bilaterally. Moderate subcutaneous edema in the bilateral calves noted. No drainable fluid collection is seen. Impression: 1. Suboptimal exam due to open wounds and body habitus. The bilateral Common femoral and femoral veins were not evaluated. 2. No evidence of DVT in the bilateral popliteal, tibioperoneal trunk posterior tibial veins. ATED BY: DANIELA ANDREWS MD DICTATED DATE/TIME: 02/19/251818 SIGNED BY: DANIELA ANDREWS MD SIGNED DATE/TIME: 02/19/251818 CC: [place] [address] Ph: [phone] DIAGNOSTIC IMAGING Diagnostic Imaging Report : [id number] Signed PATIENT: MONSE KWOKAACCT: [id number] UNIT: [id number] : 1955 LOC: [facility] ROOM / BED: [address] [place] [address] AGE / SEX: 69 / F ADM STATUS: ADM IN SERVICE 0000 ORDERING PHYSICIAN: PLII ALANIS PROCEDURE(s): PELTR - TRANSVAGINAL US NON OB REASON: HEAVY VAG BLEED ORDER NUMBER(s): [id number], ACCESSION NUMBER(s): [id number] INDICATION: heavy vaginal bleeding TECHNIQUE: Multiple real-time grayscale transabdominal and transvaginal. sonographic images along with color and duplex Doppler of the uterus and ovaries were obtained. COMPARISON: None FINDINGS: Unable to visualize uterus and both ovaries. IMPRESSION: 1. Unable to visualize uterus and both ovaries. ATED BY: ELZA SHIELDS MD DICTATED DATE/TIME: 02/25/25 1239 SIGNED BY: ELZA SHIELDS MD SIGNED DATE/TIME: 02/25/25 1239 CC: [place] [address] Ph: [phone] DIAGNOSTIC IMAGING Diagnostic Imaging Report : [id number] Signed PATIENT: EDGAR DIAS AMALIAACCT: [id number] UNIT: [id number] : 1955 LOC: ICU SEVERANCE ROOM / BED: [address] [place] [address] A AGE / SEX: 69 / F ADM STATUS: ADM IN SERVICE 0638 ORDERING PHYSICIAN: NENA ZHOU RESIDENT PROCEDURE(s): CHSTU - CHEST ULTRASOUND REASON: left sided pleural eff ORDER NUMBER(s): [id number], ACCESSION NUMBER(s): [id number] Bilateral Chest Sonogram Date: 03/05/2025 07:26 AM Clinical history: left sided pleural eff Technique: Limited sonographic evaluation of the bilateral chest was performed to evaluate for pleural effusion. Finding/Impression: No pleural effusions visualized. ATED BY: ROSA SY MD DICTATED DATE/TIME: 03/05/25806 SIGNED BY: ROSA SY MD SIGNED DATE/TIME: 03/05/25806 CC: [place] [address] Ph: [phone] DIAGNOSTIC IMAGING Diagnostic Imaging Report : [id number] Signed PATIENT: EDGAR DIAS AMALIAACCT: [id number] UNIT: [id number] : 1955 LOC: ICU SEVERANCE ROOM / BED: [address] [place] [address] AGE / SEX: 69 / F ADM STATUS: ADM IN SERVICE 07 ORDERING PHYSICIAN: ROLAN RECIO MD PROCEDURE(s): KUB - KUB ABDOMEN SINGLE VIEW REASON: for sigmoidoscopy ORDER NUMBER(s): [id number], ACCESSION NUMBER(s): [id number] XY KUB ABDOMEN SINGLE VIEW HISTORY: for sigmoidoscopy TECHNICAL DATA: 1 view of the abdomen. COMPARISON: XY KUB ABDOMEN SINGLE VIEW on DOS: 03/07/25, XY KUB ABDOMEN SINGLE VIEW on DOS: 03/06/25, XY KUB ABDOMEN SINGLE VIEW on DOS: 03/05/25 FINDINGS: Large colonic gas. Enteric tube is partially seen. A calcified uterus fibroid is seen. Collapse of the right femoral head. IMPRESSION: Large colonic gaseous amount. ATED BY: CHETAN KANG MD DICTATED DATE/TIME: 03/07/25820 SIGNED BY: CHETAN KANG MD SIGNED DATE/TIME: 03/07/25820 CC: [place] [address] Ph: [phone] DIAGNOSTIC IMAGING Diagnostic Imaging Report : [id number] Signed PATIENT: EDGAR DIASAMALIAACCT: [id number] UNIT: [id number] : 1955 LOC: [facility] ROOM / BED: [address] [place] [address] AGE / SEX: 69 / F ADM STATUS: ADM IN SERVICE 9 ORDERING PHYSICIAN: NENA ZHOU PROCEDURE(s): CXRP - CHEST PORTABLE REASON: sob ORDER NUMBER(s): [id number], ACCESSION NUMBER(s): [id number] CHEST RADIOGRAPH Indication: sob Technique: Single frontal view of the chest was obtained Comparison: XY CHEST PORTABLE on DOS: 03/12/25 FINDINGS: Lines and Tubes: Tracheostomy tube is unchanged. Right central venous catheter terminates in the superior vena cava. The enteric tube courses below the left hemidiaphragm and the tip extends outside the field of view. Lungs: Patchy diffuse bilateral consolidation. Pleura: No effusion. No pneumothorax. Cardiomediastinal contours: Cardiomegaly. Bones: No acute osseous abnormality. IMPRESSION: 1. No significant interval change. ATED BY: LATRICIA PAGE MD DICTATED DATE/TIME: 03/13/25458 SIGNED BY: LATRICIA PAGE MD SIGNED DATE/TIME: 03/13/25458 CC: [place] [address] Ph: [phone] DIAGNOSTIC IMAGING Diagnostic Imaging Report : [id number] Signed PATIENT: DALE KWOKCT: [id number] UNIT: [id number] : 1955 LOC: ICU WEST ROOM / BED: [address] [place] [address] AGE / SEX: 69 / F ADM STATUS: ADM IN SERVICE 9 ORDERING PHYSICIAN: NENA ZHOU RESIDENT PROCEDURE(s): CXRP - CHEST PORTABLE REASON: sob ORDER NUMBER(s): [id number], ACCESSION NUMBER(s): [id number] CHEST RADIOGRAPH Indication: sob Technique: Single frontal view of the chest was obtained Comparison: XY CHEST PORTABLE on DOS: 03/14/25 FINDINGS: Lines and Tubes: Right central venous catheter terminates in the superior vena cava. Right PICC terminates in the superior vena cava. Tracheostomy tube is unchanged. The enteric tube courses below the left hemidiaphragm and the tip extends outside the field of view. Lungs: Mild bilateral pulmonary opacities. Pleura: No effusion. No pneumothorax. Cardiomediastinal contours: Cardiomegaly. Bones: No acute osseous abnormality. IMPRESSION: 1. Cardiomegaly. 2. Bilateral pulmonary opacities which may reflect edema or pneumonia. ATED BY: LATRICIA PAGE MD DICTATED DATE/TIME: 03/15/25600 SIGNED BY: LATRICIA PAGE MD SIGNED DATE/TIME: 03/15/25600 CC: Condition at Discharge: Guarded Final Diagnosis/Problems List #Metabolic encephalopathy due to sepsis #Septic shock due to Pneumonia, gram (+) vs gram (-), atypicals #Acute on chronic hypoxic and hypercarbic respiratory failure, on mechanical ventilator, s/p tracheostomy #COPD exacerbation #UTI, complicated, growing VRE possible colonization #Acute on chronic diastolic CHF with RV failure #Pulmonary hypertension, class 2 vs 3, moderate-severe #NSTEMI likely type 2 #Atrial fibrillation with rapid ventricular rate #Tricuspid regurgitation, slpyoofu-oe-eyqcnn degree #Pericardial effusion #Obstructive sleep apnea #Obesity hypoventilation syndrome #Respiratory acidosis, compensated #Pneumonia, gram (+) vs gram (-), atypicals #Mucous plugs s/p bronch 03/03/25 #AN, likely ATN #Morbid obesity #Bowel distention, possible SBO, ileus #Constipation #Transaminitis, likely due to sepsis #Thrombocytopenia likely due to sepsis #Anemia normocytic normochromic #Fungal UTI #Vaginal bleeding Discharge Disposition: Inpatient Rehab Facility Discharge Instruct/Medications Diet: See Comment Diet comment: tube feedings Activity: No Restrictions, As Tolerated Follow Up/Referral: fu with pcp Medications: per jan Discharge Statement: "Patient was advised to return to the ER or call 911 if any headaches, dizziness, shortness of breath, chest pain, abdominal pain, bleeding, fevers, or worsening of medical condition. Patient was counseled about treatment plan, medications, possible side effects, patientverbalized understanding. All questions were answered to the best of my ability. This discharge took greater then 30 minutes in planning, reviewing documentation, counseling the patient, and discussing with other team members." ASSESSMENT ASSESSMENT Assessment acute resp failure NENA ZHOU RESIDENT Mar 15, 2025 10:48
[2025-03-15 13:05] LABS: Urine Bacteria FEW /hpf (None Seen); Urine Blood 2+ /uL (Negative); Urine Budding Yeast MANY /hpf (None Seen); Urine Clarity Turbid (Clear); Urine Color Light-Orange (Yellow); Urine Protein, UAD 2+ (Negative); Urine Specific Gravity 1.015 (1.001-1.035); Urine Squamous Epithelial Cell FEW /hpf (<5); Urine Urobilinogen Normal (Negative); Urine WBC 92 /HPF (0-5); Urine WBC Clumps PRESENT /hpf (None Seen); Urine pH 5.5 (5.0-9.0)
[2025-03-15] MEDS: METOPROLOL TARTRATE 1MG/1ML-5ML VIAL IV ONE (14:46)
--- NOTE | 2025-03-15 15:34 | DVHPN2 ---
Progress Note - Dictate Date Seen: Mar 15, 2025 Medical Necessity Reason Pt with a Central, PICC or Fol: Yes The following are medically ne: Serrano Catheter Reason for serrano catheter: Strict I&O Subjective no significant reported events overnight vital signs Vital Sign Date Time Temp Pulse Resp B/P (MAP) Pulse Ox O2 Delivery O2 Flow Rate FiO2 03/15/25 14:46 132 105/68 03/15/25 12:30 60 98 03/15/25 12:24 Trach Collar 10 40 Cool Aerosol 40 03/15/25 12:01 98.1 98.1 Total Intake and Output 03/14/25 03/14/25 03/15/25 15:00 23:00 07:00 Intake Total 165.000 ml 969.000 ml 105.000 ml Output Total 2050 ml 30 ml Balance 165.000 ml -1081.000 ml 75.000 ml medications Current Medications Medications Dose Ordered Sig/Adolfo Route Start Time Stop Time Status Last Admin Dose Admin Nitroglycerin 0.4 mg Q5MINP PRN SL 02/19/25 15:15 Ipratropium [place] 0.5 mg Q6HR NEB 02/19/25 18:00 03/15/25 12:27 0.5 MG Dextrose 50 ml UD PRN IV 02/22/25 07:15 Cancel Pantoprazole Sodium 40 mg DAILY IV 02/26/25 10:00 03/15/25 10:35 40 MG Levalbuterol HCl 1.25 mg Q6HR NEB 03/02/25 18:00 03/15/25 12:27 1.25 MG Epoetin Javan-epbx 10,000 unit 2XW SC 03/04/25 21:00 03/13/25 12:21 10,000 UNIT Enoxaparin Sodium 140 mg DAILY SC 03/05/25 10:00 UNV Diagnostic Test (Pha) 1 strip Q6HR 03/05/25 12:00 03/15/25 11:35 1 STRIP Insulin Human Regular Q6HR SC 03/05/25 12:00 03/12/25 06:02 2 UNITS Dextrose 50 ml UD PRN IV 03/05/25 07:30 Sodium Chloride 10 ml QSHIFT@10,22 IV 03/06/25 10:00 03/15/25 10:35 10 ML Norepinephrine Bitartrate 32 mg/ Sodium Chloride 250 ml @ 0.938 mls/ hr Q24H IV 03/07/25 09:00 03/15/25 11:22 1.875 MLS/HR Metoclopramide HCl 5 mg Q8HPRN IV 03/07/25 14:00 03/15/25 14:04 5 MG Albumin Human 50 ml @ 100 mls/hr ENRIQUE PRN IV 03/08/25 14:30 03/13/25 14:29 Cancel Enteral Nutritional Formula 1,000 ml 20ML/HR GT 03/09/25 23:30 03/11/25 08:22 1,000 ML Micafungin Sodium 100 mg/Sodium Chloride 100 ml @ 100 mls/hr DAILY IV 03/13/25 10:00 03/15/25 10:35 100 MLS/HR Potassium Chloride 100 ml @ 50 mls/hr Q2H IV 03/13/25 10:00 03/13/25 13:59 UNV Piperacillin Sod/ Tazobactam Sod 50 ml @ 12.5 mls/hr Q8HR IV 03/13/25 22:00 03/15/25 14:04 12.5 MLS/HR Levothyroxine Sodium 50 mcg QAM@0600 PO 03/15/25 06:00 03/15/25 05:41 50 MCG Metoprolol Tartrate 25 mg BID PO 03/14/25 12:00 Hold objective gen: somnolent, on trac collar lungs: adequate air exchange ext: + edema laboratory and microbiology Laboratory Tests 03/15/25 03:52 Test 03/15/25 03:52 Range/Units Serum Glucose 99 74-106 mg/dL Assessment/Plan Problem List/Assessment/Plan Acute kidney injury due to shock-> acute HD ckd 3a respiratory failure-> s/p trach CHF w/ pulm HTN Illeus COPD, morbid obesity sepsis Iron deficiency anemia thrombocytopenia - metabolic parameters acceptable currently without urgent indication for kidney replacement therapy - will continue to evaluate daily. Dietary Evaluation Review Comments: 1. Disagree with current TF orders, change to Vital HP @ 40 ml/hr continuously 2. Provide free water flushes of 30 ml Q8 hrs (90 ml total); adjust PRN 3. Monitor BMP/lytes and replete to WNL 4. When appropriate for oral diet, recommend Cardiac diet as tolerated TF Provision: TF at goal to provide 960 ml total volume, 960 kcal (+958 kcal via propofol = 1918 kcal), 84 gm pro, 0 gm fiber, 107 gm CHO, 801 ml H20 (meets 100% est. kcal needs, 100% est. pro needs) Expected Outcomes/Goals: Improved nutritional status, hemodynamic stability. Plan discussed with: Other STEVO ROTH MD Mar 15, 2025 15:34
[2025-03-15] MEDS: DIGOXIN (250MCG/ML) 2 ML AMPULE IV ONE (18:27)
[2025-03-16] VITALS (107 sets, daily range): BP systolic 82–160; BP diastolic 37–94; PULSE 70–138; RESP 8–47; TEMP 97.4–98.6; O2SAT 89–100
[2025-03-16 04:18] LABS: Basophils # (auto) 0 10 ^3/uL (0-0.2); Eosinophils # (auto) 0 10 ^3/uL (0-0.8); Lymphocytes # (auto) 0.5 10 ^3/uL (0.4-5.4); Lymphocytes % (auto) 11.5 % (10.0-50.0); Monocytes # (auto) 0.4 10 ^3/uL (0-1.3); Platelet Count (auto) 55 10^3/uL (140-450)
[2025-03-16 04:20] LABS: Basophils % (auto) 0.3 % (0.0-2.0); Eosinophils % (auto) 1.2 % (0.0-7.0); Hematocrit 27.2 % (36.0-46.0); Mean Corpuscular Hemoglobin 30.9 pg (28.0-32.0); Mean Corpuscular Hgb Conc. 32.9 g/dL (32.0-36.0); Mean Corpuscular Volume 93.8 fL (80.0-100.0); Monocytes % (auto) 9.5 % (0.0-12.0); Neutrophils # (auto) 3.2 10 ^3/uL (1.6-8.6); Neutrophils % (auto) 77.5 % (37.0-80.0); Nucleated Red Blood Cells % 0.2 %; Red Cell Distribution Width 19.2 % (11.8-14.3); White Blood Cell 4.1 10^3/uL (4.4-10.8)
[2025-03-16 04:30] LABS: Alanine Aminotransferase 14 U/L (7-40); Anion Gap 14 (5-15); BUN/Creatinine Ratio 12.9 (10.0-20.0); Carbon Dioxide 24 mmol/L (20-31); Chloride 99 mmol/L (98-107); Glucose 96 mg/dL (74-106); Magnesium 2.1 mg/dL (1.6-2.6); Potassium 3.9 mmol/L (3.5-5.1); Sodium 137 mmol/L (136-145)
[2025-03-16 04:31] LABS: Bilirubin, Total 0.5 mg/dL (0.2-1.0)
[2025-03-16 04:32] LABS: Albumin 2.8 g/dL (3.2-4.8); Alkaline Phosphatase 140 U/L (46-116); Aspartate Aminotransferase 10 U/L (13-40); Blood Urea Nitrogen 36 mg/dL (9-23)
--- NOTE | 2025-03-16 05:49 | DVH ---
CHEST RADIOGRAPH Indication: sob Technique: Single frontal view of the chest was obtained Comparison: XY CHEST PORTABLE on DOS: 03/15/25, XY CHEST PORTABLE on DOS: 03/14/25, XY CHEST PORTABLE o n DOS: 03/13/25 IMPRESSION: The heart is markedly enlarged. Tracheostomy tube, enteric tube, and right venous axis catheters isha ear stable in satisfactory position. Likely small right pleural effusion. Pvao-ou-jfitrwid pulmonar y vascular congestion. No pneumothorax.
[2025-03-16 06:57] LABS: Base Excess -0.8 mmol/L (-2.0-3.0)
--- NOTE | 2025-03-16 08:18 | DVHPN2 ---
Subjective Update 03/16 03/16- primary ICU team has plan for transfer to LTAC. Patient was on Levophed, Zosyn. Patient was ventilated. Levophed at 4. Vent settings VC 400/18/5/30%. Patient AFib rate increased slightly. I will continue primary team and Cardiology recommendation of daily digoxin added. Otherwise continue primary plan from primary team and continue transfer to LTAC. Continue all other medications as primary team outlined. Reviewed: H&P Changes from previous H/P or p: No Changes General: Per HPI Objective Vitals Vital Signs Date Time Temp Pulse Resp B/P (MAP) Pulse Ox O2 Delivery O2 Flow Rate FiO2 03/16/25 07:59 111 20 130/69 (89) 98 30 03/16/25 07:30 Mechanical Ventilator+ 03/16/25 07:30 10 03/16/25 04:00 97.4 97.4 Intake/Output Intake and Output 03/16/25 07:00 Intake Total 586.750 ml Output Total 35 ml Balance 551.750 ml IV Total 526.750 ml Tube Feeding 60 ml Output Urine Total 35 ml # Bowel Movements 1 Exam General: Mechanically ventilated, tracheostomy HEENT: Head is normocephalic and atraumatic. Pupils are equal, round, and reactive to light. tracheostomy present Neck: Supple with no cervical lymphadenopathy. Heart: Regular rate without murmur, rub, or gallop. Lungs: Mild bilateral diffuse crackles and scattered wheezing Abdomen: No external sign of injury. Bowel sounds are present. Abdomen is soft, nontender. Distended Extremities: Strong peripheral pulses. There is no clubbing, no cyanosis, and no edema. Skin: No rash. Medications Current Medications Medications Dose Ordered Sig/Adolfo Route Start Time Stop Time Status Last Admin Dose Admin Nitroglycerin 0.4 mg Q5MINP PRN SL 02/19/25 15:15 Ipratropium [place] 0.5 mg Q6HR NEB 02/19/25 18:00 03/16/25 06:51 0.5 MG Dextrose 50 ml UD PRN IV 02/22/25 07:15 Cancel Pantoprazole Sodium 40 mg DAILY IV 02/26/25 10:00 03/15/25 10:35 40 MG Levalbuterol HCl 1.25 mg Q6HR NEB 03/02/25 18:00 03/16/25 06:51 1.25 MG Epoetin Javan-epbx 10,000 unit 2XW SC 03/04/25 21:00 03/13/25 12:21 10,000 UNIT Enoxaparin Sodium 140 mg DAILY SC 03/05/25 10:00 UNV Diagnostic Test (Pha) 1 strip Q6HR 03/05/25 12:00 03/16/25 05:49 1 STRIP Insulin Human Regular Q6HR SC 03/05/25 12:00 03/12/25 06:02 2 UNITS Dextrose 50 ml UD PRN IV 03/05/25 07:30 Sodium Chloride 10 ml QSHIFT@10,22 IV 03/06/25 10:00 03/15/25 22:44 10 ML Norepinephrine Bitartrate 32 mg/ Sodium Chloride 250 ml @ 0.938 mls/ hr Q24H IV 03/07/25 09:00 03/15/25 11:22 1.875 MLS/HR Metoclopramide HCl 5 mg Q8HPRN IV 03/07/25 14:00 03/16/25 05:41 5 MG Albumin Human 50 ml @ 100 mls/hr ENRIQUE PRN IV 03/08/25 14:30 03/13/25 14:29 Cancel Enteral Nutritional Formula 1,000 ml 20ML/HR GT 03/09/25 23:30 03/11/25 08:22 1,000 ML Micafungin Sodium 100 mg/Sodium Chloride 100 ml @ 100 mls/hr DAILY IV 03/13/25 10:00 03/15/25 10:35 100 MLS/HR Potassium Chloride 100 ml @ 50 mls/hr Q2H IV 03/13/25 10:00 03/13/25 13:59 UNV Piperacillin Sod/ Tazobactam Sod 50 ml @ 12.5 mls/hr Q8HR IV 03/13/25 22:00 03/16/25 05:41 12.5 MLS/HR Levothyroxine Sodium 50 mcg QAM@0600 PO 03/15/25 06:00 03/16/25 05:42 50 MCG Metoprolol Tartrate 25 mg BID PO 03/14/25 12:00 Hold Laboratory Results Laboratory Tests 03/16/25 03:58 Chemistry Test 03/16/25 03:58 Albumin 2.8 g/dL (3.2-4.8) L Calcium Level 9.0 mg/dL (8.7-10.4) Magnesium Level 2.1 mg/dL (1.6-2.6) Total Protein 5.0 g/dL (5.7-8.2) L LFT Test 03/16/25 03:58 Alanine Aminotransferase (ALT) 14 U/L (7-40) Alkaline Phosphatase 140 U/L (46-116) H Aspartate Amino Transferase (AST) 10 U/L (13-40) L Total Bilirubin 0.5 mg/dL (0.2-1.0) Urinalysis Test 02/19/25 19:01 03/04/25 10:05 03/15/25 12:42 Urine Hyaline Casts Many /lpf (0 - 2) Urine Creatinine 57.03 mg/dL (30.0-125.0) Urine Sodium 50 mmol/L (40-220) Urine Total Protein 211.8 mg/dL (1-14) H Urine Color Light-orange (Yellow) Urine Clarity Turbid (Clear) H Urine pH 5.5 (5.0-9.0) Urine Specific [place] 1.015 (1.001-1.035) Urine Protein 2+ (Negative) H Urine Ketones Trace (Negative) Urine Blood 2+ /uL (Negative) H Urine Nitrite Negative (Negative) Urine Bilirubin Negative (Negative) Urine Urobilinogen Normal mg/dL (Negative) Urine Leukocyte Esterase 3+ /uL (Negative) Urine RBC 41 /hpf (0 - 4) Urine WBC Clumps Present /hpf (None Seen) Urine Microscopic WBC 92 /HPF (0-5) H Urine Squamous Epithelial Cells Few /hpf (<5) Urine Bacteria Few /hpf (None Seen) H Urine Yeast (Budding) Many /hpf (None Seen) Urine Glucose Normal mg/dL (Normal) Blood Gas Results Test 03/16/25 06:50 Arterial Blood pH 7.408 (7.350-7.450) FiO2 % 30.0 Microbiology Microbiology Date/Time Source Procedure Growth Status 03/14/25 12:10 Blood Blood Culture - Preliminary NO GROWTH AFTER 24 HOURS OF INCUBATION. Resulted 03/07/25 20:36 Urine - [place] Urine Culture - Final Yeast, not Rekha albicans Complete 03/03/25 16:40 Sputum Gram Stain - Final Complete 03/03/25 16:40 Sputum Respiratory Culture - Final Complete 02/21/25 09:30 Nose MRSA Screen - Final Complete Labs and/or images reviewed: Labs reviewed by me, Image(s) reviewed by me Assessment/Plan Assessment/Plan 03/16- primary ICU team has plan for transfer to LTAC. Patient was on Levophed, Zosyn. Patient was ventilated. Levophed at 4. Vent settings VC 400/18/5/30%. Patient AFib rate increased slightly. I will continue primary team and Cardiology recommendation of daily digoxin 0.25mg added. Otherwise continue primary plan from primary team and continue transfer to LTAC. Continue all other medications as primary team outlined. Neurology #Metabolic encephalopathy due to sepsis On fentanyl and propofol, off Cardiovascular #Acute on chronic diastolic CHF with RV failure #Pulmonary hypertension, class 2 vs 3, moderate-severe #NSTEMI likely type 2 #Atrial fibrillation with rapid ventricular rate #Tricuspid regurgitation, zvimmprb-kr-bwsvgb degree #Pericardial effusion On hemodialysis as needed Cardiology following Held Lovenox 1mg/kg qd due to thrombocytopenia and active bleeding digoxin 0.25mg daily Pulmonology #Acute on chronic hypoxic and hypercarbic respiratory failure, on mechanical ventilator, s/p tracheostomy #Obstructive sleep apnea #Obesity hypoventilation syndrome #Respiratory acidosis, compensated #Pneumonia, gram (+) vs gram (-), atypicals #COPD exacerbation #Mucous plugs s/p bronch 03/03/25 On trach collar DuoNebs q6hrs zosyn IV Tracheostomy by dr. forman Nephrology #AN, likely ATN Monitor, continue HD Nephrology following Endocrinology #Morbid obesity Gastroenterology #Bowel distention, possible SBO, ileus #Constipation Reviewed KUB, cannot fit CAT scan Consulted GI for decompression, performed on 03/07/25 intrabdominal pressure down from 19-13 to 8 on 03/11/25 tube feeding: Glucerna #Transaminitis, likely due to sepsis Monitor, trending down Hematology and Oncology #Thrombocytopenia likely due to sepsis monitor ordered desmopressin one time sp transfused 1 unit of platelets #Anemia normocytic normochromic Monitor, currently stable Infectious Disease #Septic shock due to Pneumonia, gram (+) vs gram (-), atypicals Zosyn IV #UTI, complicated, growing VRE possible colonization #Fungal UTI Micafungin iv panculture ordered Dermatology X Gynecology #Vaginal bleeding Consulted [employer], bleeding intermittently Pelvic US: Unable to visualize uterus and both ovaries. DVT ppx Lovenox PUD ppx Protonix Drips Levo 4 Vasopressin off Fent off Propofol off Lines PICC line 03/06/25 PRITI right, non-tunneled dialysis 03/03/25 ReIntubated 03/03/25 Intubated 02/20, extubated 03/01, tracheostomy 03/12/25 Plan discussed with: Other My Orders Orders - ZEINA CARPIO MD Procedure Category Date Status Time Digoxin Tablet PHA 03/16/25 Verified (Lanoxin Tablet) 10:00 Date of Service: Mar 16, 2025 Billing Provider: ZEINA CARPIO MD Common Visit Codes: 80674-[id number] CARE 30-74 MIN ZEINA CARPIO MD Mar 16, 2025 08:18
[2025-03-16] MEDS: DIGOXIN 0.125 MG TAB PO SCH (09:18)
[2025-03-16] MEDS: NOREPINEPHRINE BITARTRATE 32 MG in SODIUM CHL 0.9% 218 ML IV SCH (09:18)
--- NOTE | 2025-03-16 12:19 | DVHPN2 ---
Progress Note - Dictate Date Seen: Mar 16, 2025 Medical Necessity Reason Pt with a Central, PICC or Fol: Yes The following are medically ne: Serrano Catheter Reason for serrano catheter: Strict I&O Subjective Patient's family member at bedside, patient clinically unchanged vital signs Vital Sign Date Time Temp Pulse Resp B/P (MAP) Pulse Ox O2 Delivery O2 Flow Rate FiO2 03/16/25 11:49 110 20 97 03/16/25 10:26 30 03/16/25 10:26 Mechanical Ventilator+ 03/16/25 10:15 115/59 (77) 03/16/25 10:13 8 03/16/25 08:00 97.8 97.8 Total Intake and Output 03/15/25 03/15/25 03/16/25 15:00 23:00 07:00 Intake Total 127.500 ml 136.250 ml 335.50 ml Output Total 20 ml 15 ml Balance 127.500 ml 116.250 ml 320.50 ml medications Current Medications Medications Dose Ordered Sig/Adolfo Route Start Time Stop Time Status Last Admin Dose Admin Nitroglycerin 0.4 mg Q5MINP PRN SL 02/19/25 15:15 Ipratropium [place] 0.5 mg Q6HR NEB 02/19/25 18:00 03/16/25 11:49 0.5 MG Dextrose 50 ml UD PRN IV 02/22/25 07:15 Cancel Pantoprazole Sodium 40 mg DAILY IV 02/26/25 10:00 03/16/25 09:18 40 MG Levalbuterol HCl 1.25 mg Q6HR NEB 03/02/25 18:00 03/16/25 11:49 1.25 MG Epoetin Javan-epbx 10,000 unit 2XW SC 03/04/25 21:00 03/13/25 12:21 10,000 UNIT Enoxaparin Sodium 140 mg DAILY SC 03/05/25 10:00 UNV Diagnostic Test (Pha) 1 strip Q6HR 03/05/25 12:00 03/16/25 05:49 1 STRIP Insulin Human Regular Q6HR SC 03/05/25 12:00 03/12/25 06:02 2 UNITS Dextrose 50 ml UD PRN IV 03/05/25 07:30 Sodium Chloride 10 ml QSHIFT@, IV 03/06/25 10:00 03/16/25 09:18 10 ML Metoclopramide HCl 5 mg Q8HPRN IV 03/07/25 14:00 03/16/25 05:41 5 MG Albumin Human 50 ml @ 100 mls/hr ENRIQUE PRN IV 03/08/25 14:30 03/13/25 14:29 Cancel Enteral Nutritional Formula 1,000 ml 20ML/HR GT 03/09/25 23:30 03/11/25 08:22 1,000 ML Micafungin Sodium 100 mg/Sodium Chloride 100 ml @ 100 mls/hr DAILY IV 03/13/25 10:00 03/16/25 09:18 100 MLS/HR Potassium Chloride 100 ml @ 50 mls/hr Q2H IV 03/13/25 10:00 03/13/25 13:59 UNV Piperacillin Sod/ Tazobactam Sod 50 ml @ 12.5 mls/hr Q8HR IV 03/13/25 22:00 03/16/25 05:41 12.5 MLS/HR Levothyroxine Sodium 50 mcg QAM@0600 PO 03/15/25 06:00 03/16/25 05:42 50 MCG Metoprolol Tartrate 25 mg BID PO 03/14/25 12:00 Hold Digoxin 0.25 mg DAILY PO 03/16/25 10:00 Norepinephrine Bitartrate 32 mg/ Sodium Chloride 250 ml @ 0.938 mls/ hr Q24H IV 03/16/25 09:00 03/16/25 09:18 1.875 MLS/HR objective gen: somnolent, on trac collar lungs: adequate air exchange ext: + edema laboratory and microbiology Laboratory Tests 03/16/25 03:58 Test 03/16/25 03:58 Range/Units Serum Glucose 96 74-106 mg/dL Assessment/Plan Problem List/Assessment/Plan Acute kidney injury due to shock-> acute HD ckd 3a respiratory failure-> s/p trach CHF w/ pulm HTN Illeus COPD, morbid obesity sepsis Iron deficiency anemia thrombocytopenia - daily evaluation for dialysis - urine volumes remain minimal - trial of high-dose loop diuretic x1 dose today Dietary Evaluation Review Comments: 1. Disagree with current TF orders, change to Vital HP @ 40 ml/hr continuously 2. Provide free water flushes of 30 ml Q8 hrs (90 ml total); adjust PRN 3. Monitor BMP/lytes and replete to WNL 4. When appropriate for oral diet, recommend Cardiac diet as tolerated TF Provision: TF at goal to provide 960 ml total volume, 960 kcal (+958 kcal via propofol = 1918 kcal), 84 gm pro, 0 gm fiber, 107 gm CHO, 801 ml H20 (meets 100% est. kcal needs, 100% est. pro needs) Expected Outcomes/Goals: Improved nutritional status, hemodynamic stability. Plan discussed with: Spouse STEVO ROTH MD Mar 16, 2025 12:19
[2025-03-16] MEDS: BUMETANIDE 2.5mg/10ml (0.25 mg/ml) INJ IV ONE (13:04)
[2025-03-16] MEDS ORDERED: EPOETIN ALFA-EPBX 4,000 UNIT/ML VIAL SC SCH (13:07)
[2025-03-16] MEDS: PIPERACILLIN-TAZOB 3.375GM 100 ML IV SCH (23:13)
--- NOTE | 2025-03-16 23:24 | DVHPN2 ---
Progress Note - Dictate Date Seen: Mar 16, 2025 Medical Necessity Reason Pt with a Central, PICC or Fol: Yes The following are medically ne: Serrano Catheter Reason for serrano catheter: Strict I&O Subjective Patient seen and examined at bedside. On mechanical ventilator, s/p trach. Overnight events reviewed. vital signs Vital Sign Date Time Temp Pulse Resp B/P (MAP) Pulse Ox O2 Delivery O2 Flow Rate FiO2 03/16/25 22:07 86 18 121/58 (79) 100 30 03/16/25 18:20 Trach Collar 8.0 03/16/25 16:00 97.9 97.9 Total Intake and Output 03/15/25 03/15/25 03/16/25 15:00 23:00 07:00 Intake Total 127.500 ml 136.250 ml 335.50 ml Output Total 20 ml 15 ml Balance 127.500 ml 116.250 ml 320.50 ml medications Current Medications Medications Dose Ordered Sig/Adolfo Route Start Time Stop Time Status Last Admin Dose Admin Nitroglycerin 0.4 mg Q5MINP PRN SL 02/19/25 15:15 Ipratropium [place] 0.5 mg Q6HR NEB 02/19/25 18:00 03/16/25 18:20 0.5 MG Dextrose 50 ml UD PRN IV 02/22/25 07:15 Cancel Pantoprazole Sodium 40 mg DAILY IV 02/26/25 10:00 03/16/25 09:18 40 MG Levalbuterol HCl 1.25 mg Q6HR NEB 03/02/25 18:00 03/16/25 18:20 1.25 MG Enoxaparin Sodium 140 mg DAILY SC 03/05/25 10:00 UNV Diagnostic Test (Pha) 1 strip Q6HR 03/05/25 12:00 03/16/25 23:18 1 STRIP Insulin Human Regular Q6HR SC 03/05/25 12:00 03/12/25 06:02 2 UNITS Dextrose 50 ml UD PRN IV 03/05/25 07:30 Sodium Chloride 10 ml QSHIFT@10, IV 03/06/25 10:00 03/16/25 23:13 10 ML Metoclopramide HCl 5 mg Q8HPRN IV 03/07/25 14:00 03/16/25 23:13 5 MG Albumin Human 50 ml @ 100 mls/hr ENRIQUE PRN IV 03/08/25 14:30 03/13/25 14:29 Cancel Enteral Nutritional Formula 1,000 ml 20ML/HR GT 03/09/25 23:30 03/11/25 08:22 1,000 ML Micafungin Sodium 100 mg/Sodium Chloride 100 ml @ 100 mls/hr DAILY IV 03/13/25 10:00 03/16/25 09:18 100 MLS/HR Potassium Chloride 100 ml @ 50 mls/hr Q2H IV 03/13/25 10:00 03/13/25 13:59 UNV Levothyroxine Sodium 50 mcg QAM@0600 PO 03/15/25 06:00 03/16/25 05:42 50 MCG Metoprolol Tartrate 25 mg BID PO 03/14/25 12:00 Hold Digoxin 0.25 mg DAILY PO 03/16/25 10:00 Norepinephrine Bitartrate 32 mg/ Sodium Chloride 250 ml @ 0.938 mls/ hr Q24H IV 03/16/25 09:00 03/16/25 09:18 1.875 MLS/HR Epoetin Javan-epbx 10,000 unit 2XW SC 03/19/25 12:00 Piperacillin Sod/ Tazobactam Sod 100 ml @ 25 mls/hr Q12HR IV 03/16/25 22:00 03/16/25 23:13 25 MLS/HR objective Gen.: Patient lying in bed in medical ICU. On mechanical ventilator s/p trach. Head: Normocephalic, atraumatic. Eyes: PERRLA. Ears: Normal external anatomy. Throat: Endotracheal tube and orogastric tube in place. Neck: Trach in place. Chest: Transmitted breath sounds bilaterally. Decreased air entry bilaterally. No wheezing. Bibasilar crackles. Cardiovascular: Positive S1, positive S2. Regular rate and rhythm. Abdomen: Positive bowel sounds in all 4 quadrants. Soft, nontender, nondistended. : Serrano in place. Normal external genitalia. Rectal: Deferred. Skin: Warm, dry. Intact. Extremities: 2+ radial pulses bilaterally. No lower extremity edema. Neuro: Off sedation laboratory and microbiology Laboratory Tests 03/16/25 03:58 Test 03/16/25 03:58 Range/Units Serum Glucose 96 74-106 mg/dL Assessment/Plan Impression: Acute on chronic hypoxic respiratory failure Acute on chronic hypercarbic respiratory failure On mechanical ventilator S/p tracheostomy NSTEMI Pneumonia, Gram-positive/Gram-negative pneumonia COPD Obstructive sleep apnea Morbid obesity, BMI 63.4 Paroxysmal atrial fibrillation Events On mechanical ventilation S/p trach, on trach collar Vent settings; AC mode with RR 18, VT 400, PEEP 5, FiO2 30% Trach care per RT. Pressors as needed for hemodynamic support On Levophed 3 mcg/min To maintain a mean arterial pressure of 65 mmHg Continue bronchodilators Continue antibiotics Tube feeds for nutritional support Accu-Cheks, ISS PRN. CXR, ABG reviewed Management Vent support, s/p trach Titrate to maintain sats 90% or above Trach care Continue antibiotics F/u cultures Bronchodilators Monitor renal function F/u nephrology, management deferred Monitor electrolytes Supplement as needed Pressors as needed for hemodynamic support To maintain a mean arterial pressure of 65 mmHg DVT prophylaxis Condition: Critical Prognosis: Poor given multiple comorbidities. Rest of plan per hospitalist and other consultants. A total of 35 minutes of critical care time was spent reviewing the patient record, examining the patient, making a diagnostic and therapeutic plan, discussing this plan with the medical personnel, following up on diagnostic studies and following the patient for clinical stability excluding any and all procedures. At least 50% of this time was spent in direct, [id number] contact. Thank you Dr. Roa for allowing me to participate in this patient's care. Further recommendations will depend on patient's clinical course. Please do not hesitate to contact me if you have any questions or concerns. This medical document was created using an electronic medical record system with [employer] dictation system. Although this document has been carefully reviewed, there may still be some phonetic and typographical errors. These areas are purely typographical due to imperfections of the software programs, and do not reflect any compromise in the patient's medical care. Dietary Evaluation Review Comments: 1. Disagree with current TF orders, change to Vital HP @ 40 ml/hr continuously 2. Provide free water flushes of 30 ml Q8 hrs (90 ml total); adjust PRN 3. Monitor BMP/lytes and replete to WNL 4. When appropriate for oral diet, recommend Cardiac diet as tolerated TF Provision: TF at goal to provide 960 ml total volume, 960 kcal (+958 kcal via propofol = 1918 kcal), 84 gm pro, 0 gm fiber, 107 gm CHO, 801 ml H20 (meets 100% est. kcal needs, 100% est. pro needs) Expected Outcomes/Goals: Improved nutritional status, hemodynamic stability. Plan discussed with: Other (BETSEY Johnson) Critical Care Time(min): 35 RADHA BRANDT MD Mar 16, 2025 23:24
[2025-03-17] VITALS (101 sets, daily range): BP systolic 77–138; BP diastolic 26–71; PULSE 82–128; RESP 8–34; TEMP 98–99.4; O2SAT 92–99
[2025-03-17 04:15] LABS: Anion Gap 15 (5-15); Carbon Dioxide 23 mmol/L (20-31); Chloride 100 mmol/L (98-107); Potassium 3.9 mmol/L (3.5-5.1); Sodium 138 mmol/L (136-145)
[2025-03-17 04:16] LABS: Calcium 9.2 mg/dL (8.7-10.4)
[2025-03-17 04:21] LABS: BUN/Creatinine Ratio 11.3 (10.0-20.0); Blood Urea Nitrogen 36 mg/dL (9-23); Glucose 107 mg/dL (74-106)
--- NOTE | 2025-03-17 05:42 | DVH ---
CHEST RADIOGRAPH Indication: trached to vent Technique: Single frontal view of the chest was obtained Comparison: XY CHEST PORTABLE on DOS: 03/16/25, XY CHEST PORTABLE on DOS: 03/15/25, XY CHEST PORTABLE o n DOS: 03/14/25 IMPRESSION: Heart is significantly enlarged. Obscuration of the left hemidiaphragm may be on the basis of effusio n plus or minus atelectasis and consolidation. Moderate pulmonary vascular congestion. Subsegmental atelectasis in the right mid lung. Tracheostomy tube and enteric tube are present. Right IJ cathete r tip in the region of the superior vena cava.
[2025-03-17 09:14] LABS: Hemoglobin 9.1 g/dL (12.2-16.2)
[2025-03-17 09:16] LABS: Mean Corpuscular Hgb Conc. 32.5 g/dL (32.0-36.0); Mean Corpuscular Volume 95.2 fL (80.0-100.0); Platelet Count (auto) 49 10^3/uL (140-450); Red Blood Cells 2.95 10^6/uL (4.0-5.20); Red Cell Distribution Width 19.3 % (11.8-14.3)
[2025-03-17 09:20] LABS: White Blood Cell 1.2 10^3/uL (4.4-10.8)
[2025-03-17 09:22] LABS: Basophils % (manual) 0 (0.0-2.0); Blast Cells 0; Metamyelocytes % 0; Myelocytes % 0; Promyelocytes % 0; Reactive Lymphocytes 0
[2025-03-17 10:13] LABS: Band Neutrophils % (manual) 13; Eosinophils % (manual) 3 (0-7); Lymphocytes % (manual) 33 (10.0-50.0); Monocytes % (manual) 22 (0-12)
[2025-03-17 10:14] LABS: Anisocytosis Slight; Platelet Estimate Markedly Decreased
--- NOTE | 2025-03-17 12:07 | DVH ---
Upper Extremity Venous Duplex Clinical History: WARMTH REDNESS Comparison: US BILAT LOWER DVT on DOS: 04/04/24 Technique: Duplex Doppler evaluation of the venous system of the bilateral lower neck and upper extremities incl uding color Doppler and spectral/pulsed waveform analysis was performed. Findings: Right: The internal jugular and subclavian vein could not be evaluated due to overlying bandage. The axillary , brachial, radial and ulnar veins are compressible and patent. Kendall noted in the cep halic and basilic veins. Left: The internal jugular, subclavian, axillary, brachial, radial and ulnar veins are patent. Color flow noted in the cephalic and basilic veins. Moderate subcutaneous edema noted throughout the upper extremity. Impression: 1. No DVT or SVT in the bilateral upper extremities. Please note that the right internal jugular and subclavian veins could not be evaluated due to PICC line bandage. Moderate left upper extremity subcu taneous edema noted.
--- NOTE | 2025-03-17 12:43 | DVHPN2 ---
Progress Note - Dictate Date Seen: Mar 17, 2025 Medical Necessity Reason Pt with a Central, PICC or Fol: Yes The following are medically ne: Serrano Catheter Reason for serrano catheter: Strict I&O Subjective Patient resting comfortably this morning vital signs Vital Sign Date Time Temp Pulse Resp B/P (MAP) Pulse Ox O2 Delivery O2 Flow Rate FiO2 03/17/25 10:30 109 16 104/53 (70) 96 03/17/25 10:00 30 03/17/25 10:00 Trach Collar 8 03/17/25 10:00 99.2 99.2 Total Intake and Output 03/16/25 03/16/25 03/17/25 15:00 23:00 07:00 Intake Total 162.655 ml 176.4048 ml 354.531 ml Output Total 15 ml 20 ml Balance 162.655 ml 161.4048 ml 334.531 ml medications Current Medications Medications Dose Ordered Sig/Adolfo Route Start Time Stop Time Status Last Admin Dose Admin Nitroglycerin 0.4 mg Q5MINP PRN SL 02/19/25 15:15 Ipratropium Calcium 0.5 mg Q6HR NEB 02/19/25 18:00 03/17/25 11:52 0.5 MG Dextrose 50 ml UD PRN IV 02/22/25 07:15 Cancel Pantoprazole Sodium 40 mg DAILY IV 02/26/25 10:00 03/17/25 09:38 40 MG Levalbuterol HCl 1.25 mg Q6HR NEB 03/02/25 18:00 03/17/25 11:52 1.25 MG Enoxaparin Sodium 140 mg DAILY SC 03/05/25 10:00 UNV Diagnostic Test (Pha) 1 strip Q6HR 03/05/25 12:00 03/17/25 11:30 1 STRIP Insulin Human Regular Q6HR SC 03/05/25 12:00 03/12/25 06:02 2 UNITS Dextrose 50 ml UD PRN IV 03/05/25 07:30 Sodium Chloride 10 ml QSHIFT@10,22 IV 03/06/25 10:00 03/17/25 09:39 10 ML Metoclopramide HCl 5 mg Q8HPRN IV 03/07/25 14:00 03/17/25 05:49 5 MG Albumin Human 50 ml @ 100 mls/hr ENRIQUE PRN IV 03/08/25 14:30 03/13/25 14:29 Cancel Enteral Nutritional Formula 1,000 ml 20ML/HR GT 03/09/25 23:30 03/11/25 08:22 1,000 ML Micafungin Sodium 100 mg/Sodium Chloride 100 ml @ 100 mls/hr DAILY IV 03/13/25 10:00 03/17/25 08:23 100 MLS/HR Potassium Chloride 100 ml @ 50 mls/hr Q2H IV 03/13/25 10:00 03/13/25 13:59 UNV Levothyroxine Sodium 50 mcg QAM@0600 PO 03/15/25 06:00 03/17/25 05:49 50 MCG Metoprolol Tartrate 25 mg BID PO 03/14/25 12:00 Hold Digoxin 0.25 mg DAILY PO 03/16/25 10:00 03/17/25 09:39 0.25 MG Norepinephrine Bitartrate 32 mg/ Sodium Chloride 250 ml @ 0.938 mls/ hr Q24H IV 03/16/25 09:00 03/17/25 09:00 1.406 MLS/HR Epoetin Javan-epbx 10,000 unit 2XW SC 03/19/25 12:00 Piperacillin Sod/ Tazobactam Sod 100 ml @ 25 mls/hr Q12HR IV 03/16/25 22:00 03/17/25 09:39 25 MLS/HR objective gen: somnolent, on trac collar lungs: adequate air exchange ext: + edema laboratory and microbiology Laboratory Tests 03/17/25 08:42 03/17/25 03:31 Test 03/17/25 03:31 Range/Units Serum Glucose 107 H 74-106 mg/dL Assessment/Plan Problem List/Assessment/Plan Acute kidney injury/ oliguric ischemic ATN Leukopenia ckd 3a respiratory failure-> s/p trach CHF w/ pulm HTN Illeus COPD, morbid obesity sepsis Iron deficiency anemia thrombocytopenia - dialysis March 18 - no systemic heparin Dietary Evaluation Review Comments: 1. Disagree with current TF orders, change to Vital HP @ 40 ml/hr continuously 2. Provide free water flushes of 30 ml Q8 hrs (90 ml total); adjust PRN 3. Monitor BMP/lytes and replete to WNL 4. When appropriate for oral diet, recommend Cardiac diet as tolerated TF Provision: TF at goal to provide 960 ml total volume, 960 kcal (+958 kcal via propofol = 1918 kcal), 84 gm pro, 0 gm fiber, 107 gm CHO, 801 ml H20 (meets 100% est. kcal needs, 100% est. pro needs) Expected Outcomes/Goals: Improved nutritional status, hemodynamic stability. Plan discussed with: Other STEVO ROTH MD Mar 17, 2025 12:43
--- NOTE | 2025-03-17 12:58 | DVHPN2 ---
Subjective Update 03/16 03/16- primary ICU team has plan for transfer to LTAC. Patient was on Levophed, Zosyn. Patient was ventilated. Levophed at 4. Vent settings VC 400/18/5/30%. Patient AFib rate increased slightly. I will continue primary team and Cardiology recommendation of daily digoxin added. Otherwise continue primary plan from primary team and continue transfer to LTAC. Continue all other medications as primary team outlined. 03/17 no significant changes today, continue plan for transfer to LTAC. Remains on minimal settings on trach vent and Levophed. Heart rate improved, continue digoxin daily. Reviewed: H&P Changes from previous H/P or p: No Changes General: Per HPI Objective Vitals Vital Signs Date Time Temp Pulse Resp B/P (MAP) Pulse Ox O2 Delivery O2 Flow Rate FiO2 03/17/25 10:30 109 16 104/53 (70) 96 03/17/25 10:00 30 03/17/25 10:00 Trach Collar 8 03/17/25 10:00 99.2 99.2 Intake/Output Intake and Output 03/17/25 07:00 Intake Total 693.5908 ml Output Total 35 ml Balance 658.5908 ml Intake Oral 90 ml IV Total 323.5908 ml Tube Feeding 280 ml Output Urine Total 35 ml # Bowel Movements 1 Exam General: Mechanically ventilated, tracheostomy HEENT: Head is normocephalic and atraumatic. Pupils are equal, round, and reactive to light. tracheostomy present Neck: Supple with no cervical lymphadenopathy. Heart: Regular rate without murmur, rub, or gallop. Lungs: Mild bilateral diffuse crackles and scattered wheezing Abdomen: No external sign of injury. Bowel sounds are present. Abdomen is soft, nontender. Distended Extremities: Strong peripheral pulses. There is no clubbing, no cyanosis, and no edema. Skin: No rash. Medications Current Medications Medications Dose Ordered Sig/Adolfo Route Start Time Stop Time Status Last Admin Dose Admin Nitroglycerin 0.4 mg Q5MINP PRN SL 02/19/25 15:15 Ipratropium [place] 0.5 mg Q6HR NEB 02/19/25 18:00 03/17/25 11:52 0.5 MG Dextrose 50 ml UD PRN IV 02/22/25 07:15 Cancel Pantoprazole Sodium 40 mg DAILY IV 02/26/25 10:00 03/17/25 09:38 40 MG Levalbuterol HCl 1.25 mg Q6HR NEB 03/02/25 18:00 03/17/25 11:52 1.25 MG Enoxaparin Sodium 140 mg DAILY SC 03/05/25 10:00 UNV Diagnostic Test (Pha) 1 strip Q6HR 03/05/25 12:00 03/17/25 11:30 1 STRIP Insulin Human Regular Q6HR SC 03/05/25 12:00 03/12/25 06:02 2 UNITS Dextrose 50 ml UD PRN IV 03/05/25 07:30 Sodium Chloride 10 ml QSHIFT@10,22 IV 03/06/25 10:00 03/17/25 09:39 10 ML Metoclopramide HCl 5 mg Q8HPRN IV 03/07/25 14:00 03/17/25 05:49 5 MG Albumin Human 50 ml @ 100 mls/hr ENRIQUE PRN IV 03/08/25 14:30 03/13/25 14:29 Cancel Enteral Nutritional Formula 1,000 ml 20ML/HR GT 03/09/25 23:30 03/11/25 08:22 1,000 ML Micafungin Sodium 100 mg/Sodium Chloride 100 ml @ 100 mls/hr DAILY IV 03/13/25 10:00 03/17/25 08:23 100 MLS/HR Potassium Chloride 100 ml @ 50 mls/hr Q2H IV 03/13/25 10:00 03/13/25 13:59 UNV Levothyroxine Sodium 50 mcg QAM@0600 PO 03/15/25 06:00 03/17/25 05:49 50 MCG Metoprolol Tartrate 25 mg BID PO 03/14/25 12:00 Hold Digoxin 0.25 mg DAILY PO 03/16/25 10:00 03/17/25 09:39 0.25 MG Norepinephrine Bitartrate 32 mg/ Sodium Chloride 250 ml @ 0.938 mls/ hr Q24H IV 03/16/25 09:00 03/17/25 09:00 1.406 MLS/HR Epoetin Javan-epbx 10,000 unit 2XW SC 03/19/25 12:00 Piperacillin Sod/ Tazobactam Sod 100 ml @ 25 mls/hr Q12HR IV 03/16/25 22:00 03/17/25 09:39 25 MLS/HR Laboratory Results Laboratory Tests 03/17/25 03:31 03/17/25 08:42 Chemistry Test 03/17/25 03:31 Calcium Level 9.2 mg/dL (8.7-10.4) Urinalysis Test 02/19/25 19:01 03/04/25 10:05 03/15/25 12:42 Urine Hyaline Casts Many /lpf (0 - 2) Urine Creatinine 57.03 mg/dL (30.0-125.0) Urine Sodium 50 mmol/L (40-220) Urine Total Protein 211.8 mg/dL (1-14) H Urine Color Light-orange (Yellow) Urine Clarity Turbid (Clear) H Urine pH 5.5 (5.0-9.0) Urine Specific [place] 1.015 (1.001-1.035) Urine Protein 2+ (Negative) H Urine Ketones Trace (Negative) Urine Blood 2+ /uL (Negative) H Urine Nitrite Negative (Negative) Urine Bilirubin Negative (Negative) Urine Urobilinogen Normal mg/dL (Negative) Urine Leukocyte Esterase 3+ /uL (Negative) Urine RBC 41 /hpf (0 - 4) Urine WBC Clumps Present /hpf (None Seen) Urine Microscopic WBC 92 /HPF (0-5) H Urine Squamous Epithelial Cells Few /hpf (<5) Urine Bacteria Few /hpf (None Seen) H Urine Yeast (Budding) Many /hpf (None Seen) Urine Glucose Normal mg/dL (Normal) Microbiology Microbiology Date/Time Source Procedure Growth Status 03/14/25 12:10 Blood Blood Culture - Preliminary NO GROWTH AFTER 72 HOURS OF INCUBATION. Resulted 03/07/25 20:36 Urine - [place] Urine Culture - Final Yeast, not Rekha albicans Complete 03/03/25 16:40 Sputum Gram Stain - Final Complete 03/03/25 16:40 Sputum Respiratory Culture - Final Complete 02/21/25 09:30 Nose MRSA Screen - Final Complete Labs and/or images reviewed: Labs reviewed by me, Image(s) reviewed by me Assessment/Plan Assessment/Plan 03/17 no significant changes today, continue plan for transfer to LTAC. Remains on minimal settings on trach vent and Levophed. Heart rate improved, continue digoxin daily. Neurology #Metabolic encephalopathy due to sepsis On fentanyl and propofol, off Cardiovascular #Acute on chronic diastolic CHF with RV failure #Pulmonary hypertension, class 2 vs 3, moderate-severe #NSTEMI likely type 2 #Atrial fibrillation with rapid ventricular rate #Tricuspid regurgitation, [id number] degree #Pericardial effusion On hemodialysis as needed Cardiology following Held Lovenox 1mg/kg qd due to thrombocytopenia and active bleeding digoxin 0.25mg daily Pulmonology #Acute on chronic hypoxic and hypercarbic respiratory failure, on mechanical ventilator, s/p tracheostomy #Obstructive sleep apnea #Obesity hypoventilation syndrome #Respiratory acidosis, compensated #Pneumonia, gram (+) vs gram (-), atypicals #COPD exacerbation #Mucous plugs s/p bronch 03/03/25 On trach collar DuoNebs q6hrs zosyn IV Tracheostomy by dr. forman Nephrology #AN, likely ATN Monitor, continue HD Nephrology following Endocrinology #Morbid obesity Gastroenterology #Bowel distention, possible SBO, ileus #Constipation Reviewed KUB, cannot fit CAT scan Consulted GI for decompression, performed on 03/07/25 intrabdominal pressure down from 19-13 to 8 on 03/11/25 tube feeding: Glucerna #Transaminitis, likely due to sepsis Monitor, trending down Hematology and Oncology #Thrombocytopenia likely due to sepsis monitor ordered desmopressin one time sp transfused 1 unit of platelets #Anemia normocytic normochromic Monitor, currently stable Infectious Disease #Septic shock due to Pneumonia, gram (+) vs gram (-), atypicals Zosyn IV #UTI, complicated, growing VRE possible colonization #Fungal UTI Micafungin iv panculture ordered Dermatology X Gynecology #Vaginal bleeding 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 DVT ppx Lovenox PUD ppx Protonix Drips Levo 4 Vasopressin off Fent off Propofol off Lines PICC line 03/06/25 PRITI right, non-tunneled dialysis 03/03/25 ReIntubated 03/03/25 Intubated 1st 02/20, extubated 03/01, tracheostomy 03/12/25 Plan discussed with: Other My Orders Orders - ZEINA CARPIO MD Procedure Category Date Status Time Chest Portable XY 03/17/25 Resulted 04:00 Bi Lat Upper Dvt US 03/17/25 Resulted 10:04 Date of Service: Mar 17, 2025 Billing Provider: ZEINA CARPIO MD Common Visit Codes: [id number] CARE 30-74 MIN ZEINA CARPIO MD Mar 17, 2025 12:58
--- NOTE | 2025-03-17 23:45 | DVHPN2 ---
Progress Note - Dictate Date Seen: Mar 17, 2025 Medical Necessity Reason Pt with a Central, PICC or Fol: Yes The following are medically ne: Serrano Catheter Reason for serrano catheter: Strict I&O Subjective Patient seen and examined at bedside. On supplemental oxygen via trach collar Overnight events reviewed. vital signs Vital Sign Date Time Temp Pulse Resp B/P (MAP) Pulse Ox O2 Delivery O2 Flow Rate FiO2 03/17/25 23:15 85 16 106/52 (70) 96 03/17/25 23:05 30 03/17/25 22:00 Trach Collar 10 03/17/25 20:00 98.2 98.2 Total Intake and Output 03/16/25 03/16/25 03/17/25 15:00 23:00 07:00 Intake Total 162.655 ml 176.4048 ml 354.531 ml Output Total 15 ml 20 ml Balance 162.655 ml 161.4048 ml 334.531 ml medications Current Medications Medications Dose Ordered Sig/Adolfo Route Start Time Stop Time Status Last Admin Dose Admin Nitroglycerin 0.4 mg Q5MINP PRN SL 02/19/25 15:15 Ipratropium [place] 0.5 mg Q6HR NEB 02/19/25 18:00 03/17/25 18:27 0.5 MG Dextrose 50 ml UD PRN IV 02/22/25 07:15 Cancel Pantoprazole Sodium 40 mg DAILY IV 02/26/25 10:00 03/17/25 09:38 40 MG Levalbuterol HCl 1.25 mg Q6HR NEB 03/02/25 18:00 03/17/25 18:27 1.25 MG Enoxaparin Sodium 140 mg DAILY SC 03/05/25 10:00 UNV Diagnostic Test (Pha) 1 strip Q6HR 03/05/25 12:00 03/17/25 23:35 1 STRIP Insulin Human Regular Q6HR SC 03/05/25 12:00 03/17/25 17:59 2 UNITS Dextrose 50 ml UD PRN IV 03/05/25 07:30 Sodium Chloride 10 ml QSHIFT@10,22 IV 03/06/25 10:00 03/17/25 21:38 10 ML Metoclopramide HCl 5 mg Q8HPRN IV 03/07/25 14:00 03/17/25 21:38 5 MG Albumin Human 50 ml @ 100 mls/hr ENRIQUE PRN IV 03/08/25 14:30 03/13/25 14:29 Cancel Enteral Nutritional Formula 1,000 ml 20ML/HR GT 03/09/25 23:30 03/11/25 08:22 1,000 ML Micafungin Sodium 100 mg/Sodium Chloride 100 ml @ 100 mls/hr DAILY IV 03/13/25 10:00 03/17/25 08:23 100 MLS/HR Potassium Chloride 100 ml @ 50 mls/hr Q2H IV 03/13/25 10:00 03/13/25 13:59 UNV Levothyroxine Sodium 50 mcg QAM@0600 PO 03/15/25 06:00 03/17/25 05:49 50 MCG Metoprolol Tartrate 25 mg BID PO 03/14/25 12:00 Hold Digoxin 0.25 mg DAILY PO 03/16/25 10:00 03/17/25 09:39 0.25 MG Norepinephrine Bitartrate 32 mg/ Sodium Chloride 250 ml @ 0.938 mls/ hr Q24H IV 03/16/25 09:00 03/17/25 09:00 1.406 MLS/HR Epoetin Javan-epbx 10,000 unit 2XW SC 03/19/25 12:00 Piperacillin Sod/ Tazobactam Sod 100 ml @ 25 mls/hr Q12HR IV 03/16/25 22:00 03/17/25 21:38 25 MLS/HR objective Gen.: Patient lying in bed in no apparent distress. S/p trach, trach collar -on supplemental oxygen. Head: Normocephalic, atraumatic. Eyes: EOMI/PERRLA. Ears: Normal hearing. Normal anatomy. Neck/trachea: Trach in place Nose: Normal external anatomy. Mouth: Moist mucous membranes. Chest: Decreased air entry bilaterally. No wheezing or rhonchi. Cardiovascular: Positive S1, positive S2. Regular rate and rhythm. Abdomen: Positive bowel sounds in all 4 quadrants. Soft, non-tender, non- distended. : Deferred. Rectal: Deferred. Skin: Warm, dry. Intact. Extremities: 2+ radial pulses bilaterally. No lower extremity edema. Neuro: Awake, alert, oriented x3. No gross motor or sensory deficits. Cranial nerves II through XII intact. Gait not assessed. laboratory and microbiology Laboratory Tests 03/17/25 08:42 03/17/25 03:31 Test 03/17/25 03:31 Range/Units Serum Glucose 107 H 74-106 mg/dL Assessment/Plan Impression: Acute on chronic hypoxic respiratory failure Acute on chronic hypercarbic respiratory failure S/p tracheostomy NSTEMI Pneumonia, Gram-positive/Gram-negative pneumonia COPD Obstructive sleep apnea Morbid obesity, BMI 63.4 Paroxysmal atrial fibrillation Events S/p trach, on trach collar On supplemental O2 via trach Trach care per RT. Pulmonary toileting Pressors as needed for hemodynamic support On Levophed 10 mcg/min To maintain a mean arterial pressure of 65 mmHg Continue bronchodilators Continue antibiotics Tube feeds for nutritional support Head of bed elevation Aspiration precautions Accu-Cheks, ISS PRN. Labs and imaging reviewed Management s/p trach Supplemental oxygen Titrate to maintain sats 90% or above Place on full vent support if necessary Trach care Pulmonary toileting Continue antibiotics F/u cultures Bronchodilators Monitor renal function F/u nephrology, management deferred Monitor electrolytes Supplement as needed Pressors as needed for hemodynamic support To maintain a mean arterial pressure of 65 mmHg DVT prophylaxis Condition: Critical Prognosis: Poor given multiple comorbidities. Rest of plan per hospitalist and other consultants. A total of 35 minutes of critical care time was spent reviewing the patient record, examining the patient, making a diagnostic and therapeutic plan, discussing this plan with the medical personnel, following up on diagnostic studies and following the patient for clinical stability excluding any and all procedures. At least 50% of this time was spent in direct, [id number] contact. Thank you Dr. Roa for allowing me to participate in this patient's care. Further recommendations will depend on patient's clinical course. Please do not hesitate to contact me if you have any questions or concerns. This medical document was created using an electronic medical record system with [employer] dictation system. Although this document has been carefully reviewed, there may still be some phonetic and typographical errors. These areas are purely typographical due to imperfections of the software programs, and do not reflect any compromise in the patient's medical care. Dietary Evaluation Review Comments: 1. Disagree with current TF orders, change to Vital HP @ 40 ml/hr continuously 2. Provide free water flushes of 30 ml Q8 hrs (90 ml total); adjust PRN 3. Monitor BMP/lytes and replete to WNL 4. When appropriate for oral diet, recommend Cardiac diet as tolerated TF Provision: TF at goal to provide 960 ml total volume, 960 kcal (+958 kcal via propofol = 1918 kcal), 84 gm pro, 0 gm fiber, 107 gm CHO, 801 ml H20 (meets 100% est. kcal needs, 100% est. pro needs) Expected Outcomes/Goals: Improved nutritional status, hemodynamic stability. Plan discussed with: Other (BETSEY Mcintyre) Critical Care Time(min): 35 RADHA BRANDT MD Mar 17, 2025 23:45
[2025-03-18] VITALS (105 sets, daily range): BP systolic 86–149; BP diastolic 27–83; PULSE 69–127; RESP 9–35; TEMP 98.2–99.2; O2SAT 90–99
--- NOTE | 2025-03-18 04:30 | DVH ---
CHEST RADIOGRAPH Indication: Intubated Technique: Single frontal view of the chest was obtained Comparison: XY CHEST PORTABLE on DOS: 03/17/25 FINDINGS: Lines and Tubes: Tracheostomy tube is unchanged. Right central venous catheter terminates in the sup erior vena cava. The enteric tube terminates below the left hemidiaphragm outside the field of view. Lungs: Mild bilateral opacities decreased since prior study. Pleura: No effusion. No pneumothorax. Cardiomediastinal contours: Cardiomegaly, stable. Bones: No acute osseous abnormality. IMPRESSION: 1. Decreased pulmonary vascular congestion.
[2025-03-18 04:37] LABS: Anion Gap 16 (5-15); Calcium 9.6 mg/dL (8.7-10.4); Carbon Dioxide 23 mmol/L (20-31); Chloride 101 mmol/L (98-107); Potassium 3.9 mmol/L (3.5-5.1); Sodium 140 mmol/L (136-145)
[2025-03-18 04:43] LABS: BUN/Creatinine Ratio 11.6 (10.0-20.0)
[2025-03-18 04:45] LABS: % Iron Saturation 37.8 % (15-50)
[2025-03-18 04:47] LABS: Blood Urea Nitrogen 42 mg/dL (9-23); Glucose 120 mg/dL (74-106)
[2025-03-18 05:07] LABS: Hemoglobin 9.1 g/dL (12.2-16.2); Platelet Count (auto) 59 10^3/uL (140-450)
[2025-03-18 05:09] LABS: Hematocrit 28.3 % (36.0-46.0); Mean Corpuscular Hemoglobin 31.2 pg (28.0-32.0); Mean Corpuscular Hgb Conc. 32.2 g/dL (32.0-36.0); Mean Corpuscular Volume 97.1 fL (80.0-100.0); Red Blood Cells 2.91 10^6/uL (4.0-5.20); Red Cell Distribution Width 19.5 % (11.8-14.3)
[2025-03-18 05:15] LABS: White Blood Cell 1.5 10^3/uL (4.4-10.8)
[2025-03-18 05:16] LABS: Basophils % (manual) 0 (0.0-2.0); Blast Cells 0; Metamyelocytes % 0; Myelocytes % 0; Promyelocytes % 0; Reactive Lymphocytes 0
[2025-03-18 06:48] LABS: Band Neutrophils % (manual) 13; Eosinophils % (manual) 5 (0-7); Lymphocytes % (manual) 48 (10.0-50.0); Monocytes % (manual) 21 (0-12)
[2025-03-18 06:49] LABS: Platelet Estimate Markedly Decreased
[2025-03-18] MEDS: SODIUM CHL 0.9% 1000 ML BAG XX ONE (07:00)
[2025-03-18 09:42] LABS: Hemoglobin 9.3 g/dL (12.2-16.2)
[2025-03-18 09:44] LABS: Hematocrit 28.1 % (36.0-46.0)
--- NOTE | 2025-03-18 12:57 | DVHPN2 ---
Progress Note Date Seen: Mar 18, 2025 Medical Necessity Reason Pt with a Central, PICC or Fol: Yes The following are medically ne: Serrano Catheter Reason for serrano catheter: Strict I&O Subjective Patient reports: Other (intubated , trach ) Review of Systems: RESPIRATORY:Abnormal Objective vital signs Vital Sign Date Time Temp Pulse Resp B/P (MAP) Pulse Ox O2 Delivery O2 Flow Rate FiO2 03/18/25 11:34 106 03/18/25 09:36 18 109/60 (76) 96 30 03/18/25 08:00 Mechanical Ventilator+ 03/18/25 04:30 98.2 98.2 03/17/25 22:00 10 Total Intake and Output 03/17/25 03/17/25 03/18/25 15:00 23:00 07:00 Intake Total 444.686 ml 310.157 ml 422.813 ml Output Total 50 ml 15 ml Balance 444.686 ml 260.157 ml 407.813 ml medications Current Medications Medications Dose Ordered Sig/Adolfo Route Start Time Stop Time Status Last Admin Dose Admin Ipratropium [place] 0.5 mg Q6HR NEB 02/19/25 18:00 03/18/25 11:55 0.5 MG Dextrose 50 ml UD PRN IV 02/22/25 07:15 Cancel Pantoprazole Sodium 40 mg DAILY IV 02/26/25 10:00 03/18/25 11:33 40 MG Levalbuterol HCl 1.25 mg Q6HR NEB 03/02/25 18:00 03/18/25 11:55 1.25 MG Enoxaparin Sodium 140 mg DAILY SC 03/05/25 10:00 UNV Diagnostic Test (Pha) 1 strip Q6HR 03/05/25 12:00 03/18/25 12:10 1 STRIP Insulin Human Regular Q6HR SC 03/05/25 12:00 03/17/25 17:59 2 UNITS Dextrose 50 ml UD PRN IV 03/05/25 07:30 Sodium Chloride 10 ml QSHIFT@ IV 03/06/25 10:00 03/18/25 11:34 10 ML Metoclopramide HCl 5 mg Q8HPRN IV 03/07/25 14:00 03/18/25 04:57 5 MG Albumin Human 50 ml @ 100 mls/hr ENRIQUE PRN IV 03/08/25 14:30 03/13/25 14:29 Cancel Enteral Nutritional Formula 1,000 ml 20ML/HR GT 03/09/25 23:30 03/11/25 08:22 1,000 ML Micafungin Sodium 100 mg/Sodium Chloride 100 ml @ 100 mls/hr DAILY IV 03/13/25 10:00 03/18/25 11:41 100 MLS/HR Potassium Chloride 100 ml @ 50 mls/hr Q2H IV 03/13/25 10:00 03/13/25 13:59 UNV Levothyroxine Sodium 50 mcg QAM@0600 PO 03/15/25 06:00 03/18/25 04:57 50 MCG Norepinephrine Bitartrate 32 mg/ Sodium Chloride 250 ml @ 0.938 mls/ hr Q24H IV 03/16/25 09:00 03/17/25 09:00 1.406 MLS/HR Epoetin Javan-epbx 10,000 unit 2XW SC 03/19/25 12:00 Piperacillin Sod/ Tazobactam Sod 100 ml @ 25 mls/hr Q12HR IV 03/16/25 22:00 03/17/25 21:38 25 MLS/HR Examination: GENERAL:Abnormal, LUNGS:Abnormal, ABDOMEN:Normal laboratory and microbiology Laboratory Tests 03/18/25 09:00 03/18/25 04:54 03/18/25 03:56 Test 03/18/25 03:56 Range/Units Serum Glucose 120 H 74-106 mg/dL Microbiology Date/Time Source Procedure Growth Status 03/14/25 12:10 Blood Blood Culture - Preliminary NO GROWTH AFTER 72 HOURS OF INCUBATION. Resulted 03/07/25 20:36 Urine - [place] Urine Culture - Final Yeast, not Rekha albicans Complete 03/03/25 16:40 Sputum Gram Stain - Final Complete 03/03/25 16:40 Sputum Respiratory Culture - Final Complete 02/21/25 09:30 Nose MRSA Screen - Final Complete Problem List/Assessment/Plan Problem List/Assessment/Plan Acute kidney injury due to shock-> acute HD ckd 3a respiratory failure-> s/p trach CHF w/ pulm HTN Illeus COPD, morbid obesity sepsis Iron deficiency anemia thrombocytopenia stable vitals, labs reviewed HD today no heparin IV iron ABX as per primary team Plan discussed with: Other Dietary Evaluation Review Comments: 1. Disagree with current TF orders, change to Vital HP @ 40 ml/hr continuously 2. Provide free water flushes of 30 ml Q8 hrs (90 ml total); adjust PRN 3. Monitor BMP/lytes and replete to WNL 4. When appropriate for oral diet, recommend Cardiac diet as tolerated TF Provision: TF at goal to provide 960 ml total volume, 960 kcal (+958 kcal via propofol = 1918 kcal), 84 gm pro, 0 gm fiber, 107 gm CHO, 801 ml H20 (meets 100% est. kcal needs, 100% est. pro needs) Expected Outcomes/Goals: Improved nutritional status, hemodynamic stability. AMINAH HAIDER MD Mar 18, 2025 12:57
[2025-03-18] MEDS: FILGRASTIM(TBO) 480 MCG/0.8 ML SYRG SC ONE (14:35)
--- NOTE | 2025-03-18 17:31 | DVHPN2 ---
Progress Note - Dictate Date Seen: Mar 18, 2025 Medical Necessity Reason Pt with a Central, PICC or Fol: Yes The following are medically ne: Serrano Catheter Reason for serrano catheter: Strict I&O Subjective patient is S/P tracheostomy Now on a trach collar, FiO2 30% Pt has been moving her bowels daily Abdomen is softer and less distended Mild to moderate Pancytopenia vital signs Vital Sign Date Time Temp Pulse Resp B/P (MAP) Pulse Ox O2 Delivery O2 Flow Rate FiO2 03/18/25 17:15 86 20 90/44 (59) 94 03/18/25 16:00 Trach Collar 10 30 30 03/18/25 16:00 98.7 98.7 Total Intake and Output 03/17/25 03/17/25 03/18/25 15:00 23:00 07:00 Intake Total 444.686 ml 310.157 ml 422.813 ml Output Total 50 ml 15 ml Balance 444.686 ml 260.157 ml 407.813 ml medications Current Medications Medications Dose Ordered Sig/Adolfo Route Start Time Stop Time Status Last Admin Dose Admin Ipratropium [place] 0.5 mg Q6HR NEB 02/19/25 18:00 03/18/25 11:55 0.5 MG Dextrose 50 ml UD PRN IV 02/22/25 07:15 Cancel Pantoprazole Sodium 40 mg DAILY IV 02/26/25 10:00 03/18/25 11:33 40 MG Levalbuterol HCl 1.25 mg Q6HR NEB 03/02/25 18:00 03/18/25 11:55 1.25 MG Enoxaparin Sodium 140 mg DAILY SC 03/05/25 10:00 UNV Diagnostic Test (Pha) 1 strip Q6HR 03/05/25 12:00 03/18/25 12:10 1 STRIP Insulin Human Regular Q6HR SC 03/05/25 12:00 03/17/25 17:59 2 UNITS Dextrose 50 ml UD PRN IV 03/05/25 07:30 Sodium Chloride 10 ml QSHIFT@10,22 IV 03/06/25 10:00 03/18/25 11:34 10 ML Metoclopramide HCl 5 mg Q8HPRN IV 03/07/25 14:00 03/18/25 14:39 5 MG Albumin Human 50 ml @ 100 mls/hr ENRIQUE PRN IV 03/08/25 14:30 03/13/25 14:29 Cancel Enteral Nutritional Formula 1,000 ml 20ML/HR GT 03/09/25 23:30 03/11/25 08:22 1,000 ML Micafungin Sodium 100 mg/Sodium Chloride 100 ml @ 100 mls/hr DAILY IV 03/13/25 10:00 03/18/25 11:41 100 MLS/HR Potassium Chloride 100 ml @ 50 mls/hr Q2H IV 03/13/25 10:00 03/13/25 13:59 UNV Levothyroxine Sodium 50 mcg QAM@0600 PO 03/15/25 06:00 03/18/25 04:57 50 MCG Norepinephrine Bitartrate 32 mg/ Sodium Chloride 250 ml @ 0.938 mls/ hr Q24H IV 03/16/25 09:00 03/17/25 09:00 1.406 MLS/HR Epoetin Javan-epbx 10,000 unit 2XW@2100 SC 03/19/25 21:00 Piperacillin Sod/ Tazobactam Sod 100 ml @ 25 mls/hr Q12HR IV 03/16/25 22:00 03/18/25 13:16 25 MLS/HR objective VITAL SIGNS: She is on Trach collar, moderately obese GENERAL: CRISTIANE No cyanosis or jaundice.; NG tube output is minimal and bilious clear NECK: Supple, nontender with no thyromegaly, lymphadenopathy. CHEST AND LUNGS: Relatively clear.decreased BS at bases ABDOMEN: soft , obese; hypoactive bowel sounds RECTAL: Reported no fecal impaction and no stool in the vault laboratory and microbiology Laboratory Tests 03/18/25 09:00 03/18/25 04:54 03/18/25 03:56 Test 03/18/25 03:56 Range/Units Serum Glucose 120 H 74-106 mg/dL Problems(with codes): (1) Atrial fibrillation (2) Gaseous distention of intestine determined by X-ray (3) Non-STEMI (non-ST elevated myocardial infarction) (4) CHF (congestive heart failure) (5) Morbid obesity (6) Elevated troponin Prognosis Plan Patient getting hemodialysis today She is getting IV heparin Patient is moving her bowels She is tolerating tube feedings Continue supportive care Obese patient is awaiting transfer to LTAC Neurology consult requested Dietary Evaluation Review Comments: 1. Disagree with current TF orders, change to Vital HP @ 40 ml/hr continuously 2. Provide free water flushes of 30 ml Q8 hrs (90 ml total); adjust PRN 3. Monitor BMP/lytes and replete to WNL 4. When appropriate for oral diet, recommend Cardiac diet as tolerated TF Provision: TF at goal to provide 960 ml total volume, 960 kcal (+958 kcal via propofol = 1918 kcal), 84 gm pro, 0 gm fiber, 107 gm CHO, 801 ml H20 (meets 100% est. kcal needs, 100% est. pro needs) Expected Outcomes/Goals: Improved nutritional status, hemodynamic stability. Plan discussed with: Other (ICU Nurse) ROLAN SAHA MD Mar 18, 2025 17:31
--- NOTE | 2025-03-18 19:14 | DVHPNRES ---
Progress Note Date Seen: Mar 18, 2025 Resident Creating Document: NENA ZHOU RESIDENT Medical Necessity Reason Pt with a Central, PICC or Fol: Yes The following are medically ne: Serrano Catheter Reason for serrano catheter: Strict I&O Subjective Review of Systems Patient seen and examined at bedside, on trach collar trial, no sedation. following commands. Patient will be discharge to LTAC, will continue home medications as prescribed in spread sheet. Follow-up with PCP. Patient verbalized understanding and agree with the DC plan, we spent over 30 minutes explaining the plan. Objective vital signs Vital Sign Date Time Temp Pulse Resp B/P (MAP) Pulse Ox O2 Delivery O2 Flow Rate FiO2 03/18/25 18:45 99 23 86/27 (46) 95 03/18/25 18:00 30 03/18/25 18:00 Trach Collar 10 03/18/25 16:00 98.7 98.7 Total Intake and Output 03/17/25 03/17/25 03/18/25 15:00 23:00 07:00 Intake Total 444.686 ml 310.157 ml 426.094 ml Output Total 50 ml 15 ml Balance 444.686 ml 260.157 ml 411.094 ml medications Current Medications Medications Dose Ordered Sig/Adolfo Route Start Time Stop Time Status Last Admin Dose Admin Ipratropium [place] 0.5 mg Q6HR NEB 02/19/25 18:00 03/18/25 18:35 0.5 MG Dextrose 50 ml UD PRN IV 02/22/25 07:15 Cancel Pantoprazole Sodium 40 mg DAILY IV 02/26/25 10:00 03/18/25 11:33 40 MG Levalbuterol HCl 1.25 mg Q6HR NEB 03/02/25 18:00 03/18/25 18:35 1.25 MG Enoxaparin Sodium 140 mg DAILY SC 03/05/25 10:00 UNV Diagnostic Test (Pha) 1 strip Q6HR 03/05/25 12:00 03/18/25 18:52 1 STRIP Insulin Human Regular Q6HR SC 03/05/25 12:00 03/17/25 17:59 2 UNITS Dextrose 50 ml UD PRN IV 03/05/25 07:30 Sodium Chloride 10 ml QSHIFT@10,22 IV 03/06/25 10:00 03/18/25 11:34 10 ML Metoclopramide HCl 5 mg Q8HPRN IV 03/07/25 14:00 03/18/25 14:39 5 MG Albumin Human 50 ml @ 100 mls/hr ENRIQUE PRN IV 03/08/25 14:30 03/13/25 14:29 Cancel Enteral Nutritional Formula 1,000 ml 20ML/HR GT 03/09/25 23:30 03/11/25 08:22 1,000 ML Micafungin Sodium 100 mg/Sodium Chloride 100 ml @ 100 mls/hr DAILY IV 03/13/25 10:00 03/18/25 11:41 100 MLS/HR Potassium Chloride 100 ml @ 50 mls/hr Q2H IV 03/13/25 10:00 03/13/25 13:59 UNV Levothyroxine Sodium 50 mcg QAM@0600 PO 03/15/25 06:00 03/18/25 04:57 50 MCG Norepinephrine Bitartrate 32 mg/ Sodium Chloride 250 ml @ 0.938 mls/ hr Q24H IV 03/16/25 09:00 03/17/25 09:00 1.406 MLS/HR Epoetin Javan-epbx 10,000 unit 2XW@2100 SC 03/19/25 21:00 Piperacillin Sod/ Tazobactam Sod 100 ml @ 25 mls/hr Q12HR IV 03/16/25 22:00 03/18/25 13:16 25 MLS/HR Examination Physical examination as below: General: Mechanically ventilated, tracheostomy HEENT: Head is normocephalic and atraumatic. Pupils are equal, round, and reactive to light. Neck: Supple with no cervical lymphadenopathy. Heart: Regular rate without murmur, rub, or gallop. Lungs: Mild bilateral diffuse crackles and scattered wheezing Abdomen: No external sign of injury. Bowel sounds are present. Abdomen is soft, nontender. Distended Extremities: Strong peripheral pulses. There is no clubbing, no cyanosis, and no edema. Skin: No rash. laboratory and microbiology Laboratory Tests 03/18/25 09:00 03/18/25 04:54 03/18/25 03:56 Test 03/18/25 03:56 Range/Units Serum Glucose 120 H 74-106 mg/dL Microbiology Date/Time Source Procedure Growth Status 03/14/25 12:10 Blood Blood Culture - Preliminary NO GROWTH AFTER 72 HOURS OF INCUBATION. Resulted 03/07/25 20:36 Urine - [place] Urine Culture - Final Yeast, not Rekha albicans Complete 03/03/25 16:40 Sputum Gram Stain - Final Complete 03/03/25 16:40 Sputum Respiratory Culture - Final Complete 02/21/25 09:30 Nose MRSA Screen - Final Complete Labs and/or images reviewed: Labs reviewed by me, Image(s) reviewed by me Problem List/Assessment/Plan Problem List/Assessment/Plan Neurology #Metabolic encephalopathy due to sepsis On fentanyl and propofol, off Cardiovascular #Acute on chronic diastolic CHF with RV failure #Pulmonary hypertension, class 2 vs 3, moderate-severe #NSTEMI likely type 2 #Atrial fibrillation with rapid ventricular rate #Tricuspid regurgitation, [id number] degree #Pericardial effusion On hemodialysis as needed Cardiology following Held Lovenox 1mg/kg qd due to thrombocytopenia and active bleeding Pulmonology #Acute on chronic hypoxic and hypercarbic respiratory failure, on mechanical ventilator, s/p tracheostomy #Obstructive sleep apnea #Obesity hypoventilation syndrome #Respiratory acidosis, compensated #Pneumonia, gram (+) vs gram (-), atypicals #COPD exacerbation #Mucous plugs s/p bronch 03/03/25 On trach collar trials: FIO2: 30%. PEEP: 5. RR: 20. TV: 450ml DuoNebs q6hrs zosyn IV trach collar trials Nephrology #AN, likely ATN Monitor, continue HD Nephrology following Endocrinology #Morbid obesity Gastroenterology #Bowel distention, possible SBO, ileus #Constipation Reviewed KUB, cannot fit CAT scan Consulted GI for decompression, performed on 03/07/25 intrabdominal pressure down from 19-13 to 8 on 03/11/25 tube feeding: Glucerna #Transaminitis, likely due to sepsis Monitor, trending down Hematology and Oncology #Thrombocytopenia likely due to sepsis monitor ordered desmopressin one time transfused 1 unit of platelets #Anemia normocytic normochromic Monitor, currently stable #Leukopenia Filgrastim Infectious Disease #Septic shock due to Pneumonia, gram (+) vs gram (-), atypicals Zosyn IV #UTI, complicated, growing VRE possible colonization #Fungal UTI Micafungin iv panculture ordered Dermatology X Gynecology #Vaginal bleeding 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 DVT ppx Lovenox PUD ppx Protonix Drips Levo 6 Fent Propofol Lines PICC line 03/06/25 PRITI right, non-tunneled dialysis 03/03/25, consulted radiology for tunneled catheter ReIntubated 03/03/25 Intubated 1st 02/20, extubated 03/01, tracheostomy 03/12/25 Updated family member on patient's current status. consulted [facility] for LTAC, pending acceptance Goals of care were discussed for over 30 minutes. FULL CODE. Critical care time spent excluding procedures was 81 mins Case was discussed with Dr. Holley Plan discussed with: Spouse, Other (RN) My Orders My Orders Orders - NENA ZHOU Procedure Category Date Status Time Urine Bacterial MINA 03/18/25 Logged Culture 06:58 Respiratory Culture MINA 03/18/25 Logged W/ Gs 06:58 * Radiologist Consult CONS 03/18/25 Transmitted 15:50 Complete Blood Count LAB 03/19/25 Verified 04:00 Comprehensive LAB 03/19/25 Verified Metabolic Panel 04:00 Magnesium LAB 03/19/25 Verified 04:00 Chest Portable XY 03/19/25 Verified 04:00 Dietary Evaluation Review Comments: 1. Disagree with current TF orders, change to Vital HP @ 40 ml/hr continuously 2. Provide free water flushes of 30 ml Q8 hrs (90 ml total); adjust PRN 3. Monitor BMP/lytes and replete to WNL 4. When appropriate for oral diet, recommend Cardiac diet as tolerated TF Provision: TF at goal to provide 960 ml total volume, 960 kcal (+958 kcal via propofol = 1918 kcal), 84 gm pro, 0 gm fiber, 107 gm CHO, 801 ml H20 (meets 100% est. kcal needs, 100% est. pro needs) Expected Outcomes/Goals: Improved nutritional status, hemodynamic stability. Date of Service: Mar 18, 2025 Billing Provider: MARY LOU HOLLEY MD Common Visit Codes: 17677-[id number] CARE 30-74 MIN, 37897-[id number] CARE-EACH +30MIN NENA ZHOU Mar 18, 2025 19:14 MARY LOU HOLLEY MD Mar 19, 2025 12:39
[2025-03-18 20:32] LABS: Base Excess -0.7 mmol/L (-2.0-3.0)
[2025-03-19] VITALS (74 sets, daily range): BP systolic 84–141; BP diastolic 42–90; PULSE 76–107; RESP 10–27; TEMP 97.7–98.9; O2SAT 90–100
[2025-03-19 04:19] LABS: Hemoglobin 9.5 g/dL (12.2-16.2); White Blood Cell 2.6 10^3/uL (4.4-10.8)
[2025-03-19 04:24] LABS: Mean Corpuscular Hemoglobin 31.3 pg (28.0-32.0); Mean Corpuscular Hgb Conc. 32.8 g/dL (32.0-36.0); Mean Corpuscular Volume 95.5 fL (80.0-100.0); Platelet Count (auto) 45 10^3/uL (140-450); Red Blood Cells 3.03 10^6/uL (4.0-5.20); Red Cell Distribution Width 20.1 % (11.8-14.3)
[2025-03-19 04:39] LABS: Basophils % (manual) 0 (0.0-2.0); Metamyelocytes % 0; Myelocytes % 0
[2025-03-19 04:40] LABS: Promyelocytes % 0; Reactive Lymphocytes 0
[2025-03-19 04:44] LABS: Anion Gap 13 (5-15); Aspartate Aminotransferase 31 U/L (13-40); Calcium 9.2 mg/dL (8.7-10.4); Carbon Dioxide 24 mmol/L (20-31); Chloride 102 mmol/L (98-107); Sodium 139 mmol/L (136-145)
[2025-03-19 04:45] LABS: BUN/Creatinine Ratio 9.7 (10.0-20.0); Bilirubin, Total 0.4 mg/dL (0.2-1.0)
[2025-03-19 04:52] LABS: Alkaline Phosphatase 123 U/L (46-116); Glucose 125 mg/dL (74-106); Total Protein 4.9 g/dL (5.7-8.2)
[2025-03-19 04:53] LABS: Alanine Aminotransferase 14 U/L (7-40); Albumin 2.5 g/dL (3.2-4.8); Blood Urea Nitrogen 26 mg/dL (9-23); Potassium 3.8 mmol/L (3.5-5.1)
--- NOTE | 2025-03-19 05:15 | DVH ---
CHEST RADIOGRAPH Indication: sob Technique: Single frontal view of the chest was obtained Comparison: XY CHEST PORTABLE on DOS: 03/18/25 FINDINGS: Lines and Tubes: Tracheostomy tube is unchanged in position. Right central venous catheter terminate s in the superior vena cava. The enteric tube courses below the left hemidiaphragm and the tip extend s outside the field of view. Right PICC terminates in the superior vena cava. Lungs: Hazy bilateral airspace disease. Pleura: No effusion. No pneumothorax. Cardiomediastinal contours: Cardiomegaly. Bones: Unremarkable IMPRESSION: 1. Hazy bilateral airspace disease which may reflect pulmonary edema or pneumonia. 2. Cardiomegaly.
--- NOTE | 2025-03-19 06:51 | DVHPNRES ---
Progress Note Date Seen: Mar 19, 2025 Resident Creating Document: NENA ZHOU RESIDENT Medical Necessity Reason Pt with a Central, PICC or Fol: Yes The following are medically ne: Serrano Catheter Reason for serrano catheter: Strict I&O Subjective Review of Systems Patient seen and examined at bedside, on trach collar trial, no sedation. following commands. tunneled dialysis catheter to be placed today. Patient will be discharge to LTAC today, will continue home medications as prescribed in spread sheet. Follow-up with PCP. Patient verbalized understanding and agree with the DC plan, we spent over 30 minutes explaining the plan. DC summary already done and updated. Objective vital signs Vital Sign Date Time Temp Pulse Resp B/P (MAP) Pulse Ox O2 Delivery O2 Flow Rate FiO2 03/19/25 06:22 79 18 112/57 (75) 99 30 03/19/25 06:00 Mechanical Ventilator+ 03/19/25 04:00 98.9 98.9 03/18/25 19:25 8.0 Total Intake and Output 03/18/25 03/18/25 03/19/25 15:00 23:00 07:00 Intake Total 178.593 ml 325.907 ml 347.250 ml Output Total 50 ml 0 ml Balance 178.593 ml 275.907 ml 347.250 ml medications Current Medications Medications Dose Ordered Sig/Adolfo Route Start Time Stop Time Status Last Admin Dose Admin Ipratropium [place] 0.5 mg Q6HR NEB 02/19/25 18:00 03/19/25 06:22 0.5 MG Dextrose 50 ml UD PRN IV 02/22/25 07:15 Cancel Pantoprazole Sodium 40 mg DAILY IV 02/26/25 10:00 03/18/25 11:33 40 MG Levalbuterol HCl 1.25 mg Q6HR NEB 03/02/25 18:00 03/19/25 06:22 1.25 MG Enoxaparin Sodium 140 mg DAILY SC 03/05/25 10:00 UNV Diagnostic Test (Pha) 1 strip Q6HR 03/05/25 12:00 03/19/25 05:54 1 STRIP Insulin Human Regular Q6HR SC 03/05/25 12:00 03/17/25 17:59 2 UNITS Dextrose 50 ml UD PRN IV 03/05/25 07:30 Sodium Chloride 10 ml QSHIFT@ IV 03/06/25 10:00 03/18/25 22:13 10 ML Metoclopramide HCl 5 mg Q8HPRN IV 03/07/25 14:00 03/18/25 21:59 5 MG Albumin Human 50 ml @ 100 mls/hr ENRIQUE PRN IV 03/08/25 14:30 03/13/25 14:29 Cancel Enteral Nutritional Formula 1,000 ml 20ML/HR GT 03/09/25 23:30 03/11/25 08:22 1,000 ML Micafungin Sodium 100 mg/Sodium Chloride 100 ml @ 100 mls/hr DAILY IV 03/13/25 10:00 03/18/25 11:41 100 MLS/HR Potassium Chloride 100 ml @ 50 mls/hr Q2H IV 03/13/25 10:00 03/13/25 13:59 UNV Levothyroxine Sodium 50 mcg QAM@0600 PO 03/15/25 06:00 03/19/25 05:54 50 MCG Norepinephrine Bitartrate 32 mg/ Sodium Chloride 250 ml @ 0.938 mls/ hr Q24H IV 03/16/25 09:00 03/17/25 09:00 1.406 MLS/HR Epoetin Javan-epbx 10,000 unit 2XW@2100 SC 03/19/25 21:00 Piperacillin Sod/ Tazobactam Sod 100 ml @ 25 mls/hr Q12HR IV 03/16/25 22:00 03/18/25 22:00 25 MLS/HR Examination Physical examination as below: General: Mechanically ventilated, tracheostomy HEENT: Head is normocephalic and atraumatic. Pupils are equal, round, and reactive to light. Neck: Supple with no cervical lymphadenopathy. Heart: Regular rate without murmur, rub, or gallop. Lungs: Mild bilateral diffuse crackles and scattered wheezing Abdomen: No external sign of injury. Bowel sounds are present. Abdomen is soft, nontender. Distended Extremities: Strong peripheral pulses. There is no clubbing, no cyanosis, and no edema. Skin: No rash. laboratory and microbiology Laboratory Tests 03/19/25 03:56 Test 03/19/25 03:56 Range/Units Serum Glucose 125 H 74-106 mg/dL Microbiology Date/Time Source Procedure Growth Status 03/14/25 12:10 Blood Blood Culture - Preliminary NO GROWTH AFTER 72 HOURS OF INCUBATION. Resulted 03/07/25 20:36 Urine - [place] Urine Culture - Final Yeast, not Rekha albicans Complete 03/03/25 16:40 Sputum Gram Stain - Final Complete 03/03/25 16:40 Sputum Respiratory Culture - Final Complete 02/21/25 09:30 Nose MRSA Screen - Final Complete Labs and/or images reviewed: Labs reviewed by me, Image(s) reviewed by me Problem List/Assessment/Plan Problem List/Assessment/Plan Neurology #Metabolic encephalopathy due to sepsis, hypoxia and hypercarbia On fentanyl and propofol, off Cardiovascular #Acute on chronic diastolic CHF with RV failure #Pulmonary hypertension, class 2 vs 3, moderate-severe #NSTEMI likely type 2 #Atrial fibrillation with rapid ventricular rate #Tricuspid regurgitation, [id number]-[id number] degree #Pericardial effusion On hemodialysis as needed Cardiology following Held Lovenox 1mg/kg qd due to thrombocytopenia and active bleeding Pulmonology #Acute on chronic hypoxic and hypercarbic respiratory failure, on mechanical ventilator, s/p tracheostomy #Obstructive sleep apnea #Obesity hypoventilation syndrome #Respiratory acidosis, compensated #Pneumonia, gram (+) vs gram (-), atypicals #COPD exacerbation #Mucous plugs s/p bronch 03/03/25 On trach collar trials: FIO2: 30%. PEEP: 5. RR: 20. TV: 450ml DuoNebs q6hrs zosyn IV trach collar trials Nephrology #AN, likely ATN Monitor, continue HD Nephrology following tunneled dialysis catheter placed today 03/19/25 Endocrinology #Morbid obesity Gastroenterology #Bowel distention, possible SBO, ileus #Constipation Reviewed KUB, cannot fit CAT scan Consulted GI for decompression, performed on 03/07/25 intrabdominal pressure down from 19-13 to 8 on 03/11/25 tube feeding: Glucerna #Transaminitis, likely due to sepsis Monitor, trending down Hematology and Oncology #Thrombocytopenia likely due to sepsis monitor ordered desmopressin one time transfused 1 unit of platelets #Anemia normocytic normochromic Monitor, currently stable #Leukopenia Filgrastim Infectious Disease #Septic shock due to Pneumonia, gram (+) vs gram (-), atypicals Zosyn IV #UTI, complicated, growing VRE possible colonization #Fungal UTI Micafungin iv panculture ordered Dermatology X Gynecology #Vaginal bleeding Consulted [facility], bleeding intermittently Pelvic US: Unable to visualize uterus and both ovaries. DVT ppx Lovenox PUD ppx Protonix Drips Levo 6 Fent Propofol Lines PICC line 03/06/25 PRITI right, non-tunneled dialysis 03/03/25, consulted radiology for tunneled catheter, placed on 03/19/25 ReIntubated 03/03/25 Intubated 1st 02/20, extubated 03/01, tracheostomy 03/12/25 Updated family member on patient's current status. patient is going to LTAC today. Goals of care were discussed for over 30 minutes. FULL CODE. Critical care time spent excluding procedures , including monitoring during trach collar trial was 81 mins Case was discussed with Dr. Holley Plan discussed with: Spouse, Other (RN) My Orders My Orders Orders - NENA ZHOU Procedure Category Date Status Time Urine Bacterial MINA 03/18/25 Logged Culture 06:58 Respiratory Culture MINA 03/18/25 Logged W/ Gs 06:58 * Radiologist Consult CONS 03/18/25 Transmitted 15:50 Complete Blood Count LAB 03/19/25 In Process 04:00 Chest Portable XY 03/19/25 Resulted 04:00 Manual Differential LAB 03/19/25 In Process 03:56 Dietary Evaluation Review Comments: 1. Disagree with current TF orders, change to Vital HP @ 40 ml/hr continuously 2. Provide free water flushes of 30 ml Q8 hrs (90 ml total); adjust PRN 3. Monitor BMP/lytes and replete to WNL 4. When appropriate for oral diet, recommend Cardiac diet as tolerated TF Provision: TF at goal to provide 960 ml total volume, 960 kcal (+958 kcal via propofol = 1918 kcal), 84 gm pro, 0 gm fiber, 107 gm CHO, 801 ml H20 (meets 100% est. kcal needs, 100% est. pro needs) Expected Outcomes/Goals: Improved nutritional status, hemodynamic stability. Date of Service: Mar 19, 2025 Billing Provider: MARY LOU HOLLEY MD Common Visit Codes: 38149-[id number] CARE 30-74 MIN, [id number] CARE-EACH +30MIN NENA ZHOU Mar 19, 2025 06:51 MARY LOU HOLLEY MD Mar 23, 2025 12:30
[2025-03-19] MEDS: ALBUMIN 25% 100 ML IV ONE (09:45)
[2025-03-19] MEDS: SODIUM CHL 0.9% 1000 ML BAG XX ONE (10:00)
[2025-03-19 11:03] LABS: Anisocytosis Slight; Band Neutrophils % (manual) 9; Blast Cells 1; Eosinophils % (manual) 1 (0-7); Lymphocytes % (manual) 27 (10.0-50.0); Monocytes % (manual) 18 (0-12); Platelet Estimate Decreased
--- NOTE | 2025-03-19 12:27 | DVHPN2 ---
Progress Note Date Seen: Mar 19, 2025 Medical Necessity Reason Pt with a Central, PICC or Fol: Yes The following are medically ne: Serrano Catheter Reason for serrano catheter: Strict I&O Subjective Review of Systems: Deferred Objective vital signs Vital Sign Date Time Temp Pulse Resp B/P (MAP) Pulse Ox O2 Delivery O2 Flow Rate FiO2 03/19/25 12:00 106 03/19/25 12:00 22 104/55 (71) 03/19/25 12:00 95 Trach Collar 10 40 40 03/19/25 11:00 98.4 98.4 Total Intake and Output 03/18/25 03/18/25 03/19/25 15:00 23:00 07:00 Intake Total 178.593 ml 325.907 ml 349.125 ml Output Total 50 ml 0 ml Balance 178.593 ml 275.907 ml 349.125 ml medications Current Medications Medications Dose Ordered Sig/Adolfo Route Start Time Stop Time Status Last Admin Dose Admin Ipratropium [place] 0.5 mg Q6HR NEB 02/19/25 18:00 03/19/25 11:22 0.5 MG Dextrose 50 ml UD PRN IV 02/22/25 07:15 Cancel Pantoprazole Sodium 40 mg DAILY IV 02/26/25 10:00 03/19/25 08:56 40 MG Levalbuterol HCl 1.25 mg Q6HR NEB 03/02/25 18:00 03/19/25 11:22 1.25 MG Enoxaparin Sodium 140 mg DAILY SC 03/05/25 10:00 UNV Diagnostic Test (Pha) 1 strip Q6HR 03/05/25 12:00 03/19/25 12:18 1 STRIP Insulin Human Regular Q6HR SC 03/05/25 12:00 03/17/25 17:59 2 UNITS Dextrose 50 ml UD PRN IV 03/05/25 07:30 Sodium Chloride 10 ml QSHIFT@ IV 03/06/25 10:00 03/19/25 08:56 10 ML Metoclopramide HCl 5 mg Q8HPRN IV 03/07/25 14:00 03/18/25 21:59 5 MG Albumin Human 50 ml @ 100 mls/hr ENRIQUE PRN IV 03/08/25 14:30 03/13/25 14:29 Cancel Enteral Nutritional Formula 1,000 ml 20ML/HR GT 03/09/25 23:30 03/11/25 08:22 1,000 ML Micafungin Sodium 100 mg/Sodium Chloride 100 ml @ 100 mls/hr DAILY IV 03/13/25 10:00 03/19/25 08:57 100 MLS/HR Potassium Chloride 100 ml @ 50 mls/hr Q2H IV 03/13/25 10:00 03/13/25 13:59 UNV Levothyroxine Sodium 50 mcg QAM@0600 PO 03/15/25 06:00 03/19/25 05:54 50 MCG Norepinephrine Bitartrate 32 mg/ Sodium Chloride 250 ml @ 0.938 mls/ hr Q24H IV 03/16/25 09:00 03/19/25 09:12 1.875 MLS/HR Epoetin Javan-epbx 10,000 unit 2XW@2100 SC 03/19/25 21:00 Piperacillin Sod/ Tazobactam Sod 100 ml @ 25 mls/hr Q12HR IV 03/16/25 22:00 03/19/25 08:58 25 MLS/HR Examination: GENERAL:Abnormal, CVS:Normal, ABDOMEN:Abnormal laboratory and microbiology Laboratory Tests 03/19/25 03:56 Test 03/19/25 03:56 Range/Units Serum Glucose 125 H 74-106 mg/dL Microbiology Date/Time Source Procedure Growth Status 03/14/25 12:10 Blood Blood Culture - Final NO GROWTH AFTER 5 DAYS OF INCUBATION. Complete 03/07/25 20:36 Urine - [place] Urine Culture - Final Yeast, not Rekha albicans Complete 03/03/25 16:40 Sputum Gram Stain - Final Complete 03/03/25 16:40 Sputum Respiratory Culture - Final Complete 02/21/25 09:30 Nose MRSA Screen - Final Complete Problem List/Assessment/Plan Problem List/Assessment/Plan Acute kidney injury due to shock-> acute HD ckd 3a respiratory failure-> s/p trach CHF w/ pulm HTN Illeus COPD, morbid obesity sepsis Iron deficiency anemia thrombocytopenia stable vitals, labs reviewed HD today no heparin, repeated from yesterday IV iron ABX as per primary team Plan discussed with: Other My Orders My Orders Orders - AMINAH HAIDER MD Procedure Category Date Status Time Hemodialysis Orders ORDERS 03/19/25 Transmitted 09:59 Dietary Evaluation Review Comments: 1. Disagree with current TF orders, change to Vital HP @ 40 ml/hr continuously 2. Provide free water flushes of 30 ml Q8 hrs (90 ml total); adjust PRN 3. Monitor BMP/lytes and replete to WNL 4. When appropriate for oral diet, recommend Cardiac diet as tolerated TF Provision: TF at goal to provide 960 ml total volume, 960 kcal (+958 kcal via propofol = 1918 kcal), 84 gm pro, 0 gm fiber, 107 gm CHO, 801 ml H20 (meets 100% est. kcal needs, 100% est. pro needs) Expected Outcomes/Goals: Improved nutritional status, hemodynamic stability. AMINAH HAIDER MD Mar 19, 2025 12:27
[2025-03-19] MEDS: LIDOCAINE 2%HCL (LOCAL ANESTH.) INJ 20ML MDV ONE (15:12)
[2025-03-19] MEDS: HEPARIN SODIUM (PORCINE) 5000 UNITS/ML 1ML VIAL ONE (15:12)
--- NOTE | 2025-03-19 15:44 | DVH ---
XY Insertion of Venous Cath, HISTORY: DIALYSIS CATH PL PROCEDURE: Informed consent was obtained. The patient was placed supine on the interventional table. A limited localization ultrasound of the right neck base was obtained. The right neck base and upper chest were prepped with chlorhexidine which was allowed to dry and draped in the usual sterile fashio n. Time out was performed. IV sedation was administered. The skin and the soft tissues were infiltrat ed with 1% Lidocaine. With real-time ultrasound guidance, the internal jugular vein was accessed with a micropuncture kit, and an image documenting patency was recorded to PACS. A subcutaneous tunneled tract was created from the right upper chest to the venotomy site. A 14.5 [place] [address], 19 cm lo ng hemodialysis catheter was advanced through the tunneled tract. Fluoroscopy was used to advance a guidewire through the internal jugular vein into the inferior vena cava. Following serial dilatation, a 15 [place] peel-away sheath was introduced, though which was adva nced the catheter into the right atrium. The catheter tip position was confirmed with fluoroscopy. Th ere was satisfactory flow in both lumens. The catheter lumens were flushed with saline and heparin wa s left indwelling in the catheter. A post-procedure image of the chest was obtained. The neck incisio n site was closed with a dermabond and dressed sterilely. The catheter was sutured at the skin surfac e and exit site also dressed sterilely. No immediate complication was identified. DAP 153 FLUOROSCOPY TIME: 0.9 minutes. SEDATION: Dr. Sumit Kang was personally responsible for the administration of moderate sedation during the procedure performed, including the use of an independent trained observer who had no other duties during the procedure. The drugs utilized were IV fentanyl and versed (see nursing log for details). The total time of supervision by the attending physician was approximately 30 minutes. FINDINGS: Widely patent right IJV. Post procedure image demonstrates smooth course of the hemodialysi s catheter with the tip in the right atrium. IMPRESSION: Successful placement of 14.5 [place] [address], 19 cm long hemodialysis catheter through right management retail intern al jugular vein. Plan: Please contact IR for removal when no longer needed.
[2025-03-19] MEDS: MORPHINE SULFATE INJ 2 MG/ml SYRG IV ONE (16:02)
--- NOTE | 2025-03-19 20:00 | DVHPN2 ---
Progress Note - Dictate Date Seen: Mar 19, 2025 Medical Necessity Reason Pt with a Central, PICC or Fol: Yes The following are medically ne: Serrano Catheter Reason for serrano catheter: Strict I&O Subjective patient is S/P tracheostomy Now on a trach collar, FiO2 30% Pt has been moving her bowels daily Abdomen is softer and less distended Mild to moderate Pancytopenia vital signs Vital Sign Date Time Temp Pulse Resp B/P (MAP) Pulse Ox O2 Delivery O2 Flow Rate FiO2 03/19/25 18:30 89 23 104/48 (66) 03/19/25 18:15 98 03/19/25 18:00 40 03/19/25 18:00 Trach Collar 10 03/19/25 16:00 98.1 98.1 Total Intake and Output 03/18/25 03/18/25 03/19/25 15:00 23:00 07:00 Intake Total 178.593 ml 325.907 ml 349.125 ml Output Total 50 ml 0 ml Balance 178.593 ml 275.907 ml 349.125 ml medications Current Medications Medications Dose Ordered Sig/Adolfo Route Start Time Stop Time Status Last Admin Dose Admin Ipratropium [place] 0.5 mg Q6HR NEB 02/19/25 18:00 03/19/25 11:22 0.5 MG Dextrose 50 ml UD PRN IV 02/22/25 07:15 Cancel Pantoprazole Sodium 40 mg DAILY IV 02/26/25 10:00 03/19/25 08:56 40 MG Levalbuterol HCl 1.25 mg Q6HR NEB 03/02/25 18:00 03/19/25 11:22 1.25 MG Enoxaparin Sodium 140 mg DAILY SC 03/05/25 10:00 UNV Diagnostic Test (Pha) 1 strip Q6HR 03/05/25 12:00 03/19/25 18:01 1 STRIP Insulin Human Regular Q6HR SC 03/05/25 12:00 03/17/25 17:59 2 UNITS Dextrose 50 ml UD PRN IV 03/05/25 07:30 Sodium Chloride 10 ml QSHIFT@10, IV 03/06/25 10:00 03/19/25 08:56 10 ML Metoclopramide HCl 5 mg Q8HPRN IV 03/07/25 14:00 03/18/25 21:59 5 MG Albumin Human 50 ml @ 100 mls/hr ENRIQUE PRN IV 03/08/25 14:30 03/13/25 14:29 Cancel Enteral Nutritional Formula 1,000 ml 20ML/HR GT 03/09/25 23:30 03/11/25 08:22 1,000 ML Micafungin Sodium 100 mg/Sodium Chloride 100 ml @ 100 mls/hr DAILY IV 03/13/25 10:00 03/19/25 08:57 100 MLS/HR Potassium Chloride 100 ml @ 50 mls/hr Q2H IV 03/13/25 10:00 03/13/25 13:59 UNV Levothyroxine Sodium 50 mcg QAM@0600 PO 03/15/25 06:00 03/19/25 05:54 50 MCG Norepinephrine Bitartrate 32 mg/ Sodium Chloride 250 ml @ 0.938 mls/ hr Q24H IV 03/16/25 09:00 03/19/25 09:12 1.875 MLS/HR Epoetin Javan-epbx 10,000 unit 2XW@2100 SC 03/19/25 21:00 Piperacillin Sod/ Tazobactam Sod 100 ml @ 25 mls/hr Q12HR IV 03/16/25 22:00 03/19/25 08:58 25 MLS/HR objective VITAL SIGNS: She is on Trach collar, moderately obese GENERAL: CRISTIANE No cyanosis or jaundice.; NG tube output is minimal and bilious clear NECK: Supple, nontender with no thyromegaly, lymphadenopathy. CHEST AND LUNGS: Relatively clear.decreased BS at bases ABDOMEN: soft , obese; hypoactive bowel sounds RECTAL: Reported no fecal impaction and no stool in the vault laboratory and microbiology Laboratory Tests 03/19/25 03:56 Test 03/19/25 03:56 Range/Units Serum Glucose 125 H 74-106 mg/dL Problems(with codes): (1) Gaseous distention of intestine determined by X-ray (2) CHF (congestive heart failure) (3) Morbid obesity (4) Acute on chronic diastolic heart failure (5) Chest pain Prognosis Plan Patient getting hemodialysis as scheduled Patient is moving her bowels She is tolerating tube feedings Continue supportive care Obese patient is awaiting transfer to [facility] ;Patient to be transferred to [facility] Neurology consult requested Dietary Evaluation Review Comments: 1. Disagree with current TF orders, change to Vital HP @ 40 ml/hr continuously 2. Provide free water flushes of 30 ml Q8 hrs (90 ml total); adjust PRN 3. Monitor BMP/lytes and replete to WNL 4. When appropriate for oral diet, recommend Cardiac diet as tolerated TF Provision: TF at goal to provide 960 ml total volume, 960 kcal (+958 kcal via propofol = 1918 kcal), 84 gm pro, 0 gm fiber, 107 gm CHO, 801 ml H20 (meets 100% est. kcal needs, 100% est. pro needs) Expected Outcomes/Goals: Improved nutritional status, hemodynamic stability. Plan discussed with: Other (Nurse) ROLAN SAHA MD Mar 19, 2025 20:00
[2025-03-19] MEDS ORDERED: EPOETIN ALFA-EPBX 10,000 UNIT/1ML VIAL SC SCH (21:00)
== END 2025-03-19 19:50 | DRG 5 ==
LOC: ER 10:53 → OVERFLOW 15:10 → EDUNIT# 15:10 → ICU WEST 02-22 04:31
PROVIDERS: ADMIT Internal Medicine; ATTEND Internal Medicine
PROC: 5A1955Z Respiratory Ventilation, Greater than 96 Consecutive Hours (ICD-10-PCS; 2025-02-20)
PROC: 0B9D8ZX Drainage of Right Middle Lung Lobe, Via Natural or Artificial Opening Endoscopic, Diagnostic (ICD-10-PCS; 2025-02-20)
PROC: 0JH63XZ Insertion of Tunneled Vascular Access Device into Chest Subcutaneous Tissue and Fascia, Percutaneous Approach (ICD-10-PCS; 2025-02-20)
PROC: 05HN33Z Insertion of Infusion Device into Left Internal Jugular Vein, Percutaneous Approach (ICD-10-PCS; 2025-02-20)
PROC: 0BH17EZ Insertion of Endotracheal Airway into Trachea, Via Natural or Artificial Opening (ICD-10-PCS; 2025-02-20)
PROC: 5A09357 Assistance with Respiratory Ventilation, Less than 24 Consecutive Hours, Continuous Positive Airway Pressure (ICD-10-PCS; 2025-02-20)
PROC: 0BC78ZZ Extirpation of Matter from Left Main Bronchus, Via Natural or Artificial Opening Endoscopic (ICD-10-PCS; 2025-02-20)
PROC: 5A0935A Assistance with Respiratory Ventilation, Less than 24 Consecutive Hours, High Flow/Velocity Cannula (ICD-10-PCS; 2025-02-28)
PROC: 5A09357 Assistance with Respiratory Ventilation, Less than 24 Consecutive Hours, Continuous Positive Airway Pressure (ICD-10-PCS; 2025-02-28)
PROC: 5A09357 Assistance with Respiratory Ventilation, Less than 24 Consecutive Hours, Continuous Positive Airway Pressure (ICD-10-PCS; 2025-03-01)
PROC: 5A09357 Assistance with Respiratory Ventilation, Less than 24 Consecutive Hours, Continuous Positive Airway Pressure (ICD-10-PCS; 2025-03-02)
PROC: 0BC78ZZ Extirpation of Matter from Left Main Bronchus, Via Natural or Artificial Opening Endoscopic (ICD-10-PCS; 2025-03-03)
PROC: 5A1D70Z Performance of Urinary Filtration, Intermittent, Less than 6 Hours Per Day (ICD-10-PCS; 2025-03-03)
PROC: 5A1955Z Respiratory Ventilation, Greater than 96 Consecutive Hours (ICD-10-PCS; 2025-03-03)
PROC: 5A09357 Assistance with Respiratory Ventilation, Less than 24 Consecutive Hours, Continuous Positive Airway Pressure (ICD-10-PCS; 2025-03-03)
PROC: 0BC38ZZ Extirpation of Matter from Right Main Bronchus, Via Natural or Artificial Opening Endoscopic (ICD-10-PCS; 2025-03-03)
PROC: 5A1D70Z Performance of Urinary Filtration, Intermittent, Less than 6 Hours Per Day (ICD-10-PCS; 2025-03-04)
PROC: 5A1D70Z Performance of Urinary Filtration, Intermittent, Less than 6 Hours Per Day (ICD-10-PCS; 2025-03-06)
PROC: 02HV33Z Insertion of Infusion Device into Superior Vena Cava, Percutaneous Approach (ICD-10-PCS; 2025-03-06)
PROC: 0DJD8ZZ Inspection of Lower Intestinal Tract, Via Natural or Artificial Opening Endoscopic (ICD-10-PCS; principal; 2025-03-07 08:45)
PROC: 30233N1 Transfusion of Nonautologous Red Blood Cells into Peripheral Vein, Percutaneous Approach (ICD-10-PCS; 2025-03-08)
PROC: 5A1D70Z Performance of Urinary Filtration, Intermittent, Less than 6 Hours Per Day (ICD-10-PCS; 2025-03-08)
PROC: 5A1D70Z Performance of Urinary Filtration, Intermittent, Less than 6 Hours Per Day (ICD-10-PCS; 2025-03-11)
PROC: 0B110Z4 Bypass Trachea to Cutaneous, Open Approach (ICD-10-PCS; 2025-03-12)
PROC: 30233R1 Transfusion of Nonautologous Platelets into Peripheral Vein, Percutaneous Approach (ICD-10-PCS; 2025-03-14)
PROC: 5A1D70Z Performance of Urinary Filtration, Intermittent, Less than 6 Hours Per Day (ICD-10-PCS; 2025-03-14)
PROC: 5A1D70Z Performance of Urinary Filtration, Intermittent, Less than 6 Hours Per Day (ICD-10-PCS; 2025-03-18)
PROC: 5A1D70Z Performance of Urinary Filtration, Intermittent, Less than 6 Hours Per Day (ICD-10-PCS; 2025-03-19)
PROC: B518ZZA Fluoroscopy of Superior Vena Cava, Guidance (ICD-10-PCS; 2025-03-19)
PROC: B548ZZA Ultrasonography of Superior Vena Cava, Guidance (ICD-10-PCS; 2025-03-19)
DX: A41.50 Gram-negative sepsis, unspecified (principal); N17.0 Acute kidney failure with tubular necrosis; R65.21 Severe sepsis with septic shock; G93.41 Metabolic encephalopathy; D61.818 Other pancytopenia; J15.69 Pneumonia due to other Gram-negative bacteria; J96.21 Acute and chronic respiratory failure with hypoxia; I31.39 Other pericardial effusion (noninflammatory); I50.33 Acute on chronic diastolic (congestive) heart failure; D68.69 Other thrombophilia; I21.A1 Myocardial infarction type 2; J96.22 Acute and chronic respiratory failure with hypercapnia; J98.09 Other diseases of bronchus, not elsewhere classified; Z68.44 Body mass index [BMI] 60.0-69.9, adult; E87.5 Hyperkalemia; E78.5 Hyperlipidemia, unspecified; I27.20 Pulmonary hypertension, unspecified; E66.2 Morbid (severe) obesity with alveolar hypoventilation; J44.1 Chronic obstructive pulmonary disease with (acute) exacerbation; K56.7 Ileus, unspecified; N39.0 Urinary tract infection, site not specified; E11.22 Type 2 diabetes mellitus with diabetic chronic kidney disease; Z20.822 Contact with and (suspected) exposure to COVID-19; R74.01 Elevation of levels of liver transaminase levels; D50.9 Iron deficiency anemia, unspecified; D69.59 Other secondary thrombocytopenia; E87.4 Mixed disorder of acid-base balance; I13.0 Hypertensive heart and chronic kidney disease with heart failure and stage 1 through stage 4 chronic kidney disease, or unspecified chronic kidney disease; K59.01 Slow transit constipation; N18.31 Chronic kidney disease, stage 3a; I07.1 Rheumatic tricuspid insufficiency; N95.0 Postmenopausal bleeding; J44.0 Chronic obstructive pulmonary disease with (acute) lower respiratory infection; I48.0 Paroxysmal atrial fibrillation; Z79.01 Long term (current) use of anticoagulants; Z79.4 Long term (current) use of insulin; Z93.0 Tracheostomy status; Z99.11 Dependence on respirator [ventilator] status; Z99.2 Dependence on renal dialysis; Z99.81 Dependence on supplemental oxygen; J15.9 Unspecified bacterial pneumonia
CPT/HCPCS: 36415; 36558; 36569; 36600; 71045; 74018; 76604; 76775; 76830; 76856; 76857; 77001; 80048; 80053; 80061; 80074; 80162; 81001; 82306; 82533; 82550; 82570; 82728; 82805; 82962; 83036; 83540; 83550; 83605; 83735; 83880; 83970; 84100; 84132; 84156; 84300; 84439; 84443; 84480; 84481; 84484; 85007; 85014; 85018; 85025; 85027; 85610; 85730; 86850; 86900; 86901; 86920; 87040; 87070; 87081; 87086; 87088; 87186; 87205; 87426; 87804; 90935; 93005; 93306; 93970; 94002; 94003; 94640; 94660; 96365; 96366; 96367; 96375; 96376; 99152; 99291; C1894; G0378; J0330; J0692; J1447; J1642; J1756; J1815; J2248; J2470; J2543; J2704; J3430; J3480; J7060; P9047